=== PATIENT | male | born 1965 | race Caucasian/White ===

== ENCOUNTER 2022-05-08 15:30 | Outpatient (RCR) | payer BC, SELFPAY ==
--- NOTE | 2022-04-04 15:50 | PT.OPEX ---
PT [facility] Outpatient Eval PT [facility] Outpatient Eval Start: 04/04/22 14:13 Freq: Status: Active Protocol: Document 04/04/22 14:14 FRANK (Rec: 04/04/22 14:14 FRANK [id number]) E-Signed By RANDY LandersT, MS Physical Therapy Outpatient Evaluation Insurance Information Insurance Name Blue Cross/Blue Shield Medical Diagnosis Cervicalgia Treating Diagnosis Neck pain, decreased B CS and UE flexibility, posture dysfunction, and deep cervical flexor and periscap weakness Subjective Subjective Pt is a 56 y.o. male who presents to PT with c/o chronic HAs and neck pain of insidious origin several months ago. Believes significant time spent working at a computer and sitting posture led to sxs. No previous hx of HAs. Describes sxs as aching that begins at B occiput, wrapping around his head surrounding B eyes. Daily neck stiffness/soreness with 1-2 incidents of severe HAs with no known cause. Chiropractor provided temporary relief. No exercise but walks occasionally. PSh of renal transplant in 2010. AGGR factors: computer work, turning head (L>R), driving. ALLEV factors: hot shower, rest. 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 HAs appear to be of cervicogenic origin with recreation of sxs with palpation to B SO and upper CS tor. B SO muscles display hypertonicity with TPs. 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 He responded well to MT, stretching and strengthening exercises with resolution of GOMEZ and neck pain following today?s session. He will benefit from continued skilled therapy to address these limitations. Primary Functional Limitations Computer work, turning head (L >R), driving Plan of Care Rehabilitation Potential Excellent Physical Therapy Goals Short-term goals to be completed in 4 weeks: 1. Pt will display >50% improvement in I sitting posture for >1 consecutive PT visit 2. Pt will report improved tolerance to sitting at a computer for >20 minutes with neck pain and HAs <3/10 for 2 consecutive days. Long-term goals to be completed in 10 weeks: 1. Pt will be independent and compliant with HEP 2. Pt will display improved B low and mid trap strength of 5 /5 to improve tolerance to lifting duties at home. 3. Pt will display improved B CS rot AROM >75 deg to check blind spots while driving. 4. Pt will report resolution of GOMEZ sxs for >3 consecutive days with all work and daily activities. Coordination/Communication With Referral Source Treatment Plan/Direct Interventions Joint Mobilization,Manual Therapy,Therapeutic Exercises Frequency/Duration 1x per week for least 6-10 visits, decreasing visit frequency as able. Patient Will Be Discharged From Therapy Completion of LTG(s),Skills Plateau,Independent w/HEP, Independently Progressing Evaluation Billing Untimed Code Treatment Minutes 25 Complexity Moderate
== END 2022-11-23 12:59 | disposition home or self-care (01) ==
PROVIDERS: PCP Internal Medicine; Visit Provider Internal Medicine
DX: M54.2 Cervicalgia (principal); M62.81 Muscle weakness (generalized); Z51.89 Encounter for other specified aftercare
CPT/HCPCS: 97110; 97140; 97162

== ENCOUNTER 2022-05-23 08:06 | Outpatient (CLI) | payer BC, SELFPAY ==
[2022-05-23 11:37] LABS: Phosphorus* 2.6 mg/dL (2.5-4.5)
[2022-05-23 12:39] LABS: Creatinine Urine 95.1 mg/dL
[2022-05-23 12:43] LABS: Microalbumin Creatinine Ratio 10 mg/g (0-30); Microalbumin Urine < 1 mg/dL
[2022-05-23 15:12] LABS: Creatinine* 1.5 mg/dL (0.5-1.5); Estimated Glomerular Filt Rate 55 ml/min; Glucose* 125 mg/dL (60-115)
[2022-05-23 15:23] LABS: Potassium* 4.6 mmol/L (3.6-5.1)
== END 2022-05-23 08:07 | disposition home or self-care (01) ==
PROVIDERS: PCP Internal Medicine; Visit Provider Internal Medicine
DX: D84.821 Immunodeficiency due to drugs (principal); Z79.899 Other long term (current) drug therapy; Z94.0 Kidney transplant status
CPT/HCPCS: 82043; 82565; 82570; 82947; 83735; 84100; 84132

== ENCOUNTER 2022-06-20 07:52 | Outpatient (CLI) | payer BC, SELFPAY ==
--- OUTSIDE RECORDS SUMMARY | 2022-06-20 08:10 | XMS_ITS | Encounter Summary ---
:1965 Author Organization [facility] Address [address] [place] [address] Care Team Providers Name Role Phone Unavailable Primary Care Provider Unavailable Encounter Details Date Type Department Care Team Description 09/29/2011 Hospital Encounter HX RST CRS FLOOR Lanre Lopes, PRACTICE P.A.-C., M.S. [address] [place] [address] (Wo rk) Social History Tobacco Use Types Packs/Day Years Used Date Smoking Tobacco: Never Assessed Alcohol Habits Answer Date Recorded How often do you have a drink containing 4 or more times a w false pass 05/12/2021 alcohol? How many drinks containing alcohol do you have 1 or 2 05/12/2021 on a typical day when you are drinking? How often do you have six or more drinks on one Never 05/12/2021 occasion? Comment: Not asked Social Isolation Answer Date Recorded In a typical week, how many times do you talk on Three times a week 05/12/2021 the phone with family, friends, or neighbors? How often do you get together with friends or Once a week 05/12/2021 relatives? How often do you attend druze or protestant Never 05/12/2021 services? Do you belong to any clubs or organizations such No 05/12/2021 as druze groups, unions, fraternal or athletic groups, or school groups? How often do you attend meetings of the clubs or 1 to 4 time s per year 05/12/2021 organizations you belong to? Are you now , , , 05/12/2021 , never or living with a partner? Physical Activity Answer Date Recorded On average, how many days per week do you engage in moderate to 5 days 05/12/2021 strenuous exercise (like walking fast, running, jogging, dancing, swimming, biking, or other activities that cause a light or heavy sweat)? On average, how many minutes do you engage in exercise at th is 30 min 05/12/2021 level? Stress Answer Date Recorded Do you feel stress - tense, restless, nervous, or Only a lit tle 05/12/2021 anxious, or unable to sleep at night because your mind is troubled all the time - these days? Financial Resource Strain Answer Date Recorded How hard is it for you to pay for the very basics like Not h loren at all 05/12/2021 food, housing, medical care, and heating? Food Insecurity Answer Date Recorded Within the past 12 months, you worried that your food would Never true 05/12/2021 run out before you got money to buy more. Within the past 12 months, the food you bought just didn't N ever true 05/12/2021 last and you didn't have money to get more. Transportation Needs Answer Date Recorded In the past 12 months, has lack of transportation kept you f rom No 05/12/2021 medical appointments or from getting medications? In the past 12 months, has lack of transportation kept you f rom No 05/12/2021 meetings, work, or getting things needed for daily living? Housing Stability Answer Date Recorded In the last 12 months, was there a time when you were not ab le No 05/12/2021 to pay the mortgage or rent on time? In the last 12 months, how many places have you lived? 1 05/12/2021 In the last 12 months, was there a time when you did not hav e a No 05/12/[address] sleep or slept in a intermediate (including now)? Sex Assigned at Date Recorded Male 05/27/2018 8:52 AM CDT documented as of this encounter Plan of Treatment Not on filedocumented as of this encounter Visit Diagnoses Not on filedocumented in this encounter Additional Health Concerns Assessment Noted Time PHQ-9 Depression Total Score: 5 01/04/2011 8:09 AM CDT documented as of this encounter
[2022-06-20 09:46] LABS: Potassium* 4.8 mmol/L (3.6-5.1)
[2022-06-20 09:49] LABS: Creatinine* 1.5 mg/dL (0.5-1.5); Estimated Glomerular Filt Rate 55 ml/min
[2022-06-20 09:50] LABS: Glucose* 100 mg/dL (60-115); Magnesium* 2.1 mg/dL (1.5-2.6); Phosphorus* 3.4 mg/dL (2.5-4.5)
[2022-06-20 09:59] LABS: Creatinine Urine 83.2 mg/dL
[2022-06-20 10:05] LABS: Microalbumin Creatinine Ratio 10 mg/g (0-30); Microalbumin Urine < 1 mg/dL
== END 2022-06-20 07:53 | disposition home or self-care (01) ==
PROVIDERS: PCP Internal Medicine; Visit Provider Internal Medicine
DX: D84.821 Immunodeficiency due to drugs (principal); Z79.899 Other long term (current) drug therapy; Z94.0 Kidney transplant status
CPT/HCPCS: 82043; 82565; 82570; 82947; 83735; 84100; 84132

== ENCOUNTER 2022-08-23 09:38 | Outpatient (REF) | payer BC, SELFPAY ==
--- OUTSIDE RECORDS SUMMARY | 2022-08-23 09:57 | XMS_ITS | Encounter Summary ---
:1965 Author Organization [facility] Address [address] [place] [address] Care Team Providers Name Role Phone Elsewhere, Pcp Primary Care Provider Unavailable Encounter Details Date Type Department Care Team Description 08/14/2022 Hospital Encounter Department of Bryce, Gail [facility] Medicine [facility] (HCC) and Pathology, [address] [place] [address], in [facility] [address] [place] [phone] [place] [address] (Work) [place], [place] [phone] (Fax) [phone] Social History Tobacco Use Types Packs/Day Years Used Date Smoking Tobacco: Never Smokeless Tobacco: Never Alcohol Use Standard Drinks/Week Comments Yes 4 (1 standard drink = 0.6 oz pure alcoho l) Alcohol Habits Answer Date Recorded How often do you have a drink containing 4 or more times a w [place] 05/12/2021 alcohol? How many drinks containing alcohol do you have 1 or 2 05/12/2021 on a typical day when you are drinking? How often do you have six or more drinks on one Never 05/12/2021 occasion? Social Isolation Answer Date Recorded In a typical week, how many times do you talk on Three times a week 05/12/2021 the phone with family, friends, or neighbors? How often do you get together with friends or Once a week 05/12/2021 relatives? How often do you attend pentecostalism or pentecostalism Never 05/12/2021 services? Do you belong to any clubs or organizations such No 05/12/2021 as pentecostalism groups, unions, fraternal or athletic groups, or [...] place to sleep or slept in a fci (including now)? Education Answer Date Recorded What is the highest level of school Master's degree (e.g., Beatrice Kilpatrick, MS, 05/08/2019 you have completed or the highest Young, MEd, FILL TECHNICIAN, ERNIE) degree you have received? Sex Assigned at Date Recorded Male 05/27/2018 8:52 AM CDT documented as of this encounter Medications at Time of Discharge Medication Sig Dispensed Refills Start Date End Date alendronate (FOSAMAX) TAKE 1 TABLET (70 MG 12 tablet 3 06/2407/06/2023 70 mg tablet TOTAL) BY MOUTH ONCE A WEEK. aspirin [address] tablet Take 81 mg by mouth 0 03/2015 daily. atorvastatin (LIPITOR) Take 1 tablet (20 mg 90 tablet 3 03/2018 20 mg tablet total) by mouth daily. calcium carbonate-vit Take 1 tablet by 0 06/30/20 15 D3-min 600 mg calcium- mouth daily. 6 400 unit tablet denosumab (PROLIA) 60 Inject 1 mL (60 mg 1 mL 1 2019 mg/mL syringe total) under the skin every 6 (six) months. flash glucose sensor 1 kit by other route 6 kit 3 10/05 (FreeStyle Emeka 14 Day every 14 (fourteen) Sensor) kitIndications: days. USE 1 SENSOR Diabetes Mellitus Type EVERY 14 DAYS 2 With Diabetic Chronic DIRECTED Kidney Disease (HCC) ketoconazole (NIZORAL) Apply 1 application 120 mL 3 04/25 2 % shampooIndications: topically 3 (three) Intertrigo times a week. Apply to damp skin, lather, leave on 5 minutes, and rinse. May use more often during flares Lactobacillus Take 1 tablet by 0 acidophilus (PROBIOTIC mouth daily. ORAL) multivitamin tablet Take 1 tablet by 0 03/23/2014 mouth daily. mycophenolate TAKE 2 CAPSULES BY 270 capsule 2 01/31/2022 (CELLCEPT) 250 mg MOUTH IN THE MORNING capsuleIndications: AND 1 CAPSULE BY Transplant Renal (HCC) MOUTH IN THE PM TEVA BRAND omega-3 fatty Take 1 capsule by 0 05/23/2016 acids-fish oil mouth daily. 300-1,000 mg per capsule predniSONE (DELTASONE) TAKE 1 TABLET BY 90 tablet 3 022 5 mg tabletIndications: MOUTH ONCE DAILY. Transplant Renal (HCC) tacrolimus (PROGRAF) 1 TAKE TWO CAPSULES BY 360 capsule 3 mg capsuleIndications: MOUTH TWICE A DAY. Transplant Renal (HCC) documented as of this encounter Plan of Treatment Scheduled Orders Name Type Priority Associated Diagnoses Order S chedule Tacrolimus, B Lab Routine Transplant Renal (HCC) Once for 1 Occurrences starting 08/14/2022 unti l 08/14/2022 documented as of this encounter Visit Diagnoses Diagnosis Transplant Renal (HCC) documented in this encounter Care Teams Appointment Coordinator Relationship Specialty Start Date End Date Elsewhere, Pcp PCP - General Internal Medicine 05/02/22 [facility] [place] [address] [place], [place] [address] documented as of this encounter
--- OUTSIDE RECORDS SUMMARY | 2022-08-23 09:57 | XMS_ITS | Encounter Summary ---
:1965 Author Organization [facility] Address [address] [place] [address] Care Team Providers Name Role Phone Elsewhere, Pcp Primary Care Provider Unavailable Encounter Details Date Type Department Care Team Description 08/14/2022 Orders Only Zabrina Long [facility], RMartha., C.C.T.[facility] . (HCC) (Primary Dx) Transplantation and [address] [place] [address] Clinical [facility] in [place], [place] [address] [place] [address] [place] [address] (Work) [phone] Social History Tobacco Use Types Packs/Day Years Used Date Smoking Tobacco: Never Smokeless Tobacco: Never Alcohol Use Standard Drinks/Week Comments Yes 4 (1 standard drink = 0.6 oz pure alcoho l) Alcohol Habits Answer Date Recorded How often do you have a drink containing 4 or more times a w [place] 05/12/2021 alcohol? How many drinks containing alcohol [...] 05/12/2021 relatives? How often do you attend muslim or church Never 05/12/2021 services? Do you belong to any clubs or organizations such No 05/12/2021 as muslim groups, unions, fraternal or athletic groups, or [...] place to sleep or slept in a group home (including now)? Education Answer Date Recorded What is the highest level of school Master's degree (e.g., M MS Shonna, 05/08/2019 you have completed or the highest Young, MEd, CREDIT CONTROL OFFICER, ERNIE) degree you have received? Sex Assigned at Date Recorded Male 05/27/2018 8:52 AM CDT documented as of this encounter Plan of Treatment Scheduled Orders Name Type Priority Associated Diagnoses Order S chedule Tacrolimus, B Lab Routine Transplant Renal (HCC) Expe cted: 08/14/2022, Expires: 08/14/2023 documented as of this encounter Visit Diagnoses Diagnosis Transplant Renal (HCC) - Primary documented in this encounter Care Teams Employment Advisor Relationship Specialty Start Date End Date Elsewhere, Pcp PCP - General Internal Medicine 05/02/22 [facility] [place] [address] [place], [place] [address] documented as of this encounter
--- OUTSIDE RECORDS SUMMARY | 2022-08-23 09:57 | XMS_ITS | Clinical Summary ---
:1965 Author Organization [facility] [place] [address] Care Team Providers Name Role Phone Jhoan Carmen MD Primary Care Provider [phone] Allergies No known active allergies Medications Medication Sig Dispensed Refills Start Date End Date Status OMEGA 3-6-9 40 MG-60 take 1 po twice 0 07/16/2007 Active MG-10 UNIT CAP daily alendronate (FOSAMAX) Take 70 mg by 0 06/09/2015 Active 70 mg tablet mouth every Sunday morning. mycophenolate Take 250 mg by 0 06/09/2015 Active (CELLCEPT) 250 mg mouth. Takes 2 capsule capsules in the am and 1 capsule in the pm predniSONE (DELTASONE) Take 5 mg by 0 06/09/2015 Active 5 mg tablet mouth once daily. In the am tacrolimus (PROGRAF) 1 Take 1 mg by 0 06/09/2015 Active mg capsule mouth. 2 capsules in the am and 2 capsules in the pm Aspirin, Buffered 81 mg Take by mouth 0 06/30/2015 Active tab once daily in the evening. calcium carbonate-vit Take 1 tablet by 0 06/30/2015 Active D3, 600 mg-400 units, mouth 2 times (CALCIUM-VITAMIN D) daily with meals. tablet atorvastatin (LIPITOR) Take 1 tablet by 0 04/24/2017 Active 20 mg tablet mouth once daily. tacrolimus (PROGRAF) 1 Take 2 mg by 0 09/06/2020 Active mg capsule mouth. mycophenolate TAKE 2 CAPSULES 0 10/11/2020 Active (CELLCEPT) 250 mg BY MOUTH IN THE capsule MORNING AND 1 CAPSULE BY MOUTH IN THE PM TEVA BRAND Active Problems Problem Noted Date Anemia of other chronic disease 06/08/2009 Other neutropenia 11/14/2007 Mixed hyperlipidemia 11/12/2007 Hyperpotassemia 11/12/2007 Other B-complex deficiencies 11/12/2007 Nephritis and nephropathy, not specified as acute or c hronic, with unspecified pathological lesion in kidney Unspecified disorder of kidney and ureter Overview: Renal insufficiency Immunizations Name Administration Dates Next Due Hepatitis B (Adult) 06/15/2000, 05/02/1996, 11/02/1995 Influenza A (H1N1), Inactivated (Age >=3 09/14/2009 Years) Influenza, IIV3 (Age >=3 years) 07/08/2009, 07/20/2008 Pneumococcal Poly,23-Valent (Pneumovax) 09/14/2008, 11/30/19 00 Td (Age >=7 Years) 08/06/2002 Tuberculin (PPD) 04/15/2010 Typhoid (injectable) 06/15/2000 Social History Tobacco Use Types Packs/Day Years Used Date Never Smoker Smokeless Tobacco: Never Used Tobacco Cessation: Counseling Given: Yes Alcohol Use Standard Drinks/Week Comments Yes 3.3 (1 standard drink = 0.6 oz pure [place]) 1-2 drinks per week Sex Assigned at Date Recorded Not on file Obstetrics History Last Filed Vital Signs Vital Sign Reading Time Taken Comments Blood Pressure 131/84 01/04/2021 2:44 PM CDT Pulse 72 01/04/2021 2:44 PM CDT Temperature 36.5 ??C (97.7 ??F) 06/30/2015 1:15 PM CDT Respiratory Rate - - Oxygen Saturation 99% 01/04/2021 2:44 PM CDT Inhaled Oxygen Concentration - - Weight 80.1 kg (176 lb 9.6 oz) 01/04/2021 2:44 PM CDT Height 185.7 cm (6' 1.11) 06/30/2015 1:15 PM CDT Body Mass Index 23.23 06/30/2015 1:15 PM CDT Plan of Treatment Health Maintenance Due Date Last Done Comments COVID-19 vaccine series (#1) 04/16/1967 Tdap 1977 Depression screening for age 12+ 1978 HIV for age 15-65 1981 BMI (ht and wt on same day) for age 0110/17/1984 18+ Hepatitis C screening for age 18-79 1984 Colonoscopy through age 75 2011 Lipids for age 45-75 2011 Tetanus booster 08/06/2012 08/06/2002 Zoster (shingles) series for age 50+ 2016 (1 of 2) Influenza for age 50-64 05/25/2022 09/14/2009, 07/08/2009, 07/20/2008 Results Not on filefrom Last 3 Months Insurance Payer Benefit Plan / Subscriber ID Effective Dates Phone Addre ss Type Group BLUE CROSS BLUE CROSS OF [id number] 2016-Present [address] [place] [address] Care Teams Manager Business Information Relationship Specialty Start Date End Date Jhoan Carmen MD PCP - General 01/30/06 [address] [place], [place] [phone]
--- OUTSIDE RECORDS SUMMARY | 2022-08-23 09:57 | XMS_ITS | Encounter Summary ---
:1965 Author Organization [facility] Address [address] [place] [address] Care Team Providers Name Role Phone Elsewhere, Pcp Primary Care Provider Unavailable Encounter Details Date Type Department Care Team Description 06/20/2022 Orders Only Joey christina [facility] External, Or aris for Transplantation and Sofía MTereso Clinical Regeneration in [place], [place] [address] [place] [address] Social History Tobacco Use Types Packs/Day Years Used Date Smoking Tobacco: Never Smokeless Tobacco: Never Alcohol Use Standard Drinks/Week Comments Yes 4 (1 standard drink = 0.6 oz pure alcoho l) Alcohol Habits Answer Date Recorded How often do you have a drink containing 4 or more times a w [place] 05/12/2021 alcohol? How many drinks containing alcohol [...] 05/12/2021 relatives? How often do you attend mormon or spiritism Never 05/12/2021 services? Do you belong to any clubs or organizations such No 05/12/2021 as mormon groups, unions, fraternal or athletic groups, or [...] place to sleep or slept in a alf (including now)? Education Answer Date Recorded What is the highest level of school Master's degree (e.g., M A, MS, 05/08/2019 you have completed or the highest Young, MEd, MEAT CUTTING TEACHER, ERNIE) degree you have received? Sex Assigned at Date Recorded Male 05/27/2018 8:52 AM CDT documented as of this encounter Plan of Treatment Not on filedocumented as of this encounter Procedures Procedure Name Priority Date/Time Associated Comments Diagnosis CBC WITH Routine 06/20/2022 8:00 AM Results f or this DIFFERENTIAL, B CDT procedure ar e in the results section. POTASSIUM, S/P Routine 06/20/2022 8:00 AM Results for this CDT procedure are i n the results section. PHOSPHORUS Routine 06/20/2022 8:00 AM Results f or this (INORGANIC), S CDT procedure are in the results section. MAGNESIUM, S Routine 06/20/2022 8:00 AM Results f or this CDT procedure are i n the results section. GLUCOSE, RANDOM, S/P Routine 06/20/2022 8:00 AM R esults for this CDT procedure are i n the results section. CREATININE WITH Routine 06/20/2022 8:00 AM Result s for this EGFR, S/P CDT procedure are i n the results section. documented in this encounter Results Magnesium (06/20/2022 8:00 AM CDT) athologist Signature EXT Magnesium 2.1 1.5 - 2.6 [place] mg/dL [facility] Specimen (Source) Anatomical Collection Method Collection Time Re ceived Time Location / / Volume Laterality 06/20/2022 8:00 AM CDT Narrative [facility] - 06/20/2022 2:43 PM CDT Source result document attached to Order Number [id number] ([id number]) dated 06/20/2022. External results verified in Extract by Marleny Arvizu on 06/20/2022 at 02:37 PM. Ordering Provider External M.DKg LAB BLOOD ADD-ON Performing Organization Address City/State/[place] [address], [facility] [phone] [facility] Phosphorus Inorganic (06/20/2022 8:00 AM CDT) P athologist Signature EXT Phosphorus 3.4 2.5 - 4.5 [place] (Inorganic), S mg/dL [facility] Specimen (Source) Anatomical Collection Method Collection Time Re ceived Time Location / / Volume Laterality 06/20/2022 8:00 AM CDT Narrative [facility] 06/20/2022 2:43 PM CDT Source result document attached to Order Number [id number] ([id number]) dated 06/20/2022. External results verified in Extract by Marleny Arvizu on 06/20/2022 at 02:37 PM. Ordering Provider Nicole Maldonado LAB BLOOD ADD-ON Performing Organization Address City/[facility] [address]/ZIP Code Phon e Number [address] [address], [facility] [phone] LABORATORY [facility] Glucose, Random (06/20/2022 8:00 AM CDT) athologist Signature EXT Glucose 100 60 - 115 [place] mg/dL [facility] Specimen (Source) Anatomical Collection Method Collection Time Re ceived Time Location / / Volume Laterality 06/20/2022 8:00 AM CDT Narrative [facility] - 06/20/2022 2:43 PM CDT Source result document attached to Order Number [id number] ([id number]) dated 06/20/2022. External results verified in Extract by Marleny Arvizu on 06/20/2022 at 02:37 PM. Ordering Provider Nicole Maldonado LAB BLOOD TROPONIN Performing Organization Address City/[facility] [address]/ZIP Code Phon e Number [address] [phone], [facility] [phone] LABORATORY [facility] Creatinine with Estimated GFR (06/20/2022 8:00 AM CDT) athologist Signature EXT Creatinine 1.5 0.5 - 1.5 [place] mg/dL [facility] Specimen (Source) Anatomical Collection Method Collection Time Re ceived Time Location / / Volume Laterality 06/20/2022 8:00 AM CDT Narrative [facility] - 06/20/2022 2:43 PM CDT Source result document attached to Order Number [id number] ([id number]) dated 06/20/2022. External results verified in Extract by Marleny Arvizu on 06/20/2022 at 02:37 PM. Ordering Provider External M.Enzo LAB BLOOD ADD-ON Performing Organization Address City/[facility] [address]/[facility] Phon e Number [address] [phone] LABORATORY [facility] Potassium (06/20/2022 8:00 AM CDT) athologist Signature EXT Potassium 4.8 3.6 - 5.1 [place] mmol/L [facility] Specimen (Source) Anatomical Collection Method Collection Time Re ceived Time Location / / Volume Laterality 06/20/2022 8:00 AM CDT Narrative [facility] - 06/20/2022 2:43 PM CDT Source result document attached to Order Number [id number] ([id number]) dated 06/20/2022. External results verified in Extract by Marleny Arvizu on 06/20/2022 at 02:37 PM. Ordering Provider External M.Enzo LAB BLOOD ADD-ON Performing Organization Address City/[facility] [address]/[facility] [place] [address], [facility] [phone] LABORATORY [facility] (ABNORMAL) CBC with Differential, Blood (06/20/2022 8:00 AM CDT) [employer] gist Method Time Signature EXT Leukocytes 3.24 (L) 4.50 - [place] 11.00 [facility] K/uL LABORATORY EXT RBC 4.48 4.30 - [place] 5.90 m/uL HOSPITAL LABORATORY EXT Hematocrit 42.3 37.0 - [place] 53.0 % HOSPITAL LABORATORY EXT MCV 94 80 - 100 [facility] HOSPITAL LABORATORY EXT Platelet 164 140 - 440 [place] Count K/uL HOSPITAL LABORATORY EXT RDW 12.0 11.5 - [place] 15.5 % HOSPITAL LABORATORY EXT Neutrophils 2.00 1.7 - 7.0 [place] K/uL HOSPITAL LABORATORY EXT Lymphocytes 0.80 (L) 0.90 - [place] 2.90 K/uL HOSPITAL LABORATORY EXT Monocytes 0.40 0.00 - [place] 0.90 K/UL [facility]OSPITAL LABORATORY EXT Eosinophils 0.00 0.00 - [place] 0.50 K/uL [facility] EXT Basophils 0.00 0.00 - [place] 0.30 K/uL HOSPITAL LABORATORY EXT Hemoglobin 14.5 13.5 - [place] 17.5 [facility] gm/dL LABORATORY Specimen (Source) Anatomical Collection Method Collection Time Re ceived Time Location / / Volume Laterality 06/20/2022 8:00 AM CDT Narrative [facility] - 022 2:43 PM CDT This result has an attachment that is no t available. External results verified in Extract by Marleny Arvizu on 06/20/2022 at 02:37 PM. Ordering Provider External M.DKg LAB BLOOD ADD-ON Performing Organization Address City/State/ZIP Code Phon e Number [facility] [address] [place] [address] documented in this encounter Visit Diagnoses Not on filedocumented in this encounter Care Teams Rural Mail Contractor Relationship Specialty Start Date End Date Elsewhere, Pcp PCP - General Internal Medicine 05/02/22 [facility] of Laboratory Medicine [place] [address] [place], [place] [address] documented as of this encounter
--- OUTSIDE RECORDS SUMMARY | 2022-08-23 09:57 | XMS_ITS | Encounter Summary ---
:1965 Author Organization [facility] Address [address] [place] [address] Care Team Providers Name Role Phone Elsewhere, Pcp Primary Care Provider Unavailable Encounter Details Date Type Department Care Team Description 06/02/2022 Hospital Encounter Department of Bryce, Gail [place] Renal Laboratory Medicine MTereso (HCC) and Pathology, [address] [place] [address], in [facility] [address] [place] [phone] [place] [address] (Work) [place], [place] [phone] [address] (Fax) [phone] Social History Tobacco Use Types Packs/Day Years Used Date Smoking Tobacco: Never Smokeless Tobacco: Never Alcohol Use Standard Drinks/Week Comments Yes 4 (1 standard drink = 0.6 oz pure alcoho l) Alcohol Habits Answer Date Recorded How often do you have a drink containing 4 or more times a w ute 05/12/2021 alcohol? How many drinks containing alcohol [...] 05/12/2021 relatives? How often do you attend congregational or christianity Never 05/12/2021 services? Do you belong to any clubs or organizations such No 05/12/2021 as congregational groups, unions, fraternal or athletic groups, or [...] place to sleep or slept in a retirement (including now)? Education Answer Date Recorded What is the highest level of school Master's degree (e.g., Beatrice Kilpatrick, , 05/08/2019 you have completed or the highest Young, MEd, VISUAL EFFECTS ARTIST, ERNIE) degree you have received? Sex Assigned at Date Recorded Male 05/27/2018 8:52 AM CDT documented as of this encounter Medications at Time of Discharge Medication Sig Dispensed Refills Start Date End Date aspirin [address] tablet Take 81 [...] tabletIndications: MOUTH ONCE DAILY. Transplant Renal (HCC) alendronate (FOSAMAX) TAKE 1 TABLET (70 MG 12 tablet 3 10/202007/06/2022 70 mg tablet TOTAL) BY MOUTH ONCE A WEEK. tacrolimus (PROGRAF) 1 TAKE 2 CAPSULES (2 360 capsule 3 09/202007/03/2022 mg capsuleIndications: MG TOTAL) BY MOUTH 2 Transplant Renal (HCC) (TWO) TIMES A DAY. documented as of this encounter Plan of Treatment Not on filedocumented as of this encounter Procedures Procedure Name Priority Date/Time Associated Comments Diagnosis TACROLIMUS LEVEL, B Routine 06/20/2022 8:00 AM Transplant Mary l Results for this CDT (HCC) procedure are i n the results section. documented in this encounter Results Tacrolimus, B (06/20/2022 8:00 AM CDT) athologist Signature Tacrolimus, B 6.8 5.0-15.0 06/22/2022 [facility] (Trough) 3:26 PM CDT ng/mL Comment: ----ADDITIONAL INFORMATION---- Target steady-state trough concentration s vary depending on the type of transplant, concomitant immunosuppressio n, clinical/institutional protocols, and time post-transplant. Results should be interpreted in conjunction with this clinical information and any physic al signs/symptoms of rejection/toxicity. Testing performed by Liquid Chromatograp hy-Tandem Mass Spectrometry (LC-MS/MS). This test was developed and its performa nce characteristics determined by [facility] in a manner consistent with CLIA requirements. This test has not been cleared or approved by the [place] Marg[place]ita d and Drug Administration. Specimen Anatomical Collection Method Collection Time Receive d Time (Source) Location / / Volume Laterality Blood (Blood, 06/20/2022 8:00 AM 06/22/20 22 Venous) CDT 12:40 PM CDT Resulting Agency Comment Mailed In Specimen Howard Wu M.D. LAB BLOOD NON ADD-ON Performing Organization Address City/State/ZIP Code Phon e Number [facility] [address] [place], [place] [address] [facility] [place] [address] [facility] [address] [place] documented in this encounter Visit Diagnoses Diagnosis Transplant Renal (HCC) documented in this encounter Care Teams Rolling Mill Operator Helper Relationship Specialty Start Date End Date Elsewhere, Pcp PCP - General Internal Medicine 05/02/22 [facility] of Laboratory Medicine [place] [address] [place], [place] [address] documented as of this encounter
--- OUTSIDE RECORDS SUMMARY | 2022-08-23 09:57 | XMS_ITS | Encounter Summary ---
:1965 Author Organization [facility] Address [address] [place] [address] Care Team Providers Name Role Phone Elsewhere, Pcp Primary Care Provider Unavailable Reason for Visit Reason Comments Tacrolimus Adjustment Protocol Encounter Details Date Type Department Care Team Description 06/23/2022 Clinical Ty Aguirre [facility] [place] [place] [facility] Regla M, Adjustment Transplantation and LUCHO Akhtar Protocol Clinical Regeneration [phone] in [facility] [address] [place] [address] Social History Tobacco Use Types Packs/Day Years Used Date Smoking Tobacco: Never Smokeless Tobacco: Never Alcohol Use Standard Drinks/Week Comments Yes 4 (1 standard drink = 0.6 oz pure alcoho l) Alcohol Habits Answer Date Recorded How often do you have a drink containing 4 or more times a w [place] 05/12/2021 alcohol? How many drinks containing alcohol [...] 05/12/2021 relatives? How often do you attend bahai or baptism Never 05/12/2021 services? Do you belong to any clubs or organizations such No 05/12/2021 as bahai groups, unions, fraternal or athletic groups, or [...] place to sleep or slept in a senior living (including now)? Education Answer Date Recorded What is the highest level of school Master's degree (e.g., M A, MS, 05/08/2019 you have completed or the highest Young, MEd, AGRICULTURE LABORER, ERNIE) degree you have received? Sex Assigned at Date Recorded Male 05/27/2018 8:52 AM CDT documented as of this encounter Miscellaneous Notes Telephone Encounter - Regla Perez R.N., CCTN - 06/23/2022 11:37 AM CDT Tacrolimus 6.8 level within goal range of 6-8, per Tacrolimus Adjustment Protocol no dose change recommended. Current Tacrolimus dose 2mg twice a day. Other lab results received and reviewed, stable trends, continue monitoring every 3 months. documented in this encounter Plan of Treatment Not on filedocumented as of this encounter Visit Diagnoses Not on filedocumented in this encounter Care Teams Auto Locator Relationship Specialty Start Date End Date Elsewhere, Pcp PCP - General Internal Medicine 05/02/22 [facility] [place] of Laboratory Medicine [place] [address] [place], [place] [address] documented as of this encounter
--- OUTSIDE RECORDS SUMMARY | 2022-08-23 09:57 | XMS_ITS | Clinical Summary ---
:1965 Author Organization [facility] Address [address] [place] [address] Care Team Providers Name Role Phone Elsewhere, Pcp Primary Care Provider Unavailable Source Comments Patient records contain information from all sites at [facility]. For routine questions regarding patient records, call [phone] during business hours, M-F 8:00 AM - 5:00 PM Central Time. Record requests for emergency care only can be directed to [phone] at any time.[facility] Allergies Active Allergy Reactions Severity Noted Date Comments No Known Allergies Other (see comments) 09/04/2011 Medications Medication Sig Dispensed Refills Start Date End Date Status calcium carbonate-vit Take 1 tablet by 0 06/30/2015 Active D3-min 600 mg calcium- mouth daily. 6 400 unit tablet omega-3 fatty Take 1 capsule by 0 05/23/2016 Active acids-fish oil mouth daily. 300-1,000 mg per capsule multivitamin tablet Take 1 tablet by 0 03/23/2014 Active mouth daily. atorvastatin (LIPITOR) Take 1 tablet (20 90 tablet 3 8 Active 20 mg tablet mg total) by mouth daily. aspirin [address] tablet Take 81 mg by 0 06/30/2015 Active mouth daily. Lactobacillus Take 1 tablet by 0 Active acidophilus (PROBIOTIC mouth daily. ORAL) denosumab (PROLIA) 60 Inject 1 mL (60 1 mL 1 05/28/2020 Active mg/mL syringe mg total) under the skin every 6 (six) months. Additional Information Patient not taking. Reported on 05/02/2022 ketoconazole (NIZORAL) 2 % Apply 1 application 120 mL 3 Active shampooIndications: Intertrigo topically 3 (three) times a week. Apply to damp skin, lather, leave on 5 minutes, and rinse. May use more often during flares Additional Information Patient not taking. Reported on 05/02/2022 flash glucose sensor 1 kit by other 6 kit 3 10/05/2021 Active (FreeStyle Emeka 14 Day route every 14 Sensor) kitIndications: (fourteen) days. Diabetes Mellitus Type 2 USE 1 SENSOR EVERY With Diabetic Chronic 14 DAYS DIRECTED Kidney Disease ([facility]) predniSONE (DELTASONE) 5 TAKE 1 TABLET BY 90 tablet 3 11/07/19 22 Active mg tabletIndications: MOUTH ONCE DAILY. Transplant Renal ([facility]) mycophenolate (CELLCEPT) TAKE 2 CAPSULES BY 270 capsule 2 01/22 Active 250 mg MOUTH IN THE capsuleIndications: MORNING AND 1 Transplant Renal ([facility]) CAPSULE BY MOUTH IN THE PM TEVA BRAND alendronate (FOSAMAX) 70 TAKE 1 TABLET (70 12 tablet 3 022 Active mg tablet MG TOTAL) BY MOUTH 3 ONCE A WEEK. tacrolimus (PROGRAF) 1 mg TAKE TWO CAPSULES 360 capsule 3 06/24 Active capsuleIndications: BY MOUTH TWICE A Transplant Renal ([facility]) DAY. 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 ([facility]) 08/14/2022 Orders Only Transplant Alma, Transplant Mary Blakely ([facility]) (Primary Dx) R.N., C.C.T.C. 07/03/2022 Refill Transplant SelvinNasra Med Refill MILI Barron C.N.PKg, D.N.P. 07/03/2022 Refill Endocrinology Deejay Cordoba Med Refill Joel 06/23/2022 Clinical Transplant Regla Perez Tacrolimus Communication Hermilo Barron CCTN Adjustment Protocol 06/20/2022 Orders Only Transplant External, Ordering Provider, MTereso 06/02/2022 Hospital Encounter Laboratory Medicine Bryce, Howard Cox M.D. ([facility]) 05/31/2022 Orders Only Transplant BryceHoward gonzalez Transplant Francisco al Joel Cox ([facility]) 05/25/2022 Clinical Transplant Alma, Tacrolimus Communication Willie Agarwal R.NKg, C.C.T.C. Protocol 05/23/2022 Orders Only Transplant External, Ordering Provider, MTereso from Last 3 Months Immunizations Name Administration Dates Next Due HepA, Unspecified 05/02/1996, 11/02/1995 HepB, Unspecified 06/15/2000, 05/02/1996, 11/30/1995, 11/02/1995 Influenza Split 07/25/2007, 09/24/2005 Influenza, Injectable, Mdck, 07/22/2021 Quadrivalent PCV13 05/21/2013 PPSV23 12/17/2018, 09/14/2008, 09/24/1999 RZV (SHINGRIX) 11/20/2018, 06/06/2018 SARS-COV-2 (COVID-19) - MODERNA 11/08/2021 Td, (Adult) Unspecified 09/24/2001 Tdap 04/18/2012 TyVi (inj) 06/15/2000 influenza vaccine quad 07/17/2017 (FLUZONE/FLUARIX) (6 months and older)(PF) Social History Tobacco Use Types Packs/Day Years Used Date Smoking Tobacco: Never Smokeless Tobacco: Never Tobacco Cessation: Counseling Given: Not Answered Alcohol Use Standard Drinks/Week Comments Yes 4 (1 standard drink = 0.6 oz pure alcoho l) Alcohol Habits Answer Date Recorded How often do you have a drink containing 4 or more times a w [place] 05/12/2021 alcohol? How many drinks containing alcohol [...] 05/12/2021 relatives? How often do you attend orthodoxy or taoism Never 05/12/2021 services? Do you belong to any clubs or organizations such No 05/12/2021 as orthodoxy groups, unions, fraternal or athletic groups, or [...] place to sleep or slept in a longterm (including now)? Education Answer Date Recorded What is the highest level of school Master's degree (e.g., M Shonna, MS, 05/08/2019 you have completed or the highest Young, MEd, ASSISTANT READING TEACHER, ERNIE) degree you have received? Sex Assigned at Date Recorded Male 05/27/2018 8:52 AM CDT Last Filed Vital Signs Vital Sign Reading Time Taken Comments Blood Pressure 104/70 05/16/2021 1:20 PM CDT Pulse 80 05/25/2020 1:13 PM CDT Temperature 36.8 ??C (98.2 ??F) 05/02/2022 2:46 PM CDT Respiratory Rate 16 05/23/2016 3:30 PM CDT Oxygen Saturation - - Inhaled Oxygen Concentration - - Weight 67.6 kg (149 lb 0.5 oz) 05/02/2022 11:48 AM CDT Height 184.8 cm (6' 0.76) 05/02/2022 11:48 AM CDT Body Mass Index 19.79 05/02/2022 11:48 AM CDT Plan of Treatment Health Maintenance Due Date Last Done Comments CT Colonography 1965 Cologuard 1965 FIT 1965 Hepatitis C Screening 1965 Depression Screening 09/24/2021 (Annual PHQ-2) DTaP,Tdap,and Td Vaccines 04/18/2022 04/18/2012, 09/24/2001 (2 - Td or Tdap) Office Visit for Blood 05/16/2022 05/16/2021 Pressure Check / Re-check Fasting Glucose for 06/20/2023 06/20/2022, 05/23/2022, Diabetes Screening 05/02/2022, Additional history exists Colonoscopy 11/03/2023 11/03/2013 Colorectal Cancer Screening 11/03/2023 Lipid (Cholesterol) 05/02/2027 05/02/2022, 05/13/2021, Screening 05/25/2020, Additional history exists Pneumococcal vaccine (0-64 2031 12/17/2018, 3, years) (4 - PPSV23 if 09/14/2008, Additional available, else PCV20) history exists Hepatitis B Vaccines Completed 06/15/2000, 05/02/1996, 11/30/1995, Additional history exists Zoster Vaccines Completed 11/20/2018, 06/06/2018 COVID-19 Vaccine Completed 06/18/2022, 11/08/2021, 05/17/2021, Additional history exists Influenza Vaccine Completed 07/14/2022, 07/22/2021, 07/17/2017, Additional history exists HPV Vaccines Aged Out No longer eligib le based on patient 's age to complete this topic Medical Devices Implanted Type Area Primary Care Md Device Shelf Model / Identifier Expiration Serial / Date Lot Stent Uret Dbl. J 7 X 12 - Chopra 1309 Ureteral Other/Legacy - Implanted: Qty: 1 on 05/22/2011 Stent See Implant Description Description: Device Primary Care Md - Circo n Surgi. Device Status Text - [id number]. Procedures Procedure Name Priority Date/Time Associated Comments Diagnosis MAGNESIUM, S Routine 06/20/2022 8:00 AM Results f or this CDT procedure are i n the results section. PHOSPHORUS Routine 06/20/2022 8:00 AM Results f or this (INORGANIC), S CDT procedure are in the results section. GLUCOSE, RANDOM, S/P Routine 06/20/2022 8:00 AM R esults for this CDT procedure are i n the results section. CREATININE WITH Routine 06/20/2022 8:00 AM Result s for this EGFR, S/P CDT procedure are i n the results section. POTASSIUM, S/P Routine 06/20/2022 8:00 AM Results for this CDT procedure are i n the results section. CBC WITH Routine 06/20/2022 8:00 AM Results f or this DIFFERENTIAL, B CDT procedure ar e in the results section. TACROLIMUS LEVEL, B Routine 06/20/2022 8:00 AM Transplant Mary l Results for this CDT (HCC) procedure are i n the results section. MAGNESIUM, S Routine 05/23/2022 8:15 AM Results f or this CDT procedure are i n the results section. PHOSPHORUS Routine 05/23/2022 8:15 AM Results f or this (INORGANIC), S CDT procedure are in the results section. GLUCOSE, RANDOM, S/P Routine 05/23/2022 8:15 AM R esults for this CDT procedure are i n the results section. CREATININE WITH Routine 05/23/2022 8:15 AM Result s for this EGFR, S/P CDT procedure are i n the results section. POTASSIUM, S/P Routine 05/23/2022 8:15 AM Results for this CDT procedure are i n the results section. CBC WITH Routine 05/23/2022 8:15 AM Results f or this DIFFERENTIAL, B CDT procedure ar e in the results section. TACROLIMUS LEVEL, B Routine 05/23/2022 8:15 AM Transplant Mary l Results for this CDT (HCC) procedure are i n the results section. from Last 3 Months Results Tacrolimus, B (06/20/2022 8:00 AM CDT)Only the most recent of2 resultswithin the time period is included. P athologist Signature Tacrolimus, B 6.8 5.0-15.0 06/22/2022 SDSC (Trough) 3:26 PM CDT ng/mL Comment: ----ADDITIONAL [...] and its performa nce characteristics determined by [facility] in a manner consistent with CLIA [...] Organization Address City/State/ZIP Code Phon e Number [facility] [address] [place], [place] [address] [place] [address] [place] [address] [place] (ABNORMAL) CBC with Differential, Blood (06/20/2022 8:00 AM CDT)Only the most recent of2 resultswithin the time period is included. [facility] gist Method Time Signature EXT Leukocytes 3.24 (L) 4.50 - [place] 11.00 [facility] K/uL LABORATORY EXT RBC 4.48 4.30 - [place] 5.90 m/uL [facility] LABORATORY EXT Hematocrit 42.3 37.0 - [place] 53.0 % [facility] LABORATORY EXT MCV 94 80 - 100 [facility] LABORATORY EXT Platelet 164 140 - 440 [place] Count K/[facility] LABORATORY EXT RDW 12.0 11.5 - [place] 15.5 % [facility] LABORATORY EXT Neutrophils 2.00 1.7 - 7.0 [place] K/uL [facility] LABORATORY EXT Lymphocytes 0.80 (L) 0.90 - [place] 2.90 K/uL [facility] LABORATORY EXT Monocytes 0.40 0.00 - [place] 0.90 K/[facility] LABORATORY EXT Eosinophils 0.00 0.00 - [place] 0.50 K/uL [facility] LABORATORY EXT Basophils 0.00 0.00 - [place] 0.30 K/uL [facility] LABORATORY EXT Hemoglobin 14.5 13.5 - [place] 17.5 [facility] gm/dL LABORATORY Specimen (Source) Anatomical Collection Method Collection Time Re ceived Time Location / / Volume Laterality 06/20/2022 8:00 AM CDT Narrative [facility] - 022 2:43 PM CDT This result has an attachment that is no t available. External results verified in Extract by Marleny Arvizu on 06/20/2022 at 02:37 PM. Ordering Provider External Joel LAB BLOOD ADD-ON Performing Organization Address City/State/ZIP Code Phon e Number [facility] [address] [place] [address] Potassium (06/20/2022 8:00 AM CDT)Only the most recent of2 resultswithin the time period is included. P athologist Signature EXT Potassium 4.8 3.6 - 5.1 [place] mmol/L [facility] Specimen (Source) Anatomical Collection Method Collection Time Re ceived Time Location / / Volume Laterality 06/20/2022 8:00 AM CDT Narrative [facility] - 06/20/2022 2:43 PM CDT Source result document attached to Order Number [id number] ([id number]) dated 06/20/2022. External results verified in Extract by Marleny Arvizu on 06/20/2022 at 02:37 PM. Ordering Provider External Joel LAB BLOOD ADD-ON Performing Organization Address City/[facility] e Number [address] [phone] LABORATORY [facility] Phosphorus Inorganic (06/20/2022 8:00 AM CDT)Only the most recent of2 results within the time period is included. P athologist Signature EXT Phosphorus 3.4 2.5 - 4.5 [place] (Inorganic), S mg/dL [facility] LABOR[facility] Specimen (Source) Anatomical Collection Method Collection Time Re ceived Time Location / / Volume Laterality 06/20/2022 8:00 AM CDT Narrative [facility] - 06/20/2022 2:43 PM CDT Source result document attached to Order Number [id number] ([id number]) dated 06/20/2022. External results verified in Extract by Marleny Arvizu on 06/20/2022 at 02:37 PM. Ordering Provider External Joel LAB BLOOD ADD-ON Performing Organization Address City/[facility] e Number [address] [phone] LABORATORY [facility] Magnesium (06/20/2022 8:00 AM CDT)Only the most recent of2 resultswithin the time period is included. athologist Signature EXT Magnesium 2.1 1.5 - 2.6 [place] mg/dL [facility] Specimen (Source) Anatomical Collection Method Collection Time Re ceived Time Location / / Volume Laterality 06/20/2022 8:00 AM CDT Narrative [facility] - 06/20/2022 2:43 PM CDT Source result document attached to Order Number [id number] ([id number]) dated 06/20/2022. External results verified in Extract by Marleny Arvizu on 06/20/2022 at 02:37 PM. Ordering Provider External MTereso LAB BLOOD ADD-ON Performing Organization Address City/[facility] [place] [address], [facility] [phone] LABORATORY [facility] Glucose, Random (06/20/2022 8:00 AM CDT)Only the most recent of2 resultswithin the time period is included. athologist Signature EXT Glucose 100 60 - 115 [place] mg/dL [facility] LABOR[facility]ORY Specimen (Source) Anatomical Collection Method Collection Time Re ceived Time Location / / Volume Laterality 06/20/2022 8:00 AM CDT Narrative [facility] - 06/20/2022 2:43 PM CDT Source result document attached to Order Number [id number] ([id number]) dated 06/20/2022. External results verified in Extract by Marleny Arvizu on 06/20/2022 at 02:37 PM. Ordering Provider External MTereso LAB BLOOD TROPONIN Performing Organization Address City/[facility] [place] [address], [facility] [phone] LABORATORY [facility] Creatinine with Estimated GFR (06/20/2022 8:00 AM CDT)Only the most recent of2 resultswithin the time period is included. athologist Signature EXT Creatinine 1.5 0.5 - 1.5 [place] mg/dL HOSPITAL LABORATORY Specimen (Source) Anatomical Collection Method Collection Time Re ceived Time Location / / Volume Laterality 06/20/2022 8:00 AM CDT Narrative [facility] - 06/20/2022 2:43 PM CDT Source result document attached to Order Number [id number] ([id number]) dated 06/20/2022. External results verified in Extract by Marleny Arvizu on 06/20/2022 at 02:37 PM. Ordering Provider External M.D. 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 See document viewer. Healthcare Agents on File Name Relationship Healthcare Agent Relationship Co mmunication Ammarla Paul Spouse Health Care Agent [phone] ( Home) Guido Morocho First Alternate Health Care Agen t Jose Raul Morocho Second Alternate Health Care Age nt Care Teams Machine Chain Maker Relationship Specialty Start Date End Date Elsewhere, Pcp PCP - General Internal Medicine 05/02/22 [facility] [place] [address] [place], [place] [address]
--- OUTSIDE RECORDS SUMMARY | 2022-08-23 09:57 | XMS_ITS | Encounter Summary ---
:1965 Author Organization [facility] Address [address] [place] [address] Care Team Providers Name Role Phone Elsewhere, Pcp Primary Care Provider Unavailable Reason for Visit Reason Comments Med Refill Encounter Details Date Type Department Care Team Description 07/03/2022 Refill Division of Endocrinology in Deejay Cook M.D. Med Refill [place], [place] [address] [facility] [address] [place] [phone] (Wo rk) Social History Tobacco Use Types Packs/Day Years Used Date Smoking Tobacco: Never Smokeless Tobacco: Never Alcohol Use Standard Drinks/Week Comments Yes 4 (1 standard drink = 0.6 oz pure alcoho l) Alcohol Habits Answer Date Recorded How often do you have a drink containing 4 or more times a w [place] 05/12/2021 alcohol? How many drinks containing alcohol [...] 05/12/2021 relatives? How often do you attend moravian or cheondoism Never 05/12/2021 services? Do you belong to any clubs or organizations such No 05/12/2021 as moravian groups, unions, fraternal or athletic groups, or [...] place to sleep or slept in a fdc (including now)? Education Answer Date Recorded What is the highest level of school Master's degree (e.g., Beatrice Kilpatrick MS, 05/08/2019 you have completed or the highest Young, MEd, INTERNET NETWORK SPECIALIST, ERNIE) degree you have received? Sex Assigned at Date Recorded Male 05/27/2018 8:52 AM CDT documented as of this encounter Plan of Treatment Not on filedocumented as of this encounter Visit Diagnoses Not on filedocumented in this encounter Care Teams Quality Engineer Medical Device Relationship Specialty Start Date End Date Elsewhere, Pcp PCP - General Internal Medicine 05/02/22 [facility] [place] [address] [place], [place] [address] documented as of this encounter
--- OUTSIDE RECORDS SUMMARY | 2022-08-23 09:57 | XMS_ITS | Encounter Summary ---
:1965 Author Organization [facility] Address [address] [place] [address] Care Team Providers Name Role Phone Elsewhere, Pcp Primary Care Provider Unavailable Reason for Visit Reason Comments Med Refill Encounter Details Date Type Department Care Team Description 07/03/2022 Refill Joey Gordillo [place], Mark Barron APRN, Med Refill for Transplantation and C.N.P., D.N.P. Clinical Regeneration in [address] [place] [id number] [place] [address] [place], [place] [address] [phone] Social History Tobacco Use Types Packs/Day Years Used Date Smoking Tobacco: Never Smokeless Tobacco: Never Alcohol Use Standard Drinks/Week Comments Yes 4 (1 standard drink = 0.6 oz pure alcoho l) Alcohol Habits Answer Date Recorded How often do you have a drink containing 4 or more times a w [place] 05/12/2021 alcohol? How many drinks containing alcohol [...] How often do you attend muslim or yazidi Never 05/12/2021 services? Do you belong to [...] to sleep or slept in a senior care (including now)? Education Answer Date Recorded What is the highest level of school Master's degree (e.g., M Shonna, MS, 05/08/2019 you have completed or the highest Young, MEd, [place] CONST[employer], ERNIE) degree you have received? Sex Assigned at Date Recorded Male 05/27/2018 8:52 AM CDT documented as of this encounter Plan of Treatment Not on filedocumented as of this encounter Visit Diagnoses Diagnosis Transplant Renal (HCC) documented in this encounter Care Teams Punch Hand Relationship Specialty Start Date End Date Elsewhere, Pcp PCP - General Internal Medicine 05/02/22 [facility] [place] [address] [place], [place] [address] documented as of this encounter
--- OUTSIDE RECORDS SUMMARY | 2022-08-23 09:58 | XMS_ITS | Encounter Summary ---
:1965 Author Organization [facility] Address [address] [place] [address] Care Team Providers Name Role Phone Elsewhere, Pcp Primary Care Provider Unavailable Encounter Details Date Type Department Care Team Description 05/23/2022 Orders Only Joey Ferrer [facility] External, Or aris for Transplantation and Sofía MTereso Clinical Regeneration in [place], [place] [address] [place] [address] Social History Tobacco Use Types Packs/Day Years Used Date Smoking Tobacco: Never Smokeless Tobacco: Never Alcohol Use Standard Drinks/Week Comments Yes 4 (1 standard drink = 0.6 oz pure alcoho l) Alcohol Habits Answer Date Recorded How often do you have a drink containing 4 or more times a w [place] 05/12/2021 alcohol? How many drinks containing alcohol [...] 05/12/2021 relatives? How often do you attend mu-ism or presybeterian Never 05/12/2021 services? Do you belong to any clubs or organizations such No 05/12/2021 as mu-ism groups, unions, fraternal or athletic groups, or [...] for the very basics like Not h lorne at all 05/12/2021 food, housing, medical care, [...] or slept in a intermediate (including now)? Education Answer Date Recorded What is the highest level of school Master's degree (e.g., M A, MS, 05/08/2019 you have completed or the highest Young, MEd, TUBE STATION ATTENDANT, ERNIE) degree you have received? Sex Assigned at Date Recorded Male 05/27/2018 8:52 AM CDT documented as of this encounter Plan of Treatment Not on filedocumented as of this encounter Procedures Procedure Name Priority Date/Time Associated Comments Diagnosis CBC WITH Routine 05/23/2022 8:15 AM Results f or this DIFFERENTIAL, B CDT procedure ar e in the results section. POTASSIUM, S/P Routine 05/23/2022 8:15 AM Results for this CDT procedure are i n the results section. PHOSPHORUS Routine 05/23/2022 8:15 AM Results f or this (INORGANIC), S CDT procedure are in the results section. MAGNESIUM, S Routine 05/23/2022 [...] section. documented in this encounter Results Magnesium (05/23/2022 8:15 AM CDT) P athologist Signature EXT Magnesium 2.0 1.5 - 2.0 SCANNED REPORT ML Specimen (Source) Anatomical Collection Method Collection Time Re ceived Time Location / / Volume Laterality 05/23/2022 8:15 AM CDT Narrative [facility] LOC[facility] - 06/12/2022 3:47 PM CDT Source result document attached to Order Number [id number] ([id number]) dated 05/23/2022. External results verified in Extract by Earnestine Duran on 06/12/2022 at 03:43 PM. Ordering Provider External M.DKg LAB BLOOD ADD-ON Performing Organization Address City/State/ZIP Code Phon e Number [facility] SCANNED REPORT [facility] LOCATION NA GROUP Phosphorus Inorganic (05/23/2022 8:15 AM CDT) P athologist Signature EXT Phosphorus 2.6 2.5 - 4.5 SCANNED REPORT (Inorganic), S mg/dl Specimen (Source) Anatomical Collection Method Collection Time Re ceived Time Location / / Volume Laterality 05/23/2022 8:15 AM CDT Narrative [facility] - 06/12/2022 3:47 PM CDT Source result document attached to Order Number [id number] ([id number]) dated 05/23/2022. External results verified in Extract by Earnestine Duran on 06/12/2022 at 03:43 PM. Ordering Provider Nicole Maldonado LAB BLOOD ADD-ON Performing Organization Address City/State/ZIP Code Phon e Number [facility] SCANNED REPORT [facility] LOC[facility] NA GROUP (ABNORMAL) Glucose, Random (05/23/2022 8:15 AM CDT) athologist Signature EXT Glucose 125 (H) 60 - 115 SCANNED REPORT mg/dL Specimen (Source) Anatomical Collection Method Collection Time Re ceived Time Location / / Volume Laterality 05/23/2022 8:15 AM CDT Narrative [facility] LOCATION GROUP - 06/12/2022 3:47 PM CDT Source result document attached to Order Number [id number] ([id number]) dated 05/23/2022. External results verified in Extract by Earnestine Duran on 06/12/2022 at 03:43 PM. Ordering Provider Nicole Maldonado LAB BLOOD TROPONIN Performing Organization Address City/State/ZIP Code Phon e Number [facility] SCANNED REPORT [facility] LOCATION NA GROUP Creatinine with Estimated GFR (05/23/2022 8:15 AM CDT) athologist Signature EXT Creatinine 1.5 0.5 - 1.5 SCANNED REPORT mg/dL Specimen (Source) Anatomical Collection Method Collection Time Re ceived Time Location / / Volume Laterality 05/23/2022 8:15 AM CDT Narrative [facility] - 06/12/2022 3:47 PM CDT Source result document attached to Order Number [id number] ([id number]) dated 05/23/2022. External results verified in Extract by Earnestine Duran on 06/12/2022 at 03:43 PM. Ordering Provider External Joel LAB BLOOD ADD-ON Performing Organization Address City/State/ZIP Code Phon e Number [facility] LOCATION GROUP SCANNED REPORT [facility] LOCATION NA GROUP Potassium (05/23/2022 8:15 AM CDT) athologist Signature EXT Potassium 4.6 3.6 - 5.1 SCANNED REPORT mmol/L Specimen (Source) Anatomical Collection Method Collection Time Re ceived Time Location / / Volume Laterality 05/23/2022 8:15 AM CDT Narrative [facility] LOCATION GROUP - 06/12/2022 3:47 PM CDT Source result document attached to Order Number [id number] ([id number]) dated 05/23/2022. External results verified in Extract by Earnestine Duran on 06/12/2022 at 03:43 PM. Ordering Provider External Joel LAB BLOOD ADD-ON Performing Organization Address City/[facility]/ZIP Code Phon e Number [facility] LOCATION GROUP SCANNED REPORT [facility] LOCATION NA GROUP (ABNORMAL) CBC with Differential, Blood (05/23/2022 8:15 AM CDT) Patholo gist Method Time Signature EXT Leukocytes 3.68 (L) 4.50 - SCANNED 11.00 K/uL REPORT EXT RBC 4.29 (L) 4.30 - SCANNED 5.90 M/uL REPORT EXT Hemoglobin 14.0 13.5 - SCANNED 17.5 gm/dL REPORT EXT Hematocrit 40.8 37.0 - SCANNED 53.0 % REPORT EXT MCV 95 80 - 100 SCANNED fL REPORT EXT Platelet 155 140 - 440 SCANNED Count K/uL REPORT EXT Neutrophils 2.30 1.7 - 7.0 SCANNED K/UL REPORT EXT Lymphocytes 1.00 0.90 - SCANNED 2.90 K/uL REPORT EXT Monocytes 0.40 0.00 - SCANNED 0.90 K/UL REPORT EXT Eosinophils 0.00 0.00 - SCANNED 0.50 K/uL REPORT EXT Basophils 0.00 0.00 - SCANNED 0.30 K/uL REPORT Specimen (Source) Anatomical Collection Method Collection Time Re ceived Time Location / / Volume Laterality 05/23/2022 8:15 AM CDT Narrative SCANNED REPORT - 06/12/2022 3:47 PM CDT This result has an attachment that is no t available. External results verified in Extract by Earnestine Duran on 06/12/2022 at 03:43 PM. Ordering Provider External M.DKg LAB BLOOD ADD-ON Performing Organization Address City/State/ZIP Code Phon e Number SCANNED REPORT documented in this encounter Visit Diagnoses Not on filedocumented in this encounter Care Teams School Bus Operator Relationship Specialty Start Date End Date Elsewhere, Pcp PCP - General Internal Medicine 05/02/22 [facility] [place] [address] [place], [place] [address] documented as of this encounter
--- OUTSIDE RECORDS SUMMARY | 2022-08-23 09:58 | XMS_ITS | Encounter Summary ---
:1965 Author Organization [facility] Address [address] [place] [address] Care Team Providers Name Role Phone Unavailable Primary Care Provider Unavailable Encounter Details Date Type Department Care Team Description 04/18/2022 Documentation Joey Carissa [facility] Laverne beltran for Transplantation and [address] [place] [address] Clinical [facility] in [place], [place] [address] [place] [address] [place] [address] Social History Tobacco Use Types Packs/Day Years Used Date Smoking Tobacco: Never Smokeless Tobacco: Never Alcohol Use Standard Drinks/Week Comments Yes 6 (1 standard drink = 0.6 oz pure alcoho l) Alcohol Habits Answer Date Recorded How often do you have a drink containing 4 or more times a w [place] 05/12/2021 alcohol? How many drinks containing alcohol [...] 05/12/2021 relatives? How often do you attend yarsani or pentecostalism Never 05/12/2021 services? Do you belong to any clubs or organizations such No 05/12/2021 as yarsani groups, unions, fraternal or athletic groups, or [...] have completed or the highest Young, MEd, WIRELESS SALES ASSOCIATE, ERNIE) degree you have received? Sex Assigned at Date Recorded Male 05/27/2018 8:52 AM CDT documented as of this encounter Plan of Treatment Not on filedocumented as of this encounter Visit Diagnoses Not on filedocumented in this encounter Care Teams Skin Toggler Relationship Specialty Start Date End Date [facility] [place] [address] [place], [place] [address] documented as of this encounter
--- OUTSIDE RECORDS SUMMARY | 2022-08-23 09:58 | XMS_ITS | Encounter Summary ---
:1965 Author Organization [facility] Address [address] [place] [address] Care Team Providers Name Role Phone Elsewhere, Pcp Primary Care Provider Unavailable Reason for Visit Reason Comments Transplant Follow-up Appointment Request (Routine) - Closed Specialty Diagnoses / Procedures Referred By Contact Refer red To Contact Transplant Kidney Pancreas Referral ID Status Reason Start Date Expiration Date Visits Requ ested Visits Authorized [id number] Closed 02/21/2022 02/21/2023 1 Encounter Details Date Type Department Care Team Description 05/02/2022 Office Visit Joey Castaneda, [facility] for Transplantation Josette ( [facility]) (Primary Dx) and Clinical Regeneration MTereso in [facility] rotary adjuster [address] [facility] [address] [place] [phone] Social History Tobacco Use Types Packs/Day Years Used Date Smoking Tobacco: Never Smokeless Tobacco: Never Tobacco Cessation: Counseling Given: Not Answered Alcohol Use Standard Drinks/Week Comments Yes 4 (1 standard drink = 0.6 oz pure alcoho l) Alcohol Habits Answer Date Recorded How often do you have a drink containing 4 or more times a w [place] 05/12/2021 alcohol? How many drinks containing alcohol [...] 05/12/2021 relatives? How often do you attend taoist or buddhist Never 05/12/2021 services? Do you belong to any clubs or organizations such No 05/12/2021 as taoist groups, unions, fraternal or athletic groups, or [...] place to sleep or slept in a long term (including now)? Education Answer Date Recorded What is the highest level of school Master's degree (e.g., M Shonna, MS, 05/08/2019 you have completed or the highest Young, MEd, WATCH PARTS GRINDER, ERNIE) degree you have received? Sex Assigned at Date Recorded Male 05/27/2018 8:52 AM CDT documented as of this encounter Last Filed Vital Signs Vital Sign Reading Time Taken Comments Blood Pressure - - Pulse - - Temperature 36.8 ??C (98.2 ??F) 05/02/2022 2:46 PM CDT Respiratory Rate - - Oxygen Saturation - - Inhaled Oxygen Concentration - - Weight - - Height - - Body Mass Index - - documented in this encounter H&P Notes Josette Hannon M.D. - 05/02/2022 3:00 PM CDT KIDNEY TRANSPLANT FOLLOW UP VISIT REASON FOR VISIT: Tyler Morocho is a 56 y.o. male who presents for kidney transplant and immunosuppression management follow up. 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 He was induced with Campath and has been maintained on triple immunosuppression including tacrolimus, CellCept and prednisone. His last kidney biopsy as part of surveillance was done in April 2016 that did not show recurrence of IgA nephropathy and there was mild tubular atrophy interstitial fibrosis with no major chronic findings. Post transplant, he developed he had low grade BK viremia, that resolved after the reduction of Cellcept dose. His creatinine remains stable at 1.5 mg/dl (baselin 1.4-1.6 mg/dl) When last seen by me, he had elevated fasting blood sugars, and hemoglobin A1c. He has been monitoring that with the freestyle Emeka continuous glucose monitoring. He has lost a lot of weight, intentionally, and his BMI is currently 19.7. His blood sugars significantly improved, and hemoglobin A1c is now within normal range. His blood glucose is within the target range 96% of time, based on CGM. He has had uneventful year. He denies any heart attacks, strokes, cancers or infections. 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 REVIEW OF SYSTEMS: A comprehensive review of systems was obtained and was otherwise negative except what mentioned in the HPI. Answers for HPI/ROS submitted by the patient were reviewed by me when available. PAST MEDICAL AND SURGICAL HISTORIES: Medical records reviewed by me and discussed with the patient and noted below. Past Medical History: Diagnosis Date Hyperlipidemia Hypertension NOS Osteopenia 2010 Renal Disease Past Surgical History: Procedure Laterality Date ANAL SPHINCTEROTOMY N/A 11/14/2011 >Left lateral internal sphincterotomy. ORGAN TRANSPLANT 04/2011 TRANSPLANT KIDNEY - RECIPIENT OF LIVING DONOR WITH BACK TABLE PREP KIDNEY ALLOGRAFT N/A 05/22/2011 >1. Living related donor kidney transplant. 2. Standard back table preparation of renal allograft. ULTRASOUND TRANSRECTAL WITH BIOPSY GUIDED PROSTATE N/A 08/22/2007 >Transrectal diagnostic echography with needle biopsies of the prostate under ultrasound guidance in the ULTRASOUND TRANSRECTAL WITH BIOPSY GUIDED PROSTATE N/A 11/17/2008 >Transrectal diagnostic echography with needle biopsies of the prostate under ultrasound guidance in the ULTRASOUND TRANSRECTAL WITH BIOPSY GUIDED PROSTATE N/A 07/21/2009 >Transrectal diagnostic echography with needle biopsies of the prostate under ultrasound guidance in the CURRENT MEDICATIONS: Current Outpatient Medications on File Prior to Visit Medication Sig Dispense Refill alendronate (FOSAMAX) 70 mg tablet TAKE 1 TABLET (70 MG TOTAL) BY MOUTH ONCE A WEEK. 12 tablet [address] tablet Take 81 mg by mouth daily. atorvastatin (LIPITOR) 20 mg tablet Take 1 tablet (20 mg total) by mouth daily. 90 tablet 3 calcium carbonate-vit D3-min 600 mg calcium- 400 unit tablet Take 1 tablet by mouth daily. 6 flash glucose sensor (FreeStyle Emeka 14 Day Sensor) kit 1 kit by other route every 14 (fourteen) days. USE 1 SENSOR EVERY 14 DAYS DIRECTED 6 kit 3 Lactobacillus acidophilus (PROBIOTIC ORAL) Take 1 tablet by mouth daily. mycophenolate (CELLCEPT) 250 mg capsule TAKE 2 CAPSULES BY MOUTH IN THE MORNING AND 1 CAPSULE BY MOUTH IN THE PM TEVA BRAND 270 capsule 2 omega-3 fatty acids-fish oil 300-1,000 mg per capsule Take 1 capsule by mouth daily. predniSONE (DELTASONE) 5 mg tablet TAKE 1 TABLET BY MOUTH ONCE DAILY. 90 tablet 3 tacrolimus (PROGRAF) 1 mg capsule TAKE 2 CAPSULES (2 MG TOTAL) BY MOUTH 2 (TWO) TIMES A DAY. 360 capsule 3 denosumab (PROLIA) 60 mg/mL syringe Inject 1 mL (60 mg total) under the skin every 6 (six) months. (Patient not taking: No sig reported) 1 mL 1 ketoconazole (NIZORAL) 2 % shampoo Apply 1 application topically 3 (three) times a week. Apply to damp skin, lather, leave on 5 minutes, and rinse. May use more often during flares (Patient not taking: Reported on 05/02/2022) 120 mL 3 multivitamin tablet Take 1 tablet by mouth daily. No current facility-administered medications on file prior to visit. PHYSICAL EXAM: Temp 36.8 ??C , BP 104/70. BMI 19 GENERAL APPEARANCE: alert and no acute distress SKIN: no acute rash LYMPHATICS: no cervical adenopathy LUNGS: clear to auscultation bilaterally CARDIOVASCULAR: regular rhythm, normal rate, no murmurs; no LE edema bilaterally ABDOMEN: soft, nondistended EXTREMETIES: extremities normal - no gross deformities noted NEURO: grossly nonfocal ASSESSMENT / PLAN #1 Status post preemptive living-unrelated donor kidney transplant, April 2011 Kidney allograft function is stable. No recurrent IgA nephropathy per last biopsy in 2016. We will continue current immunosuppression. His tacrolimus level was elevated around 8. This will berepeated in about month or so, and if still elevated, I will reduce the dose to keep it closer to 6 mg/dL. 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 Lower immunosuppression is therefore indicated. #2 End-stage kidney disease secondary to IgA nephropathy #3 Immunosuppression #4 Osteoporosis Patient is currently on Fosamax. He had a drug holiday, approximately 2 years ago, and subsequently restarted. Bone mineral density indicate some changes. His PTH is also elevated. I will review vitamin-D levels, and make adjustments if necessary. #5 Secondary hyperparathyroidism Elevated PTH #6 History of gout, asymptomatic PLAN: 1. Repeat tacrolimus in about 4-6 weeks; the plan is to keep the level closer to 6 2. Review vitamin-D levels, and make adjustments as necessary. Answers submitted by the patient for this visit: General Review of Symptoms (Submitted on 04/29/2022) No general issues: Yes No eye issues: Yes No ENT issues: Yes No heart issues: Yes No respiratory issues: Yes No GI issues: Yes No muscle/bone issues: Yes No skin issues: Yes No neurologic issues: Yes No mental health issues: Yes No blood/lymph issues: Yes No urinary/reproductive issues: Yes documented in this encounter Plan of Treatment Not on filedocumented as of this encounter Procedures Procedure Name Priority Date/Time Associated Diagnosis Comme nts PROSTATE-SPECIFIC Routine 05/02/2022 8:00 AM Transplant Renal Results for this AG (PSA) SCRN, S CDT (HCC) procedure a re in the results section. documented in this encounter Results PSA (Prostate-Specific Antigen) Screen (05/02/2022 8:00 AM CDT) P athologist Signature Prostate-Specif 2.3 <=3.5 ng/mL 05/02/2022 DT ic Ag 4:54 PM CDT Comment: ----ADDITIONAL INFORMATION---- The testing method is an electrochemilum inescence assay manufactured by [employer] and performed on the Modular or Bk system . Values obtained with different assay met hods or kits may be different and cannot be used inte rchangeably. Test results cannot be interpreted as ab solute evidence for the presence or absence of malignant disease. Specimen Anatomical Collection Method Collection Time Receive d Time (Source) Location / / Volume Laterality Blood (Blood, 05/02/2022 8:00 AM 05/02/20 3:50 Venous) CDT PM CDT Josette Hannon M.D. LAB BLOOD ADD-ON Performing Organization Address City/State/ZIP Code Phon e Number [facility] - [address] [place], [place] [address] [facility] [address] Laboratories-[facility] [address] documented in this encounter Visit Diagnoses Diagnosis Transplant Renal (HCC) - Primary documented in this encounter Care Teams Supervisor Pleating Relationship Specialty Start Date End Date Elsewhere, Pcp PCP - General Internal Medicine 05/02/22 [facility] [place] [address] [place], [place] [address] documented as of this encounter
--- OUTSIDE RECORDS SUMMARY | 2022-08-23 09:58 | XMS_ITS | Encounter Summary ---
:1965 Author Organization [facility] Address [address] [place] [address] Care Team Providers Name Role Phone Unavailable Primary Care Provider Unavailable Reason for Referral Outpatient (Routine) - Closed Specialty Diagnoses / Procedures Referred By Contact Refer red To Contact Diagnoses Bone Metabolic Disease Josette Hannon M.D. [facility] Procedures BMD Bone Density Spine Hips [address] [place] [phone] Referral ID Status Reason Start Date Expiration Date Visits Requ ested Visits Authorized [id number] Closed 03/07/2022 03/07/2023 1 1 Encounter Details Date Type Department Care Team Description 03/07/2022 Orders Only Lauri Crow etabolic Disease (Primary Dx); [facility] Shonna Finch Transplant Renal (HCC) and Clinical Regeneration [place] in [facility] [place] [address] [facility] [address] [place] [phone] Social History Tobacco Use Types Packs/Day Years Used Date Smoking Tobacco: Never Smokeless Tobacco: Never Alcohol Use Standard Drinks/Week Comments Yes 6 (1 standard drink = 0.6 oz pure alcoho l) Alcohol Habits Answer Date Recorded How often do you have a drink containing 4 or more times a w [place] 05/12/2021 alcohol? How many drinks containing alcohol [...] 05/12/2021 relatives? How often do you attend confucianism or hinduism Never 05/12/2021 services? Do you belong to any clubs or organizations such No 05/12/2021 as confucianism groups, unions, fraternal or athletic groups, or [...] have completed or the highest Young, MEd, PRODUCE SPECIALIST, ERNIE) degree you have received? Sex Assigned at Date Recorded Male 05/27/2018 8:52 AM CDT documented as of this encounter Plan of Treatment Not on filedocumented as of this encounter Results BMD Bone Density Spine Hips (05/02/2022 9:33 AM CDT) Anatomical Region Laterality Modality Hip, Lumbar Spine, Nuclear Medicine RST LOS, N/A Radiographic Imaging Musculoskeletal ARZ LOS, Muskuloskeletal FLA LOS Specimen (Source) Anatomical Collection Method Collection Time Re ceived Time Location / / Volume Laterality 05/02/2022 11:52 AM CDT Impressions 05/02/2022 11:53 AM CDT Osteoporosis DualFemur (region: Neck Lef t) ?? Narrative 05/02/2022 11:53 AM CDT EXAM: ??BMD BONE DENSITY SPINE HIPS Bone Mineral Density (BMD) analysis perf ormed on KIYATEC with serial number [id number]. COMPARISON: Serial Comparisons Left Total Hip results: Exam Date ? BMD ? T-sco re ? 06/08/2011 ? 0.728 g/cm2 ?? -2.2 ? 06/08/2011 ? 0.730 g/cm2 ?? -2.2 ? 05/21/2012 ? 0.754 g/cm2 ?? -2.0 ? 05/21/2012 ? 0.755 g/cm2 ?? -2.0 ? 05/08/2014 ? 0.782 g/cm2 ?? -1.8 ? 05/23/2016 ? 0.798 g/cm2 ?? -1.7 ? 05/31/2018 ?0.760 g/cm2 ?? -2.0 ? 05/25/2020 ?0.754 g/cm2 ?? -2.0 ? 05/02/2022 ?0.727 g/cm2 ?? -2.2 ? Change vs. Previous (difference): -0.027 g/cm2 Change vs. Previous (%): -3.6 % The absolute BMD change from previous, - 0.027 g/cm2, is greater than least significant change : No The absolute BMD change from baseline, - 0.001 g/cm2, is greater than least significant change : No Right Total Hip results: Exam Date ? BMD ? T-sco re ? 06/08/2011 ? 0.766 g/cm2 ?? -1.9 ? 06/08/2011 ? 0.762 g/cm2 ?? -1.9 ? 05/21/2012 ? 0.778 g/cm2 ?? -1.8 ? 05/21/2012 ? 0.779 g/cm2 ?? -1.8 ? 05/08/2014 ? 0.821 g/cm2 ?? -1.5 ? 05/23/2016 ? 0.838 g/cm2 ?? -1.3 ? 05/31/2018 ?0.779 g/cm2 ?? -1.8 ? 05/25/2020 ?0.801 g/cm2 ?? -1.6 ? 05/02/2022 ?0.776 g/cm2 ?? -1.8 ? Change vs. Previous (difference): -0.025 g/cm2 Change vs. Previous (%): -3.1 % The absolute BMD change from previous, - 0.025 g/cm2, is greater than least significant change : No The absolute BMD change from baseline, 0 .010 g/cm2, is greater than least significant change : No Combined Total Hip results: Exam Date ? BMD ? T-sco re ? 06/08/2011 ? 0.747 g/cm2 ?? -2.1 ? 06/08/2011 ? 0.746 g/cm2 ?? -2.1 ? 05/21/2012 ? 0.766 g/cm2 ?? -1.9 ? 05/21/2012 ? 0.767 g/cm2 ?? -1.9 ? 05/08/2014 ? 0.802 g/cm2 ?? -1.6 ? 05/23/2016 ? 0.818 g/cm2 ?? -1.5 ? 05/31/2018 ?0.770 g/cm2 ?? -1.9 ? 05/25/2020 ?0.778 g/cm2 ?? -1.8 ? 05/02/2022 ?0.752 g/cm2 ?? -2.0 ? Change vs. Previous (difference): -0.026 g/cm2 Change vs. Previous (%): -3.3 % The absolute BMD change from previous, - 0.026 g/cm2, is greater than least significant change : No The absolute BMD change from baseline, 0 .005 g/cm2, is greater than least significant change : No Spine results: Exam Date ? BMD ? T-sco re ? 06/08/2011 ? 0.871 g/cm2 ?? -2.5 ? 06/08/2011 ? 0.872 g/cm2 ?? -2.5 ? 05/21/2012 ? 0.960 g/cm2 ?? -1.8 ? 05/21/2012 ? 0.946 g/cm2 ?? -1.9 ? 05/08/2014 ? 1.008 g/cm2 ?? -1.4 ? 05/23/2016 ? 1.013 g/cm2 ?? -1.3 ? 05/31/2018 ?0.930 g/cm2 ?? -2.0 ? 05/25/2020 ?0.970 g/cm2 ?? -1.7 ? 05/02/2022 ?0.931 g/cm2 ?? -2.0 ? Change vs. Previous (difference): -0.039 g/cm2 Change vs. Previous (%): -4.0 % The absolute BMD change from previous, - 0.039 g/cm2, is greater than the least significant ch cris: No The absolute BMD change from baseline, 0 .060 g/cm2, is greater than the least significant ch cris: Yes FINDINGS: Left Hip: Femur Neck: BMD = 0.674 g/cm2 T-score = -2.6 ?Z-score = -2.0 Total Hip: BMD = 0.727 g/cm2 T-score = -2.2 ?Z-score = -1.9 Right Hip: Femur Neck: BMD = 0.697 g/cm2 T-score = -2.5 ?? Z-score = -1.8 Total Hip: BMD = 0.776 g/cm2 T-score = -1.8 ?Z-score = -1.6 Lumbar Spine: L1: BMD = 0.897 g/cm2 L2: BMD = 0.966 g/cm2 L3: BMD = 1.083 g/cm2 L4: BMD = 1.075 g/cm2 Total Lumbar Spine (L1-L2): BMD = 0.931 g/cm2 T-score = -2.0 ?Z-score = -1.6 Trabecular Bone Score: L1-L2: TBS = 1.314 < 1.23: low 1.23 -1.31: borderline > 1.31: normal A low TBS has been associated with incre ased risk of fractures in certain populations. TBS should not be used alone to determine treatment recommendations. It can be used in conjunction with BMD and FRAX to inform management. Please note: A more comprehensive DXA re port, including images and graphs, is available in [employer]. In the absence of other causes of low BM D or demonstrated skeletal fragility, osteoporosis may be diagnosed in post-menopausal women and m en at or above age 50 when the T-score is at or below -2.5 as defined by the WHO. Low bone density is present at T-scores between -1 and - 2.5. The diagnosis in pre-menopausal women and men < age 50 ca n be based on low bone density or evidence of skeletal fragility in the appropriate clinical se tting. Degenerative changes are present which m ay spuriously elevate the spine BMD measurement. Today's spine scan was compared with the previous scans using a new region, L1- L2 ??(L3,L4) Patient does not meet ISCD guidelines fo r FRAX calculations. (on treatment) Procedure Note Eyad Pitts M.D. - 05/02/2022Form atting of this note might be different from the original. EXAM: BMD BONE DENSITY SPINE HIPS Bone Mineral Density (BMD) analysis perf ormed on KIYATEC with serial number [id number]. COMPARISON: Serial Comparisons Left Total Hip results: Exam Date BMD T-score 06/08/2011 0.728 g/cm2 -2.2 06/08/2011 0.730 g/cm2 -2.2 05/21/2012 0.754 g/cm2 -2.0 05/21/2012 0.755 g/cm2 -2.0 05/08/2014 0.782 g/cm2 -1.8 05/23/2016 0.798 g/cm2 -1.7 05/31/2018 0.760 g/cm2 -2.0 05/25/2020 0.754 g/cm2 -2.0 05/02/2022 0.727 g/cm2 -2.2 Change vs. Previous (difference): -0.027 g/cm2 Change vs. Previous (%): -3.6 % The absolute BMD change from previous, - 0.027 g/cm2, is greater than least significant change : No The absolute BMD change from baseline, - 0.001 g/cm2, is greater than least significant change : No Right Total Hip results: Exam Date BMD T-score 06/08/2011 0.766 g/cm2 -1.9 06/08/2011 0.762 g/cm2 -1.9 05/21/2012 0.778 g/cm2 -1.8 05/21/2012 0.779 g/cm2 -1.8 05/08/2014 0.821 g/cm2 -1.5 05/23/2016 0.838 g/cm2 -1.3 05/31/2018 0.779 g/cm2 -1.8 05/25/2020 0.801 g/cm2 -1.6 05/02/2022 0.776 g/cm2 -1.8 Change vs. Previous (difference): -0.025 g/cm2 Change vs. Previous (%): -3.1 % The absolute BMD change from previous, - 0.025 g/cm2, is greater than least significant change : No The absolute BMD change from baseline, 0 .010 g/cm2, is greater than least significant change : No Combined Total Hip results: Exam Date BMD T-score 06/08/2011 0.747 g/cm2 -2.1 06/08/2011 0.746 g/cm2 -2.1 05/21/2012 0.766 g/cm2 -1.9 05/21/2012 0.767 g/cm2 -1.9 05/08/2014 0.802 g/cm2 -1.6 05/23/2016 0.818 g/cm2 -1.5 05/31/2018 0.770 g/cm2 -1.9 05/25/2020 0.778 g/cm2 -1.8 05/02/2022 0.752 g/cm2 -2.0 Change vs. Previous (difference): -0.026 g/cm2 Change vs. Previous (%): -3.3 % The absolute BMD change from previous, - 0.026 g/cm2, is greater than least significant change : No The absolute BMD change from baseline, 0 .005 g/cm2, is greater than least significant change : No Spine results: Exam Date BMD T-score 06/08/2011 0.871 g/cm2 -2.5 06/08/2011 0.872 g/cm2 -2.5 05/21/2012 0.960 g/cm2 -1.8 05/21/2012 0.946 g/cm2 -1.9 05/08/2014 1.008 g/cm2 -1.4 05/23/2016 1.013 g/cm2 -1.3 05/31/2018 0.930 g/cm2 -2.0 05/25/2020 0.970 g/cm2 -1.7 05/02/2022 0.931 g/cm2 -2.0 Change vs. Previous (difference): -0.039 g/cm2 Change vs. Previous (%): -4.0 % The absolute BMD change from previous, - 0.039 g/cm2, is greater than the least significant ch cris: No The absolute BMD change from baseline, 0 .060 g/cm2, is greater than the least significant ch cris: Yes FINDINGS: Left Hip: Femur Neck: BMD = 0.674 g/cm2 T-score = -2.6 Z-score = -2.0 Total Hip: BMD = 0.727 g/cm2 T-score = -2.2 Z-score = -1.9 Right Hip: Femur Neck: BMD = 0.697 g/cm2 T-score = -2.5 Z-score = -1.8 Total Hip: BMD = 0.776 g/cm2 T-score = -1.8 Z-score = -1.6 Lumbar Spine: L1: BMD = 0.897 g/cm2 L2: BMD = 0.966 g/cm2 L3: BMD = 1.083 g/cm2 L4: BMD = 1.075 g/cm2 Total Lumbar Spine (L1-L2): BMD = 0.931 g/cm2 T-score = -2.0 Z-score = -1.6 Trabecular Bone Score: L1-L2: TBS = 1.314 < 1.23: low 1.23 -1.31: borderline > 1.31: normal A low TBS has been associated with incre ased risk of fractures in certain populations. TBS should not be used alone to determine treatment recommendations. It can be used in conjunction with BMD and FRAX to inform management. Please note: A more comprehensive DXA re port, including images and graphs, is available in [employer]. In the absence of other causes of low BM D or demonstrated skeletal fragility, osteoporosis may be diagnosed in post-menopausal women and m en at or above age 50 when the T-score is at or below -2.5 as defined by the WHO. Low bone density is present at T-scores between -1 and - 2.5. The diagnosis in pre-menopausal women and men < age 50 ca n be based on low bone density or evidence of skeletal fragility in the appropriate clinical se tting. Degenerative changes are present which m ay spuriously elevate the spine BMD measurement. Today's spine scan was compared with the previous scans using a new region, L1- L2 (L3,L4) Patient does not meet ISCD guidelines fo r FRAX calculations. (on treatment) IMPRESSION: Osteoporosis DualFemur (region: Neck Lef t) Josette LOPEZ DXA PROCEDURES documented in this encounter Visit Diagnoses Diagnosis Bone Metabolic Disease - Primary Aftercare Transplant Renal (HCC) Bone Metabolic Disease documented in this encounter Care Teams Explosive Ordnance Technician Relationship Specialty Start Date End Date [facility] [place] [address] [place], [place] [address] documented as of this encounter
--- OUTSIDE RECORDS SUMMARY | 2022-08-23 09:58 | XMS_ITS | Encounter Summary ---
:1965 Author Organization [facility] Address [address] [place] [address] Care Team Providers Name Role Phone Elsewhere, Pcp Primary Care Provider Unavailable Encounter Details Date Type Department Care Team Description 05/31/2022 Orders Only Joey Gordillo Bryce, Larry Staton [facility] Transplantation and [address] [place] [address] in [place], [place] [address] [address] [place] [address] (Work) [phone] Social History Tobacco Use Types Packs/Day Years Used Date Smoking Tobacco: Never Smokeless Tobacco: Never Alcohol Use Standard Drinks/Week Comments Yes 4 (1 standard drink = 0.6 oz pure alcoho l) Alcohol Habits Answer Date Recorded How often do you have a drink containing 4 or more times a w [place] 05/12/2021 alcohol? How many drinks containing alcohol [...] 05/12/2021 relatives? How often do you attend methodist or nondenominational Never 05/12/2021 services? Do you belong to any clubs or organizations such No 05/12/2021 as methodist groups, unions, fraternal or athletic groups, or [...] place to sleep or slept in a halfway (including now)? Education Answer Date Recorded What is the highest level of school Master's degree (e.g., Beatrice Kilpatrick, MS, 05/08/2019 you have completed or the highest Young, MEd, LODGING FACILITIES MANAGER, ERNIE) degree you have received? Sex Assigned at Date Recorded Male 05/27/2018 8:52 AM CDT documented as of this encounter Plan of Treatment Not on filedocumented as of this encounter Results Tacrolimus, B (06/20/2022 8:00 AM CDT) athologist Signature Tacrolimus, B 6.8 5.0-15.0 06/22/2022 [facility] ([place]) 3:26 PM CDT ng/mL Comment: ----ADDITIONAL [...] and its performa nce characteristics determined by [facility] in a manner consistent with CLIA requirements. [...] Organization Address City/State/ZIP Code Phon e Number [facility] [address] [place], [place] [address] [address] [facility] [place] [address] [place] documented in this encounter Visit Diagnoses Diagnosis Transplant Renal (HCC) documented in this encounter Care Teams Biological Lab Technician Relationship Specialty Start Date End Date Elsewhere, Pcp PCP - General Internal Medicine 05/02/22 [facility] [place] [address] [place], [place] [address] documented as of this encounter
--- OUTSIDE RECORDS SUMMARY | 2022-08-23 09:58 | XMS_ITS | Encounter Summary ---
:1965 Author Organization [facility] Address [address] [place] [address] Care Team Providers Name Role Phone Elsewhere, Pcp Primary Care Provider Unavailable Reason for Visit Reason Comments Tacrolimus Adjustment Protocol Encounter Details Date Type Department Care Team Description 05/25/2022 Clinical [facility] Zabrina J, Adjustment Transplantation and RAntwan, C.C.T. C. Protocol Clinical Regeneration [address] [facility] [address] 200 [facility] [phone] [place], [place] (Work) [phone] Social History Tobacco Use Types Packs/Day Years Used Date Smoking Tobacco: Never Smokeless Tobacco: Never Alcohol Use Standard Drinks/Week Comments Yes 4 (1 standard drink = 0.6 oz pure alcoho l) Alcohol Habits Answer Date Recorded How often do you have a drink containing 4 or more times a w [place] 05/12/2021 alcohol? How many drinks containing alcohol [...] 05/12/2021 relatives? How often do you attend protestant or bahai Never 05/12/2021 services? Do you belong to any clubs or organizations such No 05/12/2021 as protestant groups, unions, fraternal or athletic groups, or [...] have completed or the highest Young, MEd, BLOCK HAND, ERNIE) degree you have received? Sex Assigned at Date Recorded Male 05/27/2018 8:52 AM CDT documented as of this encounter Miscellaneous Notes Telephone Encounter - Zabrina Marquez R.N., C.C.T.C. - 05/25/2022 12:07 PM CDT Patient notified via portal Telephone Encounter - Alivia Dumas Pharm.D., R.Ph. 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 Ptreports a 30 pound weight loss since last level-will verify that this was intentional. He would prefer to recheck since he has had fluctuating levels Recent Labs 05/23/22 0815 05/02/22 0806 02/01/22 0806 11/07/21 0820 TACROLIMUS 4.8 L 8.2 6.3 5.8 Dose (mg) 2/2 2/2 2/2 2/2 Adjustment Plan: Okay with repeating level in 1-2 weeks prior to adjustment given previous stability. Telephone Encounter - Zabrina Marquez R.N., C.C.T.C. 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 No New onset GOMEZ? No New onset tremor? No Pharmacy patient uses for immunosuppression: [facility] Any other pertinent information related to above (please comment on any pertinent answers above)? Ptreports a 30 pound weight loss since last level-will verify that this was intentional. He would prefer to recheck since he has had fluctuating levels documented in this encounter Plan of Treatment Not on filedocumented as of this encounter Visit Diagnoses Not on filedocumented in this encounter Care Teams Automotive Parts Clerk Relationship Specialty Start Date End Date Elsewhere, Pcp PCP - General Internal Medicine 05/02/22 [facility] [place] [address] [place], [place] [address] documented as of this encounter
--- OUTSIDE RECORDS SUMMARY | 2022-08-23 09:58 | XMS_ITS | Encounter Summary ---
:1965 Author Organization [facility] Address [address] [place] [address] Care Team Providers Name Role Phone Unavailable Primary Care Provider Unavailable Encounter Details Date Type Department Care Team Description 04/03/2022 Hospital Encounter Department of Arnulfo Hannon Renal Laboratory Medicine Josette ([facility]) and [facility] in [address] [place] [address] [place] [address] [place], [place] [phone] (Work) [phone] Social History Tobacco Use Types Packs/Day Years Used Date Smoking Tobacco: Never Smokeless Tobacco: Never Alcohol Use Standard Drinks/Week Comments Yes 6 (1 standard drink = 0.6 oz pure alcoho l) Alcohol Habits Answer Date Recorded How often do you have a drink containing 4 or more times a w [place] 05/12/2021 alcohol? How many drinks containing alcohol [...] 05/12/2021 relatives? How often do you attend worship or voodoo Never 05/12/2021 services? Do you belong to any clubs or organizations such No 05/12/2021 as worship groups, unions, fraternal or athletic groups, or [...] place to sleep or slept in a usp (including now)? Education Answer Date Recorded What is the highest level of school Master's degree (e.g., Beatrice Kilpatrick, , 05/08/2019 you have completed or the highest Young, MEd, DAIRY CATTLE FARM MANAGER, ERNIE) degree you have received? Sex [...] Name Priority Date/Time Associated Diagnosis Comme nts PROTEIN, TOTAL, 24 Routine 05/02/2022 7:40 AM Transplant Renal Results for this HR, U CDT (HCC) procedure are i n the results section. ALBUMIN, 24 HR, U Routine 05/02/2022 7:40 AM Transplant Renal Results for this CDT (HCC) procedure are i n the results section. documented in this encounter Results Albumin, 24 Hour Collection, Urine (05/02/2022 7:40 AM CDT) P athologist Signature Albumin, 24 Hr, <15 <30 mg/24 h 05/02/2022 DTL U 11:20 AM CDT Comment: ----ADDITIONAL INFORMATION---- This test has been modified from the man ufacturer's instructions. Its performance characteri stics were determined by [facility] in a manner co nsistent with CLIA requirements. This test has not bee n cleared or approved by the U.S. Food and Drug Admin istration. Collection Duration 24 h 05/02/2022 7:47 AM C DT DTL Urine Volume 2944 mL 05/02/2022 8:51 AM CDT DTL Albumin Excretion Rate <10 <20 mcg/min 05/02/2022 11:2 0 AM CDT DTL Specimen Anatomical Collection Method Collection Time Receive d Time (Source) Location / / Volume Laterality Urine (Urine, 24 05/02/2022 7:40 AM 05/02 9:42 Hours) CDT AM CDT Josette Hannon M.D. LAB URINE ORDERABLES Performing Organization Address City/State/ZIP Code Phon e Number [facility] - [address] [place] [address] [address] [place] [address] [facility] 200 [facility] Protein, Total, 24 HR, Urine (05/02/2022 7:40 AM CDT) P athologist Signature Total Protein, <118 <229 mg/24 05/02/2022 DTL 24 HR, U h 10:12 AM CDT Collection 24 h 05/02/2022 DTL Duration 7:47 AM CDT Urine Volume 2944 mL 05/02/2022 DTL 8:51 AM CDT Specimen Anatomical Collection Method Collection Time Receive d Time (Source) Location / / Volume Laterality Urine (Urine, 24 05/02/2022 7:40 AM 05/02 8:51 Hours) CDT AM CDT Josette Hannon M.D. LAB URINE ORDERABLES Performing Organization Address City/State/ZIP Code Phon e Number [facility] - [address] [place] [address] [address] [place] [address] [facility] 200 [facility] documented in this encounter Visit Diagnoses Diagnosis Transplant Renal (HCC) documented in this encounter Care Teams Home Health Aide Relationship Specialty Start Date End Date [facility] [place] [address] [place], [place] [address] documented as of this encounter
--- OUTSIDE RECORDS SUMMARY | 2022-08-23 09:58 | XMS_ITS | Encounter Summary ---
:1965 Author Organization [facility] Address [address] [place] [address] Care Team Providers Name Role Phone Elsewhere, Pcp Primary Care Provider Unavailable Encounter Details Date Type Department Care Team Description 05/03/2022 Documentation Joey Gordillo [facility], Paige Transplantation and Clinical Regeneration in [place], [place] [address] [place] [address] Social History Tobacco Use Types Packs/Day Years Used Date Smoking Tobacco: Never Smokeless Tobacco: Never Alcohol Use Standard Drinks/Week Comments Yes 4 (1 standard drink = 0.6 oz pure alcoho l) Alcohol Habits Answer Date Recorded How often do you have a drink containing 4 or more times a w [place] 05/12/2021 alcohol? How many drinks containing alcohol [...] 05/12/2021 relatives? How often do you attend jain or zoroastrianism Never 05/12/2021 services? Do you belong to any clubs or organizations such No 05/12/2021 as jain groups, unions, fraternal or athletic groups, or [...] you have completed or the highest Young, Macy, BIOGEOGRAPHER, ERNIE) degree you have received? Sex Assigned at Date Recorded Male 05/27/2018 8:52 AM CDT documented as of this encounter Plan of Treatment Not on filedocumented as of this encounter Visit Diagnoses Not on filedocumented in this encounter Care Teams Business Writer Relationship Specialty Start Date End Date Elsewhere, Pcp PCP - General Internal Medicine 05/02/22 [facility] [place] [address] [place], [place] [address] documented as of this encounter
--- OUTSIDE RECORDS SUMMARY | 2022-08-23 09:58 | XMS_ITS | Encounter Summary ---
:1965 Author Organization [facility] Address [address] [place] [address] Care Team Providers Name Role Phone Elsewhere, Pcp Primary Care Provider Unavailable Reason for Referral Outpatient (Routine) - Closed Specialty Diagnoses / Procedures Referred By Contact Refer red To Contact Diagnoses Bone Metabolic Disease Josette Hannon M.D. [facility] Procedures BMD Bone Density Spine Hips [address] [place] [address] Referral ID Status Reason Start Date Expiration Date Visits Requ ested Visits Authorized [id number] Closed 03/07/2022 03/07/2023 1 1 Reason for Visit Outpatient (Routine) - Closed Specialty Diagnoses / Procedures Referred By Contact Refer red To Contact Diagnoses Bone Metabolic Disease Josette Hannon M.D. [facility] Procedures BMD Bone Density Spine Hips [address] [place] [address] Referral ID Status Reason Start Date Expiration Date Visits Requ ested Visits Authorized [id number] Closed 03/07/2022 03/07/2023 1 1 Encounter Details Date Type Department Care Team Description 05/02/2022 Hospital Encounter Department of Kukla, Bone Met abolic Radiology, Julio Cesar Finch, Disease Building, in M.DKg [place], [place] [address] [facility] [address] [place] [phone] Social History Tobacco Use Types Packs/Day Years Used Date Smoking Tobacco: Never Smokeless Tobacco: Never Alcohol Use Standard Drinks/Week Comments Yes 4 (1 standard drink = 0.6 oz pure alcoho l) Alcohol Habits Answer Date Recorded How often do you have a drink containing 4 or more times a w lower [place] 05/12/2021 alcohol? How many drinks containing alcohol [...] 05/12/2021 relatives? How often do you attend hoahaoism or buddhism Never 05/12/2021 services? Do you belong to any clubs or organizations such No 05/12/2021 as hoahaoism groups, unions, fraternal or athletic groups, or [...] have completed or the highest Young, MEd, DIRECT SERVICE PROVIDER, ERNIE) degree you have received? Sex Assigned [...] mg tabletIndications: MOUTH ONCE DAILY. Transplant Renal ([facility]) alendronate (FOSAMAX) TAKE 1 TABLET (70 MG [...] Procedure Name Priority Date/Time Associated Comments Diagnosis BMD BONE DENSITY RAD - Routine 05/02/2022 9:33 Bone Metabolic Resul ts for this SPINE HIPS (most inpatients AM CDT Disease procedure a re in and all the results outpatients) section. documented in this encounter Results BMD Bone Density Spine [...] Mineral Density (BMD) analysis perf ormed on Novitaz with serial number [id number]. COMPARISON: Serial Comparisons Left Total Hip results: [...] Mineral Density (BMD) analysis perf ormed on Novitaz with serial number [id number]. COMPARISON: Serial Comparisons Left Total Hip results: [...] including images and graphs, is available in [employer]. In the absence of other causes of [...] encounter Visit Diagnoses Diagnosis Bone Metabolic Disease documented in this encounter Care Teams Computer Lab Para Professional Relationship Specialty Start Date End Date Elsewhere, Pcp PCP - General Internal Medicine 05/02/22 [facility] of Laboratory Medicine [place] [address] [place], [place] [address] documented as of this encounter
--- OUTSIDE RECORDS SUMMARY | 2022-08-23 09:58 | XMS_ITS | Encounter Summary ---
:1965 Author Organization [facility] Address [address] [place] [address] Care Team Providers Name Role Phone Unavailable Primary Care Provider Unavailable Encounter Details Date Type Department Care Team Description 04/19/2022 Orders Only Aj Cid Transplant Renal Center for 200 [facility] (HCC) (Primary Dx) Transplantation and [place], [place] [address] [place], [place] [phone] 200 [facility] (Work) [place] [address] Social History Tobacco Use Types Packs/Day Years Used Date Smoking Tobacco: Never Smokeless Tobacco: Never Alcohol Use Standard Drinks/Week Comments Yes 6 (1 standard drink = 0.6 oz pure alcoho l) Alcohol Habits Answer Date Recorded How often do you have a drink containing 4 or more times a w [place] 05/12/2021 alcohol? How many drinks containing alcohol [...] 05/12/2021 relatives? How often do you attend scientology or presybeterian Never 05/12/2021 services? Do you belong to any clubs or organizations such No 05/12/2021 as scientology groups, unions, fraternal or athletic groups, or [...] place to sleep or slept in a chcf (including now)? Education Answer Date Recorded What is the highest level of school Master's degree (e.g., Beatrice Kilpatrick, MS, 05/08/2019 you have completed or the highest Young, MEd, BUSINESS TRANSFORMATION CONSULTANT, ERNIE) degree you have received? Sex Assigned at Date Recorded Male 05/27/2018 8:52 AM CDT documented as of this encounter Plan of Treatment Not on filedocumented as of this encounter Results Miscellaneous Research, B (05/02/2022 8:08 AM CDT) P athologist Signature Number of 1 05/02/2022 [facility] Specimens 8:08 AM CDT Specimen Anatomical Collection Method Collection Time Receive d Time (Source) Location / / Volume Laterality Varies (Blood, 05/02/2022 8:08 AM 022 8:08 Venous) CDT AM CDT Jennifer Evangelista M.D. LAB RESEARCH NO RESULT ES LIAO Performing Organization Address City/State/ZIP Code Phon e Number [facility] - [address] [place], [place] [address] [place] [address] Laboratories-[facility] [address] documented in this encounter Visit Diagnoses Diagnosis Transplant Renal (HCC) - Primary documented in this encounter Care Teams Equity Sales Assistant Relationship Specialty Start Date End Date [facility] of Laboratory Medicine [place] [address] [place], [place] [address] documented as of this encounter
--- OUTSIDE RECORDS SUMMARY | 2022-08-23 09:58 | XMS_ITS | Encounter Summary ---
:1965 Author Organization [facility] Address [address] [place] [address] Care Team Providers Name Role Phone Elsewhere, Pcp Primary Care Provider Unavailable Encounter Details Date Type Department Care Team Description 05/11/2022 Orders Only Joey Jasmine, Trans plant Renal (HCC) (Primary Dx); [facility] Transplantation Singh harris R.N. High Risk Medication and Clinical Regeneration [address] in [place], [place] [address] [facility] [address] [place] [address] [phone] Social History Tobacco Use Types Packs/Day Years Used Date Smoking Tobacco: Never Smokeless Tobacco: Never Alcohol Use Standard Drinks/Week Comments Yes 4 (1 standard drink = 0.6 oz pure alcoho l) Alcohol Habits Answer Date Recorded How often do you have a drink containing 4 or more times a w [place] 05/12/2021 alcohol? How many drinks containing alcohol [...] 05/12/2021 relatives? How often do you attend pentecostal or mandaen Never 05/12/2021 services? Do you belong to any clubs or organizations such No 05/12/2021 as pentecostal groups, unions, fraternal or athletic groups, or [...] place to sleep or slept in a jail (including now)? Education Answer Date Recorded What is the highest level of school Master's degree (e.g., Beatrice Kilpatrick, , 05/08/2019 you have completed or the highest Young, MEd, BREASTFEEDING PEER COUNSELOR, ERNIE) degree you have received? Sex Assigned at Date Recorded Male 05/27/2018 8:52 AM CDT documented as of this encounter Plan of Treatment Not on filedocumented as of this encounter Visit Diagnoses Diagnosis Transplant Renal (HCC) - Primary High Risk Medication documented in this encounter Care Teams Electricity Trader Relationship Specialty Start Date End Date Elsewhere, Pcp PCP - General Internal Medicine 05/02/22 [facility] of Laboratory Medicine [place] [address] [place], [place] [address] documented as of this encounter
--- OUTSIDE RECORDS SUMMARY | 2022-08-23 09:58 | XMS_ITS | Encounter Summary ---
:[address] [facility] Address [address] [place] [address] Care Team Providers Name Role Phone Unavailable Primary Care Provider Unavailable Encounter Details Date Type Department Care Team Description 03/06/2022 Clinical Communication Evelyn Sanchez Center for 200 [facility] Transplantation and [place], [place] [address] [place], [place] [phone] 200 [facility] (Work) [place] [address] Social History Tobacco Use Types Packs/Day Years Used Date Smoking Tobacco: Never Smokeless Tobacco: Never Alcohol Use Standard Drinks/Week Comments Yes 6 (1 standard drink = 0.6 oz pure alcoho l) Alcohol Habits Answer Date Recorded How often do you have a drink containing 4 or more times a w [place] 05/12/2021 alcohol? How many drinks containing alcohol [...] 05/12/2021 relatives? How often do you attend evangelical or spiritism Never 05/12/2021 services? Do you belong to any clubs or organizations such No 05/12/2021 as evangelical groups, unions, fraternal or athletic groups, or [...] place to sleep or slept in a skilled nursing (including now)? Education Answer Date Recorded What is the highest level of school Master's degree (e.g., M Shonna, MS, 05/08/2019 you have completed or the highest Young, MEd, SOUND EFFECTS SUPERVISOR, ERNIE) degree you have received? Sex Assigned at Date Recorded Male 05/27/2018 8:52 AM CDT documented as of this encounter Miscellaneous Notes Telephone Encounter - Evelyn Fitzgerald - 03/07/2022 9:[address] order for Derm and BMD ( last one completed 2019) thank you Telephone Encounter - Tino Mcmullen - 03/06/2022 11:45 AM CDT Patient called in to r/s visit with Riddhi. Please call back anytime. Thank you! documented in this encounter Plan of Treatment Not on filedocumented as of this encounter Visit Diagnoses Not on filedocumented in this encounter Care Teams Project Management Advisor Relationship Specialty Start Date End Date [facility] of Laboratory Medicine [place] [address] [place], [place] [address] documented as of this encounter
--- OUTSIDE RECORDS SUMMARY | 2022-08-23 09:58 | XMS_ITS | Encounter Summary ---
:1965 Author Organization [facility] Address [address] [place] [address] Care Team Providers Name Role Phone Elsewhere, Pcp Primary Care Provider Unavailable Reason for Referral Outpatient (Routine) - Closed Specialty Diagnoses / Procedures Referred By Contact Refer red To Contact Diagnoses Transplant Renal (HCC) Josette Hannon M.D. [facility] Procedures DX Chest AP or PA and Lateral 2 Views [address] [place], [place] [address] Referral ID Status Reason Start Date Expiration Date Visits Requ ested Visits Authorized [id number] Closed 03/06/2022 03/06/2023 1 1 Reason for Visit Outpatient (Routine) - Closed Specialty Diagnoses / Procedures Referred By Contact Refer red To Contact Diagnoses Transplant Renal (HCC) Josette Hannon M.D. [facility] Procedures DX Chest AP or PA and Lateral 2 Views [address] [place], [place] [address] Referral ID Status Reason Start Date Expiration Date Visits Requ ested Visits Authorized [id number] Closed 03/06/2022 03/06/2023 1 1 Encounter Details Date Type Department Care Team Description 05/02/2022 Hospital Encounter Department of Arnulfo Hannon Renal Radiology, [facility] ([facility]) [facility], in M.D. [place], [place] [address] [place] [phone] Social History Tobacco Use Types Packs/Day Years Used Date Smoking Tobacco: Never Smokeless Tobacco: Never Alcohol Use Standard Drinks/Week Comments Yes 4 (1 standard drink = 0.6 oz pure alcoho l) Alcohol Habits Answer Date Recorded How often do you have a drink containing 4 or more times a w [place] 05/12/2021 alcohol? How many drinks containing alcohol [...] 05/12/2021 relatives? How often do you attend latter-day or buddhism Never 05/12/2021 services? Do you belong to any clubs or organizations such No 05/12/2021 as latter-day groups, unions, fraternal or athletic groups, or [...] have completed or the highest Young, MEd, SUPERVISOR DYER, ERNIE) degree you have received? Sex Assigned [...] capsuleIndications: AND 1 CAPSULE BY Transplant Renal ([facility]) MOUTH IN THE PM TEVA BRAND omega-3 [...] Procedure Name Priority Date/Time Associated Comments Diagnosis DX CHEST AP OR PA RAD - Routine 05/02/2022 8:52 Transplant Renal Re sults for this AND LATERAL 2 (most inpatients AM CDT (HCC) procedure are in VIEWS and all the results outpatients) section. documented in this encounter Results DX Chest AP or PA and Lateral 2 Views (05/02/2022 8:52 AM CDT) Anatomical Region Laterality Modality Chest, Thoracic RST LOS, Thoracic ARZ LOS, Thoracic N/A Digital Radiography FLA LOS Specimen (Source) Anatomical Collection Method Collection Time Re ceived Time Location / / Volume Laterality 05/02/2022 9:31 AM CDT Impressions 05/02/2022 9:32 AM CDT No change from 05/13/2021. Pulmonary hyperinflation versus good inspiratory effort. Chest otherwise negative. Narrative 05/02/2022 9:32 AM CDT EXAM: ??DX CHEST AP OR PA AND LATERAL 2 VIEWS Procedure Note April Pratt M.D. - 05/02/2022Formatt ing of this note might be different from the original. EXAM: DX CHEST AP OR PA AND LATERAL 2 EWS IMPRESSION: No change from 05/13/2021. Pulmonary hyp erinflation versus good inspiratory effort. Chest otherwise negative. Josette LOPEZ DIAGNOSTIC IMAGING PROCE REINA documented in this encounter Visit Diagnoses Diagnosis Transplant Renal (HCC) documented in this encounter Care Teams Ammonia Nitrate Operator Relationship Specialty Start Date End Date Elsewhere, Pcp PCP - General Internal Medicine 05/02/22 [facility] of Laboratory Medicine [place] [address] [place], [place] [address] documented as of this encounter
--- OUTSIDE RECORDS SUMMARY | 2022-08-23 09:58 | XMS_ITS | Encounter Summary ---
:1965 Author Organization [facility] Address [address] [place] [address] Care Team Providers Name Role Phone Elsewhere, Pcp Primary Care Provider Unavailable Encounter Details Date Type Department Care Team Description 05/02/2022 Hospital Encounter Department of Arnulfo Hannon Renal Laboratory Medicine Josette ([facility]) and PathologyJoel [facility], in [address] [place] [address] [place] [address] [place], [place] [phone] (Work) [phone] Social History Tobacco Use Types Packs/Day Years Used Date Smoking Tobacco: Never Smokeless Tobacco: Never Alcohol Use Standard Drinks/Week Comments Yes 4 (1 standard drink = 0.6 oz pure alcoho l) Alcohol Habits Answer Date Recorded How often do you have a drink containing 4 or more times a w [place] 05/12/2021 alcohol? How many drinks containing alcohol [...] 05/12/2021 relatives? How often do you attend voodoo or restorationist Never 05/12/2021 services? Do you belong to any clubs or organizations such No 05/12/2021 as voodoo groups, unions, fraternal or athletic groups, or [...] place to sleep or slept in a custodial (including now)? Education Answer Date Recorded What is the highest level of school Master's degree (e.g., Beatrice Kilpatrick MS, 05/08/2019 you have completed or the highest Young, MEd, BLADE GRINDER, ERNIE) degree you have received? Sex [...] Procedure Name Priority Date/Time Associated Comments Diagnosis JARVIS/KID STORAGE, U Routine 05/02/2022 9:24 AM Transplant Renal Results for this CDT ([facility]) procedure are i n the results section. DIPSTICK, U Routine 05/02/2022 9:23 AM Results f or this CDT procedure are i n the results section. MICROSCOPIC AUTOMATED Routine 05/02/2022 9:23 AM Results for this CDT procedure are i n the results section. BACTERIAL CULTURE, Routine 05/02/2022 9:23 AM Transplant Renal Results for this AEROBIC + SUSC, URINE CDT ([facility]) proced ure are in the results section. PH, U Routine 05/02/2022 9:23 AM Results f or this CDT procedure are i n the results section. OSMOLALITY, U Routine 05/02/2022 9:23 AM Results for this CDT procedure are i n the results section. URINALYSIS WITH Routine 05/02/2022 9:23 AM Transplant Renal Re sults for this MICROSCOPIC CDT ([facility]) procedure are i n the results section. documented in this encounter Results Jarvis/Kid Storage, Urine (05/02/2022 9:24 AM CDT) Analysis Performed At Patho logist Time Signature Jarvis/Kid Collected DEFAULT 05/02/2022 HSS Storage, U 9:24 AM CDT Specimen Anatomical Collection Method Collection Time Receive d Time (Source) Location / / Volume Laterality Urine (Urine, 05/02/2022 9:24 AM 05/02/20 9:24 Voided) CDT AM CDT Josette Hannon M.D. LAB URINE ORDERABLES Performing Organization Address City/State/ZIP Code Phon e Number [facility] - [address] [place], [place] [address] [facility] [place] [address] [facility] 200 [facility] Dipstick, Urine (05/02/2022 9:23 AM CDT) [facility] gist Method Time Signature Hemoglobin, Negative Negative 05/02/2022 DTL QL, U 11:12 AM CDT Leukocyte Negative Negative 05/02/2022 DTL Esterase, U 11:12 AM CDT Nitrite, U Negative Negative 05/02/2022 DTL 11:12 AM CDT Ketone, U Negative Negative 05/02/2022 DTL mg/dL 11:12 AM CDT Glucose, U Negative Negative 05/02/2022 DTL mg/dL 11:12 AM CDT Specimen Anatomical Collection Method Collection Time Receive d Time (Source) Location / / Volume Laterality Urine 05/02/2022 9:23 AM 2 CDT 10:10 AM CDT Josette Hannon M.D. LAB URINE ORDERABLES Performing Organization Address City/State/ZIP Code Phon e Number [facility] - 200 [place], [place] [address] [place] [address] [place] [address] Osmolality, Urine (05/02/2022 9:23 AM CDT) athologist Signature Osmolality, U 413 [address] 05/02/2022 DTL mOsm/kg 10:48 AM CDT Specimen Anatomical Collection Method Collection Time Receive d Time (Source) Location / / Volume Laterality Urine 05/02/2022 9:23 AM 2 CDT 10:10 AM CDT Josette Hannon M.D. LAB URINE ORDERABLES Performing Organization Address City/State/ZIP Code Phon e Number [facility] - 200 [place], [place] [address] [place] [phone] [place] [address] pH, Urine (05/02/2022 9:23 AM CDT) P athologist Signature pH, U 5.6 4.5 - 8.0 05/02/2022 10:48 DTL AM CDT Specimen Anatomical Collection Method Collection Time Receive d Time (Source) Location / / Volume Laterality Urine 05/02/2022 9:23 AM 2 CDT 10:10 AM CDT Josette Hannon M.D. LAB URINE ORDERABLES Performing Organization Address City/[facility]/ZIP Code Phon e Number [facility] - [address] [place], [place] [address] [facility] [place] [phone] [place] [address] 200 [facility] Microscopic Automated (05/02/2022 9:23 AM CDT) P athologist Signature Microscopy Normal 05/02/2022 DTL 11:12 AM CDT Specimen Anatomical Collection Method Collection Time Receive d Time (Source) Location / / Volume Laterality Urine 05/02/2022 9:23 AM 2 CDT 10:10 AM CDT Josette Hannon M.D. LAB URINE ORDERABLES Performing Organization Address City/[facility] Code Phon e Number [facility] - [address] [place], [place] [address] [facility] [place] [address] Bacterial Culture, Aerobic + Susc, Urine (05/02/2022 9:23 AM CDT) [facility] Method Time Signature Urine Culture No growth 05/03/2022 DT after 1 day 8:31 AM CDT of incubation. Specimen Anatomical Collection Method Collection Time Receive d Time (Source) Location / / Volume Laterality Urine (Urine, 05/02/2022 9:23 AM 05/02/20 22 [place]) CDT 10:25 AM CDT Comment: Specimen Source Site: Urine Josette Hannon M.D. LAB MICROBIOLOGY - GENERAL O RDERABLES Performing Organization Address City/[facility]/ZIP Code Phon e Number [facility] - [address] [place], [place] [address] [facility] [place], [place] [phone] [place] [address] Urinalysis with Microscopic: Urine, [place] (05/02/2022 9:23 AM CDT) PathBadoo Method Time Signature Source Urine, Urine, 05/02/2022 DTL [place] 10:10 AM CDT Color, U Yellow 05/02/2022 DTL 10:10 AM CDT Clarity, U Clear 05/02/2022 DTL 10:10 AM CDT Protein, U 7 <26 mg/dL 05/02/2022 DTL 11:16 AM CDT Protein/Osmol 0.17 <0.42 05/02/2022 DTL ality ratio 11:16 AM CDT Predicted 24 173 mg/24 h 05/02/2022 DTL Hr Protein 11:16 AM CDT Predicted 55-547 mg/24 h 05/02/2022 DTL Range 11:16 AM CDT Specimen Anatomical Collection Method Collection Time Receive d Time (Source) Location / / Volume Laterality Urine (Urine, 05/02/2022 9:23 AM 05/02/20 22 [place]) CDT 10:10 AM CDT Josette Hannon M.D. LAB URINE ORDERABLES Performing Organization Address City/State/ZIP Code Phon e Number [facility] - [address] [place], [place] [address] [facility] [place] [address] [facility] [address] documented in this encounter Visit Diagnoses Diagnosis Transplant Renal (HCC) documented in this encounter Care Teams Metal Bending Machine Operator Relationship Specialty Start Date End Date Elsewhere, Pcp PCP - General Internal Medicine 05/02/22 [facility] of Laboratory Medicine [place] [address] [place], [place] [address] documented as of this encounter
--- OUTSIDE RECORDS SUMMARY | 2022-08-23 09:58 | XMS_ITS | Encounter Summary ---
:1965 Author Organization [facility] Address 200 [place] [address] Care Team Providers Name Role Phone Unavailable Primary Care Provider Unavailable Encounter Details Date Type Department Care Team Description 04/18/2022 Orders Only Aj Cid Transplant Renal Center for 200 [facility] (HCC) (Primary Dx) Transplantation [place], [place] [address] [place], [place] [phone] 200 [facility] (Work) [place] [address] Social History Tobacco Use Types Packs/Day [...] 05/12/2021 relatives? How often do you attend religious or synagogue Never 05/12/2021 services? Do you belong to any clubs or organizations such No 05/12/2021 as religious groups, unions, fraternal or athletic groups, or [...] have completed or the highest Young, MEd, KOSHER DIETARY SERVICE SUPERVISOR, ERNIE) degree you have received? Sex Assigned at Date Recorded Male 05/27/2018 8:52 AM CDT documented as of this encounter Miscellaneous Notes Addendum Note - Mirna Damian - 04/18/2022 3:17 PM CDT Addended by: MIRNA DAMIAN on: 04/19/2022 07:46 AM Modules accepted: Orders documented in this encounter Plan of Treatment Not on filedocumented as of this encounter Visit Diagnoses Diagnosis Transplant Renal (HCC) - Primary documented in this encounter Care Teams Medicine And Health Service Manager Relationship Specialty Start Date End Date [facility] of Laboratory Medicine [place] [address] [place], [place] [address] documented as of this encounter
--- OUTSIDE RECORDS SUMMARY | 2022-08-23 09:58 | XMS_ITS | Encounter Summary ---
:1965 Author Organization [facility] Address [address] [place] [address] Care Team Providers Name Role Phone Elsewhere, Pcp Primary Care Provider Unavailable Encounter Details Date Type Department Care Team Description 05/02/2022 Hospital Encounter Department of [place], Transpla nt Renal (HCC); Laboratory Medicine High Odette Finch Medication; and Pathology, M.D. Immunodeficiency Due To Drugs (HCC) [facility] in [address] [facility] [id number] [address] [facility] [phone] [place], [place] (Work) [phone] Social History Tobacco Use Types Packs/Day Years Used Date Smoking Tobacco: Never Smokeless Tobacco: Never Alcohol Use Standard Drinks/Week Comments Yes 4 (1 standard drink = 0.6 oz pure alcoho l) Alcohol Habits Answer Date Recorded How often do you have a drink containing 4 or more times a w [place] 05/12/2021 alcohol? How many drinks containing alcohol [...] 05/12/2021 relatives? How often do you attend [employer] or mormon Never 05/12/2021 services? Do you belong to any clubs or organizations such No 05/12/2021 as [employer] groups, unions, fraternal or athletic groups, or [...] place to sleep or slept in a residential (including now)? Education Answer Date Recorded What is the highest level of school Master's degree (e.g., M A, MS, 05/08/2019 you have completed or the highest Young, MEd, [employer], ERNIE) degree you have received? Sex Assigned [...] Procedure Name Priority Date/Time Associated Comments Diagnosis BKV DNA DETECT/QUANT, P Routine 05/02/2022 8:08 AM Transplant Renal Results for this CDT (HCC) procedure are i n the results section. HLA CLASS I/II COMBINED Routine 05/02/2022 8:08 AM Results for this CPRA, SERUM CDT procedure are i n the results section. MISC RESEARCH ORDER, B Routine 05/02/2022 8:08 AM Transplant R enal Results for this CDT (HCC) procedure are i n the results section. LIPID PANEL, S Routine 05/02/2022 8:08 AM Transplant Renal Res ults for this CDT (HCC) procedure are i n the results section. CMV DNA DETECT/QUANT, P Routine 05/02/2022 8:08 AM Transplant Renal Results for this CDT (HCC) procedure are i n the results section. JARVIS/KID POST TRANS Routine 05/02/2022 8:08 AM Transplant Renal Results for this STORAGE, B CDT (HCC) procedure are i n the results section. MYCOPHENOLIC ACID, S Routine 05/02/2022 8:08 AM Transplant Francisco al Results for this CDT (HCC) procedure are in High Risk the results Medication section. Immunodeficiency Due To Drugs ([facility]) HLA CLASS II SAB Routine 05/02/2022 8:08 AM Transplant Renal R esults for this ANTIBODY SCREEN CDT (HCC) procedure ar e in the results section. HLA CLASS I SAB Routine 05/02/2022 8:08 AM Transplant Renal Re sults for this ANTIBODY SCREEN CDT (HCC) procedure ar e in the results section. 25-HYDROXYVITAMIN D2 Routine 05/02/2022 8:08 AM Transplant Francisco al Results for this AND D3, S CDT (HCC) procedure are i n the results section. CBC WITH DIFFERENTIAL, Routine 05/02/2022 8:08 AM Transplant R enal Results for this B CDT (HCC) procedure are i n the results section. TROPONIN T, 5TH GEN, P Routine 05/02/2022 8:08 AM Transplant R enal Results for this CDT (HCC) procedure are i n the results section. PHOSPHORUS (INORGANIC), Routine 05/02/2022 8:08 AM Transplant Renal Results for this S CDT (HCC) procedure are i n the results section. PARATHYROID HORMONE Routine 05/02/2022 8:08 AM Transplant Mary l Results for this (PTH), S CDT ([facility]) procedure are i n the results section. MAGNESIUM, S Routine 05/02/2022 8:08 AM Transplant Renal Resul ts for this CDT (HCC) procedure are i n the results section. HEMOGLOBIN A1C, B Routine 05/02/2022 8:08 AM Transplant Renal Results for this CDT ([facility]) procedure are i n the results section. COMPREHENSIVE METABOLIC Routine 05/02/2022 8:08 AM Transplant Renal Results for this PANEL, S/P CDT ([facility]) procedure are i n the results section. ACTIVATED PARTIAL Routine 05/02/2022 8:07 AM Transplant Renal Results for this THROMBOPLASTIN TIME CDT ([facility]) procedur e are in (APTT), P the results section. PROTHROMBIN TIME (PT), Routine 05/02/2022 8:07 AM Transplant R enal Results for this P CDT ([facility]) procedure are i n the results section. TACROLIMUS LEVEL, B Routine 05/02/2022 8:06 AM Transplant Mary l Results for this CDT (HCC) procedure are in High Risk the results Medication section. Immunodeficiency Due To Drugs ([facility]) documented in this encounter Results HLA Class I/II Combined cPRA, S (05/02/2022 8:08 AM CDT) [facility] Method Time Signature Class I/II 0 Not Applicable 05/04/2022 DBB8 Combined cPRA 3:00 PM CDT Comment: ----ADDITIONAL INFORMATION---- Calculated PRA (cPRA) is the percentage of donors expected to have HLA antigens listed as unacceptable for a candidate on the waiting list. Unacceptable antigens include serologic equivalents that have a normalized Mean Fluorescence Intensity (MFI) >= 2000 and antigens that demonstr ate Prozone Phenomenon. The cPRA is calculated based on the HLA frequencies published by UNOS/OPTN listed here: http://optn.tr ansplant.[facility].gov CLIA: [id number] ??CLIA Premix Concrete Batcher: LEON STRATTON MD,PhD Combined cPRA Specificities NONE 05/04/2022 3 :00 PM CDT DBB8 Specimen Anatomical Collection Method Collection Time Receive d Time (Source) Location / / Volume Laterality Blood 05/02/2022 8:08 AM 9:32 CDT AM CDT Josette Hannon M.D. LAB HLA ORDERABLES Performing Organization Address City/[facility] Code Phon e Number [facility] - [address] [place], [place] [address] [facility] [place] [address] [place] [address] Miscellaneous Research, B (05/02/2022 8:08 AM CDT) athologist Signature Number of 1 05/02/2022 HSS Specimens 8:08 AM CDT Specimen Anatomical Collection Method Collection Time Receive d Time (Source) Location / / Volume Laterality Varies (Blood, 05/02/2022 8:08 AM 022 8:08 Venous) CDT AM CDT Jennifer Evangelista M.D. LAB RESEARCH NO RESULT TYRONEI NG Performing Organization Address [facility] Phon e Number [facility] - [address] [place], [place] [address] [facility] [address] (ABNORMAL) BKV DNA Detect/Quant (05/02/2022 8:08 AM CDT) Patholo gist Method Time Signature BKV DNA <22 (A) Undetected 05/02/2022 [facility] Detect/Quant, IU/mL 6:28 PM CDT P Comment: Result in log IU/mL is <1.34. BKV DNA is detected, but level present i s <22 IU/mL (<1.34 log IU/mL). This assay cannot accurately quantify BKV DNA below this level. ----ADDITIONAL INFORMATION---- The quantification range of this assay i s 22 to 100,000,000 IU/mL (1.34 log to 8.00 log IU/mL). Testing was performe d using the tosin BKV test ([employer] with the tosin 6800 System. Specimen Anatomical Collection Method Collection Time Receive d Time (Source) Location / / Volume Laterality Blood (Blood, 05/02/2022 8:08 AM 05/02/20 22 Venous) CDT 10:25 AM CDT Josette Hannon M.D. LAB MICROBIOLOGY - BLOOD ORD ERABLES Performing Organization Address City/[facility]/ZIP Code Phon e Number [facility] [address] [place], [place] [address] [facility] [place] [address] Laboratory Medicine and Pathology [address] [place] (ABNORMAL) Parathyroid Hormone (PTH) (05/02/2022 8:08 AM CDT) Analysis Performed At Patho logist Time Signature Parathyroid 137 (H) 15 - 65 05/02/2022 DTL Hormone (PTH), S pg/mL 9:18 AM CDT Specimen Anatomical Collection Method Collection Time Receive d Time (Source) Location / / Volume Laterality Blood (Blood, 05/02/2022 8:08 AM 05/02/20 8:48 Venous) CDT AM CDT Josette Hannon M.D. LAB BLOOD ADD-ON Performing Organization Address City/State/ZIP Code Phon e Number [facility] - [address] [place], [place] [address] [facility] [place] [address] Laboratories-[facility] [address] 25-Hydroxyvitamin D2 and D3 (05/02/2022 8:08 AM CDT) P athologist Signature 25-Hydroxy D2 <4.0 ng/mL 05/02/2022 SDS 11:51 PM CDT 25-Hydroxy D3 40 ng/mL 05/02/2022 SDSC 11:51 PM CDT 25-Hydroxy D 40 ng/mL 05/02/2022 [facility] Total 11:51 PM CDT Comment: ----REFERENCE VALUE---- 25-HYDROXY D TOTAL (D2+D3) Optimum level s in the healthy population are 20-50, patients with bone disease may benefit from higher levels within this r cris. ----ADDITIONAL INFORMATION---- This test was developed and its performa nce characteristics determined by [facility] in a manner consistent with CLIA requirements. This test has not been cleared or approved by the U.[place]. Marg[place] d and Drug Administration. Specimen Anatomical Collection Method Collection Time Receive d Time (Source) Location / / Volume Laterality Blood (Blood, 05/02/2022 8:08 AM 05/02/20 Venous) CDT 10:59 AM CDT Josette Hannon M.D. LAB BLOOD ADD-ON Performing Organization Address [facility] Phon e Number [facility] [address] [place] [address] SUPPORT [facility] [place] [address] Laboratory Medicine and Pathology [address] [place] [address] Dr. ME[place] CMV DNA Detect / Quant, Plasma (05/02/2022 8:08 AM CDT) [facility] Method Time Signature CMV DNA Undetected Undetected 05/02/2022 [facility] Detect/Quant, IU/mL 5:26 PM CDT P Comment: Result in log IU/mL is Undetected. ----ADDITIONAL INFORMATION---- The quantification range of this assay i s 35 to 10,000,000 IU/mL (1.54 log to 7.00 log IU/mL). Testing was performed u sing the tosin CMV test ([employer] with the tosin 6800 System. Specimen Anatomical Collection Method Collection Time Receive d Time (Source) Location / / Volume Laterality Blood (Blood, 05/02/2022 8:08 AM 05/02/20 Venous) CDT 10:25 AM CDT Josette Hannon M.D. LAB MICROBIOLOGY - BLOOD ORD ERABLES Performing Organization Address City/[facility] Phon e Number [facility] [address] [place] [address] SUPPORT [facility] [place] [address] Laboratory Medicine and Pathology [address] [place] [address] Dr. MEAD HLA Class II SAB Antibody Screen (05/02/2022 8:08 AM CDT) [facility] Signature Class II SAB Negative Not Applicable 05/04/2022 DBB8 Overall Result 10:23 AM CDT SAB DRB1 NONE 05/04/2022 DBB8 Specificity 10:23 AM CDT SAB [id number] NONE 05/04/2022 DBB8 Specificity 10:23 AM CDT SAB DQB1 NONE 05/04/2022 DBB8 Specificity 10:23 AM CDT SAB DPB1 NONE 05/04/2022 DBB8 Specificity 10:23 AM CDT Comment: ----ADDITIONAL INFORMATION---- Method: Luminex Flow Cytometry CLIA: [id number] ??CLIA Premix Concrete Batcher: LEON STRATTON MD,PhD Specimen Anatomical Collection Method Collection Time Receive d Time (Source) Location / / Volume Laterality Blood (Blood, 05/02/2022 8:08 AM 05/02/20 22 9:32 Venous) CDT AM CDT Josette Hannon M.D. LAB HLA ORDERABLES Performing Organization Address City/State/[facility] Code Phon e Number [facility] - [address] [place], [place] [address] [facility] [place] [place] [address] Laboratories-[facility] [address] [facility] HLA Class I SAB Antibody Screen (05/02/2022 8:08 AM CDT) [facility] Signature Class I SAB Negative Not Applicable 05/04/2022 DBB8 Overall Result 10:07 AM CDT SAB A NONE 05/04/2022 DBB8 Specificity 10:07 AM CDT SAB B NONE 05/04/2022 DBB8 Specificity 10:07 AM CDT SAB C NONE 05/04/2022 DBB8 Specificity 10:07 AM CDT Comment: ----ADDITIONAL INFORMATION---- Method: Luminex Flow Cytometry CLIA: [id number] ??CLIA Premix Concrete Batcher: LEON STRATTON MD,PhD Specimen Anatomical Collection Method Collection Time Receive d Time (Source) Location / / Volume Laterality Blood (Blood, 05/02/2022 8:08 AM 05/02/20 22 9:32 Venous) CDT AM CDT Josette Hannon M.D. LAB HLA ORDERABLES Performing Organization Address [facility]/ZIP [facility] Phon e Number [facility] - [address] [place], [place] [address] [facility] [place] [address] [place] [address] [facility]-[address] Jarvis/Kid 5cc Storage, B (05/02/2022 8:08 AM CDT) Analysis Performed At Patho logist Time Signature Storage, Red Collected DEFAULT 05/02/2022 HSS 8:08 AM CDT Storage, ACD Collected DEFAULT 05/02/2022 HSS 8:08 AM CDT Specimen Anatomical Collection Method Collection Time Receive d Time (Source) Location / / Volume Laterality Blood (Blood, 05/02/2022 8:08 AM 05/02/20 8:08 Venous) CDT AM CDT Narrative [facility] - [facility] - 05/02/2022 8:08 AM CDT Specimen Information: Specimen ID: [id number] Specimen Type: Blood Specimen Collection Start Date: 2 ??8:08 AM Specimen Received Date: 05/02/2022 ??8:08 AM Specimen ID: [id number] Specimen Collection Start Date: 2 ??8:08 AM Specimen Received Date: 05/02/2022 ??8:08 AM Josette Hannon M.D. LAB BLOOD ADD-ON Performing Organization Address City/[facility]/ZIP Code Phon e Number [facility] - [address] [place] [address] [facility] [address] Laboratories-[address] Hemoglobin A1c (05/02/2022 8:08 AM CDT) P athologist Signature Hemoglobin A1c, 5.6 4.0 - 5.6 05/02/2022 DTL B % 9:47 AM CDT Specimen Anatomical Collection Method Collection Time Receive d Time (Source) Location / / Volume Laterality Blood (Blood, 05/02/2022 8:08 AM 05/02/20 22 8:34 Venous) CDT AM CDT Josette Hannon M.D. LAB BLOOD ADD-ON Performing Organization Address City/[facility]/ZIP Code Phon e Number [facility] - [address] Troponin T, 5th Generation (05/02/2022 8:08 AM CDT) athologist Signature Troponin T, 5th 12 <=15 ng/L 05/02/2022 DT gen 9:09 AM CDT Specimen Anatomical Collection Method Collection Time Receive d Time (Source) Location / / Volume Laterality Blood (Blood, 05/02/2022 8:08 AM 05/02/20 8:45 Venous) CDT AM CDT Josette Hannon M.D. LAB BLOOD ADD-ON Performing Organization Address City/[facility] Phon e Number [facility] - [id number] [place] [address] (ABNORMAL) Lipid Panel (05/02/2022 8:08 AM CDT) athologist Signature Triglycerides 117 mg/dL 05/02/2022 DTL 9:05 AM CDT Comment: ----REFERENCE VALUE---- Normal: <150 mg/dL Borderline High: 150-199 mg/dL High: 200-499 mg/dL Very High: > or =500 mg/dL Cholesterol, Total 172 mg/dL 05/02/2022 9:05 AM CD T DTL Comment: ----REFERENCE VALUE---- Desirable: < 200 mg/dL Borderline High: 200 - 239 mg/dL High: > or = 240 mg/dL Cholesterol, LDL, Calculated 114 mg/dL 05/02/2022 9:05 AM CDT DTL Comment: ----REFERENCE VALUE---- Desirable: <100 mg/dL Above Desirable: 100-129 mg/dL Borderline High: 130-159 mg/dL High: 160-189 mg/dL Very High: >=190 mg/dL ----ADDITIONAL INFORMATION---- LDL cholesterol calculated using the Siddiqui/NIH equation. Cholesterol, HDL, S 37 (L) >=40 mg/dL 05/02/2022 9:05 AM CDT DTL Cholesterol, Non-HDL, Calculated 135 mg/dL 022 9:05 AM CDT DTL Comment: ----REFERENCE VALUE---- Desirable: <130 mg/dL Above Desirable: 130-159 mg/dL Borderline High: 160-189 mg/dL High: 190-219 mg/dL Very High: > or =220 mg/dL Fasting (8 HR or more) Yes 05/02/2022 8:45 A M CDT DTL Specimen Anatomical Collection Method Collection Time Receive d Time (Source) Location / / Volume Laterality Blood (Blood, 05/02/2022 8:08 AM 05/02/20 22 8:45 Venous) CDT AM CDT Josette Hannon M.D. LAB BLOOD ADD-ON Performing Organization Address City/[facility] Phon e Number [facility] [address] [place], [place] [address] [place] [address] Magnesium (05/02/2022 8:08 AM CDT) P athologist Signature Magnesium, S 2.2 1.7 - 2.3 05/02/2022 DTL mg/dL 9:18 AM CDT Specimen Anatomical Collection Method Collection Time Receive d Time (Source) Location / / Volume Laterality Blood (Blood, 05/02/2022 8:08 AM 05/02/20 22 8:48 Venous) CDT AM CDT Josette Hannon M.D. LAB BLOOD ADD-ON Performing Organization Address City/State/[facility] Phon e Number [facility] [address] [place], [place] [address] [place], [place] [address] [address] Phosphorus Inorganic (05/02/2022 8:08 AM CDT) P athologist Signature Phosphorus 2.6 2.5 - 4.5 05/02/2022 DTL (Inorganic), S mg/dL 9:18 AM CDT Specimen Anatomical Collection Method Collection Time Receive d Time (Source) Location / / Volume Laterality Blood (Blood, 05/02/2022 8:08 AM 05/02/20 22 8:48 Venous) CDT AM CDT Josette Hannon M.D. LAB BLOOD ADD-ON Performing Organization Address City/State/ZIP Code Phon e Number [facility] - [address] [place], [place] [address] [facility] [place] [address] Laboratories-[facility] [address] (ABNORMAL) Comprehensive Metabolic Panel (05/02/2022 8:08 AM CDT) Analysis Performed At Patho logist Time Signature Potassium, S 4.2 3.6 - 5.2 05/02/2022 DTL mmol/L 9:05 AM CDT Sodium, S 140 135 - 145 05/02/2022 DTL mmol/L 9:05 AM CDT Chloride, S 104 98 - 107 05/02/2022 DTL mmol/L 9:05 AM CDT Bicarbonate, S 24 22 - 29 05/02/2022 DTL mmol/L 9:05 AM CDT Anion Gap 12 7 - 15 05/02/2022 DTL 9:05 AM CDT BUN (Blood Urea 22 8 - 24 05/02/2022 DTL Nitrogen), S mg/dL 9:05 AM CDT Creatinine 1.58 (H) 0.74 - 05/02/2022 DTL 1.35 mg/dL 9:05 AM CDT eGFR-Non 49 (L) >=60 05/02/2022 DTL Black/ mL/min/BSA 9:05 AM CDT Greenlandic Comment: ----ADDITIONAL INFORMATION---- Estimated GFR calculated using the 2009 CKD_EPI creatinine equation. eGFR-Black/ 56 (L) >=60 mL/min/BSA 2021 9:05 AM CDT DTL Comment: ----ADDITIONAL INFORMATION---- Estimated GFR calculated using the 2009 CKD_EPI creatinine equation. Calcium, Total, S 9.2 8.6 - 10.0 mg/dL 05/02/2022 9:05 AM CDT DTL Glucose, S 123 70 - 140 mg/dL 05/02/2022 9:05 AM CDT D TL Protein, Total, S 6.7 6.3 - 7.9 g/dL 05/02/2022 9:05 A M CDT DTL Albumin, S 4.7 3.5 - 5.0 g/dL 05/02/2022 9:05 AM CDT D TL Aspartate Aminotransferase 19 8 - 48 U/L 05/02/2022 9 :05 AM CDT DTL (AST), S Alkaline Phosphatase, S 31 (L) 40 - 129 U/L 05/02/2022 9: 05 AM CDT DTL Alanine Aminotransferase 14 7 - 55 U/L 05/02/2022 9:0 5 AM CDT DTL (ALT), S Bilirubin, Total, S 0.7 <=1.2 mg/dL 05/02/2022 9:05 AM CDT DTL Specimen Anatomical Collection Method Collection Time Receive d Time (Source) Location / / Volume Laterality Blood (Blood, 05/02/2022 8:08 AM 05/02/20 8:45 Venous) CDT AM CDT Josette Hannon M.D. LAB BLOOD ADD-ON Performing Organization Address City/State/ZIP Code Phon e Number [facility] - [address] [place] [address] [facility] [place] [address] Laboratories-[facility] [address] [facility] (ABNORMAL) CBC with Differential, Blood (05/02/2022 8:08 AM CDT) [facility] Method Time Signature Hemoglobin 14.9 13.2 - 05/02/2022 DTL 16.6 g/dL 8:49 AM CDT Hematocrit 45.1 38.3 - 05/02/2022 DTL 48.6 % 8:49 AM CDT Erythrocytes 4.61 4.35 - 05/02/2022 DTL 5.65 8:49 AM CDT x10(12)/L MCV 97.8 78.2 - 05/02/2022 DTL 97.9 fL 8:49 AM CDT RBC Distrib Width 12.2 11.8 - 05/02/2022 DTL 14.5 % 8:49 AM CDT Platelet Count 172 135 - 317 05/02/2022 DTL x10(9)/L 8:49 AM CDT Leukocytes 3.6 3.4 - 9.6 05/02/2022 DTL x10(9)/L 8:49 AM CDT Neutrophils 2.39 1.56 - 05/02/2022 DTL 6.45 8:49 AM CDT x10(9)/L Lymphocytes 0.85 (L) 0.95 - 05/02/2022 DTL 3.07 8:49 AM CDT x10(9)/L Monocytes 0.35 0.26 - 05/02/2022 DTL 0.81 8:49 AM CDT x10(9)/L Eosinophils <0.03 0.03 - 05/02/2022 DTL 0.48 8:49 AM CDT x10(9)/L Basophils <0.03 0.01 - 05/02/2022 DTL 0.08 8:49 AM CDT x10(9)/L Specimen Anatomical Collection Method Collection Time Receive d Time (Source) Location / / Volume Laterality Blood (Blood, 05/02/2022 8:08 AM 05/02/20 22 8:34 Venous) CDT AM CDT Josette Hannon M.D. LAB BLOOD ADD-ON Performing Organization Address City/State/[facility] Code Phon e Number [facility] - [address] [place], [place] [address] [facility] [place] [address] Laboratories-[facility] [address] Mycophenolic Acid (05/02/2022 8:08 AM CDT) athologist Signature Mycophenolic Acid 1.9 1.0 - 3.5 05/02/2022 SDSC mcg/mL 1:02 PM CDT MPA Glucuronide 39 35 - 100 05/02/2022 SDSC mcg/mL 1:02 PM CDT Comment: ----ADDITIONAL INFORMATION---- Target steady-state trough concentration s vary depending on the type of transplant, concomitant immunosuppressio n, clinical/institutional protocols, and time post-transplant. Results should be interpreted in conjunction with this clinical information and any physic al signs/symptoms of rejection/toxicity. Testing performed by Liquid Chromatograp hy-Tandem Mass Spectrometry (LC-MS/MS). This test was developed and its performa nce characteristics determined by [facility] in a manner consistent with CLIA requirements. This test has not been cleared or approved by the U.[place]. Marg[place] d and Drug Administration. Specimen Anatomical Collection Method Collection Time Receive d Time (Source) Location / / Volume Laterality Blood (Blood, 05/02/2022 8:08 AM 05/02/20 22 Venous) CDT 10:30 AM CDT Josette Hannon M.D. LAB BLOOD NON ADD-ON Performing Organization Address City/[facility]/ZIP Code Phon e Number [facility] [address] [place], [place] [address] [facility] [place] [address] Laboratory Medicine and Pathology [address] [place] APTT (Activated Partial Thromboplastin Time) (05/02/2022 8:07 AM CDT) P athologist Signature Activated 30 25 - 37 sec 05/02/2022 DTL Partial 9:12 AM CDT Thrombopl Time, P Specimen Anatomical Collection Method Collection Time Receive d Time (Source) Location / / Volume Laterality Blood (Blood, 05/02/2022 8:07 AM 05/02/20 22 8:34 Venous) CDT AM CDT Josette Hannon M.D. LAB BLOOD ADD-ON Performing Organization Address City/[facility]/ZIP Code Phon e Number [facility] - [address] [place] [address] [facility] [place] [address] Laboratories-[facility] 200 [facility] Prothrombin Time (PT) (05/02/2022 8:07 AM CDT) P athologist Signature Prothrombin 10.9 9.4 - 12.5 05/02/2022 DTL Time, P sec 9:12 AM CDT INR 1.0 0.9 - 1.1 05/02/2022 DTL 9:12 AM CDT Comment: ----ADDITIONAL INFORMATION---- Standard intensity warfarin therapeutic range: 2.0 to 3.0 ?? High intensity warfarin therapeutic rang e: 2.5 to 3.5 Specimen Anatomical Collection Method Collection Time Receive d Time (Source) Location / / Volume Laterality Blood (Blood, 05/02/2022 8:07 AM 05/02/20 22 8:34 Venous) CDT AM CDT Josette Hannon M.D. LAB BLOOD ADD-ON Performing Organization Address City/[facility]/ZIP Code Phon e Number [facility] - [address] [place], [place] [address] [facility] [place] [address] Laboratories-[facility] [address] [facility] Tacrolimus, B (05/02/2022 8:06 AM CDT) P athologist Signature Tacrolimus, B 8.2 5.0-15.0 05/02/2022 [facility] (Trough) 12:33 PM CDT ng/mL Comment: ----ADDITIONAL INFORMATION---- Target steady-state trough concentration s vary depending on the type of transplant, concomitant immunosuppressio n, clinical/institutional protocols, and time post-transplant. Results should be interpreted in conjunction with this clinical information and any physic al signs/symptoms of rejection/toxicity. Testing performed by Liquid Chromatograp hy-Tandem Mass Spectrometry (LC-MS/MS). This test was developed and its performa nce characteristics determined by [facility] in a manner consistent with CLIA requirements. This test has not been cleared or approved by the [place] Marg[place] d and Drug Administration. Specimen Anatomical Collection Method Collection Time Receive d Time (Source) Location / / Volume Laterality Blood (Blood, 05/02/2022 8:06 AM 05/02/20 9:50 Venous) CDT AM CDT Josette Hannon M.D. LAB BLOOD NON ADD-ON Performing Organization Address City/State/ZIP Code Phon e Number [facility] [address] [place], [place] [address] SUPPORT CENTER [facility] [place] [address] Laboratory Medicine and Pathology [address] 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 [place], [place] [address] documented as of this encounter
--- OUTSIDE RECORDS SUMMARY | 2022-08-23 09:58 | XMS_ITS | Encounter Summary ---
:1965 Author Organization [facility] Address [address] [place] [address] Care Team Providers Name Role Phone Elsewhere, Pcp Primary Care Provider Unavailable Reason for Referral Outpatient (Routine) - Closed Specialty Diagnoses / Procedures Referred By Contact Refer red To Contact Diagnoses Transplant Renal (HCC) Josette Hannon M.D. [facility] Procedures Short renal clearance: Iothalamate (Renal Studies Unit) [address] [place] [address] Referral ID Status Reason Start Date Expiration Date Visits Requ ested Visits Authorized [id number] Closed 03/06/2022 03/06/2023 1 1 Reason for Visit Outpatient (Routine) - Closed Specialty Diagnoses / Procedures Referred By Contact Refer red To Contact Diagnoses Transplant Renal (HCC) Josette Hannon M.D. [facility] Procedures Short renal clearance: Iothalamate (Renal Studies Unit) [address] [place], [place] [address] Referral ID Status Reason Start Date Expiration Date Visits Requ ested Visits Authorized [id number] Closed 03/06/2022 03/06/2023 1 1 Encounter Details Date Type Department Care Team Description 05/02/2022 Hospital Encounter Department of Arnulfo Hannon Renal Laboratory Medicine Josette ([facility] [address] [place] [phone] [address] [facility] [phone] [place], [place] (Work) [phone] Social History Tobacco Use Types Packs/Day Years Used Date Smoking Tobacco: Never Smokeless Tobacco: Never Alcohol Use Standard Drinks/Week Comments Yes 4 (1 standard drink = 0.6 oz pure alcoho l) Alcohol Habits Answer Date Recorded How often do you have a drink containing 4 or more times a w stillaguamish 05/12/2021 alcohol? How many drinks containing alcohol [...] How often do you attend congregational or tenriism Never 05/12/2021 services? Do you belong to [...] place to sleep or slept in a penitentiary (including now)? Education Answer Date Recorded What is the highest level of school Master's degree (e.g., M Shonna, MS, 05/08/2019 you have completed or the highest Young, MEd, TEST BAKER, ERNIE) degree you have received? Sex Assigned at Date Recorded Male 05/27/2018 8:52 AM CDT documented as of this encounter Last Filed Vital Signs Vital Sign Reading Time Taken Comments Blood Pressure - - Pulse - - Temperature - - Respiratory Rate - - Oxygen Saturation - - Inhaled Oxygen Concentration - - Weight 67.6 kg (149 lb 0.5 oz) 05/02/2022 11:48 AM CDT Height 184.8 cm (6' 0.76) 05/02/2022 11:48 AM CDT Body Mass Index 19.79 05/02/2022 11:48 AM CDT documented in this encounter Medications at Time of Discharge [...] Type Priority Associated Diagnoses Order S chedule Short renal clearance: Procedures Routine Transplant Renal O nce for 1 Occurrences Iothalamate (Renal (HCC) starting 05/02/2022 Studies Unit) until 05/02/20 22 documented as of this encounter Procedures Procedure Name Priority Date/Time Associated Comments Diagnosis IOTHALAMATE, Routine 05/02/2022 11:54 AM Results for this GLOMERULAR CDT procedure are i n FILTRATION RATE, P the resul ts section. documented in this encounter Results (ABNORMAL) Iothalamate, Glomerular Filtration Rate (05/02/2022 11:54 AM CDT) P athologist Signature Uncorrctd 62 mL/min 05/02/2022 VAN Iothal Cl 4:09 PM CDT Corrctd Iothal 57 (L) 70 - 124 05/02/2022 VAN Cl mL/min/BSA 4:09 PM CDT Comment: ----ADDITIONAL INFORMATION---- This test was developed and its performa nce characteristics determined by [facility] in a manner consistent with CLIA requirements. This test has not been cleared or approved by the U.[place]. Margar[place] d and Drug Administration. Specimen Anatomical Collection Method Collection Time Receive d Time (Source) Location / / Volume Laterality Varies (Blood, 05/02/2022 11:54 2 1:51 Venous) AM CDT PM CDT Narrative [facility] - 05/02/2022 4:09 PM CDT Specimen Information: Specimen ID: [id number] Specimen Type: Varies Specimen Collection Start Date: 2 11:54 AM Specimen Received Date: 05/02/2022 ??1:51 PM Specimen ID: [id number] Specimen Type: Varies Specimen Collection Start Date: 2 12:53 PM Specimen Received Date: 05/02/2022 ??1:51 PM Specimen ID: [id number] Specimen Type: Varies Specimen Collection Start Date: 2 ??1:40 PM Specimen Received Date: 05/02/2022 ??1:51 PM Specimen ID: [id number] Specimen Type: Varies Specimen Collection Start Date: 2 12:56 PM Specimen Received Date: 05/02/2022 ??1:51 PM Specimen ID: [id number] Specimen Type: Varies Specimen Collection Start Date: 2 ??1:43 PM Specimen Received Date: 05/02/2022 ??1:51 PM Josette Hannon M.D. LAB BLOOD NON ADD-ON Performing Organization Address City/State/ZIP Code Phon e Number [facility] - [address] [place], [place] [address] [place] [address] [facility] [address] documented in this encounter Visit Diagnoses Diagnosis Transplant Renal (HCC) documented in this encounter Administered Medications Inactive Administered Medications - up to 3 most recent administrations Medication Order MAR Action Action Date Dose Rate Site iothalamate meglumine 30 % Given 05/02/2022 11:57 AM 1 mL Right Outer Thigh injection 1 mL (CONRAY 30) CDT 1 mL, subcutaneous, Once, On Sun05/02/22 at 1200, For 1 dose documented in this encounter Care Teams Material Specialist Relationship Specialty Start Date End Date Elsewhere, Pcp PCP - General Internal Medicine 05/02/22 [facility] Laboratory Medicine [place] [address] [address] [place] [address] documented as of this encounter
--- OUTSIDE RECORDS SUMMARY | 2022-08-23 09:58 | XMS_ITS | Encounter Summary ---
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 How many drinks containing alcohol [...] How often do you attend orthodoxy or faith Never 05/12/2021 services? Do you belong to [...] place to sleep or slept in a nursing home (including now)? Education Answer Date Recorded What is the highest level of school Master's degree (e.g., M Shonna, MS, 05/08/2019 you have completed or the highest Young, MEd, RESEARCH TEST ENGINE OPERATOR, ERNIE) degree you have received? Sex Assigned at Date Recorded Male 05/27/2018 8:52 AM CDT documented as of this encounter Plan of Treatment Not on filedocumented as of this encounter Results Mycophenolic Acid (05/02/2022 8:08 AM CDT) athologist [...] and its performa nce characteristics determined by [facility] in a manner consistent with CLIA [...] Address City/State/ZIP Code Phon e Number [facility] [address] [place], [place] [address] SUPPORT C[address] [facility] [place] [address] Laboratory Medicine and Pathology [address] [place] Tacrolimus, B (05/02/2022 8:06 AM CDT) athologist Signature Tacrolimus, B 8.2 5.0-15.0 05/02/2022 [facility] (Trough) 12:33 PM CDT ng/mL Comment: ----ADDITIONAL [...] and its performa nce characteristics determined by [facility] in a manner consistent with CLIA requirements. This test has not been cleared or approved by the [place]. Margar[place] d and Drug Administration. Specimen Anatomical Collection Method Collection Time Receive d Time (Source) Location / / Volume Laterality Blood (Blood, 05/02/2022 8:06 AM 05/02/20 22 9:50 Venous) CDT AM CDT Josette Hannon M.D. LAB BLOOD NON ADD-ON Performing Organization Address City/State/ZIP Code Phon e Number [facility] [address] [place] [address] SUPPORT CENTER [facility] [place] [address] Laboratory Medicine and Pathology [address] [place] documented in this encounter Visit Diagnoses Diagnosis Transplant Renal (HCC) - Primary High Risk Medication Immunodeficiency Due To Drugs (HCC) documented in this encounter Care Teams Medical Reimbursement Manager Relationship Specialty Start Date End Date [facility] of Laboratory Medicine [place] [address] [place], [place] [address] documented as of this encounter
--- OUTSIDE RECORDS SUMMARY | 2022-08-23 09:59 | XMS_ITS | Encounter Summary ---
:1965 Author Organization [facility] Address [address] [place] [address] Care Team Providers Name Role Phone Unavailable Primary Care Provider Unavailable Reason for Visit Reason Comments Tacrolimus Adjustment Protocol Encounter Details Date Type Department Care Team Description 11/09/2021 Clinical Ty Agiurre [facility] Communication Center for Regla M, Adjustment Transplantation and Hermilo CCTN Protocol Clinical Regeneration [phone] in [facility] [address] [place] [address] Social History Tobacco Use Types Packs/Day Years Used Date Smoking Tobacco: Never Smokeless Tobacco: Never Alcohol Use Standard Drinks/Week Comments Yes 6 (1 standard drink = 0.6 oz pure alcoho l) Alcohol Habits Answer Date Recorded How often do you have a drink containing 4 or more times a w [place] 05/12/2021 alcohol? How many drinks containing alcohol [...] 05/12/2021 relatives? How often do you attend mandaen or mandaen Never 05/12/2021 services? Do you belong to any clubs or organizations such No 05/12/2021 as mandaen groups, unions, fraternal or athletic groups, or [...] place to sleep or slept in a care home (including now)? Education Answer Date Recorded What is the highest level of school Master's degree (e.g., M Shonna, MS, 05/08/2019 you have completed or the highest Young, MEd, BOAT HOIST OPERATOR, ERNIE) degree you have received? Sex Assigned at Date Recorded Male 05/27/2018 8:52 AM CDT documented as of this encounter Miscellaneous Notes Telephone Encounter - Regla Perez RMartha. - 11/09/2021 10:58 AM CLAY ARTIST Tacrolimus level within goal range of 6-8, per Tacrolimus Adjustment Protocol no dose change recommended. Current Tacrolimus dose 2 mg twice a day . Other lab results received and reviewed, stable trends, continue monitoring every 2 months. ARTIST documented in this encounter Plan of Treatment Not on filedocumented as of this encounter Visit Diagnoses Not on filedocumented in this encounter Care Teams Client Application Support Specialist Relationship Specialty Start Date End Date [facility] Laboratory Medicine [place] [address] [place], [place] [address] documented as of this encounter
--- OUTSIDE RECORDS SUMMARY | 2022-08-23 09:59 | XMS_ITS | Encounter Summary ---
:1965 Author Organization [facility] Address [address] [place] [address] Care Team Providers Name Role Phone Unavailable Primary Care Provider Unavailable Encounter Details Date Type Department Care Team Description 11/23/2021 Orders Only Joey Gordillo Bryce, Larry [facility] Renal Center for M.D. ([facility]) Transplantation and [address] [place] [address] in [place], [place] [address] [place] [address] [place] [address] (Work) [phone] Social History Tobacco Use Types Packs/Day Years Used Date Smoking Tobacco: Never Smokeless Tobacco: Never Alcohol Use Standard Drinks/Week Comments Yes 6 (1 standard drink = 0.6 oz pure alcoho l) Alcohol Habits Answer Date Recorded How often do you have a drink containing 4 or more times a w hamilton 05/12/2021 alcohol? How many drinks containing alcohol [...] How often do you attend moravian or spiritism Never 05/12/2021 services? Do you [...] have completed or the highest Young, MEd, LABELS MOLDER, ERNIE) degree you have received? Sex Assigned at Date Recorded Male 05/27/2018 8:52 AM CDT documented as of this encounter Plan of Treatment Not on filedocumented as of this encounter Results Tacrolimus, B (02/01/2022 8:50 AM CDT) athologist Signature Tacrolimus, B 6.3 5.0-15.0 02/05/2022 [facility] (Trough) 3:57 PM CDT ng/mL Comment: ----ADDITIONAL INFORMATION---- Target [...] performa nce characteristics determined by [facility] in a manner consistent with CLIA requirements. This test has not been cleared or approved by the [place]. Marg[place] d and Drug Administration. Specimen Anatomical Collection Method Collection Time Receive d Time (Source) Location / / Volume Laterality Blood (Blood, 02/01/2022 8:50 AM 02/06/20 22 1:02 Venous) CDT PM CDT Resulting Agency Comment Mailed In Specimen Howard Wu M.D. LAB BLOOD NON ADD-ON Performing Organization Address City/State/ZIP Code Phon e Number [facility] [address] [place], [place] [address] SUPPORT CENTER [facility] [place] [address] Laboratory Medicine and Pathology [address] [place] documented in this encounter Visit Diagnoses Diagnosis Transplant Renal (HCC) documented in this encounter Care Teams Machine Heel Sprayer Relationship Specialty Start Date End Date [facility] of Laboratory Medicine [place] [address] [place], [place] [address] documented as of this encounter
--- OUTSIDE RECORDS SUMMARY | 2022-08-23 09:59 | XMS_ITS | Encounter Summary ---
:1965 Author Organization [facility] Address [address] [place] [address] Care Team Providers Name Role Phone Unavailable Primary Care Provider Unavailable Reason for Referral Outpatient (Routine) - Closed Specialty Diagnoses / Procedures Referred By Contact Refer red To Contact Endocrinology Diagnoses Transplant Renal (HCC) Hyperglycemia Josette Hannon M.D. [facility] Procedures Endocrinology - Diabetes eConsult [address] [place] [phone] Referral ID Status Reason Start Date Expiration Date Visits Requ ested Visits Authorized [id number] Closed 11/08/2021 11/08/2022 1 1 UREMENT OPERATOR Encounter Details Date Type Department Care Team Description 11/08/2021 Orders Only Joey Castaneda, Transp lant Renal (HCC) (Primary Dx); [place] Transplantation and Joel Clinical Regeneration in [address] [place], [place] [address] [email or web address] [phone] [place] [address] Social History Tobacco Use Types Packs/Day Years Used Date Smoking Tobacco: Never Smokeless Tobacco: Never Alcohol Use Standard Drinks/Week Comments Yes 6 (1 standard drink = 0.6 oz pure alcoho l) Alcohol Habits Answer Date Recorded How often do you have a drink containing 4 or more times a w [place] 05/12/2021 alcohol? How many drinks containing alcohol [...] 05/12/2021 relatives? How often do you attend anabaptism or samaritan Never 05/12/2021 services? Do you belong to any clubs or organizations such No 05/12/2021 as anabaptism groups, unions, fraternal or athletic groups, or [...] have completed or the highest Young, MEd, CERTIFIED NURSING ASSISTANT INSTRUCTOR, ERNIE) degree you have received? Sex Assigned at Date Recorded Male 05/27/2018 8:52 AM CDT documented as of this encounter Plan of Treatment Not on filedocumented as of this encounter Visit Diagnoses Diagnosis Transplant Renal (HCC) - Primary Hyperglycemia documented in this encounter Care Teams Fire Chief'S Aide Relationship Specialty Start Date End Date [facility] Laboratory Medicine [place] [address] [place], [place] [address] documented as of this encounter
--- OUTSIDE RECORDS SUMMARY | 2022-08-23 09:59 | XMS_ITS | Encounter Summary ---
:1965 Author Organization [facility] Address [address] [place] [address] Care Team Providers Name Role Phone Unavailable Primary Care Provider Unavailable Encounter Details Date Type Department Care Team Description 08/25/2021 Orders Only Joey Gordillo Bryce, Larry Staton [facility] [place] Renal Center for M.D. ([facility]) Transplantation and [address] [place] [address] in [place], [place] [address] [place] [address] [place] [address] (Work) [phone] Social History Tobacco Use Types Packs/Day Years Used Date Smoking Tobacco: Never Smokeless Tobacco: Never Alcohol Use Standard Drinks/Week Comments Yes 6 (1 standard drink = 0.6 oz pure alcoho l) Alcohol Habits Answer Date Recorded How often do you have a drink containing 4 or more times a w squaxin 05/12/2021 alcohol? How many drinks containing alcohol [...] 05/12/2021 relatives? How often do you attend christianity or sabianism Never 05/12/2021 services? Do you belong to any clubs or organizations such No 05/12/2021 as christianity groups, unions, fraternal or athletic groups, or [...] have completed or the highest Young, MEd, SECURITY SYSTEMS TECHNICIAN, ERNIE) degree you have received? Sex Assigned at Date Recorded Male 05/27/2018 8:52 AM CDT documented as of this encounter Plan of Treatment Not on filedocumented as of this encounter Results Tacrolimus, B (11/07/2021 8:20 AM DESIGN LEAD) athologist Signature Tacrolimus, B 5.8 5.0-15.0 11/09/2021 [facility] (Trough) 10:27 AM DESIGN LEAD ng/mL Comment: ----ADDITIONAL INFORMATION---- Target steady-state trough concentration s vary depending on the type of transplant, concomitant immunosuppressio n, clinical/institutional protocols, and time post-transplant. Results should be interpreted in conjunction with this clinical information and any physic al signs/symptoms of rejection/toxicity. Testing performed by Liquid Chromatograp hy-Tandem Mass Spectrometry (LC-MS/MS). This test was developed and its performa nce characteristics determined by [facility] in a manner consistent with CLIA requirements. This test has not been cleared or approved by the [place] d and Drug Administration. Specimen Anatomical Collection Method Collection Time Receive d Time (Source) Location / / Volume Laterality Blood (Blood, 11/07/2021 8:20 AM 11/08/19 22 3:31 Venous) DESIGN LEAD PM DESIGN LEAD Howard Wu M.D. LAB BLOOD NON ADD-ON Performing Organization Address City/State/ZIP Code Phon e Number [facility] [address] [place], [place] [address] SUPPORT CENTER [facility] [place] [address] Laboratory Medicine and Pathology [address] [place] documented in this encounter Visit Diagnoses Diagnosis Transplant Renal (HCC) documented in this encounter Care Teams Sueding Machine Tender Relationship Specialty Start Date End Date [facility] of Laboratory Medicine [place] [address] [place], [place] [address] documented as of this encounter
--- OUTSIDE RECORDS SUMMARY | 2022-08-23 09:59 | XMS_ITS | Encounter Summary ---
:1965 Author Organization [facility] Address [address] [place] [address] Care Team Providers Name Role Phone Unavailable Primary Care Provider Unavailable Reason for Visit Outpatient (Routine) - Closed Specialty Diagnoses / Procedures Referred By Contact Refer red To Contact Endocrinology Diagnoses Transplant Renal (HCC) Hyperglycemia Josette Hannon M.D. [facility] Procedures Endocrinology - Diabetes eConsult [address] [place], [place] [phone] Referral ID Status Reason Start Date Expiration Date Visits Requ ested Visits Authorized [id number] Closed 11/08/2021 11/08/2022 1 1 Encounter Details Date Type Department Care Team Description 11/28/2021 Internal Division of Elio Churchill, Nelson ellis (HCC); E-Consult Endocrinology in [place]. [place], [place] [address] [facility] [address] [place] [phone] Social History Tobacco Use Types Packs/Day Years [...] 05/12/2021 relatives? How often do you attend sabianism or anabaptist Never 05/12/2021 services? Do you belong to any clubs or organizations such No 05/12/2021 as sabianism groups, unions, fraternal or athletic groups, or [...] completed or the highest Young, MEd, SUPERVISOR MOTOR VEHICLE ASSEMBLY, ERNIE) degree you have received? Sex Assigned at Date Recorded Male 05/27/2018 8:52 AM CDT documented as of this encounter Consult Notes Elio Churchill M.D. - 11/28/2021 4:30 PM CST Images from the original note were not included. ENDOCRINOLOGY, METABOLISM, DIABETES AND NUTRITION Endocrinology/Diabetes eConsult Note REFERRAL Josette Hannon M.D. [address] [place] [phone] CHIEF COMPLAINT / REASON FOR VISIT Tyler Morocho is a 56 y.o. 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 Currently is ontacrolimus, mycophenolate mofetil, and prednisone (5 mg per day). Plasma glucose on November 07, 2021 was 128 mg/dL. His hemoglobin A1c on that day was 5.5%. Hemoglobin at 14.8 gram/deciliter was not significantly different from April 2021 at 15.1 gram/deciliter. I do not have access to his recent lab reports in Care Everywhere. He is apparently not on any antidiabetic therapy. He underwent a continuous glucose monitoring between October 07 through November 03, 2021. CGM was active for 14 days. 93% of his glucose was between 70 to 180 mg/dL, 7% 181 to 250, none above 250 or below 70 mg/dL. I do not have concomitant dietary input. However, it would appear that on occasions when he consumes significant amount of carbohydrates he has significant postprandial glucose concentration, going above 200 mg/dL. Specifically, note the 2 peaks on October 27, and about 1 peak most other days. ASSESSMENT / PLAN 1. Transplant Renal (HCC) 2. Hyperglycemia If a plasma glucose of 128 mg/dL was fasting he would be expected to have a hemoglobin A1c above 6% (GMI by CGM was 6.4%). Both plasma glucose concentrations and hemoglobin A1c measurements seem to have worsened over time (see below), however there is some discrepancy between hemoglobin A1c and plasma glucose. If his glucose concentrations were fasting, he has a diagnosis of diabetes mellitus. I am not sure that he needs to be on pharmacotherapy for glycemic control per se, though metformin therapy could be considered and discussed with the patient. On the other hand, meeting with one of our dietitians willserve him well. Using diabetes medicines for other benefits may be discussed with him. (11/07/21) (08/16/21) (04/20/21) (12/28/20) (09/01/20) (01/27/20) (10/15/19) EXT Glucose 128 146 133 148 144 160 156 HbA1c: Plasma glucose: SR documented in this encounter Plan of Treatment Not on filedocumented as of this encounter Visit Diagnoses Diagnosis Transplant Renal (HCC) Hyperglycemia documented in this encounter Care Teams Padder Relationship Specialty Start Date End Date [facility] of Laboratory Medicine [place] [address] [place], [place] [address] documented as of this encounter
--- OUTSIDE RECORDS SUMMARY | 2022-08-23 09:59 | XMS_ITS | Encounter Summary ---
:1965 Author Organization [facility] Address [address] [place] [address] Care Team Providers Name Role Phone Unavailable Primary Care Provider Unavailable Reason for Visit Reason Comments Tacrolimus Adjustment Protocol Encounter Details Date Type Department Care Team Description 02/06/2022 Clinical [place] Communication Center for Zabrina J, Adjustment Transplantation and R.N., C.C.T. C. Protocol Clinical Regeneration [address] [facility] in [facility] [address] [address] [facility] [phone] [place], [place] (Work) [phone] Social History Tobacco Use Types Packs/Day Years Used Date Smoking Tobacco: Never Smokeless Tobacco: Never Alcohol Use Standard Drinks/Week Comments Yes 6 (1 standard drink = 0.6 oz pure alcoho l) Alcohol Habits Answer Date Recorded How often do you have a drink containing 4 or more times a w [place] 05/12/2021 alcohol? How many drinks containing alcohol [...] 05/12/2021 relatives? How often do you attend episcopalian or sikh Never 05/12/2021 services? Do you belong to any clubs or organizations such No 05/12/2021 as episcopalian groups, unions, fraternal or athletic groups, or [...] place to sleep or slept in a correction (including now)? Education Answer Date Recorded What is the highest level of school Master's degree (e.g., M Shonna, MS, 05/08/2019 you have completed or the highest Young, MEd, STOCK SHAPER, ERNIE) degree you have received? Sex Assigned at Date Recorded Male 05/27/2018 8:52 AM CDT documented as of this encounter Miscellaneous Notes Telephone Encounter - Zabrina Marquez R.N., C.C.T.C. - 02/06/2022 7:36 AM CDT Tacrolimus level within goal range of 6-8, per Tacrolimus Adjustment Protocol no dose change recommended. Current Tacrolimus dose 2 mg twice a day . Other lab results received and reviewed, stable trends, continue monitoring every 2 months. documented in this encounter Plan of Treatment Not on filedocumented as of this encounter Visit Diagnoses Not on filedocumented in this encounter Care Teams Complex Care Nurse Practitioner Relationship Specialty Start Date End Date [facility] of Laboratory Medicine [place] [address] [place], [place] [address] documented as of this encounter
--- OUTSIDE RECORDS SUMMARY | 2022-08-23 09:59 | XMS_ITS | Encounter Summary ---
:1965 Author Organization [facility] Address [address] [place] [address] Care Team Providers Name Role Phone Unavailable Primary Care Provider Unavailable Reason for Visit Reason Comments External Lab Entry 11/07/2021 Encounter Details Date Type Department Care Team Description 11/08/2021 Clinical Joey Gordillo Transplant, Office Machines Sales Representative al Lab Entry Communication Center for Coordinator, (11/07/2021) Transplantation and R.N. Clinical Regeneration in [facility] [place] [address] [place] [address] Social History Tobacco Use Types Packs/Day Years Used Date Smoking Tobacco: Never Smokeless Tobacco: Never Alcohol Use Standard Drinks/Week Comments Yes 6 (1 standard drink = 0.6 oz pure alcoho l) Alcohol Habits Answer Date Recorded How often do you have a drink containing 4 or more times a w [place] 05/12/2021 alcohol? How many drinks containing alcohol [...] How often do you attend bahai or mandaeism Never 05/12/2021 services? Do you belong to [...] have completed or the highest Young, MEd, OFFICE AUTOMATION TECHNICIAN, ERNIE) degree you have received? Sex Assigned at Date Recorded Male 05/27/2018 8:52 AM CDT documented as of this encounter Plan of Treatment Not on filedocumented as of this encounter Procedures Procedure Name Priority Date/Time Associated Comments Diagnosis EXTP TRANSPLANT Routine 11/07/2021 8:30 AM Result s for this KIDNEY/PANCREAS - PUBLIC RECORDS RESEARCHER procedure are in BLOOD, EXTERNAL LAB the resu lts RESULTS section. documented in this encounter Results Transplant Kidney/Pancreas - Blood, External Lab Results (11/07/2021 8:30 AM PUBLIC RECORDS RESEARCHER) P athologist Signature EXT Glucose 128 EXT Creatinine 1.4 mg/dL EXT Potassium 4.8 Specimen (Source) Anatomical Collection Method Collection Time Re ceived Time Location / / Volume Laterality Blood 11/07/2021 8:30 AM PUBLIC RECORDS RESEARCHER Narrative This result has an attachment that is no t available. Historical Provider LAB BLOOD NON ADD-ON documented in this encounter Visit Diagnoses Not on filedocumented in this encounter Care Teams Nurse Head Relationship Specialty Start Date End Date [facility] of Laboratory Medicine [place] [address] [place], [place] [address] documented as of this encounter
--- OUTSIDE RECORDS SUMMARY | 2022-08-23 09:59 | XMS_ITS | Encounter Summary ---
:1965 Author Organization [facility] Address [address] [place] [address] Care Team Providers Name Role Phone Unavailable Primary Care Provider Unavailable Reason for Visit Reason Comments External Lab Entry 11/07/2021 Encounter Details Date Type Department Care Team Description 11/08/2021 Clinical Joey Gordillo Transplant, Deputy Sheriff Generalist/Bailiff al Lab Entry Communication Center for Coordinator, (11/07/2021) Transplantation and R.N. Clinical Regeneration in [facility] [place] [address] [place] [address] Social History Tobacco Use Types Packs/Day Years Used Date Smoking Tobacco: Never Smokeless Tobacco: Never Alcohol Use Standard Drinks/Week Comments Yes 6 (1 standard drink = 0.6 oz pure alcoho l) Alcohol Habits Answer Date Recorded How often do you have a drink containing 4 or more times a w [place] 05/12/2021 alcohol? How many drinks containing alcohol [...] How often do you attend hoahaoism or protestant Never 05/12/2021 services? Do you [...] have completed or the highest Young, MEd, COMBUSTION ANALYST, ERNIE) degree you have received? Sex Assigned at Date Recorded Male 05/27/2018 8:52 AM CDT documented as of this encounter Plan of Treatment Not on filedocumented as of this encounter Procedures Procedure Name Priority Date/Time Associated Comments Diagnosis EXTP TRANSPLANT Routine 11/07/2021 8:18 AM Result s for this KIDNEY/PANCREAS - BOXING AND PRESSING SUPERVISOR procedure are in BLOOD, EXTERNAL LAB the resu lts RESULTS section. documented in this encounter Results Transplant Kidney/Pancreas - Blood, External Lab Results (11/07/2021 8:18 AM BOXING AND PRESSING SUPERVISOR) P athologist Signature EXT Leukocytes 3.8 EXT Absolute 2.4 Neutrophils EXT Hemoglobin 14.8 EXT Platelet 171 Count Specimen (Source) Anatomical Collection Method Collection Time Re ceived Time Location / / Volume Laterality Blood 11/07/2021 8:18 AM BOXING AND PRESSING SUPERVISOR Narrative This result has an attachment that is no t available. Historical Provider LAB BLOOD NON ADD-ON documented in this encounter Visit Diagnoses Not on filedocumented in this encounter Care Teams Overhauler Relationship Specialty Start Date End Date [facility] of Laboratory Medicine [place] [address] [place], [place] [address] documented as of this encounter
--- OUTSIDE RECORDS SUMMARY | 2022-08-23 09:59 | XMS_ITS | Encounter Summary ---
:1965 Author Organization [facility] Address [address] [place] [address] Care Team Providers Name Role Phone Unavailable Primary Care Provider Unavailable Encounter Details Date Type Department Care Team Description 02/22/2022 Orders Only Joey Gordillo Bryce, Larry [place] [facility] Renal Center for M.D. ([facility]) Transplantation and [address] [place] [address] in [place], [place] [address] [place] [address] [place] [address] (Work) [phone] Social History Tobacco Use Types Packs/Day Years Used Date Smoking Tobacco: Never Smokeless Tobacco: Never Alcohol Use Standard Drinks/Week Comments Yes 6 (1 standard drink = 0.6 oz pure alcoho l) Alcohol Habits Answer Date Recorded How often do you have a drink containing 4 or more times a w [place] 05/12/2021 alcohol? How many drinks containing [...] 05/12/2021 relatives? How often do you attend orthodox or muslim Never 05/12/2021 services? Do you belong to any clubs or organizations such No 05/12/2021 as orthodox groups, unions, fraternal or athletic groups, or [...] completed or the highest Young, MEd, BUSINESS ADMINISTRATOR, ERNIE) degree you have received? Sex Assigned at Date Recorded Male 05/27/2018 8:52 AM CDT documented as of this encounter Plan of Treatment Not on filedocumented as of this encounter Results (ABNORMAL) Tacrolimus, B (05/23/2022 8:15 AM CDT) athologist Signature Tacrolimus, B 4.8 (L) 5.0-15.0 05/24/2022 [facility] (Trough) 4:32 PM CDT ng/mL Comment: ----ADDITIONAL INFORMATION---- Target steady-state trough concentration s vary depending on the type of transplant, concomitant immunosuppressio n, clinical/institutional protocols, and time post-transplant. Results should be interpreted in conjunction with this clinical information and any physic al signs/symptoms of rejection/toxicity. Testing performed by Liquid Chromatograp hy-Tandem Mass Spectrometry (LC-MS/MS). This test was developed and its performa nce characteristics determined by [facility] in a manner consistent with CLIA requirements. This test has not been cleared or approved by the U.S. Margarita d and Drug Administration. Specimen Anatomical Collection Method Collection Time Receive d Time (Source) Location / / Volume Laterality Blood (Blood, 05/23/2022 8:15 AM 05/24/20 22 Venous) CDT 12:58 PM CDT Howard Wu M.D. LAB BLOOD NON ADD-ON Performing Organization Address City/State/ZIP Code Phon e Number [facility] [address] [place], [place] [address] SUPPORT CENTER [facility] [place] [address] Laboratory Medicine and Pathology [address] [place] documented in this encounter Visit Diagnoses Diagnosis Transplant Renal (HCC) documented in this encounter Care Teams Exceptional Needs Teacher Relationship Specialty Start Date End Date [facility] Laboratory Medicine [place] [address] [place], [place] [address] documented as of this encounter
--- OUTSIDE RECORDS SUMMARY | 2022-08-23 09:59 | XMS_ITS | Encounter Summary ---
:1965 Author Organization [facility] Address [address] [place] [address] Care Team Providers Name Role Phone Unavailable Primary Care Provider Unavailable Reason for Visit Reason Comments Med Refill Encounter Details Date Type Department Care Team Description 01/30/2022 Refill Joey Gordillo Lancaster[place] APRN, Med Refill for Transplantation and C.N.P., D.N.P. Clinical Regeneration in [address] [place] [phone] [place] [address] [place] [address] [phone] Social History Tobacco Use Types Packs/Day Years Used Date Smoking Tobacco: Never Smokeless Tobacco: Never Alcohol Use Standard Drinks/Week Comments Yes 6 (1 standard drink = 0.6 oz pure alcoho l) Alcohol Habits Answer Date Recorded How often do you have a drink containing 4 or more times a w [place] 05/12/2021 alcohol? How many drinks containing alcohol [...] How often do you attend muslim or baptism Never 05/12/2021 services? Do you [...] have completed or the highest Young, MEd, WAITER/WAITRESS ECONOMY CLASS, ERNIE) degree you have received? Sex Assigned at Date Recorded Male 05/27/2018 8:52 AM CDT documented as of this encounter Plan of Treatment Not on filedocumented as of this encounter Visit Diagnoses Diagnosis Transplant Renal (HCC) documented in this encounter Care Teams Pediatric Ophthalmologist Relationship Specialty Start Date End Date [facility] of Laboratory Medicine [place] [address] [place], [place] [address] documented as of this encounter
--- OUTSIDE RECORDS SUMMARY | 2022-08-23 09:59 | XMS_ITS | Encounter Summary ---
:1965 Author Organization [facility] Address [address] [place] [address] Care Team Providers Name Role Phone Unavailable Primary Care Provider Unavailable Reason for Visit Reason Comments Med Refill Encounter Details Date Type Department Care Team Description 11/07/2021 Refill Joey Gordillo [place] Rosa[place] APRN, Med Refill for Transplantation and C.N.P., D.N.P. Clinical Regeneration in [address] [place] [address] [place] [address] [place] [address] [phone] Social History Tobacco Use Types Packs/Day Years Used Date Smoking Tobacco: Never Smokeless Tobacco: Never Alcohol Use Standard Drinks/Week Comments Yes 6 (1 standard drink = 0.6 oz pure alcoho l) Alcohol Habits Answer Date Recorded How often do you have a drink containing 4 or more times a w [place] 05/12/2021 alcohol? How many drinks containing alcohol [...] 05/12/2021 relatives? How often do you attend synagogue or jain Never 05/12/2021 services? Do you belong to any clubs or organizations such No 05/12/2021 as synagogue groups, unions, fraternal or athletic groups, or [...] have completed or the highest Young, MEd, R[employer] BOATMAN, ERNIE) degree you have received? Sex Assigned at Date Recorded Male 05/27/2018 8:52 AM CDT documented as of this encounter Plan of Treatment Not on filedocumented as of this encounter Visit Diagnoses Diagnosis Transplant Renal (HCC) documented in this encounter Care Teams Evaluation Specialist Relationship Specialty Start Date End Date [facility] [place] of Laboratory Medicine [place] [address] [place], [place] [address] documented as of this encounter
--- OUTSIDE RECORDS SUMMARY | 2022-08-23 09:59 | XMS_ITS | Encounter Summary ---
:1965 Author Organization [facility] Address [address] [place] [address] Care Team Providers Name Role Phone Unavailable Primary Care Provider Unavailable Encounter Details Date Type Department Care Team Description 01/25/2022 Orders Only Joey Agrawal, Maria Esther richards Renal (HCC) (Primary Dx); Center for Latesha L, High Risk Medic ation; Transplantation and R.N., C.C.T. C. Immunodeficiency Due To Drugs (HCC); Clinical Regeneration [phone] Medica tion Therapy Retirement Not Anticoagulant in [facility] rotary slicing machine operator (Work) 200 [facility] [phone] [place], [place] (Fax) [phone] Social History Tobacco Use Types Packs/Day Years Used Date Smoking Tobacco: Never Smokeless Tobacco: Never Alcohol Use Standard Drinks/Week Comments Yes 6 (1 standard drink = 0.6 oz pure alcoho l) Alcohol Habits Answer Date Recorded How often do you have a drink containing 4 or more times a w [place] 05/12/2021 alcohol? How many drinks containing alcohol [...] How often do you attend latter-day or mu-ism Never 05/12/2021 services? Do you belong to [...] of school Master's degree (e.g., M Shonna, , 05/08/2019 you have completed or the highest Young, MEd, DROP HAMMER PILE DRIVER OPERATOR, ERNIE) degree you have received? Sex Assigned at Date Recorded Male 05/27/2018 8:52 AM CDT documented as of this encounter Plan of Treatment Not on filedocumented as of this encounter Visit Diagnoses Diagnosis Transplant Renal (HCC) - Primary High Risk Medication Immunodeficiency Due To Drugs (HCC) Medication Therapy Retirement Not Anticoa gulant documented in this encounter Care Teams Software Packager Relationship Specialty Start Date End Date [facility] of Laboratory Medicine [place] [address] [place], [place] [address] documented as of this encounter
--- OUTSIDE RECORDS SUMMARY | 2022-08-23 09:59 | XMS_ITS | Encounter Summary ---
:1965 Author Organization [facility] Address [address] [place] [address] Care Team Providers Name Role Phone Unavailable Primary Care Provider Unavailable Encounter Details Date Type Department Care Team Description 11/28/2021 Hospital Encounter Department of Bryce, Gail [place] Renal Laboratory Medicine [place] (HCC) and Pathology, [address] [place] [address], in [facility] [address] [place] [phone] [place] [address] (Work) [place], [place] [phone] (Fax) [phone] Social History Tobacco Use Types Packs/Day Years Used Date Smoking Tobacco: Never Smokeless Tobacco: Never Alcohol Use Standard Drinks/Week Comments Yes 6 (1 standard drink = 0.6 oz pure alcoho l) Alcohol Habits Answer Date Recorded How often do you have a drink containing 4 or more times a w [place] 05/12/2021 alcohol? How many drinks containing alcohol [...] 05/12/2021 relatives? How often do you attend yazdanism or islam Never 05/12/2021 services? Do you belong to any clubs or organizations such No 05/12/2021 as yazdanism groups, unions, fraternal or athletic groups, or [...] have completed or the highest Young, MEd, DIETARY CLERK, ERNIE) degree you have received? Sex Assigned [...] 1 tablet by 0 03/23/2014 mouth daily. omega-3 fatty Take 1 capsule by 0 05/23/2016 acids-fish oil mouth daily. 300-1,000 mg per capsule predniSONE (DELTASONE) TAKE 1 TABLET BY 90 tablet 3 022 5 mg tabletIndications: MOUTH ONCE DAILY. Transplant Renal (HCC) alendronate (FOSAMAX) TAKE 1 TABLET (70 MG 12 tablet 3 10/202007/06/2022 70 mg tablet TOTAL) BY MOUTH ONCE A WEEK. mycophenolate TAKE 2 CAPSULES BY 270 capsule 2 08/24/2021 (CELLCEPT) 250 mg MOUTH IN THE MORNING capsuleIndications: AND 1 CAPSULE BY Transplant Renal (HCC) MOUTH IN THE PM TEVA BRAND tacrolimus (PROGRAF) 1 TAKE 2 CAPSULES (2 360 capsule 3 12/0 09/202007/03/2022 mg capsuleIndications: MG TOTAL) BY MOUTH 2 Transplant Renal (HCC) (TWO) TIMES A DAY. documented as of this encounter Plan of Treatment Not on filedocumented as of this encounter Procedures Procedure Name Priority Date/Time Associated Comments Diagnosis TACROLIMUS LEVEL, B Routine 02/01/2022 8:50 AM Transplant Mary l Results for this CDT (HCC) procedure are i n the results section. documented in this encounter Results Tacrolimus, B (02/01/2022 8:50 AM CDT) athologist Signature Tacrolimus, B 6.3 5.0-15.0 02/05/2022 [facility] (Trough) 3:57 PM CDT ng/mL Comment: ----ADDITIONAL [...] its performa nce characteristics determined by [facility] in a manner consistent with CLIA requirements. This test has not been cleared or approved by the U.S. Margarita d and Drug Administration. Specimen Anatomical Collection Method Collection Time Receive d Time (Source) Location / / Volume Laterality Blood (Blood, 02/01/2022 8:50 AM 02/06/20 1:02 Venous) CDT PM CDT Resulting Agency Comment Mailed In Specimen Howard Wu M.D. LAB BLOOD NON ADD-ON Performing Organization Address City/State/ZIP Code Phon e Number [facility] [address] [place], [place] [address] SUPPORT CENTER [facility] [place] [address] Laboratory Medicine and Pathology [address] documented in this encounter Visit Diagnoses Diagnosis Transplant Renal (HCC) documented in this encounter Care Teams Change Management Facilitator Relationship Specialty Start Date End Date [facility] of Laboratory Medicine [place] [address] [place], [place] [address] documented as of this encounter
--- OUTSIDE RECORDS SUMMARY | 2022-08-23 09:59 | XMS_ITS | Encounter Summary ---
:1965 Author Organization [facility] Address [address] [place] [address] Care Team Providers Name Role Phone Unavailable Primary Care Provider Unavailable Reason for Visit Reason Comments Med Refill Encounter Details Date Type Department Care Team Description 08/25/2021 Refill Division of Endocrinology in [place]ejay Cook M.D. Med Refill [place], [place] [address] [facility] [address] [place] [phone] (Wo rk) Social History Tobacco Use Types Packs/Day Years Used Date Smoking Tobacco: Never Smokeless Tobacco: Never Alcohol Use Standard Drinks/Week Comments Yes 6 (1 standard drink = 0.6 oz pure alcoho l) Alcohol Habits Answer Date Recorded How often do you have a drink containing 4 or more times a w [place] 05/12/2021 alcohol? How many drinks containing [...] 05/12/2021 relatives? How often do you attend quaker or zoroastrianism Never 05/12/2021 services? Do you belong to any clubs or organizations such No 05/12/2021 as quaker groups, unions, fraternal or athletic groups, or [...] have completed or the highest Young, MEd, ROUTE DRIVER COIN MACHINES, ERNIE) degree you have received? Sex Assigned at Date Recorded Male 05/27/2018 8:52 AM CDT documented as of this encounter Plan of Treatment Not on filedocumented as of this encounter Visit Diagnoses Not on filedocumented in this encounter Care Teams Blooming Mill Supervisor Relationship Specialty Start Date End Date [facility] [place] [address] [place], [place] [id number] documented as of this encounter
--- OUTSIDE RECORDS SUMMARY | 2022-08-23 09:59 | XMS_ITS | Encounter Summary ---
:1965 Author Organization [facility] Address [address] [place] [address] Care Team Providers Name Role Phone Unavailable Primary Care Provider Unavailable Reason for Visit Reason Comments Med Refill Encounter Details Date Type Department Care Team Description 08/23/2021 Refill Division of Nephrology and Joellen Fleming M.D. Med Refill Hypertension in [place], [facility] [address] [place] [address] [place] [address] [place], [place] [address] [phone] Social History Tobacco Use Types Packs/Day Years Used Date Smoking Tobacco: Never Smokeless Tobacco: Never Alcohol Use Standard Drinks/Week Comments Yes 6 (1 standard drink = 0.6 oz pure alcoho l) Alcohol Habits Answer Date Recorded How often do you have a drink containing 4 or more times a w cachil dehe 05/12/2021 alcohol? How many drinks containing alcohol [...] How often do you attend muslim or taoist Never 05/12/2021 services? Do you belong to [...] place to sleep or slept in a [facility] (including now)? Education Answer Date Recorded What is the highest level of school Master's degree (e.g., Beatrice Kilpatrick, , 05/08/2019 you have completed or the highest Young, MEd, STEAM SHOVEL OPERATOR, ERNIE) degree you have received? Sex Assigned at Date Recorded Male 05/27/2018 8:52 AM CDT documented as of this encounter Plan of Treatment Not on filedocumented as of this encounter Visit Diagnoses Diagnosis Transplant Renal (HCC) documented in this encounter Care Teams Makeup Artist Relationship Specialty Start Date End Date [facility] [place] [address] [place], [place] [address] documented as of this encounter
--- OUTSIDE RECORDS SUMMARY | 2022-08-23 09:59 | XMS_ITS | Encounter Summary ---
:1965 Author Organization [facility] Address [address] [place] [address] Care Team Providers Name Role Phone Unavailable Primary Care Provider Unavailable Encounter Details Date Type Department Care Team Description 10/05/2021 Orders Only Joey Castaneda, Diabet es [facility] Paulina Finch 2 With Diabetic and Clinical Regeneration [facility] in [facility] [place] [address] [facility] Disease (HCC) [address] [place] [phone] Social History Tobacco Use Types Packs/Day Years Used Date Smoking Tobacco: Never Smokeless Tobacco: Never Alcohol Use Standard Drinks/Week Comments Yes 6 (1 standard drink = 0.6 oz pure alcoho l) Alcohol Habits Answer Date Recorded How often do you have a drink containing 4 or more times a w samish 05/12/2021 alcohol? How many drinks containing alcohol [...] 05/12/2021 relatives? How often do you attend adventist or adventist Never 05/12/2021 services? Do you belong to any clubs or organizations such No 05/12/2021 as adventist groups, unions, fraternal or athletic groups, or [...] have completed or the highest Young, MEd, BALL SORTER, ERNIE) degree you have received? 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
--- OUTSIDE RECORDS SUMMARY | 2022-08-23 09:59 | XMS_ITS | Encounter Summary ---
:1965 Author Organization [facility] Address [address] [place] [address] Care Team Providers Name Role Phone Unavailable Primary Care Provider Unavailable Reason for Referral Outpatient (Routine) - Closed Specialty Diagnoses / Procedures Referred By Contact Refer red To Contact Diagnoses Transplant Renal (HCC) Nery Hannon M.D. [facility] Procedures ECG 12 Lead [address] [place] [phone] Referral ID Status Reason Start Date Expiration Date Visits Requ ested Visits Authorized [id number] Closed 03/06/2022 03/06/2023 1 1 Outpatient (Routine) - Closed Specialty Diagnoses / Procedures Referred By Contact Refer red To Contact Diagnoses Transplant Renal (HCC) Nery Hannon M.D. [facility] Procedures DX Chest AP or PA and Lateral 2 Views [address] [place] [address] Referral ID Status Reason Start Date Expiration Date Visits Requ ested Visits Authorized [id number] Closed 03/06/2022 03/06/2023 1 1 Outpatient (Routine) - Closed Specialty Diagnoses / Procedures Referred By Contact Refer red To Contact Diagnoses Transplant Renal (HCC) Nery Hannon M.D. [facility] Procedures Short renal clearance: Iothalamate (Renal Studies Unit) [address] [place] [phone] Referral ID Status Reason Start Date Expiration Date Visits Requ ested Visits Authorized [id number] Closed 03/06/2022 03/06/2023 1 1 Reason for Visit Reason Comments Annual Exam Encounter Details Date Type Department Care Team Description 02/21/2022 Clinical Communication Joey Castaneda, Annual Exam Center for [facility] and [facility] in [address] [place] [address] [place] [phone] [place] [phone] Social History Tobacco Use Types Packs/Day Years Used Date Smoking Tobacco: Never Smokeless Tobacco: Never Alcohol Use Standard Drinks/Week Comments Yes 6 (1 standard drink = 0.6 oz pure alcoho l) Alcohol Habits Answer Date Recorded How often do you have a drink containing 4 or more times a w [place] 05/12/2021 alcohol? How many drinks containing alcohol [...] How often do you attend voodoo or spiritism Never 05/12/2021 services? Do you [...] have completed or the highest Young, MEd, FLOOR WORKER, ERNIE) degree you have received? Sex Assigned at Date Recorded Male 05/27/2018 8:52 AM CDT documented as of this encounter Miscellaneous Notes Addendum Note - Nery Hannon M.D. - 03/06/2022 11:42 AM CDT Addended by: NERY HANNON on: 03/06/2022 11:42 AM Modules accepted: Orders Telephone Encounter - Regla Perez R.N. - 03/06/2022 9:14 AM CDT I added immunosuppression orders for you to second sign in addition to PASS's annual order set they placed. Thanks! Telephone Encounter - Kortney Kellogg - 03/03/2022 4:04 PM CDT Orders are now pending Addendum Note - Kortney Kellogg - 03/03/2022 4:04 PM CDT Addended by: KORTNEY KELLOGG on: 03/03/2022 04:04 PM Modules accepted: Orders, SmartSet Telephone Encounter - Kortney Kellogg - 02/21/2022 1:13 PM CDT Patient is scheduled for an annual visit on: ??? 05/11 ??? Annual Year: 11 ??? Provider: Riddhi Patient prefers to see Dermatology: [x] Yes [] No Is patient a Dual Organ Patient? []Yes [x]No Driving [] Flying [] Provider to review and order if needed: ??? Biopsy if needed ??? Validate Labs: o CMV/EBV Testing o Serology Testing (1 year Transplants after November 22, 2020 need PHS testing) o PSA - males >50 years old o HcG- females <50 years old Biopsy: []Right []Left []Patient Unsure [x]Not a Biopsy Year Immunosuppression Medication: *provider review needed for CellCept* Recent Labs 02/01/22 0850 TACROLIMUS 6.3 Diabetic: [] Yes [x]No ??? Patient prefers to see Endocrinology here? [] Yes [] No Osteoporosis: []Yes [x]No ??? Bone Density: Last one was on 05/2020 ??? *provider must order if needed* Thyroid Medication: []Yes [x]No Blood Thinner/Aspirin: [x]Yes, Medication Name: Baby aspirin [] No Asa Maintenance Testing Needed: *provider must order if needed* ??? Colonoscopy: [] Yes, Pharmacy Script: [] No ??? Mammo: [] Yes [x]No Please route reply to: rst txp kpn scheduling Any other items needing to be addressed: (PASS copy and paste and put on top) Indication/Diagnosis: Department Requested: Indication/Diagnosis: Department Requested: documented in this encounter Plan of Treatment Scheduled Orders Name Type Priority Associated Diagnoses Order S chedule Short renal clearance: Procedures Routine Transplant Renal ( HCC) Expected: Iothalamate (Renal , Expires: Studies Unit) 06/01/2023 documented as of this encounter Results Jarvis/Kid Storage, Urine (05/02/2022 9:24 AM CDT) Analysis Performed At Patho logist Time Signature Jarvis/Kid Collected DEFAULT 05/02/2022 S Storage, U 9:24 AM CDT Specimen Anatomical Collection Method Collection Time Receive d Time (Source) Location / / Volume Laterality Urine (Urine, 05/02/2022 9:24 AM 05/02/20 9:24 Voided) CDT AM CDT Nery Hannon M.D. LAB URINE ORDERABLES Performing Organization Address City/State/ZIP Code Phon e Number [facility] - [address] [place], [place] [address] [place] [address] Bacterial Culture, Aerobic + Susc, Urine (05/02/2022 9:23 AM CDT) Eurocept Method Time Signature Urine Culture No growth 05/03/2022 DTL after 1 day 8:31 AM CDT of incubation. Specimen Anatomical Collection Method Collection Time Receive d Time (Source) Location / / Volume Laterality Urine (Urine, 05/02/2022 9:23 AM 05/02/20 22 Midstream) CDT 10:25 AM CDT Comment: Specimen Source Site: Urine Nery Hannon M.D. LAB MICROBIOLOGY - GENERAL O RDERABLES Performing Organization Address City/[facility] Code Phon e Number [facility] - [address] [place] [address] Urinalysis with Microscopic: Urine, Midstream (05/02/2022 9:23 AM CDT) Eurocept Method Time Signature Source Urine, Urine, 05/02/2022 [...] 05/02/20 22 Midstream) CDT 10:10 AM CDT Nery Hannon M.D. LAB URINE ORDERABLES Performing Organization Address City/[facility] Phon e Number [facility] - 200 [place], [place] [address] [place] [address] [place] [address] ECG 12 Lead (05/02/2022 9:03 AM CDT) P athologist Signature Ventricular Rate 69 BPM MUSE ECG/Min MT Interval 142 ms MUSE QRSD Interval 102 ms MUSE QT Interval 384 ms MUSE QTC Interval 411 ms MUSE P [place] 41 degrees MUSE R [place] 76 degrees MUSE T Wave [place] 50 degrees MUSE Specimen Anatomical Collection Method Collection Time Receive d Time (Source) Location / / Volume Laterality 05/02/2022 9:03 AM 9:08 CDT AM CDT Impressions MUSE - 05/02/2022 9:08 AM CDT Normal sinus rhythm Normal ECG When compared with ECG of 13-MAY-2021 10 :35, No significant change was found Reviewed by CHAVO Steinberg Narrative This result has an attachment that is no t available. Procedure Note Rip Chatterjee M.D. - 05/02/2022Fo rmatting of this note might be different from the original. IMPRESSION: Normal sinus rhythm Normal ECG When compared with ECG of 13-MAY-2021 10 :35, No significant change was found Reviewed by CHAVO Steinberg Nery Hannon M.D. ECG ORDERABLES Performing Organization Address City/State/ZIP Code Phon e Number MUSE MUSE NA DX Chest AP or PA and Lateral [...] versus good inspiratory effort. Chest otherwise negative. Nery Hannon M.D. IMG DIAGNOSTIC IMAGING PROCE DURES (ABNORMAL) BKV DNA Detect/Quant (05/02/2022 8:08 AM CDT) Patholo gist Method Time Signature BKV DNA <22 (A) Undetected 05/02/2022 [facility] Detect/Quant, IU/mL 6:28 PM CDT P Comment: [...] performe d using the tosin BKV test ([employer] with the tosin 6800 System. Specimen Anatomical Collection Method Collection Time Receive d Time (Source) Location / / Volume Laterality Blood (Blood, 05/02/2022 8:08 AM 05/02/20 Venous) CDT 10:25 AM CDT Nery Hannon M.D. LAB MICROBIOLOGY - BLOOD ORD ERABLES Performing Organization Address City/[facility]/ZIP Code Phon e Number [facility] [address] [address] [place] [address] SUPPORT [facility] [place] [address] Laboratory Medicine and Pathology [address] [place] (ABNORMAL) Parathyroid Hormone (PTH) (05/02/2022 8:08 AM CDT) Analysis Performed At Patho logist Time Signature Parathyroid 137 (H) 15 - 65 05/02/2022 DTL Hormone (PTH), S pg/mL 9:18 AM CDT Specimen Anatomical Collection Method Collection Time Receive d Time (Source) Location / / Volume Laterality Blood (Blood, 05/02/2022 8:08 AM 05/02/20 8:48 Venous) CDT AM CDT Nery Hannon M.D. LAB BLOOD ADD-ON Performing Organization Address City/State/ZIP Code Phon e Number [facility] - [address] [place], [place] [address] [facility] [place] [address] [facility] [address] 25-Hydroxyvitamin D2 and D3 (05/02/2022 8:08 AM CDT) P athologist Signature 25-Hydroxy D2 <4.0 ng/mL 05/02/2022 [facility] 11:51 PM CDT 25-Hydroxy D3 40 ng/mL 05/02/2022 [facility] 11:51 PM CDT 25-Hydroxy D 40 ng/mL 05/02/2022 [facility] Total 11:51 PM CDT Comment: ----REFERENCE VALUE---- 25-HYDROXY D TOTAL (D2+D3) Optimum level s in the healthy population are 20-50, patients with bone disease may benefit from higher levels within this r cris. ----ADDITIONAL INFORMATION---- This test was developed and its performa nce characteristics determined by [facility] in a manner consistent with CLIA requirements. This test has not been cleared or approved by the [place] Marg[place] d and Drug Administration. Specimen Anatomical Collection Method Collection Time Receive d Time (Source) Location / / Volume Laterality Blood (Blood, 05/02/2022 8:08 AM 05/02/20 22 Venous) CDT 10:59 AM CDT Nery Hannon M.D. LAB BLOOD ADD-ON Performing Organization Address City/State/ZIP Code Phon e Number [facility] [address] [place], [place] [address] SUPPORT CENTER [facility] [place] [address] Laboratory Medicine and Pathology [address] [place] CMV DNA Detect / Quant, Plasma (05/02/2022 8:08 AM CDT) Patholo gist Method Time Signature CMV DNA Undetected Undetected 05/02/2022 [facility] Detect/Quant, IU/mL 5:26 PM CDT P Comment: Result in log IU/mL is Undetected. ----ADDITIONAL INFORMATION---- The quantification range of this assay i s 35 to 10,000,000 IU/mL (1.54 log to 7.00 log IU/mL). Testing was performed u sing the tosin CMV test ([employer] with the tosin Sensipass0 System. Specimen Anatomical Collection Method Collection Time Receive d Time (Source) Location / / Volume Laterality Blood (Blood, 05/02/2022 8:08 AM 05/02/20 22 Venous) CDT 10:25 AM CDT Nery Hannon M.D. LAB MICROBIOLOGY - BLOOD ORD ERABLES Performing Organization Address [facility] Phon e Number [facility] [address] [place], [place] [address] [facility] CENTER [facility] [place] [address] Laboratory Medicine and Pathology [address] [place] HLA Class II SAB Antibody Screen (05/02/2022 8:08 AM CDT) [facility] Method Time Signature Class II SAB Negative Not Applicable 05/04/2022 [id number] Overall Result 10:23 AM CDT SAB DRB1 NONE 05/04/2022 [facility] Specificity 10:23 AM CDT SAB [id number] NONE 05/04/2022 [facility] Specificity 10:23 AM CDT SAB DQB1 NONE 05/04/2022 [facility] Specificity 10:23 AM CDT SAB DPB1 NONE 05/04/2022 [facility] Specificity 10:23 AM CDT Comment: ----ADDITIONAL INFORMATION---- Method: Luminex Flow Cytometry CLIA: [id number] ??CLIA Dedenter: LEON STRATTON MD,PhD Specimen Anatomical Collection Method Collection Time Receive d Time (Source) Location / / Volume Laterality Blood (Blood, 05/02/2022 8:08 AM 05/02/20 22 9:32 Venous) CDT AM CDT Nery Hannon M.D. LAB HLA ORDERABLES Performing Organization Address City/[facility] Phon e Number [facility] - [address] [place], [place] [address] [facility] [place] [address] [facility] [address] HLA Class I SAB Antibody Screen (05/02/2022 8:08 AM CDT) [facility] Method Time Signature Class I SAB Negative Not Applicable 05/04/2022 [facility] Overall Result 10:07 AM CDT SAB A NONE 05/04/2022 [facility] Specificity 10:07 AM CDT SAB B NONE 05/04/2022 [facility] Specificity 10:07 AM CDT SAB C NONE 05/04/2022 D[facility] Specificity 10:07 AM CDT Comment: ----ADDITIONAL INFORMATION---- Method: Luminex Flow Cytometry CLIA: [id number] ??CLIA Dedenter: LEON STRATTON MD,PhD Specimen Anatomical Collection Method Collection Time Receive d Time (Source) Location / / Volume Laterality Blood (Blood, 05/02/2022 8:08 AM 05/02/20 22 9:32 Venous) CDT AM CDT Nery Hannon M.D. LAB HLA ORDERABLES Performing Organization Address [facility] Code Phon e Number [facility] - [address] [place] [address] [place] [address] Laboratories-[address] Jarvis/Kid 5cc Storage, B (05/02/2022 8:08 AM CDT) Analysis Performed At Patho logist Time Signature Storage, Red Collected DEFAULT 05/02/2022 HSS 8:08 AM CDT Storage, ACD Collected DEFAULT 05/02/2022 HSS 8:08 AM CDT Specimen Anatomical Collection Method Collection Time Receive d Time (Source) Location / / Volume Laterality Blood (Blood, 05/02/2022 8:08 AM 05/02/20 22 8:08 Venous) CDT AM CDT Narrative [facility] - [facility] [place] - 05/02/2022 8:08 AM CDT Specimen Information: Specimen ID: [id number] Specimen Type: Blood Specimen Collection Start Date: 2 ??8:08 AM Specimen Received Date: 05/02/2022 ??8:08 AM Specimen ID: [id number] Specimen Collection Start Date: 2 ??8:08 AM Specimen Received Date: 05/02/2022 ??8:08 AM Nery Hannon M.D. LAB BLOOD ADD-ON Performing Organization Address City/[facility] Code Phon e Number [facility] - [address] [place], [place] [address] [place] [address] [facility] 200 [facility] Hemoglobin A1c (05/02/2022 8:08 AM CDT) athologist [facility] Hemoglobin A1c, 5.6 4.0 - 5.6 05/02/2022 DT B % 9:47 AM CDT Specimen Anatomical Collection Method Collection Time Receive d Time (Source) Location / / Volume Laterality Blood (Blood, 05/02/2022 8:08 AM 05/02/20 22 8:34 Venous) CDT AM CDT Nery Hannon M.D. LAB BLOOD ADD-ON Performing Organization Address City/[facility]/ZIP Code Phon e Number [facility] - [address] Troponin T, 5th Generation (05/02/2022 8:08 AM CDT) athologist [facility] Troponin T, 5th 12 <=15 ng/L 05/02/2022 [facility] gen 9:09 AM CDT Specimen Anatomical Collection Method Collection Time Receive d Time (Source) Location / / Volume Laterality Blood (Blood, 05/02/2022 8:08 AM 05/02/20 22 8:45 Venous) CDT AM CDT Nery Hannon M.D. LAB BLOOD ADD-ON Performing Organization Address City/State/ZIP Code Phon e Number [facility] - [id number] [place] [address] (ABNORMAL) Lipid Panel (05/02/2022 8:08 AM CDT) athologist Signature Triglycerides 117 mg/dL 05/02/2022 DT 9:05 AM CDT Comment: ----REFERENCE VALUE---- Normal: [...] CDT DTL Cholesterol, Non-HDL, Calculated 135 mg/dL 9:05 AM CDT DTL Comment: ----REFERENCE VALUE---- [...] 05/02/20 22 8:45 Venous) CDT AM CDT Nery Hannon M.D. LAB BLOOD ADD-ON Performing Organization Address City/[facility]/ZIP Code Phon e Number [facility] - [address] [place] [address] [facility] [address] [facility] 200 [facility] Magnesium (05/02/2022 8:08 AM CDT) P athologist Signature Magnesium, S 2.2 1.7 - 2.3 05/02/2022 DTL mg/dL 9:18 AM CDT Specimen Anatomical Collection Method Collection Time Receive d Time (Source) Location / / Volume Laterality Blood (Blood, 05/02/2022 8:08 AM 05/02/20 22 8:48 Venous) CDT AM CDT Nery Hannon M.D. LAB BLOOD ADD-ON Performing Organization Address City/State/ZIP Code Phon e Number [facility] - 200 [place], [place] [address] [place] [address] Laboratories-[address] Phosphorus Inorganic (05/02/2022 8:08 AM CDT) P athologist Signature Phosphorus 2.6 2.5 - 4.5 05/02/2022 DTL (Inorganic), S mg/dL 9:18 AM CDT Specimen Anatomical Collection Method Collection Time Receive d Time (Source) Location / / Volume Laterality Blood (Blood, 05/02/2022 8:08 AM 05/02/20 8:48 Venous) CDT AM CDT Nery Hannon M.D. LAB BLOOD ADD-ON Performing Organization Address City/[facility] Phon e Number [facility] - [address] [place] [address] [place] [address] [facility]-[address] (ABNORMAL) Comprehensive Metabolic Panel (05/02/2022 8:08 [...] 05/02/2022 DTL Black/ mL/min/BSA 9:05 AM CDT Russian Comment: ----ADDITIONAL INFORMATION---- Estimated GFR calculated using [...] AM 05/02/20 8:45 Venous) CDT AM CDT Nery Hannon M.D. LAB BLOOD ADD-ON Performing Organization Address City/State/ZIP Code Phon e Number [facility] - [address] [place], [place] [address] [facility] [place] [address] [facility] [address] (ABNORMAL) CBC with Differential, Blood (05/02/2022 8:08 AM CDT) [facility] gist Method Time Signature Hemoglobin 14.9 13.2 - [...] 05/02/20 22 8:34 Venous) CDT AM CDT Nery Hannon M.D. LAB BLOOD ADD-ON Performing Organization Address City/State/ZIP Code Phon e Number [facility] - [address] [place], [place] [address] [facility] [place] [address] [facility] 200 [facility] APTT (Activated Partial Thromboplastin Time) (05/02/2022 8:07 AM CDT) P athologist Signature Activated 30 25 - 37 sec 05/02/2022 DTL Partial 9:12 AM CDT Thrombopl Time, P Specimen Anatomical Collection Method Collection Time Receive d Time (Source) Location / / Volume Laterality Blood (Blood, 05/02/2022 8:07 AM 05/02/20 22 8:34 Venous) CDT AM CDT Nery Hannon M.D. LAB BLOOD ADD-ON Performing Organization Address City/[facility] Phon e Number [facility] - 200 [place], [place] [address] [place] [address] [facility] 200 [facility] Prothrombin Time (PT) (05/02/2022 8:07 AM CDT) athologist Signature Prothrombin 10.9 9.4 - 12.5 [...] 05/02/20 22 8:34 Venous) CDT AM CDT Nery Hannon M.D. LAB BLOOD ADD-ON Performing Organization Address City/[facility] Code Phon e Number [facility] - 200 [place], [place] [address] [place] [address] [facility] 200 [facility] Albumin, 24 Hour Collection, Urine (05/02/2022 7:40 AM CDT) athologist Signature Albumin, 24 Hr, <15 <30 mg/24 h 05/02/2022 DTL U 11:20 AM CDT Comment: ----ADDITIONAL INFORMATION---- This test has been modified from the man ufacturer's instructions. Its performance characteri stics were determined by [facility] in a manner co nsistent with CLIA [...] AM 05/02 9:42 Hours) CDT AM CDT Nery Hannon M.D. LAB URINE ORDERABLES Performing Organization Address City/[facility] Phon e Number [facility] - [address] [place], [place] [address] [facility] [place] [address] Laboratories-[address] Protein, Total, 24 HR, Urine (05/02/2022 7:40 AM CDT) P athologist Signature Total Protein, <118 <229 mg/24 05/02/2022 DTL 24 HR, U h 10:12 AM CDT Collection 24 h 05/02/2022 DTL Duration 7:47 AM CDT Urine Volume 2944 mL 05/02/2022 DTL 8:51 AM CDT Specimen Anatomical Collection Method Collection Time Receive d Time (Source) Location / / Volume Laterality Urine (Urine, 05/02/2022 7:40 AM 05/02 8:51 Hours) CDT AM CDT Nery Hannon M.D. 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 [place], [place] [address] documented as of this encounter
--- OUTSIDE RECORDS SUMMARY | 2022-08-23 09:59 | XMS_ITS | Encounter Summary ---
:1965 Author Organization [facility] Address [address] [place] [address] Care Team Providers Name Role Phone Unavailable Primary Care Provider Unavailable Reason for Visit Reason Comments External Lab Entry 02/01/2022 Encounter Details Date Type Department Care Team Description 02/02/2022 Clinical Joey Gordillo Transplant, Shower Enclosure Installer al Lab Entry Communication Center for Coordinator, (02/01/2022/) Transplantation and R.N. Clinical Regeneration in [facility] quotation checker [address] [place] [address] Social History Tobacco Use Types Packs/Day Years Used Date Smoking Tobacco: Never Smokeless Tobacco: Never Alcohol Use Standard Drinks/Week Comments Yes 6 (1 standard drink = 0.6 oz pure alcoho l) Alcohol Habits Answer Date Recorded How often do you have a drink containing 4 or more times a w pauma 05/12/2021 alcohol? How many drinks containing alcohol [...] How often do you attend voodoo or congregational Never 05/12/2021 services? Do you belong to [...] have completed or the highest Young, MEd, SUSTAINABILITY COORDINATOR, ERNIE) degree you have received? Sex Assigned at Date Recorded Male 05/27/2018 8:52 AM CDT documented as of this encounter Plan of Treatment Not on filedocumented as of this encounter Procedures Procedure Name Priority Date/Time Associated Comments Diagnosis EXTP TRANSPLANT Routine 02/01/2022 8:45 AM Result s for this KIDNEY/PANCREAS - CDT procedure are in URINE, EXTERNAL LAB the resu lts RESULTS section. EXTP TRANSPLANT Routine 02/01/2022 8:45 AM Result s for this KIDNEY/PANCREAS - CDT procedure are in BLOOD, EXTERNAL LAB the resu lts RESULTS section. documented in this encounter Results Transplant Kidney/Pancreas - Urine, External Lab Results (02/01/2022 8:45 AM CDT) P athologist Signature EXT 11 Albumin/Creatin ine Ratio Specimen (Source) Anatomical Collection Method Collection Time Re ceived Time Location / / Volume Laterality Urine 02/01/2022 8:45 AM CDT Narrative This result has an attachment that is no t available. Historical Provider LAB URINE ORDERABLES Transplant Kidney/Pancreas - Blood, External Lab Results (02/01/2022 8:45 AM CDT) P athologist Signature EXT Leukocytes 3.7 EXT Absolute 2.4 Neutrophils EXT Hemoglobin 15.1 EXT Platelet 175 Count EXT Glucose 150 EXT Creatinine 1.3 mg/dL EXT Potassium 5.4 EXT Magnesium 1.9 EXT Phosphorus 2.7 (Inorganic), S Specimen (Source) Anatomical Collection Method Collection Time Re ceived Time Location / / Volume Laterality Blood 02/01/2022 8:45 AM CDT Narrative This result has an attachment that is no t available. Historical Provider LAB BLOOD NON ADD-ON documented in this encounter Visit Diagnoses Not on filedocumented in this encounter Care Teams Mutuel Cashier Relationship Specialty Start Date End Date [facility] [place] [address] [place], [place] [address] documented as of this encounter
--- OUTSIDE RECORDS SUMMARY | 2022-08-23 09:59 | XMS_ITS | Encounter Summary ---
:1965 Author Organization [facility] Address [address] [place] [address] Care Team Providers Name Role Phone Unavailable Primary Care Provider Unavailable Reason for Visit Reason Comments Med Refill Encounter Details Date Type Department Care Team Description 09/26/2021 [facility], Med Refill Transplantation and Clinical M.D . Regeneration in [place] [address] [address] [place], [place] [address] [place] [address] [place] [address] [phone] Social History Tobacco Use Types Packs/Day Years Used Date Smoking Tobacco: Never Smokeless Tobacco: Never Alcohol Use Standard Drinks/Week Comments Yes 6 (1 standard drink = 0.6 oz pure alcoho l) Alcohol Habits Answer Date Recorded How often do you have a drink containing 4 or more times a w [place] 05/12/2021 alcohol? How many drinks containing alcohol [...] How often do you attend yazdanism or evangelical Never 05/12/2021 services? Do you belong to [...] place to sleep or slept in a fpc (including now)? Education Answer Date Recorded What is the highest level of school Master's degree (e.g., Beatrice Kilpatrick, , 05/08/2019 you have completed or the highest Young, MEd, SALES REPRESENTATIVE ADDING MACHINES, ERNIE) degree you have received? 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
--- OUTSIDE RECORDS SUMMARY | 2022-08-23 09:59 | XMS_ITS | Encounter Summary ---
:1965 Author Organization [facility] Address [address] [place] [address] Care Team Providers Name Role Phone Unavailable Primary Care Provider Unavailable Reason for Visit Reason Comments Med Refill Encounter Details Date Type Department Care Team Description 08/23/2021 Refill Joey Gordillo [place] for [place], María, Med Refill Transplantation and Clinical M.D . Regeneration in [place] [address] 1 [place], [place] [address] [place] [phone] [place] [address] [phone] Social History Tobacco Use Types Packs/Day Years Used Date Smoking Tobacco: Never Smokeless Tobacco: Never Alcohol Use Standard Drinks/Week Comments Yes 6 (1 standard drink = 0.6 oz pure alcoho l) Alcohol Habits Answer Date Recorded How often do you have a drink containing 4 or more times a w [place] 05/12/2021 alcohol? How many drinks containing alcohol [...] 05/12/2021 relatives? How often do you attend religion or episcopal Never 05/12/2021 services? Do you belong to any clubs or organizations such No 05/12/2021 as religion groups, unions, fraternal or athletic groups, or [...] place to sleep or slept in a [place] [facility] facility (including now)? Education Answer Date Recorded What is the highest level of school Master's degree (e.g., Beatrice Kilpatrick MS, 05/08/2019 you have completed or the highest Young, MEd, RN MENTAL HEALTH, ERNIE) degree you have received? Sex Assigned at Date Recorded Male 05/27/2018 8:52 AM CDT documented as of this encounter Plan of Treatment Not on filedocumented as of this encounter Visit Diagnoses Diagnosis Transplant Renal (HCC) documented in this encounter Care Teams Child Development Assistant Relationship Specialty Start Date End Date [facility] [place] [address] [place], [place] [address] documented as of this encounter
--- OUTSIDE RECORDS SUMMARY | 2022-08-23 09:59 | XMS_ITS | Encounter Summary ---
:1965 Author Organization [facility] Address [address] [place] [address] Care Team Providers Name Role Phone Unavailable Primary Care Provider Unavailable Reason for Visit Reason Comments Immunizations Encounter Details Date Type Department Care Team Description 11/08/2021 Immunization Section of Preventive, Transportation and Occupational Medicine in [place], [place] [address] [place] [address] Social History Tobacco Use Types Packs/Day Years Used Date Smoking Tobacco: Never Smokeless Tobacco: Never Alcohol Use Standard Drinks/Week Comments Yes 6 (1 standard drink = 0.6 oz pure alcoho l) Alcohol Habits Answer Date Recorded How often do you have a drink containing 4 or more times a w [place] 05/12/2021 alcohol? How many drinks containing alcohol [...] How often do you attend mandaen or yazidism Never 05/12/2021 services? Do you belong to [...] have completed or the highest Young, Macy, SILK PRESSER, ERNIE) degree you have received? Sex Assigned at Date Recorded Male 05/27/2018 8:52 AM CDT documented as of this encounter Plan of Treatment Not on filedocumented as of this encounter Visit Diagnoses Not on filedocumented in this encounter Care Teams Master Printer Relationship Specialty Start Date End Date [facility] [place] [address] [place], [place] [address] documented as of this encounter
--- OUTSIDE RECORDS SUMMARY | 2022-08-23 09:59 | XMS_ITS | Encounter Summary ---
:1965 Author Organization [facility] Address [address] [place] [address] Care Team Providers Name Role Phone Unavailable Primary Care Provider Unavailable Reason for Visit Reason Comments Other Complete Solaryle Emeka 14 day CGM r eport Encounter Details Date Type Department Care Team Description 11/08/2021 Clinical Ayleen Hurtado ([facility] for Emeka [place] 14 day C GM Transplantation and Hermilo, CDE report) Clinical Regeneration [phone] in [facility] [place] [address] [place] [phone] Social History Tobacco Use Types Packs/Day Years [...] How often do you attend voodoo or rastafari Never 05/12/2021 services? Do you belong to [...] have completed or the highest Young, MEd, LEAD CARGOMAN, ERNIE) degree you have received? Sex Assigned at Date Recorded Male 05/27/2018 8:52 AM CDT documented as of this encounter Plan of Treatment Not on filedocumented as of this encounter Visit Diagnoses Not on filedocumented in this encounter Care Teams Dispatcher Maintenance Service Relationship Specialty Start Date End Date [facility] [place] [address] [place], [place] [address] documented as of this encounter
--- OUTSIDE RECORDS SUMMARY | 2022-08-23 09:59 | XMS_ITS | Encounter Summary ---
:1965 Author Organization [facility] Address [address] [place] [address] Care Team Providers Name Role Phone Unavailable Primary Care Provider Unavailable Encounter Details Date Type Department Care Team Description 02/24/2022 Hospital Encounter Department of Bryce, Gail Staton Renal Laboratory Medicine MTereso (HCC) and Pathology, [address] [place] [address], in [facility] [address] [place] [phone] [place] [address] (Work) [place], [place] [phone] (Fax) [phone] Social History Tobacco Use Types Packs/Day Years Used Date Smoking Tobacco: Never Smokeless Tobacco: Never Alcohol Use Standard Drinks/Week Comments Yes 6 (1 standard drink = 0.6 oz pure alcoho l) Alcohol Habits Answer Date Recorded How often do you have a drink containing 4 or more times a w [place] 05/12/2021 alcohol? How many drinks containing alcohol [...] How often do you attend taoist or protestant Never 05/12/2021 services? Do you [...] have completed or the highest Young, MEd, SUPPORT REPRESENTATIVE, ERNIE) degree you have received? Sex Assigned [...] Associated Comments Diagnosis TACROLIMUS LEVEL, B Routine 05/23/2022 8:15 AM Transplant Mary l Results for this CDT (HCC) procedure are i n the results section. documented in this encounter Results (ABNORMAL) Tacrolimus, B (05/23/2022 8:15 AM CDT) athologist Signature Tacrolimus, B 4.8 (L) 5.0-15.0 05/24/2022 [facility] (Trough) 4:32 PM CDT ng/mL Comment: [...] and its performa nce characteristics determined by [facility] in a manner consistent with CLIA requirements. [...] & [address]YCE Leon [place] [address] [place] [address] [place] [address] Laboratory Medicine and Pathology [address] [place] documented in this encounter Visit Diagnoses Diagnosis Transplant Renal (HCC) documented in this encounter Care Teams Curbing Stonecutter Relationship Specialty Start Date End Date [facility] of Laboratory Medicine [place] [address] [place], [place] [address] documented as of this encounter
--- OUTSIDE RECORDS SUMMARY | 2022-08-23 09:59 | XMS_ITS | Encounter Summary ---
:1965 Author Organization [facility] Address [address] [place] [address] Care Team Providers Name Role Phone Unavailable Primary Care Provider Unavailable Encounter Details Date Type Department Care Team Description 09/01/2021 Hospital Encounter Department of Bryce, Gail Staton Renal Laboratory Medicine M[place] (HCC) and Pathology, [address] [place] [address], in [facility] [address] [place] [phone] [place] [address] (Work) [place], [place] [phone] (Fax) [phone] Social History Tobacco Use Types Packs/Day Years Used Date Smoking Tobacco: Never Smokeless Tobacco: Never Alcohol Use Standard Drinks/Week Comments Yes 6 (1 standard drink = 0.6 oz pure alcoho l) Alcohol Habits Answer Date Recorded How often do you have a drink containing 4 or more times a w [place] 05/12/2021 alcohol? How many drinks containing alcohol [...] 05/12/2021 relatives? How often do you attend roman catholic or confucianism Never 05/12/2021 services? Do you belong to any clubs or organizations such No 05/12/2021 as roman catholic groups, unions, fraternal or athletic groups, or [...] have completed or the highest Young, MEd, PIERCE AND SHAVE PRESS OPERATOR, ERNIE) degree you have received? Sex [...] under the skin every 6 (six) months. ketoconazole (NIZORAL) Apply 1 application 120 mL [...] oil mouth daily. 300-1,000 mg per capsule alendronate (FOSAMAX) TAKE 1 TABLET (70 MG 12 tablet 3 10/202007/06/2022 70 mg tablet TOTAL) BY MOUTH ONCE A WEEK. flash glucose sensor 1 kit every 14 1 kit 0 05/25/2021 10/04/2021 (FreeStyle Emeka 14 Day (fourteen) days. Sensor) kitIndications: Diabetes Mellitus Type 2 With Diabetic Chronic Kidney Disease (HCC) mycophenolate TAKE 2 CAPSULES BY 270 capsule 2 08/24/2021 (CELLCEPT) 250 mg MOUTH IN THE MORNING capsuleIndications: AND 1 CAPSULE BY Transplant Renal (HCC) MOUTH IN THE PM TEVA BRAND predniSONE (DELTASONE) TAKE 1 TABLET BY 90 tablet 3 021 11/07/2021 5 mg tabletIndications: MOUTH ONCE DAILY. Transplant Renal (HCC) tacrolimus (PROGRAF) 1 TAKE 2 CAPSULES (2 360 capsule 3 12/0 09/202007/03/2022 mg capsuleIndications: MG TOTAL) BY MOUTH 2 Transplant Renal (HCC) (TWO) TIMES A DAY. documented as of this encounter Plan of Treatment Not on filedocumented as of this encounter Procedures Procedure Name Priority Date/Time Associated Comments Diagnosis TACROLIMUS LEVEL, B Routine 11/07/2021 8:20 AM Transplant Mary l Results for this COLORER MACHINE (HCC) procedure are i n the results section. documented in this encounter Results Tacrolimus, B (11/07/2021 8:20 AM COLORER MACHINE) athologist Signature Tacrolimus, B 5.8 5.0-15.0 11/09/2021 [facility] (Trough) 10:27 AM COLORER MACHINE ng/mL Comment: ----ADDITIONAL INFORMATION---- Target steady-state trough concentration s vary depending on the type of transplant, concomitant immunosuppressio n, clinical/institutional protocols, and time post-transplant. Results should be interpreted in conjunction with this clinical information and any physic al signs/symptoms of rejection/toxicity. Testing performed by Liquid Chromatograp hy-Tandem Mass Spectrometry (LC-MS/MS). This test was developed and its performa nce characteristics determined by [facility] in a manner consistent with CLIA requirements. This test has not been cleared or approved by the [place] Marg[place] d and Drug Administration. Specimen Anatomical Collection Method Collection Time Receive d Time (Source) Location / / Volume Laterality Blood (Blood, 11/07/2021 8:20 AM 11/08/19 3:31 Venous) COLORER MACHINE PM COLORER MACHINE Howard Wu M.D. LAB BLOOD NON ADD-ON Performing Organization Address City/State/ZIP Code Phon e Number [facility] [address] ALYCE Leon MD [address] [facility] [place] [address] Laboratory Medicine and Pathology [address] [place] documented in this encounter Visit Diagnoses Diagnosis Transplant Renal (HCC) documented in this encounter Care Teams Receiving Inspector Relationship Specialty Start Date End Date [facility] Laboratory Medicine [place] [address] [place], [place] [address] documented as of this encounter
--- OUTSIDE RECORDS SUMMARY | 2022-08-23 09:59 | XMS_ITS | Encounter Summary ---
:1965 Author Organization [facility] Address [address] [place] [address] Care Team Providers Name Role Phone Unavailable Primary Care Provider Unavailable Reason for Visit Reason Comments External Lab Entry 11/07/2021 Encounter Details Date Type Department Care Team Description 11/08/2021 Clinical Joey Gordillo Transplant, Oxide Furnace Tender al Lab Entry Communication Center for Coordinator, (11/07/2021) Transplantation and R.N. Clinical Regeneration in [facility] [place] [address] [place] [address] Social History Tobacco Use Types Packs/Day Years Used Date Smoking Tobacco: Never Smokeless Tobacco: Never Alcohol Use Standard Drinks/Week Comments Yes 6 (1 standard drink = 0.6 oz pure alcoho l) Alcohol Habits Answer Date Recorded How often do you have a drink containing 4 or more times a w [place] 05/12/2021 alcohol? How many drinks containing alcohol [...] 05/12/2021 relatives? How often do you attend gnosticist or orthodox Never 05/12/2021 services? Do you belong to any clubs or organizations such No 05/12/2021 as gnosticist groups, unions, fraternal or athletic groups, or [...] have completed or the highest Young, MEd, STONE POLISHER MACHINE, ERNIE) degree you have received? Sex Assigned at Date Recorded Male 05/27/2018 8:52 AM CDT documented as of this encounter Plan of Treatment Not on filedocumented as of this encounter Procedures Procedure Name Priority Date/Time Associated Comments Diagnosis EXTP TRANSPLANT Routine 11/07/2021 8:20 AM Result s for this KIDNEY/PANCREAS - MANAGER MUTUAL FUND procedure are in URINE, EXTERNAL LAB the resu lts RESULTS section. EXTP TRANSPLANT Routine 11/07/2021 8:20 AM Result s for this KIDNEY/PANCREAS - MANAGER MUTUAL FUND procedure are in BLOOD, EXTERNAL LAB the resu lts RESULTS section. documented in this encounter Results Transplant Kidney/Pancreas - Urine, External Lab Results (11/07/2021 8:20 AM MANAGER MUTUAL FUND) P athologist Signature EXT 10 Albumin/Creatin ine Ratio Specimen (Source) Anatomical Collection Method Collection Time Re ceived Time Location / / Volume Laterality Urine 11/07/2021 8:20 AM MANAGER MUTUAL FUND Narrative This result has an attachment that is no t available. Historical Provider LAB URINE ORDERABLES Transplant Kidney/Pancreas - Blood, External Lab Results (11/07/2021 8:20 AM MANAGER MUTUAL FUND) athologist Signature EXT Hemoglobin 5.5 A1c, B Specimen (Source) Anatomical Collection Method Collection Time Re ceived Time Location / / Volume Laterality Blood 11/07/2021 8:20 AM MANAGER MUTUAL FUND Narrative This result has an attachment that is no t available. Historical Provider LAB BLOOD NON ADD-ON documented in this encounter Visit Diagnoses Not on filedocumented in this encounter Care Teams Beater And Pulper Feeder Relationship Specialty Start Date End Date [facility] of Laboratory Medicine [place] [address] [place], [place] [address] documented as of this encounter
--- OUTSIDE RECORDS SUMMARY | 2022-08-23 10:00 | XMS_ITS | Encounter Summary ---
:1965 Author Organization [facility] Address [address] [place] [address] Care Team Providers Name Role Phone Unavailable Primary Care Provider Unavailable Encounter Details Date Type Department Care Team Description 05/10/2021 Orders Only [facility] PCP TH Sa sonia Childers M.D. [address] [place], [place] [phone] (Wo rk) Social History Tobacco Use Types Packs/Day Years Used Date Smoking Tobacco: Never Smokeless Tobacco: Never Alcohol Habits Answer Date Recorded How often do you have a drink containing 4 or more times a w [place] 05/12/2021 alcohol? How many drinks containing alcohol [...] 05/12/2021 relatives? How often do you attend spiritism or oriental orthodox Never 05/12/2021 services? Do you belong to any clubs or organizations such No 05/12/2021 as spiritism groups, unions, fraternal or athletic groups, or [...] have completed or the highest Young, Macy, RETORT PRESS OPERATOR, ERNIE) degree you have received? Sex Assigned at Date Recorded Male 05/27/2018 8:52 AM CDT documented as of this encounter Plan of Treatment Not on filedocumented as of this encounter Visit Diagnoses Not on filedocumented in this encounter Care Teams Medical Registrar Relationship Specialty Start Date End Date [facility] of Laboratory Medicine [place] [address] [place], [place] [address] documented as of this encounter
--- OUTSIDE RECORDS SUMMARY | 2022-08-23 10:00 | XMS_ITS | Encounter Summary ---
:1965 Author Organization [facility] Address [address] [place] [address] Care Team Providers Name Role Phone Unavailable Primary Care Provider Unavailable Encounter Details Date Type Department Care Team Description 05/13/2021 Hospital Encounter Department of Garth Hannona nt Renal Radiology, [facility] in .[place], [place] [address] [facility] [address] [place] [address] [phone] Social History Tobacco Use Types Packs/Day Years Used Date Smoking Tobacco: Never Smokeless Tobacco: Never Alcohol Habits Answer Date Recorded How often do you have a drink containing 4 or more times a w [place] 05/12/2021 alcohol? How many drinks containing alcohol [...] How often do you attend sabianism or congregation Never 05/12/2021 services? Do you belong to [...] have completed or the highest Young, MEd, GLASS BELT SANDER, ERNIE) degree you have received? Sex Assigned [...] 1 TABLET (70 MG 12 tablet 3 09/2408/25/2021 70 mg tablet TOTAL) BY MOUTH ONCE A WEEK. mycophenolate TAKE 2 CAPSULES BY 270 capsule 3 10/11/2020 (CELLCEPT) 250 mg MOUTH IN THE MORNING capsuleIndications: AND 1 CAPSULE BY Transplant Renal (HCC) MOUTH IN THE PM TEVA BRAND predniSONE (DELTASONE) TAKE 1 TABLET BY 90 tablet 3 021 11/07/2021 5 mg tabletIndications: MOUTH ONCE DAILY. Transplant Renal (HCC) tacrolimus (PROGRAF) 1 Take 2 capsules (2 360 capsule 3 08/2408/24/2021 mg capsuleIndications: mg total) by mouth 2 Transplant Renal (HCC) (two) times a day. documented as of this encounter Plan of Treatment Not on filedocumented as of this encounter Procedures Procedure Name Priority Date/Time Associated Comments Diagnosis DX CHEST AP OR PA RAD - Routine 05/13/2021 10:47 Transplant Renal R esults for this AND LATERAL 2 (most inpatients AM CDT (HCC) procedure are in VIEWS and all the results outpatients) section. documented in this encounter Results DX Chest AP or PA and Lateral 2 Views (05/13/2021 10:47 AM CDT) Anatomical Region Laterality Modality Chest, Thoracic RST LOS, Thoracic ARZ LOS, Thoracic N/A Digital Radiography FLA LOS Specimen (Source) Anatomical Collection Method Collection Time Re ceived Time Location / / Volume Laterality 05/13/2021 10:47 AM CDT Impressions 05/13/2021 10:56 AM CDT No significant change since 05/25/2020. Negative chest. Narrative 05/13/2021 10:56 AM CDT EXAM: ??DX CHEST AP OR PA AND LATERAL 2 VIEWS Procedure Note Juan Dyer M.D. - 05/13/2021For matting of this note might be different from the original. EXAM: DX CHEST AP OR PA AND LATERAL 2 EWS IMPRESSION: No significant change since 05/25/2020. Negative chest. Josette LOPEZ DI[facility]NO[facility] KIMMIE HUANG documented in this encounter Visit Diagnoses Diagnosis Transplant Renal (HCC) documented in this encounter Care Teams Case Technician Relationship Specialty Start Date End Date [facility] Laboratory Medicine [place] [address] [place], [place] [address] documented as of this encounter
--- OUTSIDE RECORDS SUMMARY | 2022-08-23 10:00 | XMS_ITS | Encounter Summary ---
:1965 Author Organization [facility] Address [address] [place] [address] Care Team Providers Name Role Phone Unavailable Primary Care Provider Unavailable Reason for Visit Reason Comments External Lab Entry 04/20/2021 Encounter Details Date Type Department Care Team Description 04/26/2021 Clinical Joey Gordillo Transplant, Lan/Wan Engineer al Lab Entry Communication Center for Coordinator, (04/20/2021) Transplantation and R.N. Clinical Regeneration in [facility] [place] [address] [place] [address] Social History Tobacco Use Types Packs/Day Years Used Date Smoking Tobacco: Never Smokeless Tobacco: Never Alcohol Habits Answer Date Recorded How often do you have a drink containing 4 or more times a w [place] 05/12/2021 alcohol? How many drinks containing alcohol [...] 05/12/2021 relatives? How often do you attend hindu or alevism Never 05/12/2021 services? Do you belong to any clubs or organizations such No 05/12/2021 as hindu groups, unions, fraternal or athletic groups, or [...] level of school Master's degree (e.g., M Shonna , 05/08/2019 you have completed or the highest Young, MEd, ASPHALT MIXER, ERNIE) degree you have received? Sex Assigned at Date Recorded Male 05/27/2018 8:52 AM CDT documented as of this encounter Plan of Treatment Not on filedocumented as of this encounter Procedures Procedure Name Priority Date/Time Associated Comments Diagnosis EXTP TRANSPLANT Routine 04/20/2021 7:48 AM Result s for this KIDNEY/PANCREAS - CDT procedure are in URINE, EXTERNAL LAB the resu lts RESULTS section. EXTP TRANSPLANT Routine 04/20/2021 7:48 AM Result s for this KIDNEY/PANCREAS - CDT procedure are in BLOOD, EXTERNAL LAB the resu lts RESULTS section. documented in this encounter Results Transplant Kidney/Pancreas - Urine, External Lab Results (04/20/2021 7:48 AM CDT) athologist Signature EXT 11 Albumin/Creatin ine Ratio Specimen (Source) Anatomical Collection Method Collection Time Re ceived Time Location / / Volume Laterality Urine 04/20/2021 7:48 AM CDT Narrative This result has an attachment that is no t available. Historical Provider LAB URINE ORDERABLES Transplant Kidney/Pancreas - Blood, External Lab Results (04/20/2021 7:48 AM CDT) athologist Signature EXT Leukocytes 3.7 EXT Absolute 2.2 Neutrophils EXT Hemoglobin 14.6 EXT Platelet 172 Count EXT Glucose 133 EXT Creatinine 1.6 mg/dL EXT Potassium 4.7 Specimen (Source) Anatomical Collection Method Collection Time Re ceived Time Location / / Volume Laterality Blood 04/20/2021 7:48 AM CDT Narrative This result has an attachment that is no t available. Historical Provider LAB BLOOD NON ADD-ON documented in this encounter Visit Diagnoses Not on filedocumented in this encounter Care Teams Lath Hand Relationship Specialty Start Date End Date [facility] of Laboratory Medicine [place] [address] [place], [place] [address] documented as of this encounter
--- OUTSIDE RECORDS SUMMARY | 2022-08-23 10:00 | XMS_ITS | Encounter Summary ---
:1965 Author Organization [facility] Address [address] [place] [address] Care Team Providers Name Role Phone Unavailable Primary Care Provider Unavailable Reason for Referral Transplant (Routine) - Closed Specialty Diagnoses / Procedures Referred By Contact Refer red To Contact Transplant Surgery / Diagnoses Diabetes Mellitus Type 2 With Diabetic Chronic Kidney Disease (HCC) [facility] M.DKg [address] [place] [address] Referral ID Status Reason Start Date Expiration Date Visits Requ ested Visits Authorized [id number] Closed 05/20/2021 05/20/2022 1 1 Encounter Details Date Type Department Care Team Description 05/20/2021 Orders Only oJey Castaneda, Diabet es Mellitus [facility] Paulina Finch 2 With Diabetic and Clinical Regeneration MTereso Chronic Kidney in [facility] [place] [address] [facility] Disease (HCC) [address] [place], [place] (Primary Dx) [place] [phone] Social History Tobacco Use Types Packs/Day Years [...] How often do you attend scientology or christianity Never 05/12/2021 services? Do you [...] have completed or the highest Young, MEd, ELECTROLYSIS OPERATOR, ERNIE) degree you have received? Sex Assigned at Date Recorded Male 05/27/2018 8:52 AM CDT documented as of this encounter Plan of Treatment Scheduled Referrals Name Type Priority Associated Order Schedule Diagnoses Transplant - Outpatient Referral Routine Diabetes Mellitus Exp ected: Diabetes education Type 2 With consult (clinic) Diabetic Chronic (Approx imate), Kidney Disease Expires: (HCC) 05/20/2024 documented as of this encounter Visit Diagnoses Diagnosis Diabetes Mellitus Type 2 With Diabetic C hronic Kidney Disease (HCC) - Primary documented in this encounter Care Teams Used Car Make Ready Worker Relationship Specialty Start Date End Date [facility] Medicine [place] [address] [place], [place] [address] documented as of this encounter
--- OUTSIDE RECORDS SUMMARY | 2022-08-23 10:00 | XMS_ITS | Encounter Summary ---
:1965 Author Organization [facility] Address [address] [place] [address] Care Team Providers Name Role Phone Unavailable Primary Care Provider Unavailable Reason for Visit Reason Comments Tacrolimus Adjustment Protocol Encounter Details Date Type Department Care Team Description 04/22/2021 Clinical Joey [place]ung [facility] [place] [facility] for Brenda A, Adjustment Transplantation and R.Karissa, C.C.T. C. Protocol Clinical Regeneration [address] [facility] [address] [place] [address] [place], [place] (Work) [phone] Social History Tobacco Use Types Packs/Day Years Used Date Smoking Tobacco: Never Smokeless Tobacco: Never Alcohol Habits Answer Date Recorded How often do you have a drink containing 4 or more times a w [place] 05/12/2021 alcohol? How many drinks [...] 05/12/2021 relatives? How often do you attend gnosticism or anabaptist Never 05/12/2021 services? Do you belong to any clubs or organizations such No 05/12/2021 as gnosticism groups, unions, fraternal or athletic groups, or [...] have completed or the highest Young, MEd, DIVISION HEAD, ERNIE) degree you have received? Sex Assigned at Date Recorded Male 05/27/2018 8:52 AM CDT documented as of this encounter Miscellaneous Notes Telephone Encounter - Brenda Shepherd R.N., C.C.T.C. - 04/22/2021 4:40 PM CDT Tacrolimus level within goal range of 6-8, per Tacrolimus Adjustment Protocol no dose change recommended. Current Tacrolimus dose 2 mg twice a day . Continue monitoring every 3 months. documented in this encounter Plan of Treatment Not on filedocumented as of this encounter Visit Diagnoses Not on filedocumented in this encounter Care Teams Technical Service Engineer Relationship Specialty Start Date End Date [facility] [place] [address] [place], [place] [address] documented as of this encounter
--- OUTSIDE RECORDS SUMMARY | 2022-08-23 10:00 | XMS_ITS | Encounter Summary ---
:1965 Author Organization [facility] Address [address] [place] [address] Care Team Providers Name Role Phone Unavailable Primary Care Provider Unavailable Reason for Visit Transplant (Routine) - Closed Specialty Diagnoses / Procedures Referred By Contact Refer red To Contact Transplant Surgery / Diagnoses Diabetes Mellitus Type 2 With Diabetic Chronic Kidney Disease (HCC) [facility] [place] [address] [place] [address] Referral ID Status Reason Start Date Expiration Date Visits Requ ested Visits Authorized [id number] Closed 05/20/2021 05/20/2022 1 1 Encounter Details Date Type Department Care Team Description 05/25/2021 Telemedicine Lupe Crow M.D. 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 How many drinks containing alcohol [...] How often do you attend spiritism or confucianist Never 05/12/2021 services? Do you belong to [...] have completed or the highest Young, MEd, ELECTRIC MOTOR AND GENERATOR ASSEMBLER, ERNIE) degree you have received? Sex Assigned at Date Recorded Male 05/27/2018 8:52 AM CDT documented as of this encounter Progress Notes Karishma Santiago, RKgN., CDE - 05/25/2021 3:00 PM CDT REFERRAL Josette Hannon M.D. DEMOGRAPHIC INFORMATION Patient Name: Tyler Morocho Age/ Sex: 55 y.o. male Date of : 1965 Address: [address] [place] [phone] Service Date/ Time: 05/25/2021 15:35 CDT Diabetes Education: I have been asked to see Tyler Morocho, and his Татьяна Paul for discussion of Freestyle Alana CGM. This visit was conducted as a non face to face Video Visit Transplant: Kidney transplant 05/22/2011 Diabetes history: He has had Type 2 back in 2017 per lab results. Recently, fasting glucose is 119 and A1c is 5.8% Meter: He has a meter that he has been doing finger sticks with. Would prefer to use the Freestyle Alana for monitoring. Other: Discussed the option of using Freestyle's FREE alana for 2 wks to determine if monitoring is necessary while starting Metformin. Rx for 1 Alana 14 day kit was sent to [facility]. He has the voucher for the free kit. If he prefers this, then a new Rx will need to be created. Also, sent him the ID code to join [employer] so his readings could be reviewed. Greater than 50% of time spent in counseling/coordination of care. Contact information offered to them, Kidney/Pancreas Transplant # Sunday through Sunday 8am to 4pm. documented in this encounter Plan of Treatment Not on filedocumented as of this encounter Visit Diagnoses Diagnosis Diabetes Mellitus Type 2 With Diabetic C hronic Kidney Disease (HCC) documented in this encounter Care Teams Auger Mill Operator Relationship Specialty Start Date End Date [facility] Laboratory Medicine [place] [address] [place], [place] [address] documented as of this encounter
--- OUTSIDE RECORDS SUMMARY | 2022-08-23 10:00 | XMS_ITS | Encounter Summary ---
:1965 Author Organization [facility] Address [address] [place] [address] Care Team Providers Name Role Phone Unavailable Primary Care Provider Unavailable Encounter Details Date Type Department Care Team Description 05/16/2021 Hospital Encounter Department of Kukla, Transpla nt Renal (HCC); Laboratory Medicine High Odette Finch Medication and PathologyJoel [facility] in [address] [place] [address] [place] [address] [place], [place] [phone] (Work) [phone] Social History Tobacco Use Types Packs/Day Years [...] 05/12/2021 relatives? How often do you attend islam or mu-ism Never 05/12/2021 services? Do you belong to any clubs or organizations such No 05/12/2021 as islam groups, unions, fraternal or athletic groups, or [...] have completed or the highest Young, MEd, STAFF PSYCHIATRIST, ERNIE) degree you have received? Sex Assigned [...] Associated Comments Diagnosis TACROLIMUS LEVEL, B Routine 05/16/2021 8:05 AM Transplant Mary l Results for this CDT (HCC) procedure are in High Risk the results Medication section. documented in this encounter Results Tacrolimus, B (05/16/2021 8:05 AM CDT) athologist Signature Tacrolimus, B 6.1 5.0-15.0 05/16/2021 [facility] (Trough) 12:46 PM CDT ng/mL Comment: ----ADDITIONAL INFORMATION---- Target steady-state trough concentration s vary depending on the type of transplant, concomitant immunosuppressio n, clinical/institutional protocols, and time post-transplant. Results should be interpreted in conjunction with this clinical information and any physic al signs/symptoms of rejection/toxicity. Testing performed by Liquid Chromatograp hy-Tandem Mass Spectrometry (LC-MS/MS). This test was developed and its performa nce characteristics determined by [facility] in a manner consistent with CLIA requirements. This test has not been cleared or approved by the [place] Marg[place] d and Drug Administration. Specimen Anatomical Collection Method Collection Time Receive d Time (Source) Location / / Volume Laterality Blood (Blood, 05/16/2021 8:05 AM 05/16/20 9:59 Venous) CDT AM CDT Josette Hannon M.D. LAB BLOOD NON ADD-ON Performing Organization Address City/State/ZIP Code Phon e Number [facility] [address] [place] [phone] SUPPORT CENTER [facility] [place] [address] Laboratory Medicine and Pathology [address] [place] documented in this encounter Visit Diagnoses Diagnosis Transplant Renal (HCC) High Risk Medication documented in this encounter Care Teams Medical Social Worker Relationship Specialty Start Date End Date [facility] of Laboratory Medicine [place] [address] [place], [place] [address] documented as of this encounter
--- OUTSIDE RECORDS SUMMARY | 2022-08-23 10:00 | XMS_ITS | Encounter Summary ---
:1965 Author Organization [facility] Address [address] [place] [address] Care Team Providers Name Role Phone Unavailable Primary Care Provider Unavailable Encounter Details Date Type Department Care Team Description 06/01/2021 Hospital Encounter Department of Bryce, Gail [place] Renal Laboratory Medicine MTereso (HCC) and Pathology, [address] [place] [address], in [facility] [phone] [place] [phone] [place] [address] (Work) [place], [place] [phone] [address] (Fax) [phone] Social History Tobacco Use Types Packs/Day Years Used Date Smoking Tobacco: Never Smokeless Tobacco: Never Alcohol Use Standard Drinks/Week Comments Yes 6 (1 standard drink = 0.6 oz pure alcoho l) Alcohol Habits Answer Date Recorded How often do you have a drink containing 4 or more times a w [place] 05/12/2021 alcohol? How many drinks containing [...] 05/12/2021 relatives? How often do you attend yazidism or moravian Never 05/12/2021 services? Do you belong to any clubs or organizations such No 05/12/2021 as yazidism groups, unions, fraternal or athletic groups, or [...] have completed or the highest Young, MEd, CARE GIVER, ERNIE) degree you have received? Sex Assigned [...] Associated Comments Diagnosis TACROLIMUS LEVEL, B Routine 08/15/2021 8:10 AM Transplant Mary l Results for this BIOSTATISTICS MANAGER (HCC) procedure are i n the results section. documented in this encounter Results Tacrolimus, B (08/15/2021 8:10 AM BIOSTATISTICS MANAGER) athologist Signature Tacrolimus, B 5.8 5.0-15.0 08/16/2021 [facility] (Trough) 4:48 PM BIOSTATISTICS MANAGER ng/mL Comment: ----ADDITIONAL INFORMATION---- Target steady-state trough concentration s vary depending on the type of transplant, concomitant immunosuppressio n, clinical/institutional protocols, and time post-transplant. Results should be interpreted in conjunction with this clinical information and any physic al signs/symptoms of rejection/toxicity. Testing performed by Liquid Chromatograp hy-Tandem Mass Spectrometry (LC-MS/MS). This test was developed and its performa nce characteristics determined by [facility] in a manner consistent with CLIA requirements. This test has not been cleared or approved by the [place]. Marg[place] d and Drug Administration. Specimen Anatomical Collection Method Collection Time Receive d Time (Source) Location / / Volume Laterality Blood (Blood, 08/15/2021 8:10 AM 08/16/20 1:59 Venous) BIOSTATISTICS MANAGER PM BIOSTATISTICS MANAGER Howard Wu M.D. LAB BLOOD NON ADD-ON Performing Organization Address City/State/ZIP Code Phon e Number [facility] [address] [place] [address] SUPPORT CENTER [facility] [place] [address] Laboratory Medicine and Pathology [address] [place] documented in this encounter Visit Diagnoses Diagnosis Transplant Renal (HCC) documented in this encounter Care Teams Deputy Sheriff Custody Relationship Specialty Start Date End Date [facility] of Laboratory Medicine [place] [address] [place], [place] [address] documented as of this encounter
--- OUTSIDE RECORDS SUMMARY | 2022-08-23 10:00 | XMS_ITS | Encounter Summary ---
:1965 Author Organization [facility] Address [address] [place] [address] Care Team Providers Name Role Phone Unavailable Primary Care Provider Unavailable Encounter Details Date Type Department Care Team Description 05/25/2021 Orders Only Joey Gordillo Bryce, Larry Staton [facility] [place], [facility] Renal Center for M.D. ([facility]) Transplantation and [address] [place] [address] in [place], [place] [address] [place] [address] [place] [address] (Work) [phone] Social History Tobacco Use Types Packs/Day Years Used Date Smoking Tobacco: Never Smokeless Tobacco: Never Alcohol Use Standard Drinks/Week Comments Yes 6 (1 standard drink = 0.6 oz pure alcoho l) Alcohol Habits Answer Date Recorded How often do you have a drink containing 4 or more times a w nez perce 05/12/2021 alcohol? How many drinks containing alcohol [...] 05/12/2021 relatives? How often do you attend sikhism or nondenominational Never 05/12/2021 services? Do you belong to any clubs or organizations such No 05/12/2021 as sikhism groups, unions, fraternal or athletic groups, or [...] have completed or the highest Young, MEd, CHIP TESTER, ERNIE) degree you have received? Sex Assigned at Date Recorded Male 05/27/2018 8:52 AM CDT documented as of this encounter Plan of Treatment Not on filedocumented as of this encounter Results Tacrolimus, B (08/15/2021 8:10 AM SIGN WIRER) athologist Signature Tacrolimus, B 5.8 5.0-15.0 08/16/2021 [facility] (Trough) 4:48 PM SIGN WIRER ng/mL Comment: ----ADDITIONAL INFORMATION---- Target steady-state trough concentration s vary depending on the type of transplant, concomitant immunosuppressio n, clinical/institutional protocols, and time post-transplant. Results should be interpreted in conjunction with this clinical information and any physic al signs/symptoms of rejection/toxicity. Testing performed by Liquid Chromatograp hy-Tandem Mass Spectrometry (LC-MS/MS). This test was developed and its performa nce characteristics determined by [facility] in a manner consistent with CLIA requirements. This test has not been cleared or approved by the [place]. [place] d and Drug Administration. Specimen Anatomical Collection Method Collection Time Receive d Time (Source) Location / / Volume Laterality Blood (Blood, 08/15/2021 8:10 AM 08/16/20 21 1:59 Venous) SIGN WIRER PM SIGN WIRER Howard Wu M.D. LAB BLOOD NON ADD-ON Performing Organization Address City/State/ZIP Code Phon e Number [facility] [address] [place], [place] [address] SUPPORT CENTER [facility] [place] [address] Laboratory Medicine and Pathology [address] [place] documented in this encounter Visit Diagnoses Diagnosis Transplant Renal (HCC) documented in this encounter Care Teams Operations Planner Relationship Specialty Start Date End Date [facility] Medicine [place] [address] [place], [place] [address] documented as of this encounter
--- OUTSIDE RECORDS SUMMARY | 2022-08-23 10:00 | XMS_ITS | Encounter Summary ---
:1965 Author Organization [facility] Address [address] [place] [address] Care Team Providers Name Role Phone Unavailable Primary Care Provider Unavailable Encounter Details Date Type Department Care Team Description 05/13/2021 Orders Only Joey Jasmine, Trans plant Renal (HCC) (Primary Dx); Center for Transplantation Singh harris R.N. High Risk Medication and Clinical Regeneration [address] [facility] in [place], [place] [address] [facility] [address] [place] [address] [phone] Social History Tobacco Use Types Packs/Day Years Used Date Smoking Tobacco: Never Smokeless Tobacco: Never Alcohol Habits Answer Date Recorded How often do you have a drink containing 4 or more times a w [place]ana 05/12/2021 alcohol? How many drinks containing alcohol [...] How often do you attend spiritism or jainism Never 05/12/2021 services? Do you belong to [...] completed or the highest Young, MEd, RN OSTOMY, ERNIE) degree you have received? Sex Assigned at Date Recorded Male 05/27/2018 8:52 AM CDT documented as of this encounter Plan of Treatment Not on filedocumented as of this encounter Results Tacrolimus, B (05/16/2021 8:05 AM CDT) athologist Signature Tacrolimus, B 6.1 5.0-15.0 05/16/2021 [facility] (Trough) 12:46 PM CDT ng/mL Comment: ----ADDITIONAL [...] performa nce characteristics determined by [facility] in a manner consistent with CLIA requirements. This test has not been cleared or approved by the [place]. [place] d and Drug Administration. Specimen Anatomical Collection Method Collection Time Receive d Time (Source) Location / / Volume Laterality Blood (Blood, 05/16/2021 8:05 AM 05/16/20 21 9:59 Venous) CDT AM CDT Josette Hannon M.D. LAB BLOOD NON ADD-ON Performing Organization Address City/State/ZIP Code Phon e Number [facility] [address] [place], [place] [address] SUPPORT CENTER [facility] [place] [address] Laboratory Medicine and Pathology [address] [place] documented in this encounter Visit Diagnoses Diagnosis Transplant Renal (HCC) - Primary High Risk Medication documented in this encounter Care Teams Occupational Health Nursing Director Relationship Specialty Start Date End Date [facility] [place] [address] [place], [place] [address] documented as of this encounter
--- OUTSIDE RECORDS SUMMARY | 2022-08-23 10:00 | XMS_ITS | Encounter Summary ---
:1965 Author Organization [facility] Address [address] [place] [address] Care Team Providers Name Role Phone Unavailable Primary Care Provider Unavailable Reason for Visit Reason Comments Transplant Recipient Follow-up Appointment Request (Routine) - Closed Specialty Diagnoses / Procedures Referred By Contact Refer red To Contact Transplant Kidney Pancreas Referral ID Status Reason Start Date Expiration Date Visits Requ ested Visits Authorized [id number] Closed 02/22/2021 02/22/2022 1 1 Encounter Details Date Type Department Care Team Description 05/16/2021 Office Visit Joey Castaneda, [facility] for Transplantation Josette ( [facility]) (Primary Dx) and Clinical Regeneration [facility] in [facility] 200 [facility] [address] [place] [phone] [phone] Social History Tobacco Use Types Packs/Day Years Used Date Smoking Tobacco: Never Smokeless Tobacco: Never Alcohol Use Standard Drinks/Week Comments Yes 6 (1 standard drink = 0.6 oz pure alcoho l) Alcohol Habits Answer Date Recorded How often do you have a drink containing 4 or more times a w [place] 05/12/2021 alcohol? How many drinks containing alcohol [...] 05/12/2021 relatives? How often do you attend jainism or bahai Never 05/12/2021 services? Do you belong to any clubs or organizations such No 05/12/2021 as jainism groups, unions, fraternal or athletic groups, or [...] have completed or the highest Young, MEd, ANSWERING SERVICE OPERATOR, ERNIE) degree you have received? Sex Assigned at Date Recorded Male 05/27/2018 8:52 AM CDT documented as of this encounter Last Filed Vital Signs Vital Sign Reading Time Taken Comments Blood Pressure 104/70 05/16/2021 1:20 PM CDT Pulse - - Temperature 36.8 ??C (98.2 ??F) 05/16/2021 1:20 PM CDT Respiratory Rate - - Oxygen Saturation - - Inhaled Oxygen Concentration - - Weight - - Height - - Body Mass Index - - documented in this encounter Progress Notes Josette Hannon M.D. - 05/16/2021 1:30 PM CDT KIDNEY TRANSPLANT FOLLOW UP VISIT REASON FOR VISIT: Tyler Morocho is a 55 y.o. male who presents for kidney transplant and immunosuppression management follow up. HISTORY OF PRESENT ILLNESS: 54-year-old gentleman, with past medical history significant for [...] Cellcept dose. His creatinine remains stable at 1.6 mg/dl (baselin 1.4-1.6 mg/dl) He did not have any major health events or changes over the last year. REVIEW OF SYSTEMS: A comprehensive review of systems was obtained and was otherwise negative except what mentioned in the HPI. Answers for HPI/ROS submitted by the patient were reviewed by me when available. PAST MEDICAL AND SURGICAL HISTORIES: Medical records reviewed by me and discussed with the patient and noted below. Past Medical History: Diagnosis Date ??? Hyperlipidemia ??? Hypertension NOS ??? Renal Disease Past Surgical History: Procedure Laterality Date ??? ANAL SPHINCTEROTOMY N/A 11/14/2011 >Left lateral internal sphincterotomy. ??? ORGAN TRANSPLANT 04/2011 ??? TRANSPLANT KIDNEY - RECIPIENT OF LIVING DONOR WITH BACK TABLE PREP KIDNEY ALLOGRAFT N/A 05/22/2011 >1. Living related donor kidney transplant. 2. Standard back table preparation of renal allograft. ??? ULTRASOUND TRANSRECTAL WITH BIOPSY GUIDED PROSTATE N/A 08/22/2007 >Transrectal diagnostic echography with needle biopsies of the prostate under ultrasound guidance in the ??? ULTRASOUND TRANSRECTAL WITH BIOPSY GUIDED PROSTATE N/A 11/17/2008 >Transrectal diagnostic echography with needle biopsies of the prostate under ultrasound guidance in the ??? ULTRASOUND TRANSRECTAL WITH BIOPSY GUIDED PROSTATE N/A 07/21/2009 >Transrectal diagnostic echography with needle biopsies of the prostate under ultrasound guidance in the CURRENT MEDICATIONS: Current Outpatient Medications on File Prior to Visit Medication Sig Dispense Refill ??? alendronate (FOSAMAX) 70 mg tablet TAKE 1 TABLET (70 MG TOTAL) BY MOUTH ONCE A WEEK. 12 tablet 3 ??? aspirin [address] tablet Take 81 mg by mouth daily. ??? atorvastatin (LIPITOR) 20 mg tablet Take 1 tablet (20 mg total) by mouth daily. 90 tablet 3 ??? calcium carbonate-vit D3-min 600 mg calcium- 400 unit tablet Take 2 tablets by mouth. 6 ??? ketoconazole (NIZORAL) 2 % shampoo Apply 1 application topically 3 (three) times a week. Apply to damp skin, lather, leave on 5 minutes, and rinse. May use more often during flares 120 mL 3 ??? Lactobacillus acidophilus (PROBIOTIC ORAL) Take 1 tablet by mouth daily. ??? mycophenolate (CELLCEPT) 250 mg capsule TAKE 2 CAPSULES BY MOUTH IN THE MORNING AND 1 CAPSULE BYMOUTH IN THE PM TEVA BRAND 270 capsule 3 ??? omega-3 fatty acids-fish oil (FISH OIL) 300-1,000 mg capsule Take 2 capsules by mouth daily. ??? predniSONE (DELTASONE) 5 mg tablet TAKE 1 TABLET BY MOUTH ONCE DAILY. 90 tablet 3 ??? tacrolimus (PROGRAF) 1 mg capsule Take 2 capsules (2 mg total) by mouth 2 (two) times a day. 360capsule 3 ??? denosumab (PROLIA) 60 mg/mL syringe Inject 1 mL (60 mg total) under the skin every 6 (six) months. (Patient not taking: Reported on 05/16/2021 ) 1 mL 1 ??? multivitamin tablet Take 1 tablet by mouth daily. No current facility-administered medications on file prior to visit. PHYSICAL EXAM: BP 104/70 Temp 36.8 ??C (Tympanic) , There is no height or weight on file to calculate BMI. GENERAL APPEARANCE: alert and no acute distress [...] IgA nephropathy per last biopsy in 2016. Patient decided against conversion of belatacept at this point, however, will continue to discuss this option following his blood glucose. 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 We discussed that prednisone withdrawal may not be a good option due to the potential risk of recurrent IgA. I will not make any changes at this point. #4 Osteoporosis Continue Fosamax. Check bone density next year. #5 Secondary hyperparathyroidism PTH is within normal range. We will reduce vitamin D to 1 tablet TID. #6 History of gout, asymptomatic PLAN: 1. Monitor fasting/postprandial blood sugars, submit 1-weeks' worth readings for review. 2. Continue Prograf, CellCept, and prednisone at the current doses. 3. Reduce calcium/vitamin D to 1 tablet daily. 4. Labs q. 2 months. 5. Followup visit in 1 year. 6. Bone density in 1-year . We have spent the majority of the visit here discussing the new-onset diabetes of the transplant. Patient has elevated fasting blood sugars. His glucose levels are as high as 130s to 140s in the morning. His hemoglobin A1c was also elevated with the last one April of 2021 of 5.8%. Patient has implemented significant dietary restrictions and he is exercising. His current BMI is 21.6. We discussed long-term impact of prediabetes and new-onset diabetes of the transplant, patient allograft survivor. I believe that this should be appropriately addressed. We have discussed different options including initiation of metformin, including side effects, as well as a potential conversion to belatacept. We would start off from obtaining fasting as well as 2 hours postprandial blood glucose, and I will review that. Based on that, we will decide on further management. Of note, his fasting glucose is 119 mg/dL today. We also discussed the diagnostic osteoporosis; this was seen on his last bone density. The patient was on Fosamax and that was appropriately interrupted and then restarted approximately 2 years ago. Hehas normal vitamin D levels and PTH is within normal range. Prolia was discussed with him at one point but he has decided against it. Answers for HPI/ROS submitted by the patient on 05/12/2021 No general issues: Yes No eye issues: Yes No ENT issues: Yes No heart issues: Yes No respiratory issues: Yes No GI issues: Yes No muscle/bone issues: Yes Skin rash: Yes No neurologic issues: Yes No mental health issues: Yes No blood/lymph issues: Yes No urinary/reproductive issues: Yes documented in this encounter Plan of Treatment Not on filedocumented as of this encounter Procedures Procedure Name Priority Date/Time Associated Diagnosis Comme nts PROSTATE-SPECIFIC Routine 05/13/2021 8:15 AM Transplant Renal Results for this AG (PSA) SCRN, S CDT ([facility]) procedure a re in the results section. documented in this encounter Results PSA (Prostate-Specific Antigen) Screen (05/13/2021 8:15 AM CDT) P athologist Signature Prostate-Specif 3.2 <=3.5 ng/mL 05/16/2021 DTL ic Ag 4:03 PM CDT Comment: ----ADDITIONAL INFORMATION---- The testing [...] Location / / Volume Laterality Blood (Blood, 05/13/2021 8:15 AM 05/16/20 2:57 Venous) CDT PM CDT Josette Hannon M.D. LAB BLOOD ADD-ON Performing Organization Address City/State/ZIP Code Phon e Number [facility] [address] [place], [place] [address] [facility] [place] [address] [facility] [address] documented in this encounter Visit Diagnoses Diagnosis Transplant Renal (HCC) - Primary documented in this encounter Care Teams Waste Water Or Water Plant Operator Relationship Specialty Start Date End Date [facility] [place] [address] [place], [place] [address] documented as of this encounter
--- OUTSIDE RECORDS SUMMARY | 2022-08-23 10:00 | XMS_ITS | Encounter Summary ---
:1965 Author Organization [facility] Address [address] [place] [address] Care Team Providers Name Role Phone Unavailable Primary Care Provider Unavailable Encounter Details Date Type Department Care Team Description 05/13/2021 [facility] Trans[facility] and Hermilo Mckeon Clinical Regeneration in [address] [place], [place] [address] [facility] [address] [place] [address] [phone] Social History Tobacco Use Types Packs/Day Years Used Date Smoking Tobacco: Never Smokeless Tobacco: Never Alcohol Habits Answer Date Recorded How often do you have a drink containing 4 or more times a w [place] 05/12/2021 alcohol? How many drinks containing alcohol [...] 05/12/2021 relatives? How often do you attend congregation or druze Never 05/12/2021 services? Do you belong to any clubs or organizations such No 05/12/2021 as congregation groups, unions, fraternal or athletic groups, or [...] have completed or the highest Young, Macy, OPERATING ROOM TECHNICIAN, ERNIE) degree you have received? Sex Assigned at Date Recorded Male 05/27/2018 8:52 AM CDT documented as of this encounter Plan of Treatment Not on filedocumented as of this encounter Visit Diagnoses Not on filedocumented in this encounter Care Teams Colored Leather Setter Relationship Specialty Start Date End Date [facility] [place] [address] [place], [place] [address] documented as of this encounter
--- OUTSIDE RECORDS SUMMARY | 2022-08-23 10:00 | XMS_ITS | Encounter Summary ---
:1965 Author Organization [facility] Address [address] [place] [address] Care Team Providers Name Role Phone Unavailable Primary Care Provider Unavailable Reason for Visit Reason Comments Tacrolimus Adjustment Protocol Encounter Details Date Type Department Care Team Description 08/17/2021 Clinical [facility] for Zabrina J, Adjustment Transplantation and R.N., C.C.T. C. Protocol Clinical Regeneration [address] [facility] [address] [address] [facility] [phone] [place], [place] (Work) [phone] Social History Tobacco Use Types Packs/Day Years Used Date Smoking Tobacco: Never Smokeless Tobacco: Never Alcohol Use Standard Drinks/Week Comments Yes 6 (1 standard drink = 0.6 oz pure alcoho l) Alcohol Habits Answer Date Recorded How often do you have a drink containing 4 or more times a w [place] 05/12/2021 alcohol? How many drinks [...] 05/12/2021 relatives? How often do you attend rastafari or caodaism Never 05/12/2021 services? Do you belong to any clubs or organizations such No 05/12/2021 as rastafari groups, unions, fraternal or athletic groups, or [...] place to sleep or slept in a assisted (including now)? Education Answer Date Recorded What is the highest level of school Master's degree (e.g., M Shonna, MS, 05/08/2019 you have completed or the highest Young, MEd, NURSE TRANSPLANT, ERNIE) degree you have received? Sex Assigned at Date Recorded Male 05/27/2018 8:52 AM CDT documented as of this encounter Miscellaneous Notes Telephone Encounter - Zabrina Marquez R.N., C.C.T.C. - 08/17/2021 9:27 AM CST Tacrolimus level within goal range of 6-8, per Tacrolimus Adjustment Protocol no dose change recommended. Current Tacrolimus dose 2 mg twice a day . Other lab results received and reviewed, stable trends, continue monitoring every 2 months. NITIES INSTRUCTOR documented in this encounter Plan of Treatment Not on filedocumented as of this encounter Visit Diagnoses Not on filedocumented in this encounter Care Teams Milieu Counselor Relationship Specialty Start Date End Date [facility] [place] [address] [place], [place] [address] documented as of this encounter
--- OUTSIDE RECORDS SUMMARY | 2022-08-23 10:00 | XMS_ITS | Encounter Summary ---
:1965 Author Organization [facility] Address [address] [place] [address] Care Team Providers Name Role Phone Unavailable Primary Care Provider Unavailable Encounter Details Date Type Department Care Team Description 02/23/2021 Orders Only Joey Gordillo Bryce, Larry Staton [facility] for M.D. ([facility]) Transplantation and [address] [place] [address] in [place], [place] [address] [place] [address] [place] [address] (Work) [phone] Social History Tobacco Use Types Packs/Day Years Used Date Smoking Tobacco: Never Smokeless Tobacco: Never Alcohol Habits Answer Date Recorded How often do you have a drink containing 4 or more times a w [place] 05/12/2021 alcohol? How many drinks containing alcohol [...] 05/12/2021 relatives? How often do you attend uatsdin or orthodoxy Never 05/12/2021 services? Do you belong to any clubs or organizations such No 05/12/2021 as uatsdin groups, unions, fraternal or athletic groups, or [...] have completed or the highest Young, MEd, FORMING ROLL OPERATOR, ERNIE) degree you have received? Sex Assigned at Date Recorded Male 05/27/2018 8:52 AM CDT documented as of this encounter Plan of Treatment Not on filedocumented as of this encounter Results Tacrolimus, B (04/20/2021 7:45 AM CDT) athologist Signature Tacrolimus, B 7.6 5.0-15.0 04/22/2021 [facility] ([place]) 10:14 AM CDT ng/mL Comment: ----ADDITIONAL INFORMATION---- Target steady-state [...] Location / / Volume Laterality Blood (Blood, 04/20/2021 7:45 AM 04/22/20 21 6:53 Venous) CDT AM CDT Resulting Agency Comment Mailed In Specimen Howard Wu M.D. LAB BLOOD NON ADD-ON Performing Organization Address City/State/ZIP Code Phon e Number [facility] [address] [place], [place] [address] [place] [address] Laboratory Medicine and Pathology [address] [place] documented in this encounter Visit Diagnoses Diagnosis Transplant Renal (HCC) documented in this encounter Care Teams Histology Technologist Relationship Specialty Start Date End Date [facility] [place] [address] [place], [place] [address] documented as of this encounter
--- OUTSIDE RECORDS SUMMARY | 2022-08-23 10:00 | XMS_ITS | Encounter Summary ---
:1965 Author Organization [facility] Address [address] [place] [address] Care Team Providers Name Role Phone Unavailable Primary Care Provider Unavailable Encounter Details Date Type Department Care Team Description 05/17/2021 [facility] Dick Hannon for Transplantation and M.D. Clinical Regeneration in [address] [place] [address] [place] [address] [place] [address] [phone] Social History Tobacco Use Types Packs/Day Years Used Date Smoking Tobacco: Never Smokeless Tobacco: Never Alcohol Use Standard Drinks/Week Comments Yes 6 (1 standard drink = 0.6 oz pure alcoho l) Alcohol Habits Answer Date Recorded How often do you have a drink containing 4 or more times a w [place] 05/12/2021 alcohol? How many drinks containing alcohol [...] 05/12/2021 relatives? How often do you attend rastafarian or zoroastrian Never 05/12/2021 services? Do you belong to any clubs or organizations such No 05/12/2021 as rastafarian groups, unions, fraternal or athletic groups, or [...] have completed or the highest Young, MEd, COPY CENTER ASSOCIATE, ERNIE) degree you have received? Sex Assigned at Date Recorded Male 05/27/2018 8:52 AM CDT documented as of this encounter Plan of Treatment Not on filedocumented as of this encounter Visit Diagnoses Not on filedocumented in this encounter Care Teams Settlement Agent Relationship Specialty Start Date End Date [facility] [place] [facility] [place] [address] [place], [place] [address] documented as of this encounter
--- OUTSIDE RECORDS SUMMARY | 2022-08-23 10:00 | XMS_ITS | Encounter Summary ---
:1965 Author Organization [facility] Address [address] [place] [address] Care Team Providers Name Role Phone Unavailable Primary Care Provider Unavailable Reason for Visit Reason Comments Other Florencia warner report Encounter Details Date Type Department Care Team Description 06/24/2021 Clinical Ayleen Hurtado ([employer] [facility] for alana [place] report) Transplantation and KULWANT Akhtar Clinical Regeneration [phone] in [facility]) [place] [address] [place] [address] Social History Tobacco Use Types Packs/Day Years Used Date Smoking Tobacco: Never Smokeless Tobacco: Never Alcohol Use Standard Drinks/Week Comments Yes 6 (1 standard drink = 0.6 oz pure alcoho l) Alcohol Habits Answer Date Recorded How often do you have a drink containing 4 or more times a w [place] 05/12/2021 alcohol? How many drinks containing alcohol [...] 05/12/2021 relatives? How often do you attend yarsanism or religion Never 05/12/2021 services? Do you belong to any clubs or organizations such No 05/12/2021 as yarsanism groups, unions, fraternal or athletic groups, or [...] have completed or the highest Young, MEd, SHUTTLECOCK ASSEMBLER, ERNIE) degree you have received? Sex Assigned at Date Recorded Male 05/27/2018 8:52 AM CDT documented as of this encounter Plan of Treatment Not on filedocumented as of this encounter Visit Diagnoses Not on filedocumented in this encounter Care Teams Line O Scribe Operator Relationship Specialty Start Date End Date [facility] [place] [address] [place], [place] [address] documented as of this encounter
--- OUTSIDE RECORDS SUMMARY | 2022-08-23 10:00 | XMS_ITS | Encounter Summary ---
:1965 Author Organization [facility] Address [address] [place] [address] Care Team Providers Name Role Phone Unavailable Primary Care Provider Unavailable Reason for Visit Transplant (Routine) - Closed Specialty Diagnoses / Procedures Referred By Contact Refer red To Contact Transplant Surgery / Diagnoses Transplant Renal (HCC) Nasra Montalvo, [facility] Transplant DIRECTOR SALES TRAINING, C.N.P., D.N.P. [address] [place] [phone] Referral ID Status Reason Start Date Expiration Date Visits Requ ested Visits Authorized [id number] Closed 05/04/2021 05/04/2022 1 1 Encounter Details Date Type Department Care Team Description 05/13/2021 Comprehensive Visit Department of Rosendo Burns (Primary Dx); Dermatology in [place], Keratosis Gee orrheic Inflamed; Jesus Leon, M.S. Intertrigo; [place] 200 [facility] Keratosis Seborrheic; [address] [place] [address] Dermatoheliosis; [place] [address] Angioma Howard; [phone] Transplant Renal (HCC); Immunodeficiency Due To Drugs (HCC); [phone] Screening [facility] Skin Cancer (Fax) Social History Tobacco Use Types Packs/Day Years [...] How often do you attend quaker or hindu Never 05/12/2021 services? Do you belong to [...] place to sleep or slept in a prison (including now)? Education Answer Date Recorded What is the highest level of school Master's degree (e.g., M Shonna, MS, 05/08/2019 you have completed or the highest Young, MEd, ELECTRIC TAPE SLITTER, ERNIE) degree you have received? Sex Assigned at Date Recorded Male 05/27/2018 8:52 AM CDT documented as of this encounter Consult Notes Parris Burns P.A.-Jeaneth., M.S. - 05/13/2021 9:20 AM CDT Groin rash clotremazole for 2 weeks and is better in the morning. Has not used for past 2 weeks REFERRED BY Nasra Montalvo APRN, C.N.P., D.N.P. CHIEF COMPLAINT/REASON FOR VISIT Immunosuppressed state Skin check Supervised by: Dr. Loli Wolff [phone]) Patient seen and discussed with supervising communication consultant, Dr. Loli Wolff, who evaluated the patientand concurs with the assessment and plan. HISTORY OF PRESENT ILLNESS Mr. Tyler Morocho is a pleasant 55 y.o. male who presents today for a full skin cancer screening examination. The patient has a history of a kidney transplant in 2010 and is on chronic immunosuppressive therapy with prednisone, Prograf, and CellCept. He was last seen at [facility] Dermatology on May 2020, at which time suspected subungual hematomas were noted on the fourth and fifth left toenails. The patient denies a personal or family history of skin cancer. Today, the patient has a concern on his groin. He notes a rash that has been present for a while. The patient has applied [id number]-gkg-[id number] clotrimazole for 2 weeks. He noted improvement with the use ofthe medication, and has discontinued it two weeks ago. The patient does note increased redness involving the groin when he gets out of the shower, but this improves throughout the day. He reports having a similar rash years ago. The patient states it is worse in the summer. He reports being diligent with photoprotection, as the patient wears long- sleeved clothing and wide brimmed hats often. He enjoys hiking. The patient otherwise denies new or changing cutaneous lesions. Allergies Allergen Reactions ??? No Known Allergies Other (see comments) PAST DERMATOLOGIC HISTORY Negative for skin cancer FAMILY DERMATOLOGIC HISTORY No known family history for skin cancer PHYSICAL EXAM General: Awake, alert, in no acute distress, and with appropriate affect. Eyes: No scleral injection or icterus. No eyelid abnormalities. Lymph: No lower extremity edema. Skin: I have examined the scalp, face, neck, chest, abdomen, back, groin, bilateral upper extremities, and bilateral lower extremities. Richter skin type II with evidence of dermatoheliosis on the sun-exposed areas. Involving the trunk and extremities are few skin colored to dark brown macules andpapules, with reassuring pigment patterns under dermoscopy, consistent with benign appearing nevi. Involving the trunk and extremities are few oneill-brown, waxy, stuck-on papules consistent with seborrheic keratosis. Involving the trunk are few red 1 to 3 mm dome-shaped scattered macules and papules consistent with howard angiomas. There is no pigmentation involving the left 4th and 5th toenails, making the diagnosis of subungual hematoma at his last visit most likely. Involving the left shoulder is apink waxy, slightly scaly, thin papule with erythema at the base consistent with an inflamed seborrheic keratosis (*LN2). The patient's concern involving the groin are hyperpigmented patches suspected to be postinflammatory hyperpigmentation from previous intertrigo. IMPRESSION/REPORT/PLAN #1 Skin cancer screening examination, no personal history of skin cancer #2 Immunosuppressed state, s/p kidney transplant on CellCept, Prograf, and prednisone Reviewed increased risk of skin cancer secondary to immunosuppression. Sun protection and sun avoidance were reviewed with the patient. Educational materials were provided regarding skin self-examination, the warning signs and symptoms of skin cancer, and the proper use of sunscreens. I would recommend a full skin cancer screening examination with an appropriately trained clinician every year. #3 Inflamed seborrheic keratosis, cryotherapy performed, left shoulder x1 The benign nature of the skin lesion was discussed with the patient. Cryotherapy was applied to the lesion due to inflammation present today. After explaining the procedure, discussing the associated risks, benefits, and alternatives, and obtaining verbal informed consent, the lesion(s) underwent treatment with liquid nitrogen cryotherapy inthe standard fashion. Wound care was discussed. Patient offered educational materials. #4 Intertrigo I prescribed ketoconazole 2% shampoo for the patient to use on the affected areas 2-3 times per weekto prevent flares. He may wash the affected areas with the shampoo more often during flares. This werner benign condition, that often flares with heat and sweating. I do not see any signs of tinea crurison exam. The patient may also continue to use vxoi-zyj-mxkqdry clotrimazole as needed during flares.He should return for reassessment if the condition worsens or does not improve. #5 Dermatoheliosis Sun protection and sun avoidance were reviewed with the patient. I advised the patient to use SPF 30or above. Educational materials were provided regarding skin self-examination, the warning signs andsymptoms of skin cancer, and the proper use of sunscreens. I would recommend a full skin cancer screening examination with an appropriately trained clinician yearly. #6 Benign appearing nevi The ABCDE criteria for melanoma was reviewed with the patient. None of the patient's nevi reach the clinical threshold for biopsy. I recommend continued sun protection, self-skin examinations, and observation. Should any of the patient's nevi change in size, color, texture, or shape or develop symptoms such as itching or bleeding, I recommend an immediate return visit for reassessment. #7 Howard angiomas #8 Seborrheic keratoses The benign nature of the skin lesion(s) was discussed with the patient. No treatment is required. I recommend continued observation. Should symptoms or changes develop related to this condition, I would recommend a return visit for reassessment. All questions answered. PATIENT EDUCATION Ready to learn. No apparent learning barriers were identified. Learning preferences include listening. Explained diagnosis and treatment plan; patient/guardian of patient expressed understanding of thecontent. Scribed for Parris Burns P.A.-C., M.S. by Roselyn Morocho, on 05/13/2021, 9:28 AM CDT. The document serves as a record of services personally performed by Parris Burns P.A.-C. MTg. It was created on their behalf by Roselyn Morocho, a trained medical data entry clerk. The creation of this record is based on the scribe's personal observations and the provider's statements to them. This document has been checked and approved by the attending provider. documented in this encounter Plan of Treatment Not on filedocumented as of this encounter Visit Diagnoses Diagnosis Nevi Multiple - Primary Keratosis Seborrheic Inflamed Intertrigo Keratosis Seborrheic Dermatoheliosis Angioma Howard Transplant Renal (HCC) Immunodeficiency Due To Drugs (HCC) Screening Examination Skin Cancer documented in this encounter Care Teams Park Warden Relationship Specialty Start Date End Date [facility] of Laboratory Medicine [place] [address] [place], [place] [address] documented as of this encounter
--- OUTSIDE RECORDS SUMMARY | 2022-08-23 10:00 | XMS_ITS | Encounter Summary ---
:1965 Author Organization [facility] Address [address] [place] [address] Care Team Providers Name Role Phone Unavailable Primary Care Provider Unavailable Encounter Details Date Type Department Care Team Description 04/06/2021 Hospital Encounter Department of Arnulfo Hannon Renal Laboratory Medicine Josette ([facility]) and PathologyJoel [facility], in [address] [place] [address] [place] [address] [place], [place] [phone] (Work) [phone] Social History Tobacco Use Types Packs/Day Years Used Date Smoking Tobacco: Never Smokeless Tobacco: Never Alcohol Habits Answer Date Recorded How often do you have a drink containing 4 or more times a w [place] 05/12/2021 alcohol? How many drinks containing alcohol [...] 05/12/2021 relatives? How often do you attend caodaism or mandaeism Never 05/12/2021 services? Do you belong to any clubs or organizations such No 05/12/2021 as caodaism groups, unions, fraternal or athletic groups, or [...] have completed or the highest Young, MEd, X RAY SERVICE ENGINEER, ERNIE) degree you have received? Sex Assigned at Date Recorded Male 05/27/2018 8:52 AM CDT documented as of this encounter Medications at Time of Discharge Medication Sig Dispensed Refills Start Date End Date aspirin [address] tablet Take 81 mg by mouth 0 03/2015 daily. atorvastatin (LIPITOR) Take 1 tablet (20 90 tablet 3 2017 20 mg tablet mg total) by mouth daily. calcium carbonate-vit Take 1 tablet by 0 06/30/20 15 D3-min 600 mg calcium- mouth daily. 6 400 unit tablet denosumab (PROLIA) 60 Inject 1 mL (60 mg 1 mL 1 2019 mg/mL syringe total) under the skin every 6 (six) months. Lactobacillus Take 1 tablet by 0 acidophilus (PROBIOTIC mouth daily. ORAL) multivitamin tablet Take 1 tablet by 0 03/23/2014 mouth daily. omega-3 fatty acids-fish Take 1 capsule by 0 04/26 oil 300-1,000 mg per mouth daily. capsule alendronate (FOSAMAX) 70 TAKE 1 TABLET (70 12 tablet 3 09/2408/25/2021 mg tablet MG TOTAL) BY MOUTH ONCE A WEEK. mycophenolate (CELLCEPT) TAKE 2 CAPSULES BY 270 capsule 3 08/24/2021 250 mg MOUTH IN THE capsuleIndications: MORNING AND 1 Transplant Renal (HCC) CAPSULE BY MOUTH IN THE PM TEVA BRAND predniSONE (DELTASONE) 5 TAKE 1 TABLET BY 90 tablet 3 10/2811/07/2021 mg tabletIndications: MOUTH ONCE DAILY. Transplant Renal (HCC) tacrolimus (PROGRAF) 1 Take 2 capsules (2 360 capsule 3 08/2408/24/2021 mg capsuleIndications: mg total) by mouth Transplant Renal (HCC) 2 (two) times a day. documented as of this encounter Plan of Treatment Not on filedocumented as of this encounter Procedures Procedure Name Priority Date/Time Associated Diagnosis Comme nts PROTEIN, TOTAL, 24 Routine 05/12/2021 7:30 AM Transplant Renal Results for this HR, U CDT (HCC) procedure are i n the results section. ALBUMIN, 24 HR, U Routine 05/12/2021 7:30 AM Transplant Renal Results for this CDT (HCC) procedure are i n the results section. documented in this encounter Results Albumin, 24 Hour Collection, Urine (05/12/2021 7:30 AM CDT) athologist Signature Albumin, 24 Hr, <17 <30 mg/24 h 05/13/2021 DTL U 1:05 PM CDT Comment: ----ADDITIONAL INFORMATION---- This test has been modified from the man ufacturer's instructions. Its performance characteri stics were determined by [facility] in a manner co nsistent with CLIA requirements. This test has not bee n cleared or approved by the U.S. Food and Drug Admin istration. Collection Duration 24 h 05/13/2021 9:48 AM C DT DTL Urine Volume 3325 mL 05/13/2021 9:48 AM CDT DTL Albumin Excretion Rate <12 <20 mcg/min 05/13/2021 1:05 PM CDT DTL Specimen Anatomical Collection Method Collection Time Receive d Time (Source) Location / / Volume Laterality Urine (Urine, 24 05/12/2021 7:30 AM 05/13 Hours) CDT 11:54 AM CDT Resulting Agency Comment Mailed In Specimen Josette Hannon M.D. LAB URINE ORDERABLES Performing Organization Address City/State/ZIP Code Phon e Number [facility] - [address] [place], [place] [address] [facility] [place] [address] Laboratories-[facility] [address] Protein, Total, 24 HR, Urine (05/12/2021 7:30 AM CDT) athologist Signature Total Protein, <133 <229 mg/24 05/13/2021 DTL 24 HR, U h 11:38 AM CDT Collection 24 h 05/13/2021 DTL Duration 9:48 AM CDT Urine Volume 3325 mL 05/13/2021 DTL 9:48 AM CDT Specimen Anatomical Collection Method Collection Time Receive d Time (Source) Location / / Volume Laterality Urine (Urine, 24 05/12/2021 7:30 AM 05/13 9:48 Hours) CDT AM CDT Resulting Agency Comment Mailed In Specimen Josette Hannon M.D. LAB URINE ORDERABLES Performing Organization Address City/State/ZIP Code Phon e Number [facility] - [address] [place], [place] [address] [facility] [place] [address] [facility] [address] documented in this encounter Visit Diagnoses Diagnosis Transplant Renal (HCC) documented in this encounter Care Teams Wrong Address Clerk Relationship Specialty Start Date End Date [facility] [place] [address] [place], [place] [address] documented as of this encounter
--- OUTSIDE RECORDS SUMMARY | 2022-08-23 10:00 | XMS_ITS | Encounter Summary ---
:1965 Author Organization [facility] Address [address] [place] [address] Care Team Providers Name Role Phone Unavailable Primary Care Provider Unavailable Reason for Referral Outpatient (Routine) - Closed Specialty Diagnoses / Procedures Referred By Contact Refer red To Contact Diagnoses Transplant Renal ([facility]) Josette Hannon M.D. [facility] Procedures Short renal clearance: Iothalamate (Renal Studies Unit) [address] [place] [address] Referral ID Status Reason Start Date Expiration Date Visits Requ ested Visits Authorized [id number] Closed 02/23/2021 02/23/2022 1 1 Reason for Visit Outpatient (Routine) - Closed Specialty Diagnoses / Procedures Referred By Contact Refer red To Contact Diagnoses Transplant Renal (HCC) Josette Hannon M.D. [facility] Procedures Short renal clearance: Iothalamate (Renal Studies Unit) [address] [place], [place] [address] Referral ID Status Reason Start Date Expiration Date Visits Requ ested Visits Authorized [id number] Closed 02/23/2021 02/23/2022 1 1 Encounter Details Date Type Department Care Team Description 05/16/2021 Hospital Encounter Department of Arnulfo Hannon Renal Laboratory Medicine Josette ([facility]) and PathologyJoel [facility], [address] [place] [phone] [address] [facility] [phone] [place], [place] (Work) [phone] Social History Tobacco Use Types Packs/Day Years Used Date Smoking Tobacco: Never Smokeless Tobacco: Never Alcohol Use Standard Drinks/Week Comments Yes 6 (1 standard drink = 0.6 oz pure alcoho l) Alcohol Habits Answer Date Recorded How often do you have a drink containing 4 or more times a w [place] 05/12/2021 alcohol? How many drinks containing alcohol [...] 05/12/2021 relatives? How often do you attend cheondoism or temple Never 05/12/2021 services? Do you belong to any clubs or organizations such No 05/12/2021 as cheondoism groups, unions, fraternal or athletic groups, or [...] have completed or the highest Young, MEd, TRANSPORT COORDINATOR, ERNIE) degree you have received? Sex Assigned at Date Recorded Male 05/27/2018 8:52 AM CDT documented as of this encounter Last Filed Vital Signs Vital Sign Reading Time Taken Comments Blood Pressure - - Pulse - - Temperature - - Respiratory Rate - - Oxygen Saturation - - Inhaled Oxygen Concentration - - Weight 74.6 kg (164 lb 7.4 oz) 05/16/2021 7:00 AM CDT Height 185.7 cm (6' 1.11) 05/16/2021 7:00 AM CDT Body Mass Index 21.63 05/16/2021 7:00 AM CDT documented in this encounter Medications [...] for 1 Occurrences Iothalamate (Renal (HCC) starting 05/16/2021 Studies Unit) until 05/16/20 21 documented as of this encounter Procedures Procedure Name Priority Date/Time Associated Comments Diagnosis IOTHALAMATE, Routine 05/16/2021 7:26 AM Results f or this GLOMERULAR CDT procedure are i n FILTRATION RATE, P the resul ts section. documented in this encounter Results (ABNORMAL) Iothalamate, Glomerular Filtration Rate (05/16/2021 7:26 AM CDT) P athologist Signature Uncorrctd 61 mL/min 05/16/2021 VAN Iothal Cl 3:57 PM CDT Corrctd Iothal 53 (L) 70 - 124 05/16/2021 VAN Cl mL/min/BSA 3:57 PM CDT Comment: ----ADDITIONAL INFORMATION---- This test was developed and its performa nce characteristics determined by [facility] in a manner consistent with CLIA requirements. This test has not been cleared or approved by the U.S. Margarita d and Drug Administration. Specimen Anatomical Collection Method Collection Time Receive d Time (Source) Location / / Volume Laterality Varies (Blood, 05/16/2021 7:26 AM 021 9:30 Venous) CDT AM CDT Narrative [facility] [place] - 05/16/2021 3:57 PM CDT Specimen Information: Specimen ID: [id number] Specimen Type: Varies Specimen Collection Start Date: 05/16/20 ??7:26 AM Specimen Received Date: 05/16/2021 ??9:3 0 AM Specimen ID: [id number] Specimen Type: Varies Specimen Collection Start Date: 05/16/20 ??8:29 AM Specimen Received Date: 05/16/2021 ??9:3 0 AM Specimen ID: [id number] Specimen Type: Varies Specimen Collection Start Date: 05/16/20 ??9:16 AM Specimen Received Date: 05/16/2021 ??9:3 0 AM Specimen ID: [id number] Specimen Type: Varies Specimen Collection Start Date: 05/16/20 ??8:32 AM Specimen Received Date: 05/16/2021 ??9:3 0 AM Specimen ID: [id number] Specimen Type: Varies Specimen Collection Start Date: 05/16/20 ??9:20 AM Specimen Received Date: 05/16/2021 ??9:3 0 AM Josette Hannon M.D. LAB BLOOD NON ADD-ON Performing Organization Address City/State/ZIP Code Phon e Number [facility] - [address] [place], [place] [address] [place] [address] Laboratories-[facility] [address] documented in this encounter Visit Diagnoses Diagnosis Transplant Renal (HCC) documented in this encounter Administered Medications Inactive Administered Medications - up to 3 most recent administrations Medication Order MAR Action Action Date Dose Rate Site iothalamate meglumine 30 Given 05/16/2021 7:30 AM 1 mL Left Upper Arm % injection 1 mL (CONRAY CDT (Back) 30) 1 mL, subcutaneous, Once, On 05/16/21 at 0730, For 1 dose documented in this encounter Care Teams Configuration Management Analyst Relationship Specialty Start Date End Date [facility] [place] [address] [place], [place] [address] documented as of this encounter
--- OUTSIDE RECORDS SUMMARY | 2022-08-23 10:00 | XMS_ITS | Encounter Summary ---
:1965 Author Organization [facility] Address [address] [place] [address] Care Team Providers Name Role Phone Unavailable Primary Care Provider Unavailable Reason for Visit Reason Comments Med Refill Encounter Details Date Type Department Care Team Description 08/23/2021 Refill Division of Endocrinology in Deejay Cook M.D. Med Refill [place], [place] [address] [facility] [address] [place] [phone] (Wo rk) Social History Tobacco Use Types Packs/Day Years Used Date Smoking Tobacco: Never Smokeless Tobacco: Never Alcohol Use Standard Drinks/Week Comments Yes 6 (1 standard drink = 0.6 oz pure alcoho l) Alcohol Habits Answer Date Recorded How often do you have a drink containing 4 or more times a w [place] 05/12/2021 alcohol? How many drinks containing alcohol [...] 05/12/2021 relatives? How often do you attend anabaptist or restoration Never 05/12/2021 services? Do you belong to any clubs or organizations such No 05/12/2021 as anabaptist groups, unions, fraternal or athletic groups, or [...] have completed or the highest Young, MEd, WIRE FRAME LAMPSHADE MAKER, ERNIE) degree you have received? Sex Assigned at Date Recorded Male 05/27/2018 8:52 AM CDT documented as of this encounter Miscellaneous Notes Telephone Encounter - Radha Salgado R.N., YEN - 08/25/2021 9:52 AM COMPENSATION AND BENEFITS ANALYST Prescription renewal request did not meet nurse protocol because: patient has not been seen within the past 12 months Protocol utilized: Prescription Renewal Request for Medications: Division of Endocrinology, Diabetes, Metabolism and Nutrition. Electronically signed by Radha Salgado R.N., [facility] at 08/25/2021 9:54 AM COMPENSATION AND BENEFITS ANALYST documented in this encounter Plan of Treatment Not on filedocumented as of this encounter Visit Diagnoses Not on filedocumented in this encounter Care Teams Stamp Clerk Relationship Specialty Start Date End Date [facility] [place] [address] [place], [place] [address] documented as of this encounter
--- OUTSIDE RECORDS SUMMARY | 2022-08-23 10:00 | XMS_ITS | Encounter Summary ---
:1965 Author Organization [facility] Address [address] [place] [address] Care Team Providers Name Role Phone Unavailable Primary Care Provider Unavailable Reason for Visit Reason Comments External Lab Entry 08/16/2021 Encounter Details Date Type Department Care Team Description 08/17/2021 Clinical Joey Gordillo Transplant, Airplane Pilot Helper al Lab Entry Communication Center for Coordinator, (08/16/2021) Transplantation and R.N. Clinical Regeneration in [facility] [place] [address] [place] [address] Social History Tobacco Use Types Packs/Day Years Used Date Smoking Tobacco: Never Smokeless Tobacco: Never Alcohol Use Standard Drinks/Week Comments Yes 6 (1 standard drink = 0.6 oz pure alcoho l) Alcohol Habits Answer Date Recorded How often do you have a drink containing 4 or more times a w [place] 05/12/2021 alcohol? How many drinks containing alcohol [...] How often do you attend methodist or confucianist Never 05/12/2021 services? Do you [...] place to sleep or slept in a detention (including now)? Education Answer Date Recorded What is the highest level of school Master's degree (e.g., Beatrice Kilpatrick, , 05/08/2019 you have completed or the highest Young, MEd, LOCK SETTER, ERNIE) degree you have received? Sex Assigned at Date Recorded Male 05/27/2018 8:52 AM CDT documented as of this encounter Plan of Treatment Not on filedocumented as of this encounter Procedures Procedure Name Priority Date/Time Associated Comments Diagnosis EXTP TRANSPLANT Routine 08/16/2021 8:08 AM Result s for this KIDNEY/PANCREAS - SYSTEMS LIBRARIAN procedure are in URINE, EXTERNAL LAB the resu lts RESULTS section. EXTP TRANSPLANT Routine 08/16/2021 8:08 AM Result s for this KIDNEY/PANCREAS - SYSTEMS LIBRARIAN procedure are in BLOOD, EXTERNAL LAB the resu lts RESULTS section. documented in this encounter Results Transplant Kidney/Pancreas - Urine, External Lab Results (08/16/2021 8:08 AM SYSTEMS LIBRARIAN) athologist Signature EXT 8 Albumin/Creatin ine Ratio Specimen (Source) Anatomical Collection Method Collection Time Re ceived Time Location / / Volume Laterality Urine 08/16/2021 8:08 AM SYSTEMS LIBRARIAN Narrative This result has an attachment that is no t available. Historical Provider LAB URINE ORDERABLES Transplant Kidney/Pancreas - Blood, External Lab Results (08/16/2021 8:08 AM SYSTEMS LIBRARIAN) athologist Signature EXT Leukocytes 3.8 EXT Absolute 2.4 Neutrophils EXT Hemoglobin 14.9 EXT Platelet 171 Count EXT Glucose 146 EXT Creatinine 1.4 mg/dL EXT Potassium 4.7 Specimen (Source) Anatomical Collection Method Collection Time Re ceived Time Location / / Volume Laterality Blood 08/16/2021 8:08 AM SYSTEMS LIBRARIAN Narrative This result has an attachment that is no t available. Historical Provider LAB BLOOD NON ADD-ON documented in this encounter Visit Diagnoses Not on filedocumented in this encounter Care Teams Printing Film Stripper Relationship Specialty Start Date End Date [facility] [place] [address] [place], [place] [address] documented as of this encounter
--- OUTSIDE RECORDS SUMMARY | 2022-08-23 10:00 | XMS_ITS | Encounter Summary ---
:1965 Author Organization [facility] Address [address] [place] [address] Care Team Providers Name Role Phone Unavailable Primary Care Provider Unavailable Encounter Details Date Type Department Care Team Description 02/25/2021 Hospital Encounter Department of Bryce, Gail Staton Renal Laboratory Medicine MTereso (HCC) and Pathology, [address] [place] [address], [place] [facility] [address] [place] [phone] [place] [address] (Work) [place], [place] [phone] (Fax) [phone] Social History Tobacco Use Types Packs/Day Years Used Date Smoking Tobacco: Never Smokeless Tobacco: Never Alcohol Habits Answer Date Recorded How often do you have a drink containing 4 or more times a w [place] 05/12/2021 alcohol? How many drinks containing alcohol [...] 05/12/2021 relatives? How often do you attend sikh or alevism Never 05/12/2021 services? Do you belong to any clubs or organizations such No 05/12/2021 as sikh groups, unions, fraternal or athletic groups, or [...] have completed or the highest Young, MEd, LICENSED LIFE AND HEALTH AGENT, ERNIE) degree you have received? Sex Assigned [...] Associated Comments Diagnosis TACROLIMUS LEVEL, B Routine 04/20/2021 7:45 AM Transplant Mary l Results for this CDT (HCC) procedure are i n the results section. documented in this encounter Results Tacrolimus, B (04/20/2021 7:45 AM CDT) P athologist Signature Tacrolimus, B 7.6 5.0-15.0 04/22/2021 [facility] (Trough) 10:14 AM CDT ng/mL Comment: ----ADDITIONAL [...] and its performa nce characteristics determined by [facility] in a manner consistent with CLIA [...] City/State/ZIP Code Phon e Number [facility] [address] [place] [address] SUPPORT CENTER [facility] [place] [address] Laboratory Medicine and Pathology [address] [place] documented in this encounter Visit Diagnoses Diagnosis Transplant Renal (HCC) documented in this encounter Care Teams Cream Hauler Relationship Specialty Start Date End Date [facility] of Laboratory Medicine [place] [address] [place], [place] [address] documented as of this encounter
--- OUTSIDE RECORDS SUMMARY | 2022-08-23 10:00 | XMS_ITS | Encounter Summary ---
:1965 Author Organization [facility] Address [address] [place] [address] Care Team Providers Name Role Phone Unavailable Primary Care Provider Unavailable Encounter Details Date Type Department Care Team Description 05/19/2021 Orders Only Division of Nephrology and Goyo Hannon, Hypertension in [facility] [address] [facility] [address] [place] [address] [phone] (Wo rk) Social History Tobacco Use Types Packs/Day Years Used Date Smoking Tobacco: Never Smokeless Tobacco: Never Alcohol Use Standard Drinks/Week Comments Yes 6 (1 standard drink = 0.6 oz pure alcoho l) Alcohol Habits Answer Date Recorded How often do you have a drink containing 4 or more times a w [place] 05/12/2021 alcohol? How many drinks containing alcohol [...] How often do you attend yarsani or nondenominational Never 05/12/2021 services? Do you [...] place to sleep or slept in a long-term (including now)? Education Answer Date Recorded What is the highest level of school Master's degree (e.g., Beatrice Kilpatrick MS, 05/08/2019 you have completed or the highest Young, MEd, CRIME SCENE TECHNICIAN, ERNIE) degree you have received? Sex Assigned at Date Recorded Male 05/27/2018 8:52 AM CDT documented as of this encounter Plan of Treatment Not on filedocumented as of this encounter Visit Diagnoses Not on filedocumented in this encounter Care Teams Elevator Repair Mechanic Relationship Specialty Start Date End Date [facility] [place] [address] [place], [place] [address] documented as of this encounter
--- OUTSIDE RECORDS SUMMARY | 2022-08-23 10:01 | XMS_ITS | Encounter Summary ---
:1965 Author Organization [facility] Address [address] [place] [address] Care Team Providers Name Role Phone Unavailable Primary Care Provider Unavailable Reason for Visit Reason Comments Med Refill Encounter Details Date Type Department Care Team Description 10/09/[facility], Med Refill Transplantation and Clinical M.D . Regeneration in [place] [address] [address] [place], [place] [address] [place] [address] [place] [address] [phone] Social History Tobacco Use Types Packs/Day Years Used Date Smoking Tobacco: Never Smokeless Tobacco: Never Alcohol Habits Answer Date Recorded How often do you have a drink containing 4 or more times a w [place] 05/12/2021 alcohol? How many drinks containing alcohol [...] 05/12/2021 relatives? How often do you attend episcopal or protestant Never 05/12/2021 services? Do you belong to any clubs or organizations such No 05/12/2021 as episcopal groups, unions, fraternal or athletic groups, or [...] have completed or the highest Young, MEd, DRUG SAFETY ASSOCIATE, ERNIE) degree you have received? Sex Assigned at Date Recorded Male 05/27/2018 8:52 AM CDT documented as of this encounter Plan of Treatment Not on filedocumented as of this encounter Visit Diagnoses Diagnosis Transplant Renal (HCC) documented in this encounter Care Teams Maintenance Planning Clerk Relationship Specialty Start Date End Date [facility] Laboratory Medicine [place] [address] [place], [place] [address] documented as of this encounter
--- OUTSIDE RECORDS SUMMARY | 2022-08-23 10:01 | XMS_ITS | Encounter Summary ---
:1965 Author Organization [facility] Address [address] [place] [address] Care Team Providers Name Role Phone Unavailable Primary Care Provider Unavailable Encounter Details Date Type Department Care Team Description 09/07/2020 Hospital Encounter Department of LachineNasra Tra nsplant Renal Laboratory Medicine VP CARDIOVASCULAR SERVICE LINE, C.N.P., (HCC) and [facility], [facility] [address] [place] [address] [place] [address] [place], [place] (Work) [phone] Social History Tobacco Use Types Packs/Day Years Used Date Smoking Tobacco: Never Smokeless Tobacco: Never Alcohol Habits Answer Date Recorded How often do you have a drink containing 4 or more times a w [place] 05/12/2021 alcohol? How many drinks containing alcohol [...] 05/12/2021 relatives? How often do you attend yazidi or sabianist Never 05/12/2021 services? Do you belong to any clubs or organizations such No 05/12/2021 as yazidi groups, unions, fraternal or athletic groups, or [...] have completed or the highest Young, MEd, RECONSTRUCTIVE SURGEON, ERNIE) degree you have received? Sex Assigned [...] 70 TAKE 1 TABLET (70 12 tablet 2 01/2310/11/2020 mg tablet MG TOTAL) BY MOUTH ONCE A WEEK. mycophenolate (CELLCEPT) TAKE 2 CAPSULES BY 270 capsule 2 10/11/2020 250 mg MOUTH IN THE capsuleIndications: MORNING AND 1 Transplant Renal (HCC) CAPSULE BY MOUTH IN THE PM TEVA BRAND predniSONE (DELTASONE) 5 TAKE 1 TABLET BY 90 tablet 2 05/0710/28/2020 mg tabletIndications: MOUTH ONCE DAILY. Transplant Renal (HCC) tacrolimus (PROGRAF) 1 Take 2 capsules (2 360 capsule 3 08/2408/24/2021 mg capsuleIndications: mg total) by mouth Transplant Renal (HCC) 2 (two) times a day. documented as of this encounter Plan of Treatment Not on filedocumented as of this encounter Procedures Procedure Name Priority Date/Time Associated Comments Diagnosis TACROLIMUS LEVEL, B Routine 09/13/2020 8:15 AM Transplant Mary l Results for this RURAL CARRIER (HCC) procedure are i n the results section. documented in this encounter Results Tacrolimus, B (09/13/2020 8:15 AM RURAL CARRIER) athologist Signature Tacrolimus, B 5.2 5.0-15.0 09/17/2020 [facility] (Trough) 4:09 PM RURAL CARRIER ng/mL Comment: ----ADDITIONAL INFORMATION---- Target steady-state trough concentration s vary depending on the type of transplant, concomitant immunosuppressio n, clinical/institutional protocols, and time post-transplant. Results should be interpreted in conjunction with this clinical information and any physic al signs/symptoms of rejection/toxicity. Testing performed by Liquid Chromatograp hy-Tandem Mass Spectrometry (LC-MS/MS). This test was developed and its performa nce characteristics determined by [facility] in a manner consistent with CLIA requirements. This test has not been cleared or approved by the U.S. Margarita d and Drug Administration. Specimen Anatomical Collection Method Collection Time Receive d Time (Source) Location / / Volume Laterality Blood (Blood, 09/13/2020 8:15 AM 09/17/20 20 9:42 Venous) RURAL CARRIER AM RURAL CARRIER Resulting Agency Comment Mailed In Specimen Nasra Montalvo APRN, C.N.P., D.N.P. LAB BLOOD NON ADD -ON Performing Organization Address City/State/ZIP Code Phon e Number [facility] [address] [place] [address] SUPPORT CENTER Critical [place] [address] Laboratory Medicine and Pathology [address] [place] documented in this encounter Visit Diagnoses Diagnosis Transplant Renal (HCC) documented in this encounter Care Teams Power Engineer Relationship Specialty Start Date End Date [facility] [place] [address] [place], [place] [phone] documented as of this encounter
--- OUTSIDE RECORDS SUMMARY | 2022-08-23 10:01 | XMS_ITS | Encounter Summary ---
:1965 Author Organization [facility] Address [address] [place] [address] Care Team Providers Name Role Phone Unavailable Primary Care Provider Unavailable Encounter Details Date Type Department Care Team Description 05/26/2020 Orders Only Zabrina Long [facility] Renal Center for J, Jacki., C.C.T.C . (HCC) (Primary Dx) Transplantation and [address] [place] [address] in [place], [place] [address] [place] [address] [place] [address] (Work) [phone] Social History Tobacco Use Types Packs/Day Years Used Date Smoking Tobacco: Never Smokeless Tobacco: Never Alcohol Habits Answer Date Recorded How often do you have a drink containing 4 or more times a w [place] 05/12/2021 alcohol? How many drinks containing alcohol [...] How often do you attend yarsani or tenriism Never 05/12/2021 services? Do you [...] have completed or the highest Young, MEd, COMMUNITY ARTS OFFICER, ERNIE) degree you have received? Sex Assigned at Date Recorded Male 05/27/2018 8:52 AM CDT documented as of this encounter Plan of Treatment Not on filedocumented as of this encounter Visit Diagnoses Diagnosis Transplant Renal (HCC) - Primary documented in this encounter
--- OUTSIDE RECORDS SUMMARY | 2022-08-23 10:01 | XMS_ITS | Encounter Summary ---
:1965 Author Organization [facility] Address [address] [place] [address] Care Team Providers Name Role Phone Unavailable Primary Care Provider Unavailable Encounter Details Date Type Department Care Team Description 12/17/2020 Hospital Encounter Department of PattersonNasra Tra nsplant Renal Laboratory Medicine [facility], C.N.P., (HCC) and [facility], [facility] in [address] [place] [address] [place] [address] [place], [place] (Work) [phone] Social History Tobacco Use Types Packs/Day Years Used Date Smoking Tobacco: Never Smokeless Tobacco: Never Alcohol Habits Answer Date Recorded How often do you have a drink containing 4 or more times a w [place] 05/12/2021 alcohol? How many drinks containing alcohol [...] 05/12/2021 relatives? How often do you attend jewish or advent Never 05/12/2021 services? Do you belong to any clubs or organizations such No 05/12/2021 as jewish groups, unions, fraternal or athletic groups, or [...] have completed or the highest Young, MEd, DIRECTOR WEB, ERNIE) degree you have received? Sex Assigned [...] Associated Comments Diagnosis TACROLIMUS LEVEL, B Routine 12/28/2020 8:15 AM Transplant Mary l Results for this CDT (HCC) procedure are i n the results section. documented in this encounter Results Tacrolimus, B (12/28/2020 8:15 AM CDT) athologist Signature Tacrolimus, B 6.7 5.0-15.0 12/31/2020 [facility] (Trough) 3:06 PM CDT ng/mL Comment: ----ADDITIONAL INFORMATION---- Target [...] its performa nce characteristics determined by [facility] in a manner consistent with CLIA requirements. This test has not been cleared or approved by the U.S. Margarita d and Drug Administration. Specimen Anatomical Collection Method Collection Time Receive d Time (Source) Location / / Volume Laterality Blood (Blood, 12/28/2020 8:15 AM 01/01/20 21 Venous) CDT 10:57 AM CDT Nasra Motnalvo APRN, C.N.P., D.N.P. LAB BLOOD NON ADD -ON Performing Organization Address City/State/ZIP Code Phon e Number [facility] [address] [place] [address] SUPPORT CENTER [facility] [place] [address] Laboratory Medicine and Pathology [address] [place] documented in this encounter Visit Diagnoses Diagnosis Transplant Renal (HCC) documented in this encounter Care Teams Supervisor Gelatin Plant Relationship Specialty Start Date End Date [facility] of Laboratory Medicine [place] [address] [place], [place] [phone] documented as of this encounter
--- OUTSIDE RECORDS SUMMARY | 2022-08-23 10:01 | XMS_ITS | Encounter Summary ---
:1965 Author Organization [facility] Address [address] [place] [address] Care Team Providers Name Role Phone Unavailable Primary Care Provider Unavailable Encounter Details Date Type Department Care Team Description 06/01/2020 Hospital Department of Deejay Cordoba Renal Encounter Laboratory Joel Middleton Secondary ([facility]) Medicine and [address] [place] [address] in [facility] [address] [place] [address] [place], [place] (Work) [phone] Social History Tobacco Use Types Packs/Day Years Used Date Smoking Tobacco: Never Smokeless Tobacco: Never Alcohol Habits Answer Date Recorded How often do you have a drink containing 4 or more times a w [place] 05/12/2021 alcohol? How many drinks containing alcohol [...] How often do you attend religious or anabaptism Never 05/12/2021 services? Do you belong to [...] have completed or the highest Young, MEd, NUTRITIONIST, ERNIE) degree you have received? Sex Assigned [...] ONCE DAILY. Transplant Renal (HCC) tacrolimus (PROGRAF) 0.5 TAKE 1 CAPSULE BY 180 capsule 3 09/06/2020 mg capsuleIndications: MOUTH TWICE DAILY Transplant Renal (HCC) ALONG WITH 1MG CAP FOR TOTAL DOSE OF 2.5MG TWICE DAILY tacrolimus (PROGRAF) 1 TAKE 2 CAPSULES BY 360 capsule 2 01/2309/06/2020 mg capsuleIndications: MOUTH TWICE DAILY Transplant Renal (HCC) (ALONG WITH 0.5 MG CAP FOR TOTAL DOSE OF 2.5 MG TWICE DAILY) documented as of this encounter Plan of Treatment Not on filedocumented as of this encounter Procedures Procedure Name Priority Date/Time Associated Diagnosis Comme nts CALCIUM, 24 HR, U Routine 06/15/2020 7:55 Hyperparathyroidism Renal Results for this AM CDT Secondary (HCC) procedure ar e in the results section. CREATININE, U Routine 06/15/2020 7:55 Hyperparathyroidism Van l Results for this AM CDT Secondary (HCC) procedure ar e in the results section. documented in this encounter Results Creatinine, 24 Hour, Urine (06/15/2020 7:55 AM CDT) athologist Signature Creatinine, 24 1517 mg/24 h 06/17/2020 [facility] HR, U 12:00 PM CDT Comment: ----REFERENCE VALUE---- The expected creatinine excretion per 24 hrs for males: 955-2936 mg/24 hrs or 13-29 mg/kg/24 hrs. Note: To convert to mg/kg of body weight /24 hrs, divide the mg/24 h result by the weight in kg. Collection Duration 24 h 06/17/2020 10:19 AM CDT VAN Urine Volume 3700 mL 06/17/2020 10:19 AM CDT CRISTELA A Creatinine Conc 41 mg/dL 06/17/2020 12:00 PM CDT VAN Specimen Anatomical Collection Method Collection Time Receive d Time (Source) Location / / Volume Laterality Urine (Urine, 24 06/15/2020 7:55 AM 06/17 Hours) CDT 10:18 AM CDT Resulting Agency Comment Mailed In Specimen Deejay Cordoba M.D. LAB URINE ORDERABLES Performing Organization Address City/State/ZIP Code Phon e Number [facility] - [address] [place], [place] [address] [facility] [place] [address] [facility] [address] (ABNORMAL) Calcium, 24 Hour, Urine (06/15/2020 7:55 AM CDT) athologist Signature Calcium, 24 296 (H) <250 mg/24 06/17/2020 [facility]AN HR, U h 12:00 PM CDT Comment: ----ADDITIONAL INFORMATION---- This test has been modified from the man ufacturer's instructions. Its performance characteri stics were determined by [facility] in a manner co nsistent with CLIA requirements. This test has not bee n cleared or approved by the U.S. Food and Drug Admin istration. Collection Duration 24 h 06/17/2020 10:19 AM CDT VAN Urine Volume 3700 mL 06/17/2020 10:19 AM CDT CRISTELA A Calcium Concentration 8 mg/dL 06/17/2020 12:00 P M CDT VAN Specimen Anatomical Collection Method Collection Time Receive d Time (Source) Location / / Volume Laterality Urine (Urine, 24 06/15/2020 7:55 AM 06/17 Hours) CDT 10:18 AM CDT Resulting Agency Comment Mailed In Specimen Deejay Cordoba M.D. LAB URINE ORDERABLES Performing Organization Address City/State/ZIP Code Phon e Number [facility] - [address] [place], [place] [address] [place] [address] [facility] [address] documented in this encounter Visit Diagnoses Diagnosis Hyperparathyroidism Renal Secondary (HCC ) documented in this encounter
--- OUTSIDE RECORDS SUMMARY | 2022-08-23 10:01 | XMS_ITS | Encounter Summary ---
:1965 Author Organization [facility] Address [address] [place] [address] Care Team Providers Name Role Phone Unavailable Primary Care Provider Unavailable Reason for Visit Reason Comments Med Refill Encounter Details Date Type Department Care Team Description 10/11/2020 Refill Division of Endocrinology in [place] Ty M.D. Med Refill [place], [place] [address] [facility] [address] [place] [phone] [phone] (Wo rk) Social History Tobacco Use Types Packs/Day Years Used Date Smoking Tobacco: Never Smokeless Tobacco: Never Alcohol Habits Answer Date Recorded How often do you have a drink containing 4 or more times a w [place] 05/12/2021 alcohol? How many drinks [...] How often do you attend bahai or latter-day Never 05/12/2021 services? Do you belong to [...] place to sleep or slept in a m[facility] (including now)? Education Answer Date Recorded What is the highest level of school Master's degree (e.g., M A, MS, 05/08/2019 you have completed or the highest Young, MEd, MELTER HELPER, ERNIE) degree you have received? Sex Assigned at Date Recorded Male 05/27/2018 8:52 AM CDT documented as of this encounter Miscellaneous Notes Telephone Encounter - Rebecca Longo R.N. - 10/11/2020 11:08 AM HAM CURER Prescription renewal request did not meet nurse protocol because: request for renewal for which the provider-issued prescription did not authorize refills for one year Protocol utilized: Prescription Renewal Request for Medications: Division of Endocrinology, Diabetes, Metabolism and Nutrition. CURER documented in this encounter Plan of Treatment Not on filedocumented as of this encounter Visit Diagnoses Not on filedocumented in this encounter Care Teams Piper Installer Relationship Specialty Start Date End Date [facility] of [facility] Medicine [place] [address] [place], [place] [address] documented as of this encounter
--- OUTSIDE RECORDS SUMMARY | 2022-08-23 10:01 | XMS_ITS | Encounter Summary ---
:1965 Author Organization [facility] Address [address] [place] [address] Care Team Providers Name Role Phone Unavailable Primary Care Provider Unavailable Reason for Visit Reason Comments External Lab Entry 09/01/2020 Encounter Details Date Type Department Care Team Description 09/02/2020 Clinical Joey Gordillo Transplant, Assembly Hand al Lab Entry Communication Center for Coordinator, (09/01/2020) Transplantation and R.N. Clinical Regeneration in [facility] [place] [address] [place] [address] Social History Tobacco Use Types Packs/Day Years Used Date Smoking Tobacco: Never Smokeless Tobacco: Never Alcohol Habits Answer Date Recorded How often do you have a drink containing 4 or more times a w [place] 05/12/2021 alcohol? How many drinks containing alcohol [...] 05/12/2021 relatives? How often do you attend mandaeism or congregation Never 05/12/2021 services? Do you belong to any clubs or organizations such No 05/12/2021 as mandaeism groups, unions, fraternal or athletic groups, or [...] have completed or the highest Young, Macy, CANCER SPEC, ERNIE) degree you have received? Sex Assigned at Date Recorded Male 05/27/2018 8:52 AM CDT documented as of this encounter Plan of Treatment Not on filedocumented as of this encounter Procedures Procedure Name Priority Date/Time Associated Comments Diagnosis EXTP TRANSPLANT Routine 09/01/2020 7:52 AM Result s for this KIDNEY/PANCREAS - PLANT BREEDER procedure are in URINE, EXTERNAL LAB the resu lts RESULTS section. EXTP TRANSPLANT Routine 09/01/2020 7:52 AM Result s for this KIDNEY/PANCREAS - PLANT BREEDER procedure are in BLOOD, EXTERNAL LAB the resu lts RESULTS section. documented in this encounter Results Transplant Kidney/Pancreas - Urine, External Lab Results (09/01/2020 7:52 AM PLANT BREEDER) athologist Signature EXT Microalbuminuri a, 24 Hr, U Comment: <2 Specimen (Source) Anatomical Collection Method Collection Time Re ceived Time Location / / Volume Laterality Urine 09/01/2020 7:52 AM PLANT BREEDER Historical Provider LAB URINE ORDERABLES Transplant Kidney/Pancreas - Blood, External Lab Results (09/01/2020 7:52 AM PLANT BREEDER) athologist Signature EXT Leukocytes 4.4 EXT Absolute 2.8 Neutrophils EXT Hemoglobin 15.4 EXT Platelet 172 Count EXT Glucose 144 EXT Creatinine 1.5 mg/dL EXT Potassium 5.1 Specimen (Source) Anatomical Collection Method Collection Time Re ceived Time Location / / Volume Laterality Blood 09/01/2020 7:52 AM PLANT BREEDER Narrative This result has an attachment that is no t available. Historical Provider LAB BLOOD NON ADD-ON documented in this encounter Visit Diagnoses Not on filedocumented in this encounter Care Teams Loans Consultant Relationship Specialty Start Date End Date [facility] Laboratory Medicine [place] [address] [place], [place] [address] documented as of this encounter
--- OUTSIDE RECORDS SUMMARY | 2022-08-23 10:01 | XMS_ITS | Encounter Summary ---
:1965 Author Organization [facility] Address [address] [place] [address] Care Team Providers Name Role Phone Unavailable Primary Care Provider Unavailable Reason for Visit Reason Comments External Lab Entry 12/28/2020 Encounter Details Date Type Department Care Team Description 12/30/2020 Clinical Joey Gordillo Transplant, Tunnel Inspector al Lab Entry Communication Center for Coordinator, (12/28/2020) Transplantation and R.N. Clinical Regeneration in [facility] rotary surface grinder [address] [place] [address] Social History Tobacco Use Types Packs/Day Years Used Date Smoking Tobacco: Never Smokeless Tobacco: Never Alcohol Habits Answer Date Recorded How often do you have a drink containing 4 or more times a w [place] 05/12/2021 alcohol? How many drinks containing alcohol [...] How often do you attend protestant or buddhism Never 05/12/2021 services? Do you [...] have completed or the highest Young, MEd, SAP BASIS ADMINISTRATOR, ERNIE) degree you have received? Sex Assigned at Date Recorded Male 05/27/2018 8:52 AM CDT documented as of this encounter Plan of Treatment Not on filedocumented as of this encounter Procedures Procedure Name Priority Date/Time Associated Comments Diagnosis EXTP TRANSPLANT Routine 12/28/2020 8:21 AM Result s for this KIDNEY/PANCREAS - CDT procedure are in URINE, EXTERNAL LAB the resu lts RESULTS section. EXTP TRANSPLANT Routine 12/28/2020 8:21 AM Result s for this KIDNEY/PANCREAS - CDT procedure are in BLOOD, EXTERNAL LAB the resu lts RESULTS section. documented in this encounter Results Transplant Kidney/Pancreas - Urine, External Lab Results (12/28/2020 8:21 AM CDT) athologist Signature EXT 7 Albumin/Creatin ine Ratio Comment: mg/g Specimen (Source) Anatomical Collection Method Collection Time Re ceived Time Location / / Volume Laterality Urine 12/28/2020 8:21 AM CDT Narrative This result has an attachment that is no t available. Historical Provider LAB URINE ORDERABLES Transplant Kidney/Pancreas - Blood, External Lab Results (12/28/2020 8:21 AM CDT) athologist Signature EXT Leukocytes 3.9 EXT Absolute 2.4 Neutrophils EXT Hemoglobin 15.3 EXT Platelet 164 Count EXT Glucose 148 EXT Creatinine 1.4 mg/dL EXT Potassium 4.4 EXT Hemoglobin 6.4 A1c, B Specimen (Source) Anatomical Collection Method Collection Time Re ceived Time Location / / Volume Laterality Blood 12/28/2020 8:21 AM CDT Narrative This result has an attachment that is no t available. Historical Provider LAB BLOOD NON ADD-ON documented in this encounter Visit Diagnoses Not on filedocumented in this encounter Care Teams Outdoor Adventure Leader Relationship Specialty Start Date End Date [facility] [place] [address] [place], [place] [address] documented as of this encounter
--- OUTSIDE RECORDS SUMMARY | 2022-08-23 10:01 | XMS_ITS | Encounter Summary ---
:[address] [facility] Address [address] [place] [address] Care Team Providers Name Role Phone Unavailable Primary Care Provider Unavailable Encounter Details Date Type Department Care Team Description 08/31/2020 Orders Only Joey Ramirez, Paulina Schwartz [facility] Renal Center for GLASS ETCHER, C.N.P., ([facility]) Transplantation and D.N.P. Clinical Regeneration in [address] [place] [address] [place] [phone] [place] [address] [phone] Social History Tobacco Use Types Packs/Day Years Used Date Smoking Tobacco: Never Smokeless Tobacco: Never Alcohol Habits Answer Date Recorded How often do you have a drink containing 4 or more times a w [place] 05/12/2021 alcohol? How many drinks containing alcohol [...] 05/12/2021 relatives? How often do you attend sabianist or jew Never 05/12/2021 services? Do you belong to any clubs or organizations such No 05/12/2021 as sabianist groups, unions, fraternal or athletic groups, or [...] have completed or the highest Young, MEd, RADIO TESTER, ERNIE) degree you have received? Sex Assigned at Date Recorded Male 05/27/2018 8:52 AM CDT documented as of this encounter Plan of Treatment Not on filedocumented as of this encounter Results Tacrolimus, B (10/05/2020 8:21 AM GASOLINE TRACTOR OPERATOR) P athologist Signature Tacrolimus, B 6.2 5.0-15.0 10/08/2020 SDSC (Trough) 6:27 PM GASOLINE TRACTOR OPERATOR ng/mL Comment: ----ADDITIONAL INFORMATION---- Target steady-state trough concentration s vary depending on the type of transplant, concomitant immunosuppressio n, clinical/institutional protocols, and time post-transplant. Results should be interpreted in conjunction with this clinical information and any physic al signs/symptoms of rejection/toxicity. Testing performed by Liquid Chromatograp hy-Tandem Mass Spectrometry (LC-MS/MS). This test was developed and its performa nce characteristics determined by [facility] in a manner consistent with CLIA requirements. This test has not been cleared or approved by the [place] d and Drug Administration. Specimen Anatomical Collection Method Collection Time Receive d Time (Source) Location / / Volume Laterality Blood (Blood, 10/05/2020 8:21 AM 10/08/19 21 1:30 Venous) GASOLINE TRACTOR OPERATOR PM GASOLINE TRACTOR OPERATOR Resulting Agency Comment Mailed In Specimen Nasra Montalvo APRN, C.N.P., D.N.P. LAB BLOOD NON ADD -ON Performing Organization Address City/State/ZIP Code Phon e Number [facility] [address] [place], [place] [address] SUPPORT CENTER [facility] [place] [address] Laboratory Medicine and Pathology [address] [place] documented in this encounter Visit Diagnoses Diagnosis Transplant Renal (HCC) documented in this encounter Care Teams Multi Punch Operator Relationship Specialty Start Date End Date [facility] [place] [address] [place], [place] [address] documented as of this encounter
--- OUTSIDE RECORDS SUMMARY | 2022-08-23 10:01 | XMS_ITS | Encounter Summary ---
:1965 Author Organization [facility] Address [address] [place] [address] Care Team Providers Name Role Phone Unavailable Primary Care Provider Unavailable Reason for Referral Outpatient (Routine) - Closed Specialty Diagnoses / Procedures Referred By Contact Refer red To Contact Diagnoses Transplant Renal (HCC) Josette Hannon M.D. [facility] Procedures ECG 12 Lead [address] [place], [place] [phone] Referral ID Status Reason Start Date Expiration Date Visits Requ ested Visits Authorized [id number] Closed 02/23/2021 02/23/2022 1 1 Outpatient (Routine) - Closed Specialty Diagnoses / Procedures Referred By Contact Refer red To Contact Diagnoses Transplant Renal (HCC) oJsette Hannon M.D. [facility] Procedures Short renal clearance: Iothalamate (Renal Studies Unit) [address] [place] [address] Referral ID Status Reason Start Date Expiration Date Visits Requ ested Visits Authorized [id number] Closed 02/23/2021 02/23/2022 1 1 Reason for Visit Reason Comments Annual Exam Encounter Details Date Type Department Care Team Description 02/22/2021 Clinical Communication Joey Castaneda, Annual Exam [facility] for [facility] [address] [place] [address] [place] [address] [place] [address] [phone] Social History Tobacco Use Types Packs/Day Years Used Date Smoking Tobacco: Never Smokeless Tobacco: Never Alcohol Habits Answer Date Recorded How often do you have a drink containing 4 or more times a w [place] 05/12/2021 alcohol? How many drinks containing alcohol [...] 05/12/2021 relatives? How often do you attend lutheran or islam Never 05/12/2021 services? Do you belong to any clubs or organizations such No 05/12/2021 as lutheran groups, unions, fraternal or athletic groups, or [...] have completed or the highest Young, MEd, ROCK BREAKER, ERNIE) degree you have received? Sex Assigned at Date Recorded Male 05/27/2018 8:52 AM CDT documented as of this encounter Miscellaneous Notes Telephone Encounter - Mayra Kellogg Padmini - 02/22/2021 4:03 PM CDT *pt would like to avoid doing a bx due to the risks involved unless it is medically necessary Patient is scheduled for an annual visit on: ??? 05/16 ??? Annual Year: 10 Provider: Riddhi Is patient a Dual Organ Patient? []Yes [x]No Provider to review and order if needed: ??? Biopsy if needed ??? Validate Labs: o CMV/EBV Testing o Serology Testing (1 year Transplants after November 22, 2020 need PHS testing) o PSA - males >50 years old o HcG- females <50 years old ??? Dermatology - preordered cancel if not needed Biopsy: [x]Right []Left []Patient Unsure []Not a Biopsy Year Immunosuppression Medication: *provider review needed for CellCept* Recent Labs 12/28/20 0815 TACROLIMUS 6.7 Diabetic: [] Yes [x]No ??? If yes, is patient seeing Bedspread Cutter Hand/provider locally for Diabetes management? [] Yes [] No Osteoporosis: []Yes [x]No ??? Bone Density: Last one was on [insert date] *provider must order if needed* Thyroid Medication: []Yes [x]No Blood Thinner/Aspirin: [x]Yes, Medication Name: Baby aspirin [] No Asa Maintenance Testing Needed: *provider must order if needed* ??? Colonoscopy: [] Yes, Pharmacy Script: [x] No ??? Mammo: [] Yes []No Please route reply to: rst txp kpn scheduling Any other items needing to be addressed: None (PASS copy and paste and put on top) Indication/Diagnosis: Department Requested: Indication/Diagnosis: Department Requested: documented in this encounter Plan of Treatment Scheduled Orders Name Type Priority Associated Diagnoses Order S chedule Short renal clearance: Procedures Routine Transplant Renal ( HCC) Expected: Iothalamate (Renal , Expires: Studies Unit) 07/16/2021 documented as of this encounter Results DX Chest AP or [...] significant change since 05/25/2020. Negative chest. Josette Hannon M.D. IMG DIAGNOSTIC IMAGING PROCE DURES ECG 12 Lead (05/13/2021 10:35 AM CDT) P athologist Signature Ventricular Rate 68 BPM MUSE ECG/Min GA Interval 146 ms MUSE QRSD Interval 98 ms MUSE QT Interval 388 ms MUSE QTC Interval 412 ms MUSE P Conway 39 degrees MUSE R Conway 74 degrees MUSE T Wave [place] 38 degrees MUSE Specimen Anatomical Collection Method Collection Time Receive d Time (Source) Location / / Volume Laterality 05/13/2021 10:35 05/13/2021 AM CDT 10:48 AM CDT Impressions MUSE - 05/13/2021 10:48 AM CDT Normal sinus rhythm Normal ECG When compared with ECG of 25-MAY-2020 10 :38, No significant change was found Reviewed by CHAVO Puri Narrative This result has an attachment that is no t available. Procedure Note Jesus Leos M.D., Ph.D. - 1 IMPRESSION: Normal sinus rhythm Normal ECG When compared with ECG of 25-MAY-2020 10 :38, No significant change was found Reviewed by CHAVO Puri Josette Hannon M.D. ECG ORDERABLES Performing Organization Address City/State/ZIP Code Phon e Number MUSE MUSE NA [employer], Urine (05/13/2021 8:39 AM CDT) Analysis Performed At Patho logist Time Signature Jarvis/Kid Collected DEFAULT 05/13/2021 HSS Storage, U 8:39 AM CDT Specimen Anatomical Collection Method Collection Time Receive d Time (Source) Location / / Volume Laterality Urine (Urine, 05/13/2021 8:39 AM 05/13/20 8:39 Clean Catch) CDT AM CDT Josette Hannon M.D. LAB URINE ORDERABLES Performing Organization Address City/State/ZIP Code Phon e Number [facility] - 200 [place], [place] [address] [facility] [place] [address] Laboratories[address] Bacterial Culture, Aerobic + Susc, Urine (05/13/2021 8:38 AM CDT) [facility] Method Time Signature Urine Culture No growth 05/14/2021 DTL after 1 day 8:15 AM CDT of incubation. Specimen Anatomical Collection Method Collection Time Receive d Time (Source) Location / / Volume Laterality Urine (Urine, 05/13/2021 8:38 AM 05/13/20 9:04 Midstream) CDT AM CDT Comment: Specimen Source Site: Urine Josette Hannon M.D. LAB MICROBIOLOGY - GENERAL O RDERABLES Performing Organization Address City/[facility]/ZIP Code Phon e Number [place] [address] 05 [facility] [place] [address] Laboratories[address] Urinalysis with Microscopic: Urine, Midstream (05/13/2021 8:38 AM CDT) [employer] Method Time Signature Source Urine, Urine, 05/13/2021 DTL Midstream 8:51 AM CDT Color, U Yellow 05/13/2021 DTL 8:51 AM CDT Clarity, U Clear 05/13/2021 DTL 8:51 AM CDT Protein, U 4 <26 mg/dL 05/13/2021 DTL 9:26 AM CDT Protein/Osmol 0.20 <0.42 05/13/2021 DTL ality ratio 9:47 AM CDT Predicted 24 198 mg/24 h 05/13/2021 DTL Hr Protein 9:47 AM CDT Predicted 63-625 mg/24 h 05/13/2021 DTL Range 9:47 AM CDT Specimen Anatomical Collection Method Collection Time Receive d Time (Source) Location / / Volume Laterality Urine (Urine, 05/13/2021 8:38 AM 05/13/20 8:51 Midstream) CDT AM CDT Josette Hannon M.D. LAB URINE ORDERABLES Performing Organization Address City/[facility]/ZIP Code Phon e Number [facility] - [address] [place] [address] [address] [place] [address] Laboratories-[facility] [address] [facility] (ABNORMAL) BKV DNA Detect/Quant (05/13/2021 8:29 AM CDT) Patholo gist Method Time Signature BKV DNA <22 (A) Undetected 05/14/2021 [facility] Detect/Quant, IU/mL 10:24 PM CDT P Comment: Result in log IU/mL is <1.34. BKV DNA is detected, but level present i s <22 IU/mL (<1.34 log IU/mL). This assay cannot accurately quantify BKV DNA below this level. ----ADDITIONAL INFORMATION---- The quantification range of this assay i s 22 to 100,000,000 IU/mL (1.34 log to 8.00 log IU/mL). Testing was performe d using the tosin BKV test ([employer] with the tosin 6800 System. Specimen Anatomical Collection Method Collection Time Receive d Time (Source) Location / / Volume Laterality Blood (Blood, 05/13/2021 8:29 AM 05/13/20 2:06 Venous) CDT PM CDT Josette Hannon M.D. LAB MICROBIOLOGY - BLOOD ORD ERABLES Performing Organization Address City/State/ZIP Code Phon e Number [facility] [address] [place] [address] [facility] CENTER [facility] [place] [address] Laboratory Medicine and Pathology [address] [place] Parathyroid Hormone (PTH) (05/13/2021 8:29 AM CDT) P athologist Signature Parathyroid 61 15 - 65 05/13/2021 DTL Hormone (PTH), S pg/mL 9:19 AM CDT Specimen Anatomical Collection Method Collection Time Receive d Time (Source) Location / / Volume Laterality Blood (Blood, 05/13/2021 8:29 AM 05/13/20 21 8:54 Venous) CDT AM CDT Josette Hannon M.D. LAB BLOOD ADD-ON Performing Organization Address City/State/ZIP Code Phon e Number [facility] [address] [place], [place] [address] [place] [address] Laboratories-[facility] [address] 25-Hydroxyvitamin D2 and D3 (05/13/2021 8:29 AM CDT) P athologist Signature 25-Hydroxy D2 <4.0 ng/mL 05/14/2021 SDSC 12:09 AM CDT 25-Hydroxy D3 50 ng/mL 05/14/2021 SDSC 12:09 AM CDT 25-Hydroxy D 50 ng/mL 05/14/2021 [facility] Total 12:09 AM CDT Comment: ----REFERENCE VALUE---- 25-HYDROXY D TOTAL (D2+D3) Optimum level s in the healthy population are 20-50, patients with bone disease may benefit from higher levels within this r cris. ----ADDITIONAL INFORMATION---- This test was developed and its performa nce characteristics determined by [facility] in a manner consistent with CLIA requirements. This test has not been cleared or approved by the [place] Marg[place] d and Drug Administration. Specimen Anatomical Collection Method Collection Time Receive d Time (Source) Location / / Volume Laterality Blood (Blood, 05/13/2021 8:29 AM 05/13/20 Venous) CDT 10:42 AM CDT Josette Hannon M.D. LAB BLOOD ADD-ON Performing Organization Address City/State/ZIP Code Phon e Number [facility] [address] [place], [place] [address] [place], [place] [address] [address] Laboratory Medicine and Pathology [address] [place] CMV DNA Detect / Quant, Plasma (05/13/2021 8:29 AM CDT) Patholo gist Method Time Signature CMV DNA Undetected Undetected 05/13/2021 [facility] Detect/Quant, IU/mL 6:44 PM CDT P Comment: Result in log IU/mL is Undetected. ----ADDITIONAL INFORMATION---- The quantification range of this assay i s 35 to 10,000,000 IU/mL (1.54 log to 7.00 log IU/mL). Testing was performed u sing the tosin CMV test ([employer] with the tosin Vivo0 System. Specimen Anatomical Collection Method Collection Time Receive d Time (Source) Location / / Volume Laterality Blood (Blood, 05/13/2021 8:29 AM 05/13/20 21 Venous) CDT 10:42 AM CDT Josette Hannon M.D. LAB MICROBIOLOGY - BLOOD ORD ERABLES Performing Organization Address City/[facility] Code Phon e Number [facility] [address] [place], [place] [address] [place] [address] [facility] [place] [address] Laboratory Medicine and Pathology [address] [place] HLA Class II SAB Antibody Screen (05/13/2021 8:29 AM CDT) [facility] Method Time Signature Class II SAB Negative Not Applicable 05/13/2021 DBB8 Overall 7:37 PM CDT Result Class II SAB 0 05/13/2021 DBB8 cPRA 7:37 PM CDT Comment: ----ADDITIONAL INFORMATION---- This PRA is a [facility] calculated PRA. PRA is based on the antigen frequency of the Tissue Typing patient a nd donor population. ??PRA reflects all antibodie s with a normalized value (MFI) above 300. SAB DRB1 Specificity NONE 05/13/2021 7:37 PM CDT DBB8 SAB [id number] Specificity NONE 05/13/2021 7:37 P M CDT DBB8 SAB DQB1 Specificity NONE 05/13/2021 7:37 PM CDT DBB8 SAB DPB1 Specificity NONE 05/13/2021 7:37 PM CDT DBB8 Comment: ----ADDITIONAL INFORMATION---- Method: Luminex Flow Cytometry CLIA: [id number] ??CLIA Emt I/85: LEON STRATTON MD,PhD Specimen Anatomical Collection Method Collection Time Receive d Time (Source) Location / / Volume Laterality Blood (Blood, 05/13/2021 8:29 AM 05/13/20 21 9:45 Venous) CDT AM CDT Josette Hannon M.D. LAB HLA ORDERABLES Performing Organization Address City/[facility] Code Phon e Number [facility] - [address] [place], [place] [address] [facility] [place] [address] Laboratories-[facility] [address] HLA Class I SAB Antibody Screen (05/13/2021 8:29 AM CDT) Patholo gist Method Time Signature Class I SAB Negative Not Applicable 05/13/2021 DBB8 Overall 7:31 PM CDT Result Class I SAB 0 05/13/2021 DBB8 cPRA 7:31 PM CDT Comment: ----ADDITIONAL INFORMATION---- This PRA is a [facility] calculated PRA. PRA is based on the antigen frequency of the Tissue Typing patient a nd donor population. ??PRA reflects all antibodie s with a normalized value (MFI) above 300. SAB A Specificity NONE 05/13/2021 7:31 PM CDT DBB8 SAB B Specificity NONE 05/13/2021 7:31 PM CDT DBB8 SAB C Specificity NONE 05/13/2021 7:31 PM CDT DBB8 Comment: ----ADDITIONAL INFORMATION---- Method: Luminex Flow Cytometry CLIA: [id number] ??CLIA Emt I/85: LEON STRATTON MD,PhD Specimen Anatomical Collection Method Collection Time Receive d Time (Source) Location / / Volume Laterality Blood (Blood, 05/13/2021 8:29 AM 05/13/20 9:45 Venous) CDT AM CDT Josette Hannon M.D. LAB HLA ORDERABLES Performing Organization Address City/State/ZIP Code Phon e Number [facility] - [facility] [address] [place], [place] [address] [facility] [place] [address] Laboratories-[facility] [address] [facility] [employer] Storage, B (05/13/2021 8:29 AM CDT) Analysis Performed At Patho logist Time Signature Storage, Red Collected DEFAULT 05/13/2021 HSS 8:29 AM CDT Storage, ACD Collected DEFAULT 05/13/2021 HSS 8:30 AM CDT Specimen Anatomical Collection Method Collection Time Receive d Time (Source) Location / / Volume Laterality Blood (Blood, 05/13/2021 8:29 AM 05/13/20 21 8:29 Venous) CDT AM CDT Narrative [facility] - [facility] - 05/13/2021 8:30 AM CDT Specimen Information: Specimen ID: [id number] Specimen Type: Blood Specimen Collection Start Date: 05/13/20 ??8:29 AM Specimen Received Date: 05/13/2021 ??8:2 9 AM Specimen ID: [id number] Specimen Collection Start Date: 05/13/20 ??8:30 AM Specimen Received Date: 05/13/2021 ??8:3 0 AM Josette Hannon M.D. LAB BLOOD ADD-ON Performing Organization Address City/[facility] Phon e Number [facility] - [address] [place] [address] 05 [facility] [place], [place] [phone] [place] [address] (ABNORMAL) Hemoglobin A1c (05/13/2021 8:29 AM CDT) athologist Signature Hemoglobin A1c, 5.8 (H) 4.0 - 5.6 05/13/2021 DTL B % 9:10 AM CDT Comment: Hemoglobin A1c values of 5.7-6.4 percent indicate an increased risk for developing diabetes padmini young. In diabetic patients, HbA1c goals should be discussed with healthcare provider. Specimen Anatomical Collection Method Collection Time Receive d Time (Source) Location / / Volume Laterality Blood (Blood, 05/13/2021 8:29 AM 05/13/20 8:40 Venous) CDT AM CDT Josette Hannon M.D. LAB BLOOD ADD-ON Performing Organization Address [facility] Phon e Number [facility] - [address] [place], [place] [address] [place] [address] (ABNORMAL) Lipid Panel (05/13/2021 8:29 AM CDT) P athologist Signature Cholesterol, 174 mg/dL 05/13/2021 DTL Total 9:19 AM CDT Comment: ----REFERENCE VALUE---- Desirable: < 200 Borderline high: 200 - 239 High: > or = 240 Triglycerides 153 (H) mg/dL 05/13/2021 9:19 AM CDT DTL Comment: ----REFERENCE VALUE---- Normal: <150 Borderline high: 150-199 High: 200-499 Very high: > or =500 Cholesterol, HDL, S 38 (L) >=40 mg/dL 05/13/2021 9:19 AM CDT DTL Calculated LDL 105 mg/dL 05/13/2021 9:19 AM CDT DT L Comment: ----REFERENCE VALUE---- Desirable: <100 mg/dL Above Desirable: 100-129 mg/dL Borderline High: 130-159 mg/dL High: 160-189 mg/dL Very High: >=190 mg/dL Cholesterol, Non-HDL, Calculated 136 mg/dL 021 9:19 AM CDT DTL Comment: ----REFERENCE VALUE---- Desirable: <130 Above Desirable: 130-159 Borderline high: 160-189 High: 190-219 Very high: > or =220 Specimen Anatomical Collection Method Collection Time Receive d Time (Source) Location / / Volume Laterality Blood (Blood, 05/13/2021 8:29 AM 05/13/20 8:54 Venous) CDT AM CDT Josette Hannon M.D. LAB BLOOD ADD-ON Performing Organization Address City/State/[facility] Code Phon e Number [facility] - [address] D[address] Magnesium (05/13/2021 8:29 AM CDT) P athologist Signature Magnesium, S 1.9 1.7 - 2.3 05/13/2021 DTL mg/dL 9:19 AM CDT Specimen Anatomical Collection Method Collection Time Receive d Time (Source) Location / / Volume Laterality Blood (Blood, 05/13/2021 8:29 AM 05/13/20 8:54 Venous) CDT AM CDT Josette Hannon M.D. LAB BLOOD ADD-ON Performing Organization Address City/[facility] Code Phon e Number [facility] - [address] [place], [place] [address] [facility] [place], [place] [phone] [place] [address] Phosphorus Inorganic (05/13/2021 8:29 AM CDT) P athologist Signature Phosphorus 3.1 2.5 - 4.5 05/13/2021 DTL (Inorganic), S mg/dL 9:19 AM CDT Specimen Anatomical Collection Method Collection Time Receive d Time (Source) Location / / Volume Laterality Blood (Blood, 05/13/2021 8:29 AM 05/13/20 8:54 Venous) CDT AM CDT Josette Hannon M.D. LAB BLOOD ADD-ON Performing Organization Address City/State/ZIP Code Phon e Number [facility] - [address] [place], [place] [address] [place] [address] Laboratories-[facility] [address] (ABNORMAL) Comprehensive Metabolic Panel (05/13/2021 8:29 AM CDT) Analysis Performed At Patho logist Time Signature Potassium, S 5.2 3.6 - 5.2 05/13/2021 DTL mmol/L 9:13 AM CDT Sodium, S 140 135 - 145 05/13/2021 DTL mmol/L 9:13 AM CDT Chloride, S 104 98 - 107 05/13/2021 DTL mmol/L 9:13 AM CDT Bicarbonate, S 23 22 - 29 05/13/2021 DTL mmol/L 9:13 AM CDT Anion Gap 13 7 - 15 05/13/2021 DTL 9:13 AM CDT BUN (Blood Urea 16 8 - 24 05/13/2021 DTL Nitrogen), S mg/dL 9:13 AM CDT Creatinine 1.67 (H) 0.74 - 05/13/2021 DTL 1.35 mg/dL 9:13 AM CDT eGFR-Non 46 (L) >=60 05/13/2021 DTL Black/ mL/min/BSA 9:13 AM CDT [place] Comment: ----ADDITIONAL INFORMATION---- Estimated GFR calculated using the 2009 CKD_EPI creatinine equation. eGFR-Black/ 53 (L) >=60 mL/min/BSA 2020 9:13 AM CDT DTL Comment: ----ADDITIONAL INFORMATION---- Estimated GFR calculated using the 2009 CKD_EPI creatinine equation. Calcium, Total, S 10.4 (H) 8.6 - 10.0 mg/dL 05/13/2021 9:13 AM CDT DTL Glucose, S 119 70 - 140 mg/dL 05/13/2021 9:13 AM CDT D TL Protein, Total, S 7.3 6.3 - 7.9 g/dL 05/13/2021 9:13 A M CDT DTL Albumin, S 5.2 (H) 3.5 - 5.0 g/dL 05/13/2021 9:13 AM CDT D TL Aspartate Aminotransferase 22 8 - 48 U/L 05/13/2021 9 :13 AM CDT DTL (AST), S Alkaline Phosphatase, S 35 (L) 40 - 129 U/L 05/13/2021 9: 13 AM CDT DTL Alanine Aminotransferase 14 7 - 55 U/L 05/13/2021 9:1 3 AM CDT DTL (ALT), S Bilirubin, Total, S 0.8 <=1.2 mg/dL 05/13/2021 9:13 AM CDT DTL Specimen Anatomical Collection Method Collection Time Receive d Time (Source) Location / / Volume Laterality Blood (Blood, 05/13/2021 8:29 AM 05/13/20 8:55 Venous) CDT AM CDT Josette Hannon M.D. LAB BLOOD ADD-ON Performing Organization Address City/[facility] Code Phon e Number [facility] - [address] [place] [address] [address] APTT (Activated Partial Thromboplastin Time) (05/13/2021 8:29 AM CDT) P athologist Signature Activated 30 25 - 37 sec 05/13/2021 DTL Partial 8:55 AM CDT Thrombopl Time, P Specimen Anatomical Collection Method Collection Time Receive d Time (Source) Location / / Volume Laterality Blood (Blood, 05/13/2021 8:29 AM 05/13/20 8:40 Venous) CDT AM CDT Josette Hannon M.D. LAB BLOOD ADD-ON Performing Organization Address City/State/ZIP Code Phon e Number [facility] - [address] [place] [address] Laboratories[address] Prothrombin Time (PT) (05/13/2021 8:29 AM CDT) P athologist Signature Prothrombin 10.8 9.4 - 12.5 05/13/2021 DTL Time, P sec 8:55 AM CDT INR 1.0 0.9 - 1.1 05/13/2021 DTL 8:55 AM CDT Comment: ----ADDITIONAL INFORMATION---- Standard intensity warfarin therapeutic range: 2.0 to 3.0 ?? High intensity warfarin therapeutic rang e: 2.5 to 3.5 Specimen Anatomical Collection Method Collection Time Receive d Time (Source) Location / / Volume Laterality Blood (Blood, 05/13/2021 8:29 AM 05/13/20 8:40 Venous) CDT AM CDT Josette Hannon M.D. LAB BLOOD ADD-ON Performing Organization Address City/State/ZIP Code Phon e Number [facility] - [address] [place] [address] [address] (ABNORMAL) CBC with Differential, Blood (05/13/2021 8:29 AM CDT) Patholo gist Method Time Signature Hemoglobin 15.1 13.2 - 05/13/2021 DTL 16.6 g/dL 8:49 AM CDT Hematocrit 44.0 38.3 - 05/13/2021 DTL 48.6 % 8:49 AM CDT Erythrocytes 4.63 4.35 - 05/13/2021 DTL 5.65 8:49 AM CDT x10(12)/L MCV 95.0 78.2 - 05/13/2021 DTL 97.9 fL 8:49 AM CDT RBC Distrib Width 12.2 11.8 - 05/13/2021 DTL 14.5 % 8:49 AM CDT Platelet Count 183 135 - 317 05/13/2021 DTL x10(9)/L 8:49 AM CDT Leukocytes 3.8 3.4 - 9.6 05/13/2021 DTL x10(9)/L 8:49 AM CDT Neutrophils 2.52 1.56 - 05/13/2021 DTL 6.45 8:49 AM CDT x10(9)/L Lymphocytes 0.90 (L) 0.95 - 05/13/2021 DTL 3.07 8:49 AM CDT x10(9)/L Monocytes 0.33 0.26 - 05/13/2021 DTL 0.81 8:49 AM CDT x10(9)/L Eosinophils <0.03 0.03 - 05/13/2021 DTL 0.48 8:49 AM CDT x10(9)/L Basophils <0.03 0.01 - 05/13/2021 DTL 0.08 8:49 AM CDT x10(9)/L Specimen Anatomical Collection Method Collection Time Receive d Time (Source) Location / / Volume Laterality Blood (Blood, 05/13/2021 8:29 AM 05/13/20 21 8:40 Venous) CDT AM CDT Josette Hannon M.D. LAB BLOOD ADD-ON Performing Organization Address City/[facility] Phon e Number [facility] [address] Troponin T, 5th Generation (05/13/2021 8:28 AM CDT) athologist Signature Troponin T, 5th 15 <=15 ng/L 05/13/2021 DT gen 9:20 AM CDT Specimen Anatomical Collection Method Collection Time Receive d Time (Source) Location / / Volume Laterality Blood (Blood, 05/13/2021 8:28 AM 05/13/20 21 8:53 Venous) CDT AM CDT Josette Hannon M.D. LAB BLOOD ADD-ON Performing Organization Address City/[facility] Phon e Number [facility] [address] Albumin, 24 Hour Collection, Urine (05/12/2021 7:30 AM CDT) athologist Signature Albumin, 24 Hr, <17 <30 mg/24 h 05/13/2021 DTL U 1:05 PM CDT Comment: ----ADDITIONAL INFORMATION---- This test has been modified from the man ufacturer's instructions. Its performance characteri stics were determined by [facility] in a manner co nsistent [...] M.D. 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
--- OUTSIDE RECORDS SUMMARY | 2022-08-23 10:01 | XMS_ITS | Encounter Summary ---
:[address] [facility] Address [address] [place] [address] Care Team Providers Name Role Phone Unavailable Primary Care Provider Unavailable Reason for Visit Reason Comments Tacrolimus Adjustment Protocol Encounter Details Date Type Department Care Team Description 09/20/2020 Clinical Ty Aguirre Communication Center for Regla Barron, Adjustment Transplantation and SUMANTH AkhtarN Protocol Clinical Regeneration [phone] in [facility] [address] [place] [address] Social History Tobacco Use Types Packs/Day Years Used Date Smoking Tobacco: Never Smokeless Tobacco: Never Alcohol Habits Answer Date Recorded How often do you have a drink containing 4 or more times a w manzanita 05/12/2021 alcohol? How many drinks containing alcohol [...] 05/12/2021 relatives? How often do you attend latter day or caodaism Never 05/12/2021 services? Do you belong to any clubs or organizations such No 05/12/2021 as latter day groups, unions, fraternal or athletic groups, or [...] have completed or the highest Young, MEd, VIRTUAL ASSISTANT FOR ADVERTISERS, ERNIE) degree you have received? Sex Assigned at Date Recorded Male 05/27/2018 8:52 AM CDT documented as of this encounter Miscellaneous Notes Telephone Encounter - Regla Perez R.N. - 09/21/2020 11:02 AM DIETIST See pt advice encounter. Staying at 2mg twice a day and rechecking in 1-2 weeks. He will take his meds without food. IST Telephone Encounter - Regla Perez R.N. - 09/20/2020 1:26 PM CST Jake sent to patient requesting his preference on how to take his meds in relation to food IST Telephone Encounter - Brenda Bautista, Pharm.D., R.Ph. 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 01/26: 6.5 ng/ml (6-8) on 2.5mg twice daily 10/15: 6.6 ng/ml (6-8) on 2.5mg twice daily 06/18/2019: 6.4 ng/ml (6-8) on 2.5mg twice daily Patient reports not always taking consistently with respect to food (especially in AM). Plan: Food (particularly fatty foods) decrease tacrolimus absorption, so eggs and nuts may definitely decrease absorption. I agree, taking it consistently either way is going to be very helpful. If he plans on taking his medication after he eats his eggs and nuts then I'd increase his dose again to 2.5 mg in AM and 2 mg in PM. If he'd prefer to take it empty stomach, then I'd leave him alone at 2 mg twice daily and recheck in 1-2 weeks. Can you discuss with him and let me know what he'd prefer? I'll update a prescription if he'd like to take with/right after food. Either way, recheck in 1-2 weeks. IST Telephone Encounter - Regla Perez R.N. 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 No New onset GOMEZ? No New onset tremor? No Pharmacy patient uses for immunosuppression: [facility]/pharmacy #[id number] [place], [place] Any other pertinent information related to above (please comment on any pertinent answers above)? Patient may not be taking medication consistently with/without food. He reports his morning dose is either fasting or right after eating, and his evening dose is one hour after dinner. Wanted to discuss with pharmacy given we just decreased his dose from a previous high level and now he is low. Should weask him to be regular with how he takes his pills and then recheck in a week? Patient had previouslystated he was stable for years on 2mg/2mg. IST documented in this encounter Plan of Treatment Not on filedocumented as of this encounter Visit Diagnoses Not on filedocumented in this encounter Care Teams Boston Cutter Relationship Specialty Start Date End Date [facility] [place] [address] [place], [place] [address] documented as of this encounter
--- OUTSIDE RECORDS SUMMARY | 2022-08-23 10:01 | XMS_ITS | Encounter Summary ---
:1965 Author Organization [facility] Address [address] [place] [address] Care Team Providers Name Role Phone Unavailable Primary Care Provider Unavailable Encounter Details Date Type Department Care Team Description 05/26/2020 Clinical Communication Joey Ramirez, Bhavya lopez Center for M, AIRCRAFT DESIGN ENGINEER, C.N.P., Transplantation and D.N.P. Clinical Regeneration in [address] [place] [address] [place] [address] [place] [address] [phone] Social History Tobacco Use Types Packs/Day Years Used Date Smoking Tobacco: Never Smokeless Tobacco: Never Alcohol Habits Answer Date Recorded How often do you have a drink containing 4 or more times a w anvik 05/12/2021 alcohol? How many drinks containing alcohol [...] How often do you attend jewish or baptism Never 05/12/2021 services? Do you [...] have completed or the highest Young, MEd, FUEL CELL BUILDER, ERNIE) degree you have received? Sex Assigned at Date Recorded Male 05/27/2018 8:52 AM CDT documented as of this encounter Plan of Treatment Not on filedocumented as of this encounter Visit Diagnoses Diagnosis Transplant Renal (HCC) - Primary documented in this encounter Care Teams Senior Business Broker Relationship Specialty Start Date End Date [facility] Laboratory Medicine [place] [address] [address] [place], [place] [address] documented as of this encounter
--- OUTSIDE RECORDS SUMMARY | 2022-08-23 10:01 | XMS_ITS | Encounter Summary ---
:1965 Author Organization [facility] Address [address] [place] [address] Care Team Providers Name Role Phone Unavailable Primary Care Provider Unavailable Reason for Visit Reason Comments Med Refill Encounter Details Date Type Department Care Team Description 10/11/2020 Refill Division of Endocrinology in [place] Ty M.D. Med Refill [place], [place] [address] [facility] [address] [place] [address] [phone] (Wo rk) Social History Tobacco Use Types Packs/Day Years Used Date Smoking Tobacco: Never Smokeless Tobacco: Never Alcohol Habits Answer Date Recorded How often do you have a drink containing 4 or more times a w mentasta 05/12/2021 alcohol? How many drinks containing alcohol [...] 05/12/2021 relatives? How often do you attend holiness or church Never 05/12/2021 services? Do you belong to any clubs or organizations such No 05/12/2021 as holiness groups, unions, fraternal or athletic groups, or [...] have completed or the highest Young, MEd, PHARMACOVIGILANCE SAFETY EXPERT, ERNIE) degree you have received? Sex Assigned at Date Recorded Male 05/27/2018 8:52 AM CDT documented as of this encounter Plan of Treatment Not on filedocumented as of this encounter Visit Diagnoses Not on filedocumented in this encounter Care Teams Loan Closer Relationship Specialty Start Date End Date [facility] [place] [address] [place], [place] [address] documented as of this encounter
--- OUTSIDE RECORDS SUMMARY | 2022-08-23 10:01 | XMS_ITS | Encounter Summary ---
:1965 Author Organization [facility] Address [address] [place] [address] Care Team Providers Name Role Phone Unavailable Primary Care Provider Unavailable Reason for Visit Reason Comments Med Refill Encounter Details Date Type Department Care Team Description 10/09/2020 Refill Division of Endocrinology in [place] Ty M.D. Med Refill [place], [place] [address] [facility] [address] [place] [address] [phone] (Wo rk) Social History Tobacco Use Types Packs/Day Years Used Date Smoking Tobacco: Never Smokeless Tobacco: Never Alcohol Habits Answer Date Recorded How often do you have a drink containing 4 or more times a w [place] 05/12/2021 alcohol? How many drinks containing alcohol [...] How often do you attend moravian or church Never 05/12/2021 services? Do you [...] have completed or the highest Young, MEd, SENIOR TECHNICAL ARCHITECT, ERNIE) degree you have received? Sex Assigned at Date Recorded Male 05/27/2018 8:52 AM CDT documented as of this encounter Plan of Treatment Not on filedocumented as of this encounter Visit Diagnoses Not on filedocumented in this encounter Care Teams Anvil Worker Relationship Specialty Start Date End Date [facility] [place] [address] [place], [place] [address] documented as of this encounter
--- OUTSIDE RECORDS SUMMARY | 2022-08-23 10:01 | XMS_ITS | Encounter Summary ---
:1965 Author Organization [facility] Address [address] [place] [address] Care Team Providers Name Role Phone Unavailable Primary Care Provider Unavailable Encounter Details Date Type Department Care Team Description 06/17/2020 Documentation Division of Endocrinology [place], [place] M.DKg [address] [facility] [address] [place] [address] [place], [place] [phone] (Wo rk) Social History Tobacco Use Types Packs/Day Years Used Date Smoking Tobacco: Never Smokeless Tobacco: Never Alcohol Habits Answer Date Recorded How often do you have a drink containing 4 or more times a w [place] 05/12/2021 alcohol? How many drinks containing alcohol [...] 05/12/2021 relatives? How often do you attend samaritan or hindu Never 05/12/2021 services? Do you belong to any clubs or organizations such No 05/12/2021 as samaritan groups, unions, fraternal or athletic groups, or [...] have completed or the highest Young, Macy, CASE FOLDER, ERNIE) degree you have received? Sex Assigned at Date Recorded Male 05/27/2018 8:52 AM CDT documented as of this encounter Progress Notes Deejay [place] M.D. - 06/17/2020 12:07 PM CDT [facility] medical records and laboratory results reviewed. The patient's 24-hour urine calcium was increased at 296 mg (normal, less than 250), with 24-hour urine creatinine 1517 mg, and 24-hour urine volume of 3700 mL. In light of these findings, no additional recommendations for now. Deejay [place] M.D. CT CT Job ID: [id number] documented in this encounter Plan of Treatment Not on filedocumented as of this encounter Visit Diagnoses Not on filedocumented in this encounter
--- OUTSIDE RECORDS SUMMARY | 2022-08-23 10:01 | XMS_ITS | Encounter Summary ---
:1965 Author Organization [facility] Address [address] [place] [address] Care Team Providers Name Role Phone Unavailable Primary Care Provider Unavailable Encounter Details Date Type Department Care Team Description 05/26/2020 Orders Only Zabrina Long [facility]al Center for J, Jacki., C.C.T.C . (HCC) (Primary Dx) Transplantation and [address] [place] [address] in [place], [place] [address] [place] [address] [place] [address] (Work) [phone] Social History Tobacco Use Types Packs/Day Years Used Date Smoking Tobacco: Never Smokeless Tobacco: Never Alcohol Habits Answer Date Recorded How often do you have a drink containing 4 or more times a w [place]ai-apache 05/12/2021 alcohol? How many drinks containing alcohol [...] How often do you attend rastafarian or restorationist Never 05/12/2021 services? Do you [...] have completed or the highest Young, MEd, SHREDDED FILLER HOPPER FEEDER, ERNIE) degree you have received? Sex Assigned at Date Recorded Male 05/27/2018 8:52 AM CDT documented as of this encounter Plan of Treatment Not on filedocumented as of this encounter Results Tacrolimus, B (05/28/2020 9:10 AM CDT) athologist Signature Tacrolimus, B 8.3 5.0-15.0 05/28/2020 [facility] (Trough) 12:11 PM CDT ng/mL Comment: ----ADDITIONAL INFORMATION---- Target steady-state trough concentration s vary depending on the type of transplant, concomitant immunosuppressio n, clinical/institutional protocols, and time post-transplant. Results should be interpreted in conjunction with this clinical information and any physic al signs/symptoms of rejection/toxicity. Testing performed by Liquid Chromatograp hy-Tandem Mass Spectrometry (LC-MS/MS). This test was developed and its performa nce characteristics determined by [facility] in a manner consistent with CLIA requirements. This test has not been cleared or approved by the [place] Marg[place] d and Drug Administration. Specimen Anatomical Collection Method Collection Time Receive d Time (Source) Location / / Volume Laterality Blood (Blood, 05/28/2020 9:10 AM 05/28/20 20 Venous) CDT 10:33 AM CDT Rah Soliz M.D. LAB BLOOD NON ADD-ON Performing Organization Address City/State/ZIP Code Phon e Number [facility] [address] [place] [address] SUPPORT CENTER [facility] [place] [address] Laboratory Medicine and Pathology [address] 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
--- OUTSIDE RECORDS SUMMARY | 2022-08-23 10:01 | XMS_ITS | Encounter Summary ---
:1965 Author Organization [facility] Address [address] [place] [address] Care Team Providers Name Role Phone Unavailable Primary Care Provider Unavailable Encounter Details Date Type Department Care Team Description 12/08/2020 Orders Only Joey Ramirez, Paulina Schwartz [facility] for BRIDAL CONSULTANT, C.N.P., ([facility]) Transplantation and D.N.P. Clinical Regeneration in [address] [place] [address] [place] [address] [place] [address] [phone] Social History Tobacco Use Types Packs/Day Years [...] How often do you attend yazidism or voodoo Never 05/12/2021 services? Do you [...] place to sleep or slept in a half-way (including now)? Education Answer Date Recorded What is the highest level of school Master's degree (e.g., M Shonna, MS, 05/08/2019 you have completed or the highest Young, MEd, COOK HOUSE SUPERVISOR, ERNIE) degree you have received? Sex Assigned at Date Recorded Male 05/27/2018 8:52 AM CDT documented as of this encounter Plan of Treatment Not on filedocumented as of this encounter Results Tacrolimus, B (12/28/2020 8:15 AM CDT) athologist Signature Tacrolimus, B 6.7 5.0-15.0 12/31/2020 [facility] (Trough) 3:06 PM CDT ng/mL Comment: ----ADDITIONAL [...] and its performa nce characteristics determined by [facility] in a manner consistent with CLIA requirements. This test has not been cleared or approved by the [place]. [place] d and Drug Administration. Specimen Anatomical Collection Method Collection Time Receive d Time (Source) Location / / Volume Laterality Blood (Blood, 12/28/2020 8:15 AM 01/01/20 21 Venous) CDT 10:57 AM CDT Nasra Montalvo APRN, C.N.P., D.N.P. LAB BLOOD NON ADD -ON Performing Organization Address City/State/ZIP Code Phon e Number [facility] [address] [place], [place] [address] SUPPORT CENTER [facility] [place] [address] Laboratory Medicine and Pathology [address] [place] documented in this encounter Visit Diagnoses Diagnosis Transplant Renal (HCC) documented in this encounter Care Teams Vice President Of Finance Relationship Specialty Start Date End Date [facility] [place] [address] [place], [place] [address] documented as of this encounter
--- OUTSIDE RECORDS SUMMARY | 2022-08-23 10:01 | XMS_ITS | Encounter Summary ---
:1965 Author Organization [facility] Address [address] [place] [address] Care Team Providers Name Role Phone Unavailable Primary Care Provider Unavailable Encounter Details Date Type Department Care Team Description 09/07/2020 Hospital Encounter Department of [place] Tra nsplant Renal Laboratory Medicine ANODE ADJUSTER, C.N.P., (HCC) and [facility]ology, [facility] [address] [place] [address] [place] [address] [place], [place] (Work[place] [phone] Social History Tobacco Use Types Packs/Day Years [...] How often do you attend christianity or jewish Never 05/12/2021 services? Do you belong to [...] have completed or the highest Young, MEd, CAREER DEVELOPMENT SPECIALIST, ERNIE) degree you have received? Sex [...] Associated Comments Diagnosis TACROLIMUS LEVEL, B Routine 10/05/2020 8:21 AM Transplant Mary l Results for this SENIOR JAVA DEVELOPER (HCC) procedure are i n the results section. documented in this encounter Results Tacrolimus, B (10/05/2020 8:21 AM SENIOR JAVA DEVELOPER) athologist Signature Tacrolimus, B 6.2 5.0-15.0 10/08/2020 [facility] (Trough) 6:27 PM SENIOR JAVA DEVELOPER ng/mL Comment: ----ADDITIONAL INFORMATION---- Target steady-state trough concentration s vary depending on the type of transplant, concomitant immunosuppressio n, clinical/institutional protocols, and time post-transplant. Results should be interpreted in conjunction with this clinical information and any physic al signs/symptoms of rejection/toxicity. Testing performed by Liquid Chromatograp hy-Tandem Mass Spectrometry (LC-MS/MS). This test was developed and its performa nce characteristics determined by [facility] in a manner consistent with CLIA requirements. This test has not been cleared or approved by the [place]. [place] d and Drug Administration. Specimen Anatomical Collection Method Collection Time Receive d Time (Source) Location / / Volume Laterality Blood (Blood, 10/05/2020 8:21 AM 10/08/19 1:30 Venous) SENIOR JAVA DEVELOPER PM SENIOR JAVA DEVELOPER Resulting Agency Comment Mailed In Specimen Nasra Montalvo APRN, C.N.P., D.N.P. LAB BLOOD NON ADD -ON Performing Organization Address City/State/ZIP Code Phon e Number [facility] [address] [place] [address] SUPPORT CENTER [facility] [place] [address] Laboratory Medicine and Pathology [address] [place] documented in this encounter Visit Diagnoses Diagnosis Transplant Renal (HCC) documented in this encounter Care Teams Stencil Sprayer Relationship Specialty Start Date End Date [facility] Medicine [place] [address] [place], [place] [id number] documented as of this encounter
--- OUTSIDE RECORDS SUMMARY | 2022-08-23 10:01 | XMS_ITS | Encounter Summary ---
:1965 Author Organization [facility] Address [address] [place] [address] Care Team Providers Name Role Phone Unavailable Primary Care Provider Unavailable Reason for Visit Outpatient (Routine) - Closed Specialty Diagnoses / Procedures Referred By Contact Refer red To Contact Endocrinology Apollo Ty M.D. [facility] [address] [place], [place] [address] Referral ID Status Reason Start Date Expiration Date Visits Requ ested Visits Authorized [id number] Closed 06/18/2018 06/18/2019 1 1 Encounter Details Date Type Department Care Team Description 05/28/2020 Office Visit Division of Deejay Cordoba, Osteoporosis (Primary Endocrinology in M.D. Dx) [place], [place] [address] [facility] [address] [place] [phone] Social History Tobacco Use Types Packs/Day Years Used Date Smoking Tobacco: Never Smokeless Tobacco: Never Alcohol Habits Answer Date Recorded How often do you have a drink containing 4 or more times a w ione 05/12/2021 alcohol? How many drinks containing alcohol [...] 05/12/2021 relatives? How often do you attend faith or voodoo Never 05/12/2021 services? Do you belong to any clubs or organizations such No 05/12/2021 as faith groups, unions, fraternal or athletic groups, or [...] have completed or the highest Young, MEd, COOLING PAN TENDER, ERNIE) degree you have received? Sex Assigned at Date Recorded Male 05/27/2018 8:52 AM CDT documented as of this encounter Last Filed Vital Signs Vital Sign Reading Time Taken Comments Blood Pressure - - Pulse - - Temperature - - Respiratory Rate - - Oxygen Saturation - - Inhaled Oxygen Concentration - - Weight - - Height 188.1 cm (6' 2.06) 05/28/2020 3:22 PM CDT Body Mass Index - - documented in this encounter Consult Notes Deejay Cordoba M.D. - 05/28/2020 3:30 PM CDT SUBJECTIVE REFERRAL SOURCE Apollo Ty MD, Division of Endocrinology. 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 The patient was last seen by Dr. Lubin and Dr. Tucker Gonzalez in the Division of Endocrinology for this issue on June 03, 2018. 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 He was noted to have osteoporosis at the time ofhis transplant. He has developed stage 3 chronic kidney disease since then. He continues immunosuppression with prednisone 5 mg a day, with mycophenolate mofetil, and tacrolimus. The patient has continued Fosamax 70 mg once a week for the last two years. He has not had recent falls or clinical fractures. His spine imaging shows no evidence of asymptomatic vertebral compression fractures or rib fractures on his chest x-ray or entire spine films on May 25, 2020. The patient's bone density test on May 25, 2020, showed his lowest T-score to be -2.9 at his left femoral neck site, diagnostic of mild osteoporosis. His other hip T-scores ranged between -2.1 and-2.8 in the moderately osteopenic to mildly osteoporotic range. His L1-L3 lumbar spine T-score was -1.8, diagnostic of moderate osteopenia. Comparison to his previous values here on May 31, 2018, shows that his left total hip bone density has decreased by 0.8%, right total hip bone density increased by 2.8%, and lumbar spine bone density increased by 2.5%. None of these changes is statistically significant, indicating stability in his bone density over the last two years. The patient's L1-L3 lumbar spine trabecular bone score is 1.258, in the lower half of the normal range for men his age. The patient previously completed a five-year course of Fosamax before taking a drug holiday, and then resuming Fosamax two years ago. He has tolerated Fosamax for the last two years without GI distressor other side effects. His serum creatinine is increased at 1.61 mg/dL, with an eGFR of 48 mL/minute. He is aware that an EGFR of less than 35 mL/minute would represent a contraindication to Fosamax. He has not previously considered Reclast or Prolia. The patient continues to maintain excellent calcium and vitamin D intake. His dietary calcium intakeis estimated at 500 to 600 mg elemental calcium. He takes calcium carbonate + D 600 mg/400 International Units two tablets each day, in addition to a multivitamin each day. His serum 25-hydroxyvitamin D is excellent at 43 ng/mL (optimal, 20 to 50). The patient's laboratory studies on May 25, 2020, showed normal serum calcium, phosphorus, magnesium, and albumin. His serum total alkaline phosphatase was mildly decreased at 33 Units/L (normal, 40 to 129), likely due to the effect of Fosamax on suppressing bone formation. His serum parathyroid h ormone is increased at 82 pg/mL, but improved from 92 pg/mL on May 06, 2019 (normal, 15-65). Thismay be due to residual hyperparathyroidism from his previous end-stage renal disease prior to his kidney transplant in 2010, or alternatively, due to suboptimal calcium absorption or increased 24-hour urine calcium loss. His 24-hour urine calcium has not been measured directly but will be checked. The patient's family history is apparently unremarkable for osteoporosis, other metabolic bone disease, calcium-containing kidney stones, blue sclerae, or hyperextensible joints. He has not previously had calcium-containing kidney stones. No previous treatment with high-dose glucocorticoid therapy, anti- seizure medication, or over-replacement with L-thyroxine therapy. 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 He is also given a printed prescription for Prolia to consider and discuss with his insurance and other physicians. His insurance formulary apparently does not cover Prolia. Prolia would be safer to use with late stage 3 chronic kidney disease, or if his kidney function worsens. Prolia also would be more effective at increasing his bone density at his femoral neck and other sites over time. He is advised to continue to maintain total daily calcium intake at 1000 mg elemental calcium, with vitamin D intake of at least 600 International units each day. He appears to be achieving these goalsthrough his current diet and supplements. His serum 25-hydroxyvitamin D is excellent at 43 ng/mL (optimal, 20 to 50). His 24-hour urine calcium and creatinine was not able to be added to his stored urine from his 24-hour urine collection on May 25, 2020, so this will be checked separately at somepoint to make sure he does not have hypercalciuria. He is advised to continue to use care in situations likely to provoke falls. He will be cautious when lifting more than 10-15 pounds. Walking for exercise 3-4 days each week for 30-45 minutes each day should help protect his skeletal integrity. His bone density test should be rechecked in two years, unless he switches over to Prolia in the meantime, in which case it should be rechecked one year afterstarting Prolia. These issues were discussed in detail with the patient and his , and a variety of questions answered during his office visit today. PATIENT EDUCATION: Learning needs assessment was performed. No learning barriers were identified. Explained diagnosis and treatment plan. Patient expressed understanding and was able to teach back. This was an E4 visit for a total time spent with the patient of 25 minutes. Deejay Cordoba M.D. CT CT Job ID: [id number] documented in this encounter Plan of Treatment Not on filedocumented as of this encounter Visit Diagnoses Diagnosis Osteoporosis - Primary documented in this encounter
--- OUTSIDE RECORDS SUMMARY | 2022-08-23 10:01 | XMS_ITS | Encounter Summary ---
:1965 Author Organization [facility] Address [address] [place] [address] Care Team Providers Name Role Phone Unavailable Primary Care Provider Unavailable Reason for Visit Reason Comments Tacrolimus Adjustment Protocol Encounter Details Date Type Department Care Team Description 10/11/[address] [facility] Communication Center for Regla Barron, Adjustment Transplantation and Hermilo CCTN Protocol Clinical Regeneration [phone] in [facility] [address] [place] [address] Social History Tobacco Use Types Packs/Day Years [...] 05/12/2021 relatives? How often do you attend buddhist or church Never 05/12/2021 services? Do you belong to any clubs or organizations such No 05/12/2021 as buddhist groups, unions, fraternal or athletic groups, or [...] have completed or the highest Young, MEd, FINISHER WALLBOARD AND PLASTERBOARD, ERNIE) degree you have received? Sex Assigned at Date Recorded Male 05/27/2018 8:52 AM CDT documented as of this encounter Miscellaneous Notes Telephone Encounter - Regla Perez RMartha. - 10/11/2020 7:34 AM CST Tacrolimus 6.2 level within goal range of 6-8, per Tacrolimus Adjustment Protocol no dose change recommended. Current Tacrolimus dose 2mg twice a day. Other lab results received and reviewed, stable trends, continue monitoring every 3 months. SUCKER documented in this encounter Plan of Treatment Not on filedocumented as of this encounter Visit Diagnoses Not on filedocumented in this encounter Care Teams Shredder Tender Peat Relationship Specialty Start Date End Date [facility] of [facility] [place] [address] [place], [place] [address] documented as of this encounter
--- OUTSIDE RECORDS SUMMARY | 2022-08-23 10:01 | XMS_ITS | Encounter Summary ---
:1965 Author Organization [facility] Address [address] [place] [address] Care Team Providers Name Role Phone Unavailable Primary Care Provider Unavailable Encounter Details Date Type Department Care Team Description 09/06/2020 Orders Only [facility] for M, R.N., CCTN ([facility]) (Primary Dx) Transplantation and [phone] Clinical Regeneration in (Work) [place], [place] [address] [place] [address] Social History Tobacco Use Types Packs/Day Years Used Date Smoking Tobacco: Never Smokeless Tobacco: Never Alcohol Habits Answer Date Recorded How often do you have a drink containing 4 or more times a w [place] 05/12/2021 alcohol? How many drinks containing alcohol [...] How often do you attend evangelical or yazdanism Never 05/12/2021 services? Do you belong to [...] have completed or the highest Young, MEd, TRAILHEAD CONSTRUCTION WORKER, ERNIE) degree you have received? Sex Assigned at Date Recorded Male 05/27/2018 8:52 AM CDT documented as of this encounter Plan of Treatment Not on filedocumented as of this encounter Results Tacrolimus, B (09/13/2020 8:15 AM WATCH INSPECTOR FINAL MOVEMENT) athologist Signature Tacrolimus, B 5.2 5.0-15.0 09/17/2020 SDSC (Trough) 4:09 PM WATCH INSPECTOR FINAL MOVEMENT ng/mL Comment: ----ADDITIONAL INFORMATION---- Target steady-state trough concentration s vary depending on the type of transplant, concomitant immunosuppressio n, clinical/institutional protocols, and time post-transplant. Results should be interpreted in conjunction with this clinical information and any physic al signs/symptoms of rejection/toxicity. Testing performed by Liquid Chromatograp hy-Tandem Mass Spectrometry (LC-MS/MS). This test was developed and its performa nce characteristics determined by [facility] in a manner consistent with CLIA requirements. This test has not been cleared or approved by the [place] d and Drug Administration. Specimen Anatomical Collection Method Collection Time Receive d Time (Source) Location / / Volume Laterality Blood (Blood, 09/13/2020 8:15 AM 09/17/20 20 9:42 Venous) WATCH INSPECTOR FINAL MOVEMENT AM WATCH INSPECTOR FINAL MOVEMENT Resulting Agency Comment Mailed In Specimen Nasra Montalvo APRN, C.N.P., D.N.P. LAB BLOOD NON ADD -ON Performing Organization Address City/State/ZIP Code Phon e Number [facility] [address] [place], [place] [address] SUPPORT CENTER [facility] [place] [address] Laboratory Medicine and Pathology [address] [place] documented in this encounter Visit Diagnoses Diagnosis Transplant Renal (HCC) - Primary documented in this encounter Care Teams Third Loader Relationship Specialty Start Date End Date [facility] of Laboratory Medicine [place] [address] [place], [place] [address] documented as of this encounter
--- OUTSIDE RECORDS SUMMARY | 2022-08-23 10:01 | XMS_ITS | Encounter Summary ---
:1965 Author Organization [facility] Address [address] [place] [address] Care Team Providers Name Role Phone Unavailable Primary Care Provider Unavailable Reason for Referral Outpatient (Routine) - Closed Specialty Diagnoses / Procedures Referred By Contact Refer red To Contact Diagnoses Osteoporosis Apollo Ty M.D. [facility] Procedures BMD Vertebral Fracture Assessment [address] [place] [address] Referral ID Status Reason Start Date Expiration Date Visits Requ ested Visits Authorized [id number] Closed 04/15/2020 04/15/2021 1 1 Reason for Visit Outpatient (Routine) - Closed Specialty Diagnoses / Procedures Referred By Contact Refer red To Contact Diagnoses Osteoporosis Apollo Ty M.D. [facility] Procedures BMD Vertebral Fracture Assessment [address] [place] [address] Referral ID Status Reason Start Date Expiration Date Visits Requ ested Visits Authorized [id number] Closed 04/15/2020 04/15/2021 1 1 Encounter Details Date Type Department Care Team Description 05/25/2020 Hospital Encounter Department of Radiology, Apollo Ty M.D. [facility], in [address] [place] [address] 200 [facility] [address] [place] [address] [phone] Social History Tobacco Use Types Packs/Day Years Used Date Smoking Tobacco: Never Smokeless Tobacco: Never Alcohol Habits Answer Date Recorded How often do you have a drink containing 4 or more times a w [place] 05/12/2021 alcohol? How many drinks containing alcohol [...] 05/12/2021 relatives? How often do you attend zoroastrianism or episcopal Never 05/12/2021 services? Do you belong to any clubs or organizations such No 05/12/2021 as zoroastrianism groups, unions, fraternal or athletic groups, or [...] have completed or the highest Young, MEd, EXPEDITIONARY FIGHTING VEHICLE CREWMAN, ERNIE) degree you have received? Sex Assigned [...] calcium- mouth daily. 6 400 unit tablet Lactobacillus Take 1 tablet by 0 acidophilus [...] Name Priority Date/Time Associated Comments Diagnosis BMD VERTEBRAL RAD - Routine 05/25/2020 11:57 Osteoporosis Results f or this FRACTURE (most inpatients AM CDT procedure a re in ASSESSMENT and all the results outpatients) section. documented in this encounter Results BMD Vertebral Fracture Assessment (05/25/2020 11:57 AM CDT) Anatomical Region Laterality Modality Spine, Lumbar Spine, Thoracic Spine, Nuclear Medicine N/A Radiographic Imaging RST LOS, Musculoskeletal ARZ LOS, Muskuloskeletal FLA LOS Specimen (Source) Anatomical Collection Method Collection Time Re ceived Time Location / / Volume Laterality 05/25/2020 1:16 PM CDT Impressions 05/25/2020 1:17 PM CDT An A/P or M/P ratio of <70% is likely to indicate a vertebral compression fracture. ??An A/P or M/P ra leonard of <80% or an A/P or M/P Z-score of -2.0 or less may also suggest a vertebra l compression fracture. In either case, clinical correlation including review of the VFA images in QREADS is strongly recommended. ??Short vertebral heights a nd end plate abnormalities can be mistaken for vertebral fractures therefo re if there is diagnostic uncertainty then spine radiography with a radiologis t interpretation is recommended. Narrative 05/25/2020 1:17 PM CDT EXAM: ??BMD VERTEBRAL FRACTURE ASSESSMENT ----- VFA RESULTS ----- Region: T4 MPP Ratio: 91 ?? KEITH Ratio: 93 Region: T5 MPP Ratio: 93 ?? KEITH Ratio: 86 Region: T6 MPP Ratio: 90 ?? KEITH Ratio: 99 Region: T7 MPP Ratio: 85 ?? KEITH Ratio: 101 Region: T8 MPP Ratio: 97 ?? KEITH Ratio: 116 Region: T9 MPP Ratio: 90 ?? KEITH Ratio: 108 Region: T10 MPP Ratio: 89 ?? KEITH Ratio: 104 Region: T11 MPP Ratio: 83 ?? KEITH Ratio: 103 Region: T12 MPP Ratio: 85 ?? KEITH Ratio: 99 Region: L1 MPP Ratio: 91 ?? KEITH Ratio: 100 Region: L2 MPP Ratio: 90 ?? KEITH Ratio: 100 Region: L3 MPP Ratio: 91 ?? KEITH Ratio: 102 Region: L4 MPP Ratio: 89 ?? KEITH Ratio: 109 Procedure Note Bobby Velasco M.D. - 05/25/2020Format ting of this note might be different from the original. EXAM: BMD VERTEBRAL FRACTURE ASSESSMENT ----- VFA RESULTS ----- Region: T4 MPP Ratio: 91 KEITH Ratio: 93 Region: T5 MPP Ratio: 93 KEITH Ratio: 86 Region: T6 MPP Ratio: 90 KEITH Ratio: 99 Region: T7 MPP Ratio: 85 KEITH Ratio: 101 Region: T8 MPP Ratio: 97 KEITH Ratio: 116 Region: T9 MPP Ratio: 90 KEITH Ratio: 108 Region: T10 MPP Ratio: 89 KEITH Ratio: 104 Region: T11 MPP Ratio: 83 KEITH Ratio: 103 Region: T12 MPP Ratio: 85 KEITH Ratio: 99 Region: L1 MPP Ratio: 91 KEITH Ratio: 100 Region: L2 MPP Ratio: 90 KEITH Ratio: 100 Region: L3 MPP Ratio: 91 KEITH Ratio: 102 Region: L4 MPP Ratio: 89 KEITH Ratio: 109 IMPRESSION: An A/P or M/P ratio of <70% is likely to indicate a vertebral compression fracture. An A/P or M/P rati o of <80% or an A/P or M/P Z-score of -2.0 or less may also suggest a vertebra l compression fracture. In either case, clinical correlation including review of the VFA images in QREADS is strongly recommended. Short vertebral heights and end plate abnormalities can be mistaken for vertebral fractures therefo re if there is diagnostic uncertainty then spine radiography with a radiologis t interpretation is recommended. Apollo LOPEZ DXA PROCEDURES documented in this encounter Visit Diagnoses Diagnosis Osteoporosis documented in this encounter
--- OUTSIDE RECORDS SUMMARY | 2022-08-23 10:01 | XMS_ITS | Encounter Summary ---
:1965 Author Organization [facility] Address [address] [place] [address] Care Team Providers Name Role Phone Unavailable Primary Care Provider Unavailable Reason for Visit Reason Comments Tacrolimus Adjustment Protocol Encounter Details Date Type Department Care Team Description 12/31/2020 Clinical [place] Communication Center for Zabrina Reddy, Adjustment Transplantation and R.N., C.C.T. C. Protocol Clinical Regeneration [address] [facility] in [facility] [address] [address] [facility] [phone] [place], [place] (Work) [address] [phone] Social History Tobacco Use Types Packs/Day Years Used Date Smoking Tobacco: Never Smokeless Tobacco: Never Alcohol Habits Answer Date Recorded How often do you have a drink containing 4 or more times a w [place] 05/12/2021 alcohol? How many drinks containing alcohol [...] 05/12/2021 relatives? How often do you attend denominational or faith Never 05/12/2021 services? Do you belong to any clubs or organizations such No 05/12/2021 as denominational groups, unions, fraternal or athletic groups, or [...] have completed or the highest Young, MEd, DISTILLERY SUPERVISOR, ERNIE) degree you have received? Sex Assigned at Date Recorded Male 05/27/2018 8:52 AM CDT documented as of this encounter Miscellaneous Notes Telephone Encounter - Zabrina Marquez R.N., C.C.T.C. - 12/31/2020 3:17 PM CDT Tacrolimus level within goal range of 6-8, per Tacrolimus Adjustment Protocol no dose change recommended. Current Tacrolimus dose 2 mg twice a day . Other lab results received and reviewed, stable trends, continue monitoring every 3 months. documented in this encounter Plan of Treatment Not on filedocumented as of this encounter Visit Diagnoses Not on filedocumented in this encounter Care Teams Tour Counselor Relationship Specialty Start Date End Date [facility] of Laboratory Medicine [place] [address] [place], [place] [address] documented as of this encounter
--- OUTSIDE RECORDS SUMMARY | 2022-08-23 10:01 | XMS_ITS | Encounter Summary ---
:1965 Author Organization [facility] Address [address] [place] [address] Care Team Providers Name Role Phone Unavailable Primary Care Provider Unavailable Encounter Details Date Type Department Care Team Description 05/25/2020 Hospital Encounter Department of Radiology, Apollo Ty M.D. [facility], in [address] [place] [address] [place] [address] [place] [address] [phone] Social History Tobacco Use Types Packs/Day Years Used Date Smoking Tobacco: Never Smokeless Tobacco: Never Alcohol Habits Answer Date Recorded How often do you have a drink containing 4 or more times a w [place] 05/12/2021 alcohol? How many drinks containing alcohol [...] How often do you attend mormon or yazdanism Never 05/12/2021 services? Do you [...] have completed or the highest Young, MEd, PHOTOGRAPHIC LITHOGRAPHER, ERNIE) degree you have received? Sex Assigned [...] Name Priority Date/Time Associated Comments Diagnosis DX ENTIRE SPINE RAD - Routine 05/25/2020 3:19 Osteoporosis Results for this ANTERIOR (most inpatients PM CDT procedure a re in POSTERIOR AND and all the results LATERAL 2 VIEWS outpatients) section. documented in this encounter Results DX Entire Spine Anterior Posterior and Lateral 2 Views (05/25/2020 3:19 PM CDT) Anatomical Region Laterality Modality Spine, Musculoskeletal RST LOS, Neuroradiology ARZ N/A Digital Radiography LOS, Muskuloskeletal FLA LOS Specimen (Source) Anatomical Collection Method Collection Time Re ceived Time Location / / Volume Laterality 05/25/2020 3:30 PM CDT Impressions 05/25/2020 3:34 PM CDT Cervical, thoracic, and lumbar vertebral body heights are preserved without evidence of compression fracture . Mild straightening of the normal cervical lordosis may be positional or r elated to muscle spasm. No abnormal subluxations. Minimal thoracolumbar curv ature. Minimal facet arthropathy lower lumbar spine. Diffuse bony demineralizat ion. Suspect vascular calcifications left carotid bulb. Narrative 05/25/2020 3:34 PM CDT EXAM: ??DX ENTIRE SPINE ANTERIOR POSTERIOR AND LATERAL 2 VIEWS Procedure Note Cirilo Bustos M.D. - 05/25/2020Format ting of this note might be different from the original. EXAM: DX ENTIRE SPINE ANTERIOR POSTERIOR AND LATERAL 2 VIEWS IMPRESSION: Cervical, thoracic, and lumbar vertebral body heights are preserved without evidence of compression fracture . Mild straightening of the normal cervical lordosis may be positional or r elated to muscle spasm. No abnormal subluxations. Minimal thoracolumbar curv ature. Minimal facet arthropathy lower lumbar spine. Diffuse bony demineralizat ion. Suspect vascular calcifications left carotid bulb. Apollo Ty M.D. [facility] documented in this encounter Visit Diagnoses Diagnosis Osteoporosis documented in this encounter
--- OUTSIDE RECORDS SUMMARY | 2022-08-23 10:02 | XMS_ITS | Encounter Summary ---
:1965 Author Organization [facility] Address [address] [place] [address] Care Team Providers Name Role Phone Unavailable Primary Care Provider Unavailable Reason for Visit Outpatient (Routine) - Closed Specialty Diagnoses / Procedures Referred By Contact Refer red To Contact Transplant Surgery / Diagnoses Rah Soliz M.D. [place] [facility] [address] [place] [address] Referral ID Status Reason Start Date Expiration Date Visits Requ ested Visits Authorized [id number] Closed 03/04/2020 03/04/2021 1 1 Encounter Details Date Type Department Care Team Description 05/25/2020 Comprehensive Visit Department of [place], [facility] uppressed [facility] (Primary Dx); Dermatology in [place], Screening Exa mination [facility]; [facility] Angioma Howard ; [place] D.N.P. Nevi Multiple [address] [facility] [address] [place] [phone] Social History Tobacco Use Types Packs/Day Years Used Date Smoking Tobacco: Never Smokeless Tobacco: Never Alcohol Habits Answer Date Recorded How often do you have a drink containing 4 or more times a w [place] 05/12/2021 alcohol? How many drinks containing alcohol [...] How often do you attend gnosticist or restorationist Never 05/12/2021 services? Do you [...] have completed or the highest Young, MEd, MEATMAN, ERNIE) degree you have received? Sex Assigned at Date Recorded Male 05/27/2018 8:52 AM CDT documented as of this encounter Consult Notes [place] APRN, C.N.P., D.N.P. - 05/25/2020 3:40 PM CDT CHIEF COMPLAINT / REASON FOR VISIT Immunosuppressed state Skin cancer screening examination Supervised by: Dr. Pedro Henley ([phone]) Supervising cardiology consultants, Dr. Pedro Henley, was immediately available but consultation was not required. HISTORY OF PRESENT ILLNESS Mr. Tyler Morocho is a 54 y.o. male who presents today for a full skin cancer screening examination. The patient is status post a renal transplant in 2010 and is chronically immunosuppressed. The patient denies a history of skin cancer. The patient was last seen in the department in April 2019. The patient notes a new skin lesion involving the left lower eyelid that has been present for few months and asymptomatic. The patient denies areas that bleed or cause pain. He reports he is diligent withphoto protective measures Allergies Allergen Reactions ??? No Known Allergies Other (see comments) Current Outpatient Medications: ??? alendronate (FOSAMAX) 70 mg tablet, TAKE 1 TABLET (70 MG TOTAL) BY MOUTH ONCE A WEEK., Disp: 12 tablet, Rfl: 2 ??? aspirin [address] tablet, Take 81 mg by mouth daily. , Disp: , Rfl: ??? atorvastatin (LIPITOR) 20 mg tablet, Take 1 tablet (20 mg total) by mouth daily., Disp: 90 tablet, Rfl: 3 ??? calcium carbonate-vit D3-min 600 mg calcium- 400 unit tablet, Take 2 tablets by mouth. 6 , Disp:, Rfl: ??? Lactobacillus acidophilus (PROBIOTIC ORAL), Take 1 tablet by mouth daily., Disp: , Rfl: ??? multivitamin tablet, Take 1 tablet by mouth daily., Disp: , Rfl: ??? mycophenolate (CELLCEPT) 250 mg capsule, TAKE 2 CAPSULES BY MOUTH IN THE MORNING AND 1 CAPSULE BY MOUTH IN THE PM TEVA BRAND, Disp: 270 capsule, Rfl: 2 ??? omega-3 fatty acids-fish oil (FISH OIL) 300-1,000 mg capsule, Take 2 capsules by mouth daily. , Disp: , Rfl: ??? predniSONE (DELTASONE) 5 mg tablet, TAKE 1 TABLET BY MOUTH ONCE DAILY., Disp: 90 tablet, Rfl: 2 ??? tacrolimus (PROGRAF) 0.5 mg capsule, TAKE 1 CAPSULE BY MOUTH TWICE DAILY ALONG WITH 1MG CAP FOR TOTAL DOSE OF 2.5MG TWICE DAILY, Disp: 180 capsule, Rfl: 3 ??? tacrolimus (PROGRAF) 1 mg capsule, TAKE 2 CAPSULES BY MOUTH TWICE DAILY (ALONG WITH 0.5 MG CAP FOR TOTAL DOSE OF 2.5 MG TWICE DAILY), Disp: 360 capsule, Rfl: 2 No current facility-administered medications for this visit. PAST MEDICAL HISTORY Negative for skin cancer FAMILY HISTORY Negative for malignant melanoma PHYSICAL EXAM General: Awake, alert, in no acute distress, and with appropriate affect. Skin: I have examined the scalp, face, neck, chest, abdomen, back, buttocks, bilateral upper extremities, and bilateral lower extremities. Richter skin type I. There are few hyperpigmented macules and flesh-colored papules noted on exam, many of which were examined under dermoscopy with no concerning features seen. There are red, dome-shaped papules consistent with howard angiomas. Examination ofthe lesion in question on the left lower eyelid reveals a 1-2 mm, flesh-colored, pedunculated appearing papule. Examination of the fourth and fifth toenail on the left foot reveals a maroon/brown discoloration that appears consistent with a hematoma under the nail. Eyes: No scleral injection or icterus. No eyelid abnormalities. Lymph: No lower extremity edema. IMPRESSION / REPORT / PLAN #1 Skin cancer screening examination #2 Immunosuppressed state, status post renal transplant Reviewed increased risk of skin cancer secondary to chronic immunosuppression. Advised diligent use of sunscreens, sun-protective clothing, monthly skin checks, and to report any new or changing skin lesions. Recommended annual follow-up for a full skin cancer screening examination with Dermatology. #3 Benign-appearing nevi The ABCDE criteria for melanoma was reviewed with the patient. None of the patient's nevi reach the clinical threshold for biopsy. I recommend continued sun protection, self-skin examinations, and observation. Should any of the patient's nevi change in size, color, texture, or shape or develop symptoms such as itching or bleeding, I recommend an immediate return visit for reassessment. #4 Howard angiomas The benign nature of the skin lesion(s) was discussed with the patient. No treatment is required. I recommend continued observation. Should symptoms or changes develop related to this condition, I would recommend a return visit for reassessment. #5 Acrochordon versus seborrheic keratosis, left lower eyelid The lesion examined involving the left lower eyelid appears benign under dermoscopy. The patient will continue to monitor the lesion and follow up with Dermatology if he notices changes. #6 Subungual hematoma of the fourth and fifth left toenails Examination of discoloration noted on the fourth and fifth toenails appears consistent with trauma. We discussed it may take months for the discoloration to completely grow outward with nail. The patient will follow up with Dermatology if he does not notice outward growth of discoloration over the next six months. All questions answered. PATIENT EDUCATION Ready to learn. No apparent learning barriers were identified. Learning preferences include listening. Explained diagnosis and treatment plan; patient/guardian of patient expressed understanding of thecontent. documented in this encounter Plan of Treatment Not on filedocumented as of this encounter Visit Diagnoses Diagnosis Immunosuppressed State - Primary Screening Examination Skin Cancer Angioma Howard Nevi Multiple documented in this encounter
--- OUTSIDE RECORDS SUMMARY | 2022-08-23 10:02 | XMS_ITS | Encounter Summary ---
:1965 Author Organization [facility] Address [address] [place] [address] Care Team Providers Name Role Phone Unavailable Primary Care Provider Unavailable Encounter Details Date Type Department Care Team Description 03/12/2020 [facility] AND Reddy De La Cruz M.D. [address] [place] [address] [place] [address] [place] [address] [phone] (Wo rk) Social History Tobacco Use Types [...] How often do you attend lutheran or methodist Never 05/12/2021 services? Do you belong to [...] 05/08/2019 you have completed or the highest Macy Vidal, POSTAL INSPECTOR, ERNIE) degree you have received? Sex Assigned at Date Recorded Male 05/27/2018 8:52 AM CDT documented as of this encounter Plan of Treatment Not on filedocumented as of this encounter Visit Diagnoses Not on filedocumented in this encounter Care Teams Service Delivery Manager Relationship Specialty Start Date End Date [facility] [place] [address] [place], [place] [address] documented as of this encounter
--- OUTSIDE RECORDS SUMMARY | 2022-08-23 10:02 | XMS_ITS | Encounter Summary ---
:1965 Author Organization [facility] Address [address] [place] [address] Care Team Providers Name Role Phone Unavailable Primary Care Provider Unavailable Reason for Visit Appointment Request (Routine) - Closed Specialty Diagnoses / Procedures Referred By Contact Refer red To Contact Transplant Kidney Pancreas Referral ID Status Reason Start Date Expiration Date Visits Requ ested Visits Authorized [id number] Closed 02/24/2020 02/23/2021 1 1 Encounter Details Date Type Department Care Team Description 05/25/2020 Office Visit Joey Lakhania, N[place]ritta Transp lant Renal (HCC) (Primary Dx); Center for S, M.D. Immunosuppressed State; Transplantation and [address] Hyperpar athyroidism Renal Secondary (HCC); Clinical Regeneration SW Osteopenia; in [place], [facility] rotary cutter Edward, Bone Metabolic Disease [address] [place] [phone] Social History Tobacco Use Types Packs/Day Years Used Date Smoking Tobacco: Never Smokeless Tobacco: Never Alcohol Habits Answer Date Recorded How often do you have a drink containing 4 or more times a w [place] ira 05/12/2021 alcohol? How many drinks containing alcohol [...] How often do you attend mu-ism or yarsani Never 05/12/2021 services? Do you belong to [...] have completed or the highest Young, MEd, METALLURGICAL ENGINEER, ERNIE) degree you have received? Sex Assigned at Date Recorded Male 05/27/2018 8:52 AM CDT documented as of this encounter Last Filed Vital Signs Vital Sign Reading Time Taken Comments Blood Pressure 102/71 05/25/2020 1:13 PM CDT Pulse 80 05/25/2020 1:13 PM CDT Temperature - - Respiratory Rate - - Oxygen Saturation - - Inhaled Oxygen Concentration - - Weight 77.7 kg (171 lb 4.8 oz) 05/25/2020 1:13 PM CDT Height - - Body Mass Index 22.48 05/12/2019 7:04 AM CDT documented in this encounter H&P Notes Rah Soliz M.D. - 05/25/2020 1:30 PM CDT KIDNEY TRANSPLANT FOLLOW UP VISIT REASON FOR VISIT: Tyler Morocho is a 54 y.o. male who presents for kidney transplant and immunosuppression management follow up. He is here for his annual visit. 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 Had Campath induction at that time has been maintained on triple immunosuppression including tacrolimus, CellCept and prednisone. Early on post transplantation had hyperglycemia with high fasting glucose but this has resolved after weight loss he still has some morning hyperglycemia but normal hemoglobin A1c about 5.2%. His last kidney biopsy as part of surveillance was done in April2016 that did not show recurrence of IgA nephropathy and there was mild tubular atrophy interstitialfibrosis with no major chronic findings. At some point he had low-grade BK viremia but he had been subjected to reduced CellCept does his BK virus has not been detected anymore. He did not have any major health events or changes over the last year since he was last seen April 2019. He had been seen in the [facility] for his osteopenia and he is followingwith this clinic soon. His kidney allograft function has been stable and HIS Iothalamate GFR clearance looked good this year. His vitamin-D level is great at 43. His tacrolimus trough level for some reason was not performed-as he recently has been getting refills with different generic tacrolimus. We discussed the importance of sticking with one type of generics to avoid any problems with changes in the trough levels and this have him have low exposure to the drug. His blood pressure control has been okay. No BK virus detected in the blood. More importantly does not have any evidence of hematuria or albuminuria/proteinuria. REVIEW OF SYSTEMS: A comprehensive review of systems was obtained and was otherwise negative except what mentioned in the HPI. Answers for HPI/ROS submitted by the patient were reviewed by me when available. PAST MEDICAL AND SURGICAL HISTORIES: Medical records reviewed by me and discussed with the patient and noted below. History reviewed. No pertinent past medical history. Past Surgical History: Procedure Laterality Date ??? ANAL SPHINCTEROTOMY N/A 11/14/2011 >Left lateral internal sphincterotomy. ??? TRANSPLANT KIDNEY - RECIPIENT OF LIVING [...] BY MOUTH ONCE A WEEK. 12 tablet 2 ??? aspirin [address] tablet Take 81 mg by mouth daily. ??? atorvastatin (LIPITOR) 20 mg tablet Take 1 tablet (20 mg total) by mouth daily. 90 tablet 3 ??? calcium carbonate-vit D3-min 600 mg calcium- 400 unit tablet Take 2 tablets by mouth. 6 ??? Lactobacillus acidophilus (PROBIOTIC ORAL) Take 1 tablet by mouth daily. ??? mycophenolate (CELLCEPT) 250 mg capsule TAKE 2 CAPSULES BY MOUTH IN THE MORNING AND 1 CAPSULE BYMOUTH IN THE PM TEVA BRAND 270 capsule 2 ??? omega-3 fatty acids-fish oil (FISH OIL) 300-1,000 mg capsule Take 2 capsules by mouth daily. ??? predniSONE (DELTASONE) 5 mg tablet TAKE 1 TABLET BY MOUTH ONCE DAILY. 90 tablet 2 ??? tacrolimus (PROGRAF) 0.5 mg capsule TAKE 1 CAPSULE BY MOUTH TWICE DAILY ALONG WITH 1MG CAP FOR TOTAL DOSE OF 2.5MG TWICE DAILY 180 capsule 3 ??? tacrolimus (PROGRAF) 1 mg capsule TAKE 2 CAPSULES BY MOUTH TWICE DAILY (ALONG WITH 0.5 MG CAP FOR TOTAL DOSE OF 2.5 MG TWICE DAILY) 360 capsule 2 ??? multivitamin tablet Take 1 tablet by mouth daily. No current facility-administered medications on file prior to visit. PHYSICAL EXAM: BP 102/71 Pulse 80 Wt 77.7 kg BMI 22.48 kg/m?? , Body mass index is 22.48 kg/m??. GENERAL APPEARANCE: alert and no acute distress SKIN: no acute rash LYMPHATICS: no cervical adenopathy LUNGS: clear to auscultation bilaterally CARDIOVASCULAR: regular rhythm, normal rate, no murmurs; no LE edema bilaterally ABDOMEN: soft, nondistended EXTREMETIES: extremities normal - no gross deformities noted NEURO: grossly nonfocal ASSESSMENT, REPORT & PLAN: 1. Status post preemptive living unrelated donor kidney transplant April 2011: His kidney allograftfunction has been great and stable 2. Immunosuppression management: Will continue current immunosuppression medication we need to make sure his tacrolimus trough level remain therapeutic between 6 to 8-as he has been dispensed differentgeneric tacrolimus 3. End-stage renal disease due to IgA nephropathy: Previously there was no evidence of IgA recurrence on the protocol kidney transplant biopsies done earlier 4. History of low grade BK viremia: BK virus in the blood has been negative 5. Osteopenia: We discussed the bone density scan from this year that showed stabilization of his osteopenia. His vitamin-D level is okay, he is following with the [facility]. He has been on weekly Fosamax. 6. History of gout 7. Secondary hyperparathyroidism: As above; his vitamin D level is okay and he is following with [facility]. Overall his annual evaluation looked good. His Iothalamate GFR clearance is great and stable and he does not have any albuminuria or proteinuria. documented in this encounter Plan of Treatment Not on filedocumented as of this encounter Visit Diagnoses Diagnosis Transplant Renal (HCC) - Primary Immunosuppressed State Hyperparathyroidism Renal Secondary (HCC ) Osteopenia Bone Metabolic Disease documented in this encounter
--- OUTSIDE RECORDS SUMMARY | 2022-08-23 10:02 | XMS_ITS | Encounter Summary ---
:1965 Author Organization [facility] Address [address] [place] [address] Care Team Providers Name Role Phone Unavailable Primary Care Provider Unavailable Reason for Visit Reason Comments Med Refill Encounter Details Date Type Department Care Team Description 05/04/2020 Refill Division of Nephrology and Ortiz Betts M.D. Med Refill Hypertension in [place], [address] [place] [address] [place] [address] [place], [place] [phone] Social History Tobacco Use Types Packs/Day Years Used Date Smoking Tobacco: Never Smokeless Tobacco: Never Alcohol Habits Answer Date Recorded How often do you have a drink containing 4 or more times a w [place] 05/12/2021 alcohol? How many drinks containing alcohol [...] How often do you attend pentecostal or sikhism Never 05/12/2021 services? Do you belong to [...] have completed or the highest Young, Macy, HORIZONTAL BORING MILL OPERATOR, ERNIE) degree you have received? Sex Assigned at Date Recorded Male 05/27/2018 8:52 AM CDT documented as of this encounter Plan of Treatment Not on filedocumented as of this encounter Visit Diagnoses Diagnosis Transplant Renal (HCC) documented in this encounter
--- OUTSIDE RECORDS SUMMARY | 2022-08-23 10:02 | XMS_ITS | Encounter Summary ---
:1965 Author Organization [facility] Address [address] [place] [address] Care Team Providers Name Role Phone Unavailable Primary Care Provider Unavailable Encounter Details Date Type Department Care Team Description 12/10/2019 Hospital Encounter [facility] of [place] [facility] Renal Laboratory Medicine CAR RIDER, C.N.P., (HCC) and Pathology, D.N.PPending Sale To [facility] in [address] [place] [phone] [place] [address] [place], [place] (Work) [phone] Social History Tobacco Use Types Packs/Day Years Used Date Smoking Tobacco: Never Smokeless Tobacco: Never Alcohol Habits Answer Date Recorded How often do you have a drink containing 4 or more times a w tolowa dee-ni' 05/12/2021 alcohol? How many drinks containing alcohol [...] How often do you attend voodoo or sikh Never 05/12/2021 services? Do you [...] have completed or the highest Young, MEd, CUTTER HOT KNIFE, ERNIE) degree you have received? Sex Assigned [...] calcium- mouth daily. 6 400 unit tablet multivitamin tablet Take 1 tablet by 0 03/23/2014 mouth daily. omega-3 fatty acids-fish Take 1 capsule by 0 04/26 oil 300-1,000 mg per mouth daily. capsule alendronate (FOSAMAX) 70 TAKE 1 TABLET (70 12 tablet 3 03/2502/13/2020 mg tablet MG TOTAL) BY MOUTH ONCE A WEEK. mycophenolate (CELLCEPT) Take 1-2 capsules 270 capsule 3 02/13/2020 250 mg (250-500 mg total) capsuleIndications: by mouth as Transplant Renal (HCC) directed. predniSONE (DELTASONE) 5 Take 1 tablet (5 mg 90 tablet 3 05/07/2020 mg tabletIndications: total) by mouth Transplant Renal (HCC) daily. tacrolimus (PROGRAF) 0.5 Take 1 capsule (0.5 60 capsule 11 02/12/2020 mg capsule mg total) by mouth 2 (two) times a day. With 1mg capsules for total dose of 2.5mg twice daily tacrolimus (PROGRAF) 1 Take 2 capsules (2 120 capsule 11 05/201902/12/2020 mg capsule mg total) by mouth 2 (two) times a day. With 0.5mg capsules for total dose of 2.5mg twice daily. documented as of this encounter Plan of Treatment Not on filedocumented as of this encounter Procedures Procedure Name Priority Date/Time Associated Comments Diagnosis TACROLIMUS LEVEL, B Routine 01/27/2020 8:33 AM Transplant Mary l Results for this CDT (HCC) procedure are i n the results section. documented in this encounter Results Tacrolimus, B (01/27/2020 8:33 AM CDT) athologist Signature Tacrolimus, B 6.5 5.0-15.0 01/30/2020 [facility] (Trough) 11:02 AM CDT ng/mL Comment: ----ADDITIONAL INFORMATION---- Target [...] its performa nce characteristics determined by [facility] in a manner consistent with CLIA requirements. This test has not been cleared or approved by the [place] d and Drug Administration. Specimen Anatomical Collection Method Collection Time Receive d Time (Source) Location / / Volume Laterality Blood (Blood, 01/27/2020 8:33 AM 01/30/20 6:15 Venous) CDT AM CDT Resulting Agency Comment Mailed In Specimen Nasra Montalvo APRN, C.N.P., D.N.P. LAB BLOOD NON ADD -ON Performing Organization Address City/State/ZIP Code Phon e Number [facility] [address] [place] [phone] [address] [facility] [place] [address] Laboratory Medicine and Pathology [address] [place] documented in this encounter Visit Diagnoses Diagnosis Transplant Renal (HCC) documented in this encounter
--- OUTSIDE RECORDS SUMMARY | 2022-08-23 10:02 | XMS_ITS | Encounter Summary ---
:1965 Author Organization [facility] Address [address] [place] [address] Care Team Providers Name Role Phone Unavailable Primary Care Provider Unavailable Reason for Referral Outpatient (Routine) - Closed Specialty Diagnoses / Procedures Referred By Contact Refer red To Contact Radiology Diagnoses Osteoporosis Apollo Ty M.D. Procedures BMD Bone Density Spine Hips BMD BONE DENSITY SPINE HIPS CT DEXA BONE DENSITY AXIAL FOUNDATION HC XR DEXA AXIAL SKLTN [address] [place] [address] Referral ID Status Reason Start Date Expiration Date Visits Requ ested Visits Authorized [id number] Closed 06/18/2018 06/18/2019 1 1 Reason for Visit Outpatient (Routine) - Closed Specialty Diagnoses / Procedures Referred By Contact Refer red To Contact Radiology Diagnoses Osteoporosis Apollo Ty M.D. Procedures BMD Bone Density Spine Hips BMD BONE DENSITY SPINE HIPS CT DEXA BONE DENSITY AXIAL FOUNDATION HC XR DEXA AXIAL SKLTN [address] [place], [place] [address] Referral ID Status Reason Start Date Expiration Date Visits Requ ested Visits Authorized [id number] Closed 06/18/2018 06/18/2019 1 1 Encounter Details Date Type Department Care Team Description 05/25/2020 Hospital Encounter Department of Radiology, Apollo Ty M.D. [facility], in [address] [place] [address] [place] [address] [place] [address] [phone] Social History Tobacco Use Types Packs/Day Years Used Date Smoking Tobacco: Never Smokeless Tobacco: Never Alcohol Habits Answer Date Recorded How often do you have a drink containing 4 or more times a w paiute-shoshone 05/12/2021 alcohol? How many drinks containing alcohol [...] 05/12/2021 relatives? How often do you attend nondenominational or bahai Never 05/12/2021 services? Do you belong to any clubs or organizations such No 05/12/2021 as nondenominational groups, unions, fraternal or athletic groups, or [...] have completed or the highest Young, MEd, WILL CALL CLERK, ERNIE) degree you have received? Sex [...] Diagnosis BMD BONE DENSITY RAD - Routine 05/25/2020 12:20 Osteoporosis Result s for this SPINE HIPS (most inpatients PM CDT procedure a re in and all the results outpatients) section. documented in this encounter Results BMD Bone Density Spine Hips (05/25/2020 12:20 PM CDT) Anatomical Region Laterality Modality Hip, Lumbar Spine, Nuclear Medicine RST LOS, N/A Radiographic Imaging Musculoskeletal ARZ LOS, Muskuloskeletal FLA LOS Specimen (Source) Anatomical Collection Method Collection Time Re ceived Time Location / / Volume Laterality 05/25/2020 12:45 PM CDT Impressions 05/25/2020 12:45 PM CDT Osteoporosis Narrative 05/25/2020 12:45 PM CDT EXAM: ??BMD BONE DENSITY SPINE HIPS COMPARISON: Serial Comparisons Left Total Hip results: ?06/08/2011 ?BMD: ??0.729 g/cm( sq), T Score: -2.6 ?05/21/2012 ?BMD: ??0.755 g/cm( sq), T Score: -2.4 ?05/08/2014 ?BMD: ??0.782 g/cm( sq), T Score: -2.2 ?05/23/2016 ?BMD: ??0.798 g/cm( sq), T Score: -2.1 ?05/31/2018 ?BMD: ??0.760 g/cm( sq), T Score: -2.4 ?05/25/2020 ?BMD: ??0.754 g/cm( sq), T Score: -2.4 ?Change vs. Previous (difference): ? -0.006 g/cm(sq) ?Change vs. Previous (%): ??-0.8% ?The least significant change in BM D for the Total Hip ?is 0.036 g/cm(sq) ?The absolute BMD change from previ ous, ??0.006g/cm(sq), is ?less than the least significant ch cris. ?The absolute BMD change from basel ine, ??0.025g/cm(sq), is ?less than the least significant ch cris. Right Total Hip results: ?06/08/2011 ?BMD: ??0.764 g/cm( sq), T Score: -2.4 ?05/21/2012 ?BMD: ??0.779 g/cm( sq), T Score: -2.2 ?05/08/2014 ?BMD: ??0.821 g/cm( sq), T Score: -1.9 ?05/23/2016 ?BMD: ??0.838 g/cm( sq), T Score: -1.8 ?05/31/2018 ?BMD: ??0.779 g/cm( sq), T Score: -2.2 ?05/25/2020 ?BMD: ??0.801 g/cm( sq), T Score: -2.1 ?Change vs. Previous (difference): ?0.022 g/cm(sq) ?Change vs. Previous (%): ??2.8% ?The least significant change in BM D for the Total Hip ?is 0.036 g/cm(sq) ?The absolute BMD change from previ ous, ??0.022g/cm(sq), is ?less than the least significant ch cris. ?The absolute BMD change from basel ine, ??0.037g/cm(sq), is ?greater than the least significant change. Combined Total Hip results: ?06/08/2011 ?BMD: ??0.747 g/cm( sq), T Score: -2.5 ?05/21/2012 ?BMD: ??0.767 g/cm( sq), T Score: -2.3 ?05/08/2014 ?BMD: ??0.802 g/cm( sq), T Score: -2.1 ?05/23/2016 ?BMD: ??0.818 g/cm( sq), T Score: -2.0 ?05/31/2018 ?BMD: ??0.770 g/cm( sq), T Score: -2.3 ?05/25/2020 ?BMD: ??0.778 g/cm( sq), T Score: -2.3 ?Change vs. Previous (difference): ?0.008 g/cm(sq) ?Change vs. Previous (%): ??1.0% ?The least significant change in BM D for the Total Hip ?is 0.036 g/cm(sq) ?The absolute BMD change from previ ous, ??0.008g/cm(sq), is ?less than the least significant ch cris. ?The absolute BMD change from basel ine, ??0.031g/cm(sq), is ?less than the least significant ch cris. Spine results: ?06/08/2011 ?BMD: ??0.925 g/cm( sq), T Score: -2.5 ?05/21/2012 ?BMD: ??1.002 g/cm( sq), T Score: -1.9 ?05/08/2014 ?BMD: ??1.062 g/cm( sq), T Score: -1.3 ?05/23/2016 ?BMD: ??1.036 g/cm( sq), T Score: -1.5 ?05/31/2018 ?BMD: ??0.972 g/cm( sq), T Score: -2.0 ?05/25/2020 ?BMD: ??0.996 g/cm( sq), T Score: -1.8 ?Change vs. Previous (difference): ?0.024 g/cm(sq) ?Change vs. Previous (%): ??2.5% ?The least significant change in BM D for the Spine is 0.041 g/cm(sq) ?The absolute BMD change from previ ous, ??0.024g/cm(sq), is ?less than the least significant ch cris. ?The absolute BMD change from basel ine, ??0.071g/cm(sq), is ?greater than the least significant change. FINDINGS: Left Hip [single scan]: ?Femur Neck: BMD = ??0.690 g/cm (sq ) ?T-score = -2.9 ?Z-score = - 2.2 ?Total Hip: BMD = ??0.754 g/cm (sq) ?T-score = -2.4 ?Z-score = - 2.0 Right Hip [single scan]: ?Femur Neck: BMD = ??0.702 g/cm (sq ) ?T-score = -2.8 ?Z-score = - 2.1 ?Total Hip: BMD = ??0.801 g/cm (sq) ?T-score = -2.1 ?Z-score = - 1.7 Lumbar Spine ??[single scan]: ?L1: BMD = 0.957 g/cm (sq), T-score =-1.8, Z-score =-1.5 ?L2: BMD = 0.985 g/cm (sq), T-score =-2.2, Z-score =-2.0 ?L3: BMD = 1.047 g/cm (sq), T-score =-1.7, Z-score =-1.5 ?Total Lumbar Spine: BMD = ??0.996 g/cm (sq) ?T-score = -1.8 ?Z-score = - 1.6 Trabecular Bone Scores: ?L1-L3: TBS = 1.258 Please note: A more comprehensive DXA re port, including images and graphs, is available in QREADS. ?In the absence of other causes of low BMD or demonstrated skeletal ?fragility, osteoporosis may be donte gnosed in post-menopausal ? women when the T-score i s at or below -2.5 as defined by ?the WHO. Osteopenia is present at T-scores between -1 and -2.5 and ?normal BMD when T-score is at or a elias -1.0. The diagnosis in ?pre-menopausal women and men can b e based on low bone mass or ?evidence of skeletal fragility in the appropriate clinical setting. Degenerative changes are present which m ay spuriously elevate the spine BMD measurement. Patient does not meet ISCD guidelines fo r FRAX calculations. Procedure Note Bobby Velasco M.D. - 05/25/2020Format ting of this note might be different from the original. EXAM: BMD BONE DENSITY SPINE HIPS COMPARISON: Serial Comparisons Left Total Hip results: 06/08/2011 BMD: 0.729 g/cm(sq), T Score : -2.6 05/21/2012 BMD: 0.755 g/cm(sq), T Score : -2.4 05/08/2014 BMD: 0.782 g/cm(sq), T Score : -2.2 05/23/2016 BMD: 0.798 g/cm(sq), T Score : -2.1 05/31/2018 BMD: 0.760 g/cm(sq), T Score : -2.4 05/25/2020 BMD: 0.754 g/cm(sq), T Score : -2.4 Change vs. Previous (difference): -0.00 6 g/cm(sq) Change vs. Previous (%): -0.8% The least significant change in BMD for the Total Hip is 0.036 g/cm(sq) The absolute BMD change from previous, 0.006g/cm(sq), is less than the least significant change. The absolute BMD change from baseline, 0.025g/cm(sq), is less than the least significant change. Right Total Hip results: 06/08/2011 BMD: 0.764 g/cm(sq), T Score : -2.4 05/21/2012 BMD: 0.779 g/cm(sq), T Score : -2.2 05/08/2014 BMD: 0.821 g/cm(sq), T Score : -1.9 05/23/2016 BMD: 0.838 g/cm(sq), T Score : -1.8 05/31/2018 BMD: 0.779 g/cm(sq), T Score : -2.2 05/25/2020 BMD: 0.801 g/cm(sq), T Score : -2.1 Change vs. Previous (difference): 0.022 g/cm(sq) Change vs. Previous (%): 2.8% The least significant change in BMD for the Total Hip is 0.036 g/cm(sq) The absolute BMD change from previous, 0.022g/cm(sq), is less than the least significant change. The absolute BMD change from baseline, 0.037g/cm(sq), is greater than the least significant riggins ge. Combined Total Hip results: 06/08/2011 BMD: 0.747 g/cm(sq), T Score : -2.5 05/21/2012 BMD: 0.767 g/cm(sq), T Score : -2.3 05/08/2014 BMD: 0.802 g/cm(sq), T Score : -2.1 05/23/2016 BMD: 0.818 g/cm(sq), T Score : -2.0 05/31/2018 BMD: 0.770 g/cm(sq), T Score : -2.3 05/25/2020 BMD: 0.778 g/cm(sq), T Score : -2.3 Change vs. Previous (difference): 0.008 g/cm(sq) Change vs. Previous (%): 1.0% The least significant change in BMD for the Total Hip is 0.036 g/cm(sq) The absolute BMD change from previous, 0.008g/cm(sq), is less than the least significant change. The absolute BMD change from baseline, 0.031g/cm(sq), is less than the least significant change. Spine results: 06/08/2011 BMD: 0.925 g/cm(sq), T Score : -2.5 05/21/2012 BMD: 1.002 g/cm(sq), T Score : -1.9 05/08/2014 BMD: 1.062 g/cm(sq), T Score : -1.3 05/23/2016 BMD: 1.036 g/cm(sq), T Score : -1.5 05/31/2018 BMD: 0.972 g/cm(sq), T Score : -2.0 05/25/2020 BMD: 0.996 g/cm(sq), T Score : -1.8 Change vs. Previous (difference): 0.024 g/cm(sq) Change vs. Previous (%): 2.5% The least significant change in BMD for the Spine is 0.041 g/cm(sq) The absolute BMD change from previous, 0.024g/cm(sq), is less than the least significant change. The absolute BMD change from baseline, 0.071g/cm(sq), is greater than the least significant riggins ge. FINDINGS: Left Hip [single scan]: Femur Neck: BMD = 0.690 g/cm (sq) T-score = -2.9 Z-score = -2.2 Total Hip: BMD = 0.754 g/cm (sq) T-score = -2.4 Z-score = -2.0 Right Hip [single scan]: Femur Neck: BMD = 0.702 g/cm (sq) T-score = -2.8 Z-score = -2.1 Total Hip: BMD = 0.801 g/cm (sq) T-score = -2.1 Z-score = -1.7 Lumbar Spine [single scan]: L1: BMD = 0.957 g/cm (sq), T-score =-1. 8, Z-score =-1.5 L2: BMD = 0.985 g/cm (sq), T-score =-2. 2, Z-score =-2.0 L3: BMD = 1.047 g/cm (sq), T-score =-1. 7, Z-score =-1.5 Total Lumbar Spine: BMD = 0.996 g/cm (s q) T-score = -1.8 Z-score = -1.6 Trabecular Bone Scores: L1-L3: TBS = 1.258 Please note: A more comprehensive DXA re port, including images and graphs, is available in 2heuresavant. In the absence of other causes of low B MD or demonstrated skeletal fragility, osteoporosis may be diagnose d in post-menopausal women when the T-score is at or below -2.5 as defined by the WHO. Osteopenia is present at T-sco res between -1 and -2.5 and normal BMD when T-score is at or above -1.0. The diagnosis in pre-menopausal women and men can be bas ed on low bone mass or evidence of skeletal fragility in the a ppropriate clinical setting. Degenerative changes are present which m ay spuriously elevate the spine BMD measurement. Patient does not meet ISCD guidelines fo r FRAX calculations. IMPRESSION: Osteoporosis Apollo LOPEZ DXA PROCEDURES documented in this encounter Visit Diagnoses Diagnosis Osteoporosis documented in this encounter
--- OUTSIDE RECORDS SUMMARY | 2022-08-23 10:02 | XMS_ITS | Encounter Summary ---
:1965 Author Organization [facility] Address [address] [place] [address] Care Team Providers Name Role Phone Unavailable Primary Care Provider Unavailable Encounter Details Date Type Department Care Team Description 01/21/2020 Clinical Communication Leticia Hopper [facility] for M, P.A.-C., M.S. Transplantation and [address] [place] [address] in [facility] [address] [place] [address] [place], [place] (Work) [address] [phone] Social History Tobacco Use Types Packs/Day Years Used Date Smoking Tobacco: Never Smokeless Tobacco: Never Alcohol Habits Answer Date Recorded How often do you have a drink containing 4 or more times a w [place] 05/12/2021 alcohol? How many drinks containing alcohol [...] 05/12/2021 relatives? How often do you attend baptism or amish Never 05/12/2021 services? Do you belong to any clubs or organizations such No 05/12/2021 as baptism groups, unions, fraternal or athletic groups, or [...] have completed or the highest Young, MEd, CONTACT CENTRE SUPERVISOR, ERNIE) degree you have received? Sex Assigned at Date Recorded Male 05/27/2018 8:52 AM CDT documented as of this encounter Plan of Treatment Not on filedocumented as of this encounter Results Tacrolimus, B (09/01/2020 7:30 AM ELEMENTARY SCHOOL ART TEACHER) athologist Signature Tacrolimus, B 9.5 5.0-15.0 09/05/2020 [facility] (Trough) 12:32 PM ELEMENTARY SCHOOL ART TEACHER ng/mL Comment: ----ADDITIONAL INFORMATION---- Target steady-state trough concentration s vary depending on the type of transplant, concomitant immunosuppressio n, clinical/institutional protocols, and time post-transplant. Results should be interpreted in conjunction with this clinical information and any physic al signs/symptoms of rejection/toxicity. Testing performed by Liquid Chromatograp hy-Tandem Mass Spectrometry (LC-MS/MS). This test was developed and its performa nce characteristics determined by [facility] in a manner consistent with CLIA requirements. This test has not been cleared or approved by the U.S. Margarita d and Drug Administration. Specimen Anatomical Collection Method Collection Time Receive d Time (Source) Location / / Volume Laterality Blood (Blood, 09/01/2020 7:30 AM 09/05/20 7:47 Venous) ELEMENTARY SCHOOL ART TEACHER AM ELEMENTARY SCHOOL ART TEACHER Resulting Agency Comment Mailed In Specimen Kami Suárez P.A.-C., M.S. LAB BLOOD NON ADD-ON Performing Organization Address City/State/ZIP Code Phon e Number [facility] [address] [place] [address] [facility] [place] [address] Laboratory Medicine and Pathology [address] 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
--- OUTSIDE RECORDS SUMMARY | 2022-08-23 10:02 | XMS_ITS | Encounter Summary ---
:1965 Author Organization [facility] Address [address] [place] [address] Care Team Providers Name Role Phone Unavailable Primary Care Provider Unavailable Encounter Details Date Type Department Care Team Description 01/23/2020 Hospital Encounter Department of Kami Suárez Renal Laboratory Medicine MJames-C., M.S. ([facility]) and Pathology, [address] [place] [address] in [facility] [address] [place] [phone] [place] [address] (Work) [place] [address] Social History Tobacco Use Types Packs/Day Years Used Date Smoking Tobacco: Never Smokeless Tobacco: Never Alcohol Habits Answer Date Recorded How often do you have a drink containing 4 or more times a w ramona 05/12/2021 alcohol? How many drinks containing alcohol [...] How often do you attend gnosticist or synagogue Never 05/12/2021 services? Do you [...] have completed or the highest Young, MEd, WEED BURNER, ERNIE) degree you have received? Sex Assigned [...] Associated Comments Diagnosis TACROLIMUS LEVEL, B Routine 09/01/2020 7:30 AM Transplant Mary l Results for this FLIGHT OPERATION COORDINATOR (HCC) procedure are i n the results section. documented in this encounter Results Tacrolimus, B (09/01/2020 7:30 AM FLIGHT OPERATION COORDINATOR) athologist Signature Tacrolimus, B 9.5 5.0-15.0 09/05/2020 [facility] (Trough) 12:32 PM FLIGHT OPERATION COORDINATOR ng/mL Comment: ----ADDITIONAL INFORMATION---- Target steady-state trough concentration s vary depending on the type of transplant, concomitant immunosuppressio n, clinical/institutional protocols, and time post-transplant. Results should be interpreted in conjunction with this clinical information and any physic al signs/symptoms of rejection/toxicity. Testing performed by Liquid Chromatograp hy-Tandem Mass Spectrometry (LC-MS/MS). This test was developed and its performa nce characteristics determined by [facility] in a manner consistent with CLIA requirements. This test has not been cleared or approved by the U.S. Margarita d and Drug Administration. Specimen Anatomical Collection Method Collection Time Receive d Time (Source) Location / / Volume Laterality Blood (Blood, 09/01/2020 7:30 AM 09/05/20 7:47 Venous) FLIGHT OPERATION COORDINATOR AM FLIGHT OPERATION COORDINATOR Resulting Agency Comment Mailed In Specimen Kami Suárez P.A.-C., M.S. LAB BLOOD NON ADD-ON Performing Organization Address City/State/ZIP Code Phon e Number [facility] [address] [place] [address] SUPPORT CENTER [facility] [place] [address] Laboratory Medicine and Pathology [address] [place] documented in this encounter Visit Diagnoses Diagnosis Transplant Renal (HCC) documented in this encounter
--- OUTSIDE RECORDS SUMMARY | 2022-08-23 10:02 | XMS_ITS | Encounter Summary ---
:1965 Author Organization [facility] Address [address] [place] [address] Care Team Providers Name Role Phone Unavailable Primary Care Provider Unavailable Encounter Details Date Type Department Care Team Description 03/04/2020 Clinical Communication Division of Nephrology Robert Locke and Hypertension in [place], [place] [address] [facility] [address] [place] [address] [phone] Social History Tobacco Use Types Packs/Day Years Used Date Smoking Tobacco: Never Smokeless Tobacco: Never Alcohol Habits Answer Date Recorded How often do you have a drink containing 4 or more times a w platinum 05/12/2021 alcohol? How many drinks containing alcohol [...] How often do you attend yarsani or islam Never 05/12/2021 services? Do you [...] have completed or the highest Young, Macy, AEROSPACE ENGINEER, ERNIE) degree you have received? Sex Assigned at Date Recorded Male 05/27/2018 8:52 AM CDT documented as of this encounter Miscellaneous Notes Telephone Encounter - Lalita Carpenter - 03/04/2020 12:10 PM CDT documented in this encounter Plan of Treatment Not on filedocumented as of this encounter Visit Diagnoses Not on filedocumented in this encounter
--- OUTSIDE RECORDS SUMMARY | 2022-08-23 10:02 | XMS_ITS | Encounter Summary ---
:1965 Author Organization [facility] Address [address] [place] [address] Care Team Providers Name Role Phone Unavailable Primary Care Provider Unavailable Reason for Visit Reason Comments COVID Nurse Line Encounter Details Date Type Department Care Team Description 04/16/2020 Clinical Communication Division of Deejay Cordoba Nurse Line Endocrinology in [place], [place] [address] [facility] [address] [place] [address] [phone] Social History Tobacco Use Types Packs/Day Years Used Date Smoking Tobacco: Never Smokeless Tobacco: Never Alcohol Habits Answer Date Recorded How often do you have a drink containing 4 or more times a w [place] 05/12/2021 alcohol? How many drinks containing alcohol [...] How often do you attend episcopal or confucianism Never 05/12/2021 services? Do you [...] have completed or the highest Young, MEd, UNDERWEAR WELTER, ERNIE) degree you have received? Sex Assigned at Date Recorded Male 05/27/2018 8:52 AM CDT documented as of this encounter Miscellaneous Notes Telephone Encounter - Mayra Vasques - 04/16/2020 3:01 PM CDT ([facility] and [facility] locations only: If the patient is not having symptoms and is requesting COVID-19 Nasal Swab testing only, use the process listed in the COVID-19 Patient Requesting COVID PCR Test OTG COVID-19 [place] Patient Requesting COVID PCR Test). In the past 30 days have you had a swab for COVID that tested positive? No Please Route reply to: holland rst end scheduling Scheduling Contact Number: [phone] documented in this encounter Plan of Treatment Not on filedocumented as of this encounter Visit Diagnoses Not on filedocumented in this encounter
--- OUTSIDE RECORDS SUMMARY | 2022-08-23 10:02 | XMS_ITS | Encounter Summary ---
:1965 Author Organization [facility] Address [address] [place] [address] Care Team Providers Name Role Phone Unavailable Primary Care Provider Unavailable Encounter Details Date Type Department Care Team Description 04/27/2020 Hospital Encounter Department of Rah Soliz Transpl ant Renal Laboratory Medicine M.DKg (HCC) and Pathology, [address] [place] [address], in [place], [place] [address] [place] [address] [place], [place] (Work) [phone] Social History Tobacco Use Types Packs/Day Years [...] 05/12/2021 relatives? How often do you attend mosque or orthodox Never 05/12/2021 services? Do you belong to any clubs or organizations such No 05/12/2021 as mosque groups, unions, fraternal or athletic groups, or [...] or the highest Young, MEd, SHREDDED FILLER MACHINE WRAPPER LAYER, ERNIE) degree you have received? Sex Assigned [...] THE PM TEVA BRAND predniSONE (DELTASONE) 5 Take 1 tablet (5 mg 90 tablet 3 05/07/2020 mg tabletIndications: total) by mouth Transplant Renal (HCC) daily. tacrolimus (PROGRAF) 0.5 TAKE 1 CAPSULE BY [...] Diagnosis Comme nts PROTEIN, TOTAL, 24 Routine 05/25/2020 6:20 AM Transplant Renal Results for this HR, U CDT (HCC) procedure are i n the results section. ALBUMIN, 24 HR, U Routine 05/25/2020 6:20 AM Transplant Renal Results for this CDT (HCC) procedure are i n the results section. documented in this encounter Results Albumin, 24 Hour Collection, Urine (05/25/2020 6:20 AM CDT) athologist Signature Albumin, 24 Hr, <15 <30 mg/24 h 05/25/2020 DTL U 10:20 AM CDT Comment: ----ADDITIONAL INFORMATION---- This test has been modified from the man ufacturer's instructions. Its performance characteri stics were determined by [facility] in a manner co nsistent with CLIA requirements. This test has not bee n cleared or approved by the U.S. Food and Drug Admin istration. Collection Duration 24 h 05/25/2020 8:08 AM C DT DTL Urine Volume 3043 mL 05/25/2020 8:08 AM CDT DTL Albumin Excretion Rate <11 <20 mcg/min 05/25/2020 10:2 0 AM CDT DTL Specimen Anatomical Collection Method Collection Time Receive d Time (Source) Location / / Volume Laterality Urine (Urine, 24 05/25/2020 6:20 AM 05/25 8:08 Hours) CDT AM CDT Rah Soliz M.D. LAB URINE ORDERABLES Performing Organization Address City/State/ZIP Code Phon e Number [facility] - [address] [place], [place] [address] [facility] [address] Laboratories-[facility] [address] Protein, Total, 24 Hour, Urine (05/25/2020 6:20 AM CDT) athologist Signature Total Protein, <122 <229 mg/24 05/25/2020 VAN 24 HR, U h 9:17 PM CDT Comment: ----ADDITIONAL INFORMATION---- On 03/20/2017 the total protein assay me thod changed resulting in approximately a 15% increase in prote in values. Collection Duration 24 h 05/25/2020 8:08 AM C DT VAN Urine Volume 3043 mL 05/25/2020 8:08 AM CDT VAN Concentration <4 mg/dL 05/25/2020 9:17 PM CDT CRISTELA A Specimen Anatomical Collection Method Collection Time Receive d Time (Source) Location / / Volume Laterality Urine (Urine, 24 05/25/2020 6:20 AM 05/25 8:08 Hours) CDT AM CDT Rah Soliz M.D. LAB URINE ORDERABLES Performing Organization Address City/State/[facility] Code Phon e Number [facility] - [address] [place], [place] [address] [facility] [address] [facility] [address] documented in this encounter Visit Diagnoses Diagnosis Transplant Renal (HCC) documented in this encounter
--- OUTSIDE RECORDS SUMMARY | 2022-08-23 10:02 | XMS_ITS | Encounter Summary ---
:1965 Author Organization [facility] Address [address] [place] [id number] Care Team Providers Name Role Phone Unavailable Primary Care Provider Unavailable Reason for Visit Reason Comments Tacrolimus Adjustment Protocol Encounter Details Date Type Department Care Team Description 02/04/2020 Clinical [facility]abrina J, Adjustment Transplantation and R.Heber., C.C.T. C. Protocol Clinical Regeneration [address] [facility] [id number] [address] [facility] [phone] [place], [place] (Work) [phone] Social History Tobacco Use Types Packs/Day Years [...] How often do you attend mandaen or druze Never 05/12/2021 services? Do you [...] have completed or the highest Young, MEd, [employer], ERNIE) degree you have received? Sex Assigned at Date Recorded Male 05/27/2018 8:52 AM CDT documented as of this encounter Miscellaneous Notes Telephone Encounter - Zabrina Marquez R.N., C.C.T.C. - 02/04/2020 9:51 AM CDT Tacrolimus level within goal range of 6-8, per Tacrolimus Adjustment Protocol no dose change recommended. Current Tacrolimus dose 2.5 mg twice a day. Other lab results received and reviewed, stable trends, continue monitoring every 3 months. documented in this encounter Plan of Treatment Not on filedocumented as of this encounter Visit Diagnoses Not on filedocumented in this encounter
--- OUTSIDE RECORDS SUMMARY | 2022-08-23 10:02 | XMS_ITS | Encounter Summary ---
:1965 Author Organization [facility] Address [address] [place] [address] Care Team Providers Name Role Phone Unavailable Primary Care Provider Unavailable Reason for Referral Outpatient (Routine) - Closed Specialty Diagnoses / Procedures Referred By Contact Refer red To Contact Diagnoses Transplant Renal (HCC) Rah Soliz M.D. [facility] Procedures ECG 12 Lead [address] [place] [address] Referral ID Status Reason Start Date Expiration Date Visits Requ ested Visits Authorized [id number] Closed 03/04/2020 03/04/2021 1 1 utpatient (Routine) - Closed Specialty Diagnoses / Procedures Referred By Contact Refer red To Contact Diagnoses Transplant Renal (HCC) Rah Soliz M.D. [facility] Procedures Short renal clearance: Iothalamate (Renal Studies Unit) [address] [place] [address] Referral ID Status Reason Start Date Expiration Date Visits Requ ested Visits Authorized [id number] Closed 03/04/2020 03/04/2021 1 1 utpatient (Routine) - Closed Specialty Diagnoses / Procedures Referred By Contact Refer red To Contact Transplant Surgery / Diagnoses Rah Soliz M.D. [facility] Transplant [address] [place] [phone] Referral ID Status Reason Start Date Expiration Date Visits Requ ested Visits Authorized [id number] Closed 03/04/2020 03/04/2021 1 1 Reason for Visit Reason Comments Annual Exam Encounter Details Date Type Department Care Team Description 03/04/2020 Clinical Communication Zayra Rey, Annual Exam [facility] Transplantation and [address] [place] [address] Clinical Regeneration in [place], [place] [address] [place] [address] [place] [address] (Work) [phone] Social History Tobacco Use Types Packs/Day Years Used Date Smoking Tobacco: Never Smokeless Tobacco: Never Alcohol Habits Answer Date Recorded How often do you have a drink containing 4 or more times a w [place] 05/12/2021 alcohol? How many drinks containing alcohol [...] How often do you attend sabianist or pentecostal Never 05/12/2021 services? Do you belong to [...] place to sleep or slept in a snf (including now)? Education Answer Date Recorded What is the highest level of school Master's degree (e.g., Beatrice Kilpatrick, MS, 05/08/2019 you have completed or the highest Young, MEd, PHARMACY ASSISTANT, ERNIE) degree you have received? Sex Assigned at Date Recorded Male 05/27/2018 8:52 AM CDT documented as of this encounter Miscellaneous Notes Telephone Encounter - Thelma Tamayo - 03/04/2020 7:38 AM CDT Patient is scheduled for an annual visit on: 05/25 ?Annual Year: ??9 ? Provider: Martínez Preferred follow up: [ ??x ] Patient Portal Message [ ?? ] Telephone Call Phone Number: [ ?? ] Mail PAG Patient: ??[ ??x ] Driving or [ ?? ] Flying for Urine Kit. Is patient a Dual Organ Patient? [ ?? ] Yes ?[ ??x ] No ?They will be seeing: ??[Provider Name] Biopsy: [ ?? ] Right ? [ ?? ] Left ? [ ??x ??] Not a Biopsy Year ?? If Patient does not know their side, note on top of this for provider to order. Diabetic: ?? [ ?? ] Yes ?[ ??x ] No Osteoporosis? [ ?? ] Yes ?[ x ??] No- osteopenia Does Patient need to be seen by Endo? [ ?? ] Yes ?[ ??x ] No Immunosuppression Medication: Alendranate [ ?? ] Cyclosporine/Sandimmune/Gengraf/Neoral [ ?? ] Rapamycin/Sirolimus [ ?? ] Prograf/Tacrolimus/FKS/Envarsis [ ?? ] Mycophenolic Acid/Cell Cept Thyroid Medication: ??[ ?? ] Yes ?[ ??x ] No Dermatology: ?? [ x ??] Yes ?[ ?? ] No Bone Density: (every other year required) [ x ??] Yes - one already ordered by endo ?[ ?? ] No Colonoscopy: [ ?? ] Yes, Pharmacy Script: [ ?? x] No They require the following sedation for procedures: [ ?? ] Yes ?[x ?? ] No Any New Allergies in the last year: [ ?? ] Yes ?[ ??x ] No Blood Thinner/Aspirin: [ x ??] Yes, Medication Name: aspirin [ ?? ] No Reminder, send inbox to Provider if Biopsy is needed. PSA Needed (Male over 50) ? [x ?? ] Yes ?[ ?? ] No Test (Female under 50) ?[ ?? ] Yes ?[ ??x ] No ?? Need Preventative Medicine/Mammo: ?[ ?? ] Yes ?[ ??x ] No Patient need CMV Testing: ?? [ ?? ] Yes ?[x ?? ] No Any other items addressed/Any Hospitalizations in last year: ??na/ na (copy and paste and put on top) Indication/Diagnosis: ?Hospital Facility and Date: Indication/Diagnosis: ?Department Requested: Indication/Diagnosis: ?Department Requested: documented in this encounter Plan of Treatment Scheduled Orders Name Type Priority Associated Diagnoses Order S chedule Short renal clearance: Procedures Routine Transplant Renal ( HCC) Expected: 05/25/2020 Iothalamate (Renal (Approxim ate), Studies Unit) Expires: 07/25 Scheduled Referrals Name Type Priority Associated Order Schedule Diagnoses Transplant Kidney Outpatient Referral Routine Exp ected: office visit 05/25/2020 (clinic) (Approximate), Expires: 07/25/2020 documented as of this encounter Results (ABNORMAL) Urinalysis with Microscopic: Urine, Clean Catch (05/25/2020 12:10 PM CDT) [facility] Method Time Signature Source Midstream 05/25/2020 VAN 12:10 PM CDT Appearance Normal Normal 05/25/2020 VAN 1:16 PM CDT Osmolality, U 184 150 - 1150 05/25/2020 VAN mOsm/kg 1:42 PM CDT pH, U 6.2 4.5 - 8.0 05/25/2020 VAN 1:42 PM CDT Comment: ----ADDITIONAL INFORMATION---- This test was developed and its performa nce characteristics determined by [facility] in a manner co nsistent with CLIA requirements. This test has not bee n cleared or approved by the U.S. Food and Drug Admin istration. Glucose 187 (H) 0 - 15 mg/dL 05/25/2020 1:16 PM CDT VAN Protein, U <4 <26 mg/dL 05/25/2020 1:16 PM CDT VAN Comment: ----ADDITIONAL INFORMATION---- On 03/20/2017 the total protein assay me thod changed resulting in approximately a 15% increase in prote in values. Protein/Osmolality <0.22 <0.42 Ratio 05/25/2020 1:42 PM CDT VAN Comment: ----ADDITIONAL INFORMATION---- On 03/20/2017 the total protein assay me thod changed resulting in approximately a 15% increase in prote in values. Predicted 24 Hr Protein <220 mg/24 h 05/25/2020 1:42 PM CDT VAN Predicted Range <693 mg/24 h 05/25/2020 1:42 PM CDT R JAREN Hemoglobin, QL Negative Negative 05/25/2020 2:56 PM CDT RE NA Specimen Anatomical Collection Method Collection Time Receive d Time (Source) Location / / Volume Laterality Urine (Urine, 05/25/2020 12:10 05/25/2020 Clean Catch) PM CDT 12:10 PM CDT Rah Soliz M.D. LAB URINE ORDERABLES Performing Organization Address City/State/ZIP Code Phon e Number [facility] - [address] [place], [place] [address] [facility] [place] [address] Laboratories-[facility] [address] [place]/[employer], Urine (05/25/2020 12:10 PM CDT) Analysis Performed At Patho logist Time Signature [place]/Kid Collected DEFAULT 05/25/2020 HSS Storage, U 1:54 PM CDT Specimen Anatomical Collection Method Collection Time Receive d Time (Source) Location / / Volume Laterality Urine (Urine, 05/25/2020 12:10 05/25/2020 1:54 Clean Catch) PM CDT PM CDT Rah Soliz M.D. LAB URINE ORDERABLES Performing Organization Address City/[facility] [address]/ZIP Code Phon e Number [facility] - [address] [place], [place] [address] [facility] [place] [address] Bacterial Culture, Aerobic + Susc, Urine (05/25/2020 12:09 PM CDT) Patholo gist Method Time Signature Urine Culture No growth 05/26/2020 DTL after 1 day 8:15 AM CDT of incubation. Specimen Anatomical Collection Method Collection Time Receive d Time (Source) Location / / Volume Laterality Urine (Urine, 05/25/2020 12:09 05/25/2020 2:00 Midstream) PM CDT PM CDT Comment: Specimen Source Site: Urine Rah Soliz M.D. LAB MICROBIOLOGY - GENERAL O RDERABLES Performing Organization Address City/[facility] [address]/ZIP Code Phon e Number [facility] - [address] [place] [address] [facility] [place] [place] [address] ECG 12 Lead (05/25/2020 10:38 AM CDT) P athologist Signature Ventricular Rate 68 BPM MUSE ECG/Min FL Interval 146 ms MUSE QRSD Interval 98 ms MUSE QT Interval 386 ms MUSE QTC Interval 410 ms MUSE P Emily 42 degrees MUSE R Emily 71 degrees MUSE T Wave Emily 48 degrees MUSE Specimen Anatomical Collection Method Collection Time Receive d Time (Source) Location / / Volume Laterality 05/25/2020 10:38 05/25/2020 AM CDT 10:40 AM CDT Impressions MUSE - 05/25/2020 10:41 AM CDT Normal sinus rhythm Normal ECG When compared with ECG of 12-MAY-2019 10 :02, No significant change was found Reviewed by CHAVO Brooks Narrative This result has an attachment that is no t available. Procedure Note Eriberto Fagan M.B.BKgS. - 020 IMPRESSION: Normal sinus rhythm Normal ECG When compared with ECG of 12-MAY-2019 10 :02, No significant change was found Reviewed by CHAVO Brooks Rah Soliz M.D. ECG ORDERABLES Performing Organization Address City/[facility] [address]/ZIP Code Phon e Number PRASHANTH ALFORD NA DX Chest AP or PA and Lateral 2 Views (05/25/2020 7:00 AM CDT) Anatomical Region Laterality Modality Chest, Thoracic RST LOS, Thoracic ARZ LOS, Thoracic N/A Digital Radiography FLA LOS Specimen (Source) Anatomical Collection Method Collection Time Re ceived Time Location / / Volume Laterality 05/25/2020 7:30 AM CDT Impressions 05/25/2020 7:31 AM CDT Negative chest. No change since 05/12/20 19. Narrative 05/25/2020 7:31 AM CDT EXAM: ??DX CHEST AP OR PA AND LATERAL 2 VIEWS Procedure Note Evelyn Jaffe M.D. - 05/25/2020For matting of this note might be different from the original. EXAM: DX CHEST AP OR PA AND LATERAL 2 EWS IMPRESSION: Negative chest. No change since 05/12/20. Rah Soliz M.D. IMG DIAGNOSTIC IMAGING PROCE DURES PSA (Prostate-Specific Antigen) Screen (05/25/2020 6:28 AM CDT) P athologist Signature Prostate-Specif 2.9 <=3.5 ng/mL 05/25/2020 DTL ic Ag 7:22 AM CDT Comment: ----ADDITIONAL INFORMATION---- The testing method [...] Location / / Volume Laterality Blood (Blood, 05/25/2020 6:28 AM 05/25/20 6:53 Venous) CDT AM CDT Rah Soliz M.D. LAB BLOOD ADD-ON Performing Organization Address City/State/ZIP Code Phon e Number [facility] - [address] [place], [place] [address] [facility] [place] [address] [facility] [address] BK Virus PCR, Quant, Plasma (05/25/2020 6:28 AM CDT) [facility] gist Method Time Signature BK Virus PCR, None None 05/25/2020 DT Quant, P Detected Detected 3:38 PM CDT Comment: ----ADDITIONAL INFORMATION---- IU/mL = International Units per millilit er 1 copy/mL = 0.32 IU/mL This test was developed and its performa nce characteristics determined by [facility] in a manner consistent with CLIA requirements. This test has not been cleared or approved by the U.S. Margarita d and Drug Administration. Specimen Anatomical Collection Method Collection Time Receive d Time (Source) Location / / Volume Laterality Blood (Blood, 05/25/2020 6:28 AM 05/25/20 7:25 Venous) CDT AM CDT Rah Soliz M.D. LAB MICROBIOLOGY - BLOOD ORD ERABLES Performing Organization Address City/[facility] Phon e Number [facility] - [address] (ABNORMAL) Parathyroid Hormone (PTH) (05/25/2020 6:28 AM CDT) athologist [facility] Parathyroid 82 (H) 15 - 65 05/25/2020 [facility] Hormone (PTH), S pg/mL 7:18 AM CDT Specimen Anatomical Collection Method Collection Time Receive d Time (Source) Location / / Volume Laterality Blood (Blood, 05/25/2020 6:28 AM 05/25/20 20 6:53 Venous) CDT AM CDT Rah Soliz M.D. LAB BLOOD ADD-ON Performing Organization Address City/[facility] Phon e Number [facility] - [address] 25-Hydroxyvitamin D2 and D3 (05/25/2020 6:28 AM CDT) athologist Signature 25-Hydroxy D2 <4.0 ng/mL 05/25/2020 SDSC 10:22 PM CDT 25-Hydroxy D3 43 ng/mL 05/25/2020 [facility]SC 10:22 PM CDT 25-Hydroxy D 43 ng/mL 05/25/2020 [facility] Total 10:22 PM CDT Comment: ----REFERENCE VALUE---- 25-HYDROXY D TOTAL (D2+D3) Optimum level s in the healthy population are 20-50, patients with bone disease may benefit from higher levels within this r cris. ----ADDITIONAL INFORMATION---- This test was developed and its performa nce characteristics determined by [facility] in a manner consistent with CLIA requirements. This test has not been cleared or approved by the U.S. Margarita d and Drug Administration. Specimen Anatomical Collection Method Collection Time Receive d Time (Source) Location / / Volume Laterality Blood (Blood, 05/25/2020 6:28 AM 05/25/20 20 9:05 Venous) CDT AM CDT Rah Soliz M.D. LAB BLOOD ADD-ON Performing Organization Address City/State/ZIP Code Phon e Number [facility] [address] [place], [place] [address] SUPPORT CENTER [facility] [place] [address] Laboratory Medicine and Pathology [address] [place] HLA Class II SAB Antibody Screen (05/25/2020 6:28 AM CDT) [facility] Method Time Signature Class II SAB Negative Not Applicable 05/26/2020 DBB8 Overall 10:45 AM CDT Result Class II SAB 0 05/26/2020 DBB8 cPRA 10:45 AM CDT Comment: ----ADDITIONAL INFORMATION---- This PRA is a [facility] calculated PRA. PRA is based on the antigen frequency of the Tissue Typing patient a nd donor population. ??PRA reflects all antibodie s with a normalized value (MFI) above 300. SAB DRB1 Specificity NONE 05/26/2020 10:45 AM CDT DBB8 SAB ANY293 Specificity NONE 05/26/2020 10:45 AM CDT DBB8 SAB DQB1 Specificity NONE 05/26/2020 10:45 AM CDT DBB8 SAB DPB1 Specificity NONE 05/26/2020 10:45 AM CDT DBB8 Comment: ----ADDITIONAL INFORMATION---- Method: Luminex Flow Cytometry CLIA: [id number] ??CLIA [employer]ra[employer] Worker: LEON STRATTON MD,PhD Specimen Anatomical Collection Method Collection Time Receive d Time (Source) Location / / Volume Laterality Blood (Blood, 05/25/2020 6:28 AM 05/25/20 20 7:39 Venous) CDT AM CDT Rah Soliz M.D. LAB HLA ORDERABLES Performing Organization Address [facility] Phon e Number [facility] - [address] [place], [place] [address] [facility] DBB[address] HLA Class I SAB Antibody Screen (05/25/2020 6:28 AM CDT) Patholo gist Method Time Signature Class I SAB Negative Not Applicable 05/26/2020 DBB8 Overall 10:43 AM CDT Result Class I SAB 0 05/26/2020 DBB8 cPRA 10:43 AM CDT Comment: ----ADDITIONAL INFORMATION---- This PRA is a [facility] calculated PRA. PRA is based on the antigen frequency of the Tissue Typing patient a nd donor population. ??PRA reflects all antibodie s with a normalized value (MFI) above 300. SAB A Specificity NONE 05/26/2020 10:43 AM CD T DBB8 SAB B Specificity NONE 05/26/2020 10:43 AM CD T DBB8 SAB C Specificity NONE 05/26/2020 10:43 AM CD T DBB8 Comment: ----ADDITIONAL INFORMATION---- Method: Luminex Flow Cytometry CLIA: [id number] ??CLIA [employer] Worker: LEON STRATTON MD,PhD Specimen Anatomical Collection Method Collection Time Receive d Time (Source) Location / / Volume Laterality Blood (Blood, 05/25/2020 6:28 AM 05/25/20 20 7:39 Venous) CDT AM CDT Rah Soliz M.D. LAB HLA ORDERABLES Performing Organization Address [facility] Phon e Number [facility] - [address] [place], [place] [address] [facility] DBB[address] [place]/Kid [employer] Storage, B (05/25/2020 6:28 AM CDT) Analysis Performed At Patho logist Time Signature Storage, Red Collected DEFAULT 05/25/2020 HSS 6:28 AM CDT Storage, ACD Collected DEFAULT 05/25/2020 HSS 6:28 AM CDT Specimen Anatomical Collection Method Collection Time Receive d Time (Source) Location / / Volume Laterality Blood (Blood, 05/25/2020 6:28 AM 05/25/20 20 6:28 Venous) CDT AM CDT Narrative [facility] - 05/25/2020 6:28 AM CDT Specimen Information: Specimen ID: [id number] Specimen Type: Blood Specimen Collection Start Date: 0 ??6:28 AM Specimen Received Date: 05/25/2020 ??6:28 AM Specimen ID: [id number] Specimen Collection Start Date: 0 ??6:28 AM Specimen Received Date: 05/25/2020 ??6:28 AM Rah Soliz M.D. LAB BLOOD ADD-ON Performing Organization Address City/[facility] Code Phon e Number [facility] - [address] HSS [address] (ABNORMAL) Hemoglobin A1c (05/25/2020 6:28 AM CDT) P athologist Signature Hemoglobin A1c, 5.7 (H) 4.0 - 5.6 05/25/2020 DT B % 6:51 AM CDT Comment: Hemoglobin A1c values of 5.7-6.4 percent indicate an increased risk for developing diabetes m ellitus. In diabetic patients, HbA1c goals should be discussed with healthcare provider. Specimen Anatomical Collection Method Collection Time Receive d Time (Source) Location / / Volume Laterality Blood (Blood, 05/25/2020 6:28 AM 05/25/20 20 6:37 Venous) CDT AM CDT Rah Soliz M.D. LAB BLOOD ADD-ON Performing Organization Address City/[facility]/ZIP [facility] Phon e Number [facility] [address] Troponin T, 5th Generation (05/25/2020 6:28 AM CDT) P athologist Signature Troponin T, 5th 14 <=15 ng/L 05/25/2020 DTL gen 7:23 AM CDT Specimen Anatomical Collection Method Collection Time Receive d Time (Source) Location / / Volume Laterality Blood (Blood, 05/25/2020 6:28 AM 05/25/20 20 6:53 Venous) CDT AM CDT Rah Soliz M.D. LAB BLOOD ADD-ON Performing Organization Address City/State/ZIP Code Phon e Number [facility] - [address] [place], [place] [address] [facility] [place] [place] [address] [facility] [address] (ABNORMAL) Lipid Panel (05/25/2020 6:28 AM CDT) athologist Signature Cholesterol, 147 mg/dL 05/25/2020 DTL Total 7:22 AM CDT Comment: ----REFERENCE VALUE---- Desirable: < 200 Borderline high: 200 - 239 High: > or = 240 Triglycerides 186 (H) mg/dL 05/25/2020 7:22 AM CDT DTL Comment: ----REFERENCE VALUE---- Normal: <150 Borderline high: 150-199 High: 200-499 Very high: > or =500 Cholesterol, HDL, S 38 (L) >=40 mg/dL 05/25/2020 7:22 AM CDT DTL Calculated LDL 72 mg/dL 05/25/2020 7:22 AM CDT DT L Comment: ----REFERENCE VALUE---- Desirable: <100 Above Desirable: 100-129 Borderline high: 130-159 High: 160-189 Very high: > or =190 Cholesterol, Non-HDL, Calculated 109 mg/dL 020 7:22 AM CDT DTL Comment: ----REFERENCE VALUE---- Desirable: <130 Above Desirable: 130-159 Borderline high: 160-189 High: 190-219 Very high: > or =220 Specimen Anatomical Collection Method Collection Time Receive d Time (Source) Location / / Volume Laterality Blood (Blood, 05/25/2020 6:28 AM 05/25/20 20 6:53 Venous) CDT AM CDT Rah Soliz M.D. LAB BLOOD ADD-ON Performing Organization Address City/[facility] Phon e Number [facility] - [address] Magnesium (05/25/2020 6:28 AM CDT) P athologist Signature Magnesium, S 1.9 1.7 - 2.3 05/25/2020 DTL mg/dL 7:18 AM CDT Specimen Anatomical Collection Method Collection Time Receive d Time (Source) Location / / Volume Laterality Blood (Blood, 05/25/2020 6:28 AM 05/25/20 6:53 Venous) CDT AM CDT Rah Soliz M.D. LAB BLOOD ADD-ON Performing Organization Address City/[facility] Phon e Number [facility] - [address] Phosphorus Inorganic (05/25/2020 6:28 AM CDT) P athologist Signature Phosphorus 2.8 2.5 - 4.5 05/25/2020 DTL (Inorganic), S mg/dL 7:18 AM CDT Specimen Anatomical Collection Method Collection Time Receive d Time (Source) Location / / Volume Laterality Blood (Blood, 05/25/2020 6:28 AM 05/25/20 20 6:53 Venous) CDT AM CDT Rah Soliz M.D. LAB BLOOD ADD-ON Performing Organization Address City/[facility] Phon e Number [id number] [place] [address] (ABNORMAL) Comprehensive Metabolic Panel (05/25/2020 6:28 AM CDT) Analysis Performed At Patho logist Time Signature Potassium, S 4.4 3.6 - 5.2 05/25/2020 DTL mmol/L 7:11 AM CDT Sodium, S 142 135 - 145 05/25/2020 DTL mmol/L 7:11 AM CDT Chloride, S 105 98 - 107 05/25/2020 DTL mmol/L 7:11 AM CDT Bicarbonate, S 22 22 - 29 05/25/2020 DTL mmol/L 7:11 AM CDT Anion Gap 15 7 - 15 05/25/2020 DTL 7:11 AM CDT BUN (Blood Urea 23 8 - 24 05/25/2020 DTL Nitrogen), S mg/dL 7:11 AM CDT Creatinine 1.61 (H) 0.74 - 05/25/2020 DTL 1.35 mg/dL 7:11 AM CDT eGFR-Non 48 (L) >=60 05/25/2020 DTL Black/ mL/min/BSA 7:11 AM CDT [place] Comment: ----ADDITIONAL INFORMATION---- Estimated GFR calculated using the 2009 CKD_EPI creatinine equation. eGFR-Black/ 56 (L) >=60 mL/min/BSA 2019 7:11 AM CDT DTL Comment: ----ADDITIONAL INFORMATION---- Estimated GFR calculated using the 2009 CKD_EPI creatinine equation. Calcium, Total, S 9.5 8.6 - 10.0 mg/dL 05/25/2020 7:11 AM CDT DTL Glucose, S 142 (H) 70 - 140 mg/dL 05/25/2020 7:11 AM CDT D TL Protein, Total, S 6.9 6.3 - 7.9 g/dL 05/25/2020 7:11 A M CDT DTL Albumin, S 4.8 3.5 - 5.0 g/dL 05/25/2020 7:11 AM CDT D TL Aspartate Aminotransferase 23 8 - 48 U/L 05/25/2020 7 :11 AM CDT DTL (AST), S Alkaline Phosphatase, S 33 (L) 40 - 129 U/L 05/25/2020 7: 11 AM CDT DTL Alanine Aminotransferase 28 7 - 55 U/L 05/25/2020 7:1 1 AM CDT DTL (ALT), S Bilirubin, Total, S 0.8 <=1.2 mg/dL 05/25/2020 7:11 AM CDT DTL Specimen Anatomical Collection Method Collection Time Receive d Time (Source) Location / / Volume Laterality Blood (Blood, 05/25/2020 6:28 AM 05/25/20 20 6:53 Venous) CDT AM CDT Rah Soliz M.D. LAB BLOOD ADD-ON Performing Organization Address City/[facility] Phon e Number [facility] - [address] APTT (Activated Partial Thromboplastin Time) (05/25/2020 6:28 AM CDT) P athologist Signature Activated 29 25 - 37 sec 05/25/2020 DTL Partial 7:13 AM CDT Thrombopl Time, P Specimen Anatomical Collection Method Collection Time Receive d Time (Source) Location / / Volume Laterality Blood (Blood, 05/25/2020 6:28 AM 05/25/20 20 6:37 Venous) CDT AM CDT Rah Soliz M.D. LAB BLOOD ADD-ON Performing Organization Address [facility] Phon e Number [facility] - [address] Prothrombin Time (PT) (05/25/2020 6:28 AM CDT) P athologist Signature Prothrombin 11.7 9.4 - 12.5 05/25/2020 DTL Time, P sec 7:13 AM CDT INR 1.1 0.9 - 1.1 05/25/2020 DTL 7:13 AM CDT Comment: ----ADDITIONAL INFORMATION---- Standard intensity warfarin therapeutic range: 2.0 to 3.0 ?? High intensity warfarin therapeutic rang e: 2.5 to 3.5 Specimen Anatomical Collection Method Collection Time Receive d Time (Source) Location / / Volume Laterality Blood (Blood, 05/25/2020 6:28 AM 05/25/20 20 6:37 Venous) CDT AM CDT Rah Soliz M.D. LAB BLOOD ADD-ON Performing Organization Address City/[facility] Phon e Number [facility] - [address] (ABNORMAL) CBC with Differential, Blood (05/25/2020 6:28 AM CDT) [facility] gist Method Time Signature Hemoglobin 14.7 13.2 - 05/25/2020 DTL 16.6 g/dL 6:44 AM CDT Hematocrit 42.8 38.3 - 05/25/2020 DTL 48.6 % 6:44 AM CDT Erythrocytes 4.33 (L) 4.35 - 05/25/2020 DTL 5.65 6:44 AM CDT x10(12)/L MCV 98.8 (H) 78.2 - 05/25/2020 DTL 97.9 fL 6:44 AM CDT RBC Distrib Width 12.4 11.8 - 05/25/2020 DTL 14.5 % 6:44 AM CDT Platelet Count 148 135 - 317 05/25/2020 DTL x10(9)/L 6:44 AM CDT Leukocytes 4.4 3.4 - 9.6 05/25/2020 DTL x10(9)/L 6:44 AM CDT Neutrophils 2.65 1.56 - 05/25/2020 DTL 6.45 6:44 AM CDT x10(9)/L Lymphocytes 1.29 0.95 - 05/25/2020 DTL 3.07 6:44 AM CDT x10(9)/L Monocytes 0.41 0.26 - 05/25/2020 DTL 0.81 6:44 AM CDT x10(9)/L Eosinophils 0.03 0.03 - 05/25/2020 DTL 0.48 6:44 AM CDT x10(9)/L Basophils <0.03 0.01 - 05/25/2020 DTL 0.08 6:44 AM CDT x10(9)/L Specimen Anatomical Collection Method Collection Time Receive d Time (Source) Location / / Volume Laterality Blood (Blood, 05/25/2020 6:28 AM 05/25/20 20 6:37 Venous) CDT AM CDT Rah Soliz M.D. LAB BLOOD ADD-ON Performing Organization Address City/State/ZIP Code Phon e Number [facility] - [address] [place], [place] [address] [facility] [place] [address] [facility] [address] Albumin, 24 Hour Collection, Urine (05/25/2020 6:20 AM CDT) athologist Signature Albumin, 24 Hr, <15 <30 mg/24 h 05/25/2020 DTL U 10:20 AM CDT Comment: ----ADDITIONAL INFORMATION---- This test has been modified from the man ufacturer's instructions. Its performance characteri stics were determined by [facility] in a manner co nsistent with [...] Location / / Volume Laterality Urine (Urine, 05/25/2020 6:20 AM 05/25 8:08 Hours) CDT AM CDT Rah Soliz M.D. LAB URINE ORDERABLES Performing Organization Address City/State/ZIP Code Phon e Number [facility] - [address] [place], [place] [address] [facility] [place] [place] [address] [facility] [address] Protein, Total, 24 Hour, Urine (05/25/2020 6:20 [...] AM 05/25 8:08 Hours) CDT AM CDT Naim S Martínez M.D. 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
--- OUTSIDE RECORDS SUMMARY | 2022-08-23 10:02 | XMS_ITS | Encounter Summary ---
:1965 Author Organization [facility] Address 200 [place] [address] Care Team Providers Name Role Phone Unavailable Primary Care Provider Unavailable Reason for Visit Reason Comments Med Refill Encounter Details Date Type Department Care Team Description 02/13/2020 Refill [facility] for Textor, Ortiz Eric M.D. Med Refill Transplantation and Clinical 200 [facility] [place] [address] [place] [address] [place] [address] [place] [address] Social History Tobacco Use Types Packs/Day Years Used Date Smoking Tobacco: Never Smokeless Tobacco: Never Alcohol Habits Answer Date Recorded How often do you have a drink containing 4 or more times a w [place] 05/12/2021 alcohol? How many drinks containing alcohol [...] 05/12/2021 relatives? How often do you attend anglican or sabianist Never 05/12/2021 services? Do you belong to any clubs or organizations such No 05/12/2021 as anglican groups, unions, fraternal or athletic groups, or [...] have completed or the highest Young, Macy, EMPLOYMENT ATTORNEY, ERNIE) degree you have received? Sex Assigned at Date Recorded Male 05/27/2018 8:52 AM CDT documented as of this encounter Plan of Treatment Not on filedocumented as of this encounter Visit Diagnoses Diagnosis Transplant Renal (HCC) documented in this encounter
--- OUTSIDE RECORDS SUMMARY | 2022-08-23 10:02 | XMS_ITS | Encounter Summary ---
:1965 Author Organization [facility] Address [address] [place] [address] Care Team Providers Name Role Phone Unavailable Primary Care Provider Unavailable Reason for Visit Reason Comments Med Refill Encounter Details Date Type Department Care Team Description 02/13/2020 Refill Division of Endocrinology in Apollo Ty M.D. Med Refill [place], [place] [address] [facility] [address] [place] [phone] (Wo rk) Social History Tobacco Use Types Packs/Day Years Used Date Smoking Tobacco: Never Smokeless Tobacco: Never Alcohol Habits Answer Date Recorded How often do you have a drink containing 4 or more times a w [place] 05/12/2021 alcohol? How many drinks containing alcohol [...] 05/12/2021 relatives? How often do you attend christian or yarsani Never 05/12/2021 services? Do you belong to any clubs or organizations such No 05/12/2021 as christian groups, unions, fraternal or athletic groups, or [...] have completed or the highest Young, MEd, BLOOD COORDINATOR, ERNIE) degree you have received? Sex Assigned at Date Recorded Male 05/27/2018 8:52 AM CDT documented as of this encounter Miscellaneous Notes Telephone Encounter - Cori Tipton RKgN. - 02/13/2020 3:30 PM CDT Prescription renewal request did not meet nurse protocol because: patient has not been seen within the past 18 months and request for renewal for which the provider-issued prescription did not authorize refills for one year. Protocol utilized: Prescription Renewal Request for Medications: Division of Endocrinology, Diabetes, Metabolism and Nutrition. documented in this encounter Plan of Treatment Not on filedocumented as of this encounter Visit Diagnoses Not on filedocumented in this encounter
--- OUTSIDE RECORDS SUMMARY | 2022-08-23 10:02 | XMS_ITS | Encounter Summary ---
:1965 Author Organization [facility] Address [address] [place] [address] Care Team Providers Name Role Phone Unavailable Primary Care Provider Unavailable Encounter Details Date Type Department Care Team Description 05/25/2020 Hospital Encounter Department of Rah Soliz [facility] Building, in [address] [place] [address] [place], [place] [phone] (Work) [phone] Social History Tobacco Use Types Packs/Day Years Used Date Smoking Tobacco: Never Smokeless Tobacco: Never Alcohol Habits Answer Date Recorded How often do you have a drink containing 4 or more times a w [place] 05/12/2021 alcohol? How many drinks containing alcohol [...] 05/12/2021 relatives? How often do you attend oriental orthodox or catholic Never 05/12/2021 services? Do you belong to any clubs or organizations such No 05/12/2021 as oriental orthodox groups, unions, fraternal or athletic groups, [...] have completed or the highest Young, MEd, PRODUCTION OPERATIONS ENGINEER, ERNIE) degree you have received? Sex [...] CHEST AP OR PA RAD - Routine 05/25/2020 7:00 Transplant Renal Re sults for this AND [...] EWS IMPRESSION: Negative chest. No change since 05/12/20 19. Rah LOPEZ DIAGNOSTIC IMAGING PROCE REINA documented in this encounter Visit Diagnoses Diagnosis Transplant Renal (HCC) documented in this encounter
--- OUTSIDE RECORDS SUMMARY | 2022-08-23 10:02 | XMS_ITS | Encounter Summary ---
:1965 Author Organization [facility] Address [address] [place] [address] Care Team Providers Name Role Phone Unavailable Primary Care Provider Unavailable Reason for Referral Outpatient (Routine) - Closed Specialty Diagnoses / Procedures Referred By Contact Refer red To Contact Diagnoses Transplant Renal (HCC) Rah Soliz M.D. [facility] Procedures Short renal clearance: Iothalamate (Renal Studies Unit) [address] [place], [place] [address] Referral ID Status Reason Start Date Expiration Date Visits Requ ested Visits Authorized [id number] Closed 03/04/2020 03/04/2021 1 1 Reason for Visit Outpatient (Routine) - Closed Specialty Diagnoses / Procedures Referred By Contact Refer red To Contact Diagnoses Transplant Renal (HCC) Rah Soliz M.D. [facility] Procedures Short renal clearance: Iothalamate (Renal Studies Unit) [address] [place], [place] [address] Referral ID Status Reason Start Date Expiration Date Visits Requ ested Visits Authorized [id number] Closed 03/04/2020 03/04/2021 1 1 Encounter Details Date Type Department Care Team Description 05/25/2020 Hospital Encounter Department of Rah Soliz Transpl ant Renal Laboratory Medicine M.DKg (HCC) and Pathology, [address] [place] [address] in [facility] [address] [place] [phone] 200 [facility] (Work) [place], [place] [phone] [address] (Fax) [phone] Social History Tobacco Use Types Packs/Day Years Used Date Smoking Tobacco: Never Smokeless Tobacco: Never Alcohol Habits Answer Date Recorded How often do you have a drink containing 4 or more times a w [place] 05/12/2021 alcohol? How many drinks containing alcohol [...] for the very basics like Not h loern at all 05/12/2021 food, housing, medical care, [...] have completed or the highest Young, MEd, PAYLOADER OPERATOR, ERNIE) degree you have received? Sex [...] for 1 Occurrences Iothalamate (Renal (HCC) starting 05/25/2020 Studies Unit) until 05/25/20 20 documented as of this encounter Procedures Procedure Name Priority Date/Time Associated Comments Diagnosis IOTHALAMATE, Routine 05/25/2020 7:42 AM Results f or this GLOMERULAR CDT procedure are i n FILTRATION RATE, P the resul ts section. documented in this encounter Results (ABNORMAL) Iothalamate, Glomerular Filtration Rate (05/25/2020 7:42 AM CDT) P athologist Signature Uncorrctd 62 mL/min 05/25/2020 VAN Iothal Cl 11:13 PM CDT Corrctd Iothal 53 (L) 71 - 125 05/25/2020 VAN Cl mL/min/BSA 11:13 PM CDT Comment: ----ADDITIONAL INFORMATION---- This test was developed and its performa nce characteristics determined by [facility] in a manner consistent with CLIA requirements. This test has not been cleared or approved by the U.[place]. Margarita d and Drug Administration. Specimen Anatomical Collection Method Collection Time Receive d Time (Source) Location / / Volume Laterality Varies (Blood, 05/25/2020 7:42 AM 020 9:52 Venous) CDT AM CDT Narrative [facility] - 05/25/2020 11:13 PM CDT Specimen Information: Specimen ID: [id number] Specimen Type: Varies Specimen Collection Start Date: 0 ??7:42 AM Specimen Received Date: 05/25/2020 ??9:52 AM Specimen ID: [id number] Specimen Type: Varies Specimen Collection Start Date: 0 ??8:43 AM Specimen Received Date: 05/25/2020 ??9:52 AM Specimen ID: [id number] Specimen Type: Varies Specimen Collection Start Date: 0 ??9:37 AM Specimen Received Date: 05/25/2020 ??9:52 AM Specimen ID: [id number] Specimen Type: Varies Specimen Collection Start Date: 0 ??8:44 AM Specimen Received Date: 05/25/2020 ??9:51 AM Specimen ID: [id number] Specimen Type: Varies Specimen Collection Start Date: 0 ??9:37 AM Specimen Received Date: 05/25/2020 ??9:51 AM Oscar Nuñez M.D. LAB BLOOD NON ADD-ON Performing Organization Address City/State/ZIP Code Phon e Number [facility] [address] [place], [place] [address] [place] [address] Formerly [facility] [address] documented in this encounter Visit Diagnoses Diagnosis Transplant Renal (HCC) documented in this encounter Administered Medications Inactive Administered Medications - up to 3 most recent administrations Medication Order MAR Action Action Date Dose Rate Site iothalamate meglumine 30 Given 05/25/2020 7:43 AM 1 mL Right Upper Arm % injection 1 mL (CONRAY CDT (Back) 30) 1 mL, subcutaneous, Once, On Sun05/25/20 at 0730, For 1 dose documented in this encounter
--- OUTSIDE RECORDS SUMMARY | 2022-08-23 10:02 | XMS_ITS | Encounter Summary ---
:1965 Author Organization [facility] Address [address] [place] [address] Care Team Providers Name Role Phone Unavailable Primary Care Provider Unavailable Encounter Details Date Type Department Care Team Description 12/05/2019 Clinical Communication Joey Ramirez, Bhavya lopez Center for M, MANUFACTURING PLANT MANAGER, C.N.P., Transplantation and D.N.P. Clinical Regeneration in [address] [place] [address] [place] [address] [place] [address] [phone] Social History Tobacco Use Types Packs/Day Years Used Date Smoking Tobacco: Never Smokeless Tobacco: Never Alcohol Habits Answer Date Recorded How often do you have a drink containing 4 or more times a w algaaciq 05/12/2021 alcohol? How many drinks containing alcohol [...] How often do you attend synagogue or denominational Never 05/12/2021 services? Do you belong to [...] have completed or the highest Young, MEd, FAMILY MANAGER, ERNIE) degree you have received? Sex Assigned at Date Recorded Male 05/27/2018 8:52 AM CDT documented as of this encounter Plan of Treatment Not on filedocumented as of this encounter Results Tacrolimus, B (01/27/2020 8:33 AM CDT) athologist Signature Tacrolimus, B 6.5 5.0-15.0 01/30/2020 [facility] (Trough) 11:02 AM CDT ng/mL Comment: ----ADDITIONAL [...] Address City/State/ZIP Code Phon e Number [facility] [address] [place], [place] [address] [facility] [place] [address] Laboratory Medicine and Pathology [address] 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
--- OUTSIDE RECORDS SUMMARY | 2022-08-23 10:02 | XMS_ITS | Encounter Summary ---
:1965 Author Organization [facility] Address [address] [place] [address] Care Team Providers Name Role Phone Unavailable Primary Care Provider Unavailable Reason for Referral Outpatient (Routine) - Closed Specialty Diagnoses / Procedures Referred By Contact Refer red To Contact Diagnoses Osteoporosis Apollo Ty M.D. [facility] Procedures BMD Vertebral Fracture Assessment [address] [place] [phone] Referral ID Status Reason Start Date Expiration Date Visits Requ ested Visits Authorized [id number] Closed 04/15/2020 04/15/2021 1 1 Reason for Visit Reason Comments Follow-up Encounter Details Date Type Department Care Team Description 04/15/2020 Clinical Communication Division of Apollo Ty [facility]oll [facility] [place], [place] [address] [facility] [address] [place] [phone] Social History Tobacco Use Types Packs/Day Years Used Date Smoking Tobacco: Never Smokeless Tobacco: Never Alcohol Habits Answer Date Recorded How often do you have a drink containing 4 or more times a w [place] 05/12/2021 alcohol? How many drinks containing alcohol [...] 05/12/2021 relatives? How often do you attend shinto or orthodoxy Never 05/12/2021 services? Do you belong to any clubs or organizations such No 05/12/2021 as shinto groups, unions, fraternal or athletic groups, or [...] 05/08/2019 you have completed or the highest Yougn, MEd, LIABILITY CLAIMS EXAMINER, ERNIE) degree you have received? Sex Assigned at Date Recorded Male 05/27/2018 8:52 AM CDT documented as of this encounter Miscellaneous Notes Telephone Encounter - Mayra Vasques - 04/16/2020 3:11 PM CDT Called patient and scheduled his appointment. Telephone Encounter - Nancy Latham - 04/16/2020 8:29 AM CDT pool Telephone Encounter - Nancy Latham - 04/15/2020 4:41 PM CDT S: Caller/Dept - Patient Phone # - MD - Dr. Ty B: Patient was last seen on : 06/18/2018 A: Patient would like to schedule a follow up appointment for his osteoporosis . Patient is asking to see Dr. Deejay Cordoba. I don't see that he has ever seen Dr. Cordoba. I only see your notes from 06/18/2018. The last notes say to repeat DEXA scan in 2 years. I don't see an order in for that or for any labs. R: Please advise if you would like to see the patient back and if you will be ordering the DEXA scanand labs. Thank you , Nancy for Mayra PASS: Please call patient back to schedule. Patient would like to schedule the first week of May. documented in this encounter Plan of Treatment Not on filedocumented as of this encounter Results DX Entire Spine Anterior [...] calcifications left carotid bulb. Apollo Ty M.D. IMG DIAGNOSTIC IMAGING PROCE DURSAGAR BMD Vertebral Fracture Assessment (05/25/2020 11:57 AM [...] in this encounter Visit Diagnoses Diagnosis Osteoporosis - Primary Osteoporosis Osteoporosis documented in this encounter
--- OUTSIDE RECORDS SUMMARY | 2022-08-23 10:03 | XMS_ITS | Encounter Summary ---
:1965 Author Organization [facility] Address [address] [place] [address] Care Team Providers Name Role Phone Unavailable Primary Care Provider Unavailable Encounter Details Date Type Department Care Team Description 06/13/2019 Hospital Encounter Department of Nasra Montalvo Tra nsplant Renal Laboratory Medicine VP SOFTWARE, C.N.P., (HCC) and [facility] [address] [place] [phone] [place] [address] [place], [place] (Work) [phone] Social History Tobacco Use Types Packs/Day Years Used Date Smoking Tobacco: Never Smokeless Tobacco: Never Alcohol Habits Answer Date Recorded How often do you have a drink containing 4 or more times a w elem 05/12/2021 alcohol? How many drinks containing alcohol [...] How often do you attend samaritan or christianity Never 05/12/2021 services? Do you [...] have completed or the highest Young, MEd, FLY FRAME TENDER, ERNIE) degree you have received? Sex [...] 1 tablet (5 mg 90 tablet 3 07/08/2019 mg tabletIndications: total) by mouth Transplant Renal [...]
--- OUTSIDE RECORDS SUMMARY | 2022-08-23 10:03 | XMS_ITS | Encounter Summary ---
:1965 Author Organization [facility] Address [address] [place] [address] Care Team Providers Name Role Phone Unavailable Primary Care Provider Unavailable Encounter Details Date Type Department Care Team Description 06/09/2019 Clinical Communication Joey Ramirez, Bhavya lopez Center for M, NURSES MEDICAL ASSISTANTS PHLEBOTOMISTS, C.N.P., Transplantation and D.N.P. Clinical Regeneration in [address] [place] [address] [place] [phone] [place] [address] [phone] Social History Tobacco Use Types Packs/Day Years Used Date Smoking Tobacco: Never Smokeless Tobacco: Never Alcohol Habits Answer Date Recorded How often do you have a drink containing 4 or more times a w [place] 05/12/2021 alcohol? How many drinks containing alcohol [...] How often do you attend synagogue or jewish Never 05/12/2021 services? Do you [...] have completed or the highest Young, Macy, UX MANAGER, ERNIE) degree you have received? Sex Assigned at Date Recorded Male 05/27/2018 8:52 AM CDT documented as of this encounter Plan of Treatment Not on filedocumented as of this encounter Visit Diagnoses Diagnosis Transplant Renal (HCC) - Primary documented in this encounter
--- OUTSIDE RECORDS SUMMARY | 2022-08-23 10:03 | XMS_ITS | Encounter Summary ---
:1965 Author Organization [facility] Address [address] [place] [address] Care Team Providers Name Role Phone Unavailable Primary Care Provider Unavailable Encounter Details Date Type Department Care Team Description 05/21/2019 Orders Only Monica Kim ransplanbraxton Renal (HCC) (Primary Dx); Center for D, R.N. High Risk Medication Transplantation and [address] [place] [address] in [place], [place] [phone] [place] [address] [place] [address] (Work) [phone] Social History Tobacco Use Types Packs/Day Years Used Date Smoking Tobacco: Never Smokeless Tobacco: Never Alcohol Habits Answer Date Recorded How often do you have a drink containing 4 or more times a w [place] 05/12/2021 alcohol? How many drinks containing alcohol [...] How often do you attend lutheran or church Never 05/12/2021 services? Do you [...] have completed or the highest Young, MEd, FLIGHT LINE MECHANIC, ERNIE) degree you have received? Sex Assigned at Date Recorded Male 05/27/2018 8:52 AM CDT documented as of this encounter Plan of Treatment Not on filedocumented as of this encounter Results Tacrolimus, B (10/15/2019 8:20 AM ENTRY LEVEL INSTALLATION TECHNICIAN) athologist Signature Tacrolimus, B 6.6 5.0-15.0 2019 [facility] (Trough) 1:11 PM ENTRY LEVEL INSTALLATION TECHNICIAN ng/mL Comment: ----ADDITIONAL INFORMATION---- Target steady-state trough concentration s vary depending on the type of transplant, concomitant immunosuppressio n, clinical/institutional protocols, and time post-transplant. Results should be interpreted in conjunction with this clinical information and any physic al signs/symptoms of rejection/toxicity. Testing performed by Liquid Chromatograp hy-Tandem Mass Spectrometry (LC-MS/MS). This test was developed and its performa nce characteristics determined by [facility] in a manner consistent with CLIA requirements. This test has not been cleared or approved by the [place]. Marg[place] d and Drug Administration. Specimen Anatomical Collection Method Collection Time Receive d Time (Source) Location / / Volume Laterality Blood (Blood, 10/15/2019 8:20 AM 10/17/19 20 9:59 Venous) ENTRY LEVEL INSTALLATION TECHNICIAN AM ENTRY LEVEL INSTALLATION TECHNICIAN Resulting Agency Comment Mailed In Specimen Nasra Montalvo APRN, C.N.P., D.N.P. LAB BLOOD NON ADD -ON Performing Organization Address City/State/ZIP Code Phon e Number [facility] [address] [place] [address] SU[facility]ENTER [facility] [place] [address] Laboratory Medicine and Pathology [address] [place] Tacrolimus, B (05/28/2019 7:50 AM CDT) athologist Signature Tacrolimus, B 5.2 5.0-15.0 05/30/2019 (Trough) 4:14 PM CDT ng/mL Comment: ----ADDITIONAL INFORMATION---- Target steady-state trough concentration s vary depending on the type of transplant, concomitant immunosuppressio n, clinical/institutional protocols, and time post-transplant. Results should be interpreted in conjunction with this clinical information and any physic al signs/symptoms of rejection/toxicity. Testing performed by Liquid Chromatograp hy-Tandem Mass Spectrometry (LC-MS/MS). This test was developed and its performa nce characteristics determined by [facility] in a manner consistent with CLIA requirements. This test has not been cleared or approved by the U.[place]. Marg[place] d and Drug Administration. Specimen Anatomical Collection Method Collection Time Receive d Time (Source) Location / / Volume Laterality Blood (Blood, 05/28/2019 7:50 AM 05/30/20 19 Venous) CDT 10:59 AM CDT Resulting Agency Comment Mailed In Specimen Nasra Montalvo APRN, C.N.P., D.N.P. LAB BLOOD NON ADD -ON Performing Organization Address City/State/ZIP Code Phon e Number [facility] [address] [place], [place] [address] [facility] documented in this encounter Visit Diagnoses Diagnosis Transplant Renal (HCC) - Primary High Risk Medication documented in this encounter
--- OUTSIDE RECORDS SUMMARY | 2022-08-23 10:03 | XMS_ITS | Encounter Summary ---
:1965 Author Organization [facility] Address [address] [place] [address] Care Team Providers Name Role Phone Unavailable Primary Care Provider Unavailable Reason for Visit Reason Comments Med Refill Encounter Details Date Type Department Care Team Description 04/21/2019 Refill Division of Endocrinology in [place] Ty M.D. Med Refill [place], [place] [address] [facility] [address] [place] [phone] (Wo rk) Social History Tobacco Use Types Packs/Day Years Used Date Smoking Tobacco: Never Smokeless Tobacco: Never Alcohol Habits Answer Date Recorded How often do you have a drink containing 4 or more times a w kiana 05/12/2021 alcohol? How many drinks containing alcohol [...] How often do you attend caodaism or holiness Never 05/12/2021 services? Do you belong to [...]
--- OUTSIDE RECORDS SUMMARY | 2022-08-23 10:03 | XMS_ITS | Encounter Summary ---
:1965 Author Organization [facility] Address [address] [place] [address] Care Team Providers Name Role Phone Unavailable Primary Care Provider Unavailable Reason for Visit Outpatient (Routine) - Closed Specialty Diagnoses / Procedures Referred By Contact Refer red To Contact Transplant Surgery / Diagnoses Transplant Renal (HCC) Rah Soliz M.D. [facility] Transplant [address] [place] [phone] Referral ID Status Reason Start Date Expiration Date Visits Requ ested Visits Authorized [id number] Closed 02/20/2019 02/20/2020 1 1 Encounter Details Date Type Department Care Team Description 05/12/2019 Comprehensive Visit Department of Loli Wolff toheliosis (Primary Dx); Dermatology mell Cheema M.D., Ph.D. Transplant Renal (HCC); [place], [address] [place] [address] Keratosis Seborrheic; [place], [place] Angioma Howard; [address] [place] [address] Nevi Multiple [place], [place] [phone] (Work) [phone] Social History Tobacco Use Types Packs/Day Years Used Date Smoking Tobacco: Never Smokeless Tobacco: Never Alcohol Habits Answer Date Recorded How often do you have a drink containing 4 or more times a w [place] 05/12/2021 alcohol? How many drinks containing alcohol [...] often do you attend latter day or latter day Never 05/12/2021 services? Do you belong to [...] have completed or the highest Young, MEd, CAR CONSTRUCTION SUPERINTENDENT, ERNIE) degree you have received? Sex Assigned at Date Recorded Male 05/27/2018 8:52 AM CDT documented as of this encounter Consult Notes Loli Wolff M.D., Ph.D. - 05/12/2019 3:00 PM CDT Supervised by: Dr. Ruchi Chowdhury MD Correspondence to Dr. Loli Wolff MD, PhD Patient seen and discussed with supervising makeup sales consultant, who evaluated the patient and concurs with the assessment and plan. CHIEF COMPLAINT / REASON FOR VISIT Chronic immunosuppression HISTORY OF PRESENT ILLNESS Tyler Morocho is a 53 y.o. male who presents today for a skin surveillance. The patient has a history of a renal transplant in 2010 and is chronically immunosuppressed on CellCept, prednisone and tacrolimus. The patient was last seen in outpatient dermatology in May 2018 for a full skin examination. At today's visit, the patient denies any new, changing or painful lesions. No previous history of skin cancer or atypical nevi. No family history of skin cancer. In regards to UV exposure, he has history of minimal sunburns and no tanning bed use. He tries to be diligent with photoprotective measures including sunscreen, wide brimmed hats and sun protective clothing. ALLERGIES Allergies Allergen Reactions ??? No Known Allergies Other (see comments) REVIEW OF SYSTEMS Negative unless otherwise stated in HPI. FAMILY HISTORY No family history of skin cancer. PHYSICAL EXAM General: Awake, alert, in no acute distress, and with appropriate affect. Eyes: No scleral injection or icterus. No eyelid abnormalities. Cardio: No lower extremity edema. Skin: I have examined the scalp, face, neck, chest, abdomen, back, bilateral upper extremities, bilateral lower extremities and buttocks per patient request. Richter skin type II with minimal dermatoheliosis. Scattered red dome-shaped papules consistent with howard angiomas present diffusely. Few brown macules varying in size between 2-3 mm with banal features. Stuck-on waxy oneill papules present involving trunk. ASSESSMENT / PLAN #Chronic immunosuppression, status post renal transplant in 2010 I reminded the patient about the increased risk of skin cancer development in organ transplant recipients. The patient was encouraged to continue sun- protective measures and self-checks of the skin. Patient should report suspicious changes in previously existing lesions or any new lesions. We will continue 12 month follow-up with Dermatology. #Banal-appearing nevi The ABCDE criteria for melanoma was reviewed with the patient. None of the patient's nevi reach the clinical threshold for biopsy. I recommend continued sun protection, self-skin examinations, and observation. Should any of the patient's nevi change in size, color, texture, or shape or develop symptoms such as itching or bleeding, I recommend an immediate return visit for reassessment. #Howard angiomas #Seborrheic keratoses The benign nature of the skin lesion(s) was discussed with the patient. No treatment is required. All questions answered. PATIENT EDUCATION Ready to learn. No apparent learning barriers were identified. Learning preferences include listening. Explained diagnosis and treatment plan; patient/guardian of patient expressed understanding of thecontent. Associated attestation - Ruchi Chowdhury M.D. - 05/12/2019 3:42 PM CDT I saw and evaluated the patient, participating in the maxwell portions of the service. I reviewed the resident/fellow???s note. I agree with the resident/fellow???s findings and plan. documented in this encounter Plan of Treatment Not on filedocumented as of this encounter Visit Diagnoses Diagnosis Dermatoheliosis - Primary Transplant Renal (HCC) Keratosis Seborrheic Angioma Howard Nevi Multiple documented in this encounter
--- OUTSIDE RECORDS SUMMARY | 2022-08-23 10:03 | XMS_ITS | Encounter Summary ---
:1965 Author Organization [facility] Address [address] [place] [address] Care Team Providers Name Role Phone Unavailable Primary Care Provider Unavailable Encounter Details Date Type Department Care Team Description 05/21/2019 Hospital Encounter Department of Nasra Montalvo Tra nsplant Renal (HCC); Laboratory Medicine FAN RUNNER, C.N.P., [facility] Medication and Pathology, D.N.P. [facility] in [address] [place] [phone] [place] [address] [place], [place] (Work) [phone] Social History Tobacco Use Types Packs/Day Years [...] How often do you attend nondenominational or jain Never 05/12/2021 services? Do you [...] have completed or the highest Young, MEd, UTILITIES AND MAINTENANCE SUPERVISOR, ERNIE) degree you have received? Sex [...] mouth Transplant Renal (HCC) daily. tacrolimus (PROGRAF) 1 Take 2 capsules (2 0 05/1206/02/2019 mg capsule mg total) by mouth 2 (two) times a day. 2 mg every morning and 2 mg every evening documented as of this encounter Plan of Treatment Not on filedocumented as of this encounter Procedures Procedure Name Priority Date/Time Associated Comments Diagnosis TACROLIMUS LEVEL, B Routine 05/28/2019 7:50 AM Transplant Mary l Results for this CDT (HCC) procedure are in High Risk the results Medication section. documented in this encounter Results Tacrolimus, B (05/28/2019 7:50 AM CDT) P athologist Signature Tacrolimus, B 5.2 5.0-15.0 05/30/2019 [...] and its performa nce characteristics determined by [facility] in a manner consistent with [...] [address] [place], [place] [address] [facility] documented in this encounter Visit Diagnoses Diagnosis Transplant Renal (HCC) High Risk Medication documented in this encounter
--- OUTSIDE RECORDS SUMMARY | 2022-08-23 10:03 | XMS_ITS | Encounter Summary ---
:1965 Author Organization [facility] Address [address] [place] [address] Care Team Providers Name Role Phone Unavailable Primary Care Provider Unavailable Encounter Details Date Type Department Care Team Description 10/15/2019 Abstract [facility] Provider, Historical Social History Tobacco Use Types Packs/Day Years Used Date Smoking Tobacco: Never Smokeless Tobacco: Never Alcohol Habits Answer Date Recorded How often do you have a drink containing 4 or more times a w [place] 05/12/2021 alcohol? How many drinks containing alcohol [...] How often do you attend confucianism or zoroastrian Never 05/12/2021 services? Do you [...] have completed or the highest Young, MEd, DETAILER SCHOOL PHOTOGRAPHS, ERNIE) degree you have received? Sex Assigned at Date Recorded Male 05/27/2018 8:52 AM CDT documented as of this encounter Plan of Treatment Not on filedocumented as of this encounter Visit Diagnoses Not on filedocumented in this encounter
--- OUTSIDE RECORDS SUMMARY | 2022-08-23 10:03 | XMS_ITS | Encounter Summary ---
:1965 Author Organization [facility] Address [address] [place] [address] Care Team Providers Name Role Phone Unavailable Primary Care Provider Unavailable Encounter Details Date Type Department Care Team Description 04/10/2019 Hospital Encounter Department of Rah Soliz Transpl ant Renal Laboratory Medicine M.DKg (HCC) and Pathology, [address] [place] [address], in [place], [place] [address] [place] [address] [place], [place] (Work) [phone] Social History Tobacco Use Types Packs/Day Years [...] How often do you attend nondenominational or tenriism Never 05/12/2021 services? Do you [...] or slept in a assisted (including now)? Sex Assigned at Date Recorded [...] per mouth daily. capsule alendronate (FOSAMAX) 70 Take 1 tablet (70 12 tablet 3 05/2604/21/2019 mg tablet mg total) by mouth once a week. mycophenolate (CELLCEPT) Take 2 capsules (500 mg tota l) by mouth 2 (two) times a day. take 2 cap in am and 1 capsule in PM. oK FOR SAME 270 capsule 3 05/31/2018 04/21/2019 250 mg capsule GENERIC. predniSONE (DELTASONE) 5 Take 1 tablet (5 mg 90 tablet 3 07/08/2019 mg tabletIndications: total) by mouth Transplant Renal (HCC) daily. tacrolimus (PROGRAF) 1 Take 2-3 capsules 450 capsule 3 11/1805/12/2019 mg capsule (2-3 mg total) by mouth 2 (two) times a day. 3 mg every morning and 2 mg every evening documented as of this encounter Plan of Treatment Not on filedocumented as of this encounter Procedures Procedure Name Priority Date/Time Associated Diagnosis Comme nts PROTEIN, TOTAL, 24 Routine 05/06/2019 8:00 AM Transplant Renal Results for this HR, U CDT ([facility]) procedure are i n the results section. ALBUMIN, 24 HR, U Routine 05/06/2019 8:00 AM Transplant Renal Results for this CDT ([facility]) procedure are i n the results section. documented in this encounter Results Microalbuminuria, 24 Hour, Urine (05/06/2019 8:00 AM CDT) athologist Signature 24 Hour <21 <30 mg/24 h 05/06/2019 Excretion 12:13 PM CDT Comment: ----ADDITIONAL INFORMATION---- This test has been modified from the man ufacturer's instructions. Its performance characteri stics were determined by [facility] in a manner co nsistent with CLIA requirements. This test has not bee n cleared or approved by the U.S. Food and Drug Admin istration. Collection Duration 24 h 05/06/2019 8:40 AM C DT Urine Volume 4129 mL 05/06/2019 8:40 AM CDT Albumin Excretion Rate <14 <20 mcg/min 05/06/2019 12:1 3 PM CDT Albumin Concentration <5.0 mg/L 05/06/2019 12:13 P M CDT Specimen Anatomical Collection Method Collection Time Receive d Time (Source) Location / / Volume Laterality Urine (Urine, 05/06/2019 8:00 AM 05/06 8:40 Hours) CDT AM CDT Resulting Agency Comment Mailed In Specimen Rah Soliz M.D. LAB URINE ORDERABLES Performing Organization Address City/[facility]/ZIP Code Phon e Number [facility] - 200 [place], [place] [address] [facility] Protein, Total, 24 Hour, Urine (05/06/2019 8:00 AM CDT) athologist Signature Total Protein, <165 <229 mg/24 05/06/2019 24 HR, U h 12:52 PM CDT Comment: ----ADDITIONAL INFORMATION---- On 03/20/2017 the total protein assay me thod changed resulting in approximately a 15% increase in prote in values. Collection Duration 24 h 05/06/2019 8:40 AM C DT Urine Volume 4129 mL 05/06/2019 8:40 AM CDT Concentration <4 mg/dL 05/06/2019 12:52 PM CDT Specimen Anatomical Collection Method Collection Time Receive d Time (Source) Location / / Volume Laterality Urine (Urine, 24 05/06/2019 8:00 AM 05/06 8:40 Hours) CDT AM CDT Resulting Agency Comment Mailed In Specimen Rah Soliz M.D. LAB URINE ORDERABLES Performing Organization Address City/State/ZIP Code Phon e Number [facility] - [address] [place], [place] [address] [facility] documented in this encounter Visit Diagnoses Diagnosis Transplant Renal (HCC) documented in this encounter
--- OUTSIDE RECORDS SUMMARY | 2022-08-23 10:03 | XMS_ITS | Encounter Summary ---
:1965 Author Organization [facility] Address [address] [place] [address] Care Team Providers Name Role Phone Unavailable Primary Care Provider Unavailable Encounter Details Date Type Department Care Team Description 05/12/2019 Hospital Encounter Department of Rah Soliz Transpl ant Renal Laboratory Medicine M.DKg (HCC) and Pathology, [address] [place] [address] in [facility] [address] [place] [phone] 200 [facility] (Work) [place], [place] [phone] (Fax) [phone] Social History Tobacco Use Types Packs/Day Years [...] How often do you attend christian or alevism Never 05/12/2021 services? Do you [...] completed or the highest Young, MEd, SUPERVISOR NET MAKING, ERNIE) degree you have received? Sex Assigned at Date Recorded Male 05/27/2018 8:52 AM CDT documented as of this encounter Last Filed Vital Signs Vital Sign Reading Time Taken Comments Blood Pressure - - Pulse - - Temperature - - Respiratory Rate - - Oxygen Saturation - - Inhaled Oxygen Concentration - - Weight 78.3 kg (172 lb 9.9 oz) 05/12/2019 7:04 AM CDT Height 185.9 cm (6' 1.19) 05/12/2019 7:04 AM CDT Body Mass Index 22.66 05/12/2019 7:04 AM CDT documented in this encounter Medications [...] total) by mouth Transplant Renal (HCC) daily. documented as of this encounter Plan of Treatment Scheduled Orders Name Type Priority Associated Diagnoses Order S chedule Short renal clearance: Procedures Routine Transplant Renal O nce for 1 Occurrences Iothalamate (Renal (HCC) starting 05/12/2019 Studies Unit) until 05/12/20 19 documented as of this encounter Procedures Procedure Name Priority Date/Time Associated Comments Diagnosis IOTHALAMATE, Routine 05/12/2019 7:15 AM Results f or this GLOMERULAR CDT procedure are i n FILTRATION RATE, P the resul ts section. documented in this encounter Results (ABNORMAL) Iothalamate, Glomerular Filtration Rate (05/12/2019 7:15 AM CDT) P athologist Signature Uncorrctd 59 mL/min 05/12/2019 Iothal Cl 2:06 PM CDT Corrctd Iothal 50 (L) 71 - 125 05/12/2019 Cl mL/min/BSA 2:06 PM CDT Comment: ----ADDITIONAL INFORMATION---- This test was developed and its performa nce characteristics determined by [facility] in a manner consistent with CLIA requirements. This test has not been cleared or approved by the U.S. Margarita d and Drug Administration. Specimen Anatomical Collection Method Collection Time Receive d Time (Source) Location / / Volume Laterality Varies (Blood, 05/12/2019 7:15 AM 019 Venous) CDT 10:23 AM CDT Narrative [facility] - 05/12/2019 2:07 PM CDT Specimen Information: Specimen ID: [id number] Specimen Type: Varies Specimen Collection Start Date: 05/12/20 ??7:15 AM Specimen Received Date: 05/12/2019 10:23 AM Specimen ID: [id number] Specimen Type: Varies Specimen Collection Start Date: 05/12/20 ??8:20 AM Specimen Received Date: 05/12/2019 10:23 AM Specimen ID: [id number] Specimen Type: Varies Specimen Collection Start Date: 05/12/20 ??9:18 AM Specimen Received Date: 05/12/2019 10:23 AM Specimen ID: [id number] Specimen Type: Varies Specimen Collection Start Date: 05/12/20 ??8:23 AM Specimen Received Date: 05/12/2019 10:23 AM Specimen ID: [id number] Specimen Type: Varies Specimen Collection Start Date: 05/12/20 19 ??9:21 AM Specimen Received Date: 05/12/2019 10:23 AM Rah Soliz M.D. LAB BLOOD NON ADD-ON Performing Organization Address City/State/ZIP Code Phon e Number [facility] - [address] [place], [place] [address] [facility] documented in this encounter Visit Diagnoses Diagnosis Transplant Renal (HCC) documented in this encounter Administered Medications Inactive Administered Medications - up to 3 most recent administrations Medication Order MAR Action Action Date Dose Rate Site iothalamate meglumine 30 Given 05/12/2019 7:19 AM 1 mL Left Upper Arm % injection 1 mL (CONRAY CDT (Back) 30) 1 mL, subcutaneous, Once, On 05/12/19 at 0715, For 1 dose documented in this encounter
--- OUTSIDE RECORDS SUMMARY | 2022-08-23 10:03 | XMS_ITS | Encounter Summary ---
:1965 Author Organization [facility] Address 200 [place] [address] Care Team Providers Name Role Phone Unavailable Primary Care Provider Unavailable Reason for Visit Reason Comments Med Refill Encounter Details Date Type Department Care Team Description 04/21/2019 [facility] Med Refill Transplantation and Clinical 200 [facility] in [place] [address] [place] [address] [place], [place] [phone] Social History Tobacco Use Types Packs/Day Years Used Date Smoking Tobacco: Never Smokeless Tobacco: Never Alcohol Habits Answer Date Recorded How often do you have a drink containing 4 or more times a w [place] 05/12/2021 alcohol? How many drinks containing alcohol [...] 05/12/2021 relatives? How often do you attend buddhism or temple Never 05/12/2021 services? Do you belong to any clubs or organizations such No 05/12/2021 as buddhism groups, unions, fraternal or athletic groups, or [...] slept in a senior care (including now)? Sex Assigned at Date Recorded Male 05/27/2018 8:52 AM CDT documented as of this encounter Plan of Treatment Not on filedocumented as of this encounter Visit Diagnoses Diagnosis Transplant Renal (HCC) - Primary documented in this encounter
--- OUTSIDE RECORDS SUMMARY | 2022-08-23 10:03 | XMS_ITS | Encounter Summary ---
:1965 Author Organization [facility] Address [address] [place] [address] Care Team Providers Name Role Phone Unavailable Primary Care Provider Unavailable Reason for Visit Reason Onset Date Comments Tacrolimus Adjustment Protocol 06/23/2019 Encounter Details Date Type Department Care Team Description 06/23/2019 Clinical [facility] for Zabrina J, Adjustment Transplantation and Hermilo C.C.T. C. Protocol Clinical Regeneration [address] [facility] in [facility] [address] [place] [address] [place], [place] (Work) [phone] [phone] Social History Tobacco Use Types Packs/Day Years Used Date Smoking Tobacco: Never Smokeless Tobacco: Never Alcohol Habits Answer Date Recorded How often do you have a drink containing 4 or more times a w [place] 05/12/2021 alcohol? How many drinks containing alcohol [...] How often do you attend sabianism or taoist Never 05/12/2021 services? Do you [...] have completed or the highest Young, MEd, COSMETOLOGIST, ERNIE) degree you have received? Sex Assigned at Date Recorded Male 05/27/2018 8:52 AM CDT documented as of this encounter Miscellaneous Notes Telephone Encounter - Zabrina Marquez R.N., C.C.T.C. - 06/23/2019 8:08 AM CDT Tacrolimus level within goal range of 6-8, per Tacrolimus Adjustment Protocol no dose change recommended. Current Tacrolimus dose 2.5 mg twice a day . Other lab results received and reviewed, stable trends, continue monitoring every 3 months. documented in this encounter Plan of Treatment Not on filedocumented as of this encounter Visit Diagnoses Not on filedocumented in this encounter
--- OUTSIDE RECORDS SUMMARY | 2022-08-23 10:03 | XMS_ITS | Encounter Summary ---
:1965 Author Organization [facility] Address [address] [place] [address] Care Team Providers Name Role Phone Unavailable Primary Care Provider Unavailable Encounter Details Date Type Department Care Team Description 05/16/2019 Documentation Joey christina [facility] Rah Grant M.D. for Transplantation and [address] [place] [address] Clinical [facility] in [place], [place] [address] [place] [address] [place] [address] (Work) [phone] Social History Tobacco Use Types Packs/Day Years Used Date Smoking Tobacco: Never Smokeless Tobacco: Never Alcohol Habits Answer Date Recorded How often do you have a drink containing 4 or more times a w [place] martinez 05/12/2021 alcohol? How many drinks containing alcohol [...] 05/12/2021 relatives? How often do you attend restorationist or hinduism Never 05/12/2021 services? Do you belong to any clubs or organizations such No 05/12/2021 as restorationist groups, unions, fraternal or athletic groups, or [...] completed or the highest Young, MEd, SAP PP CONSULTANT, ERNIE) degree you have received? Sex Assigned at Date Recorded Male 05/27/2018 8:52 AM CDT documented as of this encounter Progress Notes Rah Soliz M.D. - 05/16/2019 8:15 AM CDT I called Mr. Morocho yesterday and discussed with him that his serum creatinine is back down to 1.4 mg/dL. Therefore we will cancel his kidney transplant biopsy on 05/16/2019. Will repeat lab work including a basic metabolic panel and tacrolimus in one week or so to make sure that his serum creatinine remains low. As for now I discussed with him to hold off on the biopsy. documented in this encounter Plan of Treatment Not on filedocumented as of this encounter Visit Diagnoses Not on filedocumented in this encounter
--- OUTSIDE RECORDS SUMMARY | 2022-08-23 10:03 | XMS_ITS | Encounter Summary ---
:1965 Author Organization [facility] Address [address] [place] [address] Care Team Providers Name Role Phone Unavailable Primary Care Provider Unavailable Reason for Visit Reason Comments Med Refill Encounter Details Date Type Department Care Team Description 07/08[facility] Med Refill Transplantation and Clinical R.N ., C.C.T.C. Regeneration in [place], [facility] 1 [place], [place] [address] [place] [address] [place] [address] [phone] Social History Tobacco Use Types Packs/Day Years Used Date Smoking Tobacco: Never Smokeless Tobacco: Never Alcohol Habits Answer Date Recorded How often do you have a drink containing 4 or more times a w [place] 05/12/2021 alcohol? How many drinks containing alcohol [...] How often do you attend scientology or methodist Never 05/12/2021 services? Do you [...] have completed or the highest Young, MEd, STREETCAR MOTORMAN, ERNIE) degree you have received? Sex Assigned at Date Recorded Male 05/27/2018 8:52 AM CDT documented as of this encounter Plan of Treatment Not on filedocumented as of this encounter Visit Diagnoses Diagnosis Transplant Renal (HCC) documented in this encounter
--- OUTSIDE RECORDS SUMMARY | 2022-08-23 10:03 | XMS_ITS | Encounter Summary ---
:1965 Author Organization [facility] Address [address] [place] [address] Care Team Providers Name Role Phone Unavailable Primary Care Provider Unavailable Encounter Details Date Type Department Care Team Description 05/21/2019 Hospital Encounter Department of Nasra Montalvo Tra nsplant Renal (HCC); Laboratory Medicine SIDE HEMMER, C.N.P., [facility] Medication and Pathology, D.N.P. [facility] in [address] [place] [phone] [place] [address] [place], [place] (Work) [phone] Social History Tobacco Use Types Packs/Day Years Used Date Smoking Tobacco: Never Smokeless Tobacco: Never Alcohol Habits Answer Date Recorded How often do you have a drink containing 4 or more times a w [place] 05/12/2021 alcohol? How many drinks containing alcohol [...] 05/12/2021 relatives? How often do you attend advent or sabianist Never 05/12/2021 services? Do you belong to any clubs or organizations such No 05/12/2021 as advent groups, unions, fraternal or athletic groups, or [...] completed or the highest Young, MEd, RN OBGYN, ERNIE) degree you have received? Sex Assigned [...] Associated Comments Diagnosis TACROLIMUS LEVEL, B Routine 10/15/2019 8:20 AM Transplant Mary l Results for this [facility]OOK (HCC) procedure are in High Risk the results Medication section. documented in this encounter Results Tacrolimus, B (10/15/2019 8:20 AM [facility]) P athologist Signature Tacrolimus, B 6.6 5.0-15.0 2019 [facility] (Trough) 1:11 PM [facility] COOK ng/mL Comment: ----ADDITIONAL INFORMATION---- Target steady-state trough concentration s vary depending on the type of transplant, concomitant immunosuppressio n, clinical/institutional protocols, and time post-transplant. Results should be interpreted in conjunction with this clinical information and any physic al signs/symptoms of rejection/toxicity. Testing performed by Liquid Chromatograp hy-Tandem Mass Spectrometry (LC-MS/MS). This test was developed and its performa nce characteristics determined by [facility] in a manner consistent with CLIA requirements. This test has not been cleared or approved by the [place] d and Drug Administration. Specimen Anatomical Collection Method Collection Time Receive d Time (Source) Location / / Volume Laterality Blood (Blood, 10/15/2019 8:20 AM 10/17/19 9:59 Venous) [facility] AM [facility] Resulting Agency Comment Mailed In Specimen Nasra Montalvo APRN, C.N.P., D.N.P. LAB BLOOD NON ADD -ON Performing Organization Address City/State/ZIP Code Phon e Number [facility] [address] [place] [address] [facility] [place] [address] Laboratory Medicine and Pathology [address] [place] documented in this encounter Visit Diagnoses Diagnosis Transplant Renal (HCC) High Risk Medication documented in this encounter
--- OUTSIDE RECORDS SUMMARY | 2022-08-23 10:03 | XMS_ITS | Encounter Summary ---
:1965 Author Organization [facility] Address [address] [place] [id number] Care Team Providers Name Role Phone Unavailable Primary Care Provider Unavailable Encounter Details Date Type Department Care Team Description 05/12/2019 Hospital Encounter Department of Rah Soliz [facility], in [address] [place] [phone] [place], [place] [phone] (Work) [phone] Social History Tobacco Use Types Packs/Day Years Used Date Smoking Tobacco: Never Smokeless Tobacco: Never Alcohol Habits Answer Date Recorded How often do you have a drink containing 4 or more times a w [place] 05/12/2021 alcohol? How many drinks containing alcohol [...] How often do you attend anabaptism or synagogue Never 05/12/2021 services? Do you [...] have completed or the highest Young, MEd, PETROLEUM PRODUCTION ENGINEER, ERNIE) degree you have received? Sex [...] CHEST AP OR PA RAD - Routine 05/12/2019 10:34 Transplant Renal R esults for this AND LATERAL 2 (most inpatients AM CDT (HCC) procedure are in VIEWS and all the results outpatients) section. documented in this encounter Results DX Chest AP or PA and Lateral 2 Views (05/12/2019 10:34 AM CDT) Anatomical Region Laterality Modality Chest, Thoracic RST LOS, Thoracic ARZ LOS, Thoracic N/A Digital Radiography FLA LOS Specimen (Source) Anatomical Collection Method Collection Time Re ceived Time Location / / Volume Laterality 05/12/2019 10:34 AM CDT Impressions 05/12/2019 10:41 AM CDT No significant change since 05/31/2018. Mild atelectasis/parenchymal scarring in the left base. Otherwise negative chest. Narrative 05/12/2019 10:41 AM CDT EXAM: ??DX CHEST AP OR PA AND LATERAL 2 VIEWS Procedure Note Tj Penny M.D. - 05/12/2019Format ting of this note might be different from the original. EXAM: DX CHEST AP OR PA AND LATERAL 2 EWS IMPRESSION: No significant change since 05/31/2018. Mild atelectasis/parenchymal scarring in the left base. Otherwise negative chest. Rah LOPEZ DIAGNOSTIC IMAGING PROCE REINA documented in this encounter Visit Diagnoses Diagnosis Transplant Renal (HCC) documented in this encounter
--- OUTSIDE RECORDS SUMMARY | 2022-08-23 10:03 | XMS_ITS | Encounter Summary ---
:1965 Author Organization [facility] Address [address] [place] [address] Care Team Providers Name Role Phone Unavailable Primary Care Provider Unavailable Encounter Details Date Type Department Care Team Description 09/19/2019 Hospital Encounter Department of Nasra Montalvo Tra nsplant Renal Laboratory Medicine INSPECT[employer], C.N.P., (HCC[facility], [facility] [address] [place] [phone] [place] [address] [place], [place] (Work) [phone] Social History Tobacco Use Types Packs/Day Years Used Date Smoking Tobacco: Never Smokeless Tobacco: Never Alcohol Habits Answer Date Recorded How often do you have a drink containing 4 or more times a w [place] 05/12/2021 alcohol? How many drinks containing [...] How often do you attend yazidism or judaism Never 05/12/2021 services? Do you belong to [...] completed or the highest Young, MEd, FAMILY LIFE COUNSELOR, ERNIE) degree you have received? Sex [...]
--- OUTSIDE RECORDS SUMMARY | 2022-08-23 10:03 | XMS_ITS | Encounter Summary ---
:1965 Author Organization [facility] Address [address] [place] [address] Care Team Providers Name Role Phone Unavailable Primary Care Provider Unavailable Reason for Visit Reason Onset Date Comments Tacrolimus Adjustment Protocol 02/27/2019 Encounter Details Date Type Department Care Team Description 02/27/2019 Clinical [facility] for Monica D, Adjustment Transplantation and R.N. Protocol Clinical Regeneration [address] [facility] in [facility] [phone] [place] [address] [place], [place] (Work) [phone] Social History Tobacco Use Types Packs/Day Years Used Date Smoking Tobacco: Never Smokeless Tobacco: Never Alcohol Habits Answer Date Recorded How often do you have a drink containing 4 or more times a w [place] 05/12/2021 alcohol? How many drinks containing alcohol [...] How often do you attend muslim or orthodox Never 05/12/2021 services? Do you [...] slept in a skilled nursing (including now)? Sex Assigned at Date Recorded Male 05/27/2018 8:52 AM CDT documented as of this encounter Miscellaneous Notes Telephone Encounter - Monica Harris, R.N. - 02/27/2019 10:37 AM CDT Tacrolimus level within goal range of 6-8, per Tacrolimus Adjustment Protocol no dose change recommended. Lab results received and reviewed, stable trends, continue monitoring every 3 months. documented in this encounter Plan of Treatment Not on filedocumented as of this encounter Visit Diagnoses Not on filedocumented in this encounter
--- OUTSIDE RECORDS SUMMARY | 2022-08-23 10:03 | XMS_ITS | Encounter Summary ---
:1965 Author Organization [facility] Address [address] [place] [address] Care Team Providers Name Role Phone Unavailable Primary Care Provider Unavailable Reason for Visit Reason Onset Date Comments Tacrolimus Adjustment Protocol 04/22/2019 Encounter Details Date Type Department Care Team Description 04/22/2019 Clinical [facility] for Zabrina J, Adjustment Transplantation and Hermilo C.C.T. C. Protocol Clinical Regeneration [address] [facility] in [facility] [phone] [address] [facility] [phone] [place], [place] (Work) [phone] Social History Tobacco Use Types Packs/Day Years Used Date Smoking Tobacco: Never Smokeless Tobacco: Never Alcohol Habits Answer Date Recorded How often do you have a drink containing 4 or more times a w [place] 05/12/2021 alcohol? How many drinks containing alcohol [...] How often do you attend worship or jehovah's witness Never 05/12/2021 services? Do you belong to [...] slept in a nursing home (including now)? Sex Assigned at Date Recorded Male 05/27/2018 8:52 AM CDT documented as of this encounter Miscellaneous Notes Telephone Encounter - Zabrina Marquez R.N., C.C.T.C. - 04/22/2019 1:37 PM CDT Tacrolimus level within goal range of 6-8, per Tacrolimus Adjustment Protocol no dose change recommended. Current Tacrolimus dose 3 mg every morning and 2 mg every evening . Continue monitoring every 3months. documented in this encounter Plan of Treatment Not on filedocumented as of this encounter Visit Diagnoses Not on filedocumented in this encounter
--- OUTSIDE RECORDS SUMMARY | 2022-08-23 10:03 | XMS_ITS | Encounter Summary ---
:1965 Author Organization [facility] Address 200 [place] [address] Care Team Providers Name Role Phone Unavailable Primary Care Provider Unavailable Reason for Visit Reason Comments Med Refill Encounter Details Date Type Department Care Team Description [facility]/04[facility]2019 [facility] Med Refill Transplantation and Clinical 200 [facility] in [facility] [phone] [place] [address] [place], [place] [phone] Social History Tobacco Use Types Packs/Day Years Used Date Smoking Tobacco: Never Smokeless Tobacco: Never Alcohol Habits Answer Date Recorded How often do you have a drink containing 4 or more times a w [place] 05/12/2021 alcohol? How many drinks containing alcohol [...] 05/12/2021 relatives? How often do you attend judaism or hindu Never 05/12/2021 services? Do you belong to any clubs or organizations such No 05/12/2021 as judaism groups, unions, fraternal or athletic groups, or [...] have completed or the highest Young, MEd, FISHING VESSEL OPERATOR, ERNIE) degree you have received? Sex Assigned at Date Recorded Male 05/27/2018 8:52 AM CDT documented as of this encounter Miscellaneous Notes Telephone Encounter - Albertina Dang D.N.P., R.N. - 07/04/2019 11:51 AM CDT Verifying atorvastatin jona. documented in this encounter Plan of Treatment Not on filedocumented as of this encounter Visit Diagnoses Diagnosis Transplant Renal (HCC) documented in this encounter
--- OUTSIDE RECORDS SUMMARY | 2022-08-23 10:03 | XMS_ITS | Encounter Summary ---
:1965 Author Organization [facility] Address [address] [place] [address] Care Team Providers Name Role Phone Unavailable Primary Care Provider Unavailable Reason for Visit Reason Comments Transplant Follow-up Appointment Request (Routine) - Closed Specialty Diagnoses / Procedures Referred By Contact Refer red To Contact Transplant Kidney Pancreas Referral ID Status Reason Start Date Expiration Date Visits Requ ested Visits Authorized [id number] Closed 02/20/2019 02/20/2020 1 Encounter Details Date Type Department Care Team Description 05/12/2019 Office Visit Rah Rey S, Trans plant Renal (HCC) (Primary Dx); Center for M.D. Complication Kidney Transplant (HCC); Transplantation and 200 [facility] [place] W Immunosuppressed State; Clinical Regeneration in [place], [place] Hy perlipidemia; [place], [place] [address] Osteopenia [address] [place] [address] [place], [place] [phone] (Work) [phone] Social History Tobacco Use Types Packs/Day Years Used Date Smoking Tobacco: Never Smokeless Tobacco: Never Alcohol Habits Answer Date Recorded How often do you have a drink containing 4 or more times a w [place] 05/12/2021 alcohol? How many drinks containing alcohol [...] How often do you attend jainism or tenriism Never 05/12/2021 services? Do you [...] have completed or the highest Young, MEd, MAC ARTIST, ERNIE) degree you have received? Sex Assigned at Date Recorded Male 05/27/2018 8:52 AM CDT documented as of this encounter Progress Notes Rah Soliz M.D. - 05/12/2019 1:30 PM CDT I saw and evaluated Mr. Morocho with Dr. Jing Redman. I confirmed the maxwell elements of the history and physical exam. I agree with the findings, assessment and plan of care as outlined in the note. He is doing very well post kidney transplantation. His serum creatinine on 05/06/2019 was slightly higher at 1.7 mg/dL. Concomitantly his tacrolimus trough level was also on the higher side in the range of 8's. Will check his serum creatinine level today and will check his labs in about a month to make sure that the tacrolimus is therapeutic between 6 to 8 . Addendum: His serum creatinine came back higher at 2.0 mg/dL. I called the patient discussed with him that this rises somehow worrisome and I prefer to set him up for kidney transplant biopsy soon. He would like to recheck his labs in few days and if the serum creatinine remains high I highly recommend a biopsy of the kidney transplant and he agreed with that. I asked him to stop the aspirin 81 mg that he takes on daily basis for now in case we proceed with kidney transplant biopsy soon. Rah Soliz M.D. Jing Redman M.B.B.S. - 05/12/2019 1:30 PM CDT .KIDNEY TRANSPLANT FOLLOW UP VISIT REASON FOR VISIT: Tyler Morocho is a 53 y.o. male who presents for kidney transplant and immunosuppression management follow up. 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 His induction regimen consisted of Campath and he is currently on triple immunosuppression therapy.His last kidney biopsy as part of surveillance was done in April 2016 that did not show recurrence of IgA nephropathy and there was mild tubular atrophy interstitial fibrosis with no major chronic findings. Complications posttransplant: 1. Hyperglycemia. This was in early complication that did improve to hemoglobin A1c of 5.2% with exercise however his most recent hemoglobin A1c has increased to 60. 2. Bk viremia: His viremia was monitored without any medication changes and fortunately recent testing shows this has resolved. This visits blood testing showing no evidence of BK virus and plasma. 3. Osteoporosis posttransplant: He was seen by Endocrinology in May 2018. He underwent a secondary evaluation by them and was noted to have abnormal SPEP, bone specific alkaline phosphatase, morning testosterone level, negative celiac screen. He was placed on bisphosphonate-Fosamax as scheduled to receive a repeat DEXA scan in 2019. He has not had any the fragility fractures since his last evaluation. Interval complaints: 1. Fatigued. He is doing a lot of stress at home which could be contributing. No significant sleep abnormalities as he denies unrefreshed sleep or snoring. He is attempting to remain active achieving 10,000 steps on a frequent basis. He does not have a specific exercise plan. 2. He had a question regarding whether he should continue aspirin. We did calculate his risk or and recommend continuing aspirin at this time. He denies any chest pain, shortness of Breath, infectious complications, wound infections, fractures, changes in urinary habits, hematuria or edema. Denies any lightheadedness or dizziness. No new medications apart from Fosamax. Immunosuppressive medication: He is currently on tacrolimus 2 mg b.i.d, prednisone 5 and Cellcept. He is taking 500 mg Cellcept inthe morning and 250 at night. His most recent tacrolimus level is 8.4 and this is a true trough level. His creatinine also has increased to 1.7 from a baseline of 1.6 mg/dl REVIEW OF SYSTEMS: A comprehensive review of systems was obtained and was otherwise negative except what mentioned in the HPI. Answers for HPI/ROS submitted by the patient were reviewed by me when available. PAST MEDICAL AND SURGICAL HISTORIES: Medical records reviewed by me and discussed with the patient and noted below. CKD 2/2 IgA Nephropathy s/p pre-emptive transplant. Past Surgical History: Procedure Laterality Date ??? [...] in the CURRENT MEDICATIONS: Current Outpatient Medications Medication Sig Dispense Refill ??? alendronate (FOSAMAX) 70 mg tablet TAKE 1 TABLET (70 MG TOTAL) BY MOUTH ONCE A WEEK. 12 tablet 3 ??? aspirin [address] tablet Take by mouth daily. ??? atorvastatin (LIPITOR) 20 mg tablet Take 1 tablet (20 mg total) by mouth daily. 90 tablet 3 ??? calcium carbonate-vit D3-min 600 mg calcium- 400 unit tablet Take 1 tablet by mouth. 600 mg/500 international units takes at noon ??? mycophenolate (CELLCEPT) 250 mg capsule Take 1-2 capsules (250-500 mg total) by mouth as directed. (Patient taking differently: Take 250-500 mg by mouth as directed. 2 in am, 1 in pm ) 270 capsule 3 ??? omega-3 fatty acids-fish oil (FISH OIL) 300-1,000 mg capsule Take 2 capsules by mouth daily. ??? predniSONE (DELTASONE) 5 mg tablet Take 1 tablet (5 mg total) by mouth daily. 90 tablet 3 ??? tacrolimus (PROGRAF) 1 mg capsule Take 2 capsules (2 mg total) by mouth 2 (two) times a day. 2 mg every morning and 2 mg every evening ??? multivitamin tablet Take 1 tablet by mouth daily. No current facility-administered medications for this visit. PHYSICAL EXAM: BP: - 99/76 mmhg. GENERAL APPEARANCE: alert and no acute distress SKIN: no acute rash HENT: oropharynx clear, mouth without ulcers or lesions LYMPHATICS: no cervical adenopathy LUNGS: clear to auscultation bilaterally CARDIOVASCULAR: regular rhythm, normal rate, no murmur, gallops or rubs; no LE edema bilaterally ABDOMEN: soft, nondistended, nontender throughout, palaption of the kidney EXTREMETIES: extremities normal - no gross deformities noted NEURO: grossly nonfocal ASSESSMENT, REPORT & PLAN: 1. Status post preemptive living unrelated donor kidney transplant April 2011: Overall his graft function appears to be stable. There is a slight increase in his creatinine to 1.7from a baseline of 1.6. We will repeat creatinine today monitor if there is any further increase that might warrant further intervention that is the biopsy. 2. Immunosuppression management: Will continue current immunosuppression medication - tacrolimus 2 mg b.i.d. - prednisone 5 mg - MMF -500 in the a.m. and 250 mg at nighttime. - target trough 6-8 As his levels are on the higher side we will repeat a tacrolimus trough and BMP in 1 months time. Ifeverything is stable then we can continue monitoring him 3 months. 3. End-stage renal disease due to IgA nephropathy: Previously there was no evidence of IgA recurrence on the kidney transplant biopsy 4. History of lobe grade BK viremia Resolved 5. Osteoprosis: Continue Fosamax as per endocrinology and repeat DEXA in 2019. 6. History of gout 7. Secondary hyperparathyroidism Overall he appears to be very stable and is doing well clinically. Will follow up his creatinine from today as well as his tacrolimus level in 1 months time otherwise follow-up in 1 year's time. Answers for HPI/ROS submitted by the patient on 05/08/2019 No general issues: Yes No eye issues: [...] on filedocumented as of this encounter Results Tacrolimus Level (05/15/2019 7:51 AM CDT) athologist Signature Tacrolimus, B 6.3 5.0-15.0 05/15/2019 (Trough) 1:32 PM CDT ng/mL Comment: ----ADDITIONAL INFORMATION---- Target [...] Location / / Volume Laterality Blood (Blood, 05/15/2019 7:51 AM 05/15/20 19 9:24 Venous) CDT AM CDT Rah Soliz M.D. LAB BLOOD NON ADD-ON Performing Organization Address City/State/ZIP Code Phon e Number [facility] [address] [place], [place] [address] [facility] Prothrombin Time (PT/INR) (05/15/2019 7:51 AM CDT) athologist Signature Prothrombin 12.1 9.4 - 12.5 05/15/2019 Time, P sec 8:22 AM CDT INR 1.1 0.9 - 1.1 05/15/2019 8:22 AM CDT Comment: ----ADDITIONAL INFORMATION---- Standard intensity warfarin therapeutic range: 2.0 to 3.0 ?? High intensity warfarin therapeutic rang e: 2.5 to 3.5 Specimen Anatomical Collection Method Collection Time Receive d Time (Source) Location / / Volume Laterality Blood (Blood, 05/15/2019 7:51 AM 05/15/20 19 8:09 Venous) CDT AM CDT Rah Soliz M.D. LAB BLOOD ADD-ON Performing Organization Address City/State/ZIP Code Phon e Number [facility] - [address] [place] [phone] [facility] CBC with Differential, Blood (05/15/2019 7:51 AM CDT) P athologist Signature Hemoglobin 15.0 13.2 - 05/15/2019 16.6 g/dL 9:29 AM CDT Hematocrit 43.8 38.3 - 05/15/2019 48.6 % 9:29 AM CDT Erythrocytes 4.54 4.35 - 05/15/2019 5.65 9:29 AM CDT x10(12)/L MCV 96.5 78.2 - 05/15/2019 97.9 fL 9:29 AM CDT RBC Distrib Width 12.6 11.8 - 05/15/2019 14.5 % 9:29 AM CDT Platelet Count 147 135 - 317 05/15/2019 x10(9)/L 9:29 AM CDT Leukocytes 4.2 3.4 - 9.6 05/15/2019 x10(9)/L 9:29 AM CDT Neutrophils 2.38 1.56 - 05/15/2019 6.45 9:29 AM CDT x10(9)/L Lymphocytes 1.31 0.95 - 05/15/2019 3.07 9:29 AM CDT x10(9)/L Monocytes 0.43 0.26 - 05/15/2019 0.81 9:29 AM CDT x10(9)/L Eosinophils 0.03 0.03 - 05/15/2019 0.48 9:29 AM CDT x10(9)/L Basophils <0.03 0.01 - 05/15/2019 0.08 9:29 AM CDT x10(9)/L Specimen Anatomical Collection Method Collection Time Receive d Time (Source) Location / / Volume Laterality Blood (Blood, 05/15/2019 7:51 AM 05/15/20 19 8:08 Venous) CDT AM CDT Rah Soliz M.D. LAB BLOOD ADD-ON Performing Organization Address City/State/ZIP Code Phon e Number [facility] - [address] [place], [place] [address] [facility] (ABNORMAL) Basic Metabolic Panel (05/15/2019 7:51 AM CDT) Analysis Performed At [facility] Time Signature Potassium, S 4.3 3.6 - 5.2 05/15/2019 mmol/L 8:52 AM CDT Sodium, S 140 135 - 145 05/15/2019 mmol/L 8:52 AM CDT Chloride, S 104 98 - 107 05/15/2019 mmol/L 8:52 AM CDT Bicarbonate, S 24 22 - 29 05/15/2019 mmol/L 8:52 AM CDT Anion Gap 12 7 - 15 05/15/2019 8:52 AM CDT BUN (Blood Urea 21 8 - 24 05/15/2019 Nitrogen), S mg/dL 8:52 AM CDT Creatinine 1.49 (H) 0.74 - 05/15/2019 1.35 mg/dL 8:52 AM CDT eGFR-Non 53 (L) >=60 05/15/2019 Black/ mL/min/BSA 8:52 AM CDT [place] Comment: ----ADDITIONAL INFORMATION---- Estimated GFR calculated using the 2009 CKD_EPI creatinine equation. eGFR-Black/ 61 >=60 mL/min/BSA 2018 8:52 AM CDT Comment: ----ADDITIONAL INFORMATION---- Estimated GFR calculated using the 2009 CKD_EPI creatinine equation. Calcium, Total, S 9.8 8.6 - 10.0 mg/dL 05/15/2019 8:52 AM CDT Glucose, S 162 (H) 70 - 140 mg/dL 05/15/2019 8:52 AM CDT Specimen Anatomical Collection Method Collection Time Receive d Time (Source) Location / / Volume Laterality Blood (Blood, 05/15/2019 7:51 AM 05/15/20 19 8:09 Venous) CDT AM CDT Rah Soliz M.D. LAB BLOOD ADD-ON Performing Organization Address City/State/ZIP Code Phon e Number [facility] - [address] [place], [place] [address] [facility] (ABNORMAL) Creatinine with Estimated GFR (05/12/2019 2:25 PM CDT) Analysis Performed At Patho logist Time Signature Creatinine 2.03 (H) 0.74 - 05/12/2019 1.35 mg/dL 3:22 PM CDT eGFR-Non 37 (L) >=60 05/12/2019 Black/ mL/min/BSA 3:22 PM CDT [place] Comment: ----ADDITIONAL INFORMATION---- Estimated GFR calculated using the 2009 CKD_EPI creatinine equation. eGFR-Black/ 42 (L) >=60 mL/min/BSA 2018 3:22 PM CDT Comment: ----ADDITIONAL INFORMATION---- Estimated GFR calculated using the 2009 CKD_EPI creatinine equation. Specimen Anatomical Collection Method Collection Time Receive d Time (Source) Location / / Volume Laterality Blood (Blood, 05/12/2019 2:25 PM 05/12/20 19 2:46 Venous) CDT PM CDT Rah Soliz M.D. LAB BLOOD ADD-ON Performing Organization Address City/State/ZIP Code Phon e Number [facility] - [address] [place] [address] [facility] documented in this encounter Visit Diagnoses Diagnosis Transplant Renal (HCC) - Primary Complication Kidney Transplant (HCC) Immunosuppressed State Hyperlipidemia Osteopenia documented in this encounter
--- OUTSIDE RECORDS SUMMARY | 2022-08-23 10:03 | XMS_ITS | Encounter Summary ---
:1965 Author Organization [facility] Address [address] [place] [address] Care Team Providers Name Role Phone Unavailable Primary Care Provider Unavailable Reason for Visit Outpatient (Routine) - Canceled Specialty Diagnoses / Procedures Referred By Contact Refer red To Contact Diagnoses Transplant Renal (HCC) Complication Kidney Transplant (HCC) Rah Soliz M.D. [facility] Procedures US Kidney Transplant Biopsy Right [address] [place] [phone] Referral ID Status Reason Start Date Expiration Date Visits V isits Requested Authorized [id number] Canceled 05/12/2019 05/11/2020 1 1 Encounter Details Date Type Department Care Team Description 05/16/2019 Hospital Encounter Department of Rah Soliz Cancele d (Provider: Vasquez Catalan M.D. Request) Building, in [address] [place] [address] [place] [address] [place], [place] [phone] (Work) [phone] Social History Tobacco Use Types Packs/Day Years Used Date Smoking Tobacco: Never Smokeless Tobacco: Never Alcohol Habits Answer Date Recorded How often do you have a drink containing 4 or more times a w [place] 05/12/2021 alcohol? How many drinks containing alcohol [...] How often do you attend hindu or mu-ism Never 05/12/2021 services? Do you [...] have completed or the highest Young, MEd, ROBOTIC WELDING OPERATOR, ERNIE) degree you have received? Sex [...] (PROGRAF) 1 Take 2 capsules (2 0 08/19 /2019 06/02/2019 mg capsule mg total) by mouth 2 (two) times a day. 2 mg every morning and 2 mg every evening documented as of this encounter Plan of Treatment Not on filedocumented as of this encounter Visit Diagnoses Not on filedocumented in this encounter
--- OUTSIDE RECORDS SUMMARY | 2022-08-23 10:03 | XMS_ITS | Encounter Summary ---
:1965 Author Organization [facility] Address [address] [place] [address] Care Team Providers Name Role Phone Unavailable Primary Care Provider Unavailable Reason for Visit Reason Onset Date Comments Tacrolimus Adjustment Protocol 06/02/2019 Encounter Details Date Type Department Care Team Description 06/02/2019 Clinical Eleni Cristobal Communication Center for M, R.N., Adjustment Transplantation and C.C.T.C. Protocol Clinical Regeneration 200 [facility] in [facility] [address] 200 [facility] [phone] [place], [place] (Work) [phone] Social History Tobacco Use Types Packs/Day Years Used Date Smoking Tobacco: Never Smokeless Tobacco: Never Alcohol Habits Answer Date Recorded How often do you have a drink containing 4 or more times a w [place] 05/12/2021 alcohol? How many drinks containing alcohol [...] How often do you attend hoahaoism or pentecostalism Never 05/12/2021 services? Do you [...] have completed or the highest Young, MEd, BENZENE WASHER, ERNIE) degree you have received? Sex Assigned at Date Recorded Male 05/27/2018 8:52 AM CDT documented as of this encounter Miscellaneous Notes Telephone Encounter - Janell Smith, Pharm.D., R.Ph. - 06/02/2019 10:09 AM CDT Transplanted Organ and Date: 05/22/2011 (Kidney) team number: TXP POST KIDNEY NURSE TEAM 1 ROCH ?? Current tacrolimus goal level: 6-8ng/ml Last tacrolimus level and date: 5.2 ng/ml on 05/28 Current tacrolimus formulation and dose: 2/ ?? Any other pertinent information related to above (please comment on any pertinent answers above)?PerMr. Rice I see that my tacrolimus level was again low at 5.2. I am taking 2mg am and 2mg pm, both with food. If it is okay with you, I would like to take 2mg am _without_ food and 2mg pm with food jay jay-test in two weeks. Whenever we increase to 3mg am and 2mg pm, the levels run too high. Are you okay with his request or should we try 0.5 dose change? 05/15/19: 6.3 ng/ml (6-8) on 2mg twice daily 05/06/19: 8.4 ng/ml (6-8) on supposedly on a dose of 2mg twice daily though unclear when this was decreased from previous. 04/16/19: 6.7 ng/ml (6-8) on 3mg in the morning, 2mg in the evening 02/24/19: 7.6 ng/ml (6-8) on 3mg in the morning, 2mg in the evening Plan: Increase tacrolimus to 2.5mg twice daily. Patient only had one documented supratherapeutic level of 8.4 in the last few months. This was reportedly on a dose of 2mg twice daily though to me, it should have been on a dose of 3mg in the morning, 2mg in the evening. Will try evening out dose using 0.5mg capsules to see if this offers more stability. Recheck tacrolimus level in 2 weeks. Updated prescription sent to [facility] ?? Telephone Encounter - Eleni Henley RKgN. - 06/02/2019 9:25 AM CDT Transplanted Organ and Date:05/22/2011 (Kidney) team number: TXP POST KIDNEY NURSE TEAM 1 ROCH Current tacrolimus goal level:6-8ng/ml Last tacrolimus level and date: 5.2 ng/ml on 05/28 Current tacrolimus formulation and dose: 2/2 Was the tacrolimus dose changed within the last 2 weeks?: No Missed doses in last week: No Medications changes in last week: No Vomiting?No Diarrhea? No New onset GOMEZ? No New onset tremor? No Pharmacy patient uses for immunosuppression: [facility] Any other pertinent information related to above (please comment on any pertinent answers above)?PerMr. Rice I see that my tacrolimus level was again low at 5.2. I am taking 2mg am and 2mg pm, both with food. If it is okay with you, I would like to take 2mg am _without_ food and 2mg pm with food jay jay-test in two weeks. Whenever we increase to 3mg am and 2mg pm, the levels run too high. Are you okay with his request or should we try 0.5 dose change? documented in this encounter Plan of Treatment Not on filedocumented as of this encounter Visit Diagnoses Not on filedocumented in this encounter
--- OUTSIDE RECORDS SUMMARY | 2022-08-23 10:03 | XMS_ITS | Encounter Summary ---
:1965 Author Organization [facility] Address [address] [place] [address] Care Team Providers Name Role Phone Unavailable Primary Care Provider Unavailable Encounter Details Date Type Department Care Team Description 09/09/2019 Clinical Communication Joey Ramirez, Bhavya lopez Center for M, SURTASS ANALYST, C.N.P., Transplantation and D.N.P. Clinical Regeneration in [address] [place] [address] [place] [phone] [place] [address] [phone] Social History Tobacco Use Types Packs/Day Years Used Date Smoking Tobacco: Never Smokeless Tobacco: Never Alcohol Habits Answer Date Recorded How often do you have a drink containing 4 or more times a w [place] 05/12/2021 alcohol? How many drinks containing alcohol [...] How often do you attend christian or yarsanism Never 05/12/2021 services? Do you belong to [...] have completed or the highest Young, Macy, MANAGER REGULATORY, ERNIE) degree you have received? Sex Assigned at Date Recorded Male 05/27/2018 8:52 AM CDT documented as of this encounter Plan of Treatment Not on filedocumented as of this encounter Visit Diagnoses Diagnosis Transplant Renal (HCC) - Primary documented in this encounter
--- OUTSIDE RECORDS SUMMARY | 2022-08-23 10:03 | XMS_ITS | Encounter Summary ---
:1965 Author Organization [facility] Address 200 [place] [address] Care Team Providers Name Role Phone Unavailable Primary Care Provider Unavailable Reason for Visit Reason Comments Med Refill Encounter Details Date Type Department Care Team Description 04/21/2019 [facility] [place], Anushka Kilpatrick R.N. Med Refill Transplantation and Clinical 200 [facility] in [facility] [phone] 200 [facility] [place] [address] Social History Tobacco Use Types Packs/Day Years Used Date Smoking Tobacco: Never Smokeless Tobacco: Never Alcohol Habits Answer Date Recorded How often do you have a drink containing 4 or more times a w [place] 05/12/2021 alcohol? How many drinks containing alcohol [...] How often do you attend yarsanism or voodoo Never 05/12/2021 services? Do you [...] or slept in a halfway (including now)? Sex Assigned at Date Recorded Male 05/27/2018 8:52 AM CDT documented as of this encounter Plan of Treatment Not on filedocumented as of this encounter Visit Diagnoses Not on filedocumented in this encounter
--- OUTSIDE RECORDS SUMMARY | 2022-08-23 10:03 | XMS_ITS | Encounter Summary ---
:1965 Author Organization [facility] Address [address] [place] [address] Care Team Providers Name Role Phone Unavailable Primary Care Provider Unavailable Reason for Visit Reason Onset Date Comments Tacrolimus Adjustment Protocol 2019 Encounter Details Date Type Department Care Team Description 2019 Clinical Eleni Cristobal Communication Center for M, R.N., Adjustment Transplantation and C.C.T.C. Protocol Clinical Regeneration [address] [facility] in [facility] [phone] [facility] [phone] [place], [place] (Work) [phone] Social History Tobacco Use Types Packs/Day Years Used Date Smoking Tobacco: Never Smokeless Tobacco: Never Alcohol Habits Answer Date Recorded How often do you have a drink containing 4 or more times a w [place] 05/12/2021 alcohol? How many drinks containing alcohol [...] 05/12/2021 relatives? How often do you attend restorationism or gnosticism Never 05/12/2021 services? Do you belong to any clubs or organizations such No 05/12/2021 as restorationism groups, unions, fraternal or athletic groups, or [...] have completed or the highest Young, MEd, MASS SPECTROMETRY SPECIALIST, ERNIE) degree you have received? Sex Assigned at Date Recorded Male 05/27/2018 8:52 AM CDT documented as of this encounter Miscellaneous Notes Telephone Encounter - Eleni Henley R.N., C.C.T.C. - 2019 1:39 PM FOOD PRESERVATION SCIENTIST Tacrolimus level within goal range of 6-8, per Tacrolimus Adjustment Protocol no dose change recommended. Current Tacrolimus dose 2.5 mg twice a day. Other lab results received and reviewed, stable trends, continue monitoring every 3 months. PRESERVATION SCIENTIST documented in this encounter Plan of Treatment Not on filedocumented as of this encounter Visit Diagnoses Not on filedocumented in this encounter
--- OUTSIDE RECORDS SUMMARY | 2022-08-23 10:04 | XMS_ITS | Encounter Summary ---
:1965 Author Organization [facility] Address [address] [place] [address] Care Team Providers Name Role Phone Unavailable Primary Care Provider Unavailable Encounter Details Date Type Department Care Team Description 06/03/2018 Orders Only Division of Endocrinology in [place], [place] [address] [place] [address] Social History Tobacco Use Types Packs/Day Years Used Date Smoking Tobacco: Never Smokeless Tobacco: Never Alcohol Habits Answer Date Recorded How often do you have a drink containing 4 or more times a w [place] 05/12/2021 alcohol? How many drinks containing alcohol [...] How often do you attend synagogue or yarsanism Never 05/12/2021 services? Do you [...] or slept in a alf (including now)? Sex Assigned at Date Recorded Male 05/27/2018 8:52 AM CDT documented as of this encounter Plan of Treatment Not on filedocumented as of this encounter Visit Diagnoses Not on filedocumented in this encounter
--- OUTSIDE RECORDS SUMMARY | 2022-08-23 10:04 | XMS_ITS | Encounter Summary ---
:1965 Author Organization [facility] Address [address] [place] [address] Care Team Providers Name Role Phone Unavailable Primary Care Provider Unavailable Reason for Visit Reason Onset Date Comments Tacrolimus Adjustment Protocol 11/15/2018 Encounter Details Date Type Department Care Team Description 11/15/2018 Clinical Ty Long Communication Center for Zabrina J, Adjustment Transplantation and Hermilo C.C.T. C. Protocol Clinical Regeneration [address] [facility] in [facility] [address] [address] [facility] [phone] [place], [place] (Work) [phone] [phone] Social History Tobacco Use Types Packs/Day Years Used Date Smoking Tobacco: Never Smokeless Tobacco: Never Alcohol Habits Answer Date Recorded How often do you have a drink containing 4 or more times a w [place] 05/12/2021 alcohol? How many drinks containing alcohol [...] How often do you attend moravian or jain Never 05/12/2021 services? Do you [...] Encounter - Zabrina Marquez R.N., C.C.T.C. - 11/15/2018 4:59 PM CST Current dose 2 mg twice a day New dose 3 mg every morning and 2 mg every evening SORTER documented in this encounter Plan of Treatment Not on filedocumented as of this encounter Visit Diagnoses Not on filedocumented in this encounter
--- OUTSIDE RECORDS SUMMARY | 2022-08-23 10:04 | XMS_ITS | Encounter Summary ---
:1965 Author Organization [facility] Address [address] [place] [address] Care Team Providers Name Role Phone Unavailable Primary Care Provider Unavailable Encounter Details Date Type Department Care Team Description 08/07/2018 Clinical Communication Joey Mcrae, Center for Neelima J, Transplantation and Adarsh GARCES, Clinical Regeneration in [place], [place] [address] [facility] [address] [place] [phone] Social History Tobacco Use Types Packs/Day Years Used Date Smoking Tobacco: Never Smokeless Tobacco: Never Alcohol Habits Answer Date Recorded How often do you have a drink containing 4 or more times a w [place] 05/12/2021 alcohol? How many drinks containing alcohol [...] How often do you attend mandaeism or evangelical Never 05/12/2021 services? Do you [...] as of this encounter Results Tacrolimus, B (06/18/2019 7:55 AM CDT) athologist Signature Tacrolimus, B 6.4 5.0-15.0 06/20/2019 (Trough) 11:53 PM CDT ng/mL Comment: ----ADDITIONAL INFORMATION---- Target [...] performa nce characteristics determined by [facility] in a manner consistent with CLIA requirements. This test has not been cleared or approved by the [place] Marg[place] d and Drug Administration. Specimen Anatomical Collection Method Collection Time Receive d Time (Source) Location / / Volume Laterality Blood (Blood, 06/18/2019 7:55 AM 06/20/20 1:30 Venous) CDT PM CDT Resulting Agency Comment Mailed In Specimen Neelima Gutierrez APRN, C.N.P., M.S.N. LAB BLOOD NON ADD-ON Performing Organization Address City/State/ZIP Code Phon e Number [facility] [address] [place], [place] [address] [facility] Tacrolimus, B (02/24/2019 7:35 AM CDT) athologist Signature Tacrolimus, B 7.6 5.0-15.0 02/26/2019 (Trough) 2:22 PM CDT ng/mL Comment: ----ADDITIONAL INFORMATION---- Target steady-state trough concentration s vary depending on the type of transplant, concomitant immunosuppressio n, clinical/institutional protocols, and time post-transplant. Results should be interpreted in conjunction with this clinical information and any physic al signs/symptoms of rejection/toxicity. Testing performed by Liquid Spoqaograp hy-Tandem Mass Spectrometry (LC-MS/MS). This test was developed and its performa nce characteristics determined by [facility] in a manner consistent with CLIA requirements. This test has not been cleared or approved by the [place] Marg[place] d and Drug Administration. Specimen Anatomical Collection Method Collection Time Receive d Time (Source) Location / / Volume Laterality Blood (Blood, 02/24/2019 7:35 AM 02/27/20 19 Venous) CDT 11:59 AM CDT Resulting Agency Comment Mailed In Specimen Neelima Gutierrez APRN, C.N.P., M.S.N. LAB BLOOD NON ADD-ON Performing Organization Address City/[facility]/ZIP Code Phon e Number [facility] [address] [place] [phone] [facility] Tacrolimus, B (11/13/2018 8:00 AM MANAGER DATABASE) athologist Signature Tacrolimus, B 5.2 5.0-15.0 11/15/2018 [facility] (Trough) 2:43 PM [address] DAT[address]ASE [address] ng/mL [facility] Comment: ----ADDITIONAL INFORMATION---- Target steady-state trough concentration s vary depending on the type of transplant, concomitant immunosuppressio n, clinical/institutional protocols, and time post-transplant. Results should be interpreted in conjunction with this clinical information and any physic al signs/symptoms of rejection/toxicity. Testing performed by Liquid Chromatograp hy-Tandem Mass Spectrometry (LC-MS/MS). This test was developed and its performa nce characteristics determined by [facility] in a manner consistent with CLIA requirements. This test has not been cleared or approved by the [place]. Marg[place] d and Drug Administration. Specimen Anatomical Collection Method Collection Time Receive d Time (Source) Location / / Volume Laterality Blood (Blood, 11/13/2018 8:00 AM 11/15/19 Venous) MANAGER DATABASE 10:13 AM MANAGER DATABASE Resulting Agency Comment Mailed In Specimen Neelima Gutierrez APRN, C.N.P., M.S.N. LAB BLOOD NON ADD-ON Performing Organization Address City/State/ZIP Code Phon e Number [facility] [address] [place] [phone] [facility] documented in this encounter Visit Diagnoses Diagnosis Transplant Renal (HCC) - Primary documented in this encounter
--- OUTSIDE RECORDS SUMMARY | 2022-08-23 10:04 | XMS_ITS | Encounter Summary ---
:1965 Author Organization [facility] Address [address] [place] [address] Care Team Providers Name Role Phone Unavailable Primary Care Provider Unavailable Encounter Details Date Type Department Care Team Description 01/27/2019 Clinical Communication Joey Mcrae, Center for Neelima J, Transplantation and Adarsh GARCES, Clinical Regeneration in [place], [place] [address] [facility] [address] [place] [phone] Social History Tobacco Use Types Packs/Day Years Used Date Smoking Tobacco: Never Smokeless Tobacco: Never Alcohol Habits Answer Date Recorded How often do you have a drink containing 4 or more times a w [place] 05/12/2021 alcohol? How many drinks containing alcohol [...] How often do you attend muslim or adventist Never 05/12/2021 services? Do you [...] as of this encounter Results Tacrolimus, B (04/16/2019 7:40 AM CDT) athologist Signature Tacrolimus, B 6.7 5.0-15.0 04/18/2019 (Trough) 11:21 AM CDT ng/mL Comment: ----ADDITIONAL INFORMATION---- Target [...] performa nce characteristics determined by [facility] in a manner consistent with CLIA requirements. This test has not been cleared or approved by the [place]. Marg[place] d and Drug Administration. Specimen Anatomical Collection Method Collection Time Receive d Time (Source) Location / / Volume Laterality Blood (Blood, 04/16/2019 7:40 AM 04/18/20 8:01 Venous) CDT AM CDT Resulting Agency Comment Mailed In Specimen Jeaneth Moise APRN.N.P., M.S.N. LAB BLOOD NON ADD-ON Performing Organization Address City/State/ZIP Code Phon e Number [facility] [address] [place] [phone] [facility]ENTER documented in this encounter Visit Diagnoses Diagnosis Transplant Renal (HCC) - Primary documented in this encounter
--- OUTSIDE RECORDS SUMMARY | 2022-08-23 10:04 | XMS_ITS | Encounter Summary ---
:1965 Author Organization [facility] Address [address] [place] [address] Care Team Providers Name Role Phone Unavailable Primary Care Provider Unavailable Encounter Details Date Type Department Care Team Description 08/13/2018 Hospital Encounter Department of Arnulfo Gutierrez Renal Laboratory Medicine Neelima Blakely APRN, (HC C) and Pathology, C.N.P., M.S.[facility] in [address] [place] [phone] [place] [address] [place], [place] (Work) [phone] Social History Tobacco Use Types Packs/Day Years Used Date Smoking Tobacco: Never Smokeless Tobacco: Never Alcohol Habits Answer Date Recorded How often do you have a drink containing 4 or more times a w hoh 05/12/2021 alcohol? How many drinks containing alcohol [...] How often do you attend yarsanism or denominational Never 05/12/2021 services? Do you [...] or slept in a fci (including now)? Sex Assigned at Date Recorded [...] 1 Take 2 capsules (2 360 capsule 03/201811/15/2018 mg capsule mg total) by mouth 2 (two) times a day. documented as of this encounter Plan of Treatment Not on filedocumented as of this encounter Procedures Procedure Name Priority Date/Time Associated Comments Diagnosis TACROLIMUS LEVEL, B Routine 11/13/2018 8:00 AM Transplant Mary l Results for this EDGE SAWYER (HCC) procedure are i n the results section. documented in this encounter Results Tacrolimus, B (11/13/2018 8:00 AM EDGE SAWYER) P athologist Signature Tacrolimus, B 5.2 5.0-15.0 11/15/2018 [facility] (Trough) 2:[address] ng/mL [facility] Comment: ----ADDITIONAL [...] Laterality Blood (Blood, 11/13/2018 8:00 AM 11/15/19 19 Venous) EDGE SAWYER 10:13 AM EDGE SAWYER Resulting Agency Comment Mailed In Specimen Ekta Moise APRNN.Deni., M.S.N. LAB BLOOD NON ADD-ON Performing Organization Address City/State/ZIP Code Phon e Number [facility] [address] [place], [place] [address] [facility] documented in this encounter Visit Diagnoses Diagnosis Transplant Renal (HCC) documented in this encounter
--- OUTSIDE RECORDS SUMMARY | 2022-08-23 10:04 | XMS_ITS | Encounter Summary ---
:1965 Author Organization [facility] Address [address] [place] [address] Care Team Providers Name Role Phone Unavailable Primary Care Provider Unavailable Encounter Details Date Type Department Care Team Description 08/13/2018 Hospital Encounter Department of Arnulfo Gutierrez Renal Laboratory Medicine Neelima Blakely APRN, (HC C) and Pathology, C.N.P., M[facility] [address] [place] [phone] [place] [address] [place], [place] (Work) [phone] Social History Tobacco Use Types Packs/Day Years Used Date Smoking Tobacco: Never Smokeless Tobacco: Never Alcohol Habits Answer Date Recorded How often do you have a drink containing 4 or more times a w nan[place] indian tribe 05/12/2021 alcohol? How many drinks containing [...] How often do you attend anabaptism or congregation Never 05/12/2021 services? Do you [...] or slept in a chcf (including now)? Sex Assigned at Date Recorded [...]
--- OUTSIDE RECORDS SUMMARY | 2022-08-23 10:04 | XMS_ITS | Encounter Summary ---
:[address] [facility] Address [address] [place] [address] Care Team Providers Name Role Phone Unavailable Primary Care Provider Unavailable Encounter Details Date Type Department Care Team Description 06/06/2018 Nurse Only Section of Preventive, Kami Suárez, Transportation and P.A.-C., M.S. Occupational Medicine in [address] [place] [address] [place] [phone] [place] [address] [phone] Social History Tobacco Use Types Packs/Day Years [...] often do you attend oriental orthodox or jain Never 05/12/2021 services? Do you [...] or slept in a usp (including now)? Sex Assigned at Date Recorded Male 05/27/2018 8:52 AM CDT documented as of this encounter Plan of Treatment Not on filedocumented as of this encounter Visit Diagnoses Diagnosis Transplant Renal (HCC) documented in this encounter
--- OUTSIDE RECORDS SUMMARY | 2022-08-23 10:04 | XMS_ITS | Encounter Summary ---
:1965 Author Organization [facility] Address [address] [place] [address] Care Team Providers Name Role Phone Unavailable Primary Care Provider Unavailable Encounter Details Date Type Department Care Team Description 07/17/2018 Clinical Communication Joey Ramirez, Bhavya lopez Center for M, PAINTING CONTRACTOR, C.N.P., Transplantation and D.N.P. Clinical Regeneration in [address] [place] [address] [place] [address] [place] [address] [phone] Social History Tobacco Use Types Packs/Day Years Used Date Smoking Tobacco: Never Smokeless Tobacco: Never Alcohol Habits Answer Date Recorded How often do you have a drink containing 4 or more times a w [place] 05/12/2021 alcohol? How many drinks containing alcohol [...] How often do you attend orthodox or faith Never 05/12/2021 services? Do you [...] or slept in a mcfp (including now)? Sex Assigned at Date Recorded Male 05/27/2018 8:52 AM CDT documented as of this encounter Plan of Treatment Not on filedocumented as of this encounter Results Tacrolimus Level (07/30/2018 7:30 AM ECONOMIC MANAGER) P athologist Signature Tacrolimus, B 5.8 5.0-15.0 07/31/2018 [facility] (Trough) 1:02 PM ECONOMIC MANAGER [address] ng/mL [facility] Comment: ----ADDITIONAL [...] its performa nce characteristics determined by [facility] in a manner consistent with CLIA requirements. This test has not been cleared or approved by the [place]. [place] and Drug Administration. Specimen Anatomical Collection Method Collection Time Receive d Time (Source) Location / / Volume Laterality Blood (Blood, 07/30/2018 7:30 AM 07/31/20 18 Venous) ECONOMIC MANAGER 10:11 AM ECONOMIC MANAGER Resulting Agency Comment Mailed In Specimen Nasra Montalvo APRN, C.N.P., D.N.P. 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
--- OUTSIDE RECORDS SUMMARY | 2022-08-23 10:04 | XMS_ITS | Encounter Summary ---
:1965 Author Organization [facility] Address [address] [place] [address] Care Team Providers Name Role Phone Unavailable Primary Care Provider Unavailable Encounter Details Date Type Department Care Team Description 01/31/2019 Hospital Encounter Department of Arnulfo Gutierrez nt Renal Laboratory Medicine Neelima Blakely APRN, (HC C) and Pathology, C.N.P., M[facility] [address] [place] [phone] [place] [address] [place], [place] (Work) [phone] Social History Tobacco Use Types Packs/Day Years [...] How often do you attend presybeterian or protestant Never 05/12/2021 services? Do you [...] or slept in a long-term (including now)? Sex Assigned at Date Recorded [...] Associated Comments Diagnosis TACROLIMUS LEVEL, B Routine 04/16/2019 7:40 AM Transplant Mary l Results for this CDT ([facility]) procedure are i n the results section. documented in this encounter Results Tacrolimus, B (04/16/2019 7:40 AM CDT) P athologist Signature Tacrolimus, B 6.7 5.0-15.0 04/18/2019 [...] its performa nce characteristics determined by [facility] in a manner consistent with CLIA requirements. [...] Code Phon e Number [facility] [address] [place] [address] [facility] documented in this encounter Visit Diagnoses Diagnosis Transplant Renal (HCC) documented in this encounter
--- OUTSIDE RECORDS SUMMARY | 2022-08-23 10:04 | XMS_ITS | Encounter Summary ---
:1965 Author Organization [facility] Address [address] [place] [address] Care Team Providers Name Role Phone Unavailable Primary Care Provider Unavailable Reason for Referral Outpatient (Routine) - Closed Specialty Diagnoses / Procedures Referred By Contact Refer red To Contact Endocrinology Apollo Ty M.D. [facility] [address] [place] [address] Referral ID Status Reason Start Date Expiration Date Visits Requ ested Visits Authorized [id number] Closed 06/18/2018 06/18/2019 1 1 Outpatient (Routine) - Closed Specialty Diagnoses / Procedures Referred By Contact Refer red To Contact Radiology Diagnoses Osteoporosis Apollo Ty M.D. Procedures BMD Bone Density Spine Hips BMD BONE DENSITY SPINE HIPS DC DEXA BONE DENSITY AXIAL [facility]ATION HC XR DEXA AXIAL SKLTN [address] [place] [phone] Referral ID Status Reason Start Date Expiration Date Visits Requ ested Visits Authorized [id number] Closed 06/18/2018 06/18/2019 1 1 Reason for Visit Outpatient (Routine) - Closed Specialty Diagnoses / Procedures Referred By Contact Refer red To Contact Endocrinology Apollo Ty M.D. [facility] [address] [place], [place] [phone] Referral ID Status Reason Start Date Expiration Date Visits Requ ested Visits Authorized [id number] Closed 06/03/2018 06/03/2019 1 1 Encounter Details Date Type Department Care Team Description 06/18/2018 Office Visit Division of Apollo Ty, Osteoporosis ( Primary Endocrinology in M.D. Dx) [place], [place] [address] [facility] [address] [place] [address] [phone] Social History Tobacco Use Types Packs/Day Years Used Date Smoking Tobacco: Never Smokeless Tobacco: Never Alcohol Habits Answer Date Recorded How often do you have a drink containing 4 or more times a w [place] 05/12/2021 alcohol? How many drinks containing alcohol [...] 05/12/2021 relatives? How often do you attend restoration or orthodox Never 05/12/2021 services? Do you belong to any clubs or organizations such No 05/12/2021 as restoration groups, unions, fraternal or athletic groups, or [...] or slept in a retirement (including now)? Sex Assigned at Date Recorded Male 05/27/2018 8:52 AM CDT documented as of this encounter Progress Notes Apollo Ty M.D., M.S. - 06/18/2018 4:30 PM CDT [facility] Endocrinology, Diabetes, and Nutrition Endocrinology Fellow's Continuity Clinic Return patient visit Date of Visit: 06/18/2018 Assessment and plan: Patient was seen by me with at bone clinic on June 03 please refer to the note datedon the same day for full consult. Briefly this is a patient here for evaluation of accelerated bone mineral density loss after drug holiday since 2016. We send out workup of secondary osteoporosis since the last visit and today he is here to review the result. I have discussed the results with him including a normal SPEP, bone specific alk phosphatase, morning testosterone level, negative celiac disease screen etc. There is no clear evidence of secondary osteoporosis and our explanation of tppwyn-gfby-hwgrbgcn bone mineral loss is that steroid usage plus CKD status. We think the benefit of starting another cycle of the biphosphonate-Fosamax 70 mg Q weekly p.o. outweighs the risk. We plan to repeat DEXA scan in 2 years from now and I will see him in the clinic at that time. I also told him that if he develops fragility fracture, he should come right after for an early evaluation. Other recommendations please refer to my previous note dated on June 03. All questions were answered. Plan was discussed with supervising partner management consultant Dr. Wolf. Apollo Ty MD, MSc PGY-4 Endocrinology Fellow Pager: [phone] Tractor Expert: [phone] Appointment: [phone] Associated attestation - Drew Wolf M.D. - 06/19/2018 5:20 PM CDT I have discussed Mr. Morocho's care with Dr. Ty as well as reviewed the medical record. I agree with Dr. Ty's recommendations. documented in this encounter Plan of Treatment Scheduled Referrals Name Type Priority Associated Order Schedule Diagnoses Endocrinology office Outpatient Referral Routine Expected: visit (clinic) 06/18/2020 (Approximate), Expires: 06/18/2021 documented as of this encounter Results BMD Bone [...] including images and graphs, is available in investUPEAAlliance Card. ?In the absence of other causes of [...] evidence of skeletal fragility in the [facility]. Degenerative changes are present which m ay spuriously elevate the spine BMD measurement. Patient does not meet ISCD guidelines fo r FRAX calculations. IMPRESSION: Osteoporosis Apollo LOPEZ DXA PROCEDURES documented in this encounter Visit Diagnoses Diagnosis Osteoporosis - Primary Osteoporosis documented in this encounter
--- OUTSIDE RECORDS SUMMARY | 2022-08-23 10:04 | XMS_ITS | Encounter Summary ---
:1965 Author Organization [facility] Address [address] [place] [address] Care Team Providers Name Role Phone Unavailable Primary Care Provider Unavailable Reason for Visit Reason Onset Date Comments Telephone 06/06/2018 Encounter Details Date Type Department Care Team Description 06/06/2018 Clinical Communication Zayra Rey, Telephone Center for M.D. Transplantation and [address] [place] [address] in [place], [place] [address] [place] [address] [place] [address] (Work) [phone] Social History Tobacco Use Types Packs/Day Years Used Date Smoking Tobacco: Never Smokeless Tobacco: Never Alcohol Habits Answer Date Recorded How often do you have a drink containing 4 or more times a w [place] 05/12/2021 alcohol? How many drinks containing alcohol [...] 05/12/2021 relatives? How often do you attend mormonism or anglican Never 05/12/2021 services? Do you belong to any clubs or organizations such No 05/12/2021 as mormonism groups, unions, fraternal or athletic groups, or [...] or slept in a penitentiary (including now)? Sex Assigned at Date Recorded Male 05/27/2018 8:52 AM CDT documented as of this encounter Miscellaneous Notes Telephone Encounter - Latesha Orantes R.N., C.C.T.C. - 06/06/2018 4:24 PM CDT Patient scheduled for his immunization today. Telephone Encounter - Paula Bae - 06/06/2018 11:56 AM CDT Patient saw Dr. Soliz last week and wasn't able to get his shingles vaccine completed. He is here at the clinic today and wondering if he can get that done. Please call him back to discuss. Thank you. documented in this encounter Plan of Treatment Not on filedocumented as of this encounter Visit Diagnoses Not on filedocumented in this encounter
--- OUTSIDE RECORDS SUMMARY | 2022-08-23 10:04 | XMS_ITS | Encounter Summary ---
:1965 Author Organization [facility] Address [address] [place] [address] Care Team Providers Name Role Phone Unavailable Primary Care Provider Unavailable Encounter Details Date Type Department Care Team Description 08/13/2018 Hospital Encounter Department of Arnulfo Gutierrez Renal Laboratory Medicine Neelima Blakely APRN, (HC C) and Pathology, C.N.P., [facility] [address] [place] [phone] [place] [address] [place], [place] (Work) [phone] Social History Tobacco Use Types Packs/Day Years [...] 05/12/2021 relatives? How often do you attend taoism or zoroastrian Never 05/12/2021 services? Do you belong to any clubs or organizations such No 05/12/2021 as taoism groups, unions, fraternal or athletic groups, or [...] Associated Comments Diagnosis TACROLIMUS LEVEL, B Routine 02/24/2019 7:35 AM Transplant Mary l Results for this CDT ([facility]) procedure are i n the results section. documented in this encounter Results Tacrolimus, B (02/24/2019 7:35 AM CDT) P athologist Signature Tacrolimus, B 7.6 5.0-15.0 02/26/2019 [...] performa nce characteristics determined by [facility] in a manner consistent with CLIA requirements. This test has not been cleared or approved by the [place] d and Drug Administration. Specimen Anatomical Collection Method Collection Time Receive d Time (Source) Location / / Volume Laterality Blood (Blood, 02/24/2019 7:35 AM 02/27/20 19 Venous) CDT 11:59 AM CDT Resulting Agency Comment Mailed In Specimen Ekta Moise APRNN.Deni., M.S.N. LAB BLOOD NON ADD-ON Performing Organization Address City/State/ZIP Code Phon e Number [facility] [address] [place], [place] [address] [facility] documented in this encounter Visit Diagnoses Diagnosis Transplant Renal (HCC) documented in this encounter
--- OUTSIDE RECORDS SUMMARY | 2022-08-23 10:04 | XMS_ITS | Encounter Summary ---
:1965 Author Organization [facility] Address [address] [place] [address] Care Team Providers Name Role Phone Unavailable Primary Care Provider Unavailable Encounter Details Date Type Department Care Team Description 07/18/2018 Hospital Encounter Department of Nasra Montalvo Tra nsplant Renal Laboratory Medicine FIREWORKS DISPLAY SPECIALIST, C.N.P., (HCC) and [facility] [address] [place] [phone] [place] [address] [place], [place] (Work) [phone] Social History Tobacco Use Types Packs/Day Years Used Date Smoking Tobacco: Never Smokeless Tobacco: Never Alcohol Habits Answer Date Recorded How often do you have a drink containing 4 or more times a w [place] 05/12/2021 alcohol? How many drinks containing alcohol [...] How often do you attend nondenominational or yarsanism Never 05/12/2021 services? Do you [...] Associated Comments Diagnosis TACROLIMUS LEVEL, B Routine 07/30/2018 7:30 AM Transplant Mary l Results for this COSTING ANALYST (HCC) procedure are i n the results section. documented in this encounter Results Tacrolimus Level (07/30/2018 7:30 AM COSTING ANALYST) P athologist Signature Tacrolimus, B 5.8 5.0-15.0 07/31/2018 [facility] (Trough) 1:[address] ANALYST [address] ng/mL [facility] Comment: ----ADDITIONAL [...] performa nce characteristics determined by [facility] in a manner consistent with CLIA requirements. This test has not been cleared or approved by the [place] d and Drug Administration. Specimen Anatomical Collection Method Collection Time Receive d Time (Source) Location / / Volume Laterality Blood (Blood, 07/30/2018 7:30 AM 07/31/20 18 Venous) COSTING ANALYST 10:11 AM COSTING ANALYST Resulting Agency Comment Mailed In Specimen Nasra Montalvo APRN C.N.P., D.N.P. LAB BLOOD NON ADD -ON Performing Organization Address City/State/ZIP Code Phon e Number [facility] [address] [place], [place] [phone] [facility] documented in this encounter Visit Diagnoses Diagnosis Transplant Renal (HCC) documented in this encounter
--- OUTSIDE RECORDS SUMMARY | 2022-08-23 10:04 | XMS_ITS | Encounter Summary ---
:1965 Author Organization [facility] Address [address] [place] [address] Care Team Providers Name Role Phone Unavailable Primary Care Provider Unavailable Encounter Details Date Type Department Care Team Description 07/16/2018 Clinical Communication Jesika López Center for C, SPEED WINDER, Transplantation and C.N.P., R.N. Clinical Regeneration in [place], [place] [address] [place] [phone] Social History Tobacco Use Types Packs/Day Years Used Date Smoking Tobacco: Never Smokeless Tobacco: Never Alcohol Habits Answer Date Recorded How often do you have a drink containing 4 or more times a w [place] 05/12/2021 alcohol? How many drinks containing alcohol [...] 05/12/2021 relatives? How often do you attend amish or orthodox Never 05/12/2021 services? Do you belong to any clubs or organizations such No 05/12/2021 as amish groups, unions, fraternal or athletic groups, or [...] or slept in a detention (including now)? Sex Assigned at Date Recorded Male 05/27/2018 8:52 AM CDT documented as of this encounter Miscellaneous Notes Telephone Encounter - Brenda Bautista PharmKgDKg, R.Ph. - 07/16/2018 2:47 PM CDT Transplanted Organ and Date:05/22/2011 (Kidney) team number: TXP POST KIDNEY NURSE TEAM 1 ROCH Current Goal: 6-8 ng/ml 07/02: 5.6 ng/ml on 2 mg twice daily (taking empty stomach) 05/31: level 10.1, no change per Dr. Soliz at annual visit (was taking tacrolimus with food) 02/20: level 6.3, no change 01/21: level 10.5, dose decreased back to 2 mg in AM, 2 mg in PM 12/19: level 4.8, dose increased to 3 mg in AM, 2 mg in PM Medications are taken at 7:45 AM and PM. Looks like level drawn at 7:50 AM. Plan: No change in dose. Please recheck the trough in approximately 2-4 weeks. Telephone Encounter - Albertina Dang R.N. - 07/16/2018 2:03 PM CDT Transplanted Organ and Date:05/22/2011 (Kidney) team number: TXP POST KIDNEY NURSE TEAM 1 ROCH Current tacrolimus goal level:6-8ng/ml Last tacrolimus level and date: 5.6 ng/ml on 07/02 Current tacrolimus formulation and dose: 2 mg twice a day Was the tacrolimus dose changed within the last 2 weeks?: No Missed doses in last week: No Medications changes in last week: No Vomiting?No Diarrhea? No New onset GOMEZ? No New onset tremor? No Pharmacy patient uses for immunosuppression: [id number], [place], [place] Any other pertinent information related to above (please comment on any pertinent answers above)? Per protocol, I would increase dose. However, doses have fluctuated and patient questions dose change. Please advise. Per patient: If it helps, for several weeks prior to my annual appointment with Dr. Soliz, I had been taking my morning tacro with food; after my appointment with Dr. Soliz (and a 10 tacro level), I stopped taking mymorning dose with food (like I had been before) -- morning tacro dose on an empty stomach and food 30 minutes later. For what it's worth, In the past, we adjusted to 3mg AM dose, then tacro goes too high, and we go back to 2mg. 12/19: level 4.8, dose increased to 3 mg in AM, 2 mg in PM 01/21: level 10.5, dose decreased back to 2 mg in AM, 2 mg in PM 02/20: level 6.3, no change 05/31: level 10.1, no change per Dr. Soliz at annual visit 07/02: level 5.6, please advise documented in this encounter Plan of Treatment Not on filedocumented as of this encounter Visit Diagnoses Not on filedocumented in this encounter
--- OUTSIDE RECORDS SUMMARY | 2022-08-23 10:04 | XMS_ITS | Encounter Summary ---
:1965 Author Organization [facility] Address [address] [place] [address] Care Team Providers Name Role Phone Unavailable Primary Care Provider Unavailable Reason for Visit Reason Onset Date Comments Tacrolimus Adjustment Protocol 08/01/2018 Encounter Details Date Type Department Care Team Description 08/01/2018 Clinical [place] Long Communication Center for Jenny J, Adjustment Transplantation and Hermilo C.C.T. C. Protocol Clinical Regeneration [address] [facility] in [facility] [phone] [address] [facility] [phone] [place], [place] (Work) [phone] Social History Tobacco Use Types Packs/Day Years Used Date Smoking Tobacco: Never Smokeless Tobacco: Never Alcohol Habits Answer Date Recorded How often do you have a drink containing 4 or more times a w [place] 05/12/2021 alcohol? How many drinks containing alcohol [...] How often do you attend sabianism or baptist Never 05/12/2021 services? Do you belong to [...] or slept in a mcc (including now)? Sex Assigned at Date Recorded Male 05/27/2018 8:52 AM CDT documented as of this encounter Miscellaneous Notes Addendum Note - Jenny Hurtado R.N., C.C.T.CKg - 08/01/2018 7:30 AM FOREST NURSERY SUPERVISOR Addended by: JENNY HURTADO on: 08/01/2018 07:30 AM Modules accepted: Orders, SmartSet ST NURSERY SUPERVISOR Telephone Encounter - Jenny Hurtado R.N., C.C.T.CKg - 08/01/2018 7:29 AM CST Tacrolimus level within goal range of 6-8, per Tacrolimus Adjustment Protocol no dose change recommended. Lab results received and reviewed, stable trends, continue monitoring every [address] NURSERY SUPERVISOR documented in this encounter Plan of Treatment Not on filedocumented as of this encounter Visit Diagnoses Not on filedocumented in this encounter
--- OUTSIDE RECORDS SUMMARY | 2022-08-23 10:04 | XMS_ITS | Encounter Summary ---
:1965 Author Organization [facility] Address [address] [place] [address] Care Team Providers Name Role Phone Unavailable Primary Care Provider Unavailable Encounter Details Date Type Department Care Team Description 08/13/2018 Hospital Encounter Department of Arnulfo Gutierrez Renal Laboratory Medicine Neelima Blakely APRN, (HC C) and Pathology, C.N.P., [facility] [address] [place] [phone] [place] [place] [address] [place], [place] (Work) [phone] Social History Tobacco Use Types Packs/Day Years Used Date Smoking Tobacco: Never Smokeless Tobacco: Never Alcohol Habits Answer Date Recorded How often do you have a drink containing 4 or more times a w [place] 05/12/2021 alcohol? How many drinks containing alcohol [...] 05/12/2021 relatives? How often do you attend alevism or catholic Never 05/12/2021 services? Do you belong to any clubs or organizations such No 05/12/2021 as alevism groups, unions, fraternal or athletic groups, or [...] Associated Comments Diagnosis TACROLIMUS LEVEL, B Routine 06/18/2019 7:55 AM Transplant Mary l Results for this CDT ([facility]) procedure are i n the results section. documented in this encounter Results Tacrolimus, B (06/18/2019 7:55 AM CDT) P athologist Signature Tacrolimus, B 6.4 5.0-15.0 06/20/2019 [...] its performa nce characteristics determined by [facility] in a manner consistent with CLIA requirements. This test has not been cleared or approved by the [place]. Margar[place] d and Drug Administration. Specimen Anatomical Collection Method Collection Time Receive d Time (Source) Location / / Volume Laterality Blood (Blood, 06/18/2019 7:55 AM 06/20/20 19 1:30 Venous) CDT PM CDT Resulting Agency Comment Mailed In Specimen Neelima Gutierrez APRN, C.N.P., M.S.N. LAB BLOOD NON ADD-ON Performing Organization Address City/State/ZIP Code Phon e Number [facility] [address] [place], [place] [address] [facility] documented in this encounter Visit Diagnoses Diagnosis Transplant Renal (HCC) documented in this encounter
--- OUTSIDE RECORDS SUMMARY | 2022-08-23 10:04 | XMS_ITS | Encounter Summary ---
:1965 Author Organization [facility] Address [address] [place] [address] Care Team Providers Name Role Phone Unavailable Primary Care Provider Unavailable Reason for Visit Reason Comments Med Refill Encounter Details Date Type Department Care Team Description 11/18/2018 [facility] Med Refill Transplantation and Clinical R.N ., C.C.T.C. Regeneration in [place] [address] [place], [place] [address] [place] [phone] [place] [phone] Social History Tobacco Use Types Packs/Day Years [...] How often do you attend cheondoism or jainism Never 05/12/2021 services? Do you [...]
--- OUTSIDE RECORDS SUMMARY | 2022-08-23 10:04 | XMS_ITS | Encounter Summary ---
:1965 Author Organization [facility] Address [address] [place] [address] Care Team Providers Name Role Phone Unavailable Primary Care Provider Unavailable Reason for Visit Reason Onset Date Comments Tacrolimus Adjustment Protocol 11/26/2018 Encounter Details Date Type Department Care Team Description 11/26/2018 Clinical [facility] for Zabrina J, Adjustment Transplantation and Hermilo C.C.T. C. Protocol Clinical Regeneration [address] [facility] in [facility] [phone] [address] [facility] [phone] [place], [place] (Work) [phone] Social History Tobacco Use Types Packs/Day Years Used Date Smoking Tobacco: Never Smokeless Tobacco: Never Alcohol Habits Answer Date Recorded How often do you have a drink containing 4 or more times a w [place] 05/12/2021 alcohol? How many drinks containing alcohol [...] or slept in a longterm (including now)? Sex Assigned at Date Recorded Male 05/27/2018 8:52 AM CDT documented as of this encounter Miscellaneous Notes Telephone Encounter - Zabrina Marquez R.N., C.C.T.C. - 11/26/2018 4:36 PM CST Tacrolimus level within goal range of 6-8, per Tacrolimus Adjustment Protocol no dose change recommended. Lab results received and reviewed, stable trends, continue monitoring every 3 months. O AERIAL INSTALLER documented in this encounter Plan of Treatment Not on filedocumented as of this encounter Visit Diagnoses Not on filedocumented in this encounter
--- OUTSIDE RECORDS SUMMARY | 2022-08-23 10:04 | XMS_ITS | Encounter Summary ---
:1965 Author Organization [facility] Address [address] [place] [address] Care Team Providers Name Role Phone Unavailable Primary Care Provider Unavailable Reason for Referral Outpatient (Routine) - Closed Specialty Diagnoses / Procedures Referred By Contact Refer red To Contact Transplant Surgery / Diagnoses Transplant Renal (HCC) Rah Soliz M.D. [facility] Transplant [address] [place] [address] Referral ID Status Reason Start Date Expiration Date Visits Requ ested Visits Authorized [id number] Closed 02/20/2019 02/20/2020 1 1 utpatient (Routine) - Closed Specialty Diagnoses / Procedures Referred By Contact Refer red To Contact Diagnoses Transplant Renal (HCC) Rah Soliz M.D. [facility] Procedures ECG 12 Lead PA EKG 12 LEAD TRACE ONLY PA EKG I&R ONLY [address] [place] [address] Referral ID Status Reason Start Date Expiration Date Visits Requ ested Visits Authorized [id number] Closed 02/20/2019 02/20/2020 1 1 Reason for Visit Reason Onset Date Comments AGUSTIN 02/20/2019 9 Yr KANN Encounter Details Date Type Department Care Team Description 02/20/2019 Clinical Communication Zayra Rey (9 Yr ) [place] for S, [facility]. Transplantation and [address] [facility] Clinical Regeneration in [facility], [facility] [address] [place] [phone] Social History Tobacco Use Types Packs/Day Years Used Date Smoking Tobacco: Never Smokeless Tobacco: Never Alcohol Habits Answer Date Recorded How often do you have a drink containing 4 or more times a w grindstone 05/12/2021 alcohol? How many drinks containing alcohol [...] How often do you attend hindu or anabaptism Never 05/12/2021 services? Do you [...] minutes do you engage in exercise at is 30 min 05/12/2021 level? Stress Answer [...] this encounter Miscellaneous Notes Telephone Encounter - Concetta Clinton E - 02/20/2019 10:59 AM CDT Patient is scheduled for an annual visit on: 05/12 ?Annual Year: ??8 ? Provider: Martínez ONLY Preferred follow up: [ ?? ] Patient Portal Message [ ?? ] Telephone Call Phone Number: [ x ??] Mail PAG Patient: ??[x ] Driving or [ ?? ] Flying for Urine Kit. Is patient a Dual Organ Patient? [ ?? ] Yes ?[ x ??] No ?They will be seeing: ??[Provider Name] Biopsy: [ ?? ] Right ? [ ?? ] Left ? [ x ?? ] Not a Biopsy Year ?? If Patient does not know their side, note on top of this for provider to order. Diabetic: ?? [ ?? ] Yes, Need Endo: ? [ x ??] No Immunosuppression Medication: [ ?? ] Cyclosporine/Sandimmune/Gengraf/Neoral [ ?? ] Rapamycin/Sirolimus [ X ??] Prograf/Tacrolimus/FKS/Envarsis [ ??X ] Mycophenolic Acid/Cell Cept Thyroid Medication: ??[ ?? ] Yes ?[ ??X ] No Dermatology: ?? [X ?? ] Yes ?[ ?? ] No Bone Density: (every other year required) [ ?? ] Yes ? [ X ??] No Colonoscopy: [ ?? ] Yes, Pharmacy Script: [ ??X ] No They require the following sedation for procedures: [ ?? ] Yes ?[ ??X ] No Any New Allergies in the last year: [ ?? ] Yes ?[ ?? ] No Blood Thinner/Aspirin: [ ?? ] Yes, Medication Name: [ ??X ] No Reminder, send inbox to Provider if Biopsy is needed. PSA Needed (Male over 50) ? [ ??X ] Yes ?[ ?? ] No Test (Female under 50) ?[ ?? ] Yes ?[ X ??] No ?? Need Preventative Medicine/Mammo: ?[ ?? ] Yes ?[ X ??] No Patient need CMV Testing: ?? [ ?? ] Yes ?[ X ??] No Any other items addressed/Any Hospitalizations in last year: ?NA (copy and paste and put on top) documented in this encounter Plan of Treatment Scheduled Orders Name Type Priority Associated Diagnoses Order S chedule Short renal clearance: Procedures Routine Transplant Renal ( [facility]) Expected: 05/12/2019 Iothalamate (Renal (Approxim ate), Studies Unit) Expires: 09/22 Scheduled Referrals Name Type Priority Associated Order Schedule Diagnoses Transplant Kidney / Outpatient Referral Routine Transplant Francisco al Expected: pancreas office visit ([facility]) 2018 (clinic) - (Approximate), Dermatology Expires: 09/22/2019 documented as of this encounter Results Bacterial Culture, Aerobic + Susc, Urine (05/12/2019 12:09 PM CDT) 79 Group Method Time Signature Urine Culture No growth 05/13/2019 after 1 day 8:23 AM CDT of incubation. Specimen Anatomical Collection Method Collection Time Receive d Time (Source) Location / / Volume Laterality Urine (Urine, 05/12/2019 12:09 05/12/2019 Midstream) PM CDT 12:55 PM CDT Comment: Specimen Source Site: Urine Rah Soliz M.D. LAB MICROBIOLOGY - GENERAL O RDERABLES Performing Organization Address City/State/ZIP Code Phon e Number [facility] ER [facility]ATORIES - [address] [place] [address] [facility] (ABNORMAL) Urinalysis with Microscopic: Urine, Clean Catch (05/12/2019 12:09 PM CDT) 79 Group Method Time Signature Source Midstream 05/12/2019 12:09 PM CDT Appearance Normal Normal 05/12/2019 12:31 PM CDT Osmolality, U 244 150 - 1150 05/12/2019 mOsm/kg 1:07 PM CDT pH, U 5.7 4.5 - 8.0 05/12/2019 1:07 PM CDT Comment: ----ADDITIONAL INFORMATION---- This test was developed and its performa nce characteristics determined by [facility] in a manner co nsistent with CLIA requirements. This test has not bee n cleared or approved by the U.S. Food and Drug Admin istration. Glucose 80 (H) 0 - 15 mg/dL 05/12/2019 12:31 PM CDT Protein, U 4 <26 mg/dL 05/12/2019 12:31 PM CDT Comment: ----ADDITIONAL INFORMATION---- On 03/20/2017 the total protein assay me thod changed resulting in approximately a 15% increase in prote in values. Protein/Osmolality 0.16 <0.42 Ratio 05/12/2019 1:07 PM CDT Comment: ----ADDITIONAL INFORMATION---- On 03/20/2017 the total protein assay me thod changed resulting in approximately a 15% increase in prote in values. Predicted 24 Hr Protein 168 mg/24 h 05/12/2019 1:07 PM CDT Predicted Range 53-530 mg/24 h 05/12/2019 1:07 PM CDT Hemoglobin, QL Negative Negative 05/12/2019 1:07 PM CDT Specimen Anatomical Collection Method Collection Time Receive d Time (Source) Location / / Volume Laterality Urine (Urine, 05/12/2019 12:09 05/12/2019 Clean Catch) PM CDT 12:09 PM CDT Rah Soliz M.D. LAB URINE ORDERABLES Performing Organization Address City/State/ZIP Code Phon e Number [facility] ER [facility]ATORIES - [address] [place], [place] [address] [facility] DX Chest AP or PA and Lateral [...] the left base. Otherwise negative chest. Rah Soliz M.D. IMG DIAGNOSTIC IMAGING PROCE [facility] ECG 12 Lead (05/12/2019 10:02 AM CDT) P athologist Signature Ventricular Rate 65 BPM MUSE ECG/Min PA Interval 142 ms MUSE QRSD Interval 100 ms MUSE QT Interval 402 ms MUSE QTC Interval 418 ms MUSE P [place] 33 degrees MUSE R [place] 69 degrees MUSE T Wave [place] 42 degrees MUSE Specimen Anatomical Collection Method Collection Time Receive d Time (Source) Location / / Volume Laterality 05/12/2019 10:02 05/12/2019 AM CDT 10:04 AM CDT Impressions MUSE - 05/12/2019 10:05 AM CDT Normal sinus rhythm Nonspecific ST abnormality When compared with ECG of 31-MAY-2018 09 :34, No significant change was found Reviewed by CHAVO Ayala Narrative This result has an attachment that is no t available. Procedure Note Chuck Hearn Jr., M.D. - 05/12/2019For matting of this note might be different from the original. IMPRESSION: Normal sinus rhythm Nonspecific ST abnormality When compared with ECG of 31-MAY-2018 09 :34, No significant change was found Reviewed by CHAVO Ayala Rah Soliz M.D. ECG ORDERABLES Performing Organization Address City/State/ZIP Code Phon e Number MUSE MUSE NA PSA (Prostate-Specific Antigen) Screen (05/06/2019 8:01 AM CDT) athologist [facility] Prostate-Specif 2.6 <=3.5 ng/mL 05/06/2019 ic Ag 9:25 AM CDT Comment: ----ADDITIONAL INFORMATION---- The testing [...] Location / / Volume Laterality Blood (Blood, 05/06/2019 8:01 AM 05/06/20 8:10 Venous) CDT AM CDT Rah Soliz M.D. LAB BLOOD ADD-ON Performing Organization Address City/State/ZIP Code Phon e Number [facility] ER [facility] - [address] [place], [place] [address] [facility] Tacrolimus, B (05/06/2019 8:01 AM CDT) P athologist Signature Tacrolimus, B 8.4 5.0-15.0 05/06/2019 (Trough) 1:44 PM CDT ng/mL Comment: ----ADDITIONAL INFORMATION---- Target steady-state trough concentration s vary depending on the type of transplant, concomitant immunosuppressio n, clinical/institutional protocols, and time post-transplant. Results should be interpreted in conjunction with this clinical information and any physic al signs/symptoms of rejection/toxicity. Testing performed by Liquid Chromatograp hy-Tandem Mass Spectrometry (LC-MS/MS). This test was developed and its performa nce characteristics determined by [facility] in a manner consistent with CLIA requirements. This test has not been cleared or approved by the U.[place]. Margarita d and Drug Administration. Specimen Anatomical Collection Method Collection Time Receive d Time (Source) Location / / Volume Laterality Blood (Blood, 05/06/2019 8:01 AM 05/06/20 19 Venous) CDT 10:04 AM CDT Rah Soliz M.D. LAB BLOOD NON ADD-ON Performing Organization Address City/State/ZIP Code Phon e Number [facility] [address] [place], [place] [address] [facility] (ABNORMAL) Mycophenolic Acid (05/06/2019 8:01 AM CDT) Analysis Performed At Patho logist Time Signature Mycophenolic Acid 1.8 1.0 - 3.5 05/06/2019 mcg/mL 1:53 PM CDT MPA Glucuronide 32 (L) 35 - 100 05/06/2019 mcg/mL 1:53 PM CDT Comment: ----ADDITIONAL INFORMATION---- Target steady-state trough concentration s vary depending on the type of transplant, concomitant immunosuppressio n, clinical/institutional protocols, and time post-transplant. Results should be interpreted in conjunction with this clinical information and any physic al signs/symptoms of rejection/toxicity. Testing performed by Liquid Chromatograp hy-Tandem Mass Spectrometry (LC-MS/MS). This test was developed and its performa nce characteristics determined by [facility] in a manner consistent with CLIA requirements. This test has not been cleared or approved by the U.S. Margarita d and Drug Administration. Specimen Anatomical Collection Method Collection Time Receive d Time (Source) Location / / Volume Laterality Blood (Blood, 05/06/2019 8:01 AM 05/06/20 Venous) CDT 10:08 AM CDT Authorizing Provider Result Hoang Soliz M.D. LAB BLOOD NON ADD-ON Performing Organization Address City/[facility]/ZIP Code Phon e Number [facility] [address] [place] [address] [facility] BK Virus PCR, Quant, Plasma (05/06/2019 8:01 AM CDT) [facility] Method Time Signature BK Virus PCR, None None 05/06/2019 Quant, P detected detected 6:42 PM CDT Comment: ----ADDITIONAL INFORMATION---- This test was developed and its performa nce characteristics determined by [facility] in a manner consistent with CLIA requirements. This test has not been cleared or approved by the U.[place]. Mag[place] d and Drug Administration. Specimen Anatomical Collection Method Collection Time Receive d Time (Source) Location / / Volume Laterality Blood (Blood, 05/06/2019 8:01 AM 05/06/20 9:36 Venous) CDT AM CDT Authorizing Provider Result Hoang Soliz M.D. LAB MICROBIOLOGY - BLOOD ORD ERABLES Performing Organization Address City/[facility]/ZIP Code Phon e Number [facility] - [address] (ABNORMAL) PTH (Parathyroid Hormone) (05/06/2019 8:01 AM CDT) athologist Signature Parathyroid 92 (H) 15 - 65 05/06/2019 Hormone (PTH), S pg/mL 9:25 AM CDT Specimen Anatomical Collection Method Collection Time Receive d Time (Source) Location / / Volume Laterality Blood (Blood, 05/06/2019 8:01 AM 05/06/20 8:10 Venous) CDT AM CDT Authorizing Provider Result Hoang Soliz M.D. LAB BLOOD ADD-ON Performing Organization Address City/[facility]/ZIP Code Phon e Number [facility] - [address] [place] [address] [facility] 25-Hydroxyvitamin D2 and D3 (05/06/2019 8:01 AM CDT) athologist Signature 25-Hydroxy D2 <4.0 ng/mL 05/07/2019 10:42 AM CDT 25-Hydroxy D3 40 ng/mL 05/07/2019 10:42 AM CDT 25-Hydroxy D 40 ng/mL 05/07/2019 Total 10:42 AM CDT Comment: ----REFERENCE VALUE---- 25-HYDROXY D TOTAL (D2+D3) Optimum level s in the healthy population are 20-50, patients with bone disease may benefit from higher levels within this r cris. ----ADDITIONAL INFORMATION---- This test was developed and its performa nce characteristics determined by [facility] in a manner consistent with CLIA requirements. This test has not been cleared or approved by the U.[place]. Margarita d and Drug Administration. Specimen Anatomical Collection Method Collection Time Receive d Time (Source) Location / / Volume Laterality Blood (Blood, 05/06/2019 8:01 AM 05/06/20 19 Venous) CDT 10:38 AM CDT Rah Soliz M.D. LAB BLOOD ADD-ON Performing Organization Address City/State/ZIP Code Phon e Number [facility] [address] [place], [place] [address] HLA Class II SAB Antibody Screen (05/06/2019 8:01 AM CDT) [facility] Method Time Signature Class II SAB Negative Not Applicable 05/07/2019 Overall 9:24 AM CDT Result Class II SAB 0 05/07/2019 cPRA 9:24 AM CDT Comment: ----ADDITIONAL INFORMATION---- This PRA is a [facility] calculated PRA. PRA is based on the antigen frequency of the Tissue Typing patient a nd donor population. ??PRA reflects all antibodie s with a normalized value (MFI) above 300. SAB DRB1 Specificity NONE 05/07/2019 9:24 AM CDT SAB [id number] Specificity NONE 05/07/2019 9:24 A M CDT SAB DQB1 Specificity NONE 05/07/2019 9:24 AM CDT SAB DPB1 Specificity NONE 05/07/2019 9:24 AM CDT Comment: ----ADDITIONAL INFORMATION---- Method: [place] Performing Laboratory CLIA# [id number] Specimen Anatomical Collection Method Collection Time Receive d Time (Source) Location / / Volume Laterality Blood (Blood, 05/06/2019 8:01 AM 05/06/20 19 9:18 Venous) CDT AM CDT Rah Soliz M.D. LAB HLA ORDERABLES Performing Organization Address [facility] Phon e Number [facility]IES - [address] [place] [address] [facility] HLA Class I SAB Antibody Screen (05/06/2019 8:01 AM CDT) Patholo gist Method Time Signature Class I SAB Negative Not Applicable 05/07/2019 Overall 9:12 AM CDT Result Class I SAB 0 05/07/2019 cPRA 9:12 AM CDT Comment: ----ADDITIONAL INFORMATION---- This PRA is a [facility] ue Typing Laboratory calculated PRA. PRA is based on the antigen frequency of the Tissue Typing patient a nd donor population. ??PRA reflects all antibodie s with a normalized value (MFI) above 300. SAB A Specificity NONE 05/07/2019 9:12 AM CDT SAB B Specificity NONE 05/07/2019 9:12 AM CDT SAB C Specificity NONE 05/07/2019 9:12 AM CDT Comment: ----ADDITIONAL INFORMATION---- Method: [facility] Performing Laboratory CLIA# [id number] Specimen Anatomical Collection Method Collection Time Receive d Time (Source) Location / / Volume Laterality Blood (Blood, 05/06/2019 8:01 AM 05/06/20 19 9:18 Venous) CDT AM CDT Rah Soliz M.D. LAB HLA ORDERABLES Performing Organization Address [facility] Phon e Number [facility]IES - [address] [place] [address] [facility] Jarvis/Kid 5cc Storage, B (05/06/2019 8:01 AM CDT) Analysis Performed At Patho logist Time Signature Storage, Red Collected DEFAULT 05/06/2019 8:10 AM CDT Storage, ACD Collected DEFAULT 05/06/2019 8:12 AM CDT Specimen Anatomical Collection Method Collection Time Receive d Time (Source) Location / / Volume Laterality Blood (Blood, 05/06/2019 8:01 AM 05/06/20 19 8:10 Venous) CDT AM CDT Narrative [facility] - 05/06/2019 8:12 AM CDT Specimen Information: Specimen ID: [id number] Specimen Type: Blood Specimen Collection Start Date: 05/06/20 ??8:01 AM Specimen Received Date: 05/06/2019 ??8:1 0 AM Specimen ID: [id number] Specimen Collection Start Date: 05/06/20 ??8:01 AM Specimen Received Date: 05/06/2019 ??8:1 2 AM Rah Soliz M.D. LAB BLOOD ADD-ON Performing Organization Address City/[facility]/ZIP Code Phon e Number [facility] - [address] [place] [address] [facility] (ABNORMAL) Hemoglobin A1c (05/06/2019 8:01 AM CDT) P athologist Signature Hemoglobin A1c, 6.0 (H) 4.0 - 5.6 05/06/2019 B % 8:38 AM CDT Comment: Hemoglobin A1c values of 5.7-6.4 percent indicate an increased risk for developing diabetes m ellitus. In diabetic patients, HbA1c goals should be discussed with healthcare provider. Specimen Anatomical Collection Method Collection Time Receive d Time (Source) Location / / Volume Laterality Blood (Blood, 05/06/2019 8:01 AM 05/06/20 19 8:10 Venous) CDT AM CDT Rah Soliz M.D. LAB BLOOD ADD-ON Performing Organization Address [facility]/ZIP Code Phon e Number [facility] - [address] [place] [address] [facility] Troponin T, 5th Generation (05/06/2019 8:01 AM CDT) P athologist Signature Troponin T, 5th 11 <=15 ng/L 05/06/2019 gen 8:54 AM CDT Specimen Anatomical Collection Method Collection Time Receive d Time (Source) Location / / Volume Laterality Blood (Blood, 05/06/2019 8:01 AM 05/06/20 19 8:12 Venous) CDT AM CDT Rah Soliz M.D. LAB BLOOD ADD-ON Performing Organization Address City/[facility]/ZIP Code Phon e Number [facility] - [address] [place] [address] [facility] (ABNORMAL) Lipid Panel (05/06/2019 8:01 AM CDT) athologist Signature Cholesterol, 175 mg/dL 05/06/2019 Total 9:25 AM CDT Comment: ----REFERENCE VALUE---- Desirable: < 200 Borderline high: 200 - 239 High: > or = 240 Triglycerides 151 (H) mg/dL 05/06/2019 9:25 AM CDT Comment: ----REFERENCE VALUE---- Normal: <150 Borderline high: 150-199 High: 200-499 Very high: > or =500 Cholesterol, HDL, S 34 (L) >=40 mg/dL 05/06/2019 9:25 AM CDT Calculated LDL 111 mg/dL 05/06/2019 9:25 AM CDT Comment: ----REFERENCE VALUE---- Desirable: <100 Above Desirable: 100-129 Borderline high: 130-159 High: 160-189 Very high: > or =190 Cholesterol, Non-HDL, Calculated 141 mg/dL 019 9:25 AM CDT Comment: ----REFERENCE VALUE---- Desirable: <130 Above Desirable: 130-159 Borderline high: 160-189 High: 190-219 Very high: > or =220 Specimen Anatomical Collection Method Collection Time Receive d Time (Source) Location / / Volume Laterality Blood (Blood, 05/06/2019 8:01 AM 05/06/20 19 8:10 Venous) CDT AM CDT Rah Soliz M.D. LAB BLOOD ADD-ON Performing Organization Address City/[facility]/ZIP Code Phon e Number [facility] - [address] [place], [place] [address] [facility] Magnesium (05/06/2019 8:01 AM CDT) athologist Signature Magnesium, S 2.1 1.7 - 2.3 05/06/2019 mg/dL 9:25 AM CDT Specimen Anatomical Collection Method Collection Time Receive d Time (Source) Location / / Volume Laterality Blood (Blood, 05/06/2019 8:01 AM 05/06/20 19 8:10 Venous) CDT AM CDT Rah Soliz M.D. LAB BLOOD ADD-ON Performing Organization Address City/[facility] Phon e Number [facility] - [address] [place], [place] [address] [facility] Phosphorus Inorganic (05/06/2019 8:01 AM CDT) P athologist Signature Phosphorus 3.0 2.5 - 4.5 05/06/2019 (Inorganic), S mg/dL 9:25 AM CDT Specimen Anatomical Collection Method Collection Time Receive d Time (Source) Location / / Volume Laterality Blood (Blood, 05/06/2019 8:01 AM 05/06/20 19 8:10 Venous) CDT AM CDT Rah Soliz M.D. LAB BLOOD ADD-ON Performing Organization Address City/State/ZIP Code Phon e Number [facility] - [address] [place], [place] [address] [facility] (ABNORMAL) CMP (Comprehensive Metabolic Panel) (05/06/2019 8:01 AM CDT) Analysis Performed At Patho logist Time Signature Potassium, S 4.7 3.6 - 5.2 05/06/2019 mmol/L 9:25 AM CDT Sodium, S 139 135 - 145 05/06/2019 mmol/L 9:25 AM CDT Chloride, S 102 98 - 107 05/06/2019 mmol/L 9:25 AM CDT Bicarbonate, S 23 22 - 29 05/06/2019 mmol/L 9:25 AM CDT Anion Gap 14 7 - 15 05/06/2019 9:25 AM CDT BUN (Blood Urea 22 8 - 24 05/06/2019 Nitrogen), S mg/dL 9:25 AM CDT Creatinine 1.70 (H) 0.74 - 05/06/2019 1.35 mg/dL 9:25 AM CDT eGFR-Non 45 (L) >=60 05/06/2019 Black/ mL/min/BSA 9:25 AM CDT [place] Comment: ----ADDITIONAL INFORMATION---- Estimated GFR calculated using the 2009 CKD_EPI creatinine equation. eGFR-Black/ 52 (L) >=60 mL/min/BSA 2018 9:25 AM CDT Comment: ----ADDITIONAL INFORMATION---- Estimated GFR calculated using the 2009 CKD_EPI creatinine equation. Calcium, Total, S 9.9 8.6 - 10.0 mg/dL 05/06/2019 9:25 AM CDT Glucose, S 131 70 - 140 mg/dL 05/06/2019 9:25 AM CDT Protein, Total, S 7.1 6.3 - 7.9 g/dL 05/06/2019 9:25 A M CDT Albumin, S 4.9 3.5 - 5.0 g/dL 05/06/2019 9:25 AM CDT Aspartate Aminotransferase 21 8 - 48 U/L 05/06/2019 9 :25 AM CDT (AST), S Alkaline Phosphatase, S 30 (L) 40 - 129 U/L 05/06/2019 9: 25 AM CDT Alanine Aminotransferase (ALT), 28 7 - 55 U/L 019 9:25 AM CDT S Bilirubin, Total, S 0.8 <=1.2 mg/dL 05/06/2019 9:25 AM CDT Specimen Anatomical Collection Method Collection Time Receive d Time (Source) Location / / Volume Laterality Blood (Blood, 05/06/2019 8:01 AM 05/06/20 19 8:10 Venous) CDT AM CDT Rah Soliz M.D. LAB BLOOD ADD-ON Performing Organization Address City/[facility] Phon e Number [facility] - [address] APTT (Activated Partial Thromboplastin Time) (05/06/2019 8:01 AM CDT) P athologist Signature Activated 26 25 - 37 sec 05/06/2019 Partial 8:34 AM CDT Thrombopl Time, P Specimen Anatomical Collection Method Collection Time Receive d Time (Source) Location / / Volume Laterality Blood (Blood, 05/06/2019 8:01 AM 05/06/20 19 8:10 Venous) CDT AM CDT Rah Soliz M.D. LAB BLOOD ADD-ON Performing Organization Address City/[facility] Phon e Number [facility] - [address] PT (Prothrombin Time) with INR (05/06/2019 8:01 AM CDT) P athologist Signature Prothrombin 11.9 9.4 - 12.5 05/06/2019 Time, P sec 8:34 AM CDT INR 1.1 0.9 - 1.1 05/06/2019 8:34 AM CDT Comment: ----ADDITIONAL INFORMATION---- Standard intensity warfarin therapeutic range: 2.0 to 3.0 ?? High intensity warfarin therapeutic rang e: 2.5 to 3.5 Specimen Anatomical Collection Method Collection Time Receive d Time (Source) Location / / Volume Laterality Blood (Blood, 05/06/2019 8:01 AM 05/06/20 19 8:10 Venous) CDT AM CDT Rah Soliz M.D. LAB BLOOD ADD-ON Performing Organization Address City/State/ZIP Code Phon e Number [facility] - [address] [place], [place] [address] [facility] CBC with Differential (05/06/2019 8:01 AM CDT) athologist Signature Hemoglobin 15.4 13.2 - 05/06/2019 16.6 g/dL 8:26 AM CDT Hematocrit 45.1 38.3 - 05/06/2019 48.6 % 8:26 AM CDT Erythrocytes 4.63 4.35 - 05/06/2019 5.65 8:26 AM CDT x10(12)/L MCV 97.4 78.2 - 05/06/2019 97.9 fL 8:26 AM CDT RBC Distrib Width 12.6 11.8 - 05/06/2019 14.5 % 8:26 AM CDT Platelet Count 154 135 - 317 05/06/2019 x10(9)/L 8:26 AM CDT Leukocytes 3.9 3.4 - 9.6 05/06/2019 x10(9)/L 8:26 AM CDT Neutrophils 2.24 1.56 - 05/06/2019 6.45 8:26 AM CDT x10(9)/L Lymphocytes 1.23 0.95 - 05/06/2019 3.07 8:26 AM CDT x10(9)/L Monocytes 0.41 0.26 - 05/06/2019 0.81 8:26 AM CDT x10(9)/L Eosinophils 0.04 0.03 - 05/06/2019 0.48 8:26 AM CDT x10(9)/L Basophils <0.03 0.01 - 05/06/2019 0.08 8:26 AM CDT x10(9)/L Specimen Anatomical Collection Method Collection Time Receive d Time (Source) Location / / Volume Laterality Blood (Blood, 05/06/2019 8:01 AM 05/06/20 19 8:10 Venous) CDT AM CDT Rah Soliz M.D. LAB BLOOD ADD-ON Performing Organization Address [facility] Phon e Number [facility] - [address] [id number] [facility] Microalbuminuria, 24 Hour, Urine (05/06/2019 8:00 AM CDT) P athologist Signature 24 Hour <21 <30 mg/24 h 05/06/2019 Excretion 12:13 PM CDT Comment: ----ADDITIONAL INFORMATION---- This test has been modified from the man ufacturer's instructions. Its performance characteri stics were determined by [facility] in a manner co nsistent with [...] M.D. 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
--- OUTSIDE RECORDS SUMMARY | 2022-08-23 10:05 | XMS_ITS | Encounter Summary ---
:1965 Author Organization [facility] Address [address] [place] [address] Care Team Providers Name Role Phone Unavailable Primary Care Provider Unavailable Reason for Referral Outpatient (Routine) - Closed Specialty Diagnoses / Procedures Referred By Contact Refer red To Contact Transplant [facility] [address] [place] [address] Referral ID Status Reason Start Date Expiration Date Visits Requ ested Visits Authorized [id number] Closed 03/15/2018 03/15/2019 1 1 Reason for Visit Reason Onset Date Comments Pre-visit Testing Orders 03/15/2018 Encounter Details Date Type Department Care Team Description 03/15/2018 Clinical Joey Gordillo Prescheduling, Pre- visit Testing Communication Center for Provider Orders Transplantation and Clinical Regeneration in [place], [place] [address] [place] [id number] Social History Tobacco Use Types Packs/Day Years Used Date Smoking Tobacco: Never Alcohol Habits Answer Date Recorded [...] How often do you attend denominational or oriental orthodox Never 05/12/2021 services? Do [...] a [place] [facility] ([facility] 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
--- OUTSIDE RECORDS SUMMARY | 2022-08-23 10:05 | XMS_ITS | Encounter Summary ---
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 How many drinks containing [...] How often do you attend [employer] or orthodoxy Never 05/12/2021 services? Do you [...]
--- OUTSIDE RECORDS SUMMARY | 2022-08-23 10:05 | XMS_ITS | Encounter Summary ---
:1965 Author Organization [facility] Address [address] [place] [address] Care Team Providers Name Role Phone Unavailable Primary Care Provider Unavailable Reason for Referral Outpatient (Routine) - Closed Specialty Diagnoses / Procedures Referred By Contact Refer red To Contact Transplant Kidney Diagnoses Transplant Renal (HCC) Rah Soliz M.D. [facility] Pancreas Procedures ECG 12 Lead CA EKG 12 LEAD TRACE ONLY CA EKG I&R ONLY [address] [place] [address] Referral ID Status Reason Start Date Expiration Date Visits Requ ested Visits Authorized [id number] Closed 04/26/2018 04/26/2019 1 1 utpatient (Routine) - Closed Specialty Diagnoses / Procedures Referred By Contact Refer red To Contact Radiology Diagnoses Transplant Renal (HCC) Rah Soliz M.D. [facility] Procedures BMD Bone Density Spine Hips BMD BONE DENSITY SPINE HIPS CA DEXA BONE DENSITY AXIAL FOUNDATION HC XR DEXA AXIAL SKLTN [address] [place] [address] Referral ID Status Reason Start Date Expiration Date Visits Requ ested Visits Authorized [id number] Closed 04/26/2018 04/26/2019 1 1 Encounter Details Date Type Department Care Team Description 04/25/2018 Clinical Communication Division of Nephrology Loly Soliz, and Hypertension in [place], [place] [address] [place] [phone] Social History Tobacco Use Types Packs/Day Years Used Date Smoking Tobacco: Never Alcohol Habits Answer Date Recorded How often do you have a drink containing 4 or more times a w [place] 05/12/2021 alcohol? How many drinks containing alcohol [...] How often do you attend christian or cheondoism Never 05/12/2021 services? Do you [...] slept in a long term (including now)? Sex Assigned at Date Recorded Male 05/27/2018 8:52 AM CDT documented as of this encounter Miscellaneous Notes Telephone Encounter - Rah Soliz M.D. - 04/26/2018 10:07 AM CDT I think I signed those orders? Telephone Encounter - Snow Ba - 04/25/2018 9:07 AM CDT 7th year biopsy needed ?? Patient is scheduled for an annual visit on: [Date] ?sept ?Annual Year: ? 7yr ??Provider: richi Preferred follow up: [ x ??] Patient Portal Message [ ?? ] Telephone Call Phone Number: [ ?? ] Mail PAG Patient: ??[ x ??] Driving or [ ?? ] Flying for Urine Kit. Is patient a Dual Organ Patient? [ ?? ] Yes ?[ ??x ] No ?They will be seeing: ??[Provider Name] Diabetic: [ ?? ] Yes, Need Endo: ? [ x ??] No Immunosuppression Medication: [ ?? ] Cyclosporine/Sandimmune/Gengraf/Neoral [ ?? ] Rapamycin/Sirolimus [ ??x ] Prograf/Tacrolimus/FKS [ ?? x] Mycophenolic Acid/Cell Cept Thyroid Medication: [ ?? ] Yes ?[ ?? x] No Dermatology: [ ??x ] Yes ?[ ?? ] No Bone Density: (every other year required) [ ?? x] Yes ? [ ?? ] No Colonoscopy: [ ?? ] Yes, Pharmacy Script: [ ??x ] No They require the following sedation for procedures: [ ?? ] Yes ?[ ?? ] No Any New Allergies in the last year: [ ?? ] Yes ?[ ??x ] No Blood Thinner/Aspirin:baby aspirin [ ??x ] Yes, Medication Name: [ ?? ] No Reminder, send inbox to Provider if Biopsy is needed. PSA Needed (Male over 50) ? [ ??x ] Yes ?[ ?? ] No Test (Female under 50) ?[ ?? ] Yes ?[ ??x ] No ?? Need Preventative Medicine/Mammo: ?[ ?? ] Yes ?[ ??x ] No Patient need CMV Testing: ?? [ ?? ] Yes ?[ ??x ] No Any other items addressed/Any Hospitalizations in last year: NA documented in this encounter Plan of Treatment Scheduled Orders Name Type Priority Associated Diagnoses Order S chedule Short renal clearance: Procedures Routine Transplant Renal ( HCC) Expected: 05/31/2018 Iothalamate (Renal (Approxim ate), Studies Unit) Expires: 06/03 documented as of this encounter Results BMD Bone Density Spine Hips (05/31/2018 10:51 AM CDT) Anatomical Region Laterality Modality Hip, Lumbar Spine, Nuclear Medicine RST LOS N/A Radiographic Imaging Specimen (Source) Anatomical Collection Method Collection Time Re ceived Time Location / / Volume Laterality 05/31/2018 11:36 AM CDT Impressions 05/31/2018 11:37 AM CDT IMPRESSION: Osteoporosis Narrative 05/31/2018 11:37 AM CDT EXAM: ??BMD BONE DENSITY SPINE HIPS COMPARISON: Serial Comparisons Left Total Hip results: ?06/08/2011 ?BMD: ??0.729 g/cm( sq), T Score: -2.2 ?05/21/2012 ?BMD: ??0.755 g/cm( sq), T Score: -2.0 ?05/08/2014 ?BMD: ??0.782 g/cm( sq), T Score: -1.8 ?05/23/2016 ?BMD: ??0.798 g/cm( sq), T Score: -1.7 ?05/31/2018 ?BMD: ??0.760 g/cm( sq), T Score: -2.0 ?Change vs. Previous (difference): ? -0.038 g/cm(sq) ?Change vs. Previous (%): ??-4.8% ?The least significant change in BM D for the Total Hip ?is 0.036 g/cm(sq) ?The absolute BMD change from previ ous, ??0.038g/cm(sq), is ?greater than the least significant change. ?The absolute BMD change from basel ine, ??0.031g/cm(sq), is ?less than the least significant ch cris. Right Total Hip results: ?06/08/2011 ?BMD: ??0.764 g/cm( sq), T Score: -1.9 ?05/21/2012 ?BMD: ??0.779 g/cm( sq), T Score: -1.8 ?05/08/2014 ?BMD: ??0.821 g/cm( sq), T Score: -1.5 ?05/23/2016 ?BMD: ??0.838 g/cm( sq), T Score: -1.3 ?05/31/2018 ?BMD: ??0.779 g/cm( sq), T Score: -1.8 ?Change vs. Previous (difference): ? -0.059 g/cm(sq) ?Change vs. Previous (%): ??-7.0% ?The least significant change in BM D for the Total Hip ?is 0.036 g/cm(sq) ?The absolute BMD change from previ ous, ??0.059g/cm(sq), is ?greater than the least significant change. ?The absolute BMD change from basel ine, ??0.015g/cm(sq), is ?less than the least significant ch cris. Combined Total Hip results: ?06/08/2011 ?BMD: ??0.747 g/cm( sq), T Score: -2.1 ?05/21/2012 ?BMD: ??0.767 g/cm( sq), T Score: -1.9 ?05/08/2014 ?BMD: ??0.802 g/cm( sq), T Score: -1.7 ?05/23/2016 ?BMD: ??0.818 g/cm( sq), T Score: -1.5 ?05/31/2018 ?BMD: ??0.770 g/cm( sq), T Score: -1.9 ?Change vs. Previous (difference): ? -0.049 g/cm(sq) ?Change vs. Previous (%): ??-5.9% ?The least significant change in BM D for the Total Hip ?is 0.036 g/cm(sq) ?The absolute BMD change from previ ous, ??0.049g/cm(sq), is ?greater than the least significant change. ?The absolute BMD change from basel ine, ??0.023g/cm(sq), is ?less than the least significant ch cris. Spine results: ?06/08/2011 ?BMD: ??0.925 g/cm( sq), T Score: -2.1 ?05/21/2012 ?BMD: ??1.002 g/cm( sq), T Score: -1.5 ?05/08/2014 ?BMD: ??1.062 g/cm( sq), T Score: -1.0 ?05/23/2016 ?BMD: ??1.036 g/cm( sq), T Score: -1.2 ?05/31/2018 ?BMD: ??0.972 g/cm( sq), T Score: -1.7 ?Change vs. Previous (difference): ? -0.064 g/cm(sq) ?Change vs. Previous (%): ??-6.2% ?The least significant change in BM D for the Spine is 0.041 g/cm(sq) ?The absolute BMD change from previ ous, ??0.064g/cm(sq), is ?greater than the least significant change. ?The absolute BMD change from basel ine, ??0.047g/cm(sq), is ?greater than the least significant change. FINDINGS: Left Hip [single scan]: ?Femur Neck: BMD = ??0.695 g/cm (sq ) ?T-score = -2.5 ?Z-score = - 2.2 ?Total Hip: BMD = ??0.760 g/cm (sq) ?T-score = -2.0 ?Z-score = - 2.0 Right Hip [single scan]: ?Femur Neck: BMD = ??0.705 g/cm (sq ) ?T-score = -2.4 ?Z-score = - 2.1 ?Total Hip: BMD = ??0.779 g/cm (sq) ?T-score = -1.8 ?Z-score = - 1.9 Lumbar Spine ??[single scan]: ?L1: BMD = 0.890 g/cm (sq), T-score =-2.0, Z-score =-2.1 ?L2: BMD = 0.972 g/cm (sq), T-score =-2.0, Z-score =-2.1 ?L3: BMD = 1.052 g/cm (sq), T-score =-1.3, Z-score =-1.5 ?Total Lumbar Spine: BMD = ??0.972 g/cm (sq) ?T-score = -1.7 ?Z-score = - 1.8 Trabecular Bone Scores: ?L1-L3: TBS = 1.372 Please note: A more comprehensive DXA re port, including images and graphs, is available in [employer]. ?In the absence of other causes of [...] guidelines fo r FRAX calculations. Procedure Note Tucker Rodriguez M.D., Ph.D. - 05/31/20 18 EXAM: BMD BONE DENSITY SPINE HIPS COMPARISON: Serial Comparisons Left Total Hip results: 06/08/2011 BMD: 0.729 g/cm(sq), T Score : -2.2 05/21/2012 BMD: 0.755 g/cm(sq), T Score : -2.0 05/08/2014 BMD: 0.782 g/cm(sq), T Score : -1.8 05/23/2016 BMD: 0.798 g/cm(sq), T Score : -1.7 05/31/2018 BMD: 0.760 g/cm(sq), T Score : -2.0 Change vs. Previous (difference): -0.03 8 g/cm(sq) Change vs. Previous (%): -4.8% The least significant change in BMD for the Total Hip is 0.036 g/cm(sq) The absolute BMD change from previous, 0.038g/cm(sq), is greater than the least significant riggins ge. The absolute BMD change from baseline, 0.031g/cm(sq), is less than the least significant change. Right Total Hip results: 06/08/2011 BMD: 0.764 g/cm(sq), T Score : -1.9 05/21/2012 BMD: 0.779 g/cm(sq), T Score : -1.8 05/08/2014 BMD: 0.821 g/cm(sq), T Score : -1.5 05/23/2016 BMD: 0.838 g/cm(sq), T Score : -1.3 05/31/2018 BMD: 0.779 g/cm(sq), T Score : -1.8 Change vs. Previous (difference): -0.05 9 g/cm(sq) Change vs. Previous (%): -7.0% The least significant change in BMD for the Total Hip is 0.036 g/cm(sq) The absolute BMD change from previous, 0.059g/cm(sq), is greater than the least significant riggins ge. The absolute BMD change from baseline, 0.015g/cm(sq), is less than the least significant change. Combined Total Hip results: 06/08/2011 BMD: 0.747 g/cm(sq), T Score : -2.1 05/21/2012 BMD: 0.767 g/cm(sq), T Score : -1.9 05/08/2014 BMD: 0.802 g/cm(sq), T Score : -1.7 05/23/2016 BMD: 0.818 g/cm(sq), T Score : -1.5 05/31/2018 BMD: 0.770 g/cm(sq), T Score : -1.9 Change vs. Previous (difference): -0.04 9 g/cm(sq) Change vs. Previous (%): -5.9% The least significant change in BMD for the Total Hip is 0.036 g/cm(sq) The absolute BMD change from previous, 0.049g/cm(sq), is greater than the least significant riggins ge. The absolute BMD change from baseline, 0.023g/cm(sq), is less than the least significant change. Spine results: 06/08/2011 BMD: 0.925 g/cm(sq), T Score : -2.1 05/21/2012 BMD: 1.002 g/cm(sq), T Score : -1.5 05/08/2014 BMD: 1.062 g/cm(sq), T Score : -1.0 05/23/2016 BMD: 1.036 g/cm(sq), T Score : -1.2 05/31/2018 BMD: 0.972 g/cm(sq), T Score : -1.7 Change vs. Previous (difference): -0.06 4 g/cm(sq) Change vs. Previous (%): -6.2% The least significant change in BMD for the Spine is 0.041 g/cm(sq) The absolute BMD change from previous, 0.064g/cm(sq), is greater than the least significant riggins ge. The absolute BMD change from baseline, 0.047g/cm(sq), is greater than the least significant riggins ge. FINDINGS: Left Hip [single scan]: Femur Neck: BMD = 0.695 g/cm (sq) T-score = -2.5 Z-score = -2.2 Total Hip: BMD = 0.760 g/cm (sq) T-score = -2.0 Z-score = -2.0 Right Hip [single scan]: Femur Neck: BMD = 0.705 g/cm (sq) T-score = -2.4 Z-score = -2.1 Total Hip: BMD = 0.779 g/cm (sq) T-score = -1.8 Z-score = -1.9 Lumbar Spine [single scan]: L1: BMD = 0.890 g/cm (sq), T-score =-2. 0, Z-score =-2.1 L2: BMD = 0.972 g/cm (sq), T-score =-2. 0, Z-score =-2.1 L3: BMD = 1.052 g/cm (sq), T-score =-1. 3, Z-score =-1.5 Total Lumbar Spine: BMD = 0.972 g/cm (s q) T-score = -1.7 Z-score = -1.8 Trabecular Bone Scores: L1-L3: TBS = 1.372 Please note: A more comprehensive DXA re port, including images and graphs, is available in [employer]. In the absence of other causes of [...] evidence of skeletal fragility in the [facility]. Degenerative changes are present which m ay spuriously elevate the spine BMD measurement. Patient does not meet ISCD guidelines fo r FRAX calculations. IMPRESSION: Osteoporosis Rah LOPEZ DXA PROCEDURES DX Chest AP or PA and Lateral 2 Views (05/31/2018 9:43 AM CDT) Anatomical Region Laterality Modality Chest, Thoracic RST LOS N/A Digital Radiogra phy Specimen (Source) Anatomical Collection Method Collection Time Re ceived Time Location / / Volume Laterality 05/31/2018 9:54 AM CDT Impressions 05/31/2018 10:05 AM CDT IMPRESSION: ??No change compared to 07/17/2017. Negative chest. Narrative 05/31/2018 10:05 AM CDT EXAM: ??DX CHEST AP OR PA AND LATERAL 2 VIEWS Procedure Note Alley Landaverde M.D. - 05/31/2018Format ting of this note might be different from the original. EXAM: DX CHEST AP OR PA AND LATERAL 2 EWS IMPRESSION: No change compared to 2016. Negative chest. Rah LOPEZ DIAGNOSTIC IMAGING PROCE [facility] ECG 12 Lead (05/31/2018 9:34 AM CDT) P athologist Signature Ventricular Rate 59 BPM MUSE ECG/Min CA Interval 144 ms MUSE QRSD Interval 104 ms MUSE QT Interval 418 ms MUSE QTC Interval 413 ms MUSE P [place] 35 degrees MUSE R [place] 66 degrees MUSE T Wave [place] 41 degrees MUSE Specimen Anatomical Collection Method Collection Time Receive d Time (Source) Location / / Volume Laterality 05/31/2018 9:34 AM 8 9:41 CDT AM CDT Impressions MUSE - 05/31/2018 9:41 AM CDT Sinus bradycardia Nonspecific ST abnormality When compared with ECG of 17-JUL-2017 09 :39, No significant change was found Narrative This result has an attachment that is no t available. Rah Soliz M.D. ECG ORDERABLES Performing Organization Address City/State/ZIP Code Phon e Number [facility] Bacterial Culture, Aerobic + Susc, Urine (05/31/2018 8:21 AM CDT) [facility] [place] Method Time Signature Urine Culture No growth 06/01/2018 [facility] after 1 8:10 AM CDT LABORATORIES - [facility] . Specimen Anatomical Collection Method Collection Time Receive d Time (Source) Location / / Volume Laterality Urine (Urine, 05/31/2018 8:21 AM 05/31/20 18 9:01 Midstream) CDT AM CDT Comment: Specimen Source Site: Urine Rah Soliz M.D. LAB MICROBIOLOGY - GENERAL O RDERABLES Performing Organization Address City/State/ZIP Code Phon e Number [facility] - [address] [place], [place] [address] [facility] (ABNORMAL) Urinalysis with Microscopic (05/31/2018 8:20 AM CDT) mobli Method Time Signature Source Midstream 05/31/2018 [facility] 8:20 AM CDT [facility] Appearance Normal Normal 05/31/2018 [facility] 9:00 AM CDT [facility] Osmolality, U 117 (L) 150 - 1150 05/31/2018 [facility] mOsm/kg 9:28 AM CDT [facility] pH, U 6.1 4.5 - 8.0 05/31/2018 [facility] 9:28 AM CDT [facility] Comment: ----ADDITIONAL INFORMATION---- This test was developed and its performa nce characteristics determined by [facility] in a manner co nsistent with CLIA requirements. This test has not bee n cleared or approved by the U.S. Food and Drug Admin istration. Glucose <2 0 - 15 mg/dL 05/31/2018 9:00 AM CDT [facility] Protein, U <4 <26 mg/dL 05/31/2018 9:00 AM CDT [facility] Comment: ----ADDITIONAL INFORMATION---- On 03/20/2017 the total protein assay me thod changed resulting in approximately a 15% increase in prote in values. Protein/Osmolality <0.34 <0.42 Ratio 05/31/2018 9:28 AM [facility] Comment: ----ADDITIONAL INFORMATION---- On 03/20/2017 the total protein assay me thod changed resulting in approximately a 15% increase in prote in values. Predicted 24 Hr <339 mg/24 h 05/31/2018 9:28 AM [facility] Protein T [facility] Predicted Range <1067 mg/24 h 05/31/2018 9:28 AM [facility] Hemoglobin, QL Negative Negative 05/31/2018 9:17 AM [facility] Specimen Anatomical Collection Method Collection Time Receive d Time (Source) Location / / Volume Laterality Urine (Urine, 05/31/2018 8:20 AM 05/31/20 18 8:20 Clean Catch) CDT AM CDT Rah Soliz M.D. LAB URINE ORDERABLES Performing Organization Address City/State/ZIP Code Phon e Number [facility] - [address] [place] [address] [facility] PSA (Prostate-Specific Antigen), Diagnostic (05/31/2018 6:27 AM CDT) P athologist Signature Prostate-Speci 2.7 <=3.5 05/31/2018 [facility] fic Ag ng/mL 7:13 AM [facility] Comment: ----ADDITIONAL INFORMATION---- The testing method is [...] Location / / Volume Laterality Blood (Blood, 05/31/2018 6:27 AM 05/31/20 18 6:32 Venous) CDT AM CDT Rah Soliz M.D. LAB BLOOD ADD-ON Performing Organization Address City/State/ZIP Code Phon e Number [facility] - [address] [place], [place] [address] [facility] (ABNORMAL) Mycophenolic Acid (05/31/2018 6:27 AM CDT) Analysis Performed At Patho logist Time Signature Mycophenolic Acid 2.3 1.0 - 3.5 05/31/2018 [facility] mcg/mL 12:34 PM CDT [facility] Glucuronide 34 (L) 35 - 100 05/31/2018 [facility] mcg/mL 12:34 PM CDT [facility] Comment: ----ADDITIONAL INFORMATION---- Target steady-state trough concentration s vary depending on the type of transplant, concomitant immunosuppressio n, clinical/institutional protocols, and time post-transplant. Results should be interpreted in conjunction with this clinical information and any physic al signs/symptoms of rejection/toxicity. Testing performed by Liquid Chromatograp hy-Tandem Mass Spectrometry (LC-MS/MS). This test was developed and its performa nce characteristics determined by [facility] in a manner consistent with CLIA requirements. This test has not been cleared or approved by the U.S. Margarita d and Drug Administration. Specimen Anatomical Collection Method Collection Time Receive d Time (Source) Location / / Volume Laterality Blood (Blood, 05/31/2018 6:27 AM 05/31/20 18 9:48 Venous) CDT AM CDT Rah Soliz M.D. LAB BLOOD NON ADD-ON Performing Organization Address City/State/ZIP Code Phon e Number [facility] [address] [place] [address] [facility] Tacrolimus, B (05/31/2018 6:27 AM CDT) P athologist Signature Tacrolimus, B 10.1 5.0-15.0 05/31/2018 [facility] (Trough) 12:26 PM CDT [facility] ng/mL [facility] Comment: ----ADDITIONAL INFORMATION---- Target steady-state trough concentration s vary depending on the type of transplant, concomitant immunosuppressio n, clinical/institutional protocols, and time post-transplant. Results should be interpreted in conjunction with this clinical information and any physic al signs/symptoms of rejection/toxicity. Testing performed by Liquid Chromatograp hy-Tandem Mass Spectrometry (LC-MS/MS). This test was developed and its performa nce characteristics determined by [facility] in a manner consistent with CLIA requirements. This test has not been cleared or approved by the U.S. Margarita d and Drug Administration. Specimen Anatomical Collection Method Collection Time Receive d Time (Source) Location / / Volume Laterality Blood (Blood, 05/31/2018 6:27 AM 05/31/20 18 8:29 Venous) CDT AM CDT Rah Soliz M.D. LAB BLOOD NON ADD-ON Performing Organization Address City/[facility] Phon e Number [facility] [address] [place], [place] [address] [facility] BK Virus PCR, Quant, Plasma (05/31/2018 6:27 AM CDT) [facility] Method Time Signature BK Virus PCR, None None 05/31/2018 [facility] Quant, P detected detected 2:43 PM CDT LABORATORIES - [facility] Comment: ----ADDITIONAL INFORMATION---- This test was developed and its performa nce characteristics determined by [facility] in a manner consistent with CLIA requirements. This test has not been cleared or approved by the U.S. Margarita d and Drug Administration. Specimen Anatomical Collection Method Collection Time Receive d Time (Source) Location / / Volume Laterality Blood (Blood, 05/31/2018 6:27 AM 05/31/20 18 7:13 Venous) CDT AM CDT Rah Soliz M.D. LAB MICROBIOLOGY - BLOOD ORD ERABLES Performing Organization Address City/[facility] Phon e Number [facility] - [address] [place] [phone] [facility] (ABNORMAL) PTH (Parathyroid Hormone) (05/31/2018 6:27 AM CDT) [facility] Method Time Signature Parathyroid 78 (H) 15 - 65 05/31/2018 [facility] Hormone (PTH), S pg/mL 7:12 AM CDT LABORATORIE S - [facility] Specimen Anatomical Collection Method Collection Time Receive d Time (Source) Location / / Volume Laterality Blood (Blood, 05/31/2018 6:27 AM 05/31/20 18 6:32 Venous) CDT AM CDT Rah Soliz M.D. LAB BLOOD ADD-ON Performing Organization Address City/State/ZIP Code Phon e Number [facility] - [address] [place] [address] [facility] 25-Hydroxyvitamin D2 and D3 (05/31/2018 6:27 AM CDT) P athologist Signature 25-Hydroxy D2 <4.0 ng/mL 06/01/2018 [facility] 1:48 PM CDT [facility] 25-Hydroxy D3 49 ng/mL 06/01/2018 [facility] 1:48 PM CDT [facility] 25-Hydroxy D 49 ng/mL 06/01/2018 [facility] Total 1:48 PM CDT [facility] Comment: ----REFERENCE VALUE---- 25-HYDROXY D TOTAL (D2+D3) Optimum level s in the healthy population are 20-50, patients with bone disease may benefit from higher levels within this r cris. ----ADDITIONAL INFORMATION---- This test was developed and its performa nce characteristics determined by [facility] in a manner consistent with CLIA requirements. This test has not been cleared or approved by the U.[place]. Margarita d and Drug Administration. Specimen Anatomical Collection Method Collection Time Receive d Time (Source) Location / / Volume Laterality Blood (Blood, 05/31/2018 6:27 AM 05/31/20 18 Venous) CDT 10:35 AM CDT Rah Soliz M.D. LAB BLOOD ADD-ON Performing Organization Address City/[facility] Code Phon e Number [facility] [address] [place] [address] [facility] HLA Class II SAB Antibody Screen (05/31/2018 6:27 AM CDT) Patholo gist Method Time Signature Class II SAB Negative Not Applicable 06/03/2018 [facility] Overall 8:30 AM CDT LABORATORIES - Result [facility] Class II SAB 0 06/03/2018 [facility] cPRA 8:30 AM CDT LABORATORIES - [facility] Comment: ----ADDITIONAL INFORMATION---- This PRA is a [facility] Tiss ue Typing Laboratory calculated PRA. PRA is based on the antigen frequency of the Tissue Typing patient a nd donor population. ??PRA reflects all antibodie s with a normalized value (MFI) above 300. SAB [id number] Specificity NONE 06/03/2018 8:30 AM CDT [facility] S SAB [id number] Specificity NONE 06/03/2018 8:30 A M CDT [facility] S SAB [id number] Specificity NONE 06/03/2018 8:30 AM CDT [facility] S SAB DPB1 Specificity NONE 06/03/2018 8:30 AM CDT [facility] Comment: ----ADDITIONAL INFORMATION---- Method: Luminex Performing Laboratory CLIA# [id number] Specimen Anatomical Collection Method Collection Time Receive d Time (Source) Location / / Volume Laterality Blood (Blood, 05/31/2018 6:27 AM 05/31/20 18 7:30 Venous) CDT AM CDT Rah Soliz M.D. LAB HLA ORDERABLES Performing Organization Address City/State/ZIP Code Phon e Number [facility] - [address] [place], [place] [address] [facility] HLA Class I SAB Antibody Screen (05/31/2018 6:27 AM CDT) [facility] Method Time Signature Class I SAB Negative Not Applicable 06/03/2018 [facility] Overall 8:24 AM CDT LABORATORIES Result [facility] Class I SAB 0 06/03/2018 [facility] cPRA 8:24 AM CDT LABORATORIES [facility] Comment: ----ADDITIONAL INFORMATION---- This PRA is a [facility] ue Typing Laboratory calculated PRA. PRA is based on the antigen frequency of the Tissue Typing patient a nd donor population. ??PRA reflects all antibodie s with a normalized value (MFI) above 300. SAB A Specificity NONE 06/03/2018 8:24 AM CDT [facility] S SAB B Specificity NONE 06/03/2018 8:24 AM CDT [facility] S SAB C Specificity NONE 06/03/2018 8:24 AM CDT [facility] Comment: ----ADDITIONAL INFORMATION---- Method: Luminex Performing Laboratory CLIA# [id number] Specimen Anatomical Collection Method Collection Time Receive d Time (Source) Location / / Volume Laterality Blood (Blood, 05/31/2018 6:27 AM 05/31/20 18 7:30 Venous) CDT AM CDT Rah Soliz M.D. LAB HLA ORDERABLES Performing Organization Address City/[facility]/ZIP Code Phon e Number [facility] - [address] [phone] [facility] Jarvis/Kid 5cc Storage, B (05/31/2018 6:27 AM CDT) Patholo gist Method Time Signature Storage, Red Collected 05/31/2018 [facility] 6:33 AM CDT [facility] Storage, ACD Collected 05/31/2018 [facility] 6:32 AM CDT [facility] Specimen Anatomical Collection Method Collection Time Receive d Time (Source) Location / / Volume Laterality Blood (Blood, 05/31/2018 6:27 AM 05/31/20 18 6:33 Venous) CDT AM CDT [facility]ative [facility] - 05/31/2018 6:33 AM CDT Specimen Information: Specimen ID: [id number] Specimen Type: Blood Specimen Collection Start Date: 8 ??6:27 AM Specimen Received Date: 05/31/2018 ??6:33 AM Specimen ID: [id number] Specimen Collection Start Date: 8 ??6:27 AM Specimen Received Date: 05/31/2018 ??6:32 AM Rah Soliz M.D. LAB BLOOD ADD-ON Performing Organization Address City/[facility]/ZIP Code Phon e Number [facility] - [address] [phone] 05 [facility] Hemoglobin A1c (05/31/2018 6:27 AM CDT) Analysis Performed At Path logist Time Signature Hemoglobin A1c, 5.2 4.0 - 5.6 05/31/2018 [facility] B % 6:54 AM CDT [facility] Specimen Anatomical Collection Method Collection Time Receive d Time (Source) Location / / Volume Laterality Blood (Blood, 05/31/2018 6:27 AM 05/31/20 18 6:32 Venous) CDT AM CDT Rah Soliz M.D. LAB BLOOD ADD-ON Performing Organization Address City/[facility]/ZIP Code Phon e Number [facility] - [address] [phone] 05 [facility] Troponin T (05/31/2018 6:27 AM CDT) athologist Signature Troponin T, 12 <=15 ng/L 05/31/2018 [facility] 5th gen 7:06 AM CDT [facility] Specimen Anatomical Collection Method Collection Time Receive d Time (Source) Location / / Volume Laterality Blood (Blood, 05/31/2018 6:27 AM 05/31/20 18 6:32 Venous) CDT AM CDT Rah Soliz M.D. LAB BLOOD ADD-ON Performing Organization Address City/State/ZIP Code Phon e Number [facility] [address] [place], [place] [address] [facility] (ABNORMAL) Lipid Panel (05/31/2018 6:27 AM CDT) athologist Signature Cholesterol, 149 mg/dL 05/31/2018 [facility] Total 7:09 AM T [facility] Comment: ----REFERENCE VALUE---- Desirable: < 200 Borderline high: 200 - 239 High: > or = 240 Triglycerides 150 (H) mg/dL 05/31/2018 7:09 AM T [facility] S Comment: ----REFERENCE VALUE---- Normal: <150 Borderline high: 150-199 High: 200-499 Very high: > or =500 Cholesterol, HDL, S 35 (L) >=40 mg/dL 05/31/2018 7:09 AM [facility] Calculated LDL 84 mg/dL 05/31/2018 7:09 AM [facility] S Comment: ----REFERENCE VALUE---- Desirable: <100 Above Desirable: 100-129 Borderline high: 130-159 High: 160-189 Very high: > or =190 Cholesterol, Non-HDL, 114 mg/dL 05/31/2018 7:0 9 AM CDT [facility] Comment: ----REFERENCE VALUE---- Desirable: <130 Above Desirable: 130-159 Borderline high: 160-189 High: 190-219 Very high: > or =220 Specimen Anatomical Collection Method Collection Time Receive d Time (Source) Location / / Volume Laterality Blood (Blood, 05/31/2018 6:27 AM 05/31/20 18 6:32 Venous) CDT AM CDT Rah Soliz M.D. LAB BLOOD ADD-ON Performing Organization Address City/[facility]/ZIP Code Phon e Number [facility] [address] [phone] [facility] Magnesium (05/31/2018 6:27 AM CDT) P athologist Signature Magnesium, S 2.1 1.7 - 2.3 05/31/2018 [facility] mg/dL 7:09 AM CDT LABORATORIES - [facility] Specimen Anatomical Collection Method Collection Time Receive d Time (Source) Location / / Volume Laterality Blood (Blood, 05/31/2018 6:27 AM 05/31/20 18 6:32 Venous) CDT AM CDT Rah Soliz M.D. LAB BLOOD ADD-ON Performing Organization Address City/[facility]/ZIP [facility] Phon e Number [facility] [address] [phone] [facility] Phosphorus Inorganic (05/31/2018 6:27 AM CDT) Analysis Performed At Patho logist Time Signature Phosphorus 3.1 2.5 - 4.5 05/31/2018 [facility] (Inorganic), S mg/dL 7:09 AM CDT [facility]ATORIES - [facility] Specimen Anatomical Collection Method Collection Time Receive d Time (Source) Location / / Volume Laterality Blood (Blood, 05/31/2018 6:27 AM 05/31/20 18 6:32 Venous) CDT AM CDT Rah Soliz M.D. LAB BLOOD ADD-ON Performing Organization Address City/[facility] Code Phon e Number [facility] - [address] [phone] [facility] (ABNORMAL) CMP (Comprehensive Metabolic Panel) (05/31/2018 6:27 AM CDT) Patholo gist Method Time Signature Potassium, S 5.0 3.6 - 5.2 05/31/2018 [facility] mmol/L 7:09 AM CDT LAB[facility]ATORIES - [facility] Sodium, S 144 135 - 145 05/31/2018 [facility] mmol/L 7:09 AM CDT [facility] - [facility] Chloride, S 106 98 - 107 05/31/2018 [facility] mmol/L 7:09 AM CDT [facility] - [facility] Bicarbonate, S 26 22 - 29 05/31/2018 [facility] mmol/L 7:09 AM CDT [facility]ATORIES - [facility] Anion Gap 12 7 - 15 05/31/2018 [facility] 7:09 AM CDT [facility] - [facility] BUN (Blood 24 8 - 24 05/31/2018 [facility] Urea mg/dL 7:09 AM CDT LABORATORIES - Nitrogen), S [facility] Creatinine 1.64 (H) 0.74 - 05/31/2018 [facility] 1.35 7:09 AM CDT LABORATORIES - mg/dL [facility] eGFR-Non 48 (L) >=60 05/31/2018 [facility] Black/ mL/min/BS 7:09 AM CDT LABORATORIES - [place] [facility] Comment: ----ADDITIONAL INFORMATION---- Estimated GFR calculated using the 2009 CKD_EPI creatinine equation. eGFR-Black/ 55 (L) >=60 mL/min/BSA 05/31/2018 7:09 [facility] [place] AM CDT LABORATORIES - [facility] Comment: ----ADDITIONAL INFORMATION---- Estimated GFR calculated using the 2009 CKD_EPI creatinine equation. Calcium, Total, S 9.7 8.6 - 10.0 05/31/2018 7:09 AM [facility] mg/dL CDT [facility]IES - [facility] Glucose, S 113 70 - 140 05/31/2018 7:09 AM [facility] mg/dL CDT [facility] Protein, Total, S 6.9 6.3 - 7.9 05/31/2018 7:09 AM [facility] g/dL CDT [facility] - [facility] Albumin, S 4.6 3.5 - 5.0 05/31/2018 7:09 AM [facility] g/dL CDT LAB[facility]ATORIES - [facility] Aspartate 19 8 - 48 U/L 05/31/2018 7:09 AM [facility] Aminotransferase (AST), CDT LABORA TORIES - S [facility] Alkaline Phosphatase, S 34 (L) 45 - 115 U/L 05/31/2018 7: 09 AM [facility] CDT [facility]IES - [facility] Alanine Aminotransferase 19 7 - 55 U/L 05/31/2018 7:0 9 AM [facility] (ALT), S CDT [facility] - [facility] Bilirubin, Total, S 0.9 <=1.2 mg/dL 05/31/2018 7:09 AM [facility] CDT [facility] - [facility] Specimen Anatomical Collection Method Collection Time Receive d Time (Source) Location / / Volume Laterality Blood (Blood, 05/31/2018 6:27 AM 05/31/20 18 6:32 Venous) CDT AM CDT Rah Soliz M.D. LAB BLOOD ADD-ON Performing Organization Address City/[facility]/ZIP Code Phon e Number [facility] [address] [phone] [facility] APTT (Activated Partial Thromboplastin Time) (05/31/2018 6:27 AM CDT) P athologist Signature Activated 27 25 - 37 05/31/2018 [facility] Partial sec 6:52 AM CDT LABORATORIES [facility] Specimen Anatomical Collection Method Collection Time Receive d Time (Source) Location / / Volume Laterality Blood (Blood, 05/31/2018 6:27 AM 05/31/20 18 6:33 Venous) CDT AM CDT Rah Soliz M.D. LAB BLOOD ADD-ON Performing Organization Address City/[facility]/ZIP Code Phon e Number [facility] - [address] PT (Prothrombin Time) with INR (05/31/2018 6:27 AM CDT) [facility] gist Method Time Signature Prothrombin 11.5 9.4 - 12.5 05/31/2018 [facility] Time, P sec 6:52 AM CDT LABORATORIES - [facility] INR 1.0 0.9 - 1.1 05/31/2018 [facility] 6:52 AM CDT LAB[facility]ATORIES - [facility] Comment: ----ADDITIONAL INFORMATION---- Standard intensity warfarin therapeutic range: 2.0 to 3.0 ?? High intensity warfarin therapeutic rang e: 2.5 to 3.5 Specimen Anatomical Collection Method Collection Time Receive d Time (Source) Location / / Volume Laterality Blood (Blood, 05/31/2018 6:27 AM 05/31/20 18 6:33 Venous) CDT AM CDT Rah Soliz M.D. LAB BLOOD ADD-ON Performing Organization Address City/[facility]/ZIP Code Phon e Number [facility] [address] [place], [place] [address] [facility] CBC with Differential (05/31/2018 6:27 AM CDT) [facility] Method Time Signature Hemoglobin 15.4 13.2 - 05/31/2018 [facility] 16.6 g/dL 6:38 AM CDT LABORATORIES - [facility] Hematocrit 44.0 38.3 - 05/31/2018 [facility] 48.6 % 6:38 AM CDT LABORATORIES - [facility] Erythrocytes 4.57 4.35 - 05/31/2018 [facility] 5.65 6:38 AM CDT LABORATORIES - x10(12)/L [facility] MCV 96.3 78.2 - 05/31/2018 [facility] 97.9 fL 6:38 AM CDT LABORATORIES - [facility] RBC Distrib Width 12.4 11.8 - 05/31/2018 [facility] 14.5 % 6:38 AM CDT LABORATORIES - [facility] Platelet Count 136 135 - 317 05/31/2018 [facility] x10(9)/L 6:38 AM CDT LABORATORIES - [facility] Leukocytes 3.5 3.4 - 9.6 05/31/2018 [facility] x10(9)/L 6:38 AM CDT LABORATORIES - [facility] Neutrophils 1.89 1.56 - 05/31/2018 [facility] 6.45 6:38 AM CDT LABORATORIES - x10(9)/L [facility] Lymphocytes 1.23 0.95 - 05/31/2018 [facility] 3.07 6:38 AM CDT LABORATORIES - x10(9)/L [facility] Monocytes 0.33 0.26 - 05/31/2018 [facility] 0.81 6:38 AM CDT LABORATORIES - x10(9)/L [facility] Eosinophils 0.05 0.03 - 05/31/2018 [facility] 0.48 6:38 AM CDT LABORATORIES - x10(9)/L [facility] Basophils <0.03 0.01 - 05/31/2018 [facility] 0.08 6:38 AM CDT LABORATORIES - x10(9)/L [facility] Specimen Anatomical Collection Method Collection Time Receive d Time (Source) Location / / Volume Laterality Blood (Blood, 05/31/2018 6:27 AM 05/31/20 18 6:32 Venous) CDT AM CDT Rah Soliz M.D. LAB BLOOD ADD-ON Performing Organization Address [facility] Phon e Number [facility] [address] [phone] [facility] Microalbuminuria, 24 Hour, Urine (05/31/2018 6:20 AM CDT) athologist Signature 24 Hour <13 <30 mg/24 05/31/2018 [facility] Excretion h 10:30 AM CDT LABORATORIES [facility] Comment: ----ADDITIONAL INFORMATION---- This test has been modified from the man ufacturer's instructions. Its performance characteri stics were determined by [facility] in a manner co nsistent with CLIA requirements. This test has not bee n cleared or approved by the U.S. Food and Drug Admin istration. Collection Duration 24 h 05/31/2018 7:42 AM [facility] CDT LABORATORIES [facility] S Urine Volume 2571 mL 05/31/2018 7:42 AM [facility] LABORATORIES [facility] S Albumin Excretion Rate <9 <20 mcg/min 05/31/2018 10:3 0 AM [facility] S Albumin Concentration <5.0 mg/L 05/31/2018 10:30 A [facility] S Specimen Anatomical Collection Method Collection Time Receive d Time (Source) Location / / Volume Laterality Urine (Urine, 24 05/31/2018 6:20 AM 05/31 7:41 Hours) CDT AM CDT Resulting Agency Comment Mailed In Specimen Rah Soliz M.D. LAB URINE ORDERABLES Performing Organization Address City/[facility]/ZIP Code Phon e Number [facility] [address] [phone] [facility] Protein, Total, 24 Hour, Urine (05/31/2018 6:20 AM CDT) athologist Signature Total Protein, <103 <229 mg/24 05/31/2018 [facility] 24 HR, U h 11:03 AM CDT LABORATORIES [facility] Comment: ----ADDITIONAL INFORMATION---- On 03/20/2017 the total protein assay me thod changed resulting in approximately a 15% increase in prote in values. Collection Duration 24 h 05/31/2018 7:42 AM C DT [facility] S Urine Volume 2571 mL 05/31/2018 7:42 AM CDT [facility] S Concentration <4 mg/dL 05/31/2018 11:03 AM CDT [facility] S Specimen Anatomical Collection Method Collection Time Receive d Time (Source) Location / / Volume Laterality Urine (Urine, 24 05/31/2018 6:20 AM 05/31 7:41 Hours) CDT AM CDT Resulting Agency Comment Mailed In Specimen Rah Soliz M.D. LAB URINE ORDERABLES Performing Organization Address City/State/ZIP Code Phon e Number [facility] - [address] documented in this encounter Visit Diagnoses Diagnosis Transplant Renal (HCC) - Primary Transplant Renal (HCC) Transplant Renal (HCC) documented in this encounter
--- OUTSIDE RECORDS SUMMARY | 2022-08-23 10:05 | XMS_ITS | Encounter Summary ---
:1965 Author Organization [facility] Address [address] [place] [address] Care Team Providers Name Role Phone Unavailable Primary Care Provider Unavailable Encounter Details Date Type Department Care Team Description 04/19/2018 Clinical Communication Paulina Chavez [place] [facility] Transplantation and Clinical Regeneration in [place], [place] [address] [place] [phone] Social History Tobacco Use Types Packs/Day Years Used Date Smoking Tobacco: Never Alcohol Habits Answer Date Recorded How often do you have a drink containing 4 or more times a w [facility] 05/12/2021 alcohol? How many drinks containing alcohol [...] How often do you attend yazidi or oriental orthodox Never 05/12/2021 services? Do [...] as of this encounter Results Tacrolimus Level (07/02/2018 7:50 AM CDT) P athologist Signature Tacrolimus, B 5.6 5.0-15.0 07/05/2018 [facility] (Trough) 10:[address] ng/mL [facility] Comment: ----ADDITIONAL [...] performa nce characteristics determined by [facility] in a manner consistent with CLIA requirements. This test has not been cleared or approved by the U.S. Margarita d and Drug Administration. Specimen Anatomical Collection Method Collection Time Receive d Time (Source) Location / / Volume Laterality Blood (Blood, 07/02/2018 7:50 AM 07/05/20 18 6:58 Venous) CDT AM CDT Resulting Agency Comment Mailed In Specimen Rashaun Boogie P.A.-C. LAB BLOOD NON ADD-ON Performing Organization Address City/State/ZIP Code Phon e Number [facility] [address] [place], [place] [address] [facility] documented in this encounter Visit Diagnoses Diagnosis Transplant Renal (HCC) - Primary documented in this encounter
--- OUTSIDE RECORDS SUMMARY | 2022-08-23 10:05 | XMS_ITS | Encounter Summary ---
:1965 Author Organization [facility] Address [address] [place] [address] Care Team Providers Name Role Phone Unavailable Primary Care Provider Unavailable Encounter Details Date Type Department Care Team Description 05/06/2018 Hospital Encounter Department of Rashaun Boogie Renal Laboratory Medicine T, P.AKg-CKg (HCC) and Pathology, [facility] in [place], [place] [address] [place] [address] Social History Tobacco Use Types Packs/Day Years [...] How often do you attend hoahaoism or mosque Never 05/12/2021 services? Do you belong to [...] 81 mg by mouth 0 03/2015 daily. calcium carbonate-vit Take 1 tablet by 0 06/30/20 15 D3-min 600 mg calcium- mouth daily. 6 400 unit tablet multivitamin tablet Take 1 tablet by 0 03/23/2014 mouth daily. omega-3 fatty acids-fish Take 1 capsule by 0 04/26 oil 300-1,000 mg per mouth daily. capsule alendronate (FOSAMAX) 70 Take 1 tablet by mouth once a week. Take 30 minutes before first food 0 05/15/2017 05/31/2018 mg tablet with 8 ounces of water; avoid lying down for 30 minutes. Sunday aspirin-calcium carbonate Take 81 mg by mouth. 0 06/30/2015 06/03/2018 81 mg-300 mg calcium(777 mg) tablet atorvastatin (LIPITOR) 20 Take 20 mg by mouth. 0 04/24/2017 05/31/2018 mg tablet mycophenolate (CELLCEPT) Take 2 capsules by mouth as directed. take 2 cap in am and 1 capsule in PM. oK FOR SAME 0 05/07/2017 05/31/2018 250 mg capsule GENERIC. predniSONE (DELTASONE) 5 Take 1 tablet (5 mg 90 tablet 3 05/31/2018 mg tabletIndications: total) by mouth Transplant Renal (HCC) daily. tacrolimus (PROGRAF) 1 mg Take 2 mg by mouth 2 0 01/24/2018 05/31/2018 capsule (two) times a day. documented as of this encounter Plan of Treatment Not on filedocumented as of this encounter Procedures Procedure Name Priority Date/Time Associated Comments Diagnosis TACROLIMUS LEVEL, B Routine 07/02/2018 7:50 AM Transplant Mary l Results for this CDT ([facility]) procedure are i n the results section. documented in this encounter Results Tacrolimus Level (07/02/2018 7:50 AM CDT) P athologist Signature Tacrolimus, B 5.6 5.0-15.0 07/05/2018 [facility] (Trough) 10:[address] [...] and its performa nce characteristics determined by [facility] in a manner consistent with CLIA [...] City/State/ZIP Code Phon e Number [facility] [address] [place] [address] [facility] documented in this encounter Visit Diagnoses Diagnosis Transplant Renal (HCC) documented in this encounter
--- OUTSIDE RECORDS SUMMARY | 2022-08-23 10:05 | XMS_ITS | Encounter Summary ---
:1965 Author Organization [facility] Address [address] [place] [address] Care Team Providers Name Role Phone Unavailable Primary Care Provider Unavailable Reason for Visit Transplant (Routine) - Closed Specialty Diagnoses / Procedures Referred By Contact Refer red To Contact Transplant Surgery / Diagnoses Transplant Renal (HCC) [facility] Transplant [address] [place] [address] Referral ID Status Reason Start Date Expiration Date Visits Requ ested Visits Authorized [id number] Closed 04/29/2018 04/29/2019 1 1 Encounter Details Date Type Department Care Team Description 05/31/2018 Comprehensive Visit Department of [place] [address] Screening Examination Skin Cancer (Prima ry Dx); Dermatology in Arik Falk M.D., M.S. Transplant Renal (HCC); [facility] [address] [place] [phone] Social History Tobacco Use Types Packs/Day Years [...] How often do you attend anabaptist or nondenominational Never 05/12/2021 services? Do you [...] documented as of this encounter Consult Notes Arik Falk M.D., M.S. - 05/31/2018 3:00 PM CDT CHIEF COMPLAINT / REASON FOR VISIT Skin cancer screening examination HISTORY OF PRESENT ILLNESS Mr. Tyler Morocho is a 52 y.o. male with a history of a renal transplant in 2010 on chronic immunosuppression with CellCept, prednisone and tacrolimus. He presents today for full skin examination. He has no history of skin cancer. The patient reports no new, painful itching or changing skin lesions. He tries to be diligent with photoprotective measures. He does not report any systemic symptoms andhas no other questions or concerns. Allergies Allergen Reactions ??? No Known Allergies Other (see comments) PAST MEDICAL HISTORY Reviewed FAMILY HISTORY Reviewed PHYSICAL EXAM General: Awake, alert, in no acute distress, and with appropriate affect. Eyes: No scleral injection or icterus. No eyelid abnormalities. Cardio: No lower extremity edema. Skin: I have examined the scalp, face, neck, chest, abdomen, back, bilateral upper extremities, and bilateral lower extremities, genital area and buttocks per patient request. Richter skin type 2.Involving the trunk and extremities are numerous light to dark brown macules and papules with banal appearing features consistent with benign melanocytic nevi. ASSESSMENT / PLAN #Skin cancer screening examination in a transplant patient on immunosuppression No worrisome findings for skin cancer today. Sun protection and sun avoidance were reviewed with thepatient. Educational materials were provided regarding skin self-examination, the warning signs and symptoms of skin cancer, and the proper use of sunscreens. I would recommend a full skin cancer screening examination with dermatology every year. #Multiple benign appearing nevi The ABCDE criteria for melanoma was reviewed with the patient. None of the patient's nevi reach the clinical threshold for biopsy. I recommend continued sun protection, self-skin examinations, and observation. Should any of the patient's nevi change in size, color, texture, or shape or develop symptoms such as itching or bleeding, I recommend an immediate return visit for reassessment. All questions answered. PATIENT EDUCATION Ready to learn. No apparent learning barriers were identified. Learning preferences include listening. Explained diagnosis and treatment plan; patient/guardian of patient expressed understanding of thecontent. Associated attestation - Ema Padgett M.D. - 05/31/2018 2:59 PM CDT I saw and evaluated the patient, participating in the maxwell portions of the service. I reviewed the resident???s note. I agree with the resident???s findings and plan. Ema Padgett M.D. documented in this encounter Plan of Treatment Not on filedocumented as of this encounter Visit Diagnoses Diagnosis Screening Examination Skin Cancer - Prim leena Transplant Renal (HCC) Nevi Multiple documented in this encounter
--- OUTSIDE RECORDS SUMMARY | 2022-08-23 10:05 | XMS_ITS | Encounter Summary ---
:1965 Author Organization [facility] Address [address] [place] [address] Care Team Providers Name Role Phone Unavailable Primary Care Provider Unavailable Encounter Details Date Type Department Care Team Description 03/25/2018 Hospital Encounter Department of Rashaun Boogie Renal Laboratory Medicine T, P.AKg-CKg (HCC) and Pathology, [facility] in [place], [place] [address] [place] [address] Social History Tobacco Use Types Packs/Day Years [...] How often do you attend quaker or islam Never 05/12/2021 services? Do you [...]
--- OUTSIDE RECORDS SUMMARY | 2022-08-23 10:05 | XMS_ITS | Encounter Summary ---
:1965 Author Organization [facility] Address [address] [place] [address] Care Team Providers Name Role Phone Unavailable Primary Care Provider Unavailable Encounter Details Date Type Department Care Team Description 05/31/2018 Orders Only Eleni Cristobal Tr ansplant Renal (HCC) (Primary Dx); Center for R.N., C.C.T.C. High Risk Medication Transplantation and [address] [place] [address] in [place], [place] [address] [place] [address] [place] [address] (Work) [phone] Social History Tobacco Use Types Packs/Day Years Used Date Smoking Tobacco: Never Smokeless Tobacco: Never Alcohol Habits Answer Date Recorded How often do you have a drink containing 4 or more times a w [place] 05/12/2021 alcohol? How many drinks containing alcohol [...] How often do you attend latter-day or pentecostal Never 05/12/2021 services? Do you [...]
--- OUTSIDE RECORDS SUMMARY | 2022-08-23 10:05 | XMS_ITS | Encounter Summary ---
:1965 Author Organization [facility] Address [address] [place] [address] Care Team Providers Name Role Phone Unavailable Primary Care Provider Unavailable Reason for Visit Reason Comments Med Refill Encounter Details Date Type Department Care Team Description 03/13/2018 [facility] Refill Transplantation and Clinical R.N ., C.C.T.C. Regeneration in [place] [address] [place], [place] [address] [place] [address] [place] [address] [phone] Social History Tobacco Use Types Packs/Day Years Used Date Smoking Tobacco: Never Alcohol Habits Answer Date Recorded How often do you have a drink containing 4 or more times a w [place] 05/12/2021 alcohol? How many drinks containing alcohol [...] How often do you attend quaker or cheondoism Never 05/12/2021 services? Do you [...] slept in a group home (including now)? Sex Assigned at Date Recorded Male 05/27/2018 8:52 AM CDT documented as of this encounter Plan of Treatment Not on filedocumented as of this encounter Visit Diagnoses Diagnosis Transplant Renal (HCC) - Primary documented in this encounter
--- OUTSIDE RECORDS SUMMARY | 2022-08-23 10:05 | XMS_ITS | Encounter Summary ---
:1965 Author Organization [facility] Address [address] [place] [address] Care Team Providers Name Role Phone Unavailable Primary Care Provider Unavailable Encounter Details Date Type Department Care Team Description 05/31/2018 Hospital Encounter Department of Rah Soliz [facility] Building, in [address] [place] [address] [place], [place] [phone] (Work) [phone] Social History Tobacco Use Types Packs/Day Years Used Date Smoking Tobacco: Never Smokeless Tobacco: Never Alcohol Habits Answer Date Recorded How often do you have a drink containing 4 or more times a w [place] 05/12/2021 alcohol? How many drinks containing alcohol [...] How often do you attend sikh or restorationist Never 05/12/2021 services? Do you [...] or slept in a correction (including now)? Sex Assigned at Date Recorded [...] oil 300-1,000 mg per mouth daily. capsule aspirin-calcium carbonate Take 81 mg by mouth. 0 06/30/2015 06/03/2018 81 mg-300 mg calcium(777 mg) tablet documented as of this encounter Plan of Treatment Not on filedocumented as of this encounter Procedures Procedure Name Priority Date/Time Associated Comments Diagnosis DX CHEST AP OR PA RAD - Routine 05/31/2018 9:43 Transplant Renal Re sults for this AND [...] Negative chest. Rah LOPEZ DIAGNOSTIC IMAGING PROCE REINA documented in this encounter Visit Diagnoses Diagnosis Transplant Renal (HCC) documented in this encounter
--- OUTSIDE RECORDS SUMMARY | 2022-08-23 10:05 | XMS_ITS | Encounter Summary ---
:1965 Author Organization [facility] Address [address] [place] [address] Care Team Providers Name Role Phone Unavailable Primary Care Provider Unavailable Reason for Visit Reason Comments Med Refill Encounter Details Date Type Department Care Team Description 05/31/2018 [facility] Jacki Jeter. Med Refill Transplantation and Clinical [facility] in [place], [place] [address] [place] [address] Social History Tobacco Use Types Packs/Day [...] 05/12/2021 relatives? How often do you attend confucianist or congregation Never 05/12/2021 services? Do you belong to any clubs or organizations such No 05/12/2021 as confucianist groups, unions, fraternal or athletic groups, or [...] or slept in a custodial (including now)? Sex Assigned at Date Recorded Male 05/27/2018 8:52 AM CDT documented as of this encounter Plan of Treatment Not on filedocumented as of this encounter Visit Diagnoses Not on filedocumented in this encounter
--- OUTSIDE RECORDS SUMMARY | 2022-08-23 10:05 | XMS_ITS | Encounter Summary ---
:1965 Author Organization [facility] Address [address] [place] [address] Care Team Providers Name Role Phone Unavailable Primary Care Provider Unavailable Reason for Referral Outpatient (Routine) - Closed Specialty Diagnoses / Procedures Referred By Contact Refer red To Contact Radiology Diagnoses Transplant Renal (HCC) Rah Soliz M.D. [facility] Procedures BMD Bone Density Spine Hips BMD BONE DENSITY SPINE HIPS [place] DEXA BONE DENSITY AXIAL [facility] XR DEXA AXIAL SKLTN [address] [place], [place] [address] Referral ID Status Reason Start Date Expiration Date Visits Requ ested Visits Authorized [id number] Closed 04/26/2018 04/26/2019 1 1 Reason for Visit Outpatient (Routine) - Closed Specialty Diagnoses / Procedures Referred By Contact Refer red To Contact Radiology Diagnoses Transplant Renal (HCC) Rah oSliz M.D. [facility] Procedures BMD Bone Density Spine Hips BMD BONE DENSITY SPINE HIPS MO DEXA BONE DENSITY AXIAL FOUNDATION HC XR DEXA AXIAL SKLTN [address] [place] [address] Referral ID Status Reason Start Date Expiration Date Visits Requ ested Visits Authorized [id number] Closed 04/26/2018 04/26/2019 1 1 Encounter Details Date Type Department Care Team Description 05/31/2018 Hospital Encounter Department of Rah Soliz Transpl ant Renal RadiologyJulio Cesar M.D. ([facility]) Building, in [address] [place] [address] [place] [address] [place], [place] [phone] (Work) [phone] Social History Tobacco Use Types Packs/Day Years Used Date Smoking Tobacco: Never Smokeless Tobacco: Never Alcohol Habits Answer Date Recorded How often do you have a drink containing 4 or more times a w chickahominy indian tribe 05/12/2021 alcohol? How many drinks [...] How often do you attend latter-day or zoroastrianism Never 05/12/2021 services? Do you [...] 300-1,000 mg per mouth daily. capsule aspirin-calcium Take 81 mg by 0 06/30/20152017 carbonate 81 mg-300 mg mouth. calcium(777 mg) tablet mycophenolate (CELLCEPT) Take 2 capsules (500 mg [...] Diagnosis BMD BONE DENSITY RAD - Routine 05/31/2018 10:51 Transplant Renal Re sults for this SPINE HIPS (most inpatients AM CDT ([facility]) procedure a re in and all the [...] evidence of skeletal fragility [facility] the [facility]. Degenerative changes are present which m ay spuriously elevate the spine BMD measurement. Patient does not meet ISCD guidelines fo r FRAX calculations. IMPRESSION: Osteoporosis aRh LOPEZ DXA PROCEDURES documented in this encounter Visit Diagnoses Diagnosis Transplant Renal (HCC) documented in this encounter
--- OUTSIDE RECORDS SUMMARY | 2022-08-23 10:05 | XMS_ITS | Encounter Summary ---
:1965 Author Organization [facility] Address [address] [place] [address] Care Team Providers Name Role Phone Unavailable Primary Care Provider Unavailable Encounter Details Date Type Department Care Team Description 04/01/2018 Clinical Communication Zayra Rey, Center for M.D. Transplantation and [address] [place] [address] Clinical [facility] in [place], [place] [address] [place] [place] [address] [place] [address] (Work) [phone] Social History Tobacco Use Types Packs/Day Years [...] How often do you attend voodoo or moravian Never 05/12/2021 services? Do you [...] this encounter Miscellaneous Notes Telephone Encounter - Snow Ba - 04/23/2018 3:31 PM CDT Fredi- pt does not want a biopsy Telephone Encounter - Rah Soliz M.D. - 04/02/2018 9:39 AM CDT Per my previous note he is not on any blood thinners? What blood thinner he is one? Telephone Encounter - Snow Ba - 04/01/2018 1:31 PM CDT 7th year biopsy needed Patient is scheduled for an annual visit [...]
--- OUTSIDE RECORDS SUMMARY | 2022-08-23 10:05 | XMS_ITS | Encounter Summary ---
:1965 Author Organization [facility] Address [address] [place] [address] Care Team Providers Name Role Phone Unavailable Primary Care Provider Unavailable Encounter Details Date Type Department Care Team Description 03/19/2018 Clinical Communication Joey Patel , Center for Haritha L Transplantation and [phone] Clinical Regeneration in (Work) [place], [place] [address] [place] [address] Social History Tobacco Use Types Packs/Day Years Used Date Smoking Tobacco: Never Alcohol Habits Answer Date Recorded How often do you have a drink containing 4 or more times a w [place] 05/12/2021 alcohol? How many drinks containing alcohol [...] How often do you attend congregation or confucianist Never 05/12/2021 services? Do you [...] or slept in a prison (including now)? Sex Assigned at Date Recorded Male 05/27/2018 8:52 AM CDT documented as of this encounter Miscellaneous Notes Telephone Encounter - Alexandra Nagel - 03/19/2018 9:41 AM CDT Caller's full name: Pro [ ] Self [ x ] Patient Significant Other [ ] Family Member/Caregiver [ ] Internal Call [ ] Physician's Office Provider Name: Facility: [ ] Pharmacy: [ ] Dialysis Center: [ ] Lab Facility [ ] Home Health Care Agency Facility: [ ] Child Care Group Leader, Insurance Company: [ ] Hall Message: Would like to schedule annual appt. May 31 or for Martínez Preferred follow up: [x ] Portal [ x ] Phone Call- call if dates dont work out [ ] Will Call Again [ ] FYI only-no response needed For questions about this message, please contact [PAC NAME] alexandra Please attach a Log Note to this message. documented in this encounter Plan of Treatment Not on filedocumented as of this encounter Visit Diagnoses Not on filedocumented in this encounter
--- OUTSIDE RECORDS SUMMARY | 2022-08-23 10:05 | XMS_ITS | Encounter Summary ---
:1965 Author Organization [facility] Address [address] [place] [address] Care Team Providers Name Role Phone Unavailable Primary Care Provider Unavailable Encounter Details Date Type Department Care Team Description 03/22/2018 Clinical Communication Paulina Chavez [place] for T, P.A.-C. Transplantation and Clinical Regeneration in [place], [place] [address] [place] [address] Social History Tobacco Use Types Packs/Day [...] How often do you attend anabaptist or restorationist Never 05/12/2021 services? Do you [...]
--- OUTSIDE RECORDS SUMMARY | 2022-08-23 10:05 | XMS_ITS | Encounter Summary ---
:1965 Author Organization [facility] Address [address] [place] [address] Care Team Providers Name Role Phone Unavailable Primary Care Provider Unavailable Encounter Details Date Type Department Care Team Description 05/31/2018 Hospital Encounter Department of Rah Soliz Transpl ant Renal Laboratory Medicine M.DKg (HCC) and Pathology, [address] [place] [address] in [facility] [address] [place] [phone] 200 [facility] (Work) [place], [place] [phone] (Fax) [phone] Social History Tobacco Use Types Packs/Day Years Used Date Smoking Tobacco: Never Smokeless Tobacco: Never Alcohol Habits Answer Date Recorded How often do you have a drink containing 4 or more times a w [place] 05/12/2021 alcohol? How many drinks containing alcohol [...] How often do you attend hindu or scientologist Never 05/12/2021 services? Do you belong to [...] - Inhaled Oxygen Concentration - - Weight 74.1 kg (163 lb 5.8 oz) 05/31/2018 7:00 AM CDT Height 185.5 cm (6' 1.03) 05/31/2018 7:00 AM CDT Body Mass Index 21.53 05/31/2018 7:00 AM CDT documented in this encounter [...] for 1 Occurrences Iothalamate (Renal (HCC) starting 05/31/2018 Studies Unit) until 05/31/20 18 documented as of this encounter Procedures Procedure Name Priority Date/Time Associated Comments Diagnosis IOTHALAMATE, Routine 05/31/2018 7:10 AM Results f or this GLOMERULAR CDT procedure are i n FILTRATION RATE, P the resul ts section. documented in this encounter Results (ABNORMAL) Iothalamate, Glomerular Filtration Rate (05/31/2018 7:10 AM CDT) Analysis Performed At Patho logist Time Signature Uncorrctd 70 mL/min 05/31/2018 [facility] Iothal Cl 1:26 PM CDT [facility] Corrctd Iothal 61 (L) 72 - 126 05/31/2018 [facility] Cl mL/min/BSA 1:26 PM CDT [facility] Comment: ----ADDITIONAL INFORMATION---- This test was developed and its performa nce characteristics determined by [facility] in a manner consistent with CLIA requirements. This test has not been cleared or approved by the U.[place]. Margarita d and Drug Administration. Specimen Anatomical Collection Method Collection Time Receive d Time (Source) Location / / Volume Laterality Varies (Blood, 05/31/2018 7:10 AM 018 9:12 Venous) CDT AM CDT Narrative [facility] - 05/31/2018 1:27 PM CDT Specimen Information: Specimen ID: [id number] Specimen Type: Varies Specimen Collection Start Date: 8 ??7:10 AM Specimen Received Date: 05/31/2018 ??9:12 AM Specimen ID: [id number] Specimen Type: Varies Specimen Collection Start Date: 8 ??8:09 AM Specimen Received Date: 05/31/2018 ??9:12 AM Specimen ID: [id number] Specimen Type: Varies Specimen Collection Start Date: 8 ??9:03 AM Specimen Received Date: 05/31/2018 ??9:12 AM Specimen ID: [id number] Specimen Type: Varies Specimen Collection Start Date: 8 ??8:13 AM Specimen Received Date: 05/31/2018 ??9:12 AM Specimen ID: [id number] Specimen Type: Varies Specimen Collection Start Date: 8 ??9:07 AM Specimen Received Date: 05/31/2018 ??9:12 AM Jennifer Evangelista M.D. LAB BLOOD NON ADD-ON Performing Organization Address City/State/ZIP Code Phon e Number [facility] - [address] [place], [place] [address] [facility] documented in this encounter Visit Diagnoses Diagnosis Transplant Renal (HCC) documented in this encounter Administered Medications Inactive Administered Medications - up to 3 most recent administrations Medication Order MAR Action Action Date Dose Rate Site iothalamate meglumine 30 Given 05/31/2018 7:11 AM 1 mL Left Upper Arm % injection 1 mL (CONRAY CDT (Back) 30) 1 mL, subcutaneous, Once, On Sun05/31/18 at 0700, For 1 dose documented in this encounter
--- OUTSIDE RECORDS SUMMARY | 2022-08-23 10:05 | XMS_ITS | Encounter Summary ---
:1965 Author Organization [facility] Address [address] [place] [address] Care Team Providers Name Role Phone Unavailable Primary Care Provider Unavailable Encounter Details Date Type Department Care Team Description 05/13/2018 Hospital Encounter Department of Rah Soliz Transpl ant Renal Laboratory Medicine M.DKg (HCC) and Pathology, [address] [place] [address], in [place], [place] [address] [place] [address] [place], [place] (Work) [phone] Social History Tobacco Use Types Packs/Day Years [...] How often do you attend caodaism or alevism Never 05/12/2021 services? Do you [...] mg tabletIndications: total) by mouth Transplant Renal ([facility]) daily. tacrolimus (PROGRAF) 1 mg Take 2 mg by mouth 2 0 01/24/2018 05/31/2018 capsule (two) times a day. documented as of this encounter Plan of Treatment Not on filedocumented as of this encounter Procedures Procedure Name Priority Date/Time Associated Diagnosis Comme nts PROTEIN, TOTAL, 24 Routine 05/31/2018 6:20 AM Transplant Renal Results for this HR, U CDT ([facility]) procedure are i n the results section. ALBUMIN, 24 HR, U Routine 05/31/2018 6:20 AM Transplant Renal Results for this CDT ([facility]) procedure are i n the results section. documented in this encounter Results Microalbuminuria, 24 Hour, Urine (05/31/2018 6:20 AM CDT) athologist Signature 24 Hour <13 <30 mg/24 05/31/2018 [facility] Excretion h 10:30 AM CDT [facility] Comment: ----ADDITIONAL INFORMATION---- This test has been modified from the man ufacturer's instructions. Its performance characteri stics were determined by [facility] in a manner co nsistent with CLIA requirements. This test has not bee n cleared or approved by the U.S. Food and Drug Admin istration. Collection Duration 24 h 05/31/2018 7:42 AM M [facility] CDT [facility] - [facility] S Urine Volume 2571 mL 05/31/2018 7:42 AM [facility] Albumin Excretion Rate <9 <20 mcg/min 05/31/2018 10:3 0 AM [facility] Albumin Concentration <5.0 mg/L 05/31/2018 10:30 A M [facility] Specimen Anatomical Collection Method Collection Time Receive d Time (Source) Location / / Volume Laterality Urine (Urine, 24 05/31/2018 6:20 AM 05/31 7:41 Hours) CDT AM CDT Resulting Agency Comment Mailed In Specimen Rah Soliz M.D. LAB URINE ORDERABLES Performing Organization Address City/State/ZIP Code Phon e Number [facility] - 200 [place] [address] [facility] Protein, Total, 24 Hour, Urine (05/31/2018 6:20 AM CDT) athologist Signature Total Protein, <103 <229 mg/24 05/31/2018 [facility] 24 HR, U h 11:03 AM CDT [facility] Comment: ----ADDITIONAL INFORMATION---- On 03/20/2017 the total protein assay me thod changed resulting in approximately a 15% increase in prote in values. Collection Duration 24 h 05/31/2018 7:42 AM C DT [facility] Urine Volume 2571 mL 05/31/2018 7:42 AM CDT [facility] Concentration <4 mg/dL 05/31/2018 11:03 AM CDT [facility] Specimen Anatomical Collection Method Collection Time Receive d Time (Source) Location / / Volume Laterality Urine (Urine, 24 05/31/2018 6:20 AM 05/31 7:41 Hours) CDT AM CDT Resulting Agency Comment Mailed In Specimen Rah Soliz M.D. LAB URINE ORDERABLES Performing Organization Address City/State/ZIP Code Phon e Number [facility] - [address] [place], [place] [address] [facility] documented in this encounter Visit Diagnoses Diagnosis Transplant Renal (HCC) documented in this encounter
--- OUTSIDE RECORDS SUMMARY | 2022-08-23 10:05 | XMS_ITS | Encounter Summary ---
:1965 Author Organization [facility] Address [address] [place] [id number] Care Team Providers Name Role Phone Unavailable Primary Care Provider Unavailable Reason for Referral Outpatient (Routine) - Closed Specialty Diagnoses / Referred By Contact Referred To Contact Procedures Reproductive Diagnoses Osteopenia Rah Santos M.D. [facility] Endocrinology and [address] [place] [address] / [place], [place] Endocrinology [phone] Referral ID Status Reason Start Date Expiration Date Visits Requ ested Visits Authorized [id number] Closed 05/31/2018 05/31/2019 1 1 Reason for Visit Outpatient (Routine) - Closed Specialty Diagnoses / Procedures Referred By Contact Refer red To Contact Transplant [facility] [address] [place] [phone] Referral ID Status Reason Start Date Expiration Date Visits Requ ested Visits Authorized [id number] Closed 03/15/2018 03/15/2019 1 1 Encounter Details Date Type Department Care Team Description 05/31/2018 Office Visit Rah Rey M.D. [address] [place] [phone] Osteopenia (Primary Dx); Eleni Leon R.N., C.C.T.C. [address] [place] [phone] Transplant Renal (HCC); Transplantation and Immunosu ppressed [facility] advertising display rotator [address] [place] [phone] Social History Tobacco Use Types Packs/Day Years Used Date Smoking Tobacco: Never Smokeless Tobacco: Never Alcohol Habits Answer Date Recorded How often do you have a drink containing 4 or more times a w tulalip 05/12/2021 alcohol? How many drinks containing alcohol [...] How often do you attend hoahaoism or sikh Never 05/12/2021 services? Do you [...] or slept in a half-way (including now)? Sex Assigned at Date Recorded Male 05/27/2018 8:52 AM CDT documented as of this encounter Last Filed Vital Signs Vital Sign Reading Time Taken Comments Blood Pressure 103/69 05/31/2018 1:08 PM CDT Pulse 90 05/31/2018 1:08 PM CDT Temperature 36.6 ??C (97.9 ??F) 05/31/2018 1:08 PM CDT Respiratory Rate - - Oxygen Saturation - - Inhaled Oxygen Concentration - - Weight 74.4 kg (164 lb 0.4 oz) 05/31/2018 1:08 PM CDT Height 184.8 cm (6' 0.76) 05/31/2018 1:08 PM CDT Body Mass Index 21.79 05/31/2018 1:08 PM CDT documented in this encounter Progress Notes Eleni Henley R.N. - 05/31/2018 1:30 PM CDT Mr. Morocho [facility] for protocol 7 year visit. The patient was seen with Dr. Santos. Reinforced plan of care outline by provider. Lab draws will be every 3 months with tacrolimus level. [facility] return at 10 years for protocol biopsy, or as determined by medical condition. ???Tips to Keep Healthy After Transplant: tip sheet was given to the patient. All questions answered. Patient states understanding of information. No barriers to learning identified. Has the patient been hospitalized since last patient status date? No Was there evidence of noncompliance with immunosuppression medication during this follow-up period that compromised the patient's recovery? No Karnofsky Score:100 - Fully active, able to carry on all pre-disease performed without restriction Physical capacity: No limitations Working for Income: Unknown Diabetes during the follow-up period? No Biological or anti-viral therapy? No Recipient diagnosed with any malignant cancer since last follow up? No Eleni GANNON [employer] Supervisor Rah Santos M.D. - 05/31/2018 1:30 PM CDT Answers for HPI/ROS submitted by the patient on 05/31/2018 No general issues: Yes No eye issues: Yes No ENT issues: Yes No heart issues: Yes No respiratory issues: Yes No GI issues: Yes No muscle/bone issues: Yes No skin issues: Yes Headache: Yes No mental health issues: Yes No blood/lymph issues: Yes No urinary/reproductive issues: Yes Rah Santos M.D. - 05/31/2018 1:30 PM CDT KIDNEY TRANSPLANT FOLLOW UP VISIT REASON FOR VISIT: Tyler Morocho is a 52 y.o. male who presents for kidney transplant and immunosuppression management follow up. 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 At 1 point he had low-grade BK viremia but he had been subjected to reduced CellCept does his BK virus has not been detected anymore. Overall he has been doing well in his evaluation this year went very well. The only major issue he has is severe osteopenia he was on Fosamax for many years and last year because he has been on it for several years it was stopped in hope to have some time for washout and reintroduce him to bisphosphonates. He had worse T-scores on his DEXA bone scan this year and we discussed the importance of working him up. His parathyroid hormone has been slightly on the high normal which is a good to keep his bone remodeled. His 25 hydroxy vitamin-D level is still pending. I discussed with him referral to our Endocrinology/[facility] for opinion for whether he could benefit from knew where therapy to avoid him progressing to osteoporosis. Indeed being on prednisone is not optimal and we had discussed that laced with role of prednisone can expose him to risk of acute cellular rejection that may not be amenable to treatment. At this stage before we offer such therapy in terms of reduction or withdrawal of prednisone I would recommend to refer him to Endocrinology for opinion. His vitamin-D level from today is still pending. He has been on 2 mg of tacrolimus p.o. b.i.d. for long time this tacrolimus trough level is on the higher side at 10.1 we discussed repeating a t acrolimus trough level has he has been on stable dose for long time and that is his preference before we proceed with reducing the dose. Otherwise his labs and evaluation look great and stable his blood pressure has been okay. REVIEW OF SYSTEMS: A comprehensive review of systems was obtained and was otherwise negative except what mentioned in the HPI. Answers for HPI/ROS submitted by the patient were reviewed by me when available. PAST MEDICAL AND SURGICAL HISTORIES: Medical records reviewed by me and discussed with the patient and noted below. No past medical history on file. Past Surgical History: Procedure Laterality Date ??? [...] under ultrasound guidance in the CURRENT MEDICATIONS: Reviewed by me. PHYSICAL EXAM: BP 103/69 Pulse 90 Temp 36.6 ??C (Tympanic) Ht 184.8 cm Wt 74.4 kg BMI 21.79 kg/m?? , Bodymass index is 21.79 kg/m??. GENERAL APPEARANCE: alert and no acute [...] April 2011: His kidney allograftfunction has been stable 2. Immunosuppression management: Will continue current immunosuppression medication and since his tacrolimus was slightly on the higher side I will repeated in 3 months as he has been on stable dose for long time and recently changed the timing he takes tacrolimus but this was reviewed trough level per him. 3. End-stage renal disease due to IgA nephropathy: Previously there was no evidence of IgA recurrence on the kidney transplant biopsy 4. History of lobe grade BK viremia 5. Osteopenia: His PTH is still on the higher normal and that is important to keep his bone remodel.Will make sure he has adequate vitamin D levels and because of the progression of his osteopenia andhis younger age I would refer him to our colleagues in the Bone [facility] in Endocrinology for advice and opinion. 6. History of gout 7. Secondary hyperparathyroidism Overall his evaluation looks good his blood pressure is under good control, the major issue this year it osteopenia as has been off the Fosamax for a year now. Plan as above. Answers for HPI/ROS submitted by the patient on 05/31/2018 No general issues: Yes No eye issues: Yes No ENT issues: Yes No heart issues: Yes No respiratory issues: Yes No GI issues: Yes No muscle/bone issues: Yes No skin issues: Yes Headache: Yes No mental health issues: Yes No blood/lymph issues: Yes No urinary/reproductive issues: Yes documented in this encounter Miscellaneous Notes Addendum Note - Rah Santos M.D. - 05/31/2018 1:30 PM CDT Addended by: RAH SANTOS on: 05/31/2018 03:05 PM Modules accepted: Level of Service documented in this encounter Plan of Treatment Scheduled Referrals Name Type Priority Associated Order Schedule Diagnoses Endocrinology - Outpatient Referral Routine Osteopenia Expec marcelle: Osteoporosis / 05/31/2018 metabolic bone (Approximate) , disorders consult Expires: (clinic) 05/31/2021 documented as of this encounter Visit Diagnoses Diagnosis Osteopenia - Primary Transplant Renal (HCC) Immunosuppressed State documented in this encounter
--- OUTSIDE RECORDS SUMMARY | 2022-08-23 10:05 | XMS_ITS | Encounter Summary ---
:1965 Author Organization [facility] Address [address] [place] [address] Care Team Providers Name Role Phone Unavailable Primary Care Provider Unavailable Reason for Referral Outpatient (Routine) - Closed Specialty Diagnoses / Procedures Referred By Contact Refer red To Contact Endocrinology Apollo Ty M.D. [facility] [address] [place] [phone] Referral ID Status Reason Start Date Expiration Date Visits Requ ested Visits Authorized [id number] Closed 06/03/2018 06/03/2019 1 1 Scheduling Instructions OK to overbook for a short return visit Reason for Visit Outpatient (Routine) - Closed Specialty Diagnoses / Referred By Contact Referred To Contact Procedures Reproductive Diagnoses Osteopenia Rah Soliz M.D. [facility] Endocrinology and [address] [place] [address] / [place], [place] Endocrinology [phone] Referral ID Status Reason Start Date Expiration Date Visits Requ ested Visits Authorized [id number] Closed 05/31/2018 05/31/2019 1 1 Encounter Details Date Type Department Care Team Description 06/03/2018 Comprehensive Visit Division of Rah Soliz M.D. [address] [place] [phone] Osteoporosis (Primary Dx); Endocrinology in Apollo Ty M.D. [address] [place] [phone] Osteopenia; Edward, Hyperparathyroi dism Renal Secondary (HCC) [place] [address] [place] [phone] Social History Tobacco Use Types Packs/Day Years Used Date Smoking Tobacco: Never Smokeless Tobacco: Never Alcohol Habits Answer Date Recorded How often do you have a drink containing 4 or more times a w citizen [place] 05/12/2021 alcohol? How many drinks containing alcohol [...] 05/12/2021 relatives? How often do you attend adventism or druze Never 05/12/2021 services? Do you belong to any clubs or organizations such No 05/12/2021 as adventism groups, unions, fraternal or athletic groups, or [...] documented as of this encounter Consult Notes Apollo Ty M.D., M.S. - 06/03/2018 2:45 PM CDT [facility] Endocrinology, Diabetes, and Nutrition Osteoporosis Clinic Date of Visit: 06/03/2018 Chief Complaint: New consultation for osteoporosis History of Present Illness: Tyler Morocho is a 52 y.o. 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 Osteoporosis was diagnosed by DEXA scan in May 2011 showing T-score of - 3.1 in the left femoral neck, -2.9 in the right femur neck and -2.8 in lumbar spine. He was started on Fosamax 70 mg Q weekly since then from transplant team. He has not seeing gold leaf layer until today. He has no history of fracture in his life. He does not have kidney stones in the past, he is on long-term prednisone 5 mg as immunosuppressant therapy. He has not been on anticoagulation therapy all anti epileptic therapy. While he was taking Fosamax, there was no side effect experienced including acid reflux or jaw necrosis. He is still taking calcium vitamin-D with total of daily calcium intake of 500 mg and vitamin-D 3 800 international units per day. Upon screening for secondary osteoporosis, he has endorsed decreased in libido and morning erections. He feels like he has sexual performance has being low even prior to renal transplant. He has never been on testosterone replacement therapy so far. He is adopted so unclear his family history Diet: Weight has been stable Exercise: Weight bearing exercise performed Fall prevention discussed. Risk factors identified to be low The following portions of the patient's history were reviewed and updated as appropriate: allergies,current medications, family history, medical history, social history, surgical history and problem list. No past medical history on file. Review of systems: 10 point ROS completed and negative unless noted above. Objective: There were no vitals taken for this visit. Physical Exam: Constitutional: Not in acute distress. Well developed. Eyes: No icterus, no conjunctival erythema. Cardiac: Regular pulses, 2+ peripherally. No edema Pulmonary: No increased work of breathing. Musculoskeletal: Spine palpated with no focal tenderness, no stepoffs. Neurological: Gait is grossly intact. Psychiatric: Appropriate judgement and mood. Pertinent labs: Results from last 7 days Lab Units 05/31/18 0627 SODIUM mmol/L 144 POTASSIUM mmol/L 5.0 CREATININE mg/dL 1.64* CRTS1 EGFR NON BLACK mL/min/BSA 48* CALCIUM mg/dL 9.7 Results from last 7 days Lab Units 05/31/18 0627 MAGNESIUM mg/dL 2.1 DEXA 05/31/2018 EXAM: BMD BONE DENSITY SPINE HIPS ?? COMPARISON: Serial Comparisons ?? Left Total Hip results: 06/08/2011 BMD: 0.729 g/cm(sq), T Score: -2.2 05/21/2012 BMD: 0.755 g/cm(sq), T Score: -2.0 05/08/2014 BMD: 0.782 g/cm(sq), T Score: -1.8 05/23/2016 BMD: 0.798 g/cm(sq), T Score: -1.7 05/31/2018 BMD: 0.760 g/cm(sq), T Score: -2.0 Change vs. Previous (difference): -0.038 g/cm(sq) Change vs. Previous (%): -4.8% ?? The least significant change in BMD for the Total Hip is 0.036 g/cm(sq) ?? The absolute BMD change from previous, 0.038g/cm(sq), is greater than the least significant change. The absolute BMD change from baseline, 0.031g/cm(sq), is less than the least significant change. ?? Right Total Hip results: 06/08/2011 BMD: 0.764 g/cm(sq), T Score: -1.9 05/21/2012 BMD: 0.779 g/cm(sq), T Score: -1.8 05/08/2014 BMD: 0.821 g/cm(sq), T Score: -1.5 05/23/2016 BMD: 0.838 g/cm(sq), T Score: -1.3 05/31/2018 BMD: 0.779 g/cm(sq), T Score: -1.8 Change vs. Previous (difference): -0.059 g/cm(sq) Change vs. Previous (%): -7.0% ?? The least significant change in BMD for the Total Hip is 0.036 g/cm(sq) ?? The absolute BMD change from previous, 0.059g/cm(sq), is greater than the least significant change. The absolute BMD change from baseline, 0.015g/cm(sq), is less than the least significant change. ?? Combined Total Hip results: 06/08/2011 BMD: 0.747 g/cm(sq), T Score: -2.1 05/21/2012 BMD: 0.767 g/cm(sq), T Score: -1.9 05/08/2014 BMD: 0.802 g/cm(sq), T Score: -1.7 05/23/2016 BMD: 0.818 g/cm(sq), T Score: -1.5 05/31/2018 BMD: 0.770 g/cm(sq), T Score: -1.9 Change vs. Previous (difference): -0.049 g/cm(sq) Change vs. Previous (%): -5.9% ?? The least significant change in BMD for the Total Hip is 0.036 g/cm(sq) ?? The absolute BMD change from previous, 0.049g/cm(sq), is greater than the least significant change. The absolute BMD change from baseline, 0.023g/cm(sq), is less than the least significant change. ?? Spine results: 06/08/2011 BMD: 0.925 g/cm(sq), T Score: -2.1 05/21/2012 BMD: 1.002 g/cm(sq), T Score: -1.5 05/08/2014 BMD: 1.062 g/cm(sq), T Score: -1.0 05/23/2016 BMD: 1.036 g/cm(sq), T Score: -1.2 05/31/2018 BMD: 0.972 g/cm(sq), T Score: -1.7 Change vs. Previous (difference): -0.064 g/cm(sq) Change vs. Previous (%): -6.2% ?? The least significant change in BMD for the Spine is 0.041 g/cm(sq) ?? The absolute BMD change from previous, 0.064g/cm(sq), is greater than the least significant change. The absolute BMD change from baseline, 0.047g/cm(sq), is greater than the least significant change. FINDINGS: Left Hip [single scan]: ?? Femur Neck: BMD = 0.695 g/cm (sq) T-score = -2.5 Z-score = -2.2 ?? Total Hip: BMD = 0.760 g/cm (sq) T-score = -2.0 Z-score = -2.0 ?? Right Hip [single scan]: ?? Femur Neck: BMD = 0.705 g/cm (sq) T-score = -2.4 Z-score = -2.1 ?? Total Hip: BMD = 0.779 g/cm (sq) T-score = -1.8 Z-score = -1.9 ?? Lumbar Spine [single scan]: L1: BMD = 0.890 g/cm (sq), T-score =-2.0, Z-score =-2.1 L2: BMD = 0.972 g/cm (sq), T-score =-2.0, Z-score =-2.1 L3: BMD = 1.052 g/cm (sq), T-score =-1.3, Z-score =-1.5 ?? Total Lumbar Spine: BMD = 0.972 g/cm (sq) T-score = -1.7 Z-score = -1.8 ?? 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 It is very likely that the etiology of osteoporosis is from metabolic bone disease due to ESRD status and secondary hype rparathyroidism. He gave me a story of hypogonadism, which could be a contributing factor as well. The osteoporosis has been managed by kidney transplantation team who have done a good job of starting anti resorptive therapy and now patient is on drug holiday. We would like to rule out other secondaryetiology including hypogonadism/hyperthyroidism/celiac or MM. The repeat DEXA scan result is as above. Upon comparison with DEXA scan down in 2015 when he was still on therapy, there is significant decrease more than what we would expect in both hips and lumbar spine as high as 7%. He is just off Fosamax for 1 year and there is should still be therapeutic effectin the body. The few explanations of this is either the accelerated bone turnover due to secondary hyperparathyroidism as evidenced by persistently elevated PTH but at goal as per KDIGO guidelines (could be much higher before 2010), or superimposed other secondary reasons as explained above. Re-calculation of FRAX at this time is 4.7%/0.2% that can be dictated into low risk of fracture in the short run, however, the fast bone loss is concerning and would benefit from intervention. Recommendations: ?? Obtain SPEP, AM testosterone with bioavailability, celiac screen, BS-AKP (CTX is not reliable in the setting of CKD) ?? If testosterone is low, then it would be reasonable to treat with TRT and monitor BMD in a year with DEXA to see response ?? If testosterone is in good range, or he does not have response 1 year after replacement, then we would have evidence of accelerated bone turnover has made biphosphonate be cleared faster and it warrants continuous biphosphonate without interruption to stabilize BMD. ?? Continue fall precaution and weight bearing exercise ?? Continue Ca-Vit D supplement Will see the patient in 2 weeks after the blood tests as above in my fellow's continuity clinic. All questions were answered. Plan was discussed with supervising biztalk consultant Dr. Carlos Ty MD, MSc PGY-4 Endocrinology Fellow Pager: [phone] Efficiency Manager: [phone] Appointment: [phone] Tucker Gonzalez M.D. - 06/03/2018 12:00 AM CDT SUBJECTIVE Supervisory note for Dr. Ty. REASON FOR CONSULT Osteoporosis. ASSESSMENT / PLAN #1 End-stage renal disease secondary to IgA nephropathy #2 Status post preemptive living unrelated donor kidney transplant 2010 #3 Osteoporosis #4 Secondary hyperparathyroidism Mr. Morocho has a low bone density (left femur neck T-score -2.5), but has not had fractures. Alendronate was prescribed after the kidney transplant in 2010, and was continued until 2017. Although Mr. Morocho had a 9% increase in his hip density readings between 2010 and 2016, he had a 6.2% decrease in his hip density during the past [address] Ty is conducting an evaluation to examine for secondary causes of bone loss/osteoporosis, and will review the management of the osteoporosis when the results of these studies are available. CT CT Job ID: [id number] documented in this encounter Plan of Treatment Scheduled Referrals Name Type Priority Associated Order Schedule Diagnoses Endocrinology office Outpatient Referral Routine Expected: visit (clinic) 06/18/2018 (Approximate), Expires: 06/03/2021 documented as of this encounter Results Electrophoresis, Protein (06/06/2018 7:37 AM CDT) Component Value Ref Test Analysis Performed At [facility] gist Range Method Time Signature Total Protein, 7.1 6.3 - 06/06/2018 [facility] S 7.9 g/dL 9:14 AM CDT LABORATORIES - [facility] Albumin 4.1 3.4 - 06/06/2018 [facility] 4.7 g/dL 3:51 PM CDT LABORATORIES - [facility] Alpha-1 0.2 0.1 - 06/06/2018 [facility] Globulin 0.3 g/dL 3:51 PM CDT LABORATORIES - [facility] Alpha-2 0.8 0.6 - 06/06/2018 [facility] Globulin 1.0 g/dL 3:51 PM CDT LABORATORIES - [facility] Beta-Globulin 1.0 0.7 - 06/06/2018 [facility] 1.2 g/dL 3:51 PM CDT LABORATORIES - [facility] Gamma-Globulin 1.1 0.6 - 06/06/2018 [facility] 1.6 g/dL 3:51 PM CDT LABORATORIES - [facility] A/G Ratio 1.33 06/06/2018 [facility] 3:51 PM CDT LABORATORIES - [facility] Impression No apparent 06/06/2018 [facility] monoclonal 3:51 PM CDT LABORATORIES - protein on [facility] electrophoresi s. Specimen Anatomical Collection Method Collection Time Receive d Time (Source) Location / / Volume Laterality Blood (Blood, 06/06/2018 7:37 AM 06/06/20 18 8:35 Venous) CDT AM CDT Apollo Ty M.D. LAB BLOOD ADD-ON Performing Organization Address City/[facility]/ZIP Code Phon e Number ED [facility] LABORATORIES - [address] [place] [phone] [facility] Celiac Disease Serology [place] (06/06/2018 7:37 AM CDT) Component Value Ref Test Analysis Performed At Patholo gist Range Method Time Signature Immunoglobulin A 321 61 - 06/06/2018 [facility] (IgA), S 356 10:30 AM LABORATORIES - mg/dL CDT [facility] Celiac Disease Negative serology. Celiac di sease unlikely. However, approximately 10% of 06/06/2018 [facility] Interpretation patients with celiac disease are seronegative. Also, patients who are already 10:44 PM LABORATORIES - adhering to a gluten-free diet may be seronegative. If kishan iac disease is CDT [facility] clinically suspected, consider HLA-DQ typing. CAMPUS Specimen Anatomical Collection Method Collection Time Receive d Time (Source) Location / / Volume Laterality Blood (Blood, 06/06/2018 7:37 AM 06/06/20 18 8:35 Venous) CDT AM CDT Apollo Ty M.D. LAB BLOOD ADD-ON Performing Organization Address City/[facility]/ZIP Code Phon e Number [facility] LABORATORIES - [address] [place] [phone] [facility] Bone Alkaline Phosphatase (06/06/2018 7:37 AM CDT) P athologist Signature Bone Alkaline 7.4 0 - 20 06/06/2018 [facility] Phosphatase, S mcg/L 10:43 AM CDT [facility] Specimen Anatomical Collection Method Collection Time Receive d Time (Source) Location / / Volume Laterality Blood (Blood, 06/06/2018 7:37 AM 06/06/20 18 9:57 Venous) CDT AM CDT Apollo Ty M.D. LAB BLOOD ADD-ON Performing Organization Address City/[facility]/ZIP [facility] Phon e Number [facility] [address] [place] [address] [facility] Cortisol (06/06/2018 7:37 AM CDT) P athologist Signature Cortisol AM 13 7 - 25 06/06/2018 [facility] Result mcg/dL 8:44 AM CDT [facility] Specimen Anatomical Collection Method Collection Time Receive d Time (Source) Location / / Volume Laterality Blood (Blood, 06/06/2018 7:37 AM 06/06/20 18 7:43 Venous) CDT AM CDT Apollo Ty M.D. LAB BLOOD ADD-ON Performing Organization Address City/[facility] Phon e Number [facility] LABORATORIES - [address] [place] [address] [facility] S-TSH (Thyroid-Stimulating Hormone - Sensitive) (06/06/2018 7:37 AM CDT) athologist Signature TSH, Sensitive 4.1 0.3 - 4.2 06/06/2018 [facility] mIU/L 8:43 AM CDT [facility] - [facility] Specimen Anatomical Collection Method Collection Time Receive d Time (Source) Location / / Volume Laterality Blood (Blood, 06/06/2018 7:37 AM 06/06/20 18 7:43 Venous) CDT AM CDT Apollo Ty M.D. LAB BLOOD ADD-ON Performing Organization Address City/[facility] Phon e Number [facility] LABORATORIES - [address] [place] [address] [facility] Testosterone, Total and Bioavailable (06/06/2018 7:37 AM CDT) athologist Signature Testosterone, 116 50 - 190 06/07/2018 [facility] Bioavailable, S ng/dL 6:22 PM CDT [facility] Comment: ----ADDITIONAL INFORMATION---- Testing performed by Differential Precip itation. This test was developed and its performa nce characteristics determined by [facility] in a manner consistent with CLIA requirements. This test has not been cleared or approved by the [place] and Drug Administration. Testosterone, Total by 385 240 - 950 ng/dL 06/07/2018 7:01 AM [facility] Mass Spectrometry, Serum CDT [facility] Comment: ----ADDITIONAL INFORMATION---- Testing performed by Liquid Chromatograp hy-Tandem Mass Spectrometry (LC-MS/MS). This test was developed and its performa nce characteristics determined by [facility] in a manner consistent with CLIA requirements. This test has not been cleared or approved by the [place] d and Drug Administration. Specimen Anatomical Collection Method Collection Time Receive d Time (Source) Location / / Volume Laterality Blood (Blood, 06/06/2018 7:37 AM 06/06/20 18 9:47 Venous) CDT AM CDT Apollo Ty M.D. LAB BLOOD NON ADD-ON Performing Organization Address City/State/ZIP Code Phon e Number [facility] [address] [place] [phone] [facility] documented in this encounter Visit Diagnoses Diagnosis Osteoporosis - Primary Osteopenia Hyperparathyroidism Renal Secondary (HCC ) documented in this encounter
--- OUTSIDE RECORDS SUMMARY | 2022-08-23 10:05 | XMS_ITS | Encounter Summary ---
:1965 Author Organization [facility] Address [address] [place] [address] Care Team Providers Name Role Phone Unavailable Primary Care Provider Unavailable Encounter Details Date Type Department Care Team Description 03/23/2018 Abstract DATA ABSTRACTION Provider, Historical Social History Tobacco Use Types Packs/Day Years Used Date Smoking Tobacco: Never Alcohol Habits Answer Date Recorded How often do you have a drink containing 4 or more times a w [place] 05/12/2021 alcohol? How many drinks containing alcohol [...] How often do you attend bahai or roman catholic Never 05/12/2021 services? Do you belong [...]
--- OUTSIDE RECORDS SUMMARY | 2022-08-23 10:06 | XMS_ITS | Encounter Summary ---
:1965 Author Organization [facility] Address [address] [place] [address] Care Team Providers Name Role Phone Unavailable Primary Care Provider Unavailable Encounter Details Date Type Department Care Team Description 09/29/2011 Hospital Encounter HX RST CRS FLOOR Lanre Lopes, PRACTICE P.A.-C., M.S. [address] [place] [address] (Wo rk) Social History Tobacco Use Types Packs/Day Years Used Date Smoking Tobacco: Never Assessed Alcohol Habits Answer Date Recorded How often do you have a drink containing 4 or more times a w [place] 05/12/2021 alcohol? How many drinks containing [...] How often do you attend sabianism or yazidi Never 05/12/2021 services? Do you [...] or slept in a fpc (including now)? Sex Assigned at Date Recorded Male 05/27/2018 8:52 AM CDT documented as of this encounter Plan of Treatment Not on filedocumented as of this encounter Visit Diagnoses Not on filedocumented in this encounter Additional Health Concerns Assessment Noted Time PHQ-9 Depression Total Score: 5 01/04/2011 8:09 AM CDT documented as of this encounter
--- OUTSIDE RECORDS SUMMARY | 2022-08-23 10:06 | XMS_ITS | Encounter Summary ---
:1965 Author Organization [facility] Address [address] [place] [address] Care Team Providers Name Role Phone Unavailable Primary Care Provider Unavailable Encounter Details Date Type Department Care Team Description 05/23/2016 Hospital Encounter HX NO MAPPING Social History Tobacco Use Types Packs/Day Years [...] 05/12/2021 relatives? How often do you attend jehovah's witness or buddhism Never 05/12/2021 services? Do you belong to any clubs or organizations such No 05/12/2021 as jehovah's witness groups, unions, fraternal or athletic groups, or [...] Sign Reading Time Taken Comments Blood Pressure 133/78 05/23/2016 4:10 PM CDT Pulse 81 05/23/2016 4:10 PM CDT Temperature - - Respiratory Rate 16 05/23/2016 3:30 PM CDT Oxygen Saturation - - Inhaled Oxygen Concentration - - Weight - - Height - - Body Mass Index - - documented in this encounter Medications at Time [...]
--- OUTSIDE RECORDS SUMMARY | 2022-08-23 10:06 | XMS_ITS | Encounter Summary ---
:1965 Author Organization [facility] Address [address] [place] [address] Care Team Providers Name Role Phone Unavailable Primary Care Provider Unavailable Encounter Details Date Type Department Care Team Description 02/07/2011 Abstract [facility] and Clinical Coordinator, Hermilo Smith in [place], [place] [address] [place] [phone] Social History Tobacco Use Types Packs/Day [...] 05/12/2021 relatives? How often do you attend scientologist or faith Never 05/12/2021 services? Do you belong to any clubs or organizations such No 05/12/2021 as scientologist groups, unions, fraternal or athletic groups, or [...]
--- OUTSIDE RECORDS SUMMARY | 2022-08-23 10:06 | XMS_ITS | Encounter Summary ---
:1965 Author Organization [facility] Address [address] [place] [address] Care Team Providers Name Role Phone Unavailable Primary Care Provider Unavailable Encounter Details Date Type Department Care Team Description 05/21/2013 Abstract [facility] and Clinical Coordinator, [facility] in [place], [place] [address] [place] [address] Social History Tobacco Use Types Packs/Day Years Used Date Smoking Tobacco: Never Assessed Alcohol Habits Answer Date Recorded How often do you have a drink containing 4 or more times a w [place] 05/12/2021 alcohol? How many drinks containing alcohol [...] How often do you attend congregational or religion Never 05/12/2021 services? Do you [...] or slept in a snf (including now)? Sex Assigned at Date Recorded Male 05/27/2018 8:52 AM CDT documented as of this encounter Plan of Treatment Not on filedocumented as of this encounter Visit Diagnoses Not on filedocumented in this encounter Additional Health Concerns Assessment Noted Time PHQ-9 Depression Total Score: 1 05/21/2013 2:10 PM CDT documented as of this encounter
--- OUTSIDE RECORDS SUMMARY | 2022-08-23 10:06 | XMS_ITS | Encounter Summary ---
:1965 Author Organization [facility] Address [address] [place] [address] Care Team Providers Name Role Phone Unavailable Primary Care Provider Unavailable Encounter Details Date Type Department Care Team Description 05/18/2014 [facility] and Clinical Coordinator, Hermilo [facility] in [place], [place] [address] [place] [address] Social History Tobacco Use Types Packs/Day Years Used Date Smoking Tobacco: Never Assessed Alcohol Habits Answer Date Recorded How often do you have a drink containing 4 or more times a w [place] 05/12/2021 alcohol? How many drinks containing alcohol [...] How often do you attend adventist or latter-day Never 05/12/2021 services? Do you [...]
--- OUTSIDE RECORDS SUMMARY | 2022-08-23 10:06 | XMS_ITS | Encounter Summary ---
:1965 Author Organization [facility] Address [address] [place] [address] Care Team Providers Name Role Phone Unavailable Primary Care Provider Unavailable Encounter Details Date Type Department Care Team Description 11/18/2013 Hospital Encounter HX NO MAPPING Social History Tobacco Use Types Packs/Day Years Used Date Smoking Tobacco: Never Assessed Alcohol Habits Answer Date Recorded How often do you have a drink containing 4 or more times a w [place] 05/12/2021 alcohol? How many drinks containing alcohol [...] How often do you attend confucianism or congregational Never 05/12/2021 services? Do you [...]
--- OUTSIDE RECORDS SUMMARY | 2022-08-23 10:06 | XMS_ITS | Encounter Summary ---
:1965 Author Organization [facility] Address [address] [place] [address] Care Team Providers Name Role Phone Unavailable Primary Care Provider Unavailable Encounter Details Date Type Department Care Team Description 12/11/2007 - 12/18/2007 Hospital Encounter HX NO MAPPING Social History [...] How often do you attend nondenominational or methodist Never 05/12/2021 services? Do you [...]
--- OUTSIDE RECORDS SUMMARY | 2022-08-23 10:06 | XMS_ITS | Encounter Summary ---
:1965 Author Organization [facility] Address [address] [place] [address] Care Team Providers Name Role Phone Unavailable Primary Care Provider Unavailable Encounter Details Date Type Department Care Team Description 08/30/2007 - Hospital Encounter HX RST INFUSION Arnadu Coon, 09/06/2007 THERAPY R.N. [address] [place] [address] Social History Tobacco Use Types Packs/Day Years Used Date Smoking Tobacco: Never Assessed Alcohol Habits Answer Date Recorded How often do you have a drink containing 4 or more times a w [place] 05/12/2021 alcohol? How many drinks containing alcohol [...] How often do you attend yazidi or spiritism Never 05/12/2021 services? Do you [...] slept in a senior living (including now)? Sex Assigned at Date Recorded Male 05/27/2018 8:52 AM CDT documented as of this encounter Plan of Treatment Not on filedocumented as of this encounter Visit Diagnoses Not on filedocumented in this encounter
--- OUTSIDE RECORDS SUMMARY | 2022-08-23 10:06 | XMS_ITS | Encounter Summary ---
:1965 Author Organization [facility] Address [address] [place] [address] Care Team Providers Name Role Phone Unavailable Primary Care Provider Unavailable Encounter Details Date Type Department Care Team Description 09/10/2007 Hospital Encounter HX NO MAPPING Social History Tobacco Use Types Packs/Day Years Used Date Smoking Tobacco: Never Assessed Alcohol Habits Answer Date Recorded How often do you have a drink containing 4 or more times a w [place] 05/12/2021 alcohol? How many drinks containing alcohol [...] How often do you attend jewish or episcopalian Never 05/12/2021 services? Do you belong to [...] slept in a care home (including now)? Sex Assigned at Date Recorded Male 05/27/2018 8:52 AM CDT documented as of this encounter Plan of Treatment Not on filedocumented as of this encounter Visit Diagnoses Not on filedocumented in this encounter
--- OUTSIDE RECORDS SUMMARY | 2022-08-23 10:06 | XMS_ITS | Encounter Summary ---
:1965 Author Organization [facility] Address [address] [place] [address] Care Team Providers Name Role Phone Unavailable Primary Care Provider Unavailable Encounter Details Date Type Department Care Team Description 05/30/2011 - Hospital Encounter HX RST INFUSION Felix, Rama 06/06/2011 THERAPY M, R.N. [address] [place] [address] Social History Tobacco Use Types Packs/Day Years [...] How often do you attend orthodox or moravian Never 05/12/2021 services? Do you [...]
--- OUTSIDE RECORDS SUMMARY | 2022-08-23 10:06 | XMS_ITS | Encounter Summary ---
:1965 Author Organization [facility] Address [address] [place] [address] Care Team Providers Name Role Phone Unavailable Primary Care Provider Unavailable Encounter Details Date Type Department Care Team Description 12/11/2007 Hospital Encounter HX NO MAPPING Alexandra Salgado Social History Tobacco Use Types Packs/Day Years Used Date Smoking Tobacco: Never Assessed Alcohol Habits Answer Date Recorded How often do you have a drink containing 4 or more times a w [place] 05/12/2021 alcohol? How many drinks containing alcohol [...] 05/12/2021 relatives? How often do you attend zoroastrian or oriental orthodox Never 05/12/2021 services? Do you belong to any clubs or organizations such No 05/12/2021 as zoroastrian groups, unions, fraternal or athletic groups, or [...]
--- OUTSIDE RECORDS SUMMARY | 2022-08-23 10:06 | XMS_ITS | Encounter Summary ---
:1965 Author Organization [facility] Address [address] [place] [address] Care Team Providers Name Role Phone Unavailable Primary Care Provider Unavailable Encounter Details Date Type Department Care Team Description 11/29/2011 Abstract [facility] and Clinical Coordinator, Hermilo [facility] in [place], [place] [address] [place] [address] Social History Tobacco Use Types Packs/Day [...] How often do you attend anglican or cheondoism Never 05/12/2021 services? Do you [...]
--- OUTSIDE RECORDS SUMMARY | 2022-08-23 10:06 | XMS_ITS | Encounter Summary ---
:1965 Author Organization [facility] Address [address] [place] [address] Care Team Providers Name Role Phone Unavailable Primary Care Provider Unavailable Encounter Details Date Type Department Care Team Description 06/19/2011 - Hospital Encounter HX RST INFUSION EstefaniaBaldomero 06/26/2011 THERAPY L, R.N. Social History Tobacco Use Types Packs/Day Years Used Date Smoking Tobacco: Never Assessed Alcohol Habits Answer Date Recorded How often do you have a drink containing 4 or more times a w [place] 05/12/2021 alcohol? How many drinks containing alcohol [...] How often do you attend congregation or advent Never 05/12/2021 services? Do you [...]
--- OUTSIDE RECORDS SUMMARY | 2022-08-23 10:06 | XMS_ITS | Encounter Summary ---
:1965 Author Organization [facility] Address [address] [place] [address] Care Team Providers Name Role Phone Unavailable Primary Care Provider Unavailable Encounter Details Date Type Department Care Team Description 05/24/2016 Abstract [facility] Transplantation and Clinical Coordinator, Hermilo [facility] in [place], [place] [address] [place] [address] Social History Tobacco Use Types Packs/Day Years Used Date Smoking Tobacco: Never Assessed Alcohol Habits Answer Date Recorded How often do you have a drink containing 4 or more times a w [place] salish 05/12/2021 alcohol? How many drinks containing alcohol [...] How often do you attend evangelical or mosque Never 05/12/2021 services? Do you [...]
--- OUTSIDE RECORDS SUMMARY | 2022-08-23 10:06 | XMS_ITS | Encounter Summary ---
:1965 Author Organization [facility] Address [address] [place] [address] Care Team Providers Name Role Phone Unavailable Primary Care Provider Unavailable Encounter Details Date Type Department Care Team Description 05/23/2012 Abstract [facility] Transplantation and Clinical Coordinator, Hermilo [facility] in [place], [place] [address] [place] [address] Social History Tobacco Use Types Packs/Day Years Used Date Smoking Tobacco: Never Assessed Alcohol Habits Answer Date Recorded How often do you have a drink containing 4 or more times a w [place] 05/12/2021 alcohol? How many drinks containing alcohol [...] How often do you attend adventist or anglican Never 05/12/2021 services? Do you [...]
--- OUTSIDE RECORDS SUMMARY | 2022-08-23 10:06 | XMS_ITS | Encounter Summary ---
:1965 Author Organization [facility] Address [address] [place] [address] Care Team Providers Name Role Phone Unavailable Primary Care Provider Unavailable Encounter Details Date Type Department Care Team Description 12/18/2007 Hospital Encounter HX NO MAPPING Alexandra Salgado Social History Tobacco Use Types Packs/Day Years Used Date Smoking Tobacco: Never Assessed Alcohol Habits Answer Date Recorded How often do you have a drink containing 4 or more times a w [place] 05/12/2021 alcohol? How many drinks containing alcohol [...] How often do you attend yazidi or jehovah's witness Never 05/12/2021 services? Do [...]
--- OUTSIDE RECORDS SUMMARY | 2022-08-23 10:06 | XMS_ITS | Encounter Summary ---
:1965 Author Organization [facility] Address [address] [place] [address] Care Team Providers Name Role Phone Unavailable Primary Care Provider Unavailable Encounter Details Date Type Department Care Team Description 06/01/2011 - Hospital Encounter HX RST UNIT 10-4 SPECIAL 06/02/2011 Social History Tobacco Use Types Packs/Day Years Used Date Smoking Tobacco: Never Assessed Alcohol Habits Answer Date Recorded How often do you have a drink containing 4 or more times a w [place] 05/12/2021 alcohol? How many drinks containing alcohol [...] How often do you attend latter-day or synagogue Never 05/12/2021 services? Do you [...] Comments Diagnosis DX CHEST AP OR PA AND Routine 06/01/2011 4:29 PM Results for this LATERAL 2 VIEWS CDT procedure ar e in the results section. US EXTREMITY VEINS Routine 06/01/2011 4:11 PM Res ults for this CDT procedure are i n the results section. NM LUNG VENTILATION Routine 06/01/2011 3:14 PM Re sults for this AND PERFUSION CDT procedure are in the results section. documented in this encounter Results DX Chest AP or PA and Lateral 2 Views (06/01/2011 4:29 PM CDT) Anatomical Region Laterality Modality Chest N/A Radiographic Imaging Specimen (Source) Anatomical Collection Method Collection Time Re ceived Time Location / / Volume Laterality 06/01/2011 4:29 PM CDT Narrative 06/01/2011 4:35 PM CDT 01-Jun-2011 16:29:00 ??Exam: Chest-- 2 Views Indications: SOB ORIGINAL REPORT - 01-Jun-2011 16:35:00 Chest; 2 views: Compared with 05/22/2011. The right centr al line has been removed. The atelectasis or infiltrates on the prior exam have resolved. The lungs are now clear. Overall, negative chest. Electronically signed by: ?? Ousmane Dunlap MD ?? [id number] 01-Jun-2011 16: 35 Procedure Note Paul Dunlap M.D. - 12/22/2017Formatt ing of this note might be different from the original. 01-Jun-2011 16:29:00 Exam: Chest-- 2 Vie ws Indications: SOB ORIGINAL REPORT - 01-Jun-2011 16:35:00 Chest; 2 views: Compared with 05/22/2011. The right centr al line has been removed. The atelectasis or infiltrates on the prior exam have resolved. The lungs are now clear. Overall, negative chest. Electronically signed by: Ousmane Dunlap MD [id number] 01-Jun-2011 16:35 Robert LOPEZ DIAGNOSTIC IMAGING PROCE REINA US Extremity Veins (06/01/2011 4:11 PM CDT) Anatomical Region Laterality Modality Vascular, Upper Extremity, Lower Extremity Ultrasound Specimen (Source) Anatomical Collection Method Collection Time Re ceived Time Location / / Volume Laterality 06/01/2011 4:11 PM CDT Narrative 06/01/2011 4:25 PM CDT 01-Jun-2011 16:11:00 ??Exam: US Extremity Veins Complete Indications: 10-303; PORT; 30175; ble- t achycardia unknown etiology ORIGINAL REPORT - 01-Jun-2011 16:25:00 US Extremity Duplex Scan Veins Complete with color and spectral Doppler analysis: The common femoral, upper deep femoral, femoral, and popliteal veins are widely patent bilaterally, without thrombus. The posterior tibial and peroneal veins were segmentally visualized bilaterally and are normal where seen. The great sapheno us veins bilaterally are patent and negative for thrombus. Electronically signed by: ?? CATALINA Domingo MD. ??[id number] 01-Jun-2011 16:25 Procedure Note Cori Domingo M.D. - 12/22/2017Formatt ing of this note might be different from the original. 01-Jun-2011 16:11:00 Exam: US Extremity Veins Complete Indications: 10-303; PORT; 11963; ble- t achycardia unknown etiology ORIGINAL REPORT - 01-Jun-2011 16:25:00 US Extremity Duplex Scan Veins Complete with color and spectral Doppler analysis: The common femoral, upper deep femoral, femoral, and popliteal veins are widely patent bilaterally, without thrombus. The posterior tibial and peroneal veins were segmentally visualized bilaterally and are normal where seen. The great saphenous veins bi laterally are patent and negative for thrombus. Electronically signed by: CATALINA Domingo MD. [id number] 01-Jun-2011 16:25 Robert LOPEZ US PROCEDURES NM Lung Ventilation and Perfusion (06/01/2011 3:14 PM CDT) Anatomical Region Laterality Modality Chest N/A Nuclear Medicine Specimen (Source) Anatomical Collection Method Collection Time Re ceived Time Location / / Volume Laterality 06/01/2011 3:14 PM CDT Impressions 06/01/2011 4:07 PM CDT Negative for pulmonary embolism ?? FINDINGS: Normal ventilation and ventila tory washout. No segmental perfusion defects. Linear band of relative photopenia in the left lung, corresponding to the left major fissure. No associated abnormalities on chest radiograph from 05/19/2011. ?? RADIOPHARMACEUTICAL: Intravenous technet ium MAA, inhaled xenon-133 RadNuc 99MTC-MAA, 4 millicurie RadNuc 133 Xenon, 17.2 millicurie Electronically signed by: ?? Enzo Smith ?? 01-Jun-2011 16:07 ?Manda GAVIRIA [phone] [id number] 01-Jun-2011 16:07 Narrative 06/01/2011 4:07 PM CDT 01-Jun-2011 15:14:00 ??Exam: NM Lung Scan V/Q Indications: tachycardia unknown etiolog y ORIGINAL REPORT - 01-Jun-2011 16:07:00 EXAM: Ventilation/perfusion study with t echnetium MAA and xenon-133 INDICATION: Tachycardia of unknown etiol ogy COMPARISON: No prior ventilation/perfusi on scans for comparison. Correlation is made with chest radiograph from 05/19/2011. Procedure Note Hernandez Smith M.D. - 12/22/2017For matting of this note might be different from the original. 01-Jun-2011 15:14:00 Exam: NM Lung Scan V/Q Indications: tachycardia unknown etiolog y ORIGINAL REPORT - 01-Jun-2011 16:07:00 EXAM: Ventilation/perfusion study with t echnetium MAA and xenon-133 INDICATION: Tachycardia of unknown etiol ogy COMPARISON: No prior ventilation/perfusi on scans for comparison. Correlation is made with chest radiograph from 05/19/2011. IMPRESSION: Negative for pulmonary embol ism FINDINGS: Normal ventilation and ventila tory washout. No segmental perfusion defects. Linear band of relative photopenia in the left lung, corresponding to the left major fissure. No associated abnormalities on chest radiograph from 05/19/2011. RADIOPHARMACEUTICAL: Intravenous technet ium MAA, inhaled xenon-133 RadNuc 99MTC-MAA, 4 millicurie RadNuc 133 Xenon, 17.2 millicurie Electronically signed by: Enzo Smith MD 01-Jun-2011 16:07 Luke jolley MD [phone] [id number] 01-Jun-2011 16:07 Robert Locke M.D. IMG NM PROCEDURES documented in this encounter Visit Diagnoses Not on filedocumented in this encounter Additional Health Concerns Assessment Noted Time PHQ-9 Depression Total Score: 5 01/04/2011 8:09 AM CDT documented as of this encounter
--- OUTSIDE RECORDS SUMMARY | 2022-08-23 10:06 | XMS_ITS | Encounter Summary ---
:[address] [facility] Address [address] [place] [address] Care Team Providers Name Role Phone Unavailable Primary Care Provider Unavailable Encounter Details Date Type Department Care Team Description 11/13/2007 Hospital Encounter HX NO MAPPING Provider, Historical Social History Tobacco Use Types [...] How often do you attend shinto or christian Never 05/12/2021 services? Do you belong to [...]
--- OUTSIDE RECORDS SUMMARY | 2022-08-23 10:06 | XMS_ITS | Encounter Summary ---
:1965 Author Organization [facility] Address [address] [place] [address] Care Team Providers Name Role Phone Unavailable Primary Care Provider Unavailable Encounter Details Date Type Department Care Team Description 12/16/2007 Hospital Encounter HX NO MAPPING Provider, Historical Social History Tobacco Use Types Packs/Day Years Used Date Smoking Tobacco: Never Assessed Alcohol Habits Answer Date Recorded How often do you have a drink containing 4 or more times a w [place] 05/12/2021 alcohol? How many drinks containing alcohol [...] How often do you attend religious or orthodoxy Never 05/12/2021 services? Do you [...]
--- OUTSIDE RECORDS SUMMARY | 2022-08-23 10:06 | XMS_ITS | Encounter Summary ---
:1965 Author Organization [facility] Address [address] [place] [address] Care Team Providers Name Role Phone Unavailable Primary Care Provider Unavailable Encounter Details Date Type Department Care Team Description 11/13/2011 Hospital Encounter HX RST CRS FLOOR Lanre Lopes, PRACTICE P.A.-C., M.S. [address] [place] [address] (Wo rk) Social History Tobacco Use Types [...] How often do you attend nondenominational or pentecostalism Never 05/12/2021 services? Do you [...]
--- OUTSIDE RECORDS SUMMARY | 2022-08-23 10:06 | XMS_ITS | Encounter Summary ---
:1965 Author Organization [facility] Address [address] [place] [address] Care Team Providers Name Role Phone Unavailable Primary Care Provider Unavailable Encounter Details Date Type Department Care Team Description 05/22/2011 - Hospital Encounter HX RST UNIT 10-2 05/25/2011 TRANSPLANT Social History Tobacco Use Types Packs/Day Years Used Date Smoking Tobacco: Never Assessed Alcohol Habits Answer Date Recorded How often do you have a drink containing 4 or more times a w [place] 05/12/2021 alcohol? How many drinks containing alcohol [...] How often do you attend lutheran or adventism Never 05/12/2021 services? Do you belong to [...] Procedure Name Priority Date/Time Associated Comments Diagnosis US KIDNEY TRANSPLANT Routine 05/22/2011 2:24 PM R esults for this DOPPLER CDT procedure are i n the results section. DX CHEST 1 VIEW Routine 05/22/2011 1:47 PM Result s for this CDT procedure are i n the results section. DX ABDOMEN 1 VIEW Routine 05/22/2011 1:47 PM Resu lts for this CDT procedure are i n the results section. RENAL PATHOLOGY Routine 05/22/2011 1:31 PM Result s for this CDT procedure are i n the results section. documented in this encounter Results US Kidney Transplant Doppler (05/22/2011 2:24 PM CDT) Anatomical Region Laterality Modality Abdomen, Pelvis, Renal N/A Ultrasound Specimen (Source) Anatomical Collection Method Collection Time Re ceived Time Location / / Volume Laterality 05/22/2011 2:24 PM CDT Narrative 05/22/2011 3:41 PM CDT 22-May-2011 14:24:00 ??Exam: US Renal Transplant w-doppler Indications: PACU; Renal Tx ??Day 0 ORIGINAL REPORT - 22-May-2011 15:41:00 US Renal Transplant with color and spect ral Doppler analysis: TRANSPLANT DATE: ??05/22/2011 BESS SCALE DATA Transplant Renal Length: ??10.6cm Parenchymal Echogenicity: Normal Renal Mass: ??No Hydronephrosis: ??No Peritransplant Fluid Collection: ??No DOPPLER DATA/IMPRESSION Intrarenal RI: ?? 0.62 Upper 0.65 Mid 0.65 Lower Intrarenal RI: ??Normal Iliac Artery Velocity: ?? 146cm/s (above anastomosis) 107cm/s (near anastomosis) Renal Artery Velocity: ?? 249cm/s Prox (anastomosis) 208cm/s Mid 105cm/s Distal Renal to Iliac Artery Velocity Ratio (RI R): 1.70 ?? Renal Artery: ??Normal ?? Renal Vein Patency: ??Patent Common Femoral Artery: Right: ??Triphasic (normal) Additional Comments/Comparison: Normal-a ppearing renal transplant in the right lower quadrant region. Normal intrarenal resistive indices. ?? Electronically signed by: ?? Lars Sweeney MD [id number] 22-May-2011 15:41 Procedure Note Lars Sweeney M.D. - 12/22/2017Fo rmatting of this note might be different from the original. 22-May-2011 14:24:00 Exam: US Renal Reynolds splant w-doppler Indications: PACU; Renal Tx Day 0 ORIGINAL REPORT - 22-May-2011 15:41:00 US Renal Transplant with color and spect ral Doppler analysis: TRANSPLANT DATE: 05/22/2011 BESS SCALE DATA Transplant Renal Length: 10.6cm Parenchymal Echogenicity: Normal Renal Mass: No Hydronephrosis: No Peritransplant Fluid Collection: No DOPPLER DATA/IMPRESSION Intrarenal RI: 0.62 Upper 0.65 Mid 0.65 Lower Intrarenal RI: Normal Iliac Artery Velocity: 146cm/s (above anastomosis) 107cm/s (near anastomosis) Renal Artery Velocity: 249cm/s Prox (anastomosis) 208cm/s Mid 105cm/s Distal Renal to Iliac Artery Velocity Ratio (RI R): 1.70 Renal Artery: Normal Renal Vein Patency: Patent Common Femoral Artery: Right: Triphasic (normal) Additional Comments/Comparison: Normal-a ppearing renal transplant in the right lower quadrant region. Normal intrarenal resistive indices. Electronically signed by: Lars Sweeney MD [id number] 22-May-2011 15:41 Howard Wu M.D. IMKenny US PROCEDURES DX Chest 1 View (05/22/2011 1:47 PM CDT) Anatomical Region Laterality Modality Chest N/A Radiographic Imaging Specimen (Source) Anatomical Collection Method Collection Time Re ceived Time Location / / Volume Laterality 05/22/2011 1:47 PM CDT Narrative 05/22/2011 1:50 PM CDT 22-May-2011 13:47:00 ??Exam: Post OP Chest Indications: end-stage renal disease; ki dney transplant, central line placement ORIGINAL REPORT - 22-May-2011 13:50:00 Chest; 1 view: New right IJ CVC tip in the mid SVC sinc e 05-19-2011. New left lower lobe consolidation and right lower lobe patchy infiltrate. Cardiomegaly and pulmonary venous hypertension have developed. The upper es ophagus is dilated and air filled. Negat lisa for PO purposes. No pneumothorax. Electronically signed by: ?? Tomas Penny MD. ??[id number] 22-May-2011 13: 50 ?Carissa Mejias MD [id number] 22-May-2011 13:50 Procedure Note Tj Penny M.D. - 12/22/2017Format ting of this note might be different from the original. 22-May-2011 13:47:00 Exam: Post OP Chest Indications: end-stage renal disease; ki dney transplant, central line placement ORIGINAL REPORT - 22-May-2011 13:50:00 Chest; 1 view: New right IJ CVC tip in the mid SVC sinc e 05-19-2011. New left lower lobe consolidation and right lower lobe patchy infiltrate. Cardiomegaly and pulmonary venous hypertension have developed. The upper esophagus is dilated and air filled. Negative for PO purposes. No pneumothorax. Electronically signed by: Tomas Penny MD. [id number] 22-May-2011 13:50 Carissa Mejias MD [id number] 22-May-2011 13:50 Howard LOPEZ DIAGNOSTIC IMAGING PROCE DURES DX Abdomen 1 View (05/22/2011 1:47 PM CDT) Anatomical Region Laterality Modality Abdomen N/A Radiographic Imaging Specimen (Source) Anatomical Collection Method Collection Time Re ceived Time Location / / Volume Laterality 05/22/2011 1:47 PM CDT Narrative 05/22/2011 1:58 PM CDT 22-May-2011 13:47:00 ??Exam: Post OP Abdomen Indications: end-stage renal disease; ki dney transplant ORIGINAL REPORT - 22-May-2011 13:58:00 Negative for postoperative purposes. Pel melani transplant ureteral stent. Electronically signed by: ?? Javier De Dios MD ??[id number] 22-May-2011 13:5 8 Procedure Note Pedro De Dios M.D. - 12/22/2017Formatt ing of this note might be different from the original. 22-May-2011 13:47:00 Exam: Post OP Abdom en Indications: end-stage renal disease; ki dney transplant ORIGINAL REPORT - 22-May-2011 13:58:00 Negative for postoperative purposes. Pel melani transplant ureteral stent. Electronically signed by: Javier De Dios MD [id number] 22-May-2011 13:58 Howard LOPEZ DIAGNOSTIC IMAGING PROCE DURES Renal Pathology (05/22/2011 1:31 PM CDT) Specimen Anatomical Collection Method Collection Time Receive d Time (Source) Location / / Volume Laterality 05/22/2011 1:31 PM 1 1:31 CDT PM CDT Narrative [facility] Buck VALENTINE - 05/22/2011 1:31 PM CDT ??05/22/2011 Renal Biopsy ([id number]) ? Requested By: ??Howard Wu M.D. ? ?[phone] ?DIAGNOSIS: ?Kidney, transplant, time-zero n eedle biopsy: ??Arteriosclerosis, mild. ??See comment. [place]: g0, t0, i0, v0, cg0, ct0, ci0, c v1, mm0, ah0, ptc0, ti0. ? DIAGNOSIS COMMENT: ?The biopsy is adequate for inte rpretation. ?There is no evidence of rejecti on. 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 ??He underwent living related donor kidney transplanta tion. ??This is a time-zero kidney biopsy. ?? 05/24/2011 08:03 Interpreted by: Katie Bates M.D. [phone] Report electronically signed by Katie Bates M.D. Transcribed by: vida 05/24/2011 07:29:06 SPECIMEN DESCRIPTION: A:Renal Allograft Needle Biopsy ?? TISSUE DESCRIPTION: ?LM: ??Received in 10% neutral b uffered formalin for light microscopy is one piece of tissue measu ring 1.6 x 0.05 cm (bisected). ??(DW) ?IF: ??Received in [place] for immu nofluorescent histology is one piece of tissue measuring 1.7 x 0.05 cm , which is held. ??(DW) ? MATERIAL RECEIVED: 1 - 10% formalin wet tissue 1 - [place] wet tissue IF HOLD SLIDE DISPOSITION: ? MICROSCOPIC DESCRIPTION: ?LIGHT MICROSCOPY: ??Tissue subm itted for light microscopy consists of renal cortex and medulla an d contains 11 glomeruli, none of which are globally sclerotic. ??The glomeruli do not show mesangial matrix expansion or mesangial hypercellularity. ??No glomerulitis or glomerular basement mem brane duplication or capillary loop thrombi are identified. ??No segmental scars are identified. ?Tubules and interstitium: ??Int erstitial fibrosis with tubular atrophy affects less than 5% of the coy pled cortex. ??There is no significant tubulointerstitial inflamma tory cell infiltrate identified. ?Vessels: ??At least 2-3 arterie s are present in the sample; none show endothelialitis. ??A focal artery shows mild fibrous intimal thickening. ??Arteriolar hyalinosis is not conspicuous. Procedure Note 12/15/2017 05/22/2011 Renal Biopsy ([id number]) Requested By: Howard Wu M.D. [phone] DIAGNOSIS: Kidney, transplant, time-zero needle bi opsy: Arteriosclerosis, mild. See comment. [place]: g0, t0, i0, v0, cg0, ct0, ci0, c v1, mm0, ah0, ptc0, ti0. DIAGNOSIS COMMENT: The biopsy is adequate for interpretati on. There is no evidence of rejection. 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 He underwent living related donor kidney transplanta tion. This is a time-zero kidney biopsy. 05/24/2011 08:03 Interpreted by: Katie Bates M.D. [phone] Report electronically signed by Katie Bates M.D. Transcribed by: vida 05/24/2011 07:29:06 SPECIMEN DESCRIPTION: A:Renal Allograft Needle Biopsy TISSUE DESCRIPTION: LM: Received in 10% neutral buffered fo rmalin for light microscopy is one piece of tissue measu ring 1.6 x 0.05 cm (bisected). (DW) IF: Received in [place] for immunofluoresc ent histology is one piece of tissue measuring 1.7 x 0.05 cm , which is held. (DW) MATERIAL RECEIVED: 1 - 10% formalin wet tissue 1 - [place] wet tissue IF HOLD SLIDE DISPOSITION: MICROSCOPIC DESCRIPTION: LIGHT MICROSCOPY: Tissue submitted for light microscopy consists of renal cortex and medulla an d contains 11 glomeruli, none of which are globally sclerotic. The gl omeruli do not show mesangial matrix expansion or mesangial hypercellularity. No glomerulitis or glomerular basement mem brane duplication or capillary loop thrombi are identified. No segmental scars are identified. Tubules and interstitium: Interstitial fibrosis with tubular atrophy affects less than 5% of the coy pled cortex. There is no significant tubulointerstitial inflamma tory cell infiltrate identified. Vessels: At least 2-3 arteries are pres ent in the sample; none show endothelialitis. A focal artery sh ows mild fibrous intimal thickening. Arteriolar hyalinosis is no t conspicuous. Howard Wu M.D. LAB PATH RENAL ORDERABLES Performing Organization Address City/State/ZIP Code Phon e Number [facility] - [address] [place] [id number] [address] [facility] documented in this encounter Visit Diagnoses Not on filedocumented in this encounter Additional Health Concerns Assessment Noted Time PHQ-9 Depression Total Score: 5 01/04/2011 8:09 AM CDT documented as of this encounter
--- OUTSIDE RECORDS SUMMARY | 2022-08-23 10:06 | XMS_ITS | Encounter Summary ---
:1965 Author Organization [facility] Address [address] [place] [address] Care Team Providers Name Role Phone Unavailable Primary Care Provider Unavailable Encounter Details Date Type Department Care Team Description 09/27/2011 Hospital Encounter HX NO MAPPING Social History [...] How often do you attend nondenominational or restorationism Never 05/12/2021 services? Do you belong to [...] Sign Reading Time Taken Comments Blood Pressure 112/72 09/27/2011 2:23 PM BIG DATA SOLUTIONS ARCHITECT Pulse 104 09/27/2011 2:23 PM BIG DATA SOLUTIONS ARCHITECT standing Temperature - - Respiratory Rate 16 09/27/2011 12:29 PM BIG DATA SOLUTIONS ARCHITECT Oxygen Saturation - - Inhaled Oxygen Concentration - - Weight - - Height 206.9 cm (6' 9.46) 09/27/2011 9:30 AM BIG DATA SOLUTIONS ARCHITECT Body Mass Index - - documented in this encounter Plan of Treatment Not on filedocumented as of this encounter Visit Diagnoses Not on filedocumented in this encounter Additional Health Concerns Assessment Noted Time PHQ-9 Depression Total Score: 5 01/04/2011 8:09 AM CDT documented as of this encounter
--- OUTSIDE RECORDS SUMMARY | 2022-08-23 10:06 | XMS_ITS | Encounter Summary ---
:1965 Author Organization [facility] Address [address] [place] [address] Care Team Providers Name Role Phone Unavailable Primary Care Provider Unavailable Encounter Details Date Type Department Care Team Description 01/05/2011 Hospital Encounter HX NO MAPPING Social History Tobacco Use Types Packs/Day Years Used Date Smoking Tobacco: Never Assessed Alcohol Habits Answer Date Recorded How often do you have a drink containing 4 or more times a w [place] 05/12/2021 alcohol? How many drinks containing alcohol [...] 05/12/2021 relatives? How often do you attend baptist or temple Never 05/12/2021 services? Do you belong to any clubs or organizations such No 05/12/2021 as baptist groups, unions, fraternal or athletic groups, or [...]
--- OUTSIDE RECORDS SUMMARY | 2022-08-23 10:06 | XMS_ITS | Encounter Summary ---
:1965 Author Organization [facility] Address [address] [place] [address] Care Team Providers Name Role Phone Unavailable Primary Care Provider Unavailable Encounter Details Date Type Department Care Team Description 05/27/2015 [facility] and Clinical Coordinator, [facility] in [place], [place] [address] [place] [address] Social History Tobacco Use Types Packs/Day [...] How often do you attend anabaptist or mu-ism Never 05/12/2021 services? Do you [...]
--- OUTSIDE RECORDS SUMMARY | 2022-08-23 10:06 | XMS_ITS | Encounter Summary ---
:1965 Author Organization [facility] Address [address] [place] [address] Care Team Providers Name Role Phone Unavailable Primary Care Provider Unavailable Encounter Details Date Type Department Care Team Description 02/07/2008 Hospital Encounter HX NO MAPPING Provider, Historical Social History Tobacco Use Types Packs/Day Years Used Date Smoking Tobacco: Never Assessed Alcohol Habits Answer Date Recorded How often do you have a drink containing 4 or more times a w [place] 05/12/2021 alcohol? How many drinks containing alcohol [...] How often do you attend presybeterian or latter-day Never 05/12/2021 services? Do you [...]
--- OUTSIDE RECORDS SUMMARY | 2022-08-23 10:06 | XMS_ITS | Encounter Summary ---
:1965 Author Organization [facility] Address [address] [place] [address] Care Team Providers Name Role Phone Unavailable Primary Care Provider Unavailable Encounter Details Date Type Department Care Team Description 11/14/2011 Hospital Encounter HX NO MAPPING Social History [...] How often do you attend alevism or sabianism Never 05/12/2021 services? Do you [...] Sign Reading Time Taken Comments Blood Pressure 120/80 11/14/2011 10:41 AM INTERNAL SPECIALIST Pulse - - Temperature - - Respiratory Rate 16 11/14/2011 10:41 AM INTERNAL SPECIALIST Oxygen Saturation - - Inhaled Oxygen Concentration - - Weight - - Height 168 cm (5' 6.14) 11/14/2011 6:17 AM INTERNAL SPECIALIST Body Mass Index - - documented in this encounter Plan of Treatment Not on filedocumented as of this encounter Visit Diagnoses Not on filedocumented in this encounter Additional Health Concerns Assessment Noted Time PHQ-9 Depression Total Score: 5 01/04/2011 8:09 AM CDT documented as of this encounter
--- OUTSIDE RECORDS SUMMARY | 2022-08-23 10:06 | XMS_ITS | Encounter Summary ---
:1965 Author Organization [facility] Address [address] [place] [address] Care Team Providers Name Role Phone Unavailable Primary Care Provider Unavailable Encounter Details Date Type Department Care Team Description 05/30/2011 Hospital Encounter HX NO MAPPING Rashaun Boogie, P.A. -C. Social History Tobacco Use Types Packs/Day Years Used Date Smoking Tobacco: Never Assessed Alcohol Habits Answer Date Recorded How often do you have a drink containing 4 or more times a w [place] 05/12/2021 alcohol? How many drinks containing alcohol [...] How often do you attend congregation or congregational Never 05/12/2021 services? Do you [...]
--- OUTSIDE RECORDS SUMMARY | 2022-08-23 10:06 | XMS_ITS | Encounter Summary ---
:1965 Author Organization [facility] Address [address] [place] [address] Care Team Providers Name Role Phone Unavailable Primary Care Provider Unavailable Encounter Details Date Type Department Care Team Description 05/22/2011 Abstract [facility], Trans[facility] and Clinical Coordinator, [facility] in [place], [place] [address] [place] [address] Social History Tobacco Use Types Packs/Day [...] How often do you attend caodaism or pentecostal Never 05/12/2021 services? Do you [...]
--- OUTSIDE RECORDS SUMMARY | 2022-08-23 10:06 | XMS_ITS | Encounter Summary ---
:1965 Author Organization [facility] Address [address] [place] [address] Care Team Providers Name Role Phone Unavailable Primary Care Provider Unavailable Encounter Details Date Type Department Care Team Description 05/20/2008 Hospital Encounter HX NO MAPPING Alexandra Salgado Social History Tobacco Use Types Packs/Day Years Used Date Smoking Tobacco: Never Assessed Alcohol Habits Answer Date Recorded How often do you have a drink containing 4 or more times a w [place] 05/12/2021 alcohol? How many drinks containing alcohol [...] How often do you attend mandaen or hindu Never 05/12/2021 services? Do you [...]
--- OUTSIDE RECORDS SUMMARY | 2022-08-23 10:06 | XMS_ITS | Encounter Summary ---
:1965 Author Organization [facility] Address [address] [place] [address] Care Team Providers Name Role Phone Unavailable Primary Care Provider Unavailable Encounter Details Date Type Department Care Team Description 06/20/2011 - Hospital Encounter HX RST INFUSION Dariela Tena, 06/27/2011 THERAPY C.N.P. Social History Tobacco Use Types Packs/Day Years [...] How often do you attend confucianism or druze Never 05/12/2021 services? Do you [...]
--- OUTSIDE RECORDS SUMMARY | 2022-08-23 10:06 | XMS_ITS | Encounter Summary ---
:1965 Author Organization [facility] Address [address] [place] [address] Care Team Providers Name Role Phone Unavailable Primary Care Provider Unavailable Encounter Details Date Type Department Care Team Description 05/21/2012 Hospital Encounter HX NO MAPPING Social History Tobacco Use Types Packs/Day Years Used Date Smoking Tobacco: Never Assessed Alcohol Habits Answer Date Recorded How often do you have a drink containing 4 or more times a w [place] 05/12/2021 alcohol? How many drinks containing alcohol [...] How often do you attend spiritism or restorationist Never 05/12/2021 services? Do you [...] Sign Reading Time Taken Comments Blood Pressure 119/68 05/21/2012 5:30 PM CDT Pulse 72 05/21/2012 5:30 PM CDT standing Temperature - - Respiratory Rate 16 05/21/2012 3:45 PM CDT Oxygen Saturation - - Inhaled Oxygen Concentration - - Weight 81.8 kg (180 lb 5.4 oz) 05/21/2012 11:14 AM CDT Height 186.1 cm (6' 1.27) 05/21/2012 11:14 AM CDT Body Mass Index 23.62 05/21/2012 11:14 AM CDT documented in this encounter Plan of Treatment Not on filedocumented as of this encounter Visit Diagnoses Not on filedocumented in this encounter
--- OUTSIDE RECORDS SUMMARY | 2022-08-23 10:06 | XMS_ITS | Encounter Summary ---
:1965 Author Organization [facility] Address [address] [place] [address] Care Team Providers Name Role Phone Unavailable Primary Care Provider Unavailable Encounter Details Date Type Department Care Team Description 06/09/2011 Hospital Encounter HX NO MAPPING Petra Segal R.N., RNC-LRN, CLC [address] [place], [place] [phone] (Wo rk) Social History Tobacco Use Types Packs/Day Years Used Date Smoking Tobacco: Never Assessed Alcohol Habits Answer Date Recorded How often do you have a drink containing 4 or more times a w [place] 05/12/2021 alcohol? How many drinks containing alcohol [...] How often do you attend zoroastrian or buddhist Never 05/12/2021 services? Do you [...]
--- OUTSIDE RECORDS SUMMARY | 2022-08-23 10:07 | XMS_ITS | Encounter Summary ---
:1965 Author Organization [facility] Address [address] [place] [address] Care Team Providers Name Role Phone Unavailable Primary Care Provider Unavailable Encounter Details Date Type Department Care Team Description 06/13/2007 Hospital Encounter HX NO MAPPING Alexandra Salgado [...] How often do you attend buddhist or worship Never 05/12/2021 services? Do you belong to [...]
--- OUTSIDE RECORDS SUMMARY | 2022-08-23 10:07 | XMS_ITS | Encounter Summary ---
:1965 Author Organization [facility] Address [address] [place] [address] Care Team Providers Name Role Phone Unavailable Primary Care Provider Unavailable Encounter Details Date Type Department Care Team Description 06/13/2007 - Hospital Encounter HX RST Loretta Prabhakar 06/20/2007 THERAPY Kenny, M.S.N., R.N., CCDS Social History Tobacco Use Types Packs/Day Years Used Date Smoking Tobacco: Never Assessed Alcohol Habits Answer Date Recorded How often do you have a drink containing 4 or more times a w [place] 05/12/2021 alcohol? How many drinks containing alcohol [...] How often do you attend spiritism or alevism Never 05/12/2021 services? Do you [...]
--- OUTSIDE RECORDS SUMMARY | 2022-08-23 10:07 | XMS_ITS | Encounter Summary ---
:1965 Author Organization [facility] Address [address] [place] [address] Care Team Providers Name Role Phone Unavailable Primary Care Provider Unavailable Encounter Details Date Type Department Care Team Description 06/28/2006 Hospital Encounter HX NO MAPPING Social History Tobacco Use Types Packs/Day Years Used Date Smoking Tobacco: Never Assessed Alcohol Habits Answer Date Recorded How often do you have a drink containing 4 or more times a w [place] 05/12/2021 alcohol? How many drinks containing [...] often do you attend oriental orthodox or gnosticism Never 05/12/2021 services? Do you [...]
--- OUTSIDE RECORDS SUMMARY | 2022-08-23 10:07 | XMS_ITS ---
:1965 Author Organization [facility] Address [address] [place] [address] Care Team Providers Name Role Phone Elsewhere, Pcp Primary Care Provider Unavailable [facility] [place]: [facility] KidneyTransplanted on 05/22/2011Marked as Active Follow-up on 05/22/2011 Kidney CoordinatorTXP POST KIDNEY NURSE TEAM 1 ROCHPhone: N/AFax: N/AEmail: N/A [place] Organ Diagnosis Organ Primary Contributory Kidney IgA Nephropathy Donor Information Organ ABO Source Meets Risk HLA Match Mismatches [facility] Criteria Left Kidney O Pos Live A: T cell Transplanted B: (Negative) DR: B cell (Negative) Left Kidney Donor Serology Results Anti-HBcAb HBsAg HBsAb HBV DNA Anti-HCV HAV No results on file No results on No results on No results No results on No results on file file on file file file Anti-HIV I/II Anti-HTLV Coccidioides Anti-CMV Quantiferon TB EBV Total No results on file I/II No results on No results No results on No results on No results on file on file file file file EBV IgG EBV IgM EBNA Measles Mumps Rubella No results on file No results on No results on No results No results on No results on file file on file file file Varicella Zoster HSV 1 HSV 2 Toxoplasma Cryptococcus Ag Histoplasma No results on file No results on No results on No results No results on No results on file file on file file file Strongyloides Schistosoma Trypanosoma RPR/VDRL Syphilis RSV No results on file No results on cruzi No results No results on No results on file No results on on file file file file SARS CoV-2 HBV NOEMI HCV NOEMI No results on file No results on file No results on file Care Team Name Role Phone Fax Email TXP POST KIDNEY Kidney Coordinator N/A N/A N/A NURSE TEAM 1 IMELDA Gutierrez, Transplant External [phone] [email or web address] Managing Industrial Automation Engineer [email or web address] Events Post-Transplant Pre-Transplant Admitted: 05/22/2011 Referred: 12/12/2007 Transplanted: 05/22/2011 Evaluation began: 01/18/2011 Discharged: 05/25/2011 Center waitlisted: 02/07/2011
== END 2022-08-23 09:39 | disposition home or self-care (01) ==
LOC: NPINS 09:38
PROVIDERS: PCP Internal Medicine; Visit Provider Internal Medicine Nephrology
DX: Z94.0 Kidney transplant status (principal); Z79.899 Other long term (current) drug therapy
CPT/HCPCS: 82043; 82310; 82565; 82570; 82947; 83735; 83970; 84100; 84132

== ENCOUNTER 2022-11-14 08:06 | Outpatient (CLI) | payer BC, SELFPAY ==
[2022-11-14 11:03] LABS: Creatinine* 1.3 mg/dL (0.5-1.5); Estimated Glomerular Filt Rate 64 ml/min
[2022-11-14 11:04] LABS: Glucose* 132 mg/dL (60-115); Magnesium* 2.1 mg/dL (1.5-2.6); Phosphorus* 2.9 mg/dL (2.5-4.5)
[2022-11-14 11:12] LABS: Creatinine Urine 47.6 mg/dL
[2022-11-14 11:15] LABS: Microalbumin Creatinine Ratio 20 mg/g (0-30); Microalbumin Urine < 1 mg/dL
== END 2022-11-14 08:07 | disposition home or self-care (01) ==
PROVIDERS: PCP Internal Medicine; Visit Provider Internal Medicine
DX: Z94.0 Kidney transplant status (principal)
CPT/HCPCS: 82043; 82565; 82570; 82947; 83735; 84100; 84132

== ENCOUNTER 2023-01-01 07:37 | Outpatient (CLI) | payer BC, SELFPAY | END 2023-01-01 07:38 | disposition home or self-care (01) | PROVIDERS: PCP Internal Medicine; Visit Provider Internal Medicine | DX: Z94.0 Kidney transplant status (principal); D84.821 Immunodeficiency due to drugs; Z79.899 Other long term (current) drug therapy | CPT/HCPCS: 82043; 82565; 82570; 82947; 83735; 84100; 84132 ==

== ENCOUNTER 2023-03-21 07:37 | Outpatient (CLI) | payer BC, SELFPAY | END 2023-03-21 07:38 | disposition home or self-care (01) | PROVIDERS: PCP Internal Medicine; Visit Provider Internal Medicine | DX: Z00.00 Encounter for general adult medical examination without abnormal findings (principal); R73.03 Prediabetes; R78.5 Finding of other psychotropic drug in blood; R97.20 Elevated prostate specific antigen [PSA] | CPT/HCPCS: 80061; 82043; 82565; 82570; 82947; 83735; 84100; 84132 ==

== ENCOUNTER 2023-06-19 07:43 | Outpatient (CLI) | payer BC, SELFPAY | END 2023-06-19 07:44 | disposition home or self-care (01) | PROVIDERS: PCP Internal Medicine; Visit Provider Internal Medicine | DX: Z94.0 Kidney transplant status (principal) | CPT/HCPCS: 82043; 82565; 82570; 82947; 83735; 84100; 84132 ==

== ENCOUNTER 2023-10-09 07:50 | Outpatient (CLI) | payer BC, SELFPAY | END 2023-10-09 07:51 | disposition home or self-care (01) | PROVIDERS: PCP Internal Medicine; Visit Provider Internal Medicine | DX: Z01.818 Encounter for other preprocedural examination (principal); E78.5 Hyperlipidemia, unspecified; R73.03 Prediabetes; R97.20 Elevated prostate specific antigen [PSA]; M85.80 Other specified disorders of bone density and structure, unspecified site | CPT/HCPCS: 82043; 82565; 82570; 82947; 83735; 84100; 84132 ==

== ENCOUNTER 2023-10-26 10:52 | Outpatient (CLI) | payer BC, SELFPAY ==
--- OUTSIDE RECORDS SUMMARY | 2023-10-26 11:05 | XMS_ITS | Encounter Summary ---
Author Name Unknown Organization [facility] Address [address] [place] [address] Care Team Providers Care Lodge Sales Associate Name Role Phone Elsewhere, Pcp Primary Care Provider Unavailabl e Encounter Details Date Type Department Care Team (Late st Contact Info) Description 10/09/2023 Orders Only Joey christina [facility] in [place], [place] [address] [place] [id number] External, Ordering ProviderJoel Social History Tobacco Use Types Packs/Day Years Used Date Smoking Tobacco: Never Smokeless Tobacco: Never Alcohol Use Standard Drinks/Week Comments Yes 4 (1 standard drink = 0.6 oz pur e alcohol) Social Connection and Isolation Panel [NHANES] A nswer Date Recorded In a typical week, how many times do you talk on the phone with family, friends, or neighbors? Three times a week 05/12/20 How often do you get togethe r with friends or relatives? Once a week 05/12/2021 How often do you attend chur ch or jewish services? Never 05/12/2021 Do you belong to any clubs o r organizations such as mormon groups, unions, fraternal or athletic groups, or school groups? No 05/12/2021 How often do you attend meet ings of the clubs or organizations you belong to? 1 to 4 times per year 05/12/2021 Are you , , di vorced, , never , or living with a partner? 05/12/2021 AUDIT-C Answer Date Recorded Q1: How often do you have a drink containing alcohol? 4 or more times a week 05/12/2021 Q2: How many drinks containi ng alcohol do you have on a typical day when you are drinking? 1 or 2 Q3: How often do you have si x or more drinks on one occasion? Never 05/12/2021 Overall Financial Resource Strain (CARDIA) Answe r Date Recorded How hard is it for you to pa y for the very basics like food, housing, medical care, and heating? Not hard at all 05/12/2021 PHQ-2 Answer Date Recorded PHQ-2 Score 0 02/27/2019 [facility] - Occupational Stress Questionnaire Answer Date Recorded Do you feel stress - tense, restless, nervous, or anxious, or unable to sleep at night because your mind is troubled all the time - these days? Only a little 05/12/2021 Exercise Vital Sign Answer Date Recorde d On average, how many days pe r week do you engage in moderate to strenuous exercise (like a brisk walk)? 5 days 05/12/2021 On average, how many minutes do you engage in exercise at this level? 30 min 05/12/2021 Hunger Vital Sign Answer Date Recorded Within the past 12 months, y ou worried that your food would run out before you got the money to buy more. Never true 05/12/20 21 Within the past 12 months, t he food you bought just didn't last and you didn't have money to get more. Never true 05/12/2021 PRAPARE - Transportation Answer Date Re corded In the past 12 months, has l ack of transportation kept you from medical appointments or from getting medications? No 04/24 In the past 12 months, has l ack of transportation kept you from meetings, work, or from getting things needed for daily living? No 05/12/2021 Housing Stability Vital Sign Answer Tripp e Recorded In the last 12 months, was t here a time when you were not able to pay the mortgage or rent on time? No 05/12/2021 In the last 12 months, how many places have you lived? 1 05/12/2021 In the last 12 months, was t here a time when you did not have a steady place to sleep or slept in a usp (including now)? No 05/12/2021 Nutrition Answer Date Recorded Nutrition: EVOO Fat Source No 05/12 On average, how many serving s of fruits and vegetables do you eat per day (serving size is equal to 1 cup or approximately the size of a tennis ball)? 2-3 05/12/2021 Dental Answer Date Recorded Dental: Regular Dentist Yes 09/21/20 Employment Answer Date Recorded Employment status Employed and actively working without restrictions 05/12/2021 Education Answer Date Recorded What is the highest level of school you have completed or the highest degree you have received? 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 Ordering Provider External [facility] ADD-ON SCANNED REPORT documented in this encounter Visit Diagnoses Not on filedocumented in this encounter Additional Health Concerns Infection Onset Date Last Indicated Resolved Time Protective Environment 01/03/2023 01/03/2023 Assessment Noted Time PHQ-9 Depression Total Score: 0 07/17/20 17 1:08 PM CDT documented as of this encounter Care Teams Lodge Sales Associate Relationship Specialty Start Date End Date Elsewhere, Pcp PCP - General Internal Medicine 05/02/22 [facility] [address] [place], [place] [address] Laboratory Medicine 07/19/20 documented as of this encounter
--- OUTSIDE RECORDS SUMMARY | 2023-10-26 11:05 | XMS_ITS | Clinical Summary ---
Author Name Unknown Organization [facility] Address [place], [place] [address] Care Team Providers Care Brazing Machine Operator Name Role Phone Jhoan Carmen MD Primary Care Provider Allergies No known active allergies Medications Medication Sig Dispensed Refills Start Date End Date Status OMEGA 3-6-9 40 MG-60 MG-10 UNIT CAP take 1 po twice daily 0 07/16/2007 Active alendronate (FOSAMAX) 70 mg tablet Take 70 mg by mouth every Sunday morning. 0 06/09/2015 Active mycophenolate (CELLCEPT) 250 mg capsule Take 250 mg by mouth. Takes 2 capsules in the am and 1 capsule in the pm 0 06/09/2015 Active predniSONE (DELTASONE) 5 mg tablet Take 5 mg by mouth once daily. In the am 0 06/09/2015 Active tacrolimus (PROGRAF) 1 mg capsule Take 1 mg by mouth. 2 capsules in the am and 2 capsules in the pm 0 06/09/2015 Active Aspirin, Buffered 81 mg tab Take by mouth once daily in the evening. 0 06/30/2015 Active calcium carbonate-vit D3, 600 mg-400 units, (CALCIUM-VITAMIN D) tablet Take 1 tablet by mouth 2 times daily with meals. 0 06/30/2015 Active atorvastatin (LIPITOR) 20 mg tablet Take 1 tablet by mouth once daily. 0 04/24/2017 Active tacrolimus (PROGRAF) 1 mg capsule Take 2 mg by mouth. 0 09/06/2020 Act lisa mycophenolate (CELLCEPT) 250 mg capsule TAKE 2 CAPSULES BY MOUTH IN THE MORNING AND 1 CAPSULE BY MOUTH IN THE PM TEVA BRAND 0 10/11/2020 Active Active Problems Problem Noted Date Diagnosed Date Anemia of other chronic disease 06/08/2009 Other neutropenia 11/14/2007 Mixed hyperlipidemia 11/12/2007 Hyperpotassemia 11/12/2007 Other B-complex deficiencies 11/12/2007 Nephritis and nephropathy, n ot specified as acute or chronic, with unspecified pathological lesion in kidney Unspecified disorder of kidney and ureter Overview: Renal insufficiency Immunizations Name Administration Dates Next Due Hepatitis B (Adult) 06/15/2000,05/02/1996,1995 Influenza A (H1N1), Inactiva marcelle (Age >=3 Years) 09/14/2009 Influenza, IIV3 (Age >=3 years) 07/08/2009,07/20 Pneumococcal Poly,23-Valent (Pneumovax) 09/14/20 08,11/30/1999 Td (Age >=7 Years) 08/06/2002 Tuberculin (PPD) 04/15/2010 Typhoid (injectable) 06/15/2000 Social History Tobacco Use Types Packs/Day Years Used Date Smoking Tobacco: Never Smokeless Tobacco: Never Tobacco Cessation:Counseling Given: Yes Alcohol Use Standard Drinks/Week Comments Yes 3.3 (1 standard drink = 0.6 oz p ure alcohol) 1-2 drinks per week Sex and Gender Information Value Date Recorded Sex Assigned at Not on file Gender Identity Not on file Sexual Orientation Not on file Obstetrics History Last Filed Vital Signs Vital Sign Reading Time Taken Comments Blood Pressure 131/84 01/04/2021 2:44 PM CDT Pulse 72 01/04/2021 2:44 PM CDT Temperature 36.5 ??C (97.7 ??F) 06/30/2015 1:15 PM CD T Respiratory Rate - - Oxygen Saturation 99% 01/04/2021 2:44 PM CDT Inhaled Oxygen Concentration - - Weight 80.1 kg (176 lb 9.6 oz) 01/04/2021 2:44 P M CDT Height 185.7 cm (6' 1.11) 06/30/2015 1:15 PM CD T Body Mass Index 23.23 06/30/2015 1:15 PM CDT Plan of Treatment Health Maintenance Due Date Last Done Comments COVID-19 vaccine series (#1) 04/16/1967 Tdap 1977 Depression screening for age 12+ 1978 HIV for age 15-65 1981 BMI (ht and wt on same day) for age 18+ 1984 Hepatitis C screening for ag e 18-79 1984 Colonoscopy through age 75 2011 Lipids for age 45-75 2011 Tetanus booster 08/06/2012 08/06/2002 Zoster (shingles) series for age 50+ (1 of 2) 2016 Influenza for age 50-64 05/25/2023 09/14/20 09, 07/08/2009, 07/20/2008 Pneumococcal series for age 6-64 Aged Out 09/14/2008, 11/30/1999 No longer eligible based on patient's age to complete this topic Care Teams Brazing Machine Operator Relationship Specialty Start Date End Date Jhoan Carmen MD [address] [place] [address] PCP - General 01/30/06
--- OUTSIDE RECORDS SUMMARY | 2023-10-26 11:05 | XMS_ITS ---
Author Name Unknown Organization [facility] Address [address] [place] [address] Care Team Providers Care Family Caseworker Name Role Phone Unavailable Unavailable Unavailable Surgery Details Not on file Complications Check Surgery Details section. Procedure Estimated Blood Loss Check Surgery Details section. Procedure Findings Check Surgery Details section. Procedure Specimens Taken Check Surgery Details section.
--- OUTSIDE RECORDS SUMMARY | 2023-10-26 11:05 | XMS_ITS | Referral Summary ---
Author Name Unknown Organization [facility] Address [address] [place] [id number] Care Team Providers Care Clinical Team Lead Name Role Phone Elsewhere, Pcp Primary Care Provider Unavailabl e Source Comments Patient records contain information from all sites at [facility]. For routine questions regarding patient records, call [phone] during business hours, M-F 8:00 AM - 5:00 PM Central Time. Record requests for emergency care only can be directed to [phone] at any time.[facility] Encounters Date Type Department Care Team Description 10/16/2023 7:04 AM FAST FOOD SERVICES MANAGER - 10/16/2023 11:59 PM FAST FOOD SERVICES MANAGER Hospital Encounter Department of Laboratory Medicine and Pathology, [facility] in [place], [place] [address] [place] [address] Bryce, Howard Cox M.D. Transplant Renal (HCC) Discharge Disposition: Home or Self Care 10/15/2023 [facility] [place], [place] [address] [place] [address] Zabrina Marquez Transplant Renal (HCC) (Primary Dx) 10/11/2023 [facility] [place], [place] [address] [place] [address] Eleni Henley Tacrolimus Adjustment Protocol 10/09/2023 [facility] in [place], [place] [address] [place] [phone] External, Ordering ProviderJoel 10/09/2023 Orders Only Joey Ferrer [facility] Transplantation and Clinical Regeneration in [place], [place] [address] [place] [phone] External, Ordering Provider, Joel 09/04/2023 2:42 PM FAST FOOD SERVICES MANAGER - 09/04/2023 11:59 PM FAST FOOD SERVICES MANAGER Hospital Encounter Department of Laboratory Medicine and Pathology, [facility] in [place], [place] [address] [place] [phone] Howard Wu M.D. Transplant Renal (HCC) Discharge Disposition: Home or Self Care 09/03/2023 Orders Only Joey Ferrer [facility] Transplantation [facility] Clinical Regeneration in [place], [place] [address] [place] [phone] Howard Wu M.D. Transplant Renal (HCC) 08/30/2023 11:14 AM FAST FOOD SERVICES MANAGER - 08/30/2023 11:59 PM FAST FOOD SERVICES MANAGER Hospital Encounter Department of Radiology, [place], [place] [address] [place] [phone] Elio Churchill Osteoporosis Discharge Disposition: Home or Self Care 08/30/2023 10:00 AM FAST FOOD SERVICES MANAGER Comprehensive [facility] in [place], [place] [address] [place] [phone] Josette Hannon M.D. Shah, Pankaj Osteoporosis (Primary Dx); Hyperglycemia; Hyperlipidemia from Last 3 Months Allergies Active Allergy Reactions Criticality Noted Date Comments No Known Allergies Other (see comments) 011 Medications Medication Sig Dispensed Refills Start Date End Date Status calcium carbonate-vit D3-min 600 mg calcium- 400 unit tablet Take 1 tablet by mouth daily. 6 0 06/30/2015 Active omega-3 fatty acids-fish oil 300-1,000 mg per capsule Take 1 capsule by mouth daily. 0 05/23/2016 Active Lactobacillus acidophilus (PROBIOTIC ORAL) Take 1 tablet by mouth daily. 0 Active alendronate (FOSAMAX) 70 mg tablet TAKE 1 TABLET (70 MG TOTAL) BY MOUTH ONCE A WEEK. 12 tablet 3 05/17/2023 05/16/2024 Active tacrolimus (PROGRAF) 1 mg capsuleIndications :Transplant Renal (HCC) TAKE TWO CAPSULES BY MOUTH TWICE A DAY. 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 90 tablet 3 06/20/2023 Active mycophenolate (CELLCEPT) 250 mg capsuleIndications :Transplant Renal (HCC) TAKE 2 CAPSULES BY MOUTH IN THE MORNING AND 1 CAPSULE BY MOUTH IN THE PM TEVA BRAND 270 capsule 3 06/20/2023 Active blood-glucose sensor (FreeStyle Emeka 3 Sensor) device 1 each as directed. Change every 14 days for continuous glucose monitoring. 9 each 3 06/27/2023 06/26/2024 Active atorvastatin (LIPITOR) 40 mg tablet Take 1 tablet (40 mg total) by mouth daily. 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 Hypertension 01/29/2004 Hyperlipidemia 01/29/2004 Immunizations Name Administration Dates Next Due HepA, Unspecified 05/02/1996,11/02/1995 HepB, Unspecified 06/15/2000, 6,11/30/1995,1995 Influenza Split 07/25/2007,09/24/2005 Influenza, Injectable, Mdck, Quadrivalent 07/22/2021 PCV13 05/21/2013 PPSV23(Discontinued) 12/17/2018,09/14/2008,09/24 RZV (SHINGRIX) 11/20/2018,06/06/2018 SARS-COV-2 (COVID-19) - MODERNA(Discontinued) 11/08/2021 Td, (Adult) Unspecified 09/24/2001 Tdap 04/18/2012 TyVi (inj) 06/15/2000 influenza vaccine quad (FLUZONE/FLUARIX) (6 months and older)(PF) 07/17/2017 Social History Tobacco Use Types Packs/Day Years [...] often do you attend chur ch or voodoo services? Never 05/12/2021 Do you belong to any clubs o r organizations such as tenriism groups, unions, fraternal or athletic groups, or [...] Answer Date Recorded PHQ-2 Score 0 02/27/2019 [facility] of Occupat ional Health - Occupational Stress [...] or slept in a correction (including now)? No 05/12/2021 Nutrition Answer Date Recorded Nutrition: EVOO Fat Source No 05/12 On average, how many serving s of fruits and vegetables do you eat per day (serving size is equal to 1 cup or approximately the size of a tennis ball)? 2-3 05/12/2021 Dental Answer Date Recorded Dental: Regular Dentist Yes 09/21/20 22 Employment Answer Date Recorded Employment status Employed and actively working without restrictions 05/12/2021 Education Answer Date Recorded What is the highest level of school you have completed or the highest degree you have received? Master's degree (e.g., MA, MS, Young, MEd, BUSINESS OPERATIONS CONSULTANT, ERNIE) 05/08/2019 Sex and Gender Information Value Date Recorded Sex Assigned at Male 05/27/2018 8:52 AM CDT Gender Identity Male 05/27/2018 8:52 AM CDT Sexual Orientation Straight 05/27/2018 8: 52 AM CDT Last Filed Vital Signs Vital Sign Reading Time Taken Comments Blood Pressure 103/69 05/30/2023 2:29 PM CDT Pulse 98 05/30/2023 2:29 PM CDT Temperature 36.9 ??C (98.4 ??F) 05/30/2023 1:36 PM CD T Respiratory Rate 16 05/23/2016 3:30 PM CDT Oxygen Saturation - - Inhaled Oxygen Concentration - - Weight 69.3 kg (152 lb 12.5 oz) 05/30/2023 1:36 PM CDT Height 187.7 cm (6' 1.9) 08/30/2023 9:55 AM FAST FOOD SERVICES MANAGER Body Mass Index 20.25 05/30/2023 9:00 AM CDT Plan of Treatment Not on file Medical Devices Implanted Type Area Home Office Representative Device Identifier Shelf Expiration Date Model / Serial / Lot Stent Uret Dbl. J 7 X 12 - Chopra [id number] Implanted:Qty: 1 on 05/22/2011 Ureteral Stent Other/Legacy - See Implant Description Description:Device Manufactu rer - [employer]. Device Status Text - [id number]. Procedures Procedure Name Priority Date/Time Associated Diagnosis Comments EXTM ALBUMIN, RANDOM, U Routine 10/09/2023 7:50 AM FAST FOOD SERVICES MANAGER EXTM HEMOGLOBIN A1C, B Routine 10/09/2023 7:45 AM FAST FOOD SERVICES MANAGER EXTM MAGNESIUM, S Routine 10/09/2023 7:4 5 AM FAST FOOD SERVICES MANAGER EXTM PHOSPHORUS (INORGANIC), S Routine 10/09/2023 7:45 AM FAST FOOD SERVICES MANAGER EXTM GLUCOSE, RANDOM, S/P Routine 10/09/2023 7:45 AM FAST FOOD SERVICES MANAGER EXTM CREATININE WITH EGFR, S/P Routine 10/09/2023 7:45 AM FAST FOOD SERVICES MANAGER EXTM POTASSIUM, S/P Routine 10/09/2023 7:45 AM FAST FOOD SERVICES MANAGER EXTP COMPLETE BLOOD COUNT, BLOOD Routine 10/09/2023 7:45 AM FAST FOOD SERVICES MANAGER TACROLIMUS LEVEL, B Routine 10/09/2023 7:45 AM FAST FOOD SERVICES MANAGER Transplant Renal (HCC) BMD BONE DENSITY SPINE HIPS RAD - Routine (most inpatients and all outpatients) 08/30/2023 11:52 AM FAST FOOD SERVICES MANAGER Osteoporosis from Last 3 Months Results * EXT Albumin, Random, Urine (10/09/2023 7:50 AM FAST FOOD SERVICES MANAGER) EXT Creatinine, Urine 117.0 mg/dL SCANNED REPORT EXT Microalbumin-Ra ndom, U <1 mg/dL SCANNED REPORT EXT Albumin/Creatin ine Ratio 0 0 - 30 mg/g SCANNED REPORT 10/09/2023 7:50 AM FAST FOOD SERVICES MANAGER Narrative SCANNED REPORT - 10/12/2023 3:06 PM FAST FOOD SERVICES MANAGER Source result document attached to Order Number [id number] ([id number]) dated 10/09/2023. External results verified in Extract by Earnestine Duran on 10/12/2023 at 03:02 PM. Ordering Provider Nicole Maldonado LAB URIN E ORDERABLES SCANNED REPORT * EXT Potassium (10/09/2023 7:45 AM FAST FOOD SERVICES MANAGER) Pathologist [facility] EXT Potassium 4.6 3.6 - 5.1 mmol/L SCANNED REPORT 10/09/2023 7:45 AM FAST FOOD SERVICES MANAGER Narrative SCANNED REPORT - 10/12/2023 3:06 PM FAST FOOD SERVICES MANAGER Source result document attached to Order Number [id number] ([id number]) dated 10/09/2023. External results verified in Extract by Earnestine Duran on 10/12/2023 at 03:02 PM. Ordering Provider Nicole Maldonado LAB BLOO D ADD-ON Performing Organization Address [facility] de Phone Number SCANNED REPORT * EXT Phosphorus Inorganic (10/09/2023 7:45 AM FAST FOOD SERVICES MANAGER) EXT Phosphorus (Inorganic), S 3.6 0.5 - 4.5 mg/dL SCANNED REPORT 10/09/2023 7:45 AM FAST FOOD SERVICES MANAGER Narrative SCANNED REPORT - 10/12/2023 3:06 PM FAST FOOD SERVICES MANAGER Source result document attached to Order Number [id number] ([id number]) dated 10/09/2023. External results verified in Extract by Earnestine Duran on 10/12/2023 at 03:02 PM. Ordering Provider iNcole Chung ADD-ON Performing Organization Address [facility] de Phone Number SCANNED REPORT * EXT Magnesium (10/09/2023 7:45 AM FAST FOOD SERVICES MANAGER) EXT Magnesium 1.8 1.5 - 2.6 mg/dL SCANNED REPORT 10/09/2023 7:45 AM FAST FOOD SERVICES MANAGER Narrative SCANNED REPORT - 10/12/2023 3:06 PM FAST FOOD SERVICES MANAGER Source result document attached to Order Number [id number] ([id number]) dated 10/09/2023. External results verified in Extract by Earnestine Duran on 10/12/2023 at 03:02 PM. Ordering Provider Nicole Chung ADD-ON Performing Organization Address [facility] de Phone Number SCANNED REPORT * (ABNORMAL) EXT Hemoglobin A1c (10/09/2023 7:45 AM FAST FOOD SERVICES MANAGER) EXT Hemoglobin A1c, B 6.7(H) 0 - 5.6 % SCANNED REPORT 10/09/2023 7:45 AM FAST FOOD SERVICES MANAGER Narrative SCANNED REPORT - 10/15/2023 8:26 AM FAST FOOD SERVICES MANAGER External results verified in Extract by Patricia Allen on 10/15/2023 at 08:22 AM. Ordering Provider External Joel LAB BLOO D ADD-ON Performing Organization Address [facility] Co de Phone Number SCANNED REPORT * (ABNORMAL) EXT Glucose, Random (10/09/2023 7:45 AM FAST FOOD SERVICES MANAGER) EXT Glucose 169(H) 60 - 115 mg/dL SCANNED REPORT 10/09/2023 7:45 AM FAST FOOD SERVICES MANAGER Narrative SCANNED REPORT - 10/12/2023 3:06 PM FAST FOOD SERVICES MANAGER Source result document attached to Order Number [id number] ([id number]) dated 10/09/2023. External results verified in Extract by Earnestine Duran on 10/12/2023 at 03:02 PM. Ordering Provider Nicole Maldonado LAB BLOHui Chung TROPONIN Performing Organization Address [facility] de Phone Number SCANNED REPORT * (ABNORMAL) EXT Creatinine with Estimated GFR (10/09/2023 7:45 AM FAST FOOD SERVICES MANAGER) EXT Creatinine 1.8(H) 0.5 - 1.5 mg/dL SCANNED REPORT EXT Estimated GFR (eGFR) 44 ml/min SCANNED REPORT 10/09/2023 7:45 AM FAST FOOD SERVICES MANAGER Narrative SCANNED REPORT - 10/12/2023 3:06 PM FAST FOOD SERVICES MANAGER Source result document attached to Order Number [id number] ([id number]) dated 10/09/2023. External results verified in Extract by Earnestine Duran on 10/12/2023 at 03:02 PM. Ordering Provider Nicole Maldonado LAB BLOO D ADD-ON Performing Organization Address [facility] Co de Phone Number SCANNED REPORT * (ABNORMAL) EXT Complete Blood Count, Blood (10/09/2023 7:45 AM FAST FOOD SERVICES MANAGER) EXT Leukocytes 3.29(L) 4.50 - 11.00 K/uL SCANNED REPORT EXT Hemoglobin 14.5 13.5 - 17.5 gm/dL SCANNED REPORT EXT Hematocrit 42.1 37.0 - 53.0 % SCANNED REPORT EXT MCV 95 80 - 100 fL SCANNED REPORT EXT Platelet Count 177 140 - 440 K/uL SCANNED REPORT EXT RDW 11.8 11.5 - 15.5 % SCANNED REPORT EXT Neutrophils 2.00 1.7 - 7.0 K/uL SCANNED REPORT EXT Lymphocytes 1.00 0.90 - 2.90 K/uL SCANNED REPORT EXT Monocytes 0.30 0.00 - 0.90 K/UL SCANNED REPORT EXT Eosinophils 0.00 0.00 - 0.50 K/uL SCANNED REPORT EXT RBC 4.45 4.30 - 5.90 m/uL SCANNED REPORT EXT Basophils 0.00 0.00 - 0.30 K/uL SCANNED REPORT 10/09/2023 7:45 AM FAST FOOD SERVICES MANAGER Narrative SCANNED REPORT - 10/12/2023 3:06 PM FAST FOOD SERVICES MANAGER External results verified in Extract by Earnestine Duran on 10/12/2023 at 03:02 PM. Ordering Provider Nicole Maldonado LAB BLOO D NON ADD-ON SCANNED REPORT * Tacrolimus, B (10/09/2023 7:45 AM FAST FOOD SERVICES MANAGER) Tacrolimus, Trough 12.5 5.0-15.0 (Trough) ng/mL 10/10/2023 10:03 AM FAST FOOD SERVICES MANAGER [facility] Comment: ----ADDITIONAL INFORMATION---- Target steady-state trough concentrations vary depending on the type of transplant, concomitant immunosuppression, clinical/institutional protocols, and time post-transplant. Results should be interpreted in conjunction with this clinical information and any physical signs/symptoms of rejection/toxicity. Testing performed by Liquid Chromatography-Tandem Mass Spectrometry (LC-MS/MS). This test was developed and its performance characteristics determined by [facility] in a manner consistent with CLIA requirements. This test has not been cleared or approved by the U.S. Food and Drug Administration. Blood (Blood, Venous) 10/09/2023 7:45 AM FAST FOOD SERVICES MANAGER 10/10/2023 7:07 AM FAST FOOD SERVICES MANAGER Howard Wu M.D. LAB BLOOD NON ADD-ON [facility] [place] [address] [place] [address] [facility] [address] [place] [address] [place] [address] * BMD Bone Density Spine Hips (08/30/2023 11:52 AM FAST FOOD SERVICES MANAGER) Anatomical Region Laterality Modality Hip, Lumbar Spine, Nuclear M edicine RST LOS, Musculoskeletal ARZ LOS, Muskuloskeletal FLA LOS N/A Radio graphic Imaging 08/30/2023 11:5 4 AM FAST FOOD SERVICES MANAGER Impressions 08/30/2023 11:56 AM FAST FOOD SERVICES MANAGER Osteoporosis DualFemur (region: Neck Left) Osteoporosis DualFemur (region: Neck Right) ?? Narrative 08/30/2023 11:56 AM FAST FOOD SERVICES MANAGER EXAM: ??BMD BONE DENSITY SPINE HIPS Bone Mineral Density (BMD) analysis performed on [employer] with serial number [id number]. COMPARISON: Serial Comparisons Left Total Hip results: Exam Date ? BMD ? T-score ? 06/08/2011 ? 0.728 g/cm2 ?? -2.2 ? 06/08/2011 ? 0.730 g/cm2 ?? -2.2 ? 05/21/2012 ? 0.754 g/cm2 ?? -2.0 ? 05/21/2012 ? 0.755 g/cm2 ?? -2.0 ? 05/08/2014 ? 0.782 g/cm2 ?? -1.8 ? 05/23/2016 ? 0.798 g/cm2 ?? -1.7 ? 05/31/2018 ?0.760 g/cm2 ?? -2.0 ? 05/25/2020 ?0.754 g/cm2 ?? -2.0 ? 05/02/2022 ?0.727 g/cm2 ?? -2.2 ? 08/30/2023 ? 0.724 g/cm2 ?? -2.3 ? Change vs. Previous (difference): -0.003 g/cm2 Change vs. Previous (%): -0.4 % The absolute BMD change from previous, -0.003 g/cm2, is greater than least significant change: No The absolute BMD change from baseline, -0.004 g/cm2, is greater than least significant change: No Right Total Hip results: Exam Date ? BMD ? T-score ? 06/08/2011 ? 0.766 g/cm2 ?? -1.9 ? 06/08/2011 ? 0.762 g/cm2 ?? -1.9 ? 05/21/2012 ? 0.778 g/cm2 ?? -1.8 ? 05/21/2012 ? 0.779 g/cm2 ?? -1.8 ? 05/08/2014 ? 0.821 g/cm2 ?? -1.5 ? 05/23/2016 ? 0.838 g/cm2 ?? -1.3 ? 05/31/2018 ?0.779 g/cm2 ?? -1.8 ? 05/25/2020 ?0.801 g/cm2 ?? -1.6 ? 05/02/2022 ?0.776 g/cm2 ?? -1.8 ? 08/30/2023 ? 0.754 g/cm2 ?? -2.0 ? Change vs. Previous (difference): -0.022 g/cm2 Change vs. Previous (%): -2.8 % The absolute BMD change from previous, -0.022 g/cm2, is greater than least significant change: No The absolute BMD change from baseline, -0.012 g/cm2, is greater than least significant change: No Combined Total Hip results: Exam Date ? BMD ? T-score ? 06/08/2011 ? 0.747 g/cm2 ?? -2.1 ? 06/08/2011 ? 0.746 g/cm2 ?? -2.1 ? 05/21/2012 ? 0.766 g/cm2 ?? -1.9 ? 05/21/2012 ? 0.767 g/cm2 ?? -1.9 ? 05/08/2014 ? 0.802 g/cm2 ?? -1.6 ? 05/23/2016 ? 0.818 g/cm2 ?? -1.5 ? 05/31/2018 ?0.770 g/cm2 ?? -1.9 ? 05/25/2020 ?0.778 g/cm2 ?? -1.8 ? 05/02/2022 ?0.752 g/cm2 ?? -2.0 ? 08/30/2023 ? 0.739 g/cm2 ?? -2.1 ? Change vs. Previous (difference): -0.013 g/cm2 Change vs. Previous (%): -1.7 % The absolute BMD change from previous, -0.013 g/cm2, is greater than least significant change: No The absolute BMD change from baseline, -0.008 g/cm2, is greater than least significant change: No Spine results: Exam Date ? BMD ? T-score ? 06/08/2011 ? 0.871 g/cm2 ?? -2.5 ? 06/08/2011 ? 0.872 g/cm2 ?? -2.5 ? 05/21/2012 ? 0.960 g/cm2 ?? -1.8 ? 05/21/2012 ? 0.946 g/cm2 ?? -1.9 ? 05/08/2014 ? 1.008 g/cm2 ?? -1.4 ? 05/23/2016 ? 1.013 g/cm2 ?? -1.3 ? 05/31/2018 ?0.930 g/cm2 ?? -2.0 ? 05/25/2020 ?0.970 g/cm2 ?? -1.7 ? 05/02/2022 ?0.931 g/cm2 ?? -2.0 ? 08/30/2023 ? 0.920 g/cm2 ?? -2.1 ? Change vs. Previous (difference): -0.011 g/cm2 Change vs. Previous (%): -1.2 % The absolute BMD change from previous, -0.011 g/cm2, is greater than the least significant change: No The absolute BMD change from baseline, 0.049 g/cm2, is greater than the least significant change: No ----- FINDINGS: Left Hip: Femur Neck: BMD = 0.663 g/cm2 T-score = -2.7 ?Z-score = -2.1 Total Hip: BMD = 0.724 g/cm2 T-score = -2.3 ?Z-score = -2.0 Right Hip: Femur Neck: BMD = 0.664 g/cm2 T-score = -2.7 ?? Z-score = -2.1 Total Hip: BMD = 0.754 g/cm2 T-score = -2.0 ?Z-score = -1.8 Lumbar Spine: L1: BMD = 0.875 g/cm2 L2: BMD = 0.966 g/cm2 L3: BMD = 1.039 g/cm2 L4: BMD = 1.133 g/cm2 Total Lumbar Spine (L1-L2): BMD = 0.920 g/cm2 T-score = -2.1 ?Z-score = -1.8 Trabecular Bone Score: L1-L2: TBS = 1.310 < 1.23: low 1.23 -1.31: borderline > 1.31: normal A low TBS has been associated with increased risk of fractures in certain populations. TBS should not be used alone to determine treatment recommendations. It can be used in conjunction with BMD and FRAX to inform management. Please note: A more comprehensive DXA report, including images and graphs, is available in [employer]. In the absence of other causes of low BMD or demonstrated skeletal fragility, osteoporosis may be diagnosed in post-menopausal women and men at or above age 50 when the T-score is at or below -2.5 as defined by the WHO. Low bone density is present at T-scores between -1 and -2.5. The diagnosis in pre-menopausal women and men < age 50 can be based on low bone density or evidence of skeletal fragility in the appropriate clinical setting. Degenerative changes are present which may spuriously elevate the spine BMD measurement. Patient does not meet ISCD guidelines for FRAX calculations. (on treatment) Procedure Note Lora Daugherty M.D. - 08/30/2023 EXAM: BMD BONE DENSITY SPINE HIPS Bone Mineral Density (BMD) analysis performed on [email or web address] with serialnumber [id number]. COMPARISON: Serial Comparisons Left Total Hip results: Exam Date BMD T-score 06/08/2011 0.728 g/cm2 -2.2 06/08/2011 0.730 g/cm2 -2.2 05/21/2012 0.754 g/cm2 -2.0 05/21/2012 0.755 g/cm2 -2.0 05/08/2014 0.782 g/cm2 -1.8 05/23/2016 0.798 g/cm2 -1.7 05/31/2018 0.760 g/cm2 -2.0 05/25/2020 0.754 g/cm2 -2.0 05/02/2022 0.727 g/cm2 -2.2 08/30/2023 0.724 g/cm2 -2.3 Change vs. Previous (difference): -0.003 g/cm2 Change vs. Previous (%): -0.4 % The absolute BMD change from previous, -0.003 g/cm2, is greater than least significant change: No The absolute BMD change from baseline, -0.004 g/cm2, is greater than least significant change: No Right Total Hip results: Exam Date BMD T-score 06/08/2011 0.766 g/cm2 -1.9 06/08/2011 0.762 g/cm2 -1.9 05/21/2012 0.778 g/cm2 -1.8 05/21/2012 0.779 g/cm2 -1.8 05/08/2014 0.821 g/cm2 -1.5 05/23/2016 0.838 g/cm2 -1.3 05/31/2018 0.779 g/cm2 -1.8 05/25/2020 0.801 g/cm2 -1.6 05/02/2022 0.776 g/cm2 -1.8 08/30/2023 0.754 g/cm2 -2.0 Change vs. Previous (difference): -0.022 g/cm2 Change vs. Previous (%): -2.8 % The absolute BMD change from previous, -0.022 g/cm2, is greater than least significant change: No The absolute BMD change from baseline, -0.012 g/cm2, is greater than least significant change: No Combined Total Hip results: Exam Date BMD T-score 06/08/2011 0.747 g/cm2 -2.1 06/08/2011 0.746 g/cm2 -2.1 05/21/2012 0.766 g/cm2 -1.9 05/21/2012 0.767 g/cm2 -1.9 05/08/2014 0.802 g/cm2 -1.6 05/23/2016 0.818 g/cm2 -1.5 05/31/2018 0.770 g/cm2 -1.9 05/25/2020 0.778 g/cm2 -1.8 05/02/2022 0.752 g/cm2 -2.0 08/30/2023 0.739 g/cm2 -2.1 Change vs. Previous (difference): -0.013 g/cm2 Change vs. Previous (%): -1.7 % The absolute BMD change from previous, -0.013 g/cm2, is greater than least significant change: No The absolute BMD change from baseline, -0.008 g/cm2, is greater than least significant change: No Spine results: Exam Date BMD T-score 06/08/2011 0.871 g/cm2 -2.5 06/08/2011 0.872 g/cm2 -2.5 05/21/2012 0.960 g/cm2 -1.8 05/21/2012 0.946 g/cm2 -1.9 05/08/2014 1.008 g/cm2 -1.4 05/23/2016 1.013 g/cm2 -1.3 05/31/2018 0.930 g/cm2 -2.0 05/25/2020 0.970 g/cm2 -1.7 05/02/2022 0.931 g/cm2 -2.0 08/30/2023 0.920 g/cm2 -2.1 Change vs. Previous (difference): -0.011 g/cm2 Change vs. Previous (%): -1.2 % The absolute BMD change from previous, -0.011 g/cm2, is greater than the least significant change: No The absolute BMD change from baseline, 0.049 g/cm2, is greater than the least significant change: No ----- FINDINGS: Left Hip: Femur Neck: BMD = 0.663 g/cm2 T-score = -2.7 Z-score = -2.1 Total Hip: BMD = 0.724 g/cm2 T-score = -2.3 Z-score = -2.0 Right Hip: Femur Neck: BMD = 0.664 g/cm2 T-score = -2.7 Z-score = -2.1 Total Hip: BMD = 0.754 g/cm2 T-score = -2.0 Z-score = -1.8 Lumbar Spine: L1: BMD = 0.875 g/cm2 L2: BMD = 0.966 g/cm2 L3: BMD = 1.039 g/cm2 L4: BMD = 1.133 g/cm2 Total Lumbar Spine (L1-L2): BMD = 0.920 g/cm2 T-score = -2.1 Z-score = -1.8 Trabecular Bone Score: L1-L2: TBS = 1.310 < 1.23: low 1.23 -1.31: borderline > 1.31: normal A low TBS has been associated with increased risk of fractures in certainpopulations. TBS should not be used alone to determine treatmentrecommendations. It can be used in conjunction with BMD and FRAX to informmanagement. Please note: A more comprehensive DXA report, including images and graphs,is available in [employer]. In the absence of other causes of low BMD or demonstrated skeletalfragility, osteoporosis may be diagnosed in post-menopausal women and menat or above age 50 when the T-score is at or below -2.5 as defined by theWHO. Low bone density is present at T-scores between -1 and -2.5. The diagnosis in pre-menopausal women andmen < age 50 can be based on low bone density or evidence of skeletalfragility in the appropriate clinical setting. Degenerative changes are present which may spuriously elevate the spineBMD measurement. Patient does not meet ISCD guidelines for FRAX calculations. (ontreatment) IMPRESSION: Osteoporosis DualFemur (region: Neck Left) Osteoporosis DualFemur (region: Neck Right) Elio Churchill IMKenny DXA PROCEDURES from Last 3 Months Additional Health Concerns Infection Onset Date Last Indicated Protective Environment 01/03/2023 3 Advance Directives For more information, please contact: [phone] Documents on File Type Date Recorded Patient Help Desk Associate Expl anation Advance Directives 10/15/2019 9:33 AM Heal th Care Directive Advance Directives 11/30/2010 12:00 AM [place] document. See document viewer. Healthcare Agents on File Name Relationship [facility] Ameeta Humberto Spouse Health Care Agent Guido Morocho First Alternate Health Care Agent Jose Raul Morocho Second Alternate Health Care Agent Care Teams Clinical Team Lead Relationship Specialty Start Date End Date Elsewhere, Pcp PCP - General Internal Medicine 05/02/22 [facility] [address] [place], [place] [address] Laboratory Medicine 07/19/20
--- OUTSIDE RECORDS SUMMARY | 2023-10-26 11:05 | XMS_ITS | Encounter Summary ---
Author Name Unknown Organization [facility] Address [address] [place] [id number] Care Team Providers Care Vp Compliance Name Role Phone Elsewhere, Pcp Primary Care Provider Unavailabl e Encounter Details Date Type Department Care Team (Late st Contact Info) Description 10/15/2023 Orders Only Joey christina [facility] in [place], [place] [address] [place] [phone] Zabrina Marquez [address] [place] [phone] Transplant Renal (HCC) (Primary Dx) Social History Tobacco Use Types Packs/Day Years [...] or neighbors? Three times a week 05/12/20 21 How often do you get togethe r with friends or relatives? Once a week 05/12/2021 How often do you attend [facility] or episcopal services? Never 05/12/2021 Do you belong to any clubs o r organizations such as protestant groups, unions, fraternal or athletic [...] Answer Date Recorded PHQ-2 Score 0 02/27/2019 [facility] - Occupational Stress [...] or slept in a intermediate (including now)? No 05/12/2021 Nutrition Answer Date [...] Master's degree (e.g., MA, MS, Young, MEd, INFORMATION WRITER, ERNIE) 05/08/2019 Sex and Gender Information Value Date Recorded Sex Assigned at Male 05/27/2018 8:52 AM CDT Gender Identity Male 05/27/2018 8:52 AM CDT Sexual Orientation Straight 05/27/2018 8: 52 AM CDT documented as of this encounter Plan of Treatment Scheduled Orders Name Type Priority Associated Diagnoses Orde r Schedule Tacrolimus, B Lab Routine Transplant Renal (HCC) Expected: 10/15/2023 (Approximate), Expires: 10/15/2024 documented as of this encounter Visit Diagnoses Diagnosis Transplant Renal (HCC)- Primary documented in this encounter Additional Health Concerns Infection Onset Date Last Indicated Resolved Time Protective Environment 01/03/2023 01/03/2023 Assessment Noted Time PHQ-9 Depression Total Score: 0 07/17/20 17 1:08 PM CDT documented as of this encounter Care Teams Vp Compliance Relationship Specialty Start Date End Date Elsewhere, Pcp PCP - General Internal Medicine 05/02/22 [facility] [address] [place], [place] [address] Laboratory Medicine 07/19/20 documented as of this encounter
--- OUTSIDE RECORDS SUMMARY | 2023-10-26 11:05 | XMS_ITS | Encounter Summary ---
Author Name Unknown Organization [facility] Address [address] [place] [address] Care Team Providers Care Die Cast Supervisor Name Role Phone Elsewhere, Pcp Primary Care Provider Unavailabl e Encounter Details Date Type Department Care Team (Latest Contact Info) Description 10/16/2023 7:04 AM MANIPULATIVE THERAPY SPECIALIST - 10/16/2023 11:59 PM MANIPULATIVE THERAPY SPECIALIST Hospital Encounter Department of Laboratory Medicine and Pathology, [facility] in [place], [place] [address] [place] [phone] BryceHoward M.D. [address] [place] [address] Transplant Renal (HCC) Discharge Disposition: Home or Self Care Social History Tobacco Use Types Packs/Day Years [...] often do you attend chur ch or gnosticism services? Never 05/12/2021 Do you belong to any clubs o r organizations such as gnosticist groups, unions, fraternal or athletic [...] Answer Date Recorded PHQ-2 Score 0 02/27/2019 [facility] - Occupational Stress [...] or slept in a residential (including now)? No 05/12/2021 Nutrition Answer Date [...] Master's degree (e.g., MA, MS, Young, MEd, SUPERVISOR RICE MILLING, ERNIE) 05/08/2019 Sex and Gender Information Value Date Recorded Sex Assigned at Male 05/27/2018 8:52 AM CDT Gender Identity Male 05/27/2018 8:52 AM CDT Sexual Orientation Straight 05/27/2018 8: 52 AM CDT documented as of this encounter Medications at Time of Discharge Medication Sig Dispensed Refills Start Date End Date alendronate (FOSAMAX) 70 mg tablet TAKE 1 TABLET (70 MG TOTAL) BY MOUTH ONCE A WEEK. 12 tablet 3 05/17/2023 05/16/2024 atorvastatin (LIPITOR) 40 mg tablet Take 1 tablet (40 mg total) by mouth daily. 90 tablet 3 08/30/2023 08/29/2024 blood-glucose sensor (FreeStyle Emeka 3 Sensor) device 1 each as directed. Change every 14 days for continuous glucose monitoring. 9 each 3 06/27/2023 06/26/2024 calcium carbonate-vit D3-min 600 mg calcium- 400 unit tablet Take 1 tablet by mouth daily. 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 0 mycophenolate (CELLCEPT) 250 mg capsuleIndications:Tr ansplant Renal (HCC) TAKE 2 CAPSULES BY MOUTH IN THE MORNING AND 1 CAPSULE BY MOUTH IN THE PM TEVA BRAND 270 capsule 3 06/20/2023 omega-3 fatty acids-fish oil 300-1,000 mg per capsule Take 1 capsule by mouth daily. 0 05/23/2016 predniSONE (DELTASONE) 5 mg tabletIndications:Tra nsplant Renal (HCC) TAKE 1 TABLET BY MOUTH ONCE DAILY. 90 tablet 3 06/20/2023 tacrolimus (PROGRAF) 1 mg capsuleIndications:Tr ansplant Renal (HCC) TAKE TWO CAPSULES BY MOUTH TWICE A DAY. 360 capsule 3 05/16/2023 documented as of this encounter Plan of Treatment Scheduled Orders Name Type Priority Associated Diagnoses Orde r Schedule Tacrolimus, B Lab Routine Transplant Renal (HCC) Once for 1 Occurrences starting 10/16/2023 until 10/16/2023 documented as of this encounter Visit Diagnoses Diagnosis Transplant Renal (HCC) documented in this encounter Additional Health Concerns Infection Onset Date Last Indicated Resolved Time Protective Environment 01/03/2023 01/03/2023 Assessment Noted Time PHQ-9 Depression Total Score: 0 07/17/20 17 1:08 PM CDT documented as of this encounter Care Teams Die Cast Supervisor Relationship Specialty Start Date End Date Elsewhere, Pcp PCP - General Internal Medicine 05/02/[address] [facility] [address] [place], [place] [address] Laboratory Medicine 07/19/20 documented as of this encounter
--- OUTSIDE RECORDS SUMMARY | 2023-10-26 11:05 | XMS_ITS | Encounter Summary ---
Author Name Unknown Organization [facility] Address [address] [place] [address] Care Team Providers Care Supervisor Hydrochloric Area Name Role Phone Elsewhere, Pcp Primary Care Provider Unavailabl e Reason for Visit * Reason Onset Date Comments Tacrolimus Adjustment Protocol 10/11/2023 Encounter Details Date Type Department Care Team (Latest Contact Info) Description 10/11/2023 [facility] [place] [place] [address] [place] [address] Eleni Henley [address] [place] [address] Tacrolimus Adjustment Protocol Social History Tobacco Use Types Packs/Day Years [...] 05/12/2021 How often do you attend chur or yazidi services? Never 05/12/2021 Do you belong to any clubs o r organizations such as temple groups, unions, fraternal or athletic groups, or [...] Answer Date Recorded PHQ-2 Score 0 02/27/2019 [facility] - [...] or slept in a jail (including now)? No 05/12/2021 Nutrition Answer Date [...] Master's degree (e.g., MA, MS, Young, MEd, EMU FARMER, ERNIE) 05/08/2019 Sex and Gender Information Value Date Recorded Sex Assigned at Male 05/27/2018 8:52 AM CDT Gender Identity Male 05/27/2018 8:52 AM CDT Sexual Orientation Straight 05/27/2018 8: 52 AM CDT documented as of this encounter Miscellaneous Notes * Telephone Encounter - Jose Boudreaux Pharm.D., R.Ph. - 10/11/2023 12:11 PM CST Transplanted Organ and Date:05/22/2011 (Kidney) Assistant Education Director: [facility]P POST KIDNEY NURSE TEAM 1 ROCH Active Patient Thresholds Lab Low High Effective Since Comment Tacrolimus Level 5 7 06/01/2023 9/7 per Kukla Recent Labs 10/09/23 0745 06/19/23 0740 05/30/23 0748 03/21/23 0745 01/01/23 0740 TACROLIMUS 12.5 6.4 9.0 6.7 6.6 Dose (mg) 2 mg twice daily since August 2020 Adjustment Plan: HOLD 1 dose and Continue tacrolimus 2 mg twice daily. Recheck tacrolimus level in 2-4 week(s). Many factors influence tacrolimus kinetics and it is impossible know exactly which may have randomly increased this level, assuming it is true. Let's allow some drug clearance to be sure and recheck. T RANGE [employer] ARTILLERY * Telephone Encounter - Eleni Henley R.N., C.C.T.C. - 10/11/2023 10:17 AM CST Transplanted Organ and Date:05/22/2011 (Kidney) RN coordinator: TXP POST KIDNEY NURSE TEAM 1 ROCH Active Patient Thresholds Lab Low High Effective Since Comment Tacrolimus Level 5 7 06/01/202305/31 per Riddhi Last TACrolimus level and date: Recent Labs 10/09/23 0745 TACROLIMUS 12.5 Current TACrolimus formulation and dose:2/2 Was the TACrolimus dose changed within the last 2 weeks?: No Missed doses in last week: No Medications changes in last week: No- atorvastatin dose increased Vomiting?No Diarrhea? No New onset GOMEZ? No New onset tremor? No Pharmacy patient uses for immunosuppression: [facility] Any other pertinent information related to above (please comment on any pertinent answers above)? Kam consistent with the timing of my doses, and I have had transient high tacrolimus levels before. When I re-test, the levels are back in the normal range. My meal times are also consistent (8:30am and 6:30- 7:00pm), but how much I eat in the evening does vary. I often eat less before fasting blood tests the following morning, which was the case on Sunday. Perhaps changing my tracrolimus times to9am and 9pm would be something to try? T [employer]ILLERY documented in this encounter Plan of Treatment Not on file documented as of this encounter Visit Diagnoses Not on filedocumented in this encounter Additional Health Concerns Infection Onset Date Last Indicated Resolved Time Protective Environment 01/03/2023 01/03/2023 Assessment Noted Time PHQ-9 Depression Total Score: 0 07/17/20 17 1:08 PM CDT documented as of this encounter Care Teams Supervisor Hydrochloric Area Relationship Specialty Start Date End Date Elsewhere, Pcp PCP - General Internal Medicine 05/02/22 [facility] [address] [place], [place] [address] Laboratory Medicine 07/19/20 documented as of this encounter
--- OUTSIDE RECORDS SUMMARY | 2023-10-26 11:05 | XMS_ITS | Clinical Summary ---
Author Name Unknown Organization [facility] Address [address] [place] [address] Care Team Providers Care Medication Administration Professional Name Role Phone Elsewhere, Pcp Primary Care Provider Unavailabl e Source Comments Patient records contain information from all sites at [facility]. For routine questions regarding patient records, call [phone] during business hours, M-F 8:00 AM - 5:00 PM Central Time. Record requests for emergency care only can be directed to [phone] at any time.[facility] Allergies Active Allergy Reactions Criticality Noted Date [...] sensor (FreeStyle Emeka 14 Day Sensor) kitIndications:Yaneth bradford Mellitus Type 2 With Diabetic Chronic Kidney [...] Hypertension 01/29/2004 Hyperlipidemia 01/29/2004 Encounters Date Type Department Care Team Description 10/16/2023 7:04 AM AP OPERATOR - 10/16/2023 11:59 PM [facility] Hospital Encounter Department of Laboratory Medicine and Pathology, [facility], in [place], [place] [address] [place] [address] Bryce, Howard Cox M.D. Transplant Renal (HCC) Discharge Disposition: Home or Self Care 10/15/2023 Orders Only Joey Ferrer [facility] Transplantation [facility] Clinical Regeneration in [place], [place] [address] [place] [address] Zabrina Marquez Transplant Renal (HCC) (Primary Dx) 10/11/2023 [facility] [place], [place] [address] [place] [address] Eleni Henley Tacrolimus Adjustment Protocol 10/09/2023 [facility] [place], [place] [address] [place] [address] External, Ordering ProviderJoel 10/09/2023 Orders Only Joey Ferrer [facility] Transplantation and Clinical Regeneration in [place], [place] [address] [place] [address] External, Ordering Provider, Joel 09/04/2023 2:42 PM AP OPERATOR - 09/04/2023 11:59 PM AP OPERATOR Hospital Encounter Department of Laboratory Medicine and Pathology, [facility], in [place], [place] [address] [place] [address] Howard Wu M.D. Transplant Renal (HCC) Discharge Disposition: Home or Self Care 09/03/2023 Orders Only [facility] [place], [place] [address] [place] [address] Howard Wu M.D. Transplant Renal (HCC) 08/30/2023 11:14 AM AP OPERATOR - 08/30/2023 11:59 PM AP OPERATOR Hospital Encounter Department of Radiology, [facility] in [place], [place] [address] [place] [phone] Elio Churchill Osteoporosis Discharge Disposition: Home or Self Care 08/30/2023 10:00 AM AP OPERATOR Comprehensive Visit [facility] Transplantation and Clinical Regeneration in [place], [place] [address] [place] [phone] Josette Hannon M.D. Shah, Pankaj Osteoporosis (Primary Dx); Hyperglycemia; Hyperlipidemia from Last 3 Months Immunizations Name Administration [...] often do you attend chur ch or muslim services? Never 05/12/2021 Do you belong to any clubs o r organizations such as mandaeism groups, unions, fraternal or athletic [...] Answer Date Recorded PHQ-2 Score 0 02/27/2019 [facility] [place] of Occupat ional Health - Occupational Stress [...] Master's degree (e.g., MA, MS, Young, MEd, RAIL CAR REPAIRMAN, ERNIE) 05/08/2019 Sex and Gender Information Value [...] 187.7 cm (6' 1.9) 08/30/2023 9:55 AM AP OPERATOR Body Mass Index 20.25 05/30/2023 9:00 AM CDT Plan of Treatment Health Maintenance Due Date Last Done Comments CT Colonography 1966 Cologuard 1966 FIT 1966 Hepatitis C Screening 1966 Influenza Vaccine (#1) 2023 , 07/22/2021, 07/17/2017, Additional history exists Depression Screening (Annual PHQ-2) 09/24/2023 Colonoscopy 11/03/2023 11/03/2013 Colorectal Cancer Screening 11/03/2023 Office Visit for Blood Pressure Check / Re-check 05/30/2024 05/30/2023 Fasting Glucose for Diabetes Screening 10/09/2024 10/09/2023, 10/09/2023, 06/18/2023, Additional history exists Lipid (Cholesterol) Screening 05/30/2028 05/30/2023, 03/21/2023, 05/02/2022, Additional history exists Pneumococcal vaccine (0-64 years) (4 of 4 - PPSV23 or PCV20) 2031 12/17/2018, 05/21/2013, 09/14/2008, Additional history exists DTaP,Tdap,and Td Vaccines (3 - Td or Tdap) 03/20/2033 03/20/2023, 04/18/2012, 09/24/2001 Hepatitis A Vaccines Completed 05/02/1996, 11/02/18 96 Hepatitis B Vaccines Completed 06/15/2000, 05/02/1996, 11/30/1995, Additional history exists Zoster Vaccines Completed 11/20/2018, 06/06/2018 COVID-19 Vaccine Completed 06/27/2023, , 11/08/2021, Additional history exists HPV Vaccines Aged Out No longer eligi ble based on patient's age to complete this topic Medical Devices Implanted Type Area Web Content Coordinator Device Identifier Shelf Expiration Date Model / Serial / Lot Stent Uret Dbl. J 7 X 12 - Chopra [id number] Implanted:Qty: 1 on 05/22/2011 Ureteral Stent Other/Legacy - See Implant Description Description:Device Manufactu rer - [employer]. Device Status Text - [id number]. Procedures Procedure Name Priority Date/Time Associated Diagnosis Comments EXTM ALBUMIN, RANDOM, U Routine 10/09/2023 7:50 AM AP OPERATOR EXTM HEMOGLOBIN A1C, B Routine 10/09/2023 7:45 AM AP OPERATOR EXTM MAGNESIUM, S Routine 10/09/2023 7:4 5 AM AP OPERATOR EXTM PHOSPHORUS (INORGANIC), S Routine 10/09/2023 7:45 AM AP OPERATOR EXTM GLUCOSE, RANDOM, S/P Routine 10/09/2023 7:45 AM AP OPERATOR EXTM CREATININE WITH EGFR, S/P Routine 10/09/2023 7:45 AM AP OPERATOR EXTM POTASSIUM, S/P Routine 10/09/2023 7:45 AM AP OPERATOR EXTP COMPLETE BLOOD COUNT, BLOOD Routine 10/09/2023 7:45 AM AP OPERATOR TACROLIMUS LEVEL, B Routine 10/09/2023 7:45 AM AP OPERATOR Transplant Renal (HCC) BMD BONE DENSITY SPINE HIPS RAD - Routine (most inpatients and all outpatients) 08/30/2023 11:52 AM AP OPERATOR Osteoporosis from Last 3 Months Results * EXT Albumin, Random, Urine (10/09/2023 7:50 AM AP OPERATOR) EXT Creatinine, Urine 117.0 mg/dL SCANNED REPORT EXT Microalbumin-Ra ndom, U <1 mg/dL SCANNED REPORT EXT Albumin/Creatin ine Ratio 0 0 - 30 mg/g SCANNED REPORT 10/09/2023 7:50 AM AP OPERATOR Narrative SCANNED REPORT - 10/12/2023 3:06 PM AP OPERATOR Source result document attached to Order Number [id number] ([id number]) dated 10/09/2023. External results verified in Extract by Earnestine Duran on 10/12/2023 at 03:02 PM. Ordering Provider External Jeol LAB URIN E ORDERABLES Performing Organization Address City/[facility]/ZIP Co de Phone Number SCANNED REPORT * EXT Potassium (10/09/2023 7:45 AM AP OPERATOR) Pathologist [facility] EXT Potassium 4.6 3.6 - 5.1 mmol/L SCANNED REPORT 10/09/2023 7:45 AM AP OPERATOR Narrative SCANNED REPORT - 10/12/2023 3:06 PM AP OPERATOR Source result document attached to Order Number [id number] ([id number]) dated 10/09/2023. External results verified in Extract by Earnestine Duran on 10/12/2023 at 03:02 PM. Ordering Provider Nicole Maldonado LAB BLOO D ADD-ON SCANNED REPORT * EXT Phosphorus Inorganic (10/09/2023 7:45 AM AP OPERATOR) Pathologist [facility] EXT Phosphorus (Inorganic), S 3.6 0.5 - 4.5 mg/dL SCANNED REPORT 10/09/2023 7:45 AM AP OPERATOR Narrative SCANNED REPORT - 10/12/2023 3:06 PM AP OPERATOR Source result document attached to Order Number [id number] ([id number]) dated 10/09/2023. External results verified in Extract by Earnestine Duran on 10/12/2023 at 03:02 PM. Ordering Provider Nicole Maldonado LAB BLOO D ADD-ON SCANNED REPORT * EXT Magnesium (10/09/2023 7:45 AM AP OPERATOR) EXT Magnesium 1.8 1.5 - 2.6 mg/dL SCANNED REPORT 10/09/2023 7:45 AM AP OPERATOR Narrative SCANNED REPORT - 10/12/2023 3:06 PM AP OPERATOR Source result document attached to Order Number [id number] ([id number]) dated 10/09/2023. External results verified in Extract by Earnestine Duran on 10/12/2023 at 03:02 PM. Ordering Provider Nicole Maldonado LAB BLOO [place]on ADD-ON Performing Organization Address City/[facility]/ZIP Co de Phone Number SCANNED REPORT * (ABNORMAL) EXT Hemoglobin A1c (10/09/2023 7:45 AM AP OPERATOR) EXT Hemoglobin A1c, B 6.7(H) 0 - 5.6 % SCANNED REPORT 10/09/2023 7:45 AM AP OPERATOR Narrative SCANNED REPORT - 10/15/2023 8:26 AM AP OPERATOR External results verified in Extract by Patricia Allen on 10/15/2023 at 08:22 AM. Ordering Provider Nicole Maldonado LAB BLOO Sheldon ADD-ON SCANNED REPORT * (ABNORMAL) EXT Glucose, Random (10/09/2023 7:45 AM AP OPERATOR) EXT Glucose 169(H) 60 - 115 mg/dL SCANNED REPORT 10/09/2023 7:45 AM AP OPERATOR Narrative SCANNED REPORT - 10/12/2023 3:06 PM AP OPERATOR Source result document attached to Order Number [id number] ([id number]) dated 10/09/2023. External results verified in Extract by Earnestine Duran on 10/12/2023 at 03:02 PM. Ordering Provider Nicole Maldonado LAB BLOO D TROPONIN Performing Organization Address City/[facility]/ZIP Co de Phone Number SCANNED REPORT * (ABNORMAL) EXT Creatinine with Estimated GFR (10/09/2023 7:45 AM AP OPERATOR) [facility] EXT Creatinine 1.8(H) 0.5 - 1.5 mg/dL SCANNED REPORT EXT Estimated GFR (eGFR) 44 ml/min SCANNED REPORT 10/09/2023 7:45 AM AP OPERATOR Narrative SCANNED REPORT - 10/12/2023 3:06 PM AP OPERATOR Source result document attached to Order Number [id number] ([id number]) dated 10/09/2023. External results verified in Extract by Earnestine Duran on 10/12/2023 at 03:02 PM. Ordering Provider Nicole GUERRERO D ADD-ON Performing Organization Address [facility] de Phone Number SCANNED REPORT * (ABNORMAL) EXT Complete Blood Count, Blood (10/09/2023 7:45 AM AP OPERATOR) Pathologist [facility] EXT Leukocytes 3.29(L) 4.50 - 11.00 K/uL [...] 0.30 K/uL SCANNED REPORT 10/09/2023 7:45 AM AP OPERATOR Narrative SCANNED REPORT - 10/12/2023 3:06 PM AP OPERATOR External results verified in Extract by Earnestine Duran on 10/12/2023 at 03:02 PM. Ordering Provider External M.DKg LAB BLOO D NON ADD-ON SCANNED REPORT * Tacrolimus, B (10/09/2023 7:45 AM AP OPERATOR) Tacrolimus, Trough 12.5 5.0-15.0 (Trough) ng/mL 10/10/2023 10:03 AM AP OPERATOR [facility] Comment: ----ADDITIONAL INFORMATION---- Target steady-state trough concentrations vary depending on the type of transplant, concomitant immunosuppression, clinical/institutional protocols, and time post-transplant. Results should be interpreted in conjunction with this clinical information and any physical signs/symptoms of rejection/toxicity. Testing performed by Liquid Chromatography-Tandem Mass Spectrometry (LC-MS/MS). This test was developed and its performance characteristics determined by [facility] in a manner consistent with CLIA requirements. This test has not been cleared or approved by the U.S. Food and Drug Administration. Blood (Blood, Venous) 10/09/2023 7:45 AM AP OPERATOR 10/10/2023 7:07 AM AP OPERATOR Howard Wu M.D. LAB BLOOD NON ADD-ON [facility] [address] [place] [address] [facility] [address] [place] [address] * BMD Bone Density Spine Hips (08/30/2023 11:52 AM AP OPERATOR) Anatomical Region Laterality Modality Hip, Lumbar Spine, Nuclear M edicine RST LOS, Musculoskeletal ARZ LOS, Muskuloskeletal FLA LOS N/A Radio graphic Imaging 08/30/2023 11:5 4 AM AP OPERATOR Impressions 08/30/2023 11:56 AM AP OPERATOR Osteoporosis DualFemur (region: Neck Left) Osteoporosis DualFemur (region: Neck Right) ?? Narrative 08/30/2023 11:56 AM AP OPERATOR EXAM: ??BMD BONE DENSITY SPINE HIPS Bone Mineral Density (BMD) analysis performed on [employer] with serial number [id number]. COMPARISON: Serial Comparisons Left Total Hip results: [...] Bone Mineral Density (BMD) analysis performed on [employer] with serialnumber [id number]. COMPARISON: Serial Comparisons Left Total Hip results: [...] report, including images and graphs,is available in [email or web address]. In the absence of other causes of [...] Left) Osteoporosis DualFemur (region: Neck Right) Elio LOPEZ DXA PROCEDURES from Last 3 Months Additional Health Concerns Infection Onset Date Last Indicated Protective Environment 01/03/2023 3 Advance Directives For more information, please contact: [phone] Documents on File Type Date Recorded Patient Vaccinator Expl anation Advance Directives 10/15/2019 9:33 AM Heal th Care Directive Advance Directives 11/30/2010 12:00 AM [place] document. See document viewer. Healthcare Agents on File Name Relationship Healthcare Agent [facility] Communication Ameeta Humberto Spouse Health Care Agent Guido Morocho First Alternate Health Care Agent Jose Raul Morocho Second Alternate Health Care Agent Care Teams Medication Administration Professional Relationship Specialty Start Date End Date Elsewhere, Pcp PCP - General Internal Medicine 05/02/22 [facility] [address] [place], [place] [address] Laboratory Medicine 07/19/20
--- OUTSIDE RECORDS SUMMARY | 2023-10-26 11:05 | XMS_ITS | Encounter Summary ---
Author Name Unknown Organization [facility] Address [address] [place] [address] Care Team Providers Care Scrub Technician Name Role Phone Elsewhere, Pcp Primary Care Provider Unavailabl e Encounter Details Date Type Department Care Team (Late st Contact Info) Description 10/09/2023 Orders Only Joey christina [facility] in [place], [place] [address] [place] [phone] External, Ordering ProviderJoel Social History Tobacco Use [...] often do you attend chur ch or mu-ism services? Never 05/12/2021 Do you belong to any clubs o r organizations such as jainism groups, unions, fraternal or athletic [...] Answer Date Recorded PHQ-2 Score 0 02/27/2019 [facility] [place] of Occupat ional Health - Occupational Stress [...] slept in a nursing home (including now)? No 05/12/2021 Nutrition Answer Date [...] Master's degree (e.g., MA, MS, Young, MEd, MANAGER INTEGRITY, ERNIE) 05/08/2019 Sex and Gender Information Value [...] ALBUMIN, RANDOM, U Routine 10/09/2023 7:50 AM SALON LEADER EXTM POTASSIUM, S/P Routine 10/09/2023 7 :45 AM SALON LEADER EXTM PHOSPHORUS (INORGANIC), S Routine 10/09/2023 7:45 AM SALON LEADER EXTM MAGNESIUM, S Routine 10/09/2023 7:4 5 AM SALON LEADER EXTM GLUCOSE, RANDOM, S/P Routine 10/09/2023 7:45 AM SALON LEADER EXTM CREATININE WITH EGFR, S/P Routine 10/09/2023 7:45 AM SALON LEADER EXTP COMPLETE BLOOD COUNT, BLOOD Routine 10/09/2023 7:45 AM SALON LEADER documented in this encounter Results * EXT Albumin, Random, Urine (10/09/2023 7:50 AM SALON LEADER) EXT Creatinine, Urine 117.0 mg/dL SCANNED REPORT EXT Microalbumin-Ra ndom, U <1 mg/dL SCANNED REPORT EXT Albumin/Creatin ine Ratio 0 0 - 30 mg/g SCANNED REPORT 10/09/2023 7:50 AM SALON LEADER Narrative SCANNED REPORT - 10/12/2023 3:06 PM SALON LEADER Source result document attached to Order Number [id number] ([id number]) dated 10/09/2023. External results verified in Extract by Earnestine Duran on 10/12/2023 at 03:02 PM. Ordering Provider External Joel LAB URIN E ORDERABLES SCANNED REPORT * EXT Magnesium (10/09/2023 7:45 AM SALON LEADER) Pathologist [facility] EXT Magnesium 1.8 1.5 - 2.6 mg/dL SCANNED REPORT 10/09/2023 7:45 AM SALON LEADER Narrative SCANNED REPORT - 10/12/2023 3:06 PM SALON LEADER Source result document attached to Order Number [id number] ([id number]) dated 10/09/2023. External results verified in Extract by Earnestine Duran on 10/12/2023 at 03:02 PM. Ordering Provider External Joel LAB BLOO D ADD-ON SCANNED REPORT * EXT Phosphorus Inorganic (10/09/2023 7:45 AM SALON LEADER) Pathologist [facility] EXT Phosphorus (Inorganic), S 3.6 0.5 - 4.5 mg/dL SCANNED REPORT 10/09/2023 7:45 AM SALON LEADER Narrative SCANNED REPORT - 10/12/2023 3:06 PM SALON LEADER Source result document attached to Order Number [id number] ([id number]) dated 10/09/2023. External results verified in Extract by Earnestine Duran on 10/12/2023 at 03:02 PM. Ordering Provider Nicole Maldonado LAB BLOO D ADD-ON Performing Organization Address [facility]/ZIP Co de Phone Number SCANNED REPORT * (ABNORMAL) EXT Glucose, Random (10/09/2023 7:45 AM SALON LEADER) EXT Glucose 169(H) 60 - 115 mg/dL SCANNED REPORT 10/09/2023 7:45 AM SALON LEADER Narrative SCANNED REPORT - 10/12/2023 3:06 PM SALON LEADER Source result document attached to Order Number [id number] ([id number]) dated 10/09/2023. External results verified in Extract by Earenstine Duran on 10/12/2023 at 03:02 PM. Ordering Provider External Joel LAB YOLANDA Chung TROPONIN Performing Organization Address [facility] Co de Phone Number SCANNED REPORT * (ABNORMAL) EXT Creatinine with Estimated GFR (10/09/2023 7:45 AM SALON LEADER) EXT Creatinine 1.8(H) 0.5 - 1.5 mg/dL SCANNED REPORT EXT Estimated GFR (eGFR) 44 ml/min SCANNED REPORT 10/09/2023 7:45 AM SALON LEADER Narrative SCANNED REPORT - 10/12/2023 3:06 PM SALON LEADER Source result document attached to Order Number [id number] ([id number]) dated 10/09/2023. External results verified in Extract by Earnestine Duran on 10/12/2023 at 03:02 PM. Ordering Provider Nicole Maldonado LAB BLOO D ADD-ON Performing Organization Address [facility]/ZIP Co de Phone Number SCANNED REPORT * EXT Potassium (10/09/2023 7:45 AM SALON LEADER) EXT Potassium 4.6 3.6 - 5.1 mmol/L SCANNED REPORT 10/09/2023 7:45 AM SALON LEADER Narrative SCANNED REPORT - 10/12/2023 3:06 PM SALON LEADER Source result document attached to Order Number [id number] ([id number]) dated 10/09/2023. External results verified in Extract by Earnestine Duran on 10/12/2023 at 03:02 PM. Ordering Provider Nicole Chung ADD-ON SCANNED REPORT * (ABNORMAL) EXT Complete Blood Count, Blood (10/09/2023 7:45 AM SALON LEADER) EXT Leukocytes 3.29(L) 4.50 - 11.00 K/uL [...] 0.30 K/uL SCANNED REPORT 10/09/2023 7:45 AM SALON LEADER Narrative SCANNED REPORT - 10/12/2023 3:06 PM SALON LEADER External results verified in Extract by Earnestine Duran on 10/12/2023 at 03:02 PM. Ordering Provider Nicole MONTANEZ ADD-ON SCANNED REPORT documented in this encounter Visit Diagnoses Not on filedocumented in this encounter Additional Health Concerns Infection Onset Date Last Indicated Resolved Time Protective Environment 01/03/2023 01/03/2023 Assessment Noted Time PHQ-9 Depression Total Score: 0 07/17/20 17 1:08 PM CDT documented as of this encounter Care Teams Scrub Technician Relationship Specialty Start Date End Date Elsewhere, Pcp PCP - General Internal Medicine 05/02/22 [facility] [address] [place], [place] [address] Laboratory Medicine 07/19/20 documented as of this encounter
--- OUTSIDE RECORDS SUMMARY | 2023-10-26 11:06 | XMS_ITS | Encounter Summary ---
Author Name Unknown Organization [facility] Address [address] [place] [address] Care Team Providers Care Product Safety Coordinator Name Role Phone Elsewhere, Pcp Primary Care Provider Unavailabl e Encounter Details Date Type Department Care Team (Late st Contact Info) Description 06/18/2023 Orders Only Joey christina [facility] in [place], [place] [address] [place] [phone] External, Ordering ProviderJoel Social History Tobacco Use [...] often do you attend chur ch or taoist services? Never 05/12/2021 Do you belong to any clubs o r organizations such as mormonism groups, unions, fraternal or athletic [...] Answer Date Recorded PHQ-2 Score 0 02/27/2019 [facility] [place] of Occupat ional Health - Occupational [...] or slept in a long-term (including now)? No 05/12/2021 Nutrition Answer Date [...] degree (e.g., MA, MS, Young, MEd, SUPERVISOR ELECTRONICS PROCESSING, ERNIE) 05/08/2019 Sex and Gender Information Value Date Recorded Sex Assigned at Male 05/27/2018 8:52 AM CDT Gender Identity Male 05/27/2018 8:52 AM CDT Sexual Orientation Straight 05/27/2018 8: 52 AM CDT documented as of this encounter Plan of Treatment Not on file documented as of this encounter Procedures Procedure Name Priority Date/Time Associated Diagnosis Comments EXTM ALBUMIN, RANDOM, U Routine 06/19/2023 7:45 AM CDT EXTP COMPLETE BLOOD COUNT, BLOOD Routine 06/19/2023 7:40 AM CDT EXTM POTASSIUM, S/P Routine 06/18/2023 7 :40 AM CDT EXTM PHOSPHORUS (INORGANIC), S Routine 06/18/2023 7:40 AM CDT EXTM MAGNESIUM, S Routine 06/18/2023 7:4 0 AM CDT EXTM GLUCOSE, RANDOM, S/P Routine 06/18/2023 7:40 AM CDT EXTM CREATININE WITH EGFR, S/P Routine 06/18/2023 7:40 AM CDT documented in this encounter Results * EXT Albumin, Random, Urine (06/19/2023 7:45 AM CDT) EXT Creatinine, Urine 80.0 mg/dL [facility] EXT Microalbumin-R andom, U <1 mg/dL [facility] EXT Albumin/Creati nine Ratio 10 0 - 30 MG/G [facility] 06/19/2023 7:45 AM CDT Narrative [facility] - 06/20/2023 3:41 PM CDT Source result document attached to Order Number [id number] ([id number]) dated 06/18/2023. External results verified in Extract by Patricia Allen on 06/20/2023 at 03:37 PM. Ordering Provider External M.D. LAB URIN E ORDERABLES Performing Organization Address City/State/[facility] Co de Phone Number [facility] [address] [place] [address] * (ABNORMAL) EXT Complete Blood Count, Blood (06/19/2023 7:40 AM CDT) [facility] EXT Leukocytes 3.70(L) 4.50 - 11.00 K/uL [facility] EXT RBC 4.30 4.30 - 5.90 m/uL [facility] EXT Hemoglobin 13.9 13.5 - 17.5 gm/dL [facility] EXT Hematocrit 40.8 37.0 - 53.0 % [facility] EXT MCV 95 80 - 100 fL [facility] EXT Platelet Count 181 140 - 440 K/uL [facility] EXT RDW 12.8 11.5 - 15.5 % [facility] EXT Neutrophils 2.30 1.7 - 7.0 K/uL [facility] EXT Lymphocytes 1.00 0.90 - 2.90 K/uL [facility] EXT Monocytes 0.40 0.00 - 0.90 K/UL [facility] EXT Eosinophils 0.00 0.00 - 0.50 K/uL [facility] EXT Basophils 0.00 0.00 - 0.30 K/uL [facility] 06/19/2023 7:40 AM CDT [facility] - 06/20/2023 3:41 PM CDT Source result document attached to Order Number [id number] ([id number]) dated 06/18/2023. External results verified in Extract by Patricia Allen on 06/20/2023 at 03:37 PM. Ordering Provider External Joel LAB BLOO D NON ADD-ON Performing Organization Address [facility]/ZIP Co de Phone Number [facility] [address] [phone] * EXT Magnesium (06/18/2023 7:40 AM CDT) EXT Magnesium 2.0 1.5 - 2.6 mg/dL [facility] 06/18/2023 7:40 AM CDT [facility] - 06/20/2023 3:41 PM CDT Source result document attached to Order Number [id number] ([id number]) dated 06/18/2023. External results verified in Extract by Patricia Allen on 06/20/2023 at 03:37 PM. Ordering Provider External Joel LAB BLOO D ADD-ON Performing Organization Address [facility]/ZIP Co de Phone Number [facility] [address] [phone] * EXT Phosphorus Inorganic (06/18/2023 7:40 AM CDT) EXT Phosphorus (Inorganic), S 3.2 2.5 - 4.5 mg/dL [facility] 06/18/2023 7:40 AM CDT [facility] - 06/20/2023 3:41 PM CDT Source result document attached to Order Number [id number] ([id number]) dated 06/18/2023. External results verified in Extract by Patricia Allen on 06/20/2023 at 03:37 PM. Ordering Provider External Joel LAB BLOO D ADD-ON [facility] [address] [phone] * (ABNORMAL) EXT Glucose, Random (06/18/2023 7:40 AM CDT) EXT Glucose 153(H) 60 - 115 mg/dL [facility] 06/18/2023 7:40 AM CDT [facility] - 06/20/2023 3:41 PM CDT Source result document attached to Order Number [id number] ([id number]) dated 06/18/2023. External results verified in Extract by Patricia Allen on 06/20/2023 at 03:37 PM. Ordering Provider External Joel LAB BLOO D TROPONIN Performing Organization Address [facility]/ZIP Co de Phone Number [facility] [address] [phone] * EXT Creatinine with Estimated GFR (06/18/2023 7:40 AM CDT) EXT Creatinine 1.5 0.5 - 1.5 mg/dL [facility] EXT Estimated GFR (eGFR) 54 ml/min [facility] 06/18/2023 7:40 AM CDT [facility] - 06/20/2023 3:41 PM CDT Source result document attached to Order Number [id number] ([id number]) dated 06/18/2023. External results verified in Extract by Patricia Allen on 06/20/2023 at 03:37 PM. Ordering Provider External Joel LAB BLOO D ADD-ON Performing Organization Address City/[facility]/ZIP Co de Phone Number [facility] [address] [phone] * EXT Potassium (06/18/2023 7:40 AM CDT) EXT Potassium 4.3 3.6 - 5.1 mmol/L [facility] 06/18/2023 7:40 AM CDT Narrative [facility] - 06/20/2023 3:41 PM CDT External results verified in Extract by Patricia Allen on 06/20/2023 at 03:37 PM. Ordering Provider External MTereso LAB BLOO D ADD-ON [facility] [address] [place] [id number] [phone] documented in this encounter Visit Diagnoses Not on filedocumented in this encounter Additional Health Concerns Infection Onset Date Last Indicated Resolved Time Protective Environment 01/03/2023 01/03/2023 Assessment Noted Time PHQ-9 Depression Total Score: 0 07/17/20 17 1:08 PM CDT documented as of this encounter Care Teams Product Safety Coordinator Relationship Specialty Start Date End Date Elsewhere, Pcp PCP - General Internal Medicine 05/02/22 [facility] [address] [address] Laboratory Medicine 07/19/20 documented as of this encounter
--- OUTSIDE RECORDS SUMMARY | 2023-10-26 11:06 | XMS_ITS | Encounter Summary ---
Author Name Unknown Organization [facility] Address [address] [place] [address] Care Team Providers Care Center Consultant Name Role Phone Elsewhere, Pcp Primary Care Provider Unavailabl e Reason for Visit * Reason Comments Med Refill Encounter Details Date Type Department Care Team (Late st Contact Info) Description 06/27/2023 Refill Division of Nephrology and Hypertension in [place], [place] [address] [place] [address] Josette Hannon M.D. [address] [place] [address] Med Refill Social History Tobacco Use Types Packs/Day Years [...] week 05/12/2021 How often do you attend [facility] or sikhism services? Never 05/12/2021 Do you belong to any clubs o r organizations such as druze groups, unions, fraternal or athletic [...] Date Recorded PHQ-2 Score 0 02/27/2019 [facility] of Occupat ional Health - Occupational [...] or slept in a fci (including now)? No 05/12/2021 Nutrition Answer Date [...] Master's degree (e.g., MA, MS, Young, MEd, FOOD SERVICE CASHIER, ERNIE) 05/08/2019 Sex and Gender Information Value [...] documented as of this encounter Care Teams Center Consultant Relationship Specialty Start Date End Date Elsewhere, Pcp PCP - General Internal Medicine 05/02/22 [facility] [address], [place] [id number] Laboratory Medicine 07/19/20 documented as of this encounter
--- OUTSIDE RECORDS SUMMARY | 2023-10-26 11:06 | XMS_ITS | Encounter Summary ---
Author Name Unknown Organization [facility] Address [address] [place] [address] Care Team Providers Care Front End Drupal Developer Name Role Phone Elsewhere, Pcp Primary Care Provider Unavailabl e Reason for Referral * Outpatient (Routine) - Closed Specialty Diagnoses / Procedures Referred By Samantha limon Referred To Contact Diagnoses Transplant Renal (HCC) Procedures DX Chest AP or PA and Lateral 2 Views Josette Hannon M.D. [address] [place] [address] [facility] Referral ID Status Reason Start Date Expiration Date Visits Re quested Visits Authorized [id number] Closed 03/14/2023 03/13/2024 1 1 Reason for Visit * Outpatient (Routine) - Closed Specialty Diagnoses / Procedures Referred By Samantha limon Referred To Contact Diagnoses Transplant Renal (HCC) Procedures DX Chest AP or PA and Lateral 2 Views Josette Hannon M.D. [address] [place] [address] [facility] Referral ID Status Reason Start Date Expiration Date Visits Re quested Visits Authorized [id number] Closed 03/14/2023 03/13/2024 1 1 Encounter Details Date Type Department Care Team (Latest Contact Info) Description 05/30/2023 8:11 AM CDT - 05/30/2023 9:15 AM CDT Hospital Encounter Department of Radiology, [facility], in [place], [place] [address] [place] [address] Josette Hannon M.D. [address] [place] [phone] Transplant Renal (HCC) Discharge Disposition: Home or [...] often do you attend chur ch or scientology services? Never 05/12/2021 Do you belong to any clubs o r organizations such as adventism groups, unions, fraternal or athletic [...] Answer Date Recorded PHQ-2 Score 0 02/27/2019 [facility] - Occupational Stress Questionnaire Answer Date Recorded [...] slept in a senior living (including now)? No 05/12/2021 Nutrition Answer Date [...] Master's degree (e.g., MA, MS, Young, MEd, GEM SETTER, ERNIE) 05/08/2019 Sex and Gender Information Value [...] A WEEK. 12 tablet 3 05/17/2023 05/16/2024 calcium carbonate-vit D3-min 600 mg calcium- 400 unit tablet Take 1 tablet by mouth daily. 6 0 06/30/2015 Lactobacillus acidophilus (PROBIOTIC ORAL) Take 1 tablet by mouth daily. 0 omega-3 fatty acids-fish oil 300-1,000 mg per capsule Take 1 capsule by mouth daily. 0 05/23/2016 tacrolimus (PROGRAF) 1 mg capsuleIndications:Tra nsplant Renal (HCC) TAKE TWO CAPSULES BY MOUTH TWICE A DAY. 360 capsule 3 05/16/2023 atorvastatin (LIPITOR) 20 mg tablet Take 1 tablet (20 mg total) by mouth daily. 90 tablet 3 05/31/2018 08/30/2023 FreeStyle Emeka 14 Day Sensor kitIndications:Diabete s Mellitus Type 2 With Diabetic Chronic Kidney Disease (HCC) PLACE 1 SENSOR DIRECTED AND CHANGE EVERY 14 DAYS 1 kit 3 12/15/2022 08/17/2023 mycophenolate (CELLCEPT) 250 mg capsuleIndications:Tra nsplant Renal (HCC) TAKE 2 CAPSULES BY MOUTH IN THE MORNING AND 1 CAPSULE BY MOUTH IN THE PM TEVA BRAND 270 capsule 2 12/12/2022 06/20/2023 predniSONE (DELTASONE) 5 mg tabletIndications:Reynolds splant Renal (HCC) TAKE 1 TABLET BY MOUTH ONCE DAILY. 90 tablet 3 09/21/2022 06/20/2023 documented as of this encounter Plan of Treatment Not on file documented as of this encounter Procedures Procedure Name Priority Date/Time Associated Diagnosis Comments DX CHEST AP OR PA AND LATERAL 2 VIEWS RAD - Routine (most inpatients and all outpatients) 05/30/2023 12:34 PM CDT Transplant Renal (HCC) documented in this encounter Results * DX Chest AP or PA and Lateral 2 Views (05/30/2023 12:34 PM CDT) Anatomical Region Laterality Modality Chest, Thoracic RST LOS, Tho racic ARZ LOS, Thoracic FLA LOS N/A Digital Radiography 05/30/2023 12:5 7 PM CDT Impressions 05/30/2023 12:58 PM CDT No change since 05/02/2022. Deep inspiration or hyperinflation. Chest otherwise negative. Narrative 05/30/2023 12:58 PM CDT EXAM: ??DX CHEST AP OR PA AND LATERAL 2 VIEWS Procedure Note Kylie Naranjo M.D. - 05/30/2023 EXAM: DX CHEST AP OR PA AND LATERAL 2 VIEWS IMPRESSION: No change since 05/02/2022. Deep inspiration or hyperinflation. Chestotherwise negative. Josette Hannon M.D. [facility] PROCEDURES documented in this encounter Visit Diagnoses Diagnosis Transplant Renal (HCC) documented in this encounter Additional Health Concerns Infection Onset Date Last Indicated Resolved Time Protective Environment 01/03/2023 01/03/2023 Assessment Noted Time PHQ-9 Depression Total Score: 0 07/17/20 17 1:08 PM CDT documented as of this encounter Care Teams Front End Drupal Developer Relationship Specialty Start Date End Date Elsewhere, Pcp PCP - General Internal Medicine 05/02/22 [facility] [address] [place], [place] [address] Laboratory Medicine 07/19/20 documented as of this encounter
--- OUTSIDE RECORDS SUMMARY | 2023-10-26 11:06 | XMS_ITS | Encounter Summary ---
Author Name Unknown Organization [facility] Address [address] [place] [address] Care Team Providers Care Sales And Distribution Clerk Name Role Phone Elsewhere, Pcp Primary Care Provider Unavailabl e Encounter Details Date Type Department Care Team (Late st Contact Info) Description 06/26/2023 Orders Only Joey Gordillo [facility] in [place], [place] [address] [place] [phone] Josette Hannon M.D. [address] [place] [address] Diabetes Mellitus Type 2 With Diabetic Chronic Kidney Disease (HCC) Social History Tobacco Use Types Packs/Day Years [...] week 05/12/2021 How often do you attend [facility] or samaritan services? Never 05/12/2021 Do you belong to [...] Answer Date Recorded PHQ-2 Score 0 02/27/2019 [facility] of Occupat ional Health - [...] or slept in a custodial (including now)? No 05/12/2021 Nutrition Answer Date [...] degree (e.g., MA, MS, Young, MEd, MANAGER RADIATION, ERNIE) 05/08/2019 Sex and Gender Information Value Date Recorded Sex Assigned at Male 05/27/2018 8:52 AM CDT Gender Identity Male 05/27/2018 8:52 AM CDT Sexual Orientation Straight 05/27/2018 8: 52 AM CDT documented as of this encounter Plan of Treatment Not on file documented as of this encounter Visit Diagnoses Diagnosis Diabetes Mellitus Type 2 With Diabetic Chronic Kidney Disease (HCC) documented in this encounter Additional Health Concerns Infection Onset Date Last Indicated Resolved Time Protective Environment 01/03/2023 01/03/2023 Assessment Noted Time PHQ-9 Depression Total Score: 0 07/17/20 17 1:08 PM CDT documented as of this encounter Care Teams Sales And Distribution Clerk Relationship Specialty Start Date End Date Elsewhere, Pcp PCP - General Internal Medicine 05/02/22 [facility] [address] [place], [place] [address] Laboratory Medicine 07/19/20 documented as of this encounter
--- OUTSIDE RECORDS SUMMARY | 2023-10-26 11:06 | XMS_ITS | Encounter Summary ---
Author Name Unknown Organization [facility] Address [address] [place] [address] Care Team Providers Care Quick Technician Name Role Phone Elsewhere, Pcp Primary Care Provider Unavailabl e Reason for Referral * Outpatient (Routine) - Closed Specialty Diagnoses / Procedures Referred By Samantha limon Referred To Contact Diagnoses Transplant Renal (HCC) Procedures Short renal clearance: Iothalamate (Renal Studies Unit) Josette Hannon M.D. 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 [address] [place] [address] [facility] Referral ID Status Reason Start Date Expiration Date Visits Re quested Visits Authorized [id number] Closed 03/14/2023 03/13/2024 1 1 Encounter Details Date Type Department Care Team (Latest Contact Info) Description 05/30/2023 9:16 AM CDT - 05/30/2023 11:59 PM CDT Hospital Encounter Department of Laboratory Medicine and Pathology, [facility] in [place], [place] [address] [place] [address] Josette Hannon M.D. [address] [place] [address] Transplant Renal (HCC) Discharge Disposition: Home or [...] often do you attend chur ch or sikh services? Never 05/12/2021 Do you belong to any clubs o r organizations such as latter day groups, unions, fraternal or [...] Answer Date Recorded PHQ-2 Score 0 02/27/2019 [facility] of Occupat ional Health - Occupational Stress [...] or slept in a fpc (including now)? No 05/12/2021 Nutrition Answer Date [...] Master's degree (e.g., MA, MS, Young, MEd, FARM MACHINERY SET UP MECHANIC, ERNIE) 05/08/2019 Sex and Gender Information Value [...] - Inhaled Oxygen Concentration - - Weight 68.5 kg (151 lb 0.2 oz) 05/30/2023 9:00 A M CDT Height 185 cm (6' 0.84) 05/30/2023 9:00 AM CDT Body Mass Index 20.01 05/30/2023 9:00 AM CDT documented in this encounter Medications [...] Type Priority Associated Diagnoses Orde r Schedule Short renal clearance: Iothalamate (Renal Studies Unit) Procedures Routine Transplant Renal (HCC) Once for 1 Occurrences starting 05/30/2023 until 05/30/2023 documented as of this encounter Procedures Procedure Name Priority Date/Time Associated Diagnosis Comments IOTHALAMATE, GLOMERULAR FILTRATION RATE, P Routine 05/30/2023 9:29 AM CDT documented in this encounter Results * (ABNORMAL) Iothalamate, Glomerular Filtration Rate (05/30/2023 9:29 AM CDT) Uncorrctd Iothal Cl 57 mL/min 06/05 7:43 AM CDT VAN Corrctd Iothal Cl 52(L) 69 - 123 mL/min/BS A 06/05/2023 7:43 AM CDT VAN Comment: ----ADDITIONAL INFORMATION---- This test was developed and its performance characteristics determined by [facility] in a manner consistent with CLIA requirements. This test has not been cleared or approved by the U.S. Food and Drug Administration. Blood (Blood, Venous) 05/30/2023 9:29 AM CDT 05/30/2023 12:01 PM CDT Narrative [facility] - 06/05/2023 7:43 AM CDT Specimen Information: Specimen ID: [id number] Specimen Collection Start Date: 05/30/2023 ??9:29 AM Specimen Received Date: 05/30/2023 12:01 PM Specimen ID: [id number] Specimen Collection Start Date: 05/30/2023 10:32 AM Specimen Received Date: 05/30/2023 12:01 PM Specimen ID: [id number] Specimen Collection Start Date: 05/30/2023 11:17 AM Specimen Received Date: 05/30/2023 12:01 PM Specimen ID: [id number] Specimen Collection Start Date: 05/30/2023 10:35 AM Specimen Received Date: 05/30/2023 12:00 PM Specimen ID: [id number] Specimen Collection Start Date: 05/30/2023 11:21 AM Specimen Received Date: 05/30/2023 12:01 PM Josette Hannon M.D. LAB BLOOD NON ADD- ON [facility] [address] [place] [address], [facility] [address] [place] [address] 200 [place] [address] documented in this encounter Visit Diagnoses Diagnosis Transplant Renal (HCC) documented in this encounter Administered Medications Inactive Administered Medications - up to 3 most recent administrations Medication Order MAR Action Action Date Dose Rate Site iothalamate meglumine 30 % injection 1 mL (CONRAY 30) 1 mL, subcutaneous, Once, On Sun05/30/23 at 0945, For 1 dose Given 05/30/2023 9:33 AM CDT 1 mL Left Upper Arm (Back) documented in this encounter Additional Health Concerns Infection Onset Date Last Indicated Resolved Time Protective Environment 01/03/2023 01/03/2023 Assessment Noted Time PHQ-9 Depression Total Score: 0 07/17/20 17 1:08 PM CDT documented as of this encounter Care Teams Quick Technician Relationship Specialty Start Date End Date Elsewhere, Pcp PCP - General Internal Medicine 05/02/22 [facility] [address] [place], [place] [address] Laboratory Medicine 07/19/20 documented as of this encounter
--- OUTSIDE RECORDS SUMMARY | 2023-10-26 11:06 | XMS_ITS | Encounter Summary ---
Author Name Unknown Organization [facility] Address [address] [place] [id number] Care Team Providers Care Slag Mixer Name Role Phone Elsewhere, Pcp Primary Care Provider Unavailabl e Encounter Details Date Type Department Care Team (Latest Contact Info) Description 09/04/2023 2:42 PM COLOR BUFFER - 09/04/2023 11:59 PM COLOR BUFFER Hospital Encounter Department of Laboratory Medicine and Pathology, [facility] in [place], [place] [address] [place] [address] BryceHoward M.D. [address] [place] [address] Transplant Renal (HCC) Discharge Disposition: Home or [...] any clubs o r organizations such as mandaen groups, unions, fraternal or athletic [...] Answer Date Recorded PHQ-2 Score 0 02/27/2019 [facility] - Occupational [...] Master's degree (e.g., MA, MS, Young, MEd, NIGHTMAN, ERNIE) 05/08/2019 Sex and Gender Information Value [...] Procedure Name Priority Date/Time Associated Diagnosis Comments TACROLIMUS LEVEL, B Routine 10/09/2023 7 :45 AM COLOR BUFFER Transplant Renal (HCC) documented in this encounter Results * Tacrolimus, B (10/09/2023 7:45 AM COLOR BUFFER) Tacrolimus, Trough 12.5 5.0-15.0 (Trough) ng/mL 10/10/2023 10:03 AM COLOR BUFFER [facility] Comment: ----ADDITIONAL INFORMATION---- Target steady-state trough concentrations vary depending on the type of transplant, concomitant immunosuppression, clinical/institutional protocols, and time post-transplant. Results should be interpreted in conjunction with this clinical information and any physical signs/symptoms of rejection/toxicity. Testing performed by Liquid Chromatography-Tandem Mass Spectrometry (LC-MS/MS). This test was developed and its performance characteristics determined by [facility] in a manner consistent with CLIA requirements. This test has not been cleared or approved by the U.S. Food and Drug Administration. Blood (Blood, Venous) 10/09/2023 7:45 AM COLOR BUFFER 10/10/2023 7:07 AM COLOR BUFFER Howard G Bryce M.D. LAB BLOOD NON ADD-ON [facility] [address] [place] [address] [facility] [address] [place] [address] [place] [address] documented in this encounter Visit Diagnoses Diagnosis Transplant Renal (HCC) documented in this encounter Additional Health Concerns Infection Onset Date Last Indicated Resolved Time Protective Environment 01/03/2023 01/03/2023 Assessment Noted Time PHQ-9 Depression Total Score: 0 07/17/20 17 1:08 PM CDT documented as of this encounter Care Teams Slag Mixer Relationship Specialty Start Date End Date Elsewhere, Pcp PCP - General Internal Medicine 05/02/22 [facility] [address] [place], [place] [address] Laboratory Medicine 07/19/20 documented as of this encounter
--- OUTSIDE RECORDS SUMMARY | 2023-10-26 11:06 | XMS_ITS | Encounter Summary ---
Author Name Unknown Organization [facility] Address [address] [place] [id number] Care Team Providers Care Grades 7 8 Tutor Name Role Phone Elsewhere, Pcp Primary Care Provider Unavailabl e Encounter Details Date Type Department Care Team (Late st Contact Info) Description 06/01/2023 Orders Only Jeoy christina [facility] in [place], [place] [address] [place] [phone] Lucia Castillo R.N., C.C.T.C. 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 or caodaism services? Never 05/12/2021 Do you belong to any clubs o r organizations such as religious groups, unions, fraternal or athletic [...] Answer Date Recorded PHQ-2 Score 0 02/27/2019 [facility] of Occupat ional Health - Occupational [...] or slept in a mcc (including now)? No 05/12/2021 Nutrition Answer Date [...] Master's degree (e.g., MA, MS, Young, MEd, HYPERBARIC TECH, ERNIE) 05/08/2019 Sex and Gender Information Value Date Recorded Sex Assigned at Male 05/27/2018 8:52 AM CDT Gender Identity Male 05/27/2018 8:52 AM CDT Sexual Orientation Straight 05/27/2018 8: 52 AM CDT documented as of this encounter Plan of Treatment Not on file documented as of this encounter Visit Diagnoses Diagnosis Transplant Renal (HCC)- Primary High Risk Medication Immunodeficiency Due To Drugs (HCC) documented in this encounter Additional Health Concerns Infection Onset Date Last Indicated Resolved Time Protective Environment 01/03/2023 01/03/2023 Assessment Noted Time PHQ-9 Depression Total Score: 0 07/17/20 17 1:08 PM CDT documented as of this encounter Care Teams Grades 7 8 Tutor Relationship Specialty Start Date End Date Elsewhere, Pcp PCP - General Internal Medicine 05/02/22 [facility] [address] [place], [place] [address] Laboratory Medicine 07/19/20 documented as of this encounter
--- OUTSIDE RECORDS SUMMARY | 2023-10-26 11:06 | XMS_ITS | Encounter Summary ---
Author Name Unknown Organization [facility] Address [address] [place] [address] Care Team Providers Care Neurology Professor Name Role Phone Elsewhere, Pcp Primary Care Provider Unavailabl e Reason for Referral * Outpatient (Routine) - Closed Specialty Diagnoses / Procedures Referred By Contac t Referred To Contact Diagnoses Osteoporosis Procedures BMD Bone Density Spine Hips Elio Churchill [address] [place] [address] [facility] Referral ID Status Reason Start Date Expiration Date Visits Re quested Visits Authorized [id number] Closed 08/30/2023 08/29/2024 1 1 LINER Reason for Visit * Outpatient (Routine) - Closed Specialty Diagnoses / Procedures Referred By Contac t Referred To Contact Diagnoses Osteoporosis Procedures BMD Bone Density Spine Hips Elio Churchill [address] [place] [address] [facility] Referral ID Status Reason Start Date Expiration Date Visits Re quested Visits Authorized [id number] Closed 08/30/2023 08/29/2024 1 1 Encounter Details Date Type Department Care Team (Latest Contact Info) Description 08/30/2023 11:14 AM SHIP LINER - 08/30/2023 11:59 PM SHIP LINER Hospital Encounter Department of Radiology, [facility], in [place], [place] [address] [place] [address] Elio Churchill [address] [place] [address] Osteoporosis Discharge Disposition: Home or Self Care Social [...] How often do you attend chur or sabianism services? Never 05/12/2021 Do you belong to any clubs o r organizations such as mosque groups, unions, fraternal or athletic [...] Answer Date Recorded PHQ-2 Score 0 02/27/2019 [facility] of Occupat ional Health - Occupational Stress [...] or slept in a [facility] (including now)? No 05/12/2021 Nutrition Answer Date [...] Master's degree (e.g., MA, MS, Young, MEd, HAT CHECKER, ERNIE) 05/08/2019 Sex and Gender Information Value [...] mycophenolate (CELLCEPT) 250 mg capsuleIndications:Tr ansplant Renal ([facility]) TAKE 2 CAPSULES BY MOUTH IN THE [...] tacrolimus (PROGRAF) 1 mg capsuleIndications:Tr ansplant Renal ([facility]) TAKE TWO CAPSULES BY MOUTH TWICE A DAY. 360 capsule 3 05/16/2023 documented as of this encounter Plan of Treatment Not on file documented as of this encounter Procedures Procedure Name Priority Date/Time Associated Diagnosis Comments BMD BONE DENSITY SPINE HIPS RAD - Routine (most inpatients and all outpatients) 08/30/2023 11:52 AM SHIP LINER Osteoporosis documented in this encounter Results * BMD Bone Density Spine Hips (08/30/2023 11:52 AM SHIP LINER) Anatomical Region Laterality Modality Hip, Lumbar Spine, Nuclear M edicine RST LOS, Musculoskeletal ARZ LOS, Muskuloskeletal FLA LOS N/A Radio graphic Imaging 08/30/2023 11:5 4 AM SHIP LINER Impressions 08/30/2023 11:56 AM SHIP LINER Osteoporosis DualFemur (region: Neck Left) Osteoporosis DualFemur (region: Neck Right) ?? Narrative 08/30/2023 11:56 AM SHIP LINER EXAM: ??BMD BONE DENSITY SPINE HIPS Bone Mineral Density (BMD) analysis performed on [employer] with serial number [id number]. COMPARISON: Serial Comparisons Left Total Hip results: [...] Bone Mineral Density (BMD) analysis performed on [employer] with serialnumber [id number]. COMPARISON: Serial Comparisons Left Total Hip results: [...] report, including images and graphs,is available in [email or web address]. In the absence of other causes of [...] (region: Neck Right) Elio LOPEZ DXA PROCEDURES documented in this encounter Visit Diagnoses Diagnosis Osteoporosis documented in this encounter Additional Health Concerns Infection Onset Date Last Indicated Resolved Time Protective Environment 01/03/2023 01/03/2023 Assessment Noted Time PHQ-9 Depression Total Score: 0 07/17/20 17 1:08 PM CDT documented as of this encounter Care Teams Neurology Professor Relationship Specialty Start Date End Date Elsewhere, Pcp PCP - General Internal Medicine 05/02/22 [facility] [address] [place], [place] [id number] Laboratory Medicine 07/19/20 documented as of this encounter
--- OUTSIDE RECORDS SUMMARY | 2023-10-26 11:06 | XMS_ITS | Encounter Summary ---
Author Name Unknown Organization [facility] Address [address] [place] [address] Care Team Providers Care Broker Agricultural Produce Name Role Phone Elsewhere, Pcp Primary Care Provider Unavailabl e Reason for Referral * Outpatient (Routine) - Authorized Specialty Diagnoses / Procedures Referred By Contac t Referred To Contact Diagnoses Osteoporosis Procedures BMD Bone Density Spine Hips Elio Churchill [address] [place] [address] [facility] Referral ID Status Reason Start Date Expiration Date V isits Requested Visits Authorized [id number] Authorized 08/30/2023 08/29/2024 1 1 CIATION EXECUTIVE * Outpatient (Routine) - Closed Specialty Diagnoses / Procedures Referred By Contac t Referred To Contact Diagnoses Osteoporosis Procedures BMD Bone Density Spine Hips Elio Churchill [address] [place] [address] [facility] Referral ID Status Reason Start Date Expiration Date Visits Re quested Visits Authorized [id number] Closed 08/30/2023 08/29/2024 1 1 CIATION EXECUTIVE Reason for Visit * Transplant (Routine) - Closed Specialty Diagnoses / Procedures Referred By Contmarah t Referred To Contact Transplant Diagnoses Hyperglycemia Josette Hannon M.D. [address] [place] [address] [facility] Referral ID Status Reason Start Date Expiration Date Visits Re quested Visits Authorized [id number] Closed 05/30/2023 05/29/2024 1 1 Encounter Details Date Type Department Care Team (Latest Contact Info) Description 08/30/2023 10:00 AM ASSOCIATION EXECUTIVE Comprehensive Visit [facility] [place], [place] [address] [place] [address] Josette Hannon M.D. [address] [place] [address] Elio Churchill [address] [place] [address] Osteoporosis (Primary Dx); Hyperglycemia; Hyperlipidemia Social History Tobacco Use Types Packs/Day Years [...] How often do you attend chur or confucianism services? Never 05/12/2021 Do you belong to any clubs o r organizations such as yarsanism groups, unions, fraternal or athletic [...] Answer Date Recorded PHQ-2 Score 0 02/27/2019 [facility] [place] of Occupat ional Health - Occupational Stress [...] Master's degree (e.g., MA, MS, Young, MEd, JEWELRY STORE MANAGER, ERNIE) 05/08/2019 Sex and Gender Information Value [...] Concentration - - Weight - - Height 187.7 cm (6' 1.9) 08/30/2023 9:55 AM ASSOCIATION EXECUTIVE Body Mass Index - - documented in this encounter Progress Notes * Elio Churchill M.D. - 08/30/2023 10:00 AM CST ENDOCRINOLOGY, METABOLISM, DIABETES AND NUTRITION [facility] Evaluation Note REFERRAL Josette Hannon M.D. DEMOGRAPHIC INFORMATION Patient Name: Tyler Morocho Age/ Sex: 57 y.o. male Date of : 1965 Address: [address] [place] [id number] Service Date/ Time: 08/30/2023 10:09 ASSOCIATION EXECUTIVE Cut Off Saw Operator Metal: Elio Churchill M.D. SUBJECTIVE CHIEF COMPLAINT/ PURPOSE OF VISIT Tyler Morocho is a 57 y.o. male who presents for endocrine evaluation as a part of evaluation after kidney transplant HISTORY OF PRESENT ILLNESS Mr. Morocho is a pleasant, 57 y.o. 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 Currently is on tacrolimus, mycophenolate mofetil, and prednisone (5 mg per day). Iothalamate clearance May 30, 2023 was 52 mL, stable. Urinary albumin excretion was 10 milligram/gram creatinine on June 19, 2023. I performed an eConsult on him on November 28, 2021. #1 Prediabetes/ Post-transplant diabetes He has had prediabetes at least since 2011 with fasting glucose more than 100 mg/dL. Hemoglobin A1cwas 6.4% on December 28, 2020 and 6.4% on May 30, 2023. Other hemoglobin A1cs have been lower. Her fasting plasma glucose on June 18, 2023 was 153 mg/dL. On May 30, 2023 it was 146 mg/dL. After the transplant he required insulin for a few days. Otherwise he is not taken any other medications for glucose control. About 2 years back with a 30 lb weight loss and his hemoglobin A1c had come down from 6.4 to 5.8%. He has eliminated carbs/rice/bread. I reviewed the [employer] Emeka download for 28 days between April 29 through May 26, 2023. During this time CGM was active 50% of the time. Average glucose at this time was 133 mg/dL that gives him a GMI of 6.5%, compatible with a hemoglobin A1c of 6.4%. 91% of the data was between 70 to 180; 8% between 181 to 250 and 1% above that. Over the 28 days between August 03 through August 30, 2023 sensor was active 91% of the time and the average glucose was 156 mg/dL giving him a GMI of 7% with 77% data between 70 to 180; 21% between 181 to 250; and 2% above that. #2 Dyslipidemia Which he has been on statins possibly since 2004. Currently taking atorvastatin 20 mg daily he is not having any muscle aches and pains. On May 30, 2023 his LDL cholesterol was 123 mg/dL with anHDL of 49 and triglyceride 103 mg/dL. #3 Osteoporosis Osteoporosis was diagnosed by DEXA scan in May 2011 showing T-score of - 3.1 in the left femoral neck, -2.9 in the right femur neck and -2.8 in lumbar spine. He was started on Fosamax 70 mg Q weekly since then from transplant team. This was discontinued after 5 years and restarted after 2 years of drug holiday, such that now he is taking it since May 2018. Twenty-five hydroxy vitamin-D on May 30, 2023 was more than optimal at 43 ng/mL. Serum calciumwas 10.3 mg/dL with a phosphorus of 2.7 mg/dL in magnesium of 1.8 mg/dL; albumin was 4.9 gram/deciliter. Parathyroid hormone was 58 picogram/mL down from 137 in April 2022 (after going up on calciumto 2 tablets per day). He reduced his calcium intake from 2 tablets per day to 1 tablet per day after hypercalcemia was noted in May 2023. No history of urolithiasis. Fractures: None. Not Lost height. Chest x-ray does not reveal any wedging of vertebrae. Secondary causes for osteoporosis were reviewed by Dr. Ty of endocrinology in 2018 and none were found. He was also evaluated by Dr. Deejay Cordoba on May 28, 2020. Bone density in MayApril 2022 shows a lowest T-score of-2.6 in left femoral neck. Hip density did not declined significantly between 2019 through 2021, but declined by 4% in spine, though during this time he has lost about 10 kg. Weight is stable over the last year. Other endocrine issues TSH, last checked on June 06, 2018 was normal at 4.1 micrograms/mL. TSH will be checked with the next blood draw. Current Outpatient Medications: alendronate (FOSAMAX) 70 mg tablet, TAKE 1 TABLET (70 MG TOTAL) BY MOUTH ONCE A WEEK., Disp: 12 tablet, Rfl: 3 atorvastatin (LIPITOR) 20 mg tablet, Take 1 tablet (20 mg total) by mouth daily., Disp: 90 tablet, Rfl: 3 blood-glucose sensor (FreeStyle Emeka 3 Sensor) device, 1 each as directed. Change every 14 days for continuous glucose monitoring., Disp: 9 each, Rfl: 3 calcium carbonate-vit D3-min 600 mg calcium- 400 unit tablet, Take 1 tablet by mouth daily. 6, Disp: , Rfl: flash glucose sensor (FreeStyle Emeka 14 Day Sensor) kit, PLACE 1 SENSOR DIRECTED AND CHANGE EVERY 14 DAYS, Disp: 1 kit, Rfl: 11 Lactobacillus acidophilus (PROBIOTIC ORAL), Take 1 tablet by mouth daily., Disp: , Rfl: mycophenolate (CELLCEPT) 250 mg capsule, TAKE 2 CAPSULES BY MOUTH IN THE MORNING AND 1 CAPSULE BY MOUTH IN THE PM TEVA BRAND, Disp: 270 capsule, Rfl: 3 omega-3 fatty acids-fish oil 300-1,000 mg per capsule, Take 1 capsule by mouth daily., Disp: , Rfl: predniSONE (DELTASONE) 5 mg tablet, TAKE 1 TABLET BY MOUTH ONCE DAILY., Disp: 90 tablet, Rfl: 3 tacrolimus (PROGRAF) 1 mg capsule, TAKE TWO CAPSULES BY MOUTH TWICE A DAY., Disp: 360 capsule, Rfl:3 Past Medical History: Diagnosis Date Hyperlipidemia Hypertension [...] the prostate under ultrasound guidance in the No family history on file. The following portions of the patient's history were reviewed and updated as appropriate: allergies. SYSTEMS REVIEW REVIEW OF SYSTEMS OBJECTIVE Ht 187.7 cm BMI 19.67 kg/m?? Constitutional General: He is not in acute distress. Appearance: Normal appearance. He is normal weight. He is not ill-appearing, toxic-appearing or diaphoretic. Eyes General: Right eye: No discharge. Left eye: No discharge. Cardiovascular Pulses: Dorsalis pedis pulses are 2+ on the right side and 2+ on the left side. Pulmonary Effort: Pulmonary effort is normal. No respiratory distress. Musculoskeletal Right foot: Normal range of motion. No deformity, bunion, Charcot foot, foot drop or prominent metatarsal heads. Left foot: Normal range of motion. No deformity, bunion, Charcot foot, foot drop or prominent metatarsal heads. Feet Right foot: Protective Sensation: 6 sites tested. 6 sites sensed. Skin integrity: Skin integrity normal. Toenail Condition: Right toenails are normal. Left foot: Protective Sensation: 6 sites tested. 6 sites sensed. Skin integrity: Skin integrity normal. Toenail Condition: Left toenails are normal. Neurological Mental Status: He is alert. Psychiatric Mood and Affect: Mood normal. Behavior: Behavior normal. Thought Content: Thought content normal. Judgment: Judgment normal. ASSESSMENT / PLAN #1 Hyperglycemia I recommend repeating fasting plasma glucose and hemoglobin A1c in another 2 months and every 3 months thereafter unless stable and is in goal. For glycemic control there is no clear indication of starting pharmacotherapy. However, if the transplant team feels SGLT 2 inhibitor as would be helpful we may want to try that to see if he can tolerate. Information about this class of medicine was sent to him through a portal message. #2 Dyslipidemia I recommend going up on atorvastatin from 20 to 40 mg. If he is unable to tolerate that he will go back to 20 mg and let me know. Lipids to be repeated with the next blood draw #3 Osteoporosis I recommend starting the drug holiday again. He will discontinue now and repeat bone density next year. If he had the bone density done this time we will be able to compare what happened without Fosamax. Though total serum calcium was high albumin was also 4.9 gram/deciliter, suggesting that corrected calcium was not that high. I will write to Dr. Hannon to see if we can go back to his 2 tablets per day, which would keep his PTH in normal range and therefore protect the bones. I spent a total of 60 minutes with the patient, counseling and coordination of care. DIAGNOSES: #1 Hyperglycemia #2 Immunosuppressed State #3 Hypertension #4 Transplant Renal (HCC) #5 Hyperlipidemia #6 Osteopenia #7 Osteoporosis #8 Bone Metabolic Disease #9 Hyperparathyroidism Renal Secondary (HCC) #10 Chronic Kidney Disease Stage 3 Glomerular Filtration Rate 30 To 59 DISCUSSION We discussed about the benefits of glucose control. 1. High glucose can threaten life and increase risks of infections and poor wound-healing Briefly, persistently high plasma glucose concentrations (usually above 350 mg/dL) can cause dehydration and threaten life. Blood glucose persistently above 180 mg/dL increases the risks of bacterialand fungal infection (like infection of private parts, foot, skin, etc.), and poor wound healing. 2. Glucose control can prevent long-term complications from diabetes In addition, elevated glucose concentrations can cause long-term complications over years to decades. Diabetes is the most common cause of blindness; it is the most common cause of kidney failure (need for dialysis or transplant); it increases the risk of gangrene of the foot and need for amputation; and, it increases the risk of heart attack, stroke, and premature to about twice as much asseen in people without diabetes. The complications from diabetes can be prevented to a great extent. Of course, people without diabetes also develop problems with vision, kidney, etc. Appropriate management of diabetes can bring down the risks of these problems back what is seen in people without diabetes. Appropriate management of diabetes includes management of blood glucose but also management of other factors that could contribute to the complications from diabetes. This includes discontinuation ofsmoking, controlling blood pressure, regular physical activity/exercise, healthy eating, and cholesterol-lowering medicine as required. 3. Glucose control now makes diabetes management easier for years to come. Diabetes is a progressive disease with ongoing loss of insulin producing capacity over time. Therefore, people with diabetes very often require progressively more medicines and more complex treatmentplan for glucose control over years to decades. This is so, because ongoing decline capacity of pancreas to make and release insulin. Good glucose control can preserve insulin producing capacity to some extent. Therefore, treatment for diabetes is simpler (and often less expensive) for years with good glucose control now. How fast should glucose levels be controlled? If glucose control is very poor with glucose usually more than 250 mg/dL the first target is to bring morning glucose to less than 180 mg/dL. The goal of glucose control in long-run would be different and lower. However, there are reasons to believe that slower control of glucose over months is better than controlling glucose to the final goal quickly over days. CIATION EXECUTIVE documented in this encounter Plan of Treatment Scheduled Orders Name Type Priority Associated Diagnoses Orde r Schedule BMD Bone Density Spine Hips Imaging RAD - Routine (most inpatients and all outpatients) Osteoporosis Expected: 08/30/2024 (Approximate), Expires: 11/28/2024 documented as of this encounter Results * BMD Bone Density Spine Hips (08/30/2023 11:52 AM ASSOCIATION EXECUTIVE) Anatomical Region Laterality Modality Hip, Lumbar Spine, Nuclear M edicine RST LOS, Musculoskeletal ARZ LOS, Muskuloskeletal FLA LOS N/A Radio graphic Imaging 08/30/2023 11:5 4 AM ASSOCIATION EXECUTIVE Impressions 08/30/2023 11:56 AM ASSOCIATION EXECUTIVE Osteoporosis DualFemur (region: Neck Left) Osteoporosis DualFemur (region: Neck Right) ?? Narrative 08/30/2023 11:56 AM ASSOCIATION EXECUTIVE EXAM: ??BMD BONE DENSITY SPINE HIPS Bone Mineral Density (BMD) analysis performed on [employer] with serial number [id number]. COMPARISON: Serial Comparisons Left Total Hip results: [...] Bone Mineral Density (BMD) analysis performed on [employer] with serialnumber [id number]. COMPARISON: Serial Comparisons Left Total Hip results: [...] report, including images and graphs,is available in [employer]. In the absence of other causes of [...] documented in this encounter Visit Diagnoses Diagnosis Osteoporosis- Primary Hyperglycemia Hyperlipidemia Osteoporosis documented in this encounter Additional Health Concerns Infection Onset Date Last Indicated Resolved Time Protective Environment 01/03/2023 01/03/2023 Assessment Noted Time PHQ-9 Depression Total Score: 0 07/17/20 17 1:08 PM CDT documented as of this encounter Care Teams Broker Agricultural Produce Relationship Specialty Start Date End Date Elsewhere, Pcp PCP - General Internal Medicine 05/02/22 [facility] [address] [place], [place] [address] Laboratory Medicine 07/19/20 documented as of this encounter
--- OUTSIDE RECORDS SUMMARY | 2023-10-26 11:06 | XMS_ITS | Encounter Summary ---
Author Name Unknown Organization [facility] Address [address] [place] [address] Care Team Providers Care Director Family Name Role Phone Elsewhere, Pcp Primary Care Provider Unavailabl e Reason for Visit * Reason Comments Med Refill Encounter Details Date Type Department Care Team (Late st Contact Info) Description 06/11/2023 Refill Division of Nephrology and Hypertension in [place], [place] [address] [place] [address] Josette Hannon M.D. [address] [place] [address] Med Refill Social History Tobacco Use Types [...] week 05/12/2021 How often do you attend [facility] or methodist services? Never 05/12/2021 Do you belong to any clubs o r organizations such as bahai groups, unions, fraternal or athletic [...] Answer Date Recorded PHQ-2 Score 0 02/27/2019 [facility] of Occupat ional Health - Occupational Stress [...] slept in a long term (including now)? No 05/12/2021 Nutrition Answer Date [...] Master's degree (e.g., MA, MS, Young, MEd, STREET CAR INSPECTOR, ERNIE) 05/08/2019 Sex and Gender Information Value [...] documented as of this encounter Care Teams Director Family Relationship Specialty Start Date End Date Elsewhere, Pcp PCP - General Internal Medicine 05/02/22 [facility] [address] [place], [place] [address] Laboratory Medicine 07/19/20 documented as of this encounter
--- OUTSIDE RECORDS SUMMARY | 2023-10-26 11:06 | XMS_ITS | Encounter Summary ---
Author Name Unknown Organization [facility] Address [address] [place] [address] Care Team Providers Care Bloom Conveyor Operator Name Role Phone Elsewhere, Pcp Primary Care Provider Unavailabl e Reason for Visit * Reason Comments Med Refill Encounter Details Date Type Department Care Team (Late st Contact Info) Description 06/19/2023 Refill Joey Ferrer [facility] in [place], [place] [address] [place] [phone] Nasra Montalvo APRN, C.N.P., D.N.P. [address] [place] [phone] Med Refill Social History Tobacco Use Types [...] week 05/12/2021 How often do you attend [facility] or anabaptism services? Never 05/12/2021 Do you belong to any clubs o r organizations such as moravian groups, unions, fraternal or athletic [...] Answer Date Recorded PHQ-2 Score 0 02/27/2019 [facility] of Occupat ional Health - Occupational Stress [...] or slept in a alf (including now)? No 05/12/2021 Nutrition Answer Date [...] Master's degree (e.g., MA, MS, Young, MEd, EXPERIMENTAL PHYSICIST, ERNIE) 05/08/2019 Sex and Gender Information Value [...] documented as of this encounter Care Teams Bloom Conveyor Operator Relationship Specialty Start Date End Date Elsewhere, Pcp PCP - General Internal Medicine 05/02/22 [facility] [address] [place], [place] [address] Laboratory Medicine 07/19/20 documented as of this encounter
--- OUTSIDE RECORDS SUMMARY | 2023-10-26 11:06 | XMS_ITS | Encounter Summary ---
Author Name Unknown Organization [facility] Address [address] [place] [address] Care Team Providers Care Scrap Cutter Name Role Phone Elsewhere, Pcp Primary Care Provider Unavailabl e Encounter Details Date Type Department Care Team (Latest Contact Info) Description 05/31/2023 1:25 PM CDT - 05/31/2023 11:59 PM CDT Hospital Encounter Department of Laboratory Medicine and Pathology, [facility] in [place], [place] [address] [place] [address] BryceHoward M.D. [address] [place] [address] Transplant Renal (HCC) Discharge Disposition: Home or [...] week 05/12/2021 How often do you attend [facility] or muslim services? Never 05/12/2021 Do you [...] Answer Date Recorded PHQ-2 Score 0 02/27/2019 [facility] of Occupat ional Health - Occupational [...] Master's degree (e.g., MA, MS, Young, MEd, CHASER APPRENTICE, ERNIE) 05/08/2019 Sex and Gender Information Value [...] Associated Diagnosis Comments TACROLIMUS LEVEL, B Routine 06/19/2023 7 :40 AM CDT Transplant Renal (HCC) documented in this encounter Results * Tacrolimus, B (06/19/2023 7:40 AM CDT) Tacrolimus, Trough 6.4 5.0-15.0 (Trough) ng/mL 06/20/2023 10:47 AM CDT [facility] Comment: ----ADDITIONAL INFORMATION---- Target steady-state trough concentrations vary depending on the type of transplant, concomitant immunosuppression, clinical/institutional protocols, and time post-transplant. Results should be interpreted in conjunction with this clinical information and any physical signs/symptoms of rejection/toxicity. Testing performed by Liquid Chromatography-Tandem Mass Spectrometry (LC-MS/MS). This test was developed and its performance characteristics determined by [facility] in a manner consistent with CLIA requirements. This test has not been cleared or approved by the U.S. Food and Drug Administration. Blood (Blood, Venous) 06/19/2023 7:40 AM CDT 06/20/2023 7:34 AM CDT Narrative Resulting Agency Comment Mailed In Specimen Howard G Bryce M.D. LAB BLOOD NON ADD-ON [facility] [address] [place] [address] [facility] [address] [place] [address] [place] [id number] documented in this encounter Visit Diagnoses Diagnosis Transplant Renal (HCC) documented in this encounter Additional Health Concerns Infection Onset Date Last Indicated Resolved Time Protective Environment 01/03/2023 01/03/2023 Assessment Noted Time PHQ-9 Depression Total Score: 0 07/17/20 17 1:08 PM CDT documented as of this encounter Care Teams Scrap Cutter Relationship Specialty Start Date End Date Elsewhere, Pcp PCP - General Internal Medicine 05/02/22 [facility] [address] [place], [place] [address] Laboratory Medicine 07/19/20 documented as of this encounter
--- OUTSIDE RECORDS SUMMARY | 2023-10-26 11:06 | XMS_ITS | Encounter Summary ---
Author Name Unknown Organization [facility] Address [address] [place] [address] Care Team Providers Care Grinder Mill Operator Name Role Phone Elsewhere, Pcp Primary Care Provider Unavailabl e Encounter Details Date Type Department Care Team (Late st Contact Info) Description 05/30/2023 Orders Only Joey christina [facility] for Transplantation and Clinical Regeneration in [place], [place] [address] [place] [phone] BryceHoward M.D. [address] [place] [phone] Transplant Renal (HCC) Social History Tobacco Use Types Packs/Day [...] How often do you attend chur or church services? Never 05/12/2021 Do you belong to any clubs o r organizations such as jehovah's witness groups, unions, fraternal or [...] Answer Date Recorded PHQ-2 Score 0 02/27/2019 [facility] - [...] or slept in a longterm (including now)? No 05/12/2021 Nutrition Answer Date [...] Master's degree (e.g., MA, MS, Young, MEd, MECHANICAL ORDNANCE ASSEMBLER, ERNIE) 05/08/2019 Sex and Gender Information Value Date Recorded Sex Assigned at Male 05/27/2018 8:52 AM CDT Gender Identity Male 05/27/2018 8:52 AM CDT Sexual Orientation Straight 05/27/2018 8: 52 AM CDT documented as of this encounter Plan of Treatment Not on file documented as of this encounter Results * Tacrolimus, B (06/19/2023 7:40 AM CDT) Tacrolimus, Trough 6.4 5.0-15.0 (Trough) ng/mL 06/20/2023 10:47 AM CDT [facility] Comment: ----ADDITIONAL INFORMATION---- Target steady-state trough concentrations vary depending on the type of transplant, concomitant immunosuppression, clinical/institutional protocols, and time post-transplant. Results should be interpreted in conjunction with this clinical information and any physical signs/symptoms of rejection/toxicity. Testing performed by Liquid Chromatography-Tandem Mass Spectrometry (LC-MS/MS). This test was developed and its performance characteristics determined by [facility] in a manner consistent with CLIA requirements. This test has not been cleared or approved by the U.S. Food and Drug Administration. Blood (Blood, Venous) 06/19/2023 7:40 AM CDT 06/20/2023 7:34 AM CDT Narrative Resulting Agency Comment Mailed In Specimen Howard Wu M.D. LAB BLOOD NON ADD-ON [facility] [address] [place] [address] [facility] [address] [place] [address] [place] [address] documented in this encounter Visit Diagnoses Diagnosis Transplant Renal (HCC) documented in this encounter Additional Health Concerns Infection Onset Date Last Indicated Resolved Time Protective Environment 01/03/2023 01/03/2023 Assessment Noted Time PHQ-9 Depression Total Score: 0 07/17/20 17 1:08 PM CDT documented as of this encounter Care Teams Grinder Mill Operator Relationship Specialty Start Date End Date Elsewhere, Pcp PCP - General Internal Medicine 05/02/22 [facility] [address] [place], [place] [address] Laboratory Medicine 07/19/20 documented as of this encounter
--- OUTSIDE RECORDS SUMMARY | 2023-10-26 11:06 | XMS_ITS | Encounter Summary ---
Author Name Unknown Organization [facility] Address [address] [place] [address] Care Team Providers Care Quality Assurance Inspector Name Role Phone Elsewhere, Pcp Primary Care Provider Unavailabl e Encounter Details Date Type Department Care Team (Late st Contact Info) Description 09/03/2023 Orders Only Joey christina [facility] for Transplantation and Clinical Regeneration in [place], [place] [address] [place] [phone] BryceHoward M.D. [address] [place] [phone] Transplant Renal (HCC) Social History Tobacco Use [...] How often do you attend chur or faith services? Never 05/12/2021 Do you belong to any clubs o r organizations such as congregation groups, unions, fraternal or athletic [...] Date Recorded PHQ-2 Score 0 02/27/2019 [facility] - Occupational [...] or slept in a assisted (including now)? No 05/12/2021 Nutrition Answer Date [...] Master's degree (e.g., MA, MS, Young, MEd, TACKER ELASTIC BAND, ERNIE) 05/08/2019 Sex and Gender Information Value Date Recorded Sex Assigned at Male 05/27/2018 8:52 AM CDT Gender Identity Male 05/27/2018 8:52 AM CDT Sexual Orientation Straight 05/27/2018 8: 52 AM CDT documented as of this encounter Plan of Treatment Not on file documented as of this encounter Results * Tacrolimus, B (10/09/2023 7:45 AM YIELD IMPROVEMENT ENGINEER) Tacrolimus, Trough 12.5 5.0-15.0 (Trough) ng/mL 10/10/2023 10:03 AM YIELD IMPROVEMENT ENGINEER [facility] Comment: ----ADDITIONAL INFORMATION---- Target steady-state trough concentrations vary depending on the type of transplant, concomitant immunosuppression, clinical/institutional protocols, and time post-transplant. Results should be interpreted in conjunction with this clinical information and any physical signs/symptoms of rejection/toxicity. Testing performed by Liquid Chromatography-Tandem Mass Spectrometry (LC-MS/MS). This test was developed and its performance characteristics determined by [facility] in a manner consistent with CLIA requirements. This test has not been cleared or approved by the U.S. Food and Drug Administration. Blood (Blood, Venous) 10/09/2023 7:45 AM YIELD IMPROVEMENT ENGINEER 10/10/2023 7:07 AM YIELD IMPROVEMENT ENGINEER Howard Wu M.D. LAB BLOOD NON ADD-ON [facility] [address] [place] [address] [facility] [address] [place] [address] [place] [address] documented in this encounter Visit Diagnoses Diagnosis Transplant Renal (HCC) documented in this encounter Additional Health Concerns Infection Onset Date Last Indicated Resolved Time Protective Environment 01/03/2023 01/03/2023 Assessment Noted Time PHQ-9 Depression Total Score: 0 07/17/20 17 1:08 PM CDT documented as of this encounter Care Teams Quality Assurance Inspector Relationship Specialty Start Date End Date Elsewhere, Pcp PCP - General Internal Medicine 05/02/22 [facility] [address] [place], [place] [address] Laboratory Medicine 07/19/20 documented as of this encounter
--- OUTSIDE RECORDS SUMMARY | 2023-10-26 11:07 | XMS_ITS | Encounter Summary ---
Author Name Unknown Organization [facility] Address [address] [place] [address] Care Team Providers Care Marketing And Communications Officer Name Role Phone Elsewhere, Pcp Primary Care Provider Unavailabl e Encounter Details Date Type Department Care Team (Late st Contact Info) Description 03/01/2023 Orders Only Joey christina [facility] for Transplantation and Clinical Regeneration in [place], [place] [address] [place] [phone] BryceHoawrd M.D. [address] [place] [phone] Transplant Renal (HCC) Social History Tobacco Use [...] any clubs o r organizations such as denominational groups, unions, fraternal or athletic [...] Date Recorded PHQ-2 Score 0 02/27/2019 [facility] - Occupational [...] Master's degree (e.g., MA, MS, Young, MEd, VOCATIONAL PSYCHOLOGIST, ERNIE) 05/08/2019 Sex and Gender Information Value Date Recorded Sex Assigned at Male 05/27/2018 8:52 AM CDT Gender Identity Male 05/27/2018 8:52 AM CDT Sexual Orientation Straight 05/27/2018 8: 52 AM CDT documented as of this encounter Plan of Treatment Not on file documented as of this encounter Results * Tacrolimus, B (03/21/2023 7:45 AM CDT) Tacrolimus, Trough 6.7 5.0-15.0 (Trough) ng/mL 03/22/2023 10:32 AM CDT [facility] Comment: ----ADDITIONAL INFORMATION---- Target steady-state trough concentrations vary depending on the type of transplant, concomitant immunosuppression, clinical/institutional protocols, and time post-transplant. Results should be interpreted in conjunction with this clinical information and any physical signs/symptoms of rejection/toxicity. Testing performed by Liquid Chromatography-Tandem Mass Spectrometry (LC-MS/MS). This test was developed and its performance characteristics determined by [facility] in a manner consistent with CLIA requirements. This test has not been cleared or approved by the U.S. Food and Drug Administration. Blood (Blood, Venous) 03/21/2023 7:45 AM CDT 03/22/2023 7:18 AM CDT Howard Wu M.D. LAB BLOOD NON ADD-ON [facility] [address] [place] [address] [facility] [address] [place] [address] [place] [id number] documented in this encounter Visit Diagnoses Diagnosis Transplant Renal (HCC) documented in this encounter Additional Health Concerns Infection Onset Date Last Indicated Resolved Time Protective Environment 01/03/2023 01/03/2023 Assessment Noted Time PHQ-9 Depression Total Score: 0 07/17/20 17 1:08 PM CDT documented as of this encounter Care Teams Marketing And Communications Officer Relationship Specialty Start Date End Date Elsewhere, Pcp PCP - General Internal Medicine 05/02/22 [facility] [address] [place], [place] [address] Laboratory Medicine 07/19/20 documented as of this encounter
--- OUTSIDE RECORDS SUMMARY | 2023-10-26 11:07 | XMS_ITS | Encounter Summary ---
Author Name Unknown Organization [facility] Address [address] [place] [address] Care Team Providers Care Steward Dishwasher Name Role Phone Elsewhere, Pcp Primary Care Provider Unavailabl e Encounter Details Date Type Department Care Team (Latest Contact Info) Description 04/19/2023 7:02 AM CDT - 04/19/2023 11:59 PM CDT Hospital Encounter Department of Laboratory Medicine and Pathology, [facility] in [place], [place] [address] [place] [phone] Josette Hannon M.D. [address] [place] [phone] Transplant Renal (HCC) Discharge Disposition: Home or [...] often do you attend chur ch or episcopal services? Never 05/12/2021 Do you belong to any clubs o r organizations such as zoroastrian groups, unions, fraternal or athletic [...] Answer Date Recorded PHQ-2 Score 0 02/27/2019 [facility] - [...] medical appointments or from getting medications? No 08/1 05/2021 In the past 12 months, has l [...] slept in a skilled nursing (including now)? No 05/12/2021 Nutrition Answer Date [...] Master's degree (e.g., MA, MS, Young, MEd, ELECTRONICS ENGINEERING TECHNICIAN, ERNIE) 05/08/2019 Sex and Gender Information Value Date Recorded Sex Assigned at Male 05/27/2018 8:52 AM CDT Gender Identity Male 05/27/2018 8:52 AM CDT Sexual Orientation Straight 05/27/2018 8: 52 AM CDT documented as of this encounter Medications at Time of Discharge Medication Sig Dispensed Refills Start Date End Date calcium carbonate-vit D3-min 600 mg calcium- 400 unit tablet Take 1 tablet by mouth daily. 6 0 06/30/2015 Lactobacillus acidophilus (PROBIOTIC ORAL) Take 1 tablet by mouth daily. 0 omega-3 fatty acids-fish oil 300-1,000 mg per capsule Take 1 capsule by mouth daily. 0 05/23/2016 alendronate (FOSAMAX) 70 mg tablet TAKE 1 TABLET (70 MG TOTAL) BY MOUTH ONCE A WEEK. 12 tablet 3 07/06/2022 05/17/[address] tablet Take 81 mg by mouth daily. 0 06/30/2015 05/30/2023 atorvastatin (LIPITOR) 20 mg tablet Take 1 tablet (20 mg total) by mouth daily. 90 tablet 3 05/31/2018 08/30/2023 denosumab (PROLIA) 60 mg/mL syringe Inject 1 mL (60 mg total) under the skin every 6 (six) months. 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 Apply to damp skin, lather, leave on 5 minutes, and rinse. May use more often during flares 120 mL 3 05/13/2021 05/30/2023 multivitamin tablet Take 1 tablet by mouth daily. 0 03/23/2014 05/30/2023 mycophenolate (CELLCEPT) 250 mg capsuleIndications:Tr ansplant Renal (HCC) TAKE 2 CAPSULES BY MOUTH IN THE MORNING AND 1 CAPSULE BY MOUTH IN THE PM TEVA BRAND 270 capsule 2 12/12/2022 06/20/2023 predniSONE (DELTASONE) 5 mg tabletIndications:Tra nsplant Renal (HCC) TAKE 1 TABLET BY MOUTH ONCE DAILY. 90 tablet 3 09/21/2022 06/20/2023 tacrolimus (PROGRAF) 1 mg capsuleIndications:Tr ansplant Renal (HCC) TAKE TWO CAPSULES BY MOUTH TWICE A DAY. 360 capsule 3 07/03/2022 05/16/2023 documented as of this encounter Plan of Treatment Not on file documented as of this encounter Procedures Procedure Name Priority Date/Time Associated Diagnosis Comments PROTEIN, TOTAL, 24 HR, U Routine 05/16/2023 7:00 AM CDT Transplant Renal (HCC) ALBUMIN, 24 HR, U Routine 05/16/2023 7:0 0 AM CDT Transplant Renal (HCC) documented in this encounter Results * Albumin, 24 hour Collection, Urine (05/16/2023 7:00 AM CDT) Albumin, 24 Hr, U <18 <30 mg/24 h 05/18/2023 12:11 PM CDT [facility] Comment: ----ADDITIONAL INFORMATION---- This test has been modified from the iron melter's instructions. Its performance characteristics were determined by [facility] in a manner consistent with CLIA requirements. This test has not been cleared or approved by the U.S. Food and Drug Administration. Collection Duration 24 h 05/18 9:20 AM CDT DTL Urine Volume 3600 mL 05/18/2023 9:20 AM CDT DTL Albumin Excretion Rate <12 <20 mcg/min 05/18/2023 12:11 PM CDT DTL Urine (Urine, 24 Hours) 05/16/2023 7:00 AM CDT 05/18/2023 10:33 AM CDT Josette Hannon M.D. LAB URINE ORDERABL ES Performing Organization Address City/[facility] Co de Phone Number [facility] [address] [place] [address], [facility] [address] [address] * Protein, Total, 24 hour, Urine (05/16/2023 7:00 AM CDT) Total Protein, 24 HR, U <144 <229 mg/24 h 05/18/2023 10:27 AM CDT DTL Collection Duration 24 h 05/18/2023 9:20 AM CDT DTL Urine Volume 3600 mL 05/18/2023 9:20 AM CDT DTL Urine (Urine, 24 Hours) 05/16/2023 7:00 AM CDT 05/18/2023 9:20 AM CDT Josette Hannon M.D. LAB URINE ORDERABL ES Performing Organization Address City/[facility]/ZIP Co de Phone Number [facility] [address] [place] [address], [facility] [address] [address] documented in this encounter Visit Diagnoses Diagnosis Transplant Renal (HCC) documented in this encounter Additional Health Concerns Infection Onset Date Last Indicated Resolved Time Protective Environment 01/03/2023 01/03/2023 Assessment Noted Time PHQ-9 Depression Total Score: 0 07/17/20 17 1:08 PM CDT documented as of this encounter Care Teams Steward Dishwasher Relationship Specialty Start Date End Date Elsewhere, Pcp PCP - General Internal Medicine 05/02/22 [facility] [address] [place], [place] [address] Laboratory Medicine 07/19/20 documented as of this encounter
--- OUTSIDE RECORDS SUMMARY | 2023-10-26 11:07 | XMS_ITS | Encounter Summary ---
Author Name Unknown Organization [facility] Address [address] [place] [address] Care Team Providers Care Collection Systems Technician Name Role Phone Elsewhere, Pcp Primary Care Provider Unavailabl e Reason for Referral * Transplant (Routine) - Closed Specialty Diagnoses / Procedures Referred By Samantha limon Referred To Contact Transplant Diagnoses Josette Aggawral M.D. 200 [place] [address] [facility] Referral ID Status Reason Start Date Expiration Date Visits Re quested Visits Authorized [id number] Closed 05/30/2023 05/29/20[address] Churchill only Reason for Visit * Reason Comments Kidney Follow-up 12 year annual * Outpatient (Routine) - Closed Specialty Diagnoses / Procedures Referred By Samantha limon Referred To Contact Transplant Diagnoses Unspecified kidney failure Procedures post [facility] Referral ID Status Reason Start Date Expiration Date Visits Re quested Visits Authorized [id number] Closed 03/13/2023 03/12/2024 1 1 Encounter Details Date Type Department Care Team (Latest Contact Info) Description 05/30/2023 2:00 PM CDT Office Visit [facility] Transplantation and Clinical Regeneration in [place], [place] 200 [place] [address] Josette Hannon M.D. 200 [place] [address] Hyperglycemia (Primary Dx) Social History Tobacco Use Types [...] 05/12/2021 How often do you attend chur [employer] or sabianist services? Never 05/12/2021 Do you belong to any clubs o r organizations such as mu-ism groups, unions, fraternal or athletic [...] Answer Date Recorded PHQ-2 Score 0 02/27/2019 [facility] of Occupat ional Health - Occupational Stress [...] Master's degree (e.g., MA, MS, Young, MEd, DIRECTOR OF PHYSICAL EDUCATION, ERNIE) 05/08/2019 Sex and Gender Information Value [...] 05/30/2023 1:36 PM CD T Respiratory Rate - - Oxygen Saturation - - Inhaled Oxygen Concentration - - Weight 69.3 kg (152 lb 12.5 oz) 05/30/2023 1:36 PM CDT Height - - Body Mass Index 20.25 05/30/2023 9:00 AM CDT documented in this encounter Progress Notes * Josette Hannon M.D. - 05/30/2023 2:00 PM CDT KIDNEY TRANSPLANT FOLLOW UP VISIT REASON FOR VISIT: Tyler Morocho is a 57 y.o. male who presents for kidney transplant follow-up and immunosuppression management follow up. 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 He has been doing quite well. Creatinine remained stable, although in our institution is running higher, at 1.7 mg/dL, comparing to his home labs. He is physically active, and exercise on regular basis, although has been exercising less recently. We have been following blood glucose closely. He hasa history of hyperglycemia, and prediabetes, that initially improved after dietary modification. However, more recently his blood sugars are running higher, with most recent hemoglobin A1c 6.4%. He does have Emeka CGM/ For immunosuppression, he is on tacrolimus, CellCept 500 mg twice a day, and prednisone at 5 mg daily. His most recent tacrolimus level is around 9. Otherwise, he has had uneventful year. 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 REVIEW OF SYSTEMS: A comprehensive review of [...] MOUTH ONCE A WEEK. 12 tablet 3 atorvastatin (LIPITOR) 20 mg tablet Take 1 tablet (20 mg total) by mouth daily. 90 tablet 3 calcium carbonate-vit D3-min 600 mg calcium- 400 unit tablet Take 1 tablet by mouth daily. 6 FreeStyle Emeka [address] SENSOR DIRECTED AND CHANGE EVERY 14 DAYS 1 kit 3 Lactobacillus acidophilus (PROBIOTIC ORAL) Take [...] 3 tacrolimus (PROGRAF) 1 mg capsule TAKE TWO CAPSULES BY MOUTH TWICE A DAY. 360 capsule 3 [DISCONTINUED] aspirin [address] tablet Take 81 mg by mouth daily. [DISCONTINUED] denosumab (PROLIA) 60 mg/mL syringe Inject 1 mL (60 mg total) under the skin every 6(six) months. (Patient not taking: Reported on 05/16/2021) 1 mL 1 [DISCONTINUED] ketoconazole (NIZORAL) 2 % shampoo Apply 1 application topically 3 (three) times a week. Apply to damp skin, lather, leave on 5 minutes, and rinse. May use more often during flares (Patient not taking: Reported on 05/02/2022) 120 mL 3 [DISCONTINUED] multivitamin tablet Take 1 tablet by mouth daily. No current facility-administered medications on file prior to visit. PHYSICAL EXAM: BP 103/69 Pulse 98 Temp 36.9 ??C Wt 69.3 kg BMI 20.25 kg/m?? , GENERAL APPEARANCE: alert and no acute distress SKIN: no acute rash LYMPHATICS: no cervical adenopathy LUNGS: clear to auscultation bilaterally CARDIOVASCULAR: regular rhythm, normal rate, no murmurs; no LE edema bilaterally ABDOMEN: soft, nondistended EXTREMITIES: extremities normal - no gross deformities noted NEURO: grossly nonfocal ASSESSMENT / PLAN #1 Status post preemptive living-unrelated donor kidney transplant, April 2011 Last kidney biopsy was done in 2016. Creatinine is overall stable, however higher today. This is inthe context of higher tacrolimus level. We will repeat lab work in 2 weeks. I think we can lower his tacrolimus, especially that it can contribute to hyperglycemia. A new goalwill be between 5-7. #2 End-stage kidney disease secondary to IgA nephropathy #3 Immunosuppression #4 Osteoporosis Patient is currently on Fosamax. He had a drug holiday, but subsequently restarted. He is due for bone density next year. His PTH is within normal range #5 Secondary hyperparathyroidism PTH normalized #6 History of gout, asymptomatic #7 Hyperglycemia I will ask Endocrinology to evaluate, whether any medical therapy is indicated at this point. PLAN: 1. Repeat tacrolimus and BMP in about 2 weeks; the plan is to set new tac goal of 5-7 2. Endocrinology consult . 3. Bone mineral density next year documented in this encounter Plan of Treatment Scheduled Referrals Name Type Priority Associated Diagnoses Order Schedule Transplant - Endocrinology consult (clinic) Outpatient Referral Routine Hyperglycemia Expected: 05/30/2023 (Approximate), Expires: 08/29/2024 documented as of this encounter Visit Diagnoses Diagnosis Hyperglycemia- Primary documented in this encounter Additional Health Concerns Infection Onset Date Last Indicated Resolved Time Protective Environment 01/03/2023 01/03/2023 Assessment Noted Time PHQ-9 Depression Total Score: 0 07/17/20 17 1:08 PM CDT documented as of this encounter Care Teams Collection Systems Technician Relationship Specialty Start Date End Date Elsewhere, Pcp PCP - General Internal Medicine 05/02/22 [facility] [address], [place] [address] Laboratory Medicine 07/19/20 documented as of this encounter
--- OUTSIDE RECORDS SUMMARY | 2023-10-26 11:07 | XMS_ITS | Encounter Summary ---
Author Name Unknown Organization [facility] Address [address] [place] [address] Care Team Providers Care Dress Fitter Name Role Phone Elsewhere, Pcp Primary Care Provider Unavailabl e Reason for Referral * Outpatient (Routine) - Closed Specialty Diagnoses / Procedures Referred By Contac t Referred To Contact Diagnoses Transplant Renal (HCC) Procedures DX Chest AP or PA and Lateral 2 Views Josette Hannon M.D. [address] [place] [address] [facility] Referral ID Status Reason Start Date Expiration Date Visits Re quested Visits Authorized [id number] Closed 03/14/2023 03/13/2024 1 1 * Outpatient (Routine) - Closed Specialty Diagnoses / Procedures Referred By Samantha limon Referred To Contact Diagnoses Transplant Renal (HCC) Procedures ECG 12 Lead Josette Hannon M.D. 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 [address] [place] [address] [facility] Referral ID Status Reason Start Date Expiration Date Visits Re quested Visits Authorized [id number] Closed 03/14/2023 03/13/2024 1 1 Reason for Visit * Reason Onset Date Comments Annual Exam 03/13/2023 Encounter Details Date Type Department Care Team (Latest Contact Info) Description 03/13/2023 Clinical Communication [facility] in [place], [place] [address] [place] [address] Josette Hannon M.D. [address] [place] [address] Annual Exam Social History Tobacco Use Types Packs/Day Years [...] often do you attend chur ch or tenriism services? Never 05/12/2021 Do you belong to any clubs o r organizations such as rastafarian groups, unions, fraternal or athletic [...] Answer Date Recorded PHQ-2 Score 0 02/27/2019 [facility] of Occupat ional Health - Occupational Stress [...] Master's degree (e.g., MA, MS, Young, MEd, ASSISTANT, ERNIE) 05/08/2019 Sex and Gender Information Value Date Recorded Sex Assigned at Male 05/27/2018 8:52 AM CDT Gender Identity Male 05/27/2018 8:52 AM CDT Sexual Orientation Straight 05/27/2018 8: 52 AM CDT documented as of this encounter Plan of Treatment Scheduled Orders Name Type Priority Associated Diagnoses Orde r Schedule 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 Chestotherwise negative. Josette Hannon M.D. IMG DIAGNOSTIC MALA GING PROCEDURES * Pancreas/Kidney Storage, Urine (05/30/2023 9:15 AM CDT) Jarvis/Kid Storage, U Collected DEFAULT 05/30/2023 9:15 AM CDT HSS Urine (Urine, Midstream) 05/30/2023 9:15 AM CDT 05/30/2023 9:15 AM CDT Josette Hannon M.D. LAB URINE ORDERABL ES Performing Organization Address [facility] Co de Phone Number [facility] [address] [place] [address], [facility] [address] [place] [address] * ECG 12 Lead (05/30/2023 8:03 AM CDT) Ventricular Rate ECG/Min 65 BPM MUSE CO Interval 144 ms MUSE QRSD Interval 102 ms MUSE QT Interval 390 ms MUSE QTC Interval 405 ms MUSE P S[place] 33 degrees MUSE R [place] 72 degrees MUSE T Wave [place] 49 degrees MUSE 05/30/2023 8:03 AM CDT 05/30/2023 8:21 AM CDT Impressions MUSE - 05/30/2023 8:21 AM CDT Normal sinus rhythm Nonspecific ST abnormality When compared with ECG of 02-MAY-2022 09:03, ST abnormality is now present Reviewed by CHAVO [place] Narrative Procedure Note Jackson Anderson M.D. - 05/30/2023 IMPRESSION: Normal sinus rhythm Nonspecific ST abnormality When compared with ECG of 02-MAY-2022 09:03, ST abnormality is now present Reviewed by CHAVO [place] Josette Hannon M.D. ECG ORDERABLES MUSE NA * (ABNORMAL) BKV DNA Detect/Quant (05/30/2023 7:48 AM CDT) Pathologist [facility] BKV DNA Detect/Quant, P <22(A) Undetected IU/mL 05/30/2023 3:39 PM CDT [facility] Comment: Result in log IU/mL is <1.34. BKV DNA is detected, but level present is <22 IU/mL (<1.34 log IU/mL). This assay cannot accurately quantify BKV DNA below this level. ----ADDITIONAL INFORMATION---- The quantification range of this assay is 22 to 100,000,000 IU/mL (1.34 log to 8.00 log IU/mL). Testing was performed using the tosin BKV test ([employer] with the tosin 6800 System. Blood (Blood, Venous) 05/30/2023 7:48 AM CDT 05/30/2023 10:06 AM CDT Josette Hannon M.D. LAB MICROBIOLOGY - BLOOD ORDERABLES Performing Organization Address City/[facility]/ZIP Co de Phone Number [facility] [place] [address] [place] [address] [facility] [address] [place] [address] [place] [address] * Parathyroid Hormone (PTH) (05/30/2023 7:48 AM CDT) Pathologist [facility] Parathyroid Hormone (PTH), S 58 15 - 65 pg/mL 05/30/2023 8:47 AM CDT DT Blood (Blood, Venous) 05/30/2023 7:48 AM CDT 05/30/2023 8:10 AM CDT Josette Hannon M.D. LAB BLOOD ADD-ON [facility] [address] [place] [address], [place] [facility] [address] [place] [address] * 25-Hydroxyvitamin D2 and D3 (05/30/2023 7:48 AM CDT) Pathologist [facility] 25-Hydroxy D2 <4.0 ng/mL 05/31/2023 4:21 PM CDT [facility] 25-Hydroxy D3 43 ng/mL 05/31/2023 4:21 PM CDT [facility] 25-Hydroxy D Total 43 ng/mL 2022 4:21 PM CDT [facility] Comment: ----REFERENCE VALUE---- 25-HYDROXY D TOTAL (D2+D3) Optimum levels in the healthy population are 20-50, patients with bone disease may benefit from higher levels within this range. ----ADDITIONAL INFORMATION---- This test was developed and its performance characteristics determined by [facility] in a manner consistent with CLIA requirements. This test has not been cleared or approved by the U.S. Food and Drug Administration. Blood (Blood, Venous) 05/30/2023 7:48 AM CDT 05/30/2023 9:56 AM CDT Josette Hannon M.D. LAB BLOOD ADD-ON [facility] [place] [address] [place] [address] [facility] [address] [place] [address] [place] [address] * CMV DNA Detect / Quant, Plasma (05/30/2023 7:48 AM CDT) Pathologist [facility] CMV DNA Detect/Quant, P Undetected Undetected IU/mL 05/30/2023 6:51 PM CDT [facility] Comment: Result in log IU/mL is Undetected. ----ADDITIONAL INFORMATION---- The quantification range of this assay is 35 to 10,000,000 IU/mL (1.54 log to 7.00 log IU/mL). Testing was performed using the tosin CMV test ([employer] with the tosin [id number] System. Blood (Blood, Venous) 05/30/2023 7:48 AM CDT 05/30/2023 10:27 AM CDT Josette Hannon M.D. LAB MICROBIOLOGY - BLOOD ORDERABLES [facility] [address] [place] [address] [facility] [address] [place] [address] [place] [address] * HLA Class II SAB Antibody Screen (05/30/2023 7:48 AM CDT) Class II SAB Overall Result Negative Not Applicable 05/31/2023 10:29 AM CDT DBB8 Class II SAB Comment No DSA obsvd. 05/31/2023 10:29 AM CDT DBB8 Class II SAB >=5000 MFI NONE 05/31/2023 10:29 AM CDT DBB8 Class II SAB [id number] MFI NONE 05/31/2023 10:29 AM CDT DBB8 Class II SAB 500-1999 MFI NONE 05/31/2023 10:29 AM CDT DBB8 SAB DRB1 Specificity NONE 05/31/2023 10:29 AM CDT DBB8 SAB [id number] Specificity NONE 05/31/2023 10:29 AM CDT DBB8 SAB DQB1 Specificity NONE 05/31/2023 10:29 AM CDT DBB8 SAB DPB1 Specificity NONE 05/31/2023 10:29 AM CDT DBB8 Comment: ----ADDITIONAL INFORMATION---- Method: Luminex Flow Cytometry CLIA: [id number] ??CLIA Trade Marker: DON STRATTON MD,PhD Blood (Blood, Venous) 05/30/2023 7:48 AM CDT 05/30/2023 9:11 AM CDT Josette Hannon M.D. LAB HLA ORDERABLES [facility] [address] [place] [address], [facility] DBB8 [facility] [address] [place] [address] * HLA Class I SAB Antibody Screen (05/30/2023 7:48 AM CDT) Class I SAB Overall Result Positive Not Applicable 05/31/2023 10:01 AM CDT DBB8 Class I SAB Comment No DSA obsvd. 05/31/2023 10:01 AM CDT DBB8 Class I SAB >=5000 MFI NONE 05/31/2023 10:01 AM CDT DBB8 Class I SAB [id number] MFI NONE 05/31/2023 10:01 AM CDT DBB8 Class I SAB 500-1999 MFI see below 05/31/2023 10:01 AM CDT DBB8 Comment:B:8 SAB A Specificity NONE 05/31/2023 10:01 AM CDT DBB8 SAB B Specificity see below 05/31/2023 10:01 AM CDT DBB8 Comment: 8(08:01)[624] Format: Serologic Eq.(B Mol. Allele)[Normalized MFI] NOTE: ??Data is displayed in descending order by Mean Fluorescence Intensity (MFI). ??Serologic equivalents can be displayed multiple times for different molecular alleles. SAB C Specificity NONE 05/31/2023 10:01 AM CDT DBB8 Comment: ----ADDITIONAL INFORMATION---- Method: Luminex Flow Cytometry CLIA: [id number] ??CLIA Trade Marker: DON STRATTON MD,PhD Blood (Blood, Venous) 05/30/2023 7:48 AM CDT 05/30/2023 9:11 AM CDT Josette Hannon M.D. LAB HLA ORDERABLES [facility] [address] [place], [place] [id number] [place] [address] DBB8 [facility] [address] [place] [address] * Jarvis/Kid 5cc Storage, Blood (05/30/2023 7:48 AM CDT) Storage, Red Collected DEFAULT 05/30/2023 7:48 AM CDT HSS Storage, ACD Collected DEFAULT 05/30/2023 7:48 AM CDT HSS Blood (Blood, Venous) 05/30/2023 7:48 AM CDT 05/30/2023 7:48 AM CDT Narrative [facility] - 05/30/2023 7:48 AM CDT Specimen Information: Specimen ID: [id number] Specimen Type: Blood Specimen Collection Start Date: 05/30/2023 ??7:48 AM Specimen Received Date: 05/30/2023 ??7:48 AM Specimen ID: [id number] Specimen Collection Start Date: 05/30/2023 ??7:48 AM Specimen Received Date: 05/30/2023 ??7:48 AM Josette Hannon M.D. LAB BLOOD ADD-ON [facility] [address] [address] * (ABNORMAL) Hemoglobin A1c (05/30/2023 7:48 AM CDT) Hemoglobin A1c, B 6.4(H) 4.0 - 5.6 % 05/30/2023 9:01 AM CDT DTL Comment: Hemoglobin A1c values of 5.7-6.4 percent indicate an increased risk for developing diabetes mellitus. In diabetic patients, HbA1c goals should be discussed with healthcare provider. Blood (Blood, Venous) 05/30/2023 7:48 AM CDT 05/30/2023 7:56 AM CDT Josette Hannon M.D. LAB BLOOD ADD-ON [facility] [address] [place], [place] [phone] [place] [address] [place] [address] * Troponin T, 5th Generation (05/30/2023 7:48 AM CDT) Troponin T, 5th gen 15 <=15 ng/L 05/30/2023 8:38 AM CDT DTL Blood (Blood, Venous) 05/30/2023 7:48 AM CDT 05/30/2023 8:10 AM CDT Josette Hannon M.D. LAB BLOOD ADD-ON [facility] [address] [place] [address], [facility] [address] [place] [address] * Lipid Panel (05/30/2023 7:48 AM CDT) Triglycerides 103 mg/dL 05/30/2023 8:47 AM CDT DTL Comment: ----REFERENCE VALUE---- Normal: <150 mg/dL Borderline High: 150-199 mg/dL High: 200-499 mg/dL Very High: > or =500 mg/dL Cholesterol, Total 191 mg/dL 2022 8:47 AM CDT DTL Comment: ----REFERENCE VALUE---- Desirable: < 200 mg/dL Borderline High: 200 - 239 mg/dL High: > or = 240 mg/dL Cholesterol, LDL, Calculated 123 mg/dL 05/30/2023 8:47 AM CDT DTL Comment: ----REFERENCE VALUE---- Desirable: <100 mg/dL Above Desirable: 100-129 mg/dL Borderline High: 130-159 mg/dL High: 160-189 mg/dL Very High: >=190 mg/dL ----ADDITIONAL INFORMATION---- LDL cholesterol calculated using the Siddiqui/NIH equation. Cholesterol, HDL, S 49 >=40 mg/dL 05/30/2023 8:47 AM CDT DTL Cholesterol, Non-HDL, Calculated 142 mg/dL 05/30/2023 8:47 AM CDT DTL Comment: ----REFERENCE VALUE---- Desirable: <130 mg/dL Above Desirable: 130-159 mg/dL Borderline High: 160-189 mg/dL High: 190-219 mg/dL Very High: > or =220 mg/dL Fasting (8 HR or more) Yes 05/30/2023 8:10 AM CDT DTL Blood (Blood, Venous) 05/30/2023 7:48 AM CDT 05/30/2023 8:10 AM CDT Josette Hannon M.D. LAB BLOOD ADD-ON [facility] [address] [place] [address] * Magnesium (05/30/2023 7:48 AM CDT) Pathologist [facility] Magnesium, S 1.8 1.7 - 2.3 mg/dL 05/30/2023 8:47 AM CDT DT Blood (Blood, Venous) 05/30/2023 7:48 AM CDT 05/30/2023 8:10 AM CDT Josette Hannon M.D. LAB BLOOD ADD-ON Performing Organization Address City/[facility] Co de Phone Number [facility] [address] [place], [place] [phone] [place] [address] [address] [place] [address] * Phosphorus Inorganic (05/30/2023 7:48 AM CDT) Pathologist [facility] Phosphorus (Inorganic), S 2.7 2.5 - 4.5 mg/dL 05/30/2023 8:47 AM CDT DT Blood (Blood, Venous) 05/30/2023 7:48 AM CDT 05/30/2023 8:10 AM CDT Josette Hannon M.D. LAB BLOOD ADD-ON Performing Organization Address City/[facility]/ZIP Co de Phone Number [facility] [address] [place] [address] * (ABNORMAL) Comprehensive Metabolic Panel (05/30/2023 7:48 AM CDT) Potassium, S 5.1 3.6 - 5.2 mmol/L 05/30/2023 8:47 AM CDT DTL Sodium, S 141 135 - 145 mmol/L 05/30/2023 8:47 AM CDT DTL Chloride, S 105 98 - 107 mmol/L 05/30/2023 8:47 AM CDT DTL Bicarbonate, S 25 22 - 29 mmol/L 05/30/2023 8:47 AM CDT DTL Anion Gap 11 7 - 15 05/30/2023 8:47 AM CDT DTL BUN (Blood Urea Nitrogen), S 24 8 - 24 mg/dL 05/30/2023 8:47 AM CDT DTL Creatinine 1.76(H) 0.74 - 1.35 mg/dL 05/30/2023 8:47 AM CDT DTL Estimated GFR (eGFR) 45(L) >=60 mL/min/BS A 05/30/2023 8:47 AM CDT DTL Comment: Estimated GFR calculated using the 2020 CKD_EPI creatinine equation. Calcium, Total, S 10.3(H) 8.6 - 10.0 mg/dL 05/30/2023 8:47 AM CDT DTL Glucose, S 146(H) 70 - 140 mg/dL 05/30/2023 8:47 AM CDT DTL Protein, Total, S 6.9 6.3 - 7.9 g/dL 05/30/2023 8:47 AM CDT DTL Albumin, S 4.9 3.5 - 5.0 g/dL 05/30/2023 8:47 AM CDT DTL Aspartate Aminotransferase (AST), S 20 8 - 48 U/L 05/30/2023 8:47 AM CDT DTL Alkaline Phosphatase, S 31(L) 40 - 129 U/L 05/30/2023 8:47 AM CDT DTL Alanine Aminotransferase (ALT), S 17 7 - 55 U/L 05/30/2023 8:47 AM CDT DTL Bilirubin, Total, S 0.7 <=1.2 mg/dL 05/30/2023 8:47 AM CDT DTL Blood (Blood, Venous) 05/30/2023 7:48 AM CDT 05/30/2023 8:10 AM CDT Josette Hannon M.D. LAB BLOOD ADD-ON [facility] [address] [place] [address] * APTT (Activated Partial Thromboplastin Time) (05/30/2023 7:48 AM CDT) Activated Partial Thrombopl Time, P 26 25 - 37 sec 05/30/2023 8:18 AM CDT DTL Blood (Blood, Venous) 05/30/2023 7:48 AM CDT 05/30/2023 7:56 AM CDT Josette Hannon M.D. LAB BLOOD ADD-ON Performing Organization Address [facility] Co de Phone Number [facility] [address] [place] [address] * Prothrombin Time (PT) (05/30/2023 7:48 AM CDT) Prothrombin Time, P 11.6 9.4 - 12.5 sec 05/30/2023 8:18 AM CDT DTL INR 1.1 0.9 - 1.1 05/30/2023 8:18 AM CDT DTL Comment: ----ADDITIONAL INFORMATION---- Standard intensity warfarin therapeutic range: 2.0 to 3.0 ?? High intensity warfarin therapeutic range: 2.5 to 3.5 Blood (Blood, Venous) 05/30/2023 7:48 AM CDT 05/30/2023 7:56 AM CDT Josette Hannon M.D. LAB BLOOD ADD-ON Performing Organization Address City/[facility]/ZIP Co de Phone Number [facility] [address] DTL [facility] [address] [place] [address] * (ABNORMAL) CBC with Differential, Blood (05/30/2023 7:48 AM CDT) Hemoglobin 14.9 13.2 - 16.6 g/dL 05/30/2023 8:28 AM CDT DTL Hematocrit 43.9 38.3 - 48.6 % 05/30/2023 8:28 AM CDT DTL Erythrocytes 4.62 4.35 - 5.65 x10(12)/L 05/30/2023 8:28 AM CDT DTL MCV 95.0 78.2 - 97.9 fL 05/30/2023 8:28 AM CDT DTL RBC Distrib Width 12.2 11.8 - 14.5 % 05/30/2023 8:28 AM CDT DTL Platelet Count 176 135 - 317 x10(9)/L 05/30/2023 8:28 AM CDT DTL Leukocytes 3.7 3.4 - 9.6 x10(9)/L 05/30/2023 8:28 AM CDT DTL Neutrophils 2.47 1.56 - 6.45 x10(9)/L 05/30/2023 8:28 AM CDT DHPM Lymphocytes 0.87(L) 0.95 - 3.07 x10(9)/L 05/30/2023 8:28 AM CDT DTL Monocytes 0.33 0.26 - 0.81 x10(9)/L 05/30/2023 8:28 AM CDT DTL Eosinophils 0.05 0.03 - 0.48 x10(9)/L 05/30/2023 8:28 AM CDT DTL Basophils <0.03 0.01 - 0.08 x10(9)/L 05/30/2023 8:28 AM CDT DTL Blood (Blood, Venous) 05/30/2023 7:48 AM CDT 05/30/2023 7:56 AM CDT Josette Hannon M.D. LAB BLOOD ADD-ON [facility] 200 [place] [address], [facility] 200 [place] [address] [address] * Bacterial Culture, Aerobic + Susceptibility, Urine (05/30/2023 7:41 AM CDT) Urine Culture No growth after 1 day of incubation. 06/01/2023 7:58 AM CDT DTL Urine (Urine, Midstream) 05/30/2023 7:41 AM CDT 05/30/2023 8:59 PM CDT Comment:Specimen Source Site : Urine Josette Hannon M.D. LAB MICROBIOLOGY - GENERAL ORDERABLES [facility] [address] [place], [place] [address] 200 [place] [address] * Urinalysis with Microscopic: Urine, Midstream (05/30/2023 7:41 AM CDT) Source Urine, Urine, Midstream 05/30/2023 12:14 PM CDT DTL Color, U Yellow 05/30/2023 12:14 PM CDT DTL Clarity, U Clear 05/30/2023 12:14 PM CDT DTL Protein, U 5 <26 mg/dL 05/30/2023 1:21 PM CDT DTL Protein/Osmol ality 0.17 <0.42 ratio 05/30/2023 1:21 PM CDT DTL Predicted 24 HR Protein, U 169 <229 mg/24 h 05/30/2023 1:21 PM CDT DTL Predicted Range 54-533 mg/24 h 05/30/2023 1:21 PM CDT DTL Urine (Urine, Midstream) 05/30/2023 7:41 AM CDT 05/30/2023 12:14 PM CDT Josette Hannon M.D. LAB URINE ORDERABL ES Performing Organization Address [facility] Co de Phone Number [facility] [address] [place] [address], [address] [address] * Albumin, 24 hour Collection, Urine (05/16/2023 7:00 AM CDT) Albumin, 24 Hr, U <18 <30 mg/24 h 05/18/2023 12:11 PM CDT DTL Comment: ----ADDITIONAL INFORMATION---- This test has been modified from the impregnation operator's instructions. Its performance characteristics were determined by [facility] in a manner consistent with [...] LAB URINE ORDERABL ES Performing Organization Address [facility] Co de Phone Number [facility] 200 [place] [address], [facility] 200 [place] [address] * Protein, Total, 24 hour, Urine (05/16/2023 7:00 AM CDT) Total Protein, 24 HR, U <144 <229 mg/24 h 05/18/2023 10:27 AM CDT DTL Collection Duration 24 h 05/18/2023 9:20 AM CDT DTL Urine Volume 3600 mL 05/18/2023 9:20 AM CDT DTL Urine (Urine, 24 Hours) 05/16/2023 7:00 AM CDT 05/18/2023 9:20 AM CDT Josette Hannon M.D. 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 [place], [place] [address] Laboratory Medicine 07/19/20 documented as of this encounter
--- OUTSIDE RECORDS SUMMARY | 2023-10-26 11:07 | XMS_ITS | Encounter Summary ---
Author Name Unknown Organization [facility] Address [address] [place] [address] Care Team Providers Care Rn Infusion Name Role Phone Elsewhere, Pcp Primary Care Provider Unavailabl e Reason for Visit * Reason Comments Med Refill Encounter Details Date Type Department Care Team (Late st Contact Info) Description 05/15/2023 Refill Division of Endocrinology in [place], [place] [address] [place] [phone] Deejay Cordoba [address] [place] [phone] Med Refill Social History Tobacco Use Types [...] often do you attend chur ch or lutheran services? Never 05/12/2021 Do you belong to [...] Answer Date Recorded PHQ-2 Score 0 02/27/2019 [facility] - Occupational Stress Questionnaire Answer Date Recorded [...] Master's degree (e.g., MA, MS, Young, MEd, BELLMAKER, ERNIE) 05/08/2019 Sex and Gender Information Value [...] documented as of this encounter Care Teams Rn Infusion Relationship Specialty Start Date End Date Elsewhere, Pcp PCP - General Internal Medicine 05/02/[address] [facility] [address], [place] [address] Laboratory Medicine 07/19/20 documented as of this encounter
--- OUTSIDE RECORDS SUMMARY | 2023-10-26 11:07 | XMS_ITS | Encounter Summary ---
Author Name Unknown Organization [facility] Address [address] [place] [address] Care Team Providers Care Network Architect Manager Name Role Phone Elsewhere, Pcp Primary Care Provider Unavailabl e Reason for Visit * Reason Comments Med Refill Encounter Details Date Type Department Care Team (Late st Contact Info) Description 12/12[facility]2022 [facility] [place], [place] [address] [place] [phone] Josette Hannon M.D. [address] [place] [phone] Med Refill Social History Tobacco Use Types [...] you attend [facility] or christian services? Never 05/12/2021 Do you belong to any clubs o r organizations such as synagogue groups, unions, fraternal or athletic [...] Answer Date Recorded PHQ-2 Score 0 02/27/2019 [facility]at ional [facility] - [...] or slept in a half-way (including now)? No 05/12/2021 Nutrition Answer Date [...] Master's degree (e.g., MA, MS, Young, MEd, CASE CHECKER, ERNIE) 05/08/2019 Sex and Gender Information [...] documented in this encounter Additional Health Concerns Assessment Noted Time PHQ-9 Depression Total Score: 0 07/17/20 17 1:08 PM CDT documented as of this encounter Care Teams Network Architect Manager Relationship Specialty Start Date End Date Elsewhere, Pcp PCP - General Internal Medicine 05/02/[address] [facility] [address] [place], [place] [address] Laboratory Medicine 07/19/20 documented as of this encounter
--- OUTSIDE RECORDS SUMMARY | 2023-10-26 11:07 | XMS_ITS | Encounter Summary ---
Author Name Unknown Organization [facility] Address [address] [place] [address] Care Team Providers Care Calculator Operator Name Role Phone Elsewhere, Pcp Primary Care Provider Unavailabl e Encounter Details Date Type Department Care Team (Late st Contact Info) Description 03/21/2023 Orders Only Joey christina [facility] for Transplantation and Clinical Regeneration in [place], [place] [address] [place] [phone] External, Ordering ProviderJoel Social History Tobacco Use [...] often do you attend chur ch or temple services? Never 05/12/2021 Do you belong to any clubs o r organizations such as rastafari groups, unions, fraternal or athletic [...] Answer Date Recorded PHQ-2 Score 0 02/27/2019 [facility] of Occupat ional Health - Occupational Stress [...] Master's degree (e.g., MA, MS, Young, MEd, MOTION PICTURE FILM EXAMINER, ERNIE) 05/08/2019 Sex and Gender Information Value Date Recorded Sex Assigned at Male 05/27/2018 8:52 AM CDT Gender Identity Male 05/27/2018 8:52 AM CDT Sexual Orientation Straight 05/27/2018 8: 52 AM CDT documented as of this encounter Plan of Treatment Not on file documented as of this encounter Procedures Procedure Name Priority Date/Time Associated Diagnosis Comments EXTM POTASSIUM, S/P Routine 03/21/2023 7 :45 AM CDT EXTM PHOSPHORUS (INORGANIC), S Routine 03/21/2023 7:45 AM CDT EXTM MAGNESIUM, S Routine 03/21/2023 7:4 5 AM CDT EXTM GLUCOSE, RANDOM, S/P Routine 03/21/2023 7:45 AM CDT EXTM CREATININE WITH EGFR, S/P Routine 03/21/2023 7:45 AM CDT EXTP LIPID PANEL, BLOOD Routine 03/21/2023 7:45 AM CDT EXTP COMPLETE BLOOD COUNT, BLOOD Routine 03/21/2023 7:45 AM CDT documented in this encounter Results * (ABNORMAL) EXT Lipid Panel, Blood (03/21/2023 7:45 AM CDT) EXT Triglycerides, S 106 40 - 149 mg/dL [facility] EXT Cholesterol, Total, S 173 90 - 199 mg/dL [facility] EXT Calculated LDL 106(H) <100 mg/dL [facility] EXT Cholesterol, HDL, S 46 >=40 mg/dL [facility] 03/21/2023 7:45 AM CDT [facility] - 03/26/2023 5:37 PM CDT Source result document attached to Order Number [id number] ([id number]) dated 03/21/2023. External results verified in Extract by Brenda Quintana on 03/26/2023 at 05:33 PM. Ordering Provider External Joel LAB YOLANDA Chung NON ADD-ON Performing Organization Address City/[facility]/ZIP Co de Phone Number [facility] [address] [place] [address], [facility] [phone] * EXT Magnesium (03/21/2023 7:45 AM CDT) Pathologist [facility] EXT Magnesium 1.8 1.5 - 2.6 mg/dL [facility] 03/21/2023 7:45 AM CDT [facility] - 03/26/2023 5:37 PM CDT Source result document attached to Order Number [id number] ([id number]) dated 03/21/2023. External results verified in Extract by Brenda Quintana on 03/26/2023 at 05:33 PM. Ordering Provider External Joel LAB BLOO D ADD-ON Performing Organization Address City/[facility]/ZIP Co de Phone Number [facility] [address] [place] [address] * EXT Phosphorus Inorganic (03/21/2023 7:45 AM CDT) EXT Phosphorus (Inorganic), S 2.6 2.5 - 4.5 mg/dL [facility] 03/21/2023 7:45 AM CDT [facility] - 03/26/2023 5:37 PM CDT Source result document attached to Order Number [id number] ([id number]) dated 03/21/2023. External results verified in Extract by Brenda Quintana on 03/26/2023 at 05:33 PM. Ordering Provider External Joel LAB BLOO D ADD-ON Performing Organization Address City/[facility]/ZIP Co de Phone Number [facility] [address] [place] [address] * (ABNORMAL) EXT Glucose, Random (03/21/2023 7:45 AM CDT) EXT Glucose 147(H) 60 - 115 mg/dL [facility] 03/21/2023 7:45 AM CDT [facility] - 03/26/2023 5:37 PM CDT Source result document attached to Order Number [id number] ([id number]) dated 03/21/2023. External results verified in Extract by Brenda Quintana on 03/26/2023 at 05:33 PM. Ordering Provider External Joel LAB BLOO D TROPONIN [facility] [address] [place] [address] * EXT Creatinine with Estimated GFR (03/21/2023 7:45 AM CDT) EXT Creatinine 1.4 0.5 - 1.5 mg/dL [facility] EXT eGFR-Non Black/ 59 ml/min [facility] 03/21/2023 7:45 AM CDT [facility] - 03/26/2023 5:37 PM CDT Source result document attached to Order Number [id number] ([id number]) dated 03/21/2023. External results verified in Extract by Brenda Quintana on 03/26/2023 at 05:33 PM. Ordering Provider External Joel LAB BLOO D ADD-ON Performing Organization Address City/[facility]/ZIP Co de Phone Number [facility] [address] [phone] * EXT Potassium (03/21/2023 7:45 AM CDT) [facility] EXT Potassium 4.5 3.6 - 5.1 mmol/L [facility] 03/21/2023 7:45 AM CDT Narrative [facility] - 03/26/2023 5:37 PM CDT Source result document attached to Order Number [id number] ([id number]) dated 03/21/2023. External results verified in Extract by Brenda Quintana on 03/26/2023 at 05:33 PM. Ordering Provider External Joel LAB BLOO D ADD-ON Performing Organization Address [facility] Co de Phone Number [facility] [address] [phone] * (ABNORMAL) EXT Complete Blood Count, Blood (03/21/2023 7:45 AM CDT) EXT Leukocytes 3.75(L) 4.50 - 11.00 K/uL [facility] EXT Hemoglobin 13.6 13.5 - 17.5 gm/dL [facility] EXT Hematocrit 40.1 37.0 - 53.0 % [facility] EXT RDW 12.8 11.5 - 15.5 % [facility] EXT Neutrophils 2.40 1.7 - 7.0 K/uL [facility] EXT Lymphocytes 1.00 0.90 - 2.90 K/uL [facility] EXT Monocytes 0.30 0.00 - 0.90 K/UL [facility] EXT Basophils 0.00 0.00 - 0.30 K/uL [facility] EXT RBC 4.22(L) 4.30 - 5.90 m/uL [facility] EXT Platelet Count 168 140 - 440 K/uL [facility] EXT MCV 95 80 - 100 fl [facility] 03/21/2023 7:45 AM CDT Narrative [facility] - 03/26/2023 5:37 PM CDT External results verified in Extract by Brenda Quintana on 03/26/2023 at 05:33 PM. Ordering Provider External MTereso LAB BLOO D NON ADD-ON [facility] [address] [place], [place] [address] [phone] documented in this encounter Visit Diagnoses Not on filedocumented in this encounter Additional Health Concerns Infection Onset Date Last Indicated Resolved Time Protective Environment 01/03/2023 01/03/2023 Assessment Noted Time PHQ-9 Depression Total Score: 0 07/17/20 17 1:08 PM CDT documented as of this encounter Care Teams Calculator Operator Relationship Specialty Start Date End Date Elsewhere, Pcp PCP - General Internal Medicine 05/02/22 [facility] [address] [address] Laboratory Medicine 07/19/20 documented as of this encounter
--- OUTSIDE RECORDS SUMMARY | 2023-10-26 11:07 | XMS_ITS | Encounter Summary ---
Author Name Unknown Organization [facility] Address [address] [place] [id number] Care Team Providers Care Trainer Name Role Phone Elsewhere, Pcp Primary Care Provider Unavailabl e Reason for Visit * Reason Comments Med Refill Encounter Details Date Type Department Care Team (Late st Contact Info) Description 05/15/2023 Refill Joey Ferrer [facility] for Transplantation and Clinical Regeneration in [place], [place] [address] [place] [phone] Ruddy Craig M.D. [address] [place] [phone] Med Refill Social History Tobacco Use Types [...] How often do you attend chur or yarsani services? Never 05/12/2021 Do you belong to any clubs o r organizations such as jew groups, unions, fraternal or athletic groups, or [...] Recorded PHQ-2 Score 0 02/27/2019 [facility] of Occupat ional Health - Occupational Stress [...] Master's degree (e.g., MA, MS, Young, MEd, PLASTIC MACHINE OPERATOR, ERNIE) 05/08/2019 Sex and Gender Information Value [...] documented as of this encounter Care Teams Trainer Relationship Specialty Start Date End Date Elsewhere, Pcp PCP - General Internal Medicine 05/02/22 [facility] [address] [place], [place] [address] Laboratory Medicine 07/19/20 documented as of this encounter
--- OUTSIDE RECORDS SUMMARY | 2023-10-26 11:07 | XMS_ITS | Encounter Summary ---
Author Name Unknown Organization [facility] Address [address] [place] [address] Care Team Providers Care Video Software Engineer Name Role Phone Elsewhere, Pcp Primary Care Provider Unavailabl e Encounter Details Date Type Department Care Team (Late st Contact Info) Description 01/01/2023 Orders Only Joey christina [facility] for Transplantation and Clinical Regeneration in [place], [place] [address] [place] [phone] External, Ordering ProviderJoel Social History Tobacco Use [...] Answer Date Recorded PHQ-2 Score 0 02/27/2019 [facility] of Occupat ional Health - Occupational Stress [...] Master's degree (e.g., MA, MS, Young, MEd, EYEGLASS LENS GENERATOR, ERNIE) 05/08/2019 Sex and Gender Information Value Date Recorded Sex Assigned at Male 05/27/2018 8:52 AM CDT Gender Identity Male 05/27/2018 8:52 AM CDT Sexual Orientation Straight 05/27/2018 8: 52 AM CDT documented as of this encounter Plan of Treatment Not on file documented as of this encounter Procedures Procedure Name Priority Date/Time Associated Diagnosis Comments EXTM ALBUMIN, RANDOM, U Routine 01/01/2023 7:40 AM CDT EXTM POTASSIUM, S/P Routine 01/01/2023 7 :40 AM CDT EXTM PHOSPHORUS (INORGANIC), S Routine 01/01/2023 7:40 AM CDT EXTM MAGNESIUM, S Routine 01/01/2023 7:4 0 AM CDT EXTM GLUCOSE, RANDOM, S/P Routine 01/01/2023 7:40 AM CDT EXTM CREATININE WITH EGFR, S/P Routine 01/01/2023 7:40 AM CDT EXTP COMPLETE BLOOD COUNT, BLOOD Routine 01/01/2023 7:40 AM CDT documented in this encounter Results * EXT Albumin, Random, Urine (01/01/2023 7:40 AM CDT) [facility] EXT Creatinine, Urine 57.7 mg/dL [facility] EXT Microalbumin-R andom, U <1 mg/dL [facility] EXT Albumin/Creati nine Ratio 10 0 - 30 MG/G [facility] 01/01/2023 7:40 AM CDT [facility] - 01/02/2023 12:34 PM CDT Source result document attached to Order Number [id number] ([id number]) dated 01/01/2023. External results verified in Extract by Patricia Allen on 01/02/2023 at 12:33 PM. Ordering Provider External Joel LAB URIN E ORDERABLES Performing Organization Address [facility]/ZIP Co de Phone Number [facility] [address] [place] [address] * EXT Magnesium (01/01/2023 7:40 AM CDT) [facility] EXT Magnesium 1.7 1.5 - 2.6 mg/dL [facility] 01/01/2023 7:40 AM CDT [facility] - 01/02/2023 12:34 PM CDT Source result document attached to Order Number [id number] ([id number]) dated 01/01/2023. External results verified in Extract by Patricia Allen on 01/02/2023 at 12:27 PM. Ordering Provider External Joel LAB BLOO D ADD-ON Performing Organization Address [facility]/ZIP Co de Phone Number [facility] [address] [place] [address] * EXT Phosphorus Inorganic (01/01/2023 7:40 AM CDT) [facility] EXT Phosphorus (Inorganic), S 3.7 2.5 - 4.5 mg/dL [facility] 01/01/2023 7:40 AM CDT [facility] - 01/02/2023 12:34 PM CDT Source result document attached to Order Number [id number] ([id number]) dated 01/01/2023. External results verified in Extract by Patricia Allen on 01/02/2023 at 12:27 PM. Ordering Provider External Joel LAB BLOO D ADD-ON Performing Organization Address [facility]/ZIP Co de Phone Number [facility] [address] [place] [address] * EXT Glucose, Random (01/01/2023 7:40 AM CDT) EXT Glucose 115 60 - 115 mg/dl [facility] 01/01/2023 7:40 AM CDT [facility] - 01/02/2023 12:34 PM CDT Source result document attached to Order Number [id number] ([id number]) dated 01/01/2023. External results verified in Extract by Patricia Allen on 01/02/2023 at 12:27 PM. Ordering Provider External Joel LAB BLOO D TROPONIN Performing Organization Address [facility]/ZIP Co de Phone Number [facility] [address] [place] [address] * EXT Creatinine with Estimated GFR (01/01/2023 7:40 AM CDT) EXT Creatinine 1.5 0.5 - 1.5 mg/dL [facility] EXT Estimated GFR (eGFR) 54 ml/min [facility] 01/01/2023 7:40 AM CDT [facility] - 01/02/2023 12:34 PM CDT Source result document attached to Order Number [id number] ([id number]) dated 01/01/2023. External results verified in Extract by Patricia Allen on 01/02/2023 at 12:27 PM. Ordering Provider External Joel LAB BLOO D ADD-ON Performing Organization Address City/[facility]/ZIP Co de Phone Number [facility] [address] [place] [address], [facility] [phone] * EXT Potassium (01/01/2023 7:40 AM CDT) [facility] EXT Potassium 4.8 3.6 - 5.1 mmol/L [facility] 01/01/2023 7:40 AM CDT Narrative [facility] - 01/02/2023 12:34 PM CDT Source result document attached to Order Number [id number] ([id number]) dated 01/01/2023. External results verified in Extract by Patricia Allen on 01/02/2023 at 12:27 PM. Ordering Provider External Joel LAB BLOO D ADD-ON Performing Organization Address [facility]/ZIP Co de Phone Number [facility] [address] [place] [address], [facility] [phone] * (ABNORMAL) EXT Complete Blood Count, Blood (01/01/2023 7:40 AM CDT) Pathologist [facility] EXT Leukocytes 3.64(L) 4.50 - 11.00 K/uL [facility] EXT RBC 4.33 4.30 - 5.90 m/uL [facility] EXT Hemoglobin 14.1 13.5 - 17.5 gm/dL [facility] EXT Hematocrit 40.8 37.0 - 53.0 % [facility] EXT Platelet Count 162 140 - 440 K/uL [facility] EXT Neutrophils 2.40 1.7 - 7.0 K/uL [facility] EXT Monocytes 0.40 0.00 - 0.90 K/UL [facility] EXT Eosinophils 0.00 0.00 - 0.90 K/UL [facility] EXT Basophils 0.00 0.00 - 0.30 K/uL [facility] EXT MCV 94 80 - 100 fL [facility] EXT RDW 12.2 11.5 - 15.5 % [facility] EXT Lymphocytes 0.80(L) 0.90 - 2.90 K/uL [facility] 01/01/2023 7:40 AM CDT Narrative [facility] - 01/02/2023 12:34 PM CDT External results verified in Extract by Patricia Allen on 01/02/2023 at 12:27 PM. Ordering Provider External Joel LAB BLOO D NON ADD-ON [facility] [address] [place] [address], [facility] [phone] documented in this encounter Visit Diagnoses Not on filedocumented in this encounter Additional Health Concerns Assessment Noted Time PHQ-9 Depression Total Score: 0 07/17/20 17 1:08 PM CDT documented as of this encounter Care Teams Video Software Engineer Relationship Specialty Start Date End Date Elsewhere, Pcp PCP - General Internal Medicine 05/02/22 [facility] [address] [address] Laboratory Medicine 07/19/20 documented as of this encounter
--- OUTSIDE RECORDS SUMMARY | 2023-10-26 11:07 | XMS_ITS | Encounter Summary ---
Author Name Unknown Organization [facility] Address [address] [place] [address] Care Team Providers Care Still Operator Helper Name Role Phone Elsewhere, Pcp Primary Care Provider Unavailabl e Encounter Details Date Type Department Care Team (Late st Contact Info) Description 05/11/2023 Documentation Joey christina [facility] for Transplantation and Clinical Regeneration in [place], [place] [address] [place] [phone] Petty Ma Social History Tobacco Use Types Packs/Day Years [...] often do you attend chur ch or uatsdin services? Never 05/12/2021 Do you belong to any clubs o r organizations such as sikhism groups, unions, fraternal or athletic [...] Date Recorded PHQ-2 Score 0 02/27/2019 [facility] of Occupat ional Health - Occupational [...] a [place] [facility] [place] (including now)? No 05/12/2021 Nutrition Answer Date [...] Master's degree (e.g., MA, MS, Young, MEd, [employer], ERNIE) 05/08/2019 Sex and Gender Information Value [...] documented as of this encounter Care Teams Still Operator Helper Relationship Specialty Start Date End Date Elsewhere, Pcp PCP - General Internal Medicine 05/02/22 [facility] [address] [place], [place] [address] Laboratory Medicine 07/19/20 documented as of this encounter
--- OUTSIDE RECORDS SUMMARY | 2023-10-26 11:07 | XMS_ITS | Encounter Summary ---
Author Name Unknown Organization [facility] Address [address] [place] [address] Care Team Providers Care Agency Legal Counsel Name Role Phone Elsewhere, Pcp Primary Care Provider Unavailabl e Encounter Details Date Type Department Care Team (Latest Contact Info) Description 03/02/2023 10:50 AM CDT - 03/02/2023 11:59 PM CDT Hospital Encounter Department of Laboratory Medicine and Pathology, [facility] in [place], [place] [address] [place] [phone] BryceHoward M.D. [address] [place] [phone] Transplant Renal (HCC) Discharge Disposition: Home or [...] week 05/12/2021 How often do you attend [facility] or amish services? Never 05/12/2021 Do you belong to any clubs o r organizations such as sikh groups, unions, fraternal or athletic [...] Answer Date Recorded PHQ-2 Score 0 02/27/2019 [facility] of Occupat ional Health - Occupational [...] Master's degree (e.g., MA, MS, Young, MEd, LAW FIRM RECEPTIONIST, ERNIE) 05/08/2019 Sex and Gender Information Value [...] Associated Diagnosis Comments TACROLIMUS LEVEL, B Routine 03/21/2023 7 :45 AM CDT Transplant Renal (HCC) documented in this encounter Results * Tacrolimus, B (03/21/2023 7:45 AM CDT) Tacrolimus, Trough 6.7 5.0-15.0 (Trough) ng/mL 03/22/2023 10:32 AM CDT [facility] Comment: ----ADDITIONAL INFORMATION---- Target steady-state trough concentrations vary depending on the type of transplant, concomitant immunosuppression, clinical/institutional protocols, and time post-transplant. Results should be interpreted in conjunction with this clinical information and any physical signs/symptoms of rejection/toxicity. Testing performed by Liquid Chromatography-Tandem Mass Spectrometry (LC-MS/MS). This test was developed and its performance characteristics determined by [facility] in a manner consistent with CLIA requirements. This test has not been cleared or approved by the U.S. Food and Drug Administration. Blood (Blood, Venous) 03/21/2023 7:45 AM CDT 03/22/2023 7:18 AM CDT Howard Wu M.D. LAB BLOOD NON ADD-ON [facility] [address] [place] [address] [facility] [address] [place] [address] [place] [address] documented in this encounter Visit Diagnoses Diagnosis Transplant Renal (HCC) documented in this encounter Additional Health Concerns Infection Onset Date Last Indicated Resolved Time Protective Environment 01/03/2023 01/03/2023 Assessment Noted Time PHQ-9 Depression Total Score: 0 07/17/20 17 1:08 PM CDT documented as of this encounter Care Teams Agency Legal Counsel Relationship Specialty Start Date End Date Elsewhere, Pcp PCP - General Internal Medicine 05/02/22 [facility] [address] [place], [place] [address] Laboratory Medicine 07/19/20 documented as of this encounter
--- OUTSIDE RECORDS SUMMARY | 2023-10-26 11:07 | XMS_ITS | Encounter Summary ---
Author Name Unknown Organization [facility] Address [address] [place] [address] Care Team Providers Care Electrical Superintendent Name Role Phone Elsewhere, Pcp Primary Care Provider Unavailabl e Reason for Visit * Reason Onset Date Comments Tacrolimus Adjustment Protocol 03/22/2023 Encounter Details Date Type Department Care Team (Latest Contact Info) Description 03/22/2023 Clinical Communication [facility] in [place], [place] [address] [place] [phone] Eleni Henley [address] [place] [phone] Tacrolimus Adjustment Protocol Social History Tobacco Use [...] How often do you attend chur or alevism services? Never 05/12/2021 Do you belong to any clubs o r organizations such as muslim groups, unions, fraternal or athletic [...] Answer Date Recorded PHQ-2 Score 0 02/27/2019 [facility] of Occupat ional Health - Occupational [...] Master's degree (e.g., MA, MS, Young, MEd, FILLING MACHINE TENDER, ERNIE) 05/08/2019 Sex and Gender Information Value Date Recorded Sex Assigned at Male 05/27/2018 8:52 AM CDT Gender Identity Male 05/27/2018 8:52 AM CDT Sexual Orientation Straight 05/27/2018 8: 52 AM CDT documented as of this encounter Miscellaneous Notes * Telephone Encounter - Eleni Henley R.N., C.C.T.C. - 03/22/2023 3:45 PM CDT Tacrolimus level within goal range of 6-8, assuming true trough level. Current Tacrolimus dose 2 mgtwice daily. documented in this encounter Plan of Treatment Not on file documented as of this encounter Visit Diagnoses Not on filedocumented in this encounter Additional Health Concerns Infection Onset Date Last Indicated Resolved Time Protective Environment 01/03/2023 01/03/2023 Assessment Noted Time PHQ-9 Depression Total Score: 0 07/17/20 17 1:08 PM CDT documented as of this encounter Care Teams Electrical Superintendent Relationship Specialty Start Date End Date Elsewhere, Pcp PCP - General Internal Medicine 05/02/22 [facility] [address] [place], [place] [address] Laboratory Medicine 07/19/20 documented as of this encounter
--- OUTSIDE RECORDS SUMMARY | 2023-10-26 11:07 | XMS_ITS | Encounter Summary ---
Author Name Unknown Organization [facility] Address [address] [place] [address] Care Team Providers Care Pump Assembler Name Role Phone Elsewhere, Pcp Primary Care Provider Unavailabl e Reason for Visit * Reason Onset Date Comments Tacrolimus Adjustment Protocol 01/03/2023 Encounter Details Date Type Department Care Team (Latest Contact Info) Description 01/03/2023 Clinical Communication [facility] [place], [place] [address] [place] [address] Regla Perez, RKgN., CCTN Tacrolimus Adjustment Protocol Social History Tobacco Use [...] How often do you attend chur or latter day services? Never 05/12/2021 Do you belong to any clubs o r organizations such as restoration groups, unions, fraternal or athletic [...] Answer Date Recorded PHQ-2 Score 0 02/27/2019 [facility] - Occupational Stress Questionnaire Answer Date Recorded [...] or slept in a detention (including now)? No 05/12/2021 Nutrition Answer Date [...] Master's degree (e.g., MA, MS, Young, MEd, CULTURE MANAGER, ERNIE) 05/08/2019 Sex and Gender Information Value Date Recorded Sex Assigned at Male 05/27/2018 8:52 AM CDT Gender Identity Male 05/27/2018 8:52 AM CDT Sexual Orientation Straight 05/27/2018 8: 52 AM CDT documented as of this encounter Miscellaneous Notes * Telephone Encounter - Regla Perez R.N., CCTN - 01/03/2023 7:29 AM CDT Tacrolimus level 6.6 within goal range of 6-8, per Tacrolimus [...] documented as of this encounter Care Teams Pump Assembler Relationship Specialty Start Date End Date Elsewhere, Pcp PCP - General Internal Medicine 05/02/22 [facility] [address] [place], [place] [address] Laboratory Medicine 07/19/20 documented as of this encounter
--- OUTSIDE RECORDS SUMMARY | 2023-10-26 11:08 | XMS_ITS ---
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 as Active Follow-up on 05/22/2011 Kidney CoordinatorTXP POST KIDNEY NURSE TEAM 1 [facility] Phone: N/A Fax: N/A Email: N/A [place] Organ Diagnosis Organ Primary Contributory Kidney IgA Nephropathy Donor Information Organ ABO Source Meets Risk Criteria HLA Match Mismatches Cross Match Left Kidney Transplanted O Pos Live A: B: DR: T cell (Negative) B cell (Negative) Left Kidney Donor Serology Results Anti-HBcAb No results on file HBsAg No results on file HBsAb No results on file HBV DNA No results on file Anti-HCV No results on file HCV RNA No results on file HAV No results on file Anti-HIV I/II No results on file HIV RNA No results on file Anti-HTLV I/II No results on file Coccidioides No results on file Anti-CMV No results on file Quantiferon TB No results on file EBV Total No results on file EBV IgG No results on file EBV IgM No results on file EBNA No results on file Measles No results on file Mumps No results on file Rubella No results on file Varicella Zoster No results on file HSV 1 No results on file HSV 2 No results on file Toxoplasma No results on file Cryptococcus Ag No results on file Histoplasma No results on file Strongyloides No results on file Schistosom a No results on file Trypanosoma cruzi No results on file RPR/VDRL No results on file Syphilis No results on file RSV No results on file SARS CoV-2 No results on file HBV NOEMI No results on file HCV NOEMI No results on file Care Team Name Role Phone Fax Email TXP POST KIDNEY NURSE TEAM 1 [facility] Kidney Coordinator N/A N/A N/A Kami Gutierrez M.D. Transplant External Managing Rn Spine [phone] [email or web address] Post-Transplant Pre-Transplant Admitted: 05/22/2011 Referred: 12/12/2007 Transplanted: 05/22/2011 Evaluation began: 1 Discharged: 05/25/2011 Center waitlisted: 1
--- OUTSIDE RECORDS SUMMARY | 2023-10-26 11:08 | XMS_ITS | Encounter Summary ---
Author Name Unknown Organization [facility] Address [address] [place] [address] Care Team Providers Care Transportation Services Representative Name Role Phone Elsewhere, Pcp Primary Care Provider Unavailabl e Reason for Visit * Reason Comments Med Refill Encounter Details Date Type Department Care Team (Late st Contact Info) Description 12/12/2022 Refill Joey Ferrer [facility] in [place], [place] [address] [place] [phone] Nasra Montalvo APRN, C.N.P., D.N.P. [address] [place] [phone] Med Refill Social History Tobacco Use Types [...] week 05/12/2021 How often do you attend [facility] or adventism services? Never 05/12/2021 Do you belong to any clubs o r organizations such as congregational groups, unions, fraternal or athletic [...] Date Recorded PHQ-2 Score 0 02/27/2019 [facility] Occupat ional Health - [...] Master's degree (e.g., MA, MS, Young, MEd, LEGAL SERVICE SPECIALIST, ERNIE) 05/08/2019 Sex and Gender Information Value [...] documented as of this encounter Care Teams Transportation Services Representative Relationship Specialty Start Date End Date Elsewhere, Pcp PCP - General Internal Medicine 05/02/22 [facility] [address] [place], [place] [address] Laboratory Medicine 07/19/20 documented as of this encounter
--- OUTSIDE RECORDS SUMMARY | 2023-10-26 11:08 | XMS_ITS | Encounter Summary ---
Author Name Unknown Organization [facility] Address [address] [place] [address] Care Team Providers Care Crisis Clinician Name Role Phone Elsewhere, Pcp Primary Care Provider Unavailabl e Encounter Details Date Type Department Care Team (Late st Contact Info) Description 11/22/2022 Orders Only Joey christina [facility] in [place], [place] [address] [place] [phone] BryceHoward M.D. [address] [place] [phone] Transplant Renal (HCC) Social History Tobacco Use [...] How often do you attend chur or methodist services? Never 05/12/2021 Do you [...] Date Recorded PHQ-2 Score 0 02/27/2019 [facility] [place] [facility] - Occupational Stress [...] slept in a care home (including now)? No 05/12/2021 Nutrition Answer [...] Master's degree (e.g., MA, MS, Young, MEd, EMPLOYEE WELFARE MANAGER, ERNIE) 05/08/2019 Sex and Gender Information Value Date Recorded Sex Assigned at Male 05/27/2018 8:52 AM CDT Gender Identity Male 05/27/2018 8:52 AM CDT Sexual Orientation Straight 05/27/2018 8: 52 AM CDT documented as of this encounter Plan of Treatment Not on file documented as of this encounter Results * Tacrolimus, B (01/01/2023 7:40 AM CDT) Tacrolimus, Trough 6.6 5.0-15.0 (Trough) ng/mL 01/02/2023 10:13 AM CDT [facility] Comment: ----ADDITIONAL INFORMATION---- Target steady-state trough concentrations vary depending on the type of transplant, concomitant immunosuppression, clinical/institutional protocols, and time post-transplant. Results should be interpreted in conjunction with this clinical information and any physical signs/symptoms of rejection/toxicity. Testing performed by Liquid Chromatography-Tandem Mass Spectrometry (LC-MS/MS). This test was developed and its performance characteristics determined by [facility] in a manner consistent with CLIA requirements. This test has not been cleared or approved by the U.S. Food and Drug Administration. Blood (Blood, Venous) 01/01/2023 7:40 AM CDT 01/02/2023 7:11 AM CDT Howard Wu M.D. LAB BLOOD NON ADD-ON [facility] [address] [place] [address] [facility] [address] [place] [address] documented in this encounter Visit Diagnoses Diagnosis Transplant Renal (HCC) documented in this encounter Additional Health Concerns Assessment Noted Time PHQ-9 Depression Total Score: 0 07/17/20 17 1:08 PM CDT documented as of this encounter Care Teams Crisis Clinician Relationship Specialty Start Date End Date Elsewhere, Pcp PCP - General Internal Medicine 05/02/22 [facility] [address] [place], [place] [address] Laboratory Medicine 07/19/20 documented as of this encounter
--- OUTSIDE RECORDS SUMMARY | 2023-10-26 11:08 | XMS_ITS | Encounter Summary ---
Author Name Unknown Organization [facility] Address [address] [place] [address] Care Team Providers Care Hand Bender Name Role Phone Elsewhere, Pcp Primary Care Provider Unavailabl e Reason for Visit * Reason Onset Date Comments Txp Tacrolimus Adjustment Protocol - Liver 11/17 Encounter Details Date Type Department Care Team (Latest Contact Info) Description 11/17/2022 Clinical Communication Joey Gordillo [place] [facility] in [place], [place] [address] [place] [address] Lionel Shepherd [address] [place] [address] Txp Tacrolimus Adjustment Protocol - Liver Social History Tobacco Use Types Packs/Day Years [...] week 05/12/2021 How often do you attend [facility] or yazdanism services? Never 05/12/2021 Do you belong to [...] Answer Date Recorded PHQ-2 Score 0 02/27/2019 [facility] of Occupat ional [facility] - Occupational Stress Questionnaire Answer Date Recorded [...] Master's degree (e.g., MA, MS, Young, MEd, SHOTBLASTER, ERNIE) 05/08/2019 Sex and Gender Information Value Date Recorded Sex Assigned at Male 05/27/2018 8:52 AM CDT Gender Identity Male 05/27/2018 8:52 AM CDT Sexual Orientation Straight 05/27/2018 8: 52 AM CDT documented as of this encounter Miscellaneous Notes * Telephone Encounter - Lionel Shepherd R.N., C.C.T.C. - 11/17/2022 11:52 AM CST Tacrolimus level within goal range of 6-8, per Tacrolimus Adjustment Protocol no dose change recommended. Current Tacrolimus dose 2mg twice a day. Other lab results received and reviewed, stable trends, continue monitoring every 3 months NESS TRANSFORMATION CONSULTANT documented in this encounter Plan of Treatment Not on file documented as of this encounter Visit Diagnoses Not on filedocumented in this encounter Additional Health Concerns Assessment Noted Time PHQ-9 Depression Total Score: 0 07/17/20 17 1:08 PM CDT documented as of this encounter Care Teams Hand Bender Relationship Specialty Start Date End Date Elsewhere, Pcp PCP - General Internal Medicine 05/02/22 [facility] [address] [place], [place] [address] Laboratory Medicine 07/19/20 documented as of this encounter
--- OUTSIDE RECORDS SUMMARY | 2023-10-26 11:08 | XMS_ITS | Encounter Summary ---
Author Name Unknown Organization [facility] Address [address] [place] [address] Care Team Providers Care Case Finisher Name Role Phone Elsewhere, Pcp Primary Care Provider Unavailabl e Encounter Details Date Type Department Care Team (Late st Contact Info) Description 11/14/2022 Orders Only Joey christina [facility] for Transplantation and Clinical Regeneration in [place], [place] [address] [place] [phone] External, Ordering ProviderJoel Social History Tobacco Use [...] often do you attend chur ch or mandaen services? Never 05/12/2021 Do you belong to any clubs o r organizations such as episcopalian groups, unions, fraternal or athletic [...] Answer Date Recorded PHQ-2 Score 0 02/27/2019 [facility] [place] of Occupat ional Health - Occupational Stress [...] Master's degree (e.g., MA, MS, Young, MEd, PRODUCTION BORING MACHINE OPERATOR, ERNIE) 05/08/2019 Sex and Gender Information Value Date Recorded Sex Assigned at Male 05/27/2018 8:52 AM CDT Gender Identity Male 05/27/2018 8:52 AM CDT Sexual Orientation Straight 05/27/2018 8: 52 AM CDT documented as of this encounter Plan of Treatment Not on file documented as of this encounter Procedures Procedure Name Priority Date/Time Associated Diagnosis Comments EXTM ALBUMIN, RANDOM, U Routine 11/14/2022 7:53 AM SURFACE SHIP USW SUPERVISOR EXTM POTASSIUM, S/P Routine 11/14/2022 7 :53 AM SURFACE SHIP USW SUPERVISOR EXTM PHOSPHORUS (INORGANIC), S Routine 11/14/2022 7:53 AM SURFACE SHIP USW SUPERVISOR EXTM MAGNESIUM, S Routine 11/14/2022 7:5 3 AM SURFACE SHIP USW SUPERVISOR EXTM GLUCOSE, RANDOM, S/P Routine 11/14/2022 7:53 AM SURFACE SHIP USW SUPERVISOR EXTM CREATININE WITH EGFR, S/P Routine 11/14/2022 7:53 AM SURFACE SHIP USW SUPERVISOR EXTP COMPLETE BLOOD COUNT, BLOOD Routine 11/14/2022 7:53 AM SURFACE SHIP USW SUPERVISOR documented in this encounter Results * EXT Albumin, Random, Urine (11/14/2022 7:53 AM SURFACE SHIP USW SUPERVISOR) EXT Creatinine, Urine 47.6 mg/dL [facility] EXT Microalbumin-R andom, U <1 mg/dL [facility] EXT Albumin/Creati nine Ratio 20 0 - 30 Ratio [facility] 11/14/2022 7:53 AM SURFACE SHIP USW SUPERVISOR [facility] - 11/17/2022 9:26 AM SURFACE SHIP USW SUPERVISOR Source result document attached to Order Number [id number] ([id number]) dated 11/14/2022. External results verified in Extract by Lori Alonso on 11/17/2022 at 09:24 AM. Ordering Provider External Joel LAB URIN E ORDERABLES Performing Organization Address [facility]/ZIP Co de Phone Number [facility] [address] [place] [address] * EXT Magnesium (11/14/2022 7:53 AM SURFACE SHIP USW SUPERVISOR) Pathologist [facility] EXT Magnesium 2.1 1.5 - 2.5 mg/dl [facility] 11/14/2022 7:53 AM SURFACE SHIP USW SUPERVISOR [facility]ATORY - 11/17/2022 9:26 AM SURFACE SHIP USW SUPERVISOR Source result document attached to Order Number [id number] ([id number]) dated 11/14/2022. External results verified in Extract by Lori Alonso on 11/17/2022 at 09:19 AM. Ordering Provider External Joel LAB BLOO D ADD-ON Performing Organization Address [facility]/ZIP Co de Phone Number [facility] [address] [place] [address] * EXT Phosphorus Inorganic (11/14/2022 7:53 AM SURFACE SHIP USW SUPERVISOR) Pathologist [facility] EXT Phosphorus (Inorganic), S 2.9 2.5 - 4.5 mg/dL [facility] 11/14/2022 7:53 AM SURFACE SHIP USW SUPERVISOR [facility]ATORY - 11/17/2022 9:26 AM SURFACE SHIP USW SUPERVISOR Source result document attached to Order Number [id number] ([id number]) dated 11/14/2022. External results verified in Extract by Lori Alonso on 11/17/2022 at 09:19 AM. Ordering Provider External Joel LAB BLOO D ADD-ON [facility] [address] [phone] * (ABNORMAL) EXT Glucose, Random (11/14/2022 7:53 AM SURFACE SHIP USW SUPERVISOR) EXT Glucose 132(H) 60 - 115 mg/dL [facility] 11/14/2022 7:53 AM SURFACE SHIP USW SUPERVISOR [facility]ORY - 11/17/2022 9:26 AM SURFACE SHIP USW SUPERVISOR Source result document attached to Order Number [id number] ([id number]) dated 11/14/2022. External results verified in Extract by Lori Alonso on 11/17/2022 at 09:19 AM. Ordering Provider Nicole Chung TROPONIN Performing Organization Address [facility]/RUST Co de Phone Number [facility] [address] [place] [address], [facility] [phone] * EXT Creatinine with Estimated GFR (11/14/2022 7:53 AM SURFACE SHIP USW SUPERVISOR) EXT Creatinine 1.3 0.5 - 1.5 mg/dL [facility] EXT Estimated GFR (eGFR) 64 ml/min [facility] 11/14/2022 7:53 AM SURFACE SHIP USW SUPERVISOR [facility] - 11/17/2022 9:26 AM SURFACE SHIP USW SUPERVISOR Source result document attached to Order Number [id number] ([id number]) dated 11/14/2022. External results verified in Extract by Lori Alonso on 11/17/2022 at 09:19 AM. Ordering Provider External Joel LAB BLOO D ADD-ON Performing Organization Address [facility]/ZIP Co de Phone Number [facility] [address] [phone] * EXT Potassium (11/14/2022 7:53 AM SURFACE SHIP USW SUPERVISOR) [facility] EXT Potassium 5.0 3.6 - 5.1 mmol/L [facility] 11/14/2022 7:53 AM SURFACE SHIP USW SUPERVISOR Narrative [facility] - 11/17/2022 9:26 AM SURFACE SHIP USW SUPERVISOR Source result document attached to Order Number [id number] ([id number]) dated 11/14/2022. External results verified in Extract by Lori Alonso on 11/17/2022 at 09:19 AM. Ordering Provider External Joel LAB HUDSONO Sheldon ADD-ON Performing Organization Address [facility]/ZIP Co de Phone Number [facility] [address] [phone] * (ABNORMAL) EXT Complete Blood Count, Blood (11/14/2022 7:53 AM SURFACE SHIP USW SUPERVISOR) [facility] EXT Leukocytes 4.31(L) 4.50 - 11.00 K/uL [facility] EXT RBC 4.43 4.30 - 5.90 m/uL [facility] EXT Hemoglobin 14.5 13.5 - 17.5 gm/dL [facility] EXT MCV 95 80 - 100 fL [facility] EXT Platelet Count 189 140 - 440 K/uL [facility] EXT Neutrophils 2.90 1.7 - 7.0 K/uL [facility] EXT Lymphocytes 1.00 0.90 - 2.90 K/uL [facility] EXT Monocytes 0.40 0.00 - 0.90 K/UL [facility] EXT Eosinophils 0.00 0.00 - 0.50 K/uL [facility] EXT Basophils 0.00 0.00 - 0.30 K/uL [facility] 11/14/2022 7:53 AM SURFACE SHIP USW SUPERVISOR Narrative [facility] - 11/17/2022 9:26 AM SURFACE SHIP USW SUPERVISOR External results verified in Extract by Lori Alonso on 11/17/2022 at 09:19 AM. Ordering Provider External M.DKg LAB BLOO D NON ADD-ON [facility] [address] [place] [address] [phone] documented in this encounter Visit Diagnoses Not on filedocumented in this encounter Additional Health Concerns Assessment Noted Time PHQ-9 Depression Total Score: 0 07/17/20 17 1:08 PM CDT documented as of this encounter Care Teams Case Finisher Relationship Specialty Start Date End Date Elsewhere, Pcp PCP - General Internal Medicine 05/02/22 [facility] [address] [place], [place] [address] Laboratory Medicine 07/19/20 documented as of this encounter
--- OUTSIDE RECORDS SUMMARY | 2023-10-26 11:08 | XMS_ITS | Encounter Summary ---
Author Name Unknown Organization [facility] Address [address] [place] [address] Care Team Providers Care Service Attendant Name Role Phone Elsewhere, Pcp Primary Care Provider Unavailabl e Encounter Details Date Type Department Care Team (Latest Contact Info) Description 11/23/2022 4:00 PM MACHINE FELLER - 11/23/2022 11:59 PM MACHINE FELLER Hospital Encounter Department of Laboratory Medicine and Pathology, [facility] in [place], [place] [address] [place] [address] BryceHoward M.D. [address] [place] [address] Transplant Renal (HCC) Discharge Disposition: Home or [...] or slept in a retirement (including now)? No 05/12/2021 Nutrition Answer Date [...] Master's degree (e.g., MA, MS, Young, MEd, NETWORK STRATEGIST, ERNIE) 05/08/2019 Sex and Gender Information Value [...] (six) months. 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 USE 1 SENSOR EVERY 14 DAYS DIRECTED 6 kit 3 10/05/2021 12/15/2022 ketoconazole (NIZORAL) 2 % shampooIndications:In tertrigo Apply [...] THE PM TEVA BRAND 270 capsule 2 01/31/2022 12/12/2022 predniSONE (DELTASONE) 5 mg tabletIndications:Tra nsplant Renal [...] Associated Diagnosis Comments TACROLIMUS LEVEL, B Routine 01/01/2023 7 :40 AM CDT Transplant Renal (HCC) documented in this encounter Results * Tacrolimus, B (01/01/2023 7:40 AM CDT) Tacrolimus, Trough 6.6 5.0-15.0 (Trough) ng/mL 01/02/2023 10:13 AM CDT [facility] Comment: ----ADDITIONAL INFORMATION---- Target steady-state trough concentrations vary depending on the type of transplant, concomitant immunosuppression, clinical/institutional protocols, and time post-transplant. Results should be interpreted in conjunction with this clinical information and any physical signs/symptoms of rejection/toxicity. Testing performed by Liquid Chromatography-Tandem Mass Spectrometry (LC-MS/MS). This test was developed and its performance characteristics determined by [facility] in a manner consistent with CLIA requirements. This test has not been cleared or approved by the U.S. Food and Drug Administration. Blood (Blood, Venous) 01/01/2023 7:40 AM CDT 01/02/2023 7:11 AM CDT Howard Wu M.D. LAB BLOOD NON ADD-ON [facility] [address] [place] [address] [facility] [address] [place] [address] documented in this encounter Visit Diagnoses Diagnosis Transplant Renal (HCC) documented in this encounter Additional Health Concerns Assessment Noted Time PHQ-9 Depression Total Score: 0 07/17/20 17 1:08 PM CDT documented as of this encounter Care Teams Service Attendant Relationship Specialty Start Date End Date Elsewhere, Pcp PCP - General Internal Medicine 05/02/22 [facility] [address] [place], [place] [address] Laboratory Medicine 07/19/20 documented as of this encounter
--- NOTE | 2023-10-26 12:25 | W.ANESCHARGE ---
Anesthesia Charges Start Date/Time Anesthesia Start Date: 10/26/23 Anesthesia Start Time: 11:57 Stop Date/Time Anesthesia Stop Date: 10/26/23 Anesthesia Stop Time: 12:23
== END 2023-10-26 10:53 | disposition home or self-care (01) ==
LOC: OP CLINIC 10:53
PROVIDERS: PCP Internal Medicine; Visit Provider Internal Medicine
DX: Z12.11 Encounter for screening for malignant neoplasm of colon (principal)
CPT/HCPCS: 00812; 45378; J2704

== ENCOUNTER 2023-11-06 10:49 | Outpatient (REF) | payer BC, SELFPAY ==
--- OUTSIDE RECORDS SUMMARY | 2023-11-06 10:54 | XMS_ITS | Clinical Summary ---
Author Name Unknown Organization [facility] Address [place], [place] [address] Care Team Providers Care Brake Engineer Name Role Phone Jhoan Carmen MD Primary [...] age to complete this topic Care Teams Brake Engineer Relationship Specialty Start Date End Date Jhoan Carmen MD [address] [place] [address] PCP - General 01/30/06
--- OUTSIDE RECORDS SUMMARY | 2023-11-06 10:54 | XMS_ITS | Clinical Summary ---
Author Name Unknown Organization [facility] Address [address] [place] [address] Care Team Providers Care Bridge Design Engineer Name Role Phone Elsewhere, Pcp Primary Care Provider Unavailabl e Source Comments Patient records contain information from all sites at [facility]. For routine questions regarding patient records, call [phone] during business hours, M-F 8:00 AM - 5:00 PM Central Time. Record requests for emergency care only can be directed to [phone] at any time.[facility] Allergies Active Allergy Reactions Criticality Noted [...] Department Care Team Description 10/16/2023 7:04 AM WATER SANDER - 10/16/2023 11:59 PM [facility] Hospital Encounter Department of Laboratory Medicine and Pathology, [facility], in [place], [place] [address] [place] [phone] Bryce, Howard Cox M.D. Transplant Renal (HCC) Discharge Disposition: Home or Self Care 10/15/2023 [facility] [place], [place] [address] [place] [phone] Zabrina Marquez R.N., C.C.T.C. Transplant Renal (HCC) (Primary Dx) 10/11/2023 Clinical [facility] in [place], [place] [address] [place] [address] Eleni Henley R.N., C.C.T.C. Tacrolimus Adjustment Protocol 10/09/2023 Orders Only [facility] in [place], [place] [address] [place] [phone] External, Ordering Provider, Joel 10/09/2023 [facility] in [place], [place] [address] [place] [phone] External, Ordering Provider, Joel 09/04/2023 2:42 PM WATER SANDER - 09/04/2023 11:59 PM WATER SANDER Hospital Encounter Department of Laboratory Medicine and Pathology, [place], [place] [address] [place] [phone] Howard Wu M.D. Transplant Renal (HCC) Discharge Disposition: Home or Self Care 09/03/2023 [facility] in [place], [place] [address] [place] [phone] Howard Wu M.D. Transplant Renal (HCC) 08/30/2023 11:14 AM WATER SANDER - 08/30/2023 11:59 PM WATER SANDER Hospital Encounter Department of Radiology, [place], [place] [address] [place] [address] Elio Churchill M.D. Osteoporosis Discharge Disposition: Home or Self Care 08/30/2023 10:00 AM WATER SANDER Comprehensive Visit [facility] Transplantation and Clinical Regeneration in [place], [place] [address] [place] [phone] Josette Hannon M.D. Shah, Pankaj, M.D. Osteoporosis (Primary Dx); Hyperglycemia; Hyperlipidemia from Last [...] often do you attend chur ch or congregational services? Never 05/12/2021 Do you belong to [...] Answer Date Recorded PHQ-2 Score 0 02/27/2019 [facility] - Occupational Stress Questionnaire Answer Date Recorded [...] Master's degree (e.g., MA, MS, Young, MEd, MEAT PROCESSING CENTER MANAGER, ERNIE) 05/08/2019 Sex and Gender Information [...] 187.7 cm (6' 1.9) 08/30/2023 9:55 AM WATER SANDER Body Mass Index 20.25 05/30/2023 9:00 AM [...] this topic Medical Devices Implanted Type Area Pattern Mechanic Device Identifier Shelf Expiration Date Model / Serial / Lot Stent Uret Dbl. J 7 X 12 - Chopra [id number] Implanted:Qty: 1 on 05/22/2011 Ureteral Stent Other/Legacy - See Implant Description Description:Device Manufactu rer - [employer]. Device Status Text - [id number]. Procedures Procedure Name Priority Date/Time Associated Diagnosis Comments EXTM ALBUMIN, RANDOM, U Routine 10/09/2023 7:50 AM WATER SANDER EXTM HEMOGLOBIN A1C, B Routine 10/09/2023 7:45 AM WATER SANDER EXTM MAGNESIUM, S Routine 10/09/2023 7:4 5 AM WATER SANDER EXTM PHOSPHORUS (INORGANIC), S Routine 10/09/2023 7:45 AM WATER SANDER EXTM GLUCOSE, RANDOM, S/P Routine 10/09/2023 7:45 AM WATER SANDER EXTM CREATININE WITH EGFR, S/P Routine 10/09/2023 7:45 AM WATER SANDER EXTM POTASSIUM, S/P Routine 10/09/2023 7:45 AM WATER SANDER EXTP COMPLETE BLOOD COUNT, BLOOD Routine 10/09/2023 7:45 AM WATER SANDER TACROLIMUS LEVEL, B Routine 10/09/2023 7:45 AM WATER SANDER Transplant Renal (HCC) BMD BONE DENSITY SPINE HIPS RAD - Routine (most inpatients and all outpatients) 08/30/2023 11:52 AM WATER SANDER Osteoporosis from Last 3 Months Results * EXT Albumin, Random, Urine (10/09/2023 7:50 AM WATER SANDER) EXT Creatinine, Urine 117.0 mg/dL SCANNED REPORT EXT Microalbumin-Ra ndom, U <1 mg/dL SCANNED REPORT EXT Albumin/Creatin ine Ratio 0 0 - 30 mg/g SCANNED REPORT 10/09/2023 7:50 AM WATER SANDER Narrative SCANNED REPORT - 10/12/2023 3:06 PM WATER SANDER Source result document attached to Order Number [id number] ([id number]) dated 10/09/2023. External results verified in Extract by Earnestine Duran on 10/12/2023 at 03:02 PM. Ordering Provider External Joel LAB URIN E ORDERABLES SCANNED REPORT * EXT Potassium (10/09/2023 7:45 AM WATER SANDER) Pathologist [facility] EXT Potassium 4.6 3.6 - 5.1 mmol/L SCANNED REPORT 10/09/2023 7:45 AM WATER SANDER Narrative SCANNED REPORT - 10/12/2023 3:06 PM WATER SANDER Source result document attached to Order Number [id number] ([id number]) dated 10/09/2023. External results verified in Extract by Earnestine Duran on 10/12/2023 at 03:02 PM. Ordering Provider Nicole Maldonado LAB BLOO D ADD-ON SCANNED REPORT * EXT Phosphorus Inorganic (10/09/2023 7:45 AM WATER SANDER) EXT Phosphorus (Inorganic), S 3.6 0.5 - 4.5 mg/dL SCANNED REPORT 10/09/2023 7:45 AM WATER SANDER Narrative SCANNED REPORT - 10/12/2023 3:06 PM WATER SANDER Source result document attached to Order Number [id number] ([id number]) dated 10/09/2023. External results verified in Extract by Earnestine Duran on 10/12/2023 at 03:02 PM. Ordering Provider External Joel LAB HUDSONO Sheldon ADD-ON SCANNED REPORT * EXT Magnesium (10/09/2023 7:45 AM WATER SANDER) EXT Magnesium 1.8 1.5 - 2.6 mg/dL SCANNED REPORT 10/09/2023 7:45 AM WATER SANDER Narrative SCANNED REPORT - 10/12/2023 3:06 PM WATER SANDER Source result document attached to Order Number [id number] ([id number]) dated 10/09/2023. External results verified in Extract by Earnestine Duran on 10/12/2023 at 03:02 PM. Ordering Provider External Joel Chung ADD-ON Performing Organization Address City/[facility] Co de Phone Number SCANNED REPORT * (ABNORMAL) EXT Hemoglobin A1c (10/09/2023 7:45 AM WATER SANDER) EXT Hemoglobin A1c, B 6.7(H) 0 - 5.6 % SCANNED REPORT 10/09/2023 7:45 AM WATER SANDER Narrative SCANNED REPORT - 10/15/2023 8:26 AM WATER SANDER External results verified in Extract by Patricia Allen on 10/15/2023 at 08:22 AM. Ordering Provider Nicole Maldonado LAB BLOO Sheldon ADD-ON Performing Organization Address City/[facility]/ZIP Co de Phone Number SCANNED REPORT * (ABNORMAL) EXT Glucose, Random (10/09/2023 7:45 AM WATER SANDER) EXT Glucose 169(H) 60 - 115 mg/dL SCANNED REPORT 10/09/2023 7:45 AM WATER SANDER Narrative SCANNED REPORT - 10/12/2023 3:06 PM WATER SANDER Source result document attached to Order Number [id number] ([id number]) dated 10/09/2023. External results verified in Extract by Earnestine Duran on 10/12/2023 at 03:02 PM. Ordering Provider External Joel LAB BLOO D TROPONIN Performing Organization Address [facility] Co de Phone Number SCANNED REPORT * (ABNORMAL) EXT Creatinine with Estimated GFR (10/09/2023 7:45 AM WATER SANDER) [facility] EXT Creatinine 1.8(H) 0.5 - 1.5 mg/dL SCANNED REPORT EXT Estimated GFR (eGFR) 44 ml/min SCANNED REPORT 10/09/2023 7:45 AM WATER SANDER Narrative SCANNED REPORT - 10/12/2023 3:06 PM WATER SANDER Source result document attached to Order Number [id number] ([id number]) dated 10/09/2023. External results verified in Extract by Earnestine Duran on 10/12/2023 at 03:02 PM. Ordering Provider Nicole Maldonado LAB BLOO D ADD-ON Performing Organization Address [facility] Co de Phone Number SCANNED REPORT * (ABNORMAL) EXT Complete Blood Count, Blood (10/09/2023 7:45 AM WATER SANDER) [facility] EXT Leukocytes 3.29(L) 4.50 - 11.00 K/uL [...] 0.30 K/uL SCANNED REPORT 10/09/2023 7:45 AM WATER SANDER Narrative SCANNED REPORT - 10/12/2023 3:06 PM WATER SANDER External results verified in Extract by Earnestine Duran on 10/12/2023 at 03:02 PM. Ordering Provider External MTereso LAB BLOO D NON ADD-ON SCANNED REPORT * Tacrolimus, B (10/09/2023 7:45 AM WATER SANDER) Tacrolimus, Trough 12.5 5.0-15.0 (Trough) ng/mL 10/10/2023 10:03 AM WATER SANDER [facility] Comment: ----ADDITIONAL INFORMATION---- Target steady-state trough concentrations vary depending on the type of transplant, concomitant immunosuppression, clinical/institutional protocols, and time post-transplant. Results should be interpreted in conjunction with this clinical information and any physical signs/symptoms of rejection/toxicity. Testing performed by Liquid Chromatography-Tandem Mass Spectrometry (LC-MS/MS). This test was developed and its performance characteristics determined by [facility] in a manner consistent with CLIA requirements. This test has not been cleared or approved by the U.S. Food and Drug Administration. Blood (Blood, Venous) 10/09/2023 7:45 AM WATER SANDER 10/10/2023 7:07 AM WATER SANDER Howard Wu M.D. LAB BLOOD NON ADD-ON [facility] [address] [place] [address] [facility] [address] [place] [address] [place] [address] * BMD Bone Density Spine Hips (08/30/2023 11:52 AM WATER SANDER) Anatomical Region Laterality Modality Hip, Lumbar Spine, Nuclear M edicine RST LOS, Musculoskeletal ARZ LOS, Muskuloskeletal FLA LOS N/A Radio graphic Imaging 08/30/2023 11:5 4 AM WATER SANDER Impressions 08/30/2023 11:56 AM WATER SANDER Osteoporosis DualFemur (region: Neck Left) Osteoporosis DualFemur (region: Neck Right) ?? Narrative 08/30/2023 11:56 AM WATER SANDER EXAM: ??BMD BONE DENSITY SPINE HIPS Bone Mineral Density (BMD) analysis performed on [employer] with serial number [id number]. COMPARISON: Serial Comparisons Left Total Hip results: [...] Bone Mineral Density (BMD) analysis performed on [employer] with serialnumber [id number]. COMPARISON: Serial Comparisons Left Total Hip results: [...] report, including images and graphs,is available in QREADS. In the absence of [...] Osteoporosis DualFemur (region: Neck Right) Elio Churchill M.D. IMG DXA PROCEDURES from Last 3 Months Additional Health Concerns Infection Onset Date Last Indicated Protective Environment 01/03/2023 3 Advance Directives For more information, please contact: [phone] Documents on File Type Date Recorded Patient Boiler Helper Expl anation Advance Directives 10/15/2019 9:33 AM [facility] Directive Advance Directives 11/30/2010 12:00 AM [place] document. See document viewer. Healthcare Agents on File Name Relationship Healthcare Agent [facility] p Communication Ameeta Humberto Spouse Health Care Agent Guido Morocho First Alternate Health Care Agent Jose Raul Morocho Second Alternate Health Care Agent Care Teams Bridge Design Engineer Relationship Specialty Start Date End Date Elsewhere, Pcp PCP - General Internal Medicine 05/02/22 [facility] [address] [place], [place] [address] Laboratory Medicine 07/19/20
--- OUTSIDE RECORDS SUMMARY | 2023-11-06 10:55 | XMS_ITS | Encounter Summary ---
Author Name Unknown Organization [facility] Address [address] [place] [address] Care Team Providers Care Audio Visual Facilities Engineer Name Role Phone Elsewhere, Pcp Primary Care Provider Unavailabl e Encounter Details Date Type Department Care Team (Late st Contact Info) Description 10/15/2023 Orders Only Joey christina [facility] and Clinical Regeneration in [place], [place] [address] [place] [phone] Zabrina Marquez R.N., C.C.T.C. [address] [place] [phone] Transplant Renal (HCC) (Primary Dx) Social History [...] you attend [facility] or congregational services? Never 05/12/2021 Do you belong to any clubs o r organizations such as taoism groups, unions, fraternal or athletic [...] Answer Date Recorded PHQ-2 Score 0 02/27/2019 [facility] [place] [facility] Occupat ional Health - [...] Master's degree (e.g., MA, MS, Young, MEd, PRISON TEACHER, ERNIE) 05/08/2019 Sex and Gender Information Value [...] documented as of this encounter Care Teams Audio Visual Facilities Engineer Relationship Specialty Start Date End Date Elsewhere, Pcp PCP - General Internal Medicine 05/02/22 [facility] [address] [place], [place] [address] Laboratory Medicine 07/19/20 documented as of this encounter
--- OUTSIDE RECORDS SUMMARY | 2023-11-06 10:55 | XMS_ITS | Encounter Summary ---
Author Name Unknown Organization [facility] Address [address] [place] [address] Care Team Providers Care Toilet Attendant Name Role Phone Elsewhere, Pcp Primary Care Provider Unavailabl e Reason for Visit * Reason Onset Date Comments Tacrolimus Adjustment Protocol 10/11/2023 Encounter Details Date Type Department Care Team (Latest Contact Info) Description 10/11/2023 Clinical Communication [facility] in [place], [place] [address] [place] [address] Eleni Henley R.N., C.C.T.C. [address] [place] [address] Tacrolimus Adjustment Protocol Social History Tobacco Use [...] week 05/12/2021 How often do you attend [facility] or gnosticist services? Never 05/12/2021 Do you belong to any clubs o r organizations such as religion groups, unions, fraternal or athletic [...] Answer Date Recorded PHQ-2 Score 0 02/27/2019 [facility] - Occupational Stress Questionnaire Answer Date [...] Master's degree (e.g., MA, MS, Young, MEd, AIRCRAFT MOTOR MECHANIC, ERNIE) 05/08/2019 Sex and Gender Information Value Date Recorded Sex Assigned at Male 05/27/2018 8:52 AM CDT Gender Identity Male 05/27/2018 8:52 AM CDT Sexual Orientation Straight 05/27/2018 8: 52 AM CDT documented as of this encounter Miscellaneous Notes * Telephone Encounter - Jose Boudreaux, Pharm.D., R.Ph. 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 LINE OPERATOR * Telephone Encounter - Eleni Henley R.N., C.C.T.C. 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 No New onset GOMEZ? No New onset tremor? No Pharmacy patient [facility] for immunosuppression: [facility] Any other pertinent information related to above [...] and 9pm would be something to try? LINE OPERATOR documented in this encounter Plan of Treatment Not on file documented as of this encounter Visit Diagnoses Not on filedocumented in this encounter Additional Health Concerns Infection Onset Date Last Indicated Resolved Time Protective Environment 01/03/2023 01/03/2023 Assessment Noted Time PHQ-9 Depression Total Score: 0 07/17/20 17 1:08 PM CDT documented as of this encounter Care Teams Toilet Attendant Relationship Specialty Start Date End Date Elsewhere, Pcp PCP - General Internal Medicine 05/02/22 [facility] [address] [place], [place] [address] Laboratory Medicine 07/19/20 documented as of this encounter
--- OUTSIDE RECORDS SUMMARY | 2023-11-06 10:55 | XMS_ITS ---
Author Name Unknown Organization [facility] Address [address] [place] [address] Care Team Providers Care Advanced Practice Psychiatric Nurse Name Role Phone Unavailable Unavailable Unavailable Surgery Details Not on file Complications Check Surgery Details section. Procedure Estimated Blood Loss Check Surgery Details section. Procedure Findings Check Surgery Details section. Procedure Specimens Taken Check Surgery Details section.
--- OUTSIDE RECORDS SUMMARY | 2023-11-06 10:55 | XMS_ITS | Referral Summary ---
Author Name Unknown Organization [facility] Address [address] [place] [address] Care Team Providers Care Bar Tender Name Role Phone Elsewhere, Pcp Primary Care Provider Unavailabl e Source Comments Patient records contain information from all sites at [facility]. For routine questions regarding patient records, call [phone] during business hours, M-F 8:00 AM - 5:00 PM Central Time. Record requests for emergency care only can be directed to [phone] at any time.[facility] Encounters Date Type Department Care Team Description 10/16/2023 7:04 AM SENIOR PRODUCT DEVELOPMENT SCIENTIST - 10/16/2023 11:59 PM [facility] Hospital Encounter Department of Laboratory Medicine and Pathology, [facility] in [place], [place] [address] [place] [address] Bryce, Howard Cox M.D. Transplant Renal (HCC) Discharge Disposition: Home or Self Care 10/15/2023 Orders Only Joey christina [facility] in [place], [place] [address] [place] [address] Zabrina Marquez R.N., C.C.T.C. Transplant Renal (HCC) (Primary Dx) 10/11/2023 Clinical Communication [facility] in [place], [place] [address] [place] [address] Eleni Henley R.N., C.C.T.C. Tacrolimus Adjustment Protocol 10/09/2023 Orders Only Joey Ferrer [facility] Trans[facility] in [place], [place] [address] [place] [address] External, Ordering ProviderJoel 10/09/2023 Orders Only Joey Ferrer [facility] in [place], [place] [address] [place] [address] External, Ordering Provider, Joel 09/04/2023 2:42 PM SENIOR PRODUCT DEVELOPMENT SCIENTIST - 09/04/2023 11:59 PM SENIOR PRODUCT DEVELOPMENT SCIENTIST Hospital Encounter Department of Laboratory Medicine and Pathology, [facility] in [place], [place] [address] [place] [address] Howard Wu M.D. Transplant Renal (HCC) Discharge Disposition: Home or Self Care 09/03/2023 Orders Only Joey Ferrer [facility] in [place], [place] [address] [place] [address] Howard Wu M.D. Transplant Renal (HCC) 08/30/2023 11:14 AM SENIOR PRODUCT DEVELOPMENT SCIENTIST - 08/30/2023 11:59 PM SENIOR PRODUCT DEVELOPMENT SCIENTIST Hospital Encounter Department of Radiology, [facility] in [place], [place] [address] [place] [address] Elio Churchill M.D. Osteoporosis Discharge Disposition: Home or Self Care 08/30/2023 10:00 AM SENIOR PRODUCT DEVELOPMENT SCIENTIST Comprehensive [facility] in [place], [place] [address] [place] [address] Josette Hannon M.D. Shah, Pankaj, M.D. 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 90 tablet 3 06/20/2023 Active mycophenolate (CELLCEPT) 250 mg capsuleIndications :Transplant Renal ([facility]) TAKE 2 CAPSULES BY MOUTH IN THE [...] often do you attend chur ch or jehovah's witness services? Never 05/12/2021 Do you belong to [...] Answer Date Recorded PHQ-2 Score 0 02/27/2019 [facility] of Occupat [facility] - Occupational Stress Questionnaire Answer Date [...] Master's degree (e.g., MA, MS, Young, MEd, SALES FLOOR ASSOCIATE, ERNIE) 05/08/2019 Sex and Gender Information Value [...] 187.7 cm (6' 1.9) 08/30/2023 9:55 AM SENIOR PRODUCT DEVELOPMENT SCIENTIST Body Mass Index 20.25 05/30/2023 9:00 AM CDT Plan of Treatment Not on file Medical Devices Implanted Type Area Irrigation Technician Device Identifier Shelf Expiration Date Model / Serial / Lot Stent Uret Dbl. J 7 X 12 - Chopra [id number] Implanted:Qty: 1 on 05/22/2011 Ureteral Stent Other/Legacy - See Implant Description Description:Device Manufactu rer - [employer]. Device Status Text - [id number]. Procedures Procedure Name Priority Date/Time Associated Diagnosis Comments EXTM ALBUMIN, RANDOM, U Routine 10/09/2023 7:50 AM SENIOR PRODUCT DEVELOPMENT SCIENTIST EXTM HEMOGLOBIN A1C, B Routine 10/09/2023 7:45 AM SENIOR PRODUCT DEVELOPMENT SCIENTIST EXTM MAGNESIUM, S Routine 10/09/2023 7:4 5 AM SENIOR PRODUCT DEVELOPMENT SCIENTIST EXTM PHOSPHORUS (INORGANIC), S Routine 10/09/2023 7:45 AM SENIOR PRODUCT DEVELOPMENT SCIENTIST EXTM GLUCOSE, RANDOM, S/P Routine 10/09/2023 7:45 AM SENIOR PRODUCT DEVELOPMENT SCIENTIST EXTM CREATININE WITH EGFR, S/P Routine 10/09/2023 7:45 AM SENIOR PRODUCT DEVELOPMENT SCIENTIST EXTM POTASSIUM, S/P Routine 10/09/2023 7:45 AM SENIOR PRODUCT DEVELOPMENT SCIENTIST EXTP COMPLETE BLOOD COUNT, BLOOD Routine 10/09/2023 7:45 AM SENIOR PRODUCT DEVELOPMENT SCIENTIST TACROLIMUS LEVEL, B Routine 10/09/2023 7:45 AM SENIOR PRODUCT DEVELOPMENT SCIENTIST Transplant Renal (HCC) BMD BONE DENSITY SPINE HIPS RAD - Routine (most inpatients and all outpatients) 08/30/2023 11:52 AM SENIOR PRODUCT DEVELOPMENT SCIENTIST Osteoporosis from Last 3 Months Results * EXT Albumin, Random, Urine (10/09/2023 7:50 AM SENIOR PRODUCT DEVELOPMENT SCIENTIST) EXT Creatinine, Urine 117.0 mg/dL SCANNED REPORT EXT Microalbumin-Ra ndom, U <1 mg/dL SCANNED REPORT EXT Albumin/Creatin ine Ratio 0 0 - 30 mg/g SCANNED REPORT 10/09/2023 7:50 AM SENIOR PRODUCT DEVELOPMENT SCIENTIST Narrative SCANNED REPORT - 10/12/2023 3:06 PM SENIOR PRODUCT DEVELOPMENT SCIENTIST Source result document attached to Order Number [id number] ([id number]) dated 10/09/2023. External results verified in Extract by Earnestine Duran on 10/12/2023 at 03:02 PM. Ordering Provider External M.D. LAB URIN E ORDERABLES SCANNED REPORT * EXT Potassium (10/09/2023 7:45 AM SENIOR PRODUCT DEVELOPMENT SCIENTIST) EXT Potassium 4.6 3.6 - 5.1 mmol/L SCANNED REPORT 10/09/2023 7:45 AM SENIOR PRODUCT DEVELOPMENT SCIENTIST Narrative SCANNED REPORT - 10/12/2023 3:06 PM SENIOR PRODUCT DEVELOPMENT SCIENTIST Source result document attached to Order Number [id number] ([id number]) dated 10/09/2023. External results verified in Extract by Earnestine Duran on 10/12/2023 at 03:02 PM. Ordering Provider Nicole Maldonado LAB YOLANDA Chung ADD-ON SCANNED REPORT * EXT Phosphorus Inorganic (10/09/2023 7:45 AM SENIOR PRODUCT DEVELOPMENT SCIENTIST) EXT Phosphorus (Inorganic), S 3.6 0.5 - 4.5 mg/dL SCANNED REPORT 10/09/2023 7:45 AM SENIOR PRODUCT DEVELOPMENT SCIENTIST Narrative SCANNED REPORT - 10/12/2023 3:06 PM SENIOR PRODUCT DEVELOPMENT SCIENTIST Source result document attached to Order Number [id number] ([id number]) dated 10/09/2023. External results verified in Extract by Earnestine Duran on 10/12/2023 at 03:02 PM. Ordering Provider Nicole Chung ADD-ON Performing Organization Address City/[facility]/ZIP Co de Phone Number SCANNED REPORT * EXT Magnesium (10/09/2023 7:45 AM SENIOR PRODUCT DEVELOPMENT SCIENTIST) EXT Magnesium 1.8 1.5 - 2.6 mg/dL SCANNED REPORT 10/09/2023 7:45 AM SENIOR PRODUCT DEVELOPMENT SCIENTIST Narrative SCANNED REPORT - 10/12/2023 3:06 PM SENIOR PRODUCT DEVELOPMENT SCIENTIST Source result document attached to Order Number [id number] ([id number]) dated 10/09/2023. External results verified in Extract by Earnestine Duran on 10/12/2023 at 03:02 PM. Ordering Provider Nicole Maldonado LAB YOLANDA Chung ADD-ON SCANNED REPORT * (ABNORMAL) EXT Hemoglobin A1c (10/09/2023 7:45 AM SENIOR PRODUCT DEVELOPMENT SCIENTIST) EXT Hemoglobin A1c, B 6.7(H) 0 - 5.6 % SCANNED REPORT 10/09/2023 7:45 AM SENIOR PRODUCT DEVELOPMENT SCIENTIST Narrative SCANNED REPORT - 10/15/2023 8:26 AM SENIOR PRODUCT DEVELOPMENT SCIENTIST External results verified in Extract by Patricia Allen on 10/15/2023 at 08:22 AM. Ordering Provider External Joel LAB BLOHui Chung ADD-ON Performing Organization Address [facility]/ZIP Co de Phone Number SCANNED REPORT * (ABNORMAL) EXT Glucose, Random (10/09/2023 7:45 AM SENIOR PRODUCT DEVELOPMENT SCIENTIST) EXT Glucose 169(H) 60 - 115 mg/dL SCANNED REPORT 10/09/2023 7:45 AM SENIOR PRODUCT DEVELOPMENT SCIENTIST Narrative SCANNED REPORT - 10/12/2023 3:06 PM SENIOR PRODUCT DEVELOPMENT SCIENTIST Source result document attached to Order Number [id number] ([id number]) dated 10/09/2023. External results verified in Extract by Earnestine Duran on 10/12/2023 at 03:02 PM. Ordering Provider External Joel Chung TROPONIN Performing Organization Address [facility] Co de Phone Number SCANNED REPORT * (ABNORMAL) EXT Creatinine with Estimated GFR (10/09/2023 7:45 AM SENIOR PRODUCT DEVELOPMENT SCIENTIST) EXT Creatinine 1.8(H) 0.5 - 1.5 mg/dL SCANNED REPORT EXT Estimated GFR (eGFR) 44 ml/min SCANNED REPORT 10/09/2023 7:45 AM SENIOR PRODUCT DEVELOPMENT SCIENTIST Narrative SCANNED REPORT - 10/12/2023 3:06 PM SENIOR PRODUCT DEVELOPMENT SCIENTIST Source result document attached to Order Number [id number] ([id number]) dated 10/09/2023. External results verified in Extract by Earnestine Duran on 10/12/2023 at 03:02 PM. Ordering Provider External Joel LAB YOLANDA Chung ADD-ON SCANNED REPORT * (ABNORMAL) EXT Complete Blood Count, Blood (10/09/2023 7:45 AM SENIOR PRODUCT DEVELOPMENT SCIENTIST) EXT Leukocytes 3.29(L) 4.50 - 11.00 K/uL [...] 0.30 K/uL SCANNED REPORT 10/09/2023 7:45 AM SENIOR PRODUCT DEVELOPMENT SCIENTIST Narrative SCANNED REPORT - 10/12/2023 3:06 PM SENIOR PRODUCT DEVELOPMENT SCIENTIST External results verified in Extract by Earnestine Duran on 10/12/2023 at 03:02 PM. Ordering Provider External M.D. LAB BLOO D NON ADD-ON SCANNED REPORT * Tacrolimus, B (10/09/2023 7:45 AM SENIOR PRODUCT DEVELOPMENT SCIENTIST) Tacrolimus, Trough 12.5 5.0-15.0 (Trough) ng/mL 10/10/2023 10:03 AM [facility] Comment: ----ADDITIONAL INFORMATION---- Target steady-state trough concentrations vary depending on the type of transplant, concomitant immunosuppression, clinical/institutional protocols, and time post-transplant. Results should be interpreted in conjunction with this clinical information and any physical signs/symptoms of rejection/toxicity. Testing performed by Liquid Chromatography-Tandem Mass Spectrometry (LC-MS/MS). This test was developed and its performance characteristics determined by [facility] in a manner consistent with CLIA requirements. This test has not been cleared or approved by the U.S. Food and Drug Administration. Blood (Blood, Venous) 10/09/2023 7:45 AM SENIOR PRODUCT DEVELOPMENT SCIENTIST 10/10/2023 7:07 AM SENIOR PRODUCT DEVELOPMENT SCIENTIST Howard Wu M.D. LAB BLOOD NON ADD-ON [facility] [address] [place] [address] [facility] [address] [place] [address] [place] [address] * BMD Bone Density Spine Hips (08/30/2023 11:52 AM SENIOR PRODUCT DEVELOPMENT SCIENTIST) Anatomical Region Laterality Modality Hip, Lumbar Spine, Nuclear M edicine RST LOS, Musculoskeletal ARZ LOS, Muskuloskeletal FLA LOS N/A Radio graphic Imaging 08/30/2023 11:5 4 AM SENIOR PRODUCT DEVELOPMENT SCIENTIST Impressions 08/30/2023 11:56 AM SENIOR PRODUCT DEVELOPMENT SCIENTIST Osteoporosis DualFemur (region: Neck Left) Osteoporosis DualFemur (region: Neck Right) ?? Narrative 08/30/2023 11:56 AM SENIOR PRODUCT DEVELOPMENT SCIENTIST EXAM: ??BMD BONE DENSITY SPINE HIPS Bone Mineral Density (BMD) analysis performed on [employer] with serial number [id number]. COMPARISON: Serial Comparisons Left Total Hip results: [...] including images and graphs, is available in [employer]. In the absence of other causes of [...] Bone Mineral Density (BMD) analysis performed on [employer] with serialnumber [id number]. COMPARISON: Serial Comparisons Left Total Hip results: [...] report, including images and graphs,is available in [employer]. In the absence of other causes of [...] DualFemur (region: Neck Right) Elio Churchill M.D. IMKenny DXA PROCEDURES from Last 3 Months Additional Health Concerns Infection Onset Date Last Indicated Protective Environment 01/03/2023 3 Advance Directives For more information, please contact: [phone] Documents on File Type Date Recorded Patient Supply Chain Technician Expl anation Advance Directives 10/15/2019 9:[address] [facility] th Care Directive Advance Directives 11/30/2010 12:00 AM [facility] document. See document viewer. Healthcare Agents on File Name Relationship Healthcare Agent [facility] p Communication Ammarla Humberto Spouse Health Care Agent Guido Morocho First Alternate Health Care Agent Jose Raul Morocho Second Alternate Health Care Agent Care Teams Bar Tender Relationship Specialty Start Date End Date Elsewhere, Pcp PCP - General Internal Medicine 05/02/22 [facility] [address] [place], [place] [address] Laboratory Medicine 07/19/20
--- OUTSIDE RECORDS SUMMARY | 2023-11-06 10:55 | XMS_ITS | Encounter Summary ---
Author Name Unknown Organization [facility] Address [address] [place] [address] Care Team Providers Care Tooling Manager Name Role Phone Elsewhere, Pcp Primary Care Provider Unavailabl e Encounter Details Date Type Department Care Team (Late st Contact Info) Description 10/09/2023 Orders Only Joey christina [facility] in [place], [place] [address] [place] [phone] External, Ordering ProviderJoel Social History Tobacco Use [...] often do you attend chur ch or latter day services? Never 05/12/2021 Do you belong to any clubs o r organizations such as jain groups, unions, fraternal or athletic [...] Answer Date Recorded PHQ-2 Score 0 02/27/2019 [facility] [place] of Occupat ional Health - Occupational Stress [...] Master's degree (e.g., MA, MS, Young, MEd, MUSICAL INSTRUMENT MAKER OR REPAIRER, ERNIE) 05/08/2019 Sex and Gender Information Value [...] HEMOGLOBIN A1C, B Routine 10/09/2023 7:45 AM SCHOOL CLERK documented in this encounter Results * (ABNORMAL) EXT Hemoglobin A1c (10/09/2023 7:45 AM SCHOOL CLERK) EXT Hemoglobin A1c, B 6.7(H) 0 - 5.6 % SCANNED REPORT 10/09/2023 7:45 AM SCHOOL CLERK Narrative SCANNED REPORT - 10/15/2023 8:26 AM SCHOOL CLERK External results verified in Extract by Patricia [...] documented as of this encounter Care Teams Tooling Manager Relationship Specialty Start Date End Date Elsewhere, Pcp PCP - General Internal Medicine 05/02/22 [facility] [address] [place], [place] [address] Laboratory Medicine 07/19/20 documented as of this encounter
--- OUTSIDE RECORDS SUMMARY | 2023-11-06 10:55 | XMS_ITS | Encounter Summary ---
Author Name Unknown Organization [facility] Address [address] [place] [address] Care Team Providers Care Hotel Dining Room Cashier Name Role Phone Elsewhere, Pcp Primary Care Provider Unavailabl e Encounter Details Date Type Department Care Team (Latest Contact Info) Description 10/16/2023 7:04 AM WALL TAPER HELPER - 10/16/2023 11:59 PM WALL TAPER HELPER Hospital Encounter Department of Laboratory Medicine and Pathology, [facility] in [place], [place] [address] [place] [address] BryceHoward M.D. [address] [place] [address] Transplant Renal (HCC) Discharge Disposition: Home or [...] often do you attend chur ch or hinduism services? Never 05/12/2021 Do you belong to any clubs o r organizations such as zoroastrianism groups, unions, fraternal or athletic [...] Answer Date Recorded PHQ-2 Score 0 02/27/2019 [facility] of Occupat ional Health - Occupational [...] Master's degree (e.g., MA, MS, Young, MEd, FIELD CONTACT PERSON, ERNIE) 05/08/2019 Sex and Gender Information Value [...] documented as of this encounter Care Teams Hotel Dining Room Cashier Relationship Specialty Start Date End Date Elsewhere, Pcp PCP - General Internal Medicine 05/02/22 [facility] [address] [place], [place] [address] Laboratory Medicine 07/19/20 documented as of this encounter
--- OUTSIDE RECORDS SUMMARY | 2023-11-06 10:56 | XMS_ITS | Encounter Summary ---
Author Name Unknown Organization [facility] Address [address] [place] [address] Care Team Providers Care Supervisor Nurse Name Role Phone Elsewhere, Pcp Primary Care Provider Unavailabl e Encounter Details Date Type Department Care Team (Late st Contact Info) Description 06/18/2023 Orders Only Joey christina [facility] Reg[facility] in [place], [place] [address] [place] [phone] External, Ordering ProviderJoel Social History Tobacco Use [...] often do you attend chur ch or church services? Never 05/12/2021 Do you belong to any clubs o r organizations such as cheondoism groups, unions, fraternal or athletic [...] Answer Date Recorded PHQ-2 Score 0 02/27/2019 [facility] [place] of Occupat ional Health - Occupational Stress [...] Master's degree (e.g., MA, MS, Young, MEd, OUTPATIENT INTERVIEWING CLERK, ERNIE) 05/08/2019 Sex and Gender Information Value [...] AM CDT) EXT Creatinine, Urine 80.0 mg/dL [facility] EXT Microalbumin-R andom, U <1 mg/dL [facility] EXT Albumin/Creati nine Ratio 10 0 - 30 MG/G [facility] 06/19/2023 7:45 AM CDT Narrative [facility] - 06/20/2023 3:41 PM CDT Source result document attached to Order Number [id number] ([id number]) dated 06/18/2023. External results verified in Extract by Patricia Allen on 06/20/2023 at 03:37 PM. Ordering Provider External M.D. LAB URIN E ORDERABLES Performing Organization Address City/State/[facility] Co de Phone Number [facility] [address] [place] [address] * (ABNORMAL) EXT Complete Blood Count, Blood (06/19/2023 7:40 AM CDT) [facility] EXT Leukocytes 3.70(L) 4.50 - 11.00 K/uL [facility] EXT RBC 4.30 4.30 - 5.90 m/uL [facility] EXT Hemoglobin 13.9 13.5 - 17.5 gm/dL [facility] EXT Hematocrit 40.8 37.0 - 53.0 % [facility] EXT MCV 95 80 - 100 fL [facility] EXT Platelet Count 181 140 - 440 K/uL [facility] EXT RDW 12.8 11.5 - 15.5 % [facility] EXT Neutrophils 2.30 1.7 - 7.0 K/uL [facility] EXT Lymphocytes 1.00 0.90 - 2.90 K/uL [facility] EXT Monocytes 0.40 0.00 - 0.90 K/UL [facility] EXT Eosinophils 0.00 0.00 - 0.50 K/uL [facility] EXT Basophils 0.00 0.00 - 0.30 K/uL [facility] 06/19/2023 7:40 AM CDT [facility] - 06/20/2023 3:41 PM CDT Source result document attached to Order Number [id number] ([id number]) dated 06/18/2023. External results verified in Extract by Patricia Allen on 06/20/2023 at 03:37 PM. Ordering Provider External Joel LAB BLOO D NON ADD-ON Performing Organization Address [facility]/ZIP Co de Phone Number [facility] [address] [phone] * EXT Magnesium (06/18/2023 7:40 AM CDT) EXT Magnesium 2.0 1.5 - 2.6 mg/dL [facility] 06/18/2023 7:40 AM CDT [facility] - 06/20/2023 3:41 PM CDT Source result document attached to Order Number [id number] ([id number]) dated 06/18/2023. External results verified in Extract by Patricia Allen on 06/20/2023 at 03:37 PM. Ordering Provider External Joel LAB BLOO D ADD-ON Performing Organization Address [facility]/ZIP Co de Phone Number [facility] [address] [phone] * EXT Phosphorus Inorganic (06/18/2023 7:40 AM CDT) EXT Phosphorus (Inorganic), S 3.2 2.5 - 4.5 mg/dL [facility] 06/18/2023 7:40 AM CDT [facility] - 06/20/2023 3:41 PM CDT Source result document attached to Order Number [id number] ([id number]) dated 06/18/2023. External results verified in Extract by Patricia Allen on 06/20/2023 at 03:37 PM. Ordering Provider External Joel LAB BLOO D ADD-ON [facility] [address] [phone] * (ABNORMAL) EXT Glucose, Random (06/18/2023 7:40 AM CDT) EXT Glucose 153(H) 60 - 115 mg/dL [facility] 06/18/2023 7:40 AM CDT [facility] - 06/20/2023 3:41 PM CDT Source result document attached to Order Number [id number] ([id number]) dated 06/18/2023. External results verified in Extract by Patricia Allen on 06/20/2023 at 03:37 PM. Ordering Provider External Joel LAB BLOO D TROPONIN Performing Organization Address [facility]/ZIP Co de Phone Number [facility] [address] [phone] * EXT Creatinine with Estimated GFR (06/18/2023 7:40 AM CDT) EXT Creatinine 1.5 0.5 - 1.5 mg/dL [facility] EXT Estimated GFR (eGFR) 54 ml/min [facility] 06/18/2023 7:40 AM CDT [facility] - 06/20/2023 3:41 PM CDT Source result document attached to Order Number [id number] ([id number]) dated 06/18/2023. External results verified in Extract by Patricia Allen on 06/20/2023 at 03:37 PM. Ordering Provider External Joel LAB BLOO D ADD-ON Performing Organization Address City/[facility]/ZIP Co de Phone Number [facility] [address] [phone] * EXT Potassium (06/18/2023 7:40 AM CDT) EXT Potassium 4.3 3.6 - 5.1 mmol/L [facility] 06/18/2023 7:40 AM CDT Narrative [facility] - 06/20/2023 3:41 PM CDT External results verified in Extract by Patricia Allen on 06/20/2023 at 03:37 PM. Ordering Provider External MTereso LAB BLOO D ADD-ON [facility] [address] [place] [address] [phone] documented in this encounter Visit Diagnoses Not on filedocumented in this encounter Additional Health Concerns Infection Onset Date Last Indicated Resolved Time Protective Environment 01/03/2023 01/03/2023 Assessment Noted Time PHQ-9 Depression Total Score: 0 07/17/20 17 1:08 PM CDT documented as of this encounter Care Teams Supervisor Nurse Relationship Specialty Start Date End Date Elsewhere, Pcp PCP - General Internal Medicine 05/02/22 [facility] [address] [place] [address] Laboratory Medicine 07/19/20 documented as of this encounter
--- OUTSIDE RECORDS SUMMARY | 2023-11-06 10:56 | XMS_ITS | Encounter Summary ---
Author Name Unknown Organization [facility] Address [address] [place] [address] Care Team Providers Care Teamcenter Consultant Name Role Phone Elsewhere, Pcp Primary Care Provider Unavailabl e Encounter Details Date Type Department Care Team (Late st Contact Info) Description 09/03/2023 Orders Only Joey christina [facility] for Transplantation and Clinical Regeneration in [place], [place] [address] [place] [phone] BryceHoward M.D. [address] [place] [phone] Transplant Renal (HCC) Social History Tobacco Use [...] How often do you attend chur or yarsanism services? Never 05/12/2021 Do you belong to [...] Answer Date Recorded PHQ-2 Score 0 02/27/2019 [facility] of Occupat ional Health - Occupational Stress [...] Master's degree (e.g., MA, MS, Young, MEd, ELEMENTARY SUBSTITUTE TEACHER, ERNIE) 05/08/2019 Sex and Gender Information Value Date Recorded Sex Assigned at Male 05/27/2018 8:52 AM CDT Gender Identity Male 05/27/2018 8:52 AM CDT Sexual Orientation Straight 05/27/2018 8: 52 AM CDT documented as of this encounter Plan of Treatment Not on file documented as of this encounter Results * Tacrolimus, B (10/09/2023 7:45 AM LIMOUSINE RENTAL CLERK) Tacrolimus, Trough 12.5 5.0-15.0 (Trough) ng/mL 10/10/2023 10:03 AM LIMOUSINE RENTAL CLERK [facility] Comment: ----ADDITIONAL INFORMATION---- Target steady-state trough concentrations vary depending on the type of transplant, concomitant immunosuppression, clinical/institutional protocols, and time post-transplant. Results should be interpreted in conjunction with this clinical information and any physical signs/symptoms of rejection/toxicity. Testing performed by Liquid Chromatography-Tandem Mass Spectrometry (LC-MS/MS). This test was developed and its performance characteristics determined by [facility] in a manner consistent with CLIA requirements. This test has not been cleared or approved by the U.S. Food and Drug Administration. Blood (Blood, Venous) 10/09/2023 7:45 AM LIMOUSINE RENTAL CLERK 10/10/2023 7:07 AM LIMOUSINE RENTAL CLERK Howard Wu M.D. LAB BLOOD NON ADD-ON [facility] [address] [place] [address] [facility] [address] [place] [address] documented in this encounter Visit Diagnoses Diagnosis Transplant Renal (HCC) documented in this encounter Additional Health Concerns Infection Onset Date Last Indicated Resolved Time Protective Environment 01/03/2023 01/03/2023 Assessment Noted Time PHQ-9 Depression Total Score: 0 07/17/20 17 1:08 PM CDT documented as of this encounter Care Teams Teamcenter Consultant Relationship Specialty Start Date End Date Elsewhere, Pcp PCP - General Internal Medicine 05/02/22 [facility] [address], [place] [address] Laboratory Medicine 07/19/20 documented as of this encounter
--- OUTSIDE RECORDS SUMMARY | 2023-11-06 10:56 | XMS_ITS | Encounter Summary ---
Author Name Unknown Organization [facility] Address 200 [place] [address] Care Team Providers Care Delivery Nurse Name Role Phone Elsewhere, Pcp Primary Care Provider Unavailabl e Reason for Referral * Outpatient (Routine) - Closed Specialty Diagnoses / Procedures Referred By Contac t Referred To Contact Diagnoses Osteoporosis Procedures BMD Bone Density Spine Hips Elio Churchill M.D. 200 [place] [phone] [facility] Referral ID Status Reason Start Date Expiration Date Visits Re quested Visits Authorized [id number] Closed 08/30/2023 08/29/2024 1 1 FLIGHT REFUELING OPERATOR Reason for Visit * Outpatient (Routine) - Closed Specialty Diagnoses / Procedures Referred By Contac t Referred To Contact Diagnoses Osteoporosis Procedures BMD Bone Density Spine Hips Elio Churchill M.D. 200 [place] [address] [facility] Referral ID Status Reason Start Date Expiration Date Visits Re quested Visits Authorized [id number] Closed 08/30/2023 08/29/2024 1 1 Encounter Details Date Type Department Care Team (Latest Contact Info) Description 08/30/2023 11:14 AM IN FLIGHT REFUELING OPERATOR - 08/30/2023 11:59 PM IN FLIGHT REFUELING OPERATOR Hospital Encounter Department of Radiology, [facility], in [place], [place] [address] [place] [address] Elio Churchill M.D. 200 [place] [address] Osteoporosis Discharge Disposition: Home or Self Care [...] 05/12/2021 How often do you attend [facility] or advent services? Never 05/12/2021 Do you belong to any clubs o r organizations such as restorationist groups, unions, fraternal or athletic [...] Answer Date Recorded PHQ-2 Score 0 02/27/2019 [facility] of Occupat ional Health - Occupational Stress [...] Master's degree (e.g., MA, MS, Young, MEd, BLACKING WHEEL TENDER, ERNIE) 05/08/2019 Sex and Gender Information [...] mycophenolate (CELLCEPT) 250 mg capsuleIndications:Tr ansplant Renal ([facility]) TAKE 2 CAPSULES BY MOUTH IN THE [...] inpatients and all outpatients) 08/30/2023 11:52 AM IN FLIGHT REFUELING OPERATOR Osteoporosis documented in this encounter Results * BMD Bone Density Spine Hips (08/30/2023 11:52 AM IN FLIGHT REFUELING OPERATOR) Anatomical Region Laterality Modality Hip, Lumbar Spine, Nuclear M edicine RST LOS, Musculoskeletal ARZ LOS, Muskuloskeletal FLA LOS N/A Radio graphic Imaging 08/30/2023 11:5 4 AM IN FLIGHT REFUELING OPERATOR Impressions 08/30/2023 11:56 AM IN FLIGHT REFUELING OPERATOR Osteoporosis DualFemur (region: Neck Left) Osteoporosis DualFemur (region: Neck Right) ?? Narrative 08/30/2023 11:56 AM IN FLIGHT REFUELING OPERATOR EXAM: ??BMD BONE DENSITY SPINE HIPS Bone Mineral Density (BMD) analysis performed on [employer] with serial number [id number]. COMPARISON: Serial Comparisons Left Total Hip results: [...] including images and graphs, is available in [employer]. In the absence of other causes of [...] Bone Mineral Density (BMD) analysis performed on [employer] with serialnumber [id number]. COMPARISON: Serial Comparisons Left Total Hip results: [...] report, including images and graphs,is available in [employer]. In the absence of other causes of [...] documented as of this encounter Care Teams Delivery Nurse Relationship Specialty Start Date End Date Elsewhere, Pcp PCP - General Internal Medicine 05/02/22 [facility] [address] [place], [place] [address] Laboratory Medicine 07/19/20 documented as of this encounter
--- OUTSIDE RECORDS SUMMARY | 2023-11-06 10:56 | XMS_ITS | Encounter Summary ---
Author Name Unknown Organization [facility] Address [address] [place] [address] Care Team Providers Care Cranberry Farm Supervisor Name Role Phone Elsewhere, Pcp Primary Care Provider Unavailabl e Encounter Details Date Type Department Care Team (Late st Contact Info) Description 05/30/2023 Orders Only Joey christina [facility] for Transplantation and Clinical Regeneration in [place], [place] [address] [place] [phone] BryceHoward M.D. [address] [place] [phone] Transplant Renal (HCC) Social History Tobacco Use [...] How often do you attend chur or jainism services? Never 05/12/2021 Do you belong to any clubs o r organizations such as hoahaoism groups, unions, fraternal or athletic [...] Answer Date Recorded PHQ-2 Score 0 02/27/2019 [facility] of Occupat ional Health - [...] or slept in a prison (including now)? No 05/12/2021 Nutrition Answer Date [...] Master's degree (e.g., MA, MS, Young, MEd, BILINGUAL ELEMENTARY SCHOOL TEACHER, ERNIE) 05/08/2019 Sex and Gender Information [...] 5.0-15.0 (Trough) ng/mL 06/20/2023 10:47 AM CDT [facility] Comment: ----ADDITIONAL INFORMATION---- Target steady-state trough concentrations vary depending on the type of transplant, concomitant immunosuppression, clinical/institutional protocols, and time post-transplant. Results should be interpreted in conjunction with this clinical information and any physical signs/symptoms of rejection/toxicity. Testing performed by Liquid Chromatography-Tandem Mass Spectrometry (LC-MS/MS). This test was developed and its performance characteristics determined by [facility] in a manner consistent with CLIA requirements. This test has not been cleared or approved by the U.S. Food and Drug Administration. Blood (Blood, Venous) 06/19/2023 7:40 AM CDT 06/20/2023 7:34 AM CDT Narrative Resulting Agency Comment Mailed In Specimen Howard Wu M.D. LAB BLOOD NON ADD-ON [facility] [address] [place] [address] [facility] [address] [place] [place] [address] documented in this encounter Visit Diagnoses Diagnosis Transplant Renal (HCC) documented in this encounter Additional Health Concerns Infection Onset Date Last Indicated Resolved Time Protective Environment 01/03/2023 01/03/2023 Assessment Noted Time PHQ-9 Depression Total Score: 0 07/17/20 17 1:08 PM CDT documented as of this encounter Care Teams Cranberry Farm Supervisor Relationship Specialty Start Date End Date Elsewhere, Pcp PCP - General Internal Medicine 05/02/22 [facility] [address] [place], [place] [address] Laboratory Medicine 07/19/20 documented as of this encounter
--- OUTSIDE RECORDS SUMMARY | 2023-11-06 10:56 | XMS_ITS | Encounter Summary ---
Author Name Unknown Organization [facility] Address [address] [place] [address] Care Team Providers Care Warp Coiler Name Role Phone Elsewhere, Pcp Primary Care Provider Unavailabl e Reason for Visit * Reason Comments Med Refill Encounter Details Date Type Department Care Team (Late st Contact Info) Description 06/11/2023 Refill Division of Nephrology and Hypertension in [place], [place] [address] [place] [phone] Josette Hannon M.D. [address] [place] [phone] Med Refill Social History Tobacco Use Types [...] week 05/12/2021 How often do you attend [facility] or jainism services? Never 05/12/2021 Do you [...] Master's degree (e.g., MA, MS, Young, MEd, NUT TIGHTENER, ERNIE) 05/08/2019 Sex and Gender Information Value [...] documented as of this encounter Care Teams Warp Coiler Relationship Specialty Start Date End Date Elsewhere, Pcp PCP - General Internal Medicine 05/02/22 [facility] [address] [place], [place] [address] Laboratory Medicine 07/19/20 documented as of this encounter
--- OUTSIDE RECORDS SUMMARY | 2023-11-06 10:56 | XMS_ITS | Encounter Summary ---
Author Name Unknown Organization [facility] Address [address] [place] [address] Care Team Providers Care Hide Dyer Name Role Phone Elsewhere, Pcp Primary Care Provider Unavailabl e Encounter Details Date Type Department Care Team (Latest Contact Info) Description 09/04/2023 2:42 PM BUSINESS WRITER - 09/04/2023 11:59 PM BUSINESS WRITER Hospital Encounter Department of Laboratory Medicine and Pathology, [facility] in [place], [place] [address] [place] [address] BryceHoward M.D. [address] [place] [address] Transplant Renal (HCC) Discharge Disposition: Home or [...] often do you attend chur ch or sabianism services? Never 05/12/2021 Do you belong to any clubs o r organizations such as confucianist groups, unions, fraternal or athletic [...] Answer Date Recorded PHQ-2 Score 0 02/27/2019 [facility] of Occupat ional Health - Occupational Stress [...] Master's degree (e.g., MA, MS, Young, MEd, CIRCUIT BOARD ASSEMBLER, ERNIE) 05/08/2019 Sex and Gender Information [...] LEVEL, B Routine 10/09/2023 7 :45 AM BUSINESS WRITER Transplant Renal (HCC) documented in this encounter Results * Tacrolimus, B (10/09/2023 7:45 AM BUSINESS WRITER) Tacrolimus, Trough 12.5 5.0-15.0 (Trough) ng/mL 10/10/2023 10:03 AM BUSINESS WRITER [facility] Comment: ----ADDITIONAL INFORMATION---- Target steady-state trough concentrations vary depending on the type of transplant, concomitant immunosuppression, clinical/institutional protocols, and time post-transplant. Results should be interpreted in conjunction with this clinical information and any physical signs/symptoms of rejection/toxicity. Testing performed by Liquid Chromatography-Tandem Mass Spectrometry (LC-MS/MS). This test was developed and its performance characteristics determined by [facility] in a manner consistent with CLIA requirements. This test has not been cleared or approved by the U.S. Food and Drug Administration. Blood (Blood, Venous) 10/09/2023 7:45 AM BUSINESS WRITER 10/10/2023 7:07 AM BUSINESS WRITER Howard G Bryce M.D. LAB BLOOD NON ADD-ON [facility] [address] [place] [address] [facility] [address] [place] [address] documented in this encounter Visit Diagnoses Diagnosis Transplant Renal (HCC) documented in this encounter Additional Health Concerns Infection Onset Date Last Indicated Resolved Time Protective Environment 01/03/2023 01/03/2023 Assessment Noted Time PHQ-9 Depression Total Score: 0 07/17/20 17 1:08 PM CDT documented as of this encounter Care Teams Hide Dyer Relationship Specialty Start Date End Date Elsewhere, Pcp PCP - General Internal Medicine 05/02/22 [facility] [address] [place], [place] [address] Laboratory Medicine 07/19/20 documented as of this encounter
--- OUTSIDE RECORDS SUMMARY | 2023-11-06 10:56 | XMS_ITS | Encounter Summary ---
Author Name Unknown Organization [facility] Address [address] [place] [address] Care Team Providers Care Sole Leveler Name Role Phone Elsewhere, Pcp Primary Care Provider Unavailabl e Reason for Visit * Reason Comments Med Refill Encounter Details Date Type Department Care Team (Late st Contact Info) Description 06/19/2023 Refill Joey Ferrer [facility] for Transplantation and Clinical Regeneration in [place], [place] [address] [place] [phone] Nasra Montalvo APRN, C.N.P., D.N.P. [address] [place] [phone] Med Refill Social History Tobacco Use Types [...] week 05/12/2021 How often do you attend [facility] or sabianism services? Never 05/12/2021 Do you [...] Answer Date Recorded PHQ-2 Score 0 02/27/2019 [facility] of Occupat ional Health [...] slept in a senior care (including now)? No 05/12/2021 Nutrition Answer Date [...] Master's degree (e.g., MA, MS, Young, MEd, ANTENNA ENGINEER, ERNIE) 05/08/2019 Sex and Gender Information Value [...] documented as of this encounter Care Teams Sole Leveler Relationship Specialty Start Date End Date Elsewhere, Pcp PCP - General Internal Medicine 05/02/22 [facility] [address] [place], [place] [address] Laboratory Medicine 07/19/20 documented as of this encounter
--- OUTSIDE RECORDS SUMMARY | 2023-11-06 10:56 | XMS_ITS | Encounter Summary ---
Author Name Unknown Organization [facility] Address [address] [place] [address] Care Team Providers Care Door Fitter Name Role Phone Elsewhere, Pcp Primary Care Provider Unavailabl e Encounter Details Date Type Department Care Team (Late st Contact Info) Description 10/09/2023 Orders Only Joey christina [facility] for Transplantation and Clinical Regeneration in [place], [place] [address] [place] [phone] External, Ordering ProviderJoel Social History Tobacco Use [...] often do you attend chur ch or restorationist services? Never 05/12/2021 Do you belong to any clubs o r organizations such as worship groups, unions, fraternal or athletic [...] Answer Date Recorded PHQ-2 Score 0 02/27/2019 [facility] of Occupat ional Health - Occupational Stress [...] Master's degree (e.g., MA, MS, Young, MEd, DEHYDROGENATION OPERATOR, ERNIE) 05/08/2019 Sex and Gender Information [...] ALBUMIN, RANDOM, U Routine 10/09/2023 7:50 AM CYLINDER INSPECTOR AND TESTER EXTM POTASSIUM, S/P Routine 10/09/2023 7 :45 AM CYLINDER INSPECTOR AND TESTER EXTM PHOSPHORUS (INORGANIC), S Routine 10/09/2023 7:45 AM CYLINDER INSPECTOR AND TESTER EXTM MAGNESIUM, S Routine 10/09/2023 7:4 5 AM CYLINDER INSPECTOR AND TESTER EXTM GLUCOSE, RANDOM, S/P Routine 10/09/2023 7:45 AM CYLINDER INSPECTOR AND TESTER EXTM CREATININE WITH EGFR, S/P Routine 10/09/2023 7:45 AM CYLINDER INSPECTOR AND TESTER EXTP COMPLETE BLOOD COUNT, BLOOD Routine 10/09/2023 7:45 AM CYLINDER INSPECTOR AND TESTER documented in this encounter Results * EXT Albumin, Random, Urine (10/09/2023 7:50 AM CYLINDER INSPECTOR AND TESTER) EXT Creatinine, Urine 117.0 mg/dL SCANNED REPORT EXT Microalbumin-Ra ndom, U <1 mg/dL SCANNED REPORT EXT Albumin/Creatin ine Ratio 0 0 - 30 mg/g SCANNED REPORT 10/09/2023 7:50 AM CYLINDER INSPECTOR AND TESTER Narrative SCANNED REPORT - 10/12/2023 3:06 PM CYLINDER INSPECTOR AND TESTER Source result document attached to Order Number [id number] ([id number]) dated 10/09/2023. External results verified in Extract by Earnestine Duran on 10/12/2023 at 03:02 PM. Ordering Provider External Joel LAB URIN E ORDERABLES SCANNED REPORT * EXT Magnesium (10/09/2023 7:45 AM CYLINDER INSPECTOR AND TESTER) Pathologist [facility] EXT Magnesium 1.8 1.5 - 2.6 mg/dL SCANNED REPORT 10/09/2023 7:45 AM CYLINDER INSPECTOR AND TESTER Narrative SCANNED REPORT - 10/12/2023 3:06 PM CYLINDER INSPECTOR AND TESTER Source result document attached to Order Number [id number] ([id number]) dated 10/09/2023. External results verified in Extract by Earnestine Duran on 10/12/2023 at 03:02 PM. Ordering Provider External Joel LAB BLOO D ADD-ON SCANNED REPORT * EXT Phosphorus Inorganic (10/09/2023 7:45 AM CYLINDER INSPECTOR AND TESTER) Pathologist [facility] EXT Phosphorus (Inorganic), S 3.6 0.5 - 4.5 mg/dL SCANNED REPORT 10/09/2023 7:45 AM CYLINDER INSPECTOR AND TESTER Narrative SCANNED REPORT - 10/12/2023 3:06 PM CYLINDER INSPECTOR AND TESTER Source result document attached to Order Number [id number] ([id number]) dated 10/09/2023. External results verified in Extract by Earnestine Duran on 10/12/2023 at 03:02 PM. Ordering Provider Nicole Maldonado LAB BLOO D ADD-ON Performing Organization Address [facility]/ZIP Co de Phone Number SCANNED REPORT * (ABNORMAL) EXT Glucose, Random (10/09/2023 7:45 AM CYLINDER INSPECTOR AND TESTER) EXT Glucose 169(H) 60 - 115 mg/dL SCANNED REPORT 10/09/2023 7:45 AM CYLINDER INSPECTOR AND TESTER Narrative SCANNED REPORT - 10/12/2023 3:06 PM CYLINDER INSPECTOR AND TESTER Source result document attached to Order Number [id number] ([id number]) dated 10/09/2023. External results verified in Extract by Eranestine Duran on 10/12/2023 at 03:02 PM. Ordering Provider External Joel LAB YOLANDA Chung TROPONIN Performing Organization Address [facility] Co de Phone Number SCANNED REPORT * (ABNORMAL) EXT Creatinine with Estimated GFR (10/09/2023 7:45 AM CYLINDER INSPECTOR AND TESTER) EXT Creatinine 1.8(H) 0.5 - 1.5 mg/dL SCANNED REPORT EXT Estimated GFR (eGFR) 44 ml/min SCANNED REPORT 10/09/2023 7:45 AM CYLINDER INSPECTOR AND TESTER Narrative SCANNED REPORT - 10/12/2023 3:06 PM CYLINDER INSPECTOR AND TESTER Source result document attached to Order Number [id number] ([id number]) dated 10/09/2023. External results verified in Extract by Earnestine Duran on 10/12/2023 at 03:02 PM. Ordering Provider Nicole Maldonado LAB BLOO D ADD-ON Performing Organization Address [facility]/ZIP Co de Phone Number SCANNED REPORT * EXT Potassium (10/09/2023 7:45 AM CYLINDER INSPECTOR AND TESTER) EXT Potassium 4.6 3.6 - 5.1 mmol/L SCANNED REPORT 10/09/2023 7:45 AM CYLINDER INSPECTOR AND TESTER Narrative SCANNED REPORT - 10/12/2023 3:06 PM CYLINDER INSPECTOR AND TESTER Source result document attached to Order Number [id number] ([id number]) dated 10/09/2023. External results verified in Extract by Earnestine Duran on 10/12/2023 at 03:02 PM. Ordering Provider Nicole Chung ADD-ON SCANNED REPORT * (ABNORMAL) EXT Complete Blood Count, Blood (10/09/2023 7:45 AM CYLINDER INSPECTOR AND TESTER) EXT Leukocytes 3.29(L) 4.50 - 11.00 K/uL [...] 0.30 K/uL SCANNED REPORT 10/09/2023 7:45 AM CYLINDER INSPECTOR AND TESTER Narrative SCANNED REPORT - 10/12/2023 3:06 PM CYLINDER INSPECTOR AND TESTER External results verified in Extract by Earnestine [...] documented as of this encounter Care Teams Door Fitter Relationship Specialty Start Date End Date Elsewhere, Pcp PCP - General Internal Medicine 05/02/22 [facility] [address] [place], [place] [address] Laboratory Medicine 07/19/20 documented as of this encounter
--- OUTSIDE RECORDS SUMMARY | 2023-11-06 10:56 | XMS_ITS | Encounter Summary ---
Author Name Unknown Organization [facility] Address [address] [place] [address] Care Team Providers Care Fibre Optic Cable Splicer Name Role Phone Elsewhere, Pcp Primary Care Provider Unavailabl e Reason for Visit * Reason Comments Med Refill Encounter Details Date Type Department Care Team (Late st Contact Info) Description 06/27/2023 Refill Division of Nephrology and Hypertension in [place], [place] [address] [place] [address] Josette Hannon M.D. [address] [place] [phone] Med Refill Social History Tobacco Use Types [...] do you attend [facility] or sikh services? Never 05/12/2021 Do you belong to any clubs o r organizations such as samaritan groups, unions, fraternal or athletic [...] Answer Date Recorded PHQ-2 Score 0 02/27/2019 [facility] of Occupat ional Health - [...] or slept in a halfway (including now)? No 05/12/2021 Nutrition Answer Date [...] Master's degree (e.g., MA, MS, Young, MEd, CLINICAL STAFF RN, ERNIE) 05/08/2019 Sex and Gender Information Value [...] documented as of this encounter Care Teams Fibre Optic Cable Splicer Relationship Specialty Start Date End Date Elsewhere, Pcp PCP - General Internal Medicine 05/02/22 [facility] [address] [place], [place] [id number] Laboratory Medicine 07/19/20 documented as of this encounter
--- OUTSIDE RECORDS SUMMARY | 2023-11-06 10:56 | XMS_ITS | Encounter Summary ---
Author Name Unknown Organization [facility] Address [address] [place] [address] Care Team Providers Care Single Corner Cutter Name Role Phone Elsewhere, Pcp Primary Care Provider Unavailabl e Reason for Referral * Outpatient (Routine) - Authorized Specialty Diagnoses / Procedures Referred By Contac t Referred To Contact Diagnoses Osteoporosis Procedures BMD Bone Density Spine Hips Elio Churchill M.D. 200 [place] [phone] [facility] Referral ID Status Reason Start Date Expiration Date V isits Requested Visits Authorized [id number] Authorized 08/30/2023 08/29/2024 1 1 COORDINATOR * Outpatient (Routine) - Closed Specialty Diagnoses / Procedures Referred By Contac t Referred To Contact Diagnoses Osteoporosis Procedures BMD Bone Density Spine Hips Elio Churchill M.D. 200 [place] [address] [facility] Referral ID Status Reason Start Date Expiration Date Visits Re quested Visits Authorized [id number] Closed 08/30/2023 08/29/2024 1 1 COORDINATOR Reason for Visit * Transplant (Routine) - Closed Specialty Diagnoses / Procedures Referred By Contac t Referred To Contact Transplant Diagnoses Hyperglycemia Josette Hannon M.D. [address] [place] [phone] [facility] Referral ID Status Reason Start Date Expiration Date Visits Re quested Visits Authorized [id number] Closed 05/30/2023 05/29/2024 1 1 Encounter Details Date Type Department Care Team (Latest Contact Info) Description 08/30/2023 10:00 AM DATA COORDINATOR Comprehensive Visit Joey Ferrer [facility] for Transplantation and Clinical Regeneration in [place], [place] [address] [place] [phone] Josette Hannon M.D. [address] [place] [phone] Elio Churchill M.D. [address] [place] [phone] Osteoporosis (Primary Dx); Hyperglycemia; Hyperlipidemia Social History [...] often do you attend chur ch or zoroastrian services? Never 05/12/2021 Do you belong to any clubs o r organizations such as lutheran groups, unions, fraternal or athletic [...] Answer Date Recorded PHQ-2 Score 0 02/27/2019 [facility] - Occupational Stress Questionnaire Answer [...] Master's degree (e.g., MA, MS, Young, MEd, INSIDE SALES SPECIALIST, ERNIE) 05/08/2019 Sex and Gender Information [...] 187.7 cm (6' 1.9) 08/30/2023 9:55 AM DATA COORDINATOR Body Mass Index - - documented in this encounter Progress Notes * Elio Churchill M.D. - 08/30/2023 10:00 AM CST ENDOCRINOLOGY, METABOLISM, DIABETES AND NUTRITION [facility] Evaluation Note REFERRAL Josette Hannon M.D. DEMOGRAPHIC INFORMATION Patient Name: Tyler Morocho Age/ Sex: 57 y.o. male Date of : 1965 Address: [address] [place] [phone] Service Date/ Time: 08/30/2023 10:09 DATA COORDINATOR Volleyball Coach: Elio Churchill M.D. SUBJECTIVE CHIEF COMPLAINT/ PURPOSE [...] He has eliminated carbs/rice/bread. I reviewed the [employer] download for 28 days between April [...] reviewed by Dr. Ty of endocrinology in 2017 and none were found. He was also [...] to the final goal quickly over days. COORDINATOR documented in this encounter Plan of Treatment Scheduled Orders Name Type Priority Associated Diagnoses Orde r Schedule BMD Bone Density Spine Hips Imaging RAD - Routine (most inpatients and all outpatients) Osteoporosis Expected: 08/30/2024 (Approximate), Expires: 11/28/2024 documented as of this encounter Results * BMD Bone Density Spine Hips (08/30/2023 11:52 AM DATA COORDINATOR) Anatomical Region Laterality Modality Hip, Lumbar Spine, Nuclear M edicine RST LOS, Musculoskeletal ARZ LOS, Muskuloskeletal FLA LOS N/A Radio graphic Imaging 08/30/2023 11:5 4 AM DATA COORDINATOR Impressions 08/30/2023 11:56 AM DATA COORDINATOR Osteoporosis DualFemur (region: Neck Left) Osteoporosis DualFemur (region: Neck Right) ?? Narrative 08/30/2023 11:56 AM DATA COORDINATOR EXAM: ??BMD BONE DENSITY SPINE HIPS Bone Mineral Density (BMD) analysis performed on Hacker[employer] with serial number [id number]. COMPARISON: Serial Comparisons Left Total Hip results: [...] including images and graphs, is available in [facility]. In the absence of other causes of [...] Bone Mineral Density (BMD) analysis performed on Hacker[employer] with serialnumber [id number]. COMPARISON: Serial Comparisons Left Total Hip results: [...] report, including images and graphs,is available in [facility]. In the absence of other causes of [...] documented as of this encounter Care Teams Single Corner Cutter Relationship Specialty Start Date End Date Elsewhere, Pcp PCP - General Internal Medicine 05/02/22 [facility] [address] [place], [place] [address] Laboratory Medicine 07/19/20 documented as of this encounter
--- OUTSIDE RECORDS SUMMARY | 2023-11-06 10:56 | XMS_ITS | Encounter Summary ---
Author Name Unknown Organization [facility] Address [address] [place] [address] Care Team Providers Care Roll Hand Name Role Phone Elsewhere, Pcp Primary Care Provider Unavailabl e Encounter Details Date Type Department Care Team (Late st Contact Info) Description 06/01/2023 Orders Only Joey christina [facility] in [place], [place] [address] [place] [phone] Lucia Castillo R.N., C.C.T.C. [address] [place] [phone] Transplant Renal (HCC) (Primary Dx); High Risk [...] week 05/12/2021 How often do you attend [facility] or bahai services? Never 05/12/2021 Do you belong to any clubs o r organizations such as oriental orthodox groups, unions, fraternal or [...] 02/27/2019 [facility] of Occupat ional Health - Occupational Stress [...] or slept in a chcf (including now)? No 05/12/2021 Nutrition Answer Date [...] Master's degree (e.g., MA, MS, Young, MEd, CHARGING OPERATOR, ERNIE) 05/08/2019 Sex and Gender Information [...] documented as of this encounter Care Teams Roll Hand Relationship Specialty Start Date End Date Elsewhere, Pcp PCP - General Internal Medicine 05/02/22 [facility] [address] [place], [place] [address] Laboratory Medicine 07/19/20 documented as of this encounter
--- OUTSIDE RECORDS SUMMARY | 2023-11-06 10:56 | XMS_ITS | Encounter Summary ---
Author Name Unknown Organization [facility] Address [address] [place] [address] Care Team Providers Care Pool Table Operator Name Role Phone Elsewhere, Pcp Primary Care Provider Unavailabl e Reason for Referral * Outpatient (Routine) - Closed Specialty Diagnoses / Procedures Referred By Samantha limon Referred To Contact Diagnoses Transplant Renal (HCC) Procedures DX Chest AP or PA and Lateral 2 Views Josette Hannon M.D. 200 [place] [phone] [facility] Referral ID Status Reason Start Date Expiration Date Visits Re quested Visits Authorized [id number] Closed 03/14/2023 03/13/2024 1 1 Reason for Visit * Outpatient (Routine) - Closed Specialty Diagnoses / Procedures Referred By Samantha limon Referred To Contact Diagnoses Transplant Renal (HCC) Procedures DX Chest AP or PA and Lateral 2 Views Josette Hannon M.D. 200 [place] [phone] [facility] Referral ID Status Reason Start Date Expiration Date Visits Re quested Visits Authorized [id number] Closed 03/14/2023 03/13/2024 1 1 Encounter Details Date Type Department Care Team (Latest Contact Info) Description 05/30/2023 8:11 AM CDT - 05/30/2023 9:15 AM CDT Hospital Encounter Department of Radiology, [facility], in [place], [place] [address] [place] [address] Josette Hannon M.D. [address] [place] [phone] Transplant Renal (HCC) Discharge Disposition: Home or [...] any clubs o r organizations such as holiness groups, unions, fraternal or athletic [...] Answer Date Recorded PHQ-2 Score 0 02/27/2019 [facility] - Occupational Stress Questionnaire Answer [...] Master's degree (e.g., MA, MS, Young, MEd, DISK OPERATOR, ERNIE) 05/08/2019 Sex and Gender Information [...] documented as of this encounter Care Teams Pool Table Operator Relationship Specialty Start Date End Date Elsewhere, Pcp PCP - General Internal Medicine 05/02/22 [facility] [address] [place], [place] [address] Laboratory Medicine 07/19/20 documented as of this encounter
--- OUTSIDE RECORDS SUMMARY | 2023-11-06 10:56 | XMS_ITS | Encounter Summary ---
Author Name Unknown Organization [facility] Address [address] [place] [address] Care Team Providers Care Social Media Marketer Name Role Phone Elsewhere, Pcp Primary Care Provider Unavailabl e Encounter Details Date Type Department Care Team (Late st Contact Info) Description 06/26/2023 Orders Only Joey Gordillo [facility] Clinical Regeneration in [place], [place] [address] [place] [phone] Josette Hannon M.D. 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 or episcopal services? Never 05/12/2021 Do you [...] Answer Date Recorded PHQ-2 Score 0 02/27/2019 [facility] of Occupat ional Health - [...] Master's degree (e.g., MA, MS, Young, MEd, ADMISSIONS RECRUITER, ERNIE) 05/08/2019 Sex and Gender Information Value [...] documented as of this encounter Care Teams Social Media Marketer Relationship Specialty Start Date End Date Elsewhere, Pcp PCP - General Internal Medicine 05/02/22 [facility] [address] [place], [place] [address] Laboratory Medicine 07/19/20 documented as of this encounter
--- OUTSIDE RECORDS SUMMARY | 2023-11-06 10:56 | XMS_ITS | Encounter Summary ---
Author Name Unknown Organization [facility] Address [address] [place] [address] Care Team Providers Care Tile Setter Apprentice Name Role Phone Elsewhere, Pcp Primary Care Provider Unavailabl e Encounter Details Date Type Department Care Team (Latest Contact Info) Description 05/31/2023 1:25 PM CDT - 05/31/2023 11:59 PM CDT Hospital Encounter Department of Laboratory Medicine and Pathology, [facility] in [place], [place] [address] [place] [address] BryceHoward M.D. [address] [place] [address] Transplant Renal (HCC) Discharge Disposition: Home or [...] you attend [facility] or hoahaoism services? Never 05/12/2021 Do you belong to any clubs o r organizations such as adventist groups, unions, fraternal or athletic [...] PHQ-2 Score 0 02/27/2019 [facility] of Occupat ional Health - Occupational [...] Master's degree (e.g., MA, MS, Young, MEd, BAKER CHEF, ERNIE) 05/08/2019 Sex and Gender Information Value [...] 5.0-15.0 (Trough) ng/mL 06/20/2023 10:47 AM CDT [facility] Comment: ----ADDITIONAL INFORMATION---- Target steady-state trough [...] G Bryce M.D. LAB BLOOD NON ADD-ON [facility] [address] [place] [address] [facility] [address] [place] [address] [place] [address] documented in this encounter Visit Diagnoses Diagnosis Transplant Renal (HCC) documented in this encounter Additional Health Concerns Infection Onset Date Last Indicated Resolved Time Protective Environment 01/03/2023 01/03/2023 Assessment Noted Time PHQ-9 Depression Total Score: 0 07/17/20 17 1:08 PM CDT documented as of this encounter Care Teams Tile Setter Apprentice Relationship Specialty Start Date End Date Elsewhere, Pcp PCP - General Internal Medicine 05/02/22 [facility] [address] [place], [place] [address] Laboratory Medicine 07/19/20 documented as of this encounter
--- OUTSIDE RECORDS SUMMARY | 2023-11-06 10:57 | XMS_ITS | Encounter Summary ---
Author Name Unknown Organization [facility] Address [address] [place] [address] Care Team Providers Care Jewelry Drilling Machine Operator Name Role Phone Elsewhere, Pcp Primary Care Provider Unavailabl e Encounter Details Date Type Department Care Team (Late st Contact Info) Description 03/21/2023 Orders Only Joey christina [facility] for Transplantation and Clinical Regeneration in [place], [place] [address] [place] [phone] External, Ordering ProviderJoel Social History Tobacco Use [...] often do you attend chur ch or yarsanism services? Never 05/12/2021 Do you [...] Answer Date Recorded PHQ-2 Score 0 02/27/2019 [facility] [place] of Occupat ional Health - Occupational Stress [...] Master's degree (e.g., MA, MS, Young, MEd, CONCESSION ATTENDANT, ERNIE) 05/08/2019 Sex and Gender Information Value [...] Triglycerides, S 106 40 - 149 mg/dL [facility] EXT Cholesterol, Total, S 173 90 - 199 mg/dL [facility] EXT Calculated LDL 106(H) <100 mg/dL [facility] EXT Cholesterol, HDL, S 46 >=40 mg/dL [facility] 03/21/2023 7:45 AM CDT [facility] - 03/26/2023 5:37 PM CDT Source result document attached to Order Number [id number] ([id number]) dated 03/21/2023. External results verified in Extract by Brenda Quintana on 03/26/2023 at 05:33 PM. Ordering Provider External Joel LAB YOLANDA Chung NON ADD-ON Performing Organization Address City/[facility]/ZIP Co de Phone Number [facility] [address] [place] [address], [facility] [phone] * EXT Magnesium (03/21/2023 7:45 AM CDT) Pathologist [facility] EXT Magnesium 1.8 1.5 - 2.6 mg/dL [facility] 03/21/2023 7:45 AM CDT [facility] - 03/26/2023 5:37 PM CDT Source result document attached to Order Number [id number] ([id number]) dated 03/21/2023. External results verified in Extract by Brenda Quintana on 03/26/2023 at 05:33 PM. Ordering Provider External Joel LAB BLOO D ADD-ON Performing Organization Address City/[facility]/ZIP Co de Phone Number [facility] [address] [place] [address] * EXT Phosphorus Inorganic (03/21/2023 7:45 AM CDT) EXT Phosphorus (Inorganic), S 2.6 2.5 - 4.5 mg/dL [facility] 03/21/2023 7:45 AM CDT [facility] - 03/26/2023 5:37 PM CDT Source result document attached to Order Number [id number] ([id number]) dated 03/21/2023. External results verified in Extract by Brenda Quintana on 03/26/2023 at 05:33 PM. Ordering Provider External Joel LAB BLOO D ADD-ON Performing Organization Address City/[facility]/ZIP Co de Phone Number [facility] [address] [place] [address] * (ABNORMAL) EXT Glucose, Random (03/21/2023 7:45 AM CDT) EXT Glucose 147(H) 60 - 115 mg/dL [facility] 03/21/2023 7:45 AM CDT [facility] - 03/26/2023 5:37 PM CDT Source result document attached to Order Number [id number] ([id number]) dated 03/21/2023. External results verified in Extract by Brenda Quintana on 03/26/2023 at 05:33 PM. Ordering Provider External Joel LAB BLOO D TROPONIN [facility] [address] [place] [address] * EXT Creatinine with Estimated GFR (03/21/2023 7:45 AM CDT) EXT Creatinine 1.4 0.5 - 1.5 mg/dL [facility] EXT eGFR-Non Black/ 59 ml/min [facility] 03/21/2023 7:45 AM CDT [facility] - 03/26/2023 5:37 PM CDT Source result document attached to Order Number [id number] ([id number]) dated 03/21/2023. External results verified in Extract by Brenda Quintana on 03/26/2023 at 05:33 PM. Ordering Provider External Joel LAB BLOO D ADD-ON Performing Organization Address City/[facility]/ZIP Co de Phone Number [facility] [address] [phone] * EXT Potassium (03/21/2023 7:45 AM CDT) [facility] EXT Potassium 4.5 3.6 - 5.1 mmol/L [facility] 03/21/2023 7:45 AM CDT Narrative [facility] - 03/26/2023 5:37 PM CDT Source result document attached to Order Number [id number] ([id number]) dated 03/21/2023. External results verified in Extract by Brenda Quintana on 03/26/2023 at 05:33 PM. Ordering Provider External Joel LAB BLOO D ADD-ON Performing Organization Address [facility] Co de Phone Number [facility] [address] [phone] * (ABNORMAL) EXT Complete Blood Count, Blood (03/21/2023 7:45 AM CDT) EXT Leukocytes 3.75(L) 4.50 - 11.00 K/uL [facility] EXT Hemoglobin 13.6 13.5 - 17.5 gm/dL [facility] EXT Hematocrit 40.1 37.0 - 53.0 % [facility] EXT RDW 12.8 11.5 - 15.5 % [facility] EXT Neutrophils 2.40 1.7 - 7.0 K/uL [facility] EXT Lymphocytes 1.00 0.90 - 2.90 K/uL [facility] EXT Monocytes 0.30 0.00 - 0.90 K/UL [facility] EXT Basophils 0.00 0.00 - 0.30 K/uL [facility] EXT RBC 4.22(L) 4.30 - 5.90 m/uL [facility] EXT Platelet Count 168 140 - 440 K/uL [facility] EXT MCV 95 80 - 100 fl [facility] 03/21/2023 7:45 AM CDT Narrative [facility] - 03/26/2023 5:37 PM CDT External results verified in Extract by Brenda Quintana on 03/26/2023 at 05:33 PM. Ordering Provider External MTereso LAB BLOO D NON ADD-ON [facility] [address] [place], [place] [address] [phone] documented in this encounter Visit Diagnoses Not on filedocumented in this encounter Additional Health Concerns Infection Onset Date Last Indicated Resolved Time Protective Environment 01/03/2023 01/03/2023 Assessment Noted Time PHQ-9 Depression Total Score: 0 07/17/20 17 1:08 PM CDT documented as of this encounter Care Teams Jewelry Drilling Machine Operator Relationship Specialty Start Date End Date Elsewhere, Pcp PCP - General Internal Medicine 05/02/22 [facility] [address] [place] [address] Laboratory Medicine 07/19/20 documented as of this encounter
--- OUTSIDE RECORDS SUMMARY | 2023-11-06 10:57 | XMS_ITS | Encounter Summary ---
Author Name Unknown Organization [facility] Address [address] [place] [address] Care Team Providers Care Mailing Jogger Name Role Phone Elsewhere, Pcp Primary Care Provider Unavailabl e Reason for Referral * Outpatient (Routine) - Closed Specialty Diagnoses / Procedures Referred By Contac t Referred To Contact Diagnoses Transplant Renal (HCC) Procedures DX Chest AP or PA and Lateral 2 Views Josette Hannon M.D. [address] [place] [address] [facility] Referral ID Status Reason Start Date Expiration Date Visits Re quested Visits Authorized [id number] Closed 03/14/2023 03/13/2024 1 1 * Outpatient (Routine) - Closed Specialty Diagnoses / Procedures Referred By Samantha limon Referred To Contact Diagnoses Transplant Renal (HCC) Procedures ECG 12 Lead Josette Hannon M.D. [address] [place] [address] [facility] Referral ID Status Reason Start Date Expiration Date Visits Re quested Visits Authorized [id number] Closed 03/14/2023 03/13/2024 1 1 * Outpatient (Routine) - Closed Specialty Diagnoses / Procedures Referred By Samantha limon Referred To Contact Diagnoses Transplant Renal (HCC) Procedures Short renal clearance: Iothalamate (Renal Studies Unit) Josette Hannon M.D. [address] [place] [address] [facility] Referral ID Status Reason Start Date Expiration Date Visits Re quested Visits Authorized [id number] Closed 03/14/2023 03/13/2024 1 1 Reason for Visit * Reason Onset Date Comments Annual Exam 03/13/2023 Encounter Details Date Type Department Care Team (Latest Contact Info) Description 03/13/2023 Clinical [facility] [place], [place] [address] [place] [address] Josette Hannon M.D. [address] [place] [address] Annual Exam Social History Tobacco Use Types [...] often do you attend chur ch or sabianist services? Never 05/12/2021 Do you belong to any clubs o r organizations such as shinto groups, unions, fraternal or athletic [...] Answer Date Recorded PHQ-2 Score 0 02/27/2019 [facility] - Occupational [...] Master's degree (e.g., MA, MS, Young, MEd, SCREEN PRINTING PASTER, ERNIE) 05/08/2019 Sex and Gender Information Value [...] LAB URINE ORDERABL ES Performing Organization Address [facility] Co de Phone Number [facility] [address] [place] [address], [facility] 200 [place] [address] * ECG 12 Lead (05/30/2023 8:03 AM CDT) Ventricular Rate ECG/Min 65 BPM MUSE IN Interval 144 ms MUSE QRSD Interval 102 ms MUSE QT Interval 390 ms MUSE QTC Interval 405 ms MUSE P [place] 33 degrees MUSE R [place] 72 degrees MUSE T Wave [place] 49 degrees MUSE 05/30/2023 8:03 AM CDT [...] DNA Detect/Quant (05/30/2023 7:48 AM CDT) Pathologist [facility] BKV DNA Detect/Quant, P <22(A) Undetected IU/mL 05/30/2023 3:39 PM CDT [facility] Comment: Result in log IU/mL is <1.34. BKV DNA is detected, but level present is <22 IU/mL (<1.34 log IU/mL). This assay cannot accurately quantify BKV DNA below this level. ----ADDITIONAL INFORMATION---- The quantification range of this assay is 22 to 100,000,000 IU/mL (1.34 log to 8.00 log IU/mL). Testing was performed using the tosin BKV test ([employer] with the tosin [id number] System. Blood (Blood, Venous) 05/30/2023 7:48 AM CDT 05/30/2023 10:06 AM CDT Josette Hannon M.D. LAB MICROBIOLOGY - BLOOD ORDERABLES Performing Organization Address City/[facility]/ZIP Co de Phone Number [facility] [place] [address] [place] [address] [facility] [address] [place] [address] [place] [address] * Parathyroid Hormone (PTH) (05/30/2023 7:48 AM CDT) Pathologist [facility] Parathyroid Hormone (PTH), S 58 15 - 65 pg/mL 05/30/2023 8:47 AM CDT DT Blood (Blood, Venous) 05/30/2023 7:48 AM CDT 05/30/2023 8:10 AM CDT Josette Hannon M.D. LAB BLOOD ADD-ON [facility] [address] [place] [address], [place] [facility] [address] [place] [address] * 25-Hydroxyvitamin D2 and D3 (05/30/2023 7:48 AM CDT) Pathologist [facility] 25-Hydroxy D2 <4.0 ng/mL 05/31/2023 4:21 PM CDT [facility] 25-Hydroxy D3 43 ng/mL 05/31/2023 4:21 PM CDT [facility] 25-Hydroxy D Total 43 ng/mL 2022 4:21 PM CDT [facility] Comment: ----REFERENCE VALUE---- 25-HYDROXY D TOTAL (D2+D3) Optimum levels in the healthy population are 20-50, patients with bone disease may benefit from higher levels within this range. ----ADDITIONAL INFORMATION---- This test was developed and its performance characteristics determined by [facility] in a manner consistent with CLIA requirements. This test has not been cleared or approved by the U.S. Food and Drug Administration. Blood (Blood, Venous) 05/30/2023 7:48 AM CDT 05/30/2023 9:56 AM CDT Josette Hannon M.D. LAB BLOOD ADD-ON [facility] [place] [address] [place] [address] [facility] [address] [place] [address] [place] [address] * CMV DNA Detect / Quant, Plasma (05/30/2023 7:48 AM CDT) Pathologist [facility] CMV DNA Detect/Quant, P Undetected Undetected IU/mL 05/30/2023 6:51 PM CDT [facility] Comment: Result in log IU/mL is Undetected. ----ADDITIONAL INFORMATION---- The quantification range of this assay is 35 to 10,000,000 IU/mL (1.54 log to 7.00 log IU/mL). Testing was performed using the tosin CMV test ([employer] with the tosin [id number] System. Blood (Blood, Venous) 05/30/2023 7:48 AM CDT 05/30/2023 10:27 AM CDT Josette Hannon M.D. LAB MICROBIOLOGY - BLOOD ORDERABLES [facility] [address] [place] [address] [facility] [address] [place] [address] [place] [address] * HLA Class II SAB Antibody Screen (05/30/2023 7:48 AM CDT) Class II SAB Overall Result Negative Not Applicable 05/31/2023 10:29 AM CDT DBB8 Class II SAB Comment No DSA obsvd. 05/31/2023 10:29 AM CDT DBB8 Class II SAB >=5000 MFI NONE 05/31/2023 10:29 AM CDT DBB8 Class II SAB 1181-2215 MFI NONE 05/31/2023 10:29 AM CDT DBB8 Class II SAB 500-1999 MFI NONE 05/31/2023 10:29 AM CDT D[facility]8 SAB DRB1 Specificity NONE 05/31/2023 10:29 AM CDT DBB8 SAB [id number] Specificity NONE 05/31/2023 10:29 AM CDT DBB8 SAB DQB1 Specificity NONE 05/31/2023 10:29 AM CDT DBB8 SAB DPB1 Specificity NONE 05/31/2023 10:29 AM CDT DBB8 Comment: ----ADDITIONAL INFORMATION---- Method: Luminex Flow Cytometry CLIA: [id number] ??CLIA Finance Specialist: DON STRATTON MD,PhD Blood (Blood, Venous) 05/30/2023 7:48 AM CDT 05/30/2023 9:11 AM CDT Josette Hannon M.D. LAB HLA ORDERABLES [facility] [address] [place] [address], [facility] DBB8 [facility] [address] [place] [address] * HLA Class I SAB Antibody Screen (05/30/2023 7:48 AM CDT) Class I SAB Overall Result Positive Not Applicable 05/31/2023 10:01 AM CDT DBB8 Class I SAB Comment No DSA obsvd. 05/31/2023 10:01 AM CDT DBB8 Class I SAB >=5000 MFI NONE 05/31/2023 10:01 AM CDT DBB8 Class I SAB [id number] MFI NONE 05/31/2023 10:01 AM CDT DBB8 [...] ----ADDITIONAL INFORMATION---- Method: Luminex Flow Cytometry CLIA: [id number] ??CLIA Finance Specialist: DON STRATTON MD,PhD Blood (Blood, Venous) 05/30/2023 7:48 AM CDT 05/30/2023 9:11 AM CDT Josette Hannon M.D. LAB HLA ORDERABLES [facility] [address] [place], [place] [id number] [place] [address] DBB8 [facility] [address] [place] [address] * Jarvis/Kid 5cc Storage, Blood (05/30/2023 7:48 AM CDT) Storage, Red Collected DEFAULT 05/30/2023 7:48 AM CDT HSS Storage, ACD Collected DEFAULT 05/30/2023 7:48 AM CDT HSS Blood (Blood, Venous) 05/30/2023 7:48 AM CDT 05/30/2023 7:48 AM CDT Narrative [facility] - 05/30/2023 7:48 AM CDT Specimen Information: Specimen ID: [id number] Specimen Type: Blood Specimen Collection Start Date: 05/30/2023 ??7:48 AM Specimen Received Date: 05/30/2023 ??7:48 AM Specimen ID: [id number] Specimen Collection Start Date: 05/30/2023 ??7:48 AM Specimen Received Date: 05/30/2023 ??7:48 AM Josette Hannon M.D. LAB BLOOD ADD-ON [facility] [address] [address] * (ABNORMAL) Hemoglobin A1c (05/30/2023 7:48 AM [...] CDT Josette Hannon M.D. LAB BLOOD ADD-ON [facility] [address] [place], [place] [address] [place] [address] [place] [address] * Troponin T, 5th Generation (05/30/2023 7:48 AM CDT) Troponin T, 5th gen 15 <=15 ng/L 05/30/2023 8:38 AM CDT DTL Blood (Blood, Venous) 05/30/2023 7:48 AM CDT 05/30/2023 8:10 AM CDT Josette Hannon M.D. LAB BLOOD ADD-ON [facility] - [facility] [address] [place] [address], [facility] [address] [place] [address] * Lipid Panel (05/30/2023 7:48 AM CDT) [...] CDT Josette Hannon M.D. LAB BLOOD ADD-ON [facility] [address] [place] [address] * Magnesium (05/30/2023 7:48 AM CDT) Pathologist [facility] Magnesium, S 1.8 1.7 - 2.3 mg/dL 05/30/2023 8:47 AM CDT DT Blood (Blood, Venous) 05/30/2023 7:48 AM CDT 05/30/2023 8:10 AM CDT Josette Hannon M.D. LAB BLOOD ADD-ON Performing Organization Address City/[facility] Co de Phone Number [facility] [address] [place], [place] [address] [place] [address] 200 [place] [address] * Phosphorus Inorganic (05/30/2023 7:48 AM CDT) Pathologist [facility] Phosphorus (Inorganic), S 2.7 2.5 - 4.5 mg/dL 05/30/2023 8:47 AM CDT DT Blood (Blood, Venous) 05/30/2023 7:48 AM CDT 05/30/2023 8:10 AM CDT Josette Hannon M.D. LAB BLOOD ADD-ON Performing Organization Address City/[facility]/ZIP Co de Phone Number [facility] [address] [place] [address] * (ABNORMAL) Comprehensive Metabolic Panel (05/30/2023 7:48 [...] CDT Josette Hannon M.D. LAB BLOOD ADD-ON [facility] [address] 200 [place] [address] * APTT (Activated Partial Thromboplastin Time) (05/30/2023 7:48 AM CDT) Activated Partial Thrombopl Time, P 26 25 - 37 sec 05/30/2023 8:18 AM CDT DTL Blood (Blood, Venous) 05/30/2023 7:48 AM CDT 05/30/2023 7:56 AM CDT Josette Hannon M.D. LAB BLOOD ADD-ON Performing Organization Address [facility] Co de Phone Number [facility] [address] [place] [address] * Prothrombin Time (PT) (05/30/2023 7:48 AM [...] M.D. LAB BLOOD ADD-ON Performing Organization Address City/[facility]/ZIP Co de Phone Number [facility] [address] DTL [facility] [address] [place] [address] * (ABNORMAL) CBC with Differential, Blood (05/30/2023 [...] CDT Josette Hannon M.D. LAB BLOOD ADD-ON [facility] [address] [place] [address], [facility] [address] [place] [address] [address] * Bacterial Culture, Aerobic + Susceptibility, Urine (05/30/2023 7:41 AM CDT) Urine Culture No growth after 1 day of incubation. 06/01/2023 7:58 AM CDT DTL Urine (Urine, Midstream) 05/30/2023 7:41 AM CDT 05/30/2023 8:59 PM CDT Comment:Specimen Source Site : Urine Josette Hannon M.D. LAB MICROBIOLOGY - GENERAL ORDERABLES [facility] [address] [place], [place] [address] [address] [place] [address] * Urinalysis with Microscopic: Urine, Midstream (05/30/2023 [...] LAB URINE ORDERABL ES Performing Organization Address [facility] Co de Phone Number [facility] [address] [place] [address], [address] [address] * Albumin, 24 hour Collection, Urine (05/16/2023 7:00 AM CDT) Albumin, 24 Hr, U <18 <30 mg/24 h 05/18/2023 12:11 PM CDT DTL Comment: ----ADDITIONAL INFORMATION---- This test has been modified from the c software engineer's instructions. Its performance characteristics were determined by [facility] in a manner consistent with CLIA requirements. [...] LAB URINE ORDERABL ES Performing Organization Address [facility] Co de Phone Number [facility] [address] [place] [address], [facility] [address] [place] [address] * Protein, Total, 24 hour, Urine (05/16/2023 7:00 AM CDT) Total Protein, 24 HR, U <144 <229 mg/24 h 05/18/2023 10:27 AM CDT DTL Collection Duration 24 h 05/18/2023 9:20 AM CDT DTL Urine Volume 3600 mL 05/18/2023 9:20 AM CDT DTL Urine (Urine, 24 Hours) 05/16/2023 7:00 AM CDT 05/18/2023 9:20 AM CDT Josette Hannon M.D. LAB URINE ORDERABL ES [facility] [address] [place] [address], [facility] [address] [place] [address] documented in this encounter Visit Diagnoses Diagnosis Transplant Renal (HCC)- Primary Transplant Renal (HCC) documented in this encounter Additional Health Concerns Infection Onset Date Last Indicated Resolved Time Protective Environment 01/03/2023 01/03/2023 Assessment Noted Time PHQ-9 Depression Total Score: 0 07/17/20 17 1:08 PM CDT documented as of this encounter Care Teams Mailing Jogger Relationship Specialty Start Date End Date Elsewhere, Pcp PCP - General Internal Medicine 05/02/22 [facility] [address] [place], [place] [address] Laboratory Medicine 07/19/20 documented as of this encounter
--- OUTSIDE RECORDS SUMMARY | 2023-11-06 10:57 | XMS_ITS | Encounter Summary ---
Author Name Unknown Organization [facility] Address [address] [place] [address] Care Team Providers Care Interface Designer Name Role Phone Elsewhere, Pcp Primary Care Provider Unavailabl e Encounter Details Date Type Department Care Team (Late st Contact Info) Description 03/01/2023 Orders Only Joey christina [facility] Trans[facility] Clinical Regeneration in [place], [place] [address] [place] [phone] BryceHoward M.D. [address] [place] [phone] Transplant Renal (HCC) Social History Tobacco Use [...] How often do you attend chur or cheondoism services? Never 05/12/2021 Do you belong to any clubs o r organizations such as anglican groups, unions, fraternal or athletic [...] Master's degree (e.g., MA, MS, Young, MEd, TOOL DESIGN CHECKER, ERNIE) 05/08/2019 Sex and Gender Information [...] 5.0-15.0 (Trough) ng/mL 03/22/2023 10:32 AM CDT [facility] Comment: ----ADDITIONAL INFORMATION---- Target steady-state trough concentrations vary depending on the type of transplant, concomitant immunosuppression, clinical/institutional protocols, and time post-transplant. Results should be interpreted in conjunction with this clinical information and any physical signs/symptoms of rejection/toxicity. Testing performed by Liquid Chromatography-Tandem Mass Spectrometry (LC-MS/MS). This test was developed and its performance characteristics determined by [facility] in a manner consistent with CLIA requirements. This test has not been cleared or approved by the U.S. Food and Drug Administration. Blood (Blood, Venous) 03/21/2023 7:45 AM CDT 03/22/2023 7:18 AM CDT Howard Wu M.D. LAB BLOOD NON ADD-ON [facility] [address] [place] [address] [facility] [address] [place] [address] [place] [address] documented in this encounter Visit Diagnoses Diagnosis Transplant Renal (HCC) documented in this encounter Additional Health Concerns Infection Onset Date Last Indicated Resolved Time Protective Environment 01/03/2023 01/03/2023 Assessment Noted Time PHQ-9 Depression Total Score: 0 07/17/20 17 1:08 PM CDT documented as of this encounter Care Teams Interface Designer Relationship Specialty Start Date End Date Elsewhere, Pcp PCP - General Internal Medicine 05/02/22 [facility] [address] [place], [place] [address] Laboratory Medicine 07/19/20 documented as of this encounter
--- OUTSIDE RECORDS SUMMARY | 2023-11-06 10:57 | XMS_ITS | Encounter Summary ---
Author Name Unknown Organization [facility] Address [address] [place] [address] Care Team Providers Care Funeral Director Name Role Phone Elsewhere, Pcp Primary Care Provider Unavailabl e Reason for Visit * Reason Comments Med Refill Encounter Details Date Type Department Care Team (Late st Contact Info) Description 05/15/2023 Refill Joey Ferrer [facility] for Transplantation and Clinical Regeneration in [place], [place] [address] [place] [phone] Ruddy Craig M.D. [address] [place] [phone] Med Refill Social History Tobacco Use Types [...] any clubs o r organizations such as episcopal groups, unions, fraternal or athletic [...] Master's degree (e.g., MA, MS, Young, MEd, CONSTRUCTION TECHNICIAN, ERNIE) 05/08/2019 Sex and Gender Information [...] documented as of this encounter Care Teams Funeral Director Relationship Specialty Start Date End Date Elsewhere, Pcp PCP - General Internal Medicine 05/02/22 [facility] [address] [place], [place] [address] Laboratory Medicine 07/19/20 documented as of this encounter
--- OUTSIDE RECORDS SUMMARY | 2023-11-06 10:57 | XMS_ITS | Encounter Summary ---
Author Name Unknown Organization [facility] Address [address] [place] [address] Care Team Providers Care Taffy Puller Name Role Phone Elsewhere, Pcp Primary Care Provider Unavailabl e Reason for Visit * Reason Comments Med Refill Encounter Details Date Type Department Care Team (Late st Contact Info) Description 05/15/2023 Refill Division of Endocrinology in [place], [place] [address] [place] [phone] Deejay Cordoba M.D. [address] [place] [phone] Med Refill Social History Tobacco Use Types [...] How often do you attend chur or worship services? Never 05/12/2021 Do you belong to [...] 0 02/27/2019 [facility] - Occupational Stress Questionnaire Answer Date [...] Master's degree (e.g., MA, MS, Young, MEd, PALS SPECIALIST, ERNIE) 05/08/2019 Sex and Gender Information [...] documented as of this encounter Care Teams Taffy Puller Relationship Specialty Start Date End Date Elsewhere, Pcp PCP - General Internal Medicine 05/02/22 [facility] [address] [place], [place] [address] Laboratory Medicine 07/19/20 documented as of this encounter
--- OUTSIDE RECORDS SUMMARY | 2023-11-06 10:57 | XMS_ITS | Encounter Summary ---
Author Name Unknown Organization [facility] Address [address] [place] [address] Care Team Providers Care Elevator Troubleshooter Name Role Phone Elsewhere, Pcp Primary Care Provider Unavailabl e Encounter Details Date Type Department Care Team (Latest Contact Info) Description 04/19/2023 7:02 AM CDT - 04/19/2023 11:59 PM CDT Hospital Encounter Department of Laboratory Medicine and Pathology, [facility] in [place], [place] [address] [place] [address] Josette Hannon M.D. [address] [place] [address] Transplant Renal (HCC) Discharge Disposition: Home or [...] any clubs o r organizations such as evangelical groups, unions, fraternal or athletic [...] Answer Date Recorded PHQ-2 Score 0 02/27/2019 [facility] - [...] or slept in a snf (including now)? No 05/12/2021 Nutrition Answer Date [...] Master's degree (e.g., MA, MS, Young, MEd, SHEET TAKER, ENRIE) 05/08/2019 Sex and Gender Information Value Date [...] This test has been modified from the indexer's instructions. Its performance characteristics were determined by [facility] in a manner consistent with CLIA [...] LAB URINE ORDERABL ES Performing Organization Address City/[facility] Co de Phone Number [facility] 200 [place] [address], [facility] [address] [address] * Protein, Total, 24 hour, Urine (05/16/2023 [...] LAB URINE ORDERABL ES Performing Organization Address City/[facility]/ZIP Co de Phone Number [facility] 200 [place] [address], [facility] [address] [address] documented in this encounter Visit Diagnoses Diagnosis Transplant Renal (HCC) documented in this encounter Additional Health Concerns Infection Onset Date Last Indicated Resolved Time Protective Environment 01/03/2023 01/03/2023 Assessment Noted Time PHQ-9 Depression Total Score: 0 07/17/20 17 1:08 PM CDT documented as of this encounter Care Teams Elevator Troubleshooter Relationship Specialty Start Date End Date Elsewhere, Pcp PCP - General Internal Medicine 05/02/22 [facility] [address] [place], [place] [address] Laboratory Medicine 07/19/20 documented as of this encounter
--- OUTSIDE RECORDS SUMMARY | 2023-11-06 10:57 | XMS_ITS | Encounter Summary ---
Author Name Unknown Organization [facility] Address [address] [place] [address] Care Team Providers Care High Worker Name Role Phone Elsewhere, Pcp Primary Care Provider Unavailabl e Reason for Referral * Transplant (Routine) - Closed Specialty Diagnoses / Procedures Referred By Samantha limon Referred To Contact Transplant Diagnoses Josette Aggarwal M.D. [address] [place] [address] [facility] Referral ID Status Reason Start Date Expiration Date Visits Re quested Visits Authorized [id number] Closed 05/30/2023 05/29/20[address] Churchill only Reason for Visit * Reason Comments Kidney Follow-up 12 year annual * Outpatient (Routine) - Closed Specialty Diagnoses / Procedures Referred By Samantha limon Referred To Contact Transplant Diagnoses Unspecified kidney failure Procedures post [facility] Referral ID Status Reason Start Date Expiration Date Visits Re quested Visits Authorized [id number] Closed 03/13/2023 03/12/2024 1 1 Encounter Details Date Type Department Care Team (Latest Contact Info) Description 05/30/2023 2:00 PM CDT Office Visit Joey [facility] Transplantation [facility] Clinical Regeneration in [place], [place] [address] [place] [address] Josette Hannon M.D. [address] [place] [address] Hyperglycemia (Primary Dx) Social History Tobacco Use [...] 05/12/2021 How often do you attend chur [employer] or muslim services? 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 REVIEW OF SYSTEMS: A comprehensive review of [...] documented as of this encounter Care Teams High Worker Relationship Specialty Start Date End Date Elsewhere, Pcp PCP - General Internal Medicine 05/02/22 [facility] [address] [place], [place] [address] Laboratory Medicine 07/19/20 documented as of this encounter
--- OUTSIDE RECORDS SUMMARY | 2023-11-06 10:57 | XMS_ITS | Encounter Summary ---
Author Name Unknown Organization [facility] Address [address] [place] [address] Care Team Providers Care Cd Reactor Operator Name Role Phone Elsewhere, Pcp Primary Care Provider Unavailabl e Reason for Visit * Reason Onset Date Comments Tacrolimus Adjustment Protocol 03/22/2023 Encounter Details Date Type Department Care Team (Latest Contact Info) Description 03/22/2023 Clinical Communication [facility] in [place], [place] [address] [place] [address] Eleni Henley R.N., C.C.T.C. [address] [place] [address] Tacrolimus Adjustment Protocol Social History Tobacco Use [...] How often do you attend [facility] or druze services? Never 05/12/2021 Do you belong to [...] 0 02/27/2019 [facility] - Occupational Stress Questionnaire Answer Date [...] Master's degree (e.g., MA, MS, Young, MEd, AUTOCUTTER, ERNIE) 05/08/2019 Sex and Gender Information Value [...] documented as of this encounter Care Teams Cd Reactor Operator Relationship Specialty Start Date End Date Elsewhere, Pcp PCP - General Internal Medicine 05/02/22 [facility] [address] [place], [place] [address] Laboratory Medicine 07/19/20 documented as of this encounter
--- OUTSIDE RECORDS SUMMARY | 2023-11-06 10:57 | XMS_ITS | Encounter Summary ---
Author Name Unknown Organization [facility] Address [address] [place] [address] Care Team Providers Care Agronomy Instructor Name Role Phone Elsewhere, Pcp Primary Care Provider Unavailabl e Encounter Details Date Type Department Care Team (Latest Contact Info) Description 03/02/2023 10:50 AM CDT - 03/02/2023 11:59 PM CDT Hospital Encounter Department of Laboratory Medicine and Pathology, [facility] in [place], [place] [address] [place] [address] BryceHoward M.D. [address] [place] [address] Transplant Renal (HCC) Discharge Disposition: Home or [...] 05/12/2021 How often do you attend [facility] or shinto services? Never 05/12/2021 Do you belong to any clubs o r organizations such as confucianism groups, unions, fraternal or athletic [...] Master's degree (e.g., MA, MS, Young, MEd, WILD LIFE MANAGER, ERNIE) 05/08/2019 Sex and Gender Information [...] 5.0-15.0 (Trough) ng/mL 03/22/2023 10:32 AM CDT [facility] Comment: ----ADDITIONAL INFORMATION---- Target steady-state trough concentrations vary depending on the type of transplant, concomitant immunosuppression, clinical/institutional protocols, and time post-transplant. Results should be interpreted in conjunction with this clinical information and any physical signs/symptoms of rejection/toxicity. Testing performed by Liquid Chromatography-Tandem Mass Spectrometry (LC-MS/MS). This test was developed and its performance characteristics determined by [facility] in a manner consistent with CLIA requirements. This test has not been cleared or approved by the U.S. Food and Drug Administration. Blood (Blood, Venous) 03/21/2023 7:45 AM CDT 03/22/2023 7:18 AM CDT Howard Wu M.D. LAB BLOOD NON ADD-ON [facility] [address] [place] [address] [facility] [address] [place] [address] [place] [address] documented in this encounter Visit Diagnoses Diagnosis Transplant Renal (HCC) documented in this encounter Additional Health Concerns Infection Onset Date Last Indicated Resolved Time Protective Environment 01/03/2023 01/03/2023 Assessment Noted Time PHQ-9 Depression Total Score: 0 07/17/20 17 1:08 PM CDT documented as of this encounter Care Teams Agronomy Instructor Relationship Specialty Start Date End Date Elsewhere, Pcp PCP - General Internal Medicine 05/02/22 [facility] [address] [place], [place] [address] Laboratory Medicine 07/19/20 documented as of this encounter
--- OUTSIDE RECORDS SUMMARY | 2023-11-06 10:57 | XMS_ITS | Encounter Summary ---
Author Name Unknown Organization [facility] Address [address] [place] [address] Care Team Providers Care Coal Washer Tender Name Role Phone Elsewhere, Pcp Primary Care Provider Unavailabl e Encounter Details Date Type Department Care Team (Late st Contact Info) Description 05/11/2023 Documentation Joey christina [facility] for Transplantation and Clinical Regeneration in [place], [place] [address] [place] [phone] Petty Ma Social History Tobacco Use Types [...] often do you attend chur ch or buddhism services? Never 05/12/2021 Do you belong to [...] degree (e.g., MA, MS, Young, MEd, HAT CONDITIONER, ERNIE) 05/08/2019 Sex and Gender Information Value [...] documented as of this encounter Care Teams Coal Washer Tender Relationship Specialty Start Date End Date Elsewhere, Pcp PCP - General Internal Medicine 05/02/22 [facility] [address] [place], [place] [address] Laboratory Medicine 07/19/20 documented as of this encounter
--- OUTSIDE RECORDS SUMMARY | 2023-11-06 10:57 | XMS_ITS | Encounter Summary ---
Author Name Unknown Organization [facility] Address [address] [place] [address] Care Team Providers Care Sr Solutions Consultant Name Role Phone Elsewhere, Pcp Primary Care Provider Unavailabl e Reason for Visit * Reason Onset Date Comments Tacrolimus Adjustment Protocol 01/03/2023 Encounter Details Date Type Department Care Team (Latest Contact Info) Description 01/03/2023 Clinical Communication [facility] in [place], [place] [address] [place] [address] Regla Perez, RKgN., CCTN Tacrolimus Adjustment Protocol [...] How often do you attend chur or quaker services? Never 05/12/2021 Do you belong to [...] 0 02/27/2019 [facility] of Occupat ional [facility] - Occupational Stress Questionnaire Answer Date [...] Master's degree (e.g., MA, MS, Young, MEd, COAL INSPECTOR, ERNIE) 05/08/2019 Sex and Gender Information [...] documented as of this encounter Care Teams Sr Solutions Consultant Relationship Specialty Start Date End Date Elsewhere, Pcp PCP - General Internal Medicine 05/02/22 [facility] [address] [place], [place] [address] Laboratory Medicine 07/19/20 documented as of this encounter
--- OUTSIDE RECORDS SUMMARY | 2023-11-06 10:57 | XMS_ITS | Encounter Summary ---
Author Name Unknown Organization [facility] Address [address] [place] [address] Care Team Providers Care Livestock Slaughterer Name Role Phone Elsewhere, Pcp Primary Care Provider Unavailabl e Reason for Referral * Outpatient (Routine) - Closed Specialty Diagnoses / Procedures Referred By Samantha limon Referred To Contact Diagnoses Transplant Renal (HCC) Procedures Short renal clearance: Iothalamate (Renal Studies Unit) Josette Hannon M.D. [address] [place] [address] [facility] Referral ID Status Reason Start Date Expiration Date Visits Re quested Visits Authorized [id number] Closed 03/14/2023 03/13/2024 1 1 Reason for Visit * Outpatient (Routine) - Closed Specialty Diagnoses / Procedures Referred By Samantha limon Referred To Contact Diagnoses Transplant Renal (HCC) Procedures Short renal clearance: Iothalamate (Renal Studies Unit) Josette Hannon M.D. [address] [place] [address] [facility] Referral ID Status Reason Start Date Expiration Date Visits Re quested Visits Authorized [id number] Closed 03/14/2023 03/13/2024 1 1 Encounter Details Date Type Department Care Team (Latest Contact Info) Description 05/30/2023 9:16 AM CDT - 05/30/2023 11:59 PM CDT Hospital Encounter Department of Laboratory Medicine and Pathology, [facility] in [place], [place] [address] [place] [address] Josette Hannon M.D. [address] [place] [address] Transplant Renal (HCC) Discharge Disposition: Home or [...] any clubs o r organizations such as islam groups, unions, fraternal or athletic [...] Answer Date Recorded PHQ-2 Score 0 02/27/2019 [facility] of Occupat ional Health - Occupational Stress [...] Master's degree (e.g., MA, MS, Young, MEd, DRAFTER ASSISTANT, ERNIE) 05/08/2019 Sex and Gender Information [...] its performance characteristics determined by [facility] in a manner consistent with CLIA requirements. This test has not been cleared or approved by the U.S. Food and Drug Administration. Blood (Blood, Venous) 05/30/2023 9:29 AM CDT 05/30/2023 12:01 PM CDT Narrative [facility] - 06/05/2023 7:43 AM CDT Specimen Information: Specimen ID: [id number] Specimen Collection Start Date: 05/30/2023 ??9:29 AM Specimen Received Date: 05/30/2023 12:01 PM Specimen ID: [id number] Specimen Collection Start Date: 05/30/2023 10:32 AM Specimen Received Date: 05/30/2023 12:01 PM Specimen ID: [id number] Specimen Collection Start Date: 05/30/2023 11:17 AM Specimen Received Date: 05/30/2023 12:01 PM Specimen ID: [id number] Specimen Collection Start Date: 05/30/2023 10:35 AM Specimen Received Date: 05/30/2023 12:00 PM Specimen ID: [id number] Specimen Collection Start Date: 05/30/2023 11:21 AM Specimen Received Date: 05/30/2023 12:01 PM Josette Hannon M.D. LAB BLOOD NON ADD- ON [facility] [address] [place] [address], [facility] [address] [place] [address] 200 [place] [address] documented in this encounter Visit Diagnoses Diagnosis [...] documented as of this encounter Care Teams Livestock Slaughterer Relationship Specialty Start Date End Date Elsewhere, Pcp PCP - General Internal Medicine 05/02/22 [facility] [address] [place], [place] [address] Laboratory Medicine 07/19/20 documented as of this encounter
--- OUTSIDE RECORDS SUMMARY | 2023-11-06 10:58 | XMS_ITS | Encounter Summary ---
Author Name Unknown Organization [facility] Address [address] [place] [address] Care Team Providers Care Swimming Pool Servicer Name Role Phone Elsewhere, Pcp Primary Care Provider Unavailabl e Reason for Visit * Reason Comments Med Refill Encounter Details Date Type Department Care Team (Late st Contact Info) Description 12/12/2022 Refill Joey Ferrer [facility] for Transplantation and Clinical Regeneration in [place], [place] [address] [place] [phone] Nasra Montalvo APRN, C.N.P., D.N.P. [address] [place] [phone] Med Refill Social History Tobacco Use Types [...] week 05/12/2021 How often do you attend [facility] or baptist services? Never 05/12/2021 Do you belong to [...] Answer Date Recorded PHQ-2 Score 0 02/27/2019 [facility] of Occupat ional Health - Occupational Stress [...] Master's degree (e.g., MA, MS, Young, MEd, MAINTENANCE COORDINATOR, ERNIE) 05/08/2019 Sex and Gender Information Value [...] documented as of this encounter Care Teams Swimming Pool Servicer Relationship Specialty Start Date End Date Elsewhere, Pcp PCP - General Internal Medicine 05/02/22 [facility] [address] [place], [place] [address] Laboratory Medicine 07/19/20 documented as of this encounter
--- OUTSIDE RECORDS SUMMARY | 2023-11-06 10:58 | XMS_ITS ---
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 Transplant External Managing Senior Electrical Design Engineer [phone] [email or web address] Post-Transplant Pre-Transplant Admitted: 05/22/2011 Referred: 12/12/2007 Transplanted: 05/22/2011 Evaluation began: 1 Discharged: 05/25/2011 Center waitlisted: 1
--- OUTSIDE RECORDS SUMMARY | 2023-11-06 10:58 | XMS_ITS | Encounter Summary ---
Author Name Unknown Organization [facility] Address [address] [place] [address] Care Team Providers Care Disbursing Officer Name Role Phone Elsewhere, Pcp Primary Care Provider Unavailabl e Encounter Details Date Type Department Care Team (Latest Contact Info) Description 11/23/2022 4:00 PM HIGH SCHOOL LEARNING SUPPORT TEACHER - 11/23/2022 11:59 PM HIGH SCHOOL LEARNING SUPPORT TEACHER Hospital Encounter Department of Laboratory Medicine and Pathology, [facility] in [place], [place] [address] [place] [address] BryceHoward M.D. [address] [place] [address] Transplant Renal (HCC) Discharge Disposition: Home or [...] Answer Date Recorded PHQ-2 Score 0 02/27/2019 [facility] of Occupat ional Health - Occupational [...] Master's degree (e.g., MA, MS, Young, MEd, ENVIRONMENTAL ISSUES INSTRUCTOR, ERNIE) 05/08/2019 Sex and Gender Information Value [...] developed and its performance characteristics determined by [facility] in a manner consistent with CLIA requirements. This test has not been cleared or approved by the U.S. Food and Drug Administration. Blood (Blood, Venous) 01/01/2023 7:40 AM CDT 01/02/2023 7:11 AM CDT Howard Wu M.D. LAB BLOOD NON ADD-ON [facility] [address] [place] [address] [facility] [address] [place] [address] documented in this encounter Visit Diagnoses Diagnosis Transplant Renal (HCC) documented in this encounter Additional Health Concerns Assessment Noted Time PHQ-9 Depression Total Score: 0 07/17/20 17 1:08 PM CDT documented as of this encounter Care Teams Disbursing Officer Relationship Specialty Start Date End Date Elsewhere, Pcp PCP - General Internal Medicine 05/02/22 [facility] [address] [place], [place] [address] Laboratory Medicine 07/19/20 documented as of this encounter
--- OUTSIDE RECORDS SUMMARY | 2023-11-06 10:58 | XMS_ITS | Encounter Summary ---
Author Name Unknown Organization [facility] Address [address] [place] [address] Care Team Providers Care Reconciliation Accountant Name Role Phone Elsewhere, Pcp Primary Care Provider Unavailabl e Encounter Details Date Type Department Care Team (Late st Contact Info) Description 11/14/2022 Orders Only Joey christina [facility] for Transplantation and Clinical Regeneration in [place], [place] [address] [place] [phone] External, Ordering ProviderJoel Social History Tobacco Use [...] any clubs o r organizations such as yarsani groups, unions, fraternal or athletic [...] Answer Date Recorded PHQ-2 Score 0 02/27/2019 [facility] [place] of Occupat ional Health - Occupational [...] Master's degree (e.g., MA, MS, Young, MEd, PRINCIPAL TRAINER, ERNIE) 05/08/2019 Sex and Gender Information [...] ALBUMIN, RANDOM, U Routine 11/14/2022 7:53 AM IMAGING ASSISTANT EXTM POTASSIUM, S/P Routine 11/14/2022 7 :53 AM IMAGING ASSISTANT EXTM PHOSPHORUS (INORGANIC), S Routine 11/14/2022 7:53 AM IMAGING ASSISTANT EXTM MAGNESIUM, S Routine 11/14/2022 7:5 3 AM IMAGING ASSISTANT EXTM GLUCOSE, RANDOM, S/P Routine 11/14/2022 7:53 AM IMAGING ASSISTANT EXTM CREATININE WITH EGFR, S/P Routine 11/14/2022 7:53 AM IMAGING ASSISTANT EXTP COMPLETE BLOOD COUNT, BLOOD Routine 11/14/2022 7:53 AM IMAGING ASSISTANT documented in this encounter Results * EXT Albumin, Random, Urine (11/14/2022 7:53 AM IMAGING ASSISTANT) EXT Creatinine, Urine 47.6 mg/dL [facility] EXT Microalbumin-R andom, U <1 mg/dL [facility] EXT Albumin/Creati nine Ratio 20 0 - 30 Ratio [facility] 11/14/2022 7:53 AM IMAGING ASSISTANT [facility] - 11/17/2022 9:26 AM IMAGING ASSISTANT Source result document attached to Order Number [id number] ([id number]) dated 11/14/2022. External results verified in Extract by Lori Alonso on 11/17/2022 at 09:24 AM. Ordering Provider External Joel LAB URIN E ORDERABLES Performing Organization Address [facility]/ZIP Co de Phone Number [facility] [address] [place] [address] * EXT Magnesium (11/14/2022 7:53 AM IMAGING ASSISTANT) Pathologist [facility] EXT Magnesium 2.1 1.5 - 2.5 mg/dl [facility] 11/14/2022 7:53 AM IMAGING ASSISTANT [facility] - 11/17/2022 9:26 AM IMAGING ASSISTANT Source result document attached to Order Number [id number] ([id number]) dated 11/14/2022. External results verified in Extract by Lori Alonso on 11/17/2022 at 09:19 AM. Ordering Provider External Joel LAB BLOO D ADD-ON Performing Organization Address [facility]/ZIP Co de Phone Number [facility] [address] [place] [address] * EXT Phosphorus Inorganic (11/14/2022 7:53 AM IMAGING ASSISTANT) Pathologist [facility] EXT Phosphorus (Inorganic), S 2.9 2.5 - 4.5 mg/dL [facility] 11/14/2022 7:53 AM IMAGING ASSISTANT [facility] - 11/17/2022 9:26 AM IMAGING ASSISTANT Source result document attached to Order Number [id number] ([id number]) dated 11/14/2022. External results verified in Extract by Lori Alonso on 11/17/2022 at 09:19 AM. Ordering Provider External Joel LAB BLOO D ADD-ON [facility] [address] [phone] * (ABNORMAL) EXT Glucose, Random (11/14/2022 7:53 AM IMAGING ASSISTANT) EXT Glucose 132(H) 60 - 115 mg/dL [facility] 11/14/2022 7:53 AM IMAGING ASSISTANT [facility] - 11/17/2022 9:26 AM IMAGING ASSISTANT Source result document attached to Order Number [id number] ([id number]) dated 11/14/2022. External results verified in Extract by Lori Alonso on 11/17/2022 at 09:19 AM. Ordering Provider Nicole Chung TROPONIN Performing Organization Address [facility] Co de Phone Number [facility] [address] [place] [address], [facility] [phone] * EXT Creatinine with Estimated GFR (11/14/2022 7:53 AM IMAGING ASSISTANT) EXT Creatinine 1.3 0.5 - 1.5 mg/dL [facility] EXT Estimated GFR (eGFR) 64 ml/min [facility] 11/14/2022 7:53 AM IMAGING ASSISTANT [facility] - 11/17/2022 9:26 AM IMAGING ASSISTANT Source result document attached to Order Number [id number] ([id number]) dated 11/14/2022. External results verified in Extract by Lori Alonso on 11/17/2022 at 09:19 AM. Ordering Provider External Joel LAB BLOO D ADD-ON Performing Organization Address [facility]/ZIP Co de Phone Number [facility] [address] [phone] * EXT Potassium (11/14/2022 7:53 AM IMAGING ASSISTANT) [facility] EXT Potassium 5.0 3.6 - 5.1 mmol/L [facility] 11/14/2022 7:53 AM IMAGING ASSISTANT Narrative [facility] - 11/17/2022 9:26 AM IMAGING ASSISTANT Source result document attached to Order Number [id number] ([id number]) dated 11/14/2022. External results verified in Extract by Lori Alonso on 11/17/2022 at 09:19 AM. Ordering Provider External Joel LAB HUDSONO Sheldon ADD-ON Performing Organization Address [facility]/ZIP Co de Phone Number [facility] [address] [phone] * (ABNORMAL) EXT Complete Blood Count, Blood (11/14/2022 7:53 AM IMAGING ASSISTANT) [facility] EXT Leukocytes 4.31(L) 4.50 - 11.00 K/uL [facility] EXT RBC 4.43 4.30 - 5.90 m/uL [facility] EXT Hemoglobin 14.5 13.5 - 17.5 gm/dL [facility] EXT MCV 95 80 - 100 fL [facility] EXT Platelet Count 189 140 - 440 K/uL [facility] EXT Neutrophils 2.90 1.7 - 7.0 K/uL [facility] EXT Lymphocytes 1.00 0.90 - 2.90 K/uL [facility] EXT Monocytes 0.40 0.00 - 0.90 K/UL [facility] EXT Eosinophils 0.00 0.00 - 0.50 K/uL [facility] EXT Basophils 0.00 0.00 - 0.30 K/uL [facility] 11/14/2022 7:53 AM IMAGING ASSISTANT Narrative [facility] - 11/17/2022 9:26 AM IMAGING ASSISTANT External results verified in Extract by Lori Alonso on 11/17/2022 at 09:19 AM. Ordering Provider External M.DKg LAB BLOO D NON ADD-ON [facility] [address] [place] [address] [phone] documented in this encounter Visit Diagnoses Not on filedocumented in this encounter Additional Health Concerns Assessment Noted Time PHQ-9 Depression Total Score: 0 07/17/20 17 1:08 PM CDT documented as of this encounter Care Teams Reconciliation Accountant Relationship Specialty Start Date End Date Elsewhere, Pcp PCP - General Internal Medicine 05/02/22 [facility] [address] [place], [place] [address] Laboratory Medicine 07/19/20 documented as of this encounter
--- OUTSIDE RECORDS SUMMARY | 2023-11-06 10:58 | XMS_ITS | Encounter Summary ---
Author Name Unknown Organization [facility] Address [address] [place] [address] Care Team Providers Care Cold Working Inspector Name Role Phone Elsewhere, Pcp Primary Care Provider Unavailabl e Reason for Visit * Reason Onset Date Comments Txp Tacrolimus Adjustment Protocol - Liver 11/17 Encounter Details Date Type Department Care Team (Latest Contact Info) Description 11/17/2022 Clinical Communication [facility] [place], [place] [address] [place] [phone] Lionel Shepherd RAntwan [address] [place] [address] Txp Tacrolimus Adjustment Protocol - Liver Social [...] 05/12/2021 How often do you attend [facility] or congregational services? Never 05/12/2021 Do [...] or slept in a penitentiary (including now)? No 05/12/2021 Nutrition Answer Date [...] Master's degree (e.g., MA, MS, Young, MEd, SIGNING TEACHER, ERNIE) 05/08/2019 Sex and Gender Information [...] stable trends, continue monitoring every 3 months BURSEMENT SPECIALIST documented in this encounter Plan of Treatment Not on file documented as of this encounter Visit Diagnoses Not on filedocumented in this encounter Additional Health Concerns Assessment Noted Time PHQ-9 Depression Total Score: 0 07/17/20 17 1:08 PM CDT documented as of this encounter Care Teams Cold Working Inspector Relationship Specialty Start Date End Date Elsewhere, Pcp PCP - General Internal Medicine 05/02/22 [facility] [address] [place], [place] [address] Laboratory Medicine 07/19/20 documented as of this encounter
--- OUTSIDE RECORDS SUMMARY | 2023-11-06 10:58 | XMS_ITS | Encounter Summary ---
Author Name Unknown Organization [facility] Address [address] [place] [address] Care Team Providers Care Senior Director Insight Name Role Phone Elsewhere, Pcp Primary Care Provider Unavailabl e Encounter Details Date Type Department Care Team (Late st Contact Info) Description 01/01/2023 Orders Only Joey christina [facility] in [place], [place] [address] [place] [phone] External, Ordering ProviderJoel Social History Tobacco Use [...] any clubs o r organizations such as baptist groups, unions, fraternal or athletic [...] Answer Date Recorded PHQ-2 Score 0 02/27/2019 [facility] [place] of Occupat ional Health - Occupational [...] Master's degree (e.g., MA, MS, Young, MEd, HEAD BANQUET WAITER/WAITRESS, ERNIE) 05/08/2019 Sex and Gender Information Value [...] Albumin, Random, Urine (01/01/2023 7:40 AM CDT) [facility] EXT Creatinine, Urine 57.7 mg/dL [facility] EXT Microalbumin-R andom, U <1 mg/dL [facility] EXT Albumin/Creati nine Ratio 10 0 - 30 MG/G [facility] 01/01/2023 7:40 AM CDT [facility] - 01/02/2023 12:34 PM CDT Source result document attached to Order Number [id number] ([id number]) dated 01/01/2023. External results verified in Extract by Patricia Allen on 01/02/2023 at 12:33 PM. Ordering Provider External Joel LAB URIN E ORDERABLES Performing Organization Address [facility]/ZIP Co de Phone Number [facility] [address] [place] [address] * EXT Magnesium (01/01/2023 7:40 AM CDT) [facility] EXT Magnesium 1.7 1.5 - 2.6 mg/dL [facility] 01/01/2023 7:40 AM CDT [facility] - 01/02/2023 12:34 PM CDT Source result document attached to Order Number [id number] ([id number]) dated 01/01/2023. External results verified in Extract by Patricia Allen on 01/02/2023 at 12:27 PM. Ordering Provider External Joel LAB BLOO D ADD-ON Performing Organization Address [facility]/ZIP Co de Phone Number [facility] [address] [place] [address] * EXT Phosphorus Inorganic (01/01/2023 7:40 AM CDT) [facility] EXT Phosphorus (Inorganic), S 3.7 2.5 - 4.5 mg/dL [facility] 01/01/2023 7:40 AM CDT [facility] - 01/02/2023 12:34 PM CDT Source result document attached to Order Number [id number] ([id number]) dated 01/01/2023. External results verified in Extract by Patricia Allen on 01/02/2023 at 12:27 PM. Ordering Provider External Joel LAB BLOO D ADD-ON Performing Organization Address [facility]/ZIP Co de Phone Number [facility] [address] [place] [address] * EXT Glucose, Random (01/01/2023 7:40 AM CDT) EXT Glucose 115 60 - 115 mg/dl [facility] 01/01/2023 7:40 AM CDT [facility] - 01/02/2023 12:34 PM CDT Source result document attached to Order Number [id number] ([id number]) dated 01/01/2023. External results verified in Extract by Patricia Allen on 01/02/2023 at 12:27 PM. Ordering Provider External Joel LAB BLOO D TROPONIN Performing Organization Address [facility]/ZIP Co de Phone Number [facility] [address] [place] [address] * EXT Creatinine with Estimated GFR (01/01/2023 7:40 AM CDT) EXT Creatinine 1.5 0.5 - 1.5 mg/dL [facility] EXT Estimated GFR (eGFR) 54 ml/min [facility] 01/01/2023 7:40 AM CDT [facility] - 01/02/2023 12:34 PM CDT Source result document attached to Order Number [id number] ([id number]) dated 01/01/2023. External results verified in Extract by Patricia Allen on 01/02/2023 at 12:27 PM. Ordering Provider External Joel LAB BLOO D ADD-ON Performing Organization Address City/[facility]/ZIP Co de Phone Number [facility] [address] [place] [address], [facility] [phone] * EXT Potassium (01/01/2023 7:40 AM CDT) [facility] EXT Potassium 4.8 3.6 - 5.1 mmol/L [facility] 01/01/2023 7:40 AM CDT Narrative [facility] - 01/02/2023 12:34 PM CDT Source result document attached to Order Number [id number] ([id number]) dated 01/01/2023. External results verified in Extract by Patricia Allen on 01/02/2023 at 12:27 PM. Ordering Provider External Joel LAB BLOO D ADD-ON Performing Organization Address [facility]/ZIP Co de Phone Number [facility] [address] [place] [address], [facility] [phone] * (ABNORMAL) EXT Complete Blood Count, Blood (01/01/2023 7:40 AM CDT) Pathologist [facility] EXT Leukocytes 3.64(L) 4.50 - 11.00 K/uL [facility] EXT RBC 4.33 4.30 - 5.90 m/uL [facility] EXT Hemoglobin 14.1 13.5 - 17.5 gm/dL [facility] EXT Hematocrit 40.8 37.0 - 53.0 % [facility] EXT Platelet Count 162 140 - 440 K/uL [facility] EXT Neutrophils 2.40 1.7 - 7.0 K/uL [facility] EXT Monocytes 0.40 0.00 - 0.90 K/UL [facility] EXT Eosinophils 0.00 0.00 - 0.90 K/UL [facility] EXT Basophils 0.00 0.00 - 0.30 K/uL [facility] EXT MCV 94 80 - 100 fL [facility] EXT RDW 12.2 11.5 - 15.5 % [facility] EXT Lymphocytes 0.80(L) 0.90 - 2.90 K/uL [facility] 01/01/2023 7:40 AM CDT Narrative [facility] - 01/02/2023 12:34 PM CDT External results verified in Extract by Patricia Allen on 01/02/2023 at 12:27 PM. Ordering Provider External Joel LAB BLOO D NON ADD-ON [facility] [address] [place] [address], [facility] [phone] documented in this encounter Visit Diagnoses Not on filedocumented in this encounter Additional Health Concerns Assessment Noted Time PHQ-9 Depression Total Score: 0 07/17/20 17 1:08 PM CDT documented as of this encounter Care Teams Senior Director Insight Relationship Specialty Start Date End Date Elsewhere, Pcp PCP - General Internal Medicine 05/02/22 [facility] [address] [place] [address] Laboratory Medicine 07/19/20 documented as of this encounter
--- OUTSIDE RECORDS SUMMARY | 2023-11-06 10:58 | XMS_ITS | Encounter Summary ---
Author Name Unknown Organization [facility] Address [address] [place] [address] Care Team Providers Care Foreign Language Instructor Name Role Phone Elsewhere, Pcp Primary Care Provider Unavailabl e Reason for Visit * Reason Comments Med Refill Encounter Details Date Type Department Care Team (Late st Contact Info) Description 12/12[facility]20[facility] [place], [place] [address] [place] [phone] Josette Hannon M.D. [address] [place] [phone] Med Refill Social History Tobacco Use Types [...] week 05/12/2021 How often do you attend [facility] or uatsdin services? Never 05/12/2021 Do you [...] Answer Date Recorded PHQ-2 Score 0 02/27/2019 [facility]at ional Health - [...] Master's degree (e.g., MA, MS, Young, MEd, HOME HEALTH AIDE, ERNIE) 05/08/2019 Sex and Gender Information Value [...] documented as of this encounter Care Teams Foreign Language Instructor Relationship Specialty Start Date End Date Elsewhere, Pcp PCP - General Internal Medicine 05/02/22 [facility] [address] [place], [place] [address] Laboratory Medicine 07/19/20 documented as of this encounter
--- OUTSIDE RECORDS SUMMARY | 2023-11-06 10:58 | XMS_ITS | Encounter Summary ---
Author Name Unknown Organization [facility] Address [address] [place] [address] Care Team Providers Care Revenue Collector Name Role Phone Elsewhere, Pcp Primary Care Provider Unavailabl e Encounter Details Date Type Department Care Team (Late st Contact Info) Description 11/22/2022 Orders Only Joey christina [facility]plantation and Clinical Regeneration in [place], [place] [address] [place] [phone] BryceHoward M.D. [address] [place] [phone] Transplant Renal (HCC) Social History Tobacco Use [...] any clubs o r organizations such as buddhism groups, unions, fraternal or athletic [...] Date Recorded PHQ-2 Score 0 02/27/2019 [facility] Occupat ional Health - Occupational [...] Master's degree (e.g., MA, MS, Young, MEd, GLOST KILN PLACER, ERNIE) 05/08/2019 Sex and Gender Information Value [...] 5.0-15.0 (Trough) ng/mL 01/02/2023 10:13 AM CDT [facility] Comment: ----ADDITIONAL INFORMATION---- Target steady-state trough concentrations vary depending on the type of transplant, concomitant immunosuppression, clinical/institutional protocols, and time post-transplant. Results should be interpreted in conjunction with this clinical information and any physical signs/symptoms of rejection/toxicity. Testing performed by Liquid Chromatography-Tandem Mass Spectrometry (LC-MS/MS). This test was developed and its performance characteristics determined by [facility] in a manner consistent with CLIA requirements. This test has not been cleared or approved by the U.S. Food and Drug Administration. Blood (Blood, Venous) 01/01/2023 7:40 AM CDT 01/02/2023 7:11 AM CDT Howard Wu M.D. LAB BLOOD NON ADD-ON [facility] [address] [place] [address] [facility] [address] [place] [address] documented in this encounter Visit Diagnoses Diagnosis Transplant Renal (HCC) documented in this encounter Additional Health Concerns Assessment Noted Time PHQ-9 Depression Total Score: 0 07/17/20 17 1:08 PM CDT documented as of this encounter Care Teams Revenue Collector Relationship Specialty Start Date End Date Elsewhere, Pcp PCP - General Internal Medicine 05/02/22 [facility] [address] [place], [place] [address] Laboratory Medicine 07/19/20 documented as of this encounter
[2023-11-06 11:24] LABS: Cholesterol* 157 mg/dL (90-199)
[2023-11-06 11:25] LABS: HDL Cholesterol* 45 mg/dL (>=40); LDL Cholesterol Calculated 91 mg/dL (<100); Triglycerides* 105 mg/dL (40-149)
== END 2023-11-06 10:50 | disposition home or self-care (01) ==
LOC: NPINS 10:49
PROVIDERS: PCP Internal Medicine
DX: M81.0 Age-related osteoporosis without current pathological fracture (principal); E78.5 Hyperlipidemia, unspecified
CPT/HCPCS: 80061; 82043; 82565; 82570; 82947; 83735; 84100; 84132; 84443

== ENCOUNTER 2023-11-27 07:43 | Outpatient (CLI) | payer BC, SELFPAY | END 2023-11-27 07:44 | disposition home or self-care (01) | LOC: NFLDREF 12-10 12:41 | PROVIDERS: PCP Internal Medicine; Referring Provider Internal Medicine; Visit Provider Internal Medicine | DX: Z94.0 Kidney transplant status (principal); Z79.899 Other long term (current) drug therapy; D84.821 Immunodeficiency due to drugs | CPT/HCPCS: 82043; 82565; 82570; 82947; 83735; 84100; 84132 ==

== ENCOUNTER 2024-02-14 07:59 | Outpatient (CLI) | payer BC, SELFPAY ==
--- OUTSIDE RECORDS SUMMARY | 2024-02-14 08:04 | XMS_ITS | Clinical Summary ---
Author Organization [employer] [facility] Address [place], [place] [address] Care Team Providers Care Warehouse Order Puller Name Role Phone Jhoan Carmen MD Primary Care Provider Allergies No known active allergies Medications Medication Sig Dispensed Refills Start Date End Date Status OMEGA 3-6-9 40 MG-60 MG-10 UNIT CAP take 1 po twice daily 0 07/16/2007 Active alendronate (FOSAMAX) 70 mg tablet Take 70 mg by mouth every Sunday morning. 06/09/2015 Active mycophenolate (CELLCEPT) 250 mg capsule Take 250 mg by mouth. Takes 2 capsules in the am and 1 capsule in the pm 06/09/2015 Active predniSONE (DELTASONE) 5 mg tablet Take 5 mg by mouth once daily. In the am 06/09/2015 Active tacrolimus (PROGRAF) 1 mg capsule Take 1 mg by mouth. 2 capsules in the am and 2 capsules in the pm 06/09/2015 Active Aspirin, Buffered 81 mg tab [...] mg capsule Take 2 mg by mouth. 09/06/2020 Act lisa mycophenolate (CELLCEPT) 250 mg capsule TAKE 2 CAPSULES BY MOUTH IN THE MORNING AND 1 CAPSULE BY MOUTH IN THE PM TEVA BRAND 10/11/2020 Active Active Problems Problem Noted Date [...] Health Maintenance Due Date Last Done Comments Tdap 1977 Depression screening for age 12+ 1978 HIV for age 15-65 1981 BMI (ht and wt on same day) for age 18+ 1984 Hepatitis C screening for ag e 18-79 1984 Colonoscopy through age 75 2011 Lipids for age 45-75 2011 Tetanus booster 08/06/2012 08/06/2002 Zoster (shingles) series for age 50+ (1 of 2) 2016 COVID-19 vaccine series (2022- season) 2023 Influenza for age 50-64 05/25/2024 09/14/20 09, 07/08/2009, 07/20/2008 Pneumococcal series for age 6-64 Aged Out 09/14/2008, 11/30/1999 No longer eligible based on patient's age to complete this topic Care Teams Warehouse Order Puller Relationship Specialty Start Date End Date Jhoan Carmen MD [address] [place] [address] PCP - General 01/30/06
== END 2024-02-14 08:00 | disposition home or self-care (01) ==
PROVIDERS: PCP Internal Medicine; Visit Provider Internal Medicine
DX: N02.8 Recurrent and persistent hematuria with other morphologic changes (principal); R73.03 Prediabetes; Z94.0 Kidney transplant status
CPT/HCPCS: 82043; 82565; 82570; 82947; 83735; 84100; 84132

== ENCOUNTER 2024-05-07 07:36 | Outpatient (CLI) | payer BC, SELFPAY | END 2024-05-07 07:37 | disposition home or self-care (01) | PROVIDERS: PCP Internal Medicine; Visit Provider Internal Medicine | DX: R73.03 Prediabetes (principal); N02.8 Recurrent and persistent hematuria with other morphologic changes; Z94.0 Kidney transplant status | CPT/HCPCS: 82043; 82565; 82570; 82947; 83735; 84100; 84132 ==

== ENCOUNTER 2024-05-27 07:40 | Outpatient (CLI) | payer BC, SELFPAY ==
--- OUTSIDE RECORDS SUMMARY | 2024-05-27 13:32 | XMS_ITS | Clinical Summary ---
Author Organization [facility] [facility] [place], [place] [address] Care Team Providers Care Load Haul Dump Operator Name Role Phone Jhoan Carmen MD [...] (1 of 2) 2016 COVID-19 vaccine series ( season) 2024 Influenza for age 50-64 05/25/2024 09/14/20 09, 07/08/2009, 07/20/2008 Pneumococcal series for age 6-64 Aged Out 09/14/2008, 11/30/1999 No longer eligible based on patient's age to complete this topic Care Teams Load Haul Dump Operator Relationship Specialty Start Date End Date Jhoan Carmen MD [address] [place] [address] PCP - General 01/30/06
== END 2024-05-27 07:41 | disposition home or self-care (01) ==
LOC: NFLDREF 13:31
PROVIDERS: PCP Internal Medicine; Referring Provider Internal Medicine; Visit Provider Internal Medicine
DX: E78.5 Hyperlipidemia, unspecified (principal); Z12.5 Encounter for screening for malignant neoplasm of prostate
CPT/HCPCS: 80061; G0103

== ENCOUNTER 2024-09-02 08:03 | Outpatient (CLI) | payer BC, SELFPAY ==
--- OUTSIDE RECORDS SUMMARY | 2024-09-02 08:12 | XMS_ITS | Clinical Summary ---
Author Organization [facility] Address [address] [place] [address] Care Team Providers Care Edge Plugger Name Role Phone Elsewhere, Pcp Primary Care Provider Unavailabl e Source Comments Patient records contain information from all sites at [facility]. For routine questions regarding patient records, call [phone] during business hours, M-F 8:00 AM - 5:00 PM Central Time. Record requests for emergency care only can be directed to [phone] at any time.[facility] Allergies Active Allergy Reactions Criticality Noted Date Comments No Known Allergies Other (see comments) 011 Medications * This document contains information received from the source organization and may not represent a complete record from that organization. omega-3 fatty acids-fish oil 300-1,000 mg per capsule Take 1 capsule by mouth daily. 6 Active Lactobacillus acidophilus (PROBIOTIC ORAL) Take 1 tablet by mouth daily. Active alendronate (FOSAMAX) 70 mg tablet TAKE 1 TABLET (70 MG TOTAL) BY MOUTH ONCE A WEEK. 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 90 tablet 3 3 Active tacrolimus (PROGRAF) 1 mg capsuleIndicatio ns:Transplant Renal (HCC) Take 2 capsules (2 mg total) by mouth every morning AND 1 capsule (1 mg total) every evening. 270 capsule 3 4 Active calcium carbonate-vit D3-min 600 mg calcium- 400 unit tablet Take 1 tablet by mouth 2 (two) times a day. 6 60 tablet 11 4 Active predniSONE (Deltasone) 1 mg tabletIndication s:Transplant Renal (HCC) Take 4 tablets (4 mg total) by mouth daily. 120 tablet 11 4 05/31/20 25 Active blood-glucose sensor (FreeStyle Emeka 3 Sensor) deviceIndication s:Hyperglycemia 1 each as directed. Change every 14 days for continuous glucose monitoring. 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 06/17/2024 Refill Joey christina [facility] in [place], [place] [address] [place] [address] Nasra Montalvo APRN, C.N.P., D.N.P. Med Refill 06/17/2024 Refill Division of Nephrology and Hypertension in [place], [place] [address] [place] [address] Rah Soliz M.D. Med Refill 06/12/2024 Clinical Communication [facility] [place], [place] [address] [place] [phone] Linda Lala R.N., C.C.T.C. 06/09/2024 2:10 PM CDT - 06/09/2024 11:59 PM CDT Hospital Encounter Department of Laboratory Medicine and Pathology, [place], [place] [address] [place] [address] Mac Yi, MILI, C.N.P., M.S.N. Transplant Renal (HCC) Discharge Disposition: Home or Self Care 06/05/2024 3:09 PM CDT - 06/05/2024 11:59 PM CDT Hospital Encounter Department of Laboratory Medicine and Pathology, [place], [place] [address] [place] [address] Josette Hannon M.D. Chronic Kidney Disease Stage 4 Glomerular Filtration Rate 15-29 (HCC) Discharge Disposition: Home or Self Care 06/05/2024 2:18 PM CDT - 06/05/2024 3:08 PM CDT Hospital Encounter Department of Laboratory Medicine and Pathology, [place], [place] [address] [place] [address] Josette Hannon M.D. Transplant Renal (HCC) Discharge Disposition: Home or Self Care 06/05/2024 1:30 PM CDT [facility] [place], [place] [address] [place] [address] Josette Hannon M.D. Transplant Renal (HCC) (Primary Dx) 06/05/2024 9:35 AM CDT - 06/05/2024 2:17 PM CDT Hospital Encounter Department of Laboratory Medicine and Pathology, [place], [place] [address] [place] [address] Josette Hannon M.D. Transplant Renal (HCC) Discharge Disposition: Home or Self Care 06/05/2024 9:04 AM CDT - 06/05/2024 9:34 AM CDT Hospital Encounter [facility] in [place], [place] [address] [place] [address] Josette Hannon M.D. Transplant Renal (HCC) Discharge Disposition: Home or Self Care 06/05/2024 Orders Only [facility] in [place], [place] [address] [place] [address] Mac Yi, MILI, C.N.P., M.S.N. Transplant Renal (HCC) 06/04/2024 7:31 AM CDT - 06/04/2024 11:59 PM CDT Hospital Encounter Department of Laboratory Medicine in [address] [address] Josette Hannon M.D. Transplant Renal (HCC) Discharge Disposition: Home or Self Care 06/04/2024 7:30 AM CDT Hospital Encounter Department of Laboratory Medicine in [address] [phone] Josette Hannon M.D. Transplant Renal (HCC) Discharge Disposition: Home or Self Care from Last 3 Months Immunizations Name Administration Dates Next Due HepA, Unspecified 05/02/1996,11/02/1995 HepB, Unspecified 06/15/2000, 6,11/30/1995,1995 Influenza Split 07/25/2007,09/24/2005 Influenza, Injectable, Mdck, Quadrivalent 07/22/2021 PCV13 05/21/2013 PPSV23 12/17/2018,09/14/2008,09/24/1999 RZV (SHINGRIX) 11/20/2018,06/06/2018 SARS-COV-2 (COVID-19) - MODERNA(Discontinued) 11/08/2021 Td, (Adult) Unspecified 09/24/2001 Tdap 04/18/2012 TyVi (inj) 06/15/2000 influenza vaccine quad (FLUZONE/FLUARIX) (6 months and older)(PF) 07/17/2017 Social History Tobacco Use Types Packs/Day Years Used Date Smoking Tobacco: Never Smokeless Tobacco: Never Alcohol Use Standard Drinks/Week Comments Yes 6 (1 standard drink = 0.6 oz pur [...] Answer Date Recorded PHQ-2 Score 0 02/27/2019 [facility] of Occupat ional Health - Occupational Stress [...] Dental Answer Date Recorded Dental: Regular Dentist Unknown 05/12/20 24 Employment Answer Date Recorded Employment status Employed and actively working without restrictions 05/12/2021 Education Answer Date Recorded What is the highest level of school you have completed or the highest degree you have received? Master's degree (e.g., MA, MS, Young, MEd, [employer], ERNIE) 05/08/2019 Sex and Gender Information Value Date Recorded Sex Assigned at Male 05/27/2018 8:52 AM CDT Legal Sex Male 7:01 PM CLINICAL INVESTIGATOR Gender Identity Male 05/27/2018 8:52 AM CDT Sexual Orientation Straight 05/27/2018 8: 52 AM CDT Last Filed Vital Signs Vital Sign Reading Time Taken Comments Blood Pressure 108/69 06/05/2024 1:48 PM CDT Pulse 96 06/05/2024 1:48 PM CDT Temperature 36.9 C (98.4 F) 05/30/2023 1:36 PM CDT Respiratory Rate 16 05/23/2016 3:30 PM CDT Oxygen Saturation - - Inhaled Oxygen Concentration - - Weight 68.9 kg (151 lb 14.4 oz) 06/05/2024 9:43 AM CDT Height 185.6 cm (6' 1.07) 06/05/2024 9:43 AM CD T Body Mass Index 20 06/05/2024 9:43 AM CDT Plan of Treatment Upcoming Encounters Date Type Department Care Team (Late st Contact Info) Description 2024 9:00 AM CLINICAL INVESTIGATOR Appointment [facility] in [place], [place] [address] [place] [address] Elio Churchill M.D. [address] [place] [phone] 2024 10:30 AM CLINICAL INVESTIGATOR Office Visit Joey christina [facility] in [place], [place] [address] [place] [address] Josette Hannon M.D. [address] [place] [phone] Health Maintenance Due Date Last Done Comments CT Colonography 1966 Cologuard 1966 FIT 1966 Hepatitis C Screening 1966 Meningococcal Vaccine (1 - Risk 1-dose series ) 1968 MenB Vaccine (1 of 2 - Patient Seeks Protection) 1982 Depression Screening (Annual PHQ-2) 09/24/2023 Colonoscopy 11/03/2023 11/03/2013 Colorectal Cancer Screening 11/03/2023 COVID-19 Vaccine ( season) 2024 06/27/2023, 06/18/2022, 11/08/2021, Additional history exists Influenza Vaccine (#1) 2024 , 07/14/2022, 07/22/2021, Additional history exists Fasting Glucose for Diabetes Screening 06/04/2025 06/04/2024, 06/04/2024, 05/07/2024, Additional history exists Lipid (Cholesterol) Screening 06/04/2025 06/04/2024, 11/06/2023, 05/30/2023, Additional history exists Office Visit for Blood Pressure Check / Re-check 06/05/2025 06/05/2024 Pneumococcal vaccine (0-64 years) (4 of 4 - PPSV23 or PCV20) 2031 12/17/2018, 05/21/2013, 09/14/2008, Additional history exists DTaP,Tdap,and Td Vaccines (3 - Td or Tdap) 03/20/2033 03/20/2023, 04/18/2012, 09/24/2001 Hepatitis A Vaccines Completed 05/02/1996, 11/02/18 96 Hepatitis B Vaccines Completed 06/15/2000, 05/02/1996, 11/30/1995, Additional history exists Zoster Vaccines Completed 11/20/2018, 06/06/2018 HPV Vaccines Aged Out No longer eligi ble based on patient's age to complete this topic IPV Vaccines Aged Out No longer eligi ble based on patient's age to complete this topic Medical Devices Implanted Type Area Internet Site Designer Device Identifier Shelf Expiration Date Model / Serial / Lot Stent Uret Dbl. J 7 X 12 - Chopra [id number] Implanted:Qty: 1 on 05/22/2011 Ureteral Stent Other/Legacy - See Implant Description Description:Device Manufactu rer - [employer]. Device Status Text - [id number]. Procedures Procedure Name Priority Date/Time Associated Diagnosis Comments SUPERSATURATION, 24H, U Routine 06/10/2024 7:00 AM CDT Chronic Kidney Disease Stage 4 Glomerular Filtration Rate 15-29 (HCC) ECG Routine 06/05/2024 2:58 PM CDT Transplant Renal (HCC) OXALATE, PLASMA Routine 06/05/2024 2:51 PM CDT Transplant Renal ([facility]) IOTHALAMATE, GLOMERULAR FILTRATION RATE, P Routine 06/05/2024 9:48 AM CDT BMD BONE DENSITY SPINE HIPS RAD - Routine (most inpatients and all outpatients) 06/05/2024 9:42 AM CDT Transplant Renal ([facility]) PROTEIN/CREATININE RATIO, RANDOM, URINE Routine 06/04/2024 7:52 AM CDT Transplant Renal ([facility]) ALBUMIN, RANDOM, U Routine 06/04/2024 7: 52 AM CDT Transplant Renal ([facility]) URINALYSIS WITH MICROSCOPIC Routine 06/04/2024 7:52 AM CDT Transplant Renal ([facility]) BACTERIAL CULTURE, AEROBIC + SUSC, URINE Routine 06/04/2024 7:52 AM CDT Transplant Renal ([facility]) HLA CLASS I/II COMBINED CPRA, SERUM Routine 06/04/2024 7:45 AM CDT HLA CLASS II SAB ANTIBODY SCREEN Routine 06/04/2024 7:45 AM CDT Transplant Renal ([facility]) HLA CLASS I SAB ANTIBODY SCREEN Routine 06/04/2024 7:45 AM CDT Transplant Renal ([facility]) PARATHYROID HORMONE (PTH), S Routine 06/04/2024 7:45 AM CDT Transplant Renal ([facility]) 25-HYDROXYVITAMIN D2 AND D3, S Routine 06/04/2024 7:45 AM CDT Transplant Renal ([facility]) MYCOPHENOLIC ACID, S Routine 06/04/2024 7:45 AM CDT Transplant Renal ([facility]) TACROLIMUS LEVEL, B Routine 06/04/2024 7 :45 AM CDT Transplant Renal ([facility]) HEMOGLOBIN A1C, B Routine 06/04/2024 7:4 5 AM CDT Transplant Renal (HCC) LIPID PANEL, S Routine 06/04/2024 7:45 AM CDT Transplant Renal (HCC) MAGNESIUM, S Routine 06/04/2024 7:45 AM CDT Transplant Renal (HCC) PHOSPHORUS (INORGANIC), S Routine 06/04/2024 7:45 AM CDT Transplant Renal (HCC) COMPREHENSIVE METABOLIC PANEL, S/P Routine 06/04/2024 7:45 AM CDT Transplant Renal (HCC) CBC WITH DIFFERENTIAL, B Routine 06/04/2024 7:45 AM CDT Transplant Renal (HCC) BKV DNA DETECT/QUANT, P Routine 06/04/2024 7:45 AM CDT Transplant Renal (HCC) ALBUMIN, 24 HR, U Routine 06/04/2024 6:4 0 AM CDT Transplant Renal (HCC) PROTEIN, TOTAL, 24 HR, U Routine 06/04/2024 6:40 AM CDT Transplant Renal (HCC) COLONOSCOPY Routine 11/03/2013 2:40 PM CLINICAL INVESTIGATOR from Last 3 Months or Most Recently Relevant to Health Maintenance Results * (ABNORMAL) Supersaturation, 24 hour, Urine (06/10/2024 7:00 AM CDT) Sodium, 24 HR, U 104 22 - 328 mmol/24 h 06/11/2024 11:10 AM CDT DTL Potassium, 24 HR, U 85 16 - 105 mmol/24 h 06/11/2024 10:48 AM CDT DTL Calcium, 24 HR, U 275(H) <250 mg/24 h 06/11/2024 10:48 AM CDT DTL Magnesium, 24 HR, U 122 51 - 269 mg/24 h 06/11/2024 10:48 AM CDT DTL Chloride, 24 HR, U 82 34 - 286 mmol/24 h 06/11/2024 11:10 AM CDT DTL Phosphorus, 24 HR, U 915 226 - 1797 mg/24 h 06/11/2024 10:48 AM CDT DTL Sulfate, 24 HR, U 30 7 - 47 mmol/24 h 06/11/2024 8:47 PM CDT DTL Comment: ----ADDITIONAL INFORMATION---- This test was developed and its performance characteristics determined by [facility] in a manner consistent with CLIA requirements. This test has not been cleared or approved by the U.S. Food and Drug Administration. Citrate Excretion, 24 HR, U 470 413 - 1191 mg/24 h 06/11/2024 11:15 AM CDT DTL Comment: ----ADDITIONAL INFORMATION---- This test was developed and its performance characteristics determined by [facility] in a manner consistent with CLIA requirements. This test has not been cleared or approved by the U.S. Food and Drug Administration. Oxalate, 24 HR, U (mmol/24 HR) 0.34 0.11 - 0.46 mmol/24 h 06/11/2024 3:15 PM CDT DTL Comment: ----ADDITIONAL INFORMATION---- This test was developed and its performance characteristics determined by [facility] in a manner consistent with CLIA requirements. This test has not been cleared or approved by the U.S. Food and Drug Administration. Oxalate, 24 HR, U (mg/24 HR) 29.9 9.7 - 40.5 mg/24 h 06/11/2024 3:15 PM CDT DTL pH, 24 HR, U 6.0 4.5 - 8.0 06/11/2024 10:12 AM CDT DTL Uric Acid, 24 HR, U 580 200 - 1000 mg/24 h 06/11/2024 10:48 AM CDT DTL Creatinine, 24 HR, U 1556 930 - 2955 mg/24 h 06/11/2024 10:48 AM CDT DTL Osmolality, 24 HR, U 314 150 - 1150 mOsm/kg 06/11/2024 10:12 AM CDT DTL Ammonium, 24 HR, U 33 15 - 56 mmol/24 h 06/11/2024 4:10 PM CDT DTL Comment: ----ADDITIONAL INFORMATION---- This test has been modified from the clinical program coordinator's instructions. Its performance characteristics were determined by [facility] in a manner consistent with CLIA requirements. This test has not been cleared or approved by the U.S. Food and Drug Administration. Urea Nitrogen, 24 HR, U 15.0 7.0 - 42.0 g/24 h 06/11/2024 11:10 AM CDT DTL Protein Catabolic Rate, 24 HR, U 119 56 - 125 g/24 h 06/11/2024 11:10 AM CDT DTL Patient Surface Area SEE COMMENT 1.73m(2) 06/11/2024 8:58 AM CDT DTL Comment:Adult values are not corrected for body surface area. Calcium Oxalate Crystal 1.41 Reference Mean= 1.89 DG 06/12/2024 6:40 AM CDT DTL Brushite Crystal -0.63 Reference Mean= 0.46 DG 06/12/2024 6:40 AM CDT DTL Hydroxyapatite Crystal 3.40 Reference Mean= 4.19 DG 06/12/2024 6:40 AM CDT DTL Uric Acid Crystal -0.70 Reference Mean= 1.18 DG 06/12/2024 6:40 AM CDT DTL Collection Duration 24 h 06/12/2024 6:40 AM CDT DTL Volume 3050 mL 06/12/2024 6:40 AM CDT DTL Interpretation The DG is related to supersaturation. DG is negative for undersaturated solutions, zero for solutions at the solubility product, and positive for saturated solutions. Any value greater than the Reference Mean is considered a risk for the respective crystal type formation. In general, a higher calculated SS means the risk for forming that type of stone is increased. A positive DG value indicates that the urine is supersaturated for that crystal type. SSINT is the reportable component of the orderable test code, SUP24. A full copy of the interpretative report is available as a PDF appended to this cover sheet and is ready to review. 06/12/2024 6:40 AM CDT DTL Urine (Urine, 24 Hours) 06/10/2024 7:00 AM CDT 06/11/2024 8:58 AM CDT Josette Hannon M.D. LAB URINE ORDERABLES Final Result Performing Organization Address [facility] de Phone Number [facility] [address] [place] [address], [place] [facility] [address] [place] [address] DT 200 [facility] [address] [place] [address] * ECG 12 Lead (06/05/2024 2:58 PM CDT) Ventricular Rate ECG/Min 73 BPM MUSE WV Interval 148 ms MUSE QRSD Interval 98 ms MUSE QT Interval 374 ms MUSE QTC Interval 412 ms MUSE P [place] 58 degrees MUSE R [place] 81 degrees MUSE T Wave [place] 28 degrees MUSE 06/05/2024 2:58 PM CDT 06/05/2024 3:01 PM CDT Impressions MUSE - 06/05/2024 3:01 PM CDT Normal sinus rhythm with sinus arrhythmia Nonspecific T wave abnormality When compared with ECG of 30-May-2023 08:03, No significant change was found Reviewed by Rip Beltran III, CRAT Narrative Procedure Note Pratik Bolden M.D., Ph.D. - 06/05/2024 IMPRESSION: Normal sinus rhythm with sinus arrhythmia Nonspecific T wave abnormality When compared with ECG of 30-May-2023 08:03, No significant change was found Reviewed by Rip Beltran III, CRAT us Josette Hannon M.D. ECG ORDERABLES Final Resu lt Performing Organization Address [facility]/ZIP Co de Phone Number MUSE NA * Oxalate (06/05/2024 2:51 PM CDT) Oxalate, Plasma <1.5 <=2.0 mcmol/L 06/06/2024 2:37 PM CDT VAN Comment: ----ADDITIONAL INFORMATION---- This test has been modified from the clinical program coordinator's instructions. Its performance characteristics were determined by [facility] in a manner consistent with CLIA requirements. This test has not been cleared or approved by the U.S. Food and Drug Administration. Blood (Blood, Venous) 06/05/2024 2:51 PM CDT 06/05/2024 3:35 PM CDT Josette Hannon M.D. LAB BLOOD NON ADD-ON Final Result [facility] [address] [place] [address], [facility] [address] [place] [address] * (ABNORMAL) Iothalamate, Glomerular Filtration Rate (06/05/2024 9:48 AM CDT) Uncorrctd Iothal Cl 47 mL/min 06/06 10:00 AM CDT VAN Corrctd Iothal Cl 42(L) 69 - 123 mL/min/BS A 06/06/2024 10:00 AM CDT VAN Comment: ----ADDITIONAL INFORMATION---- This test was developed and its performance characteristics determined by [facility] in a manner consistent with CLIA requirements. This test has not been cleared or approved by the U.S. Food and Drug Administration. Blood (Blood, Venous) 06/05/2024 9:48 AM CDT 06/05/2024 12:08 PM CDT Narrative [facility] - 06/06/2024 10:00 AM CDT Specimen Information: Specimen ID: [id number] Specimen Collection Start Date: 06/05/2024 9:48 AM Specimen Received Date: 06/05/2024 12:08 PM Specimen ID: [id number] Specimen Collection Start Date: 06/05/2024 10:53 AM Specimen Received Date: 06/05/2024 12:08 PM Specimen ID: [id number] Specimen Collection Start Date: 06/05/2024 11:41 AM Specimen Received Date: 06/05/2024 12:08 PM Specimen ID: [id number] Specimen Collection Start Date: 06/05/2024 10:56 AM Specimen Received Date: 06/05/2024 12:08 PM Specimen ID: [id number] Specimen Collection Start Date: 06/05/2024 11:44 AM Specimen Received Date: 06/05/2024 12:08 PM Josette Hannon M.D. LAB BLOOD NON ADD-ON Final Result [facility] [address] [place] [address], [facility] [address] [place] [address] [place] [address] * BMD Bone Density Spine Hips (06/05/2024 9:42 AM CDT) Anatomical Region Laterality Modality Hip, Lumbar Spine, Nuclear M edicine RST LOS, Musculoskeletal ARZ LOS, Muskuloskeletal FLA LOS N/A Radio graphic Imaging Impressions 06/05/2024 11:10 AM CDT Osteoporosis DualFemur (region: Neck Right) Narrative 06/05/2024 11:10 AM CDT EXAM: BMD BONE DENSITY SPINE HIPS Bone Mineral Density (BMD) analysis performed on [employer] with serial number [id number]. COMPARISON: Serial Comparisons Left Total Hip results: Exam Date BMD T-score 06/08/2011 0.728 g/cm2 -2.2 ... ... ... 05/21/2012 0.754 g/cm2 -2.0 05/21/2012 0.755 g/cm2 -2.0 05/08/2014 0.782 g/cm2 -1.8 05/23/2016 0.798 g/cm2 -1.7 05/31/2018 0.760 g/cm2 -2.0 05/25/2020 0.754 g/cm2 -2.0 05/02/2022 0.727 g/cm2 -2.2 08/30/2023 0.724 g/cm2 -2.3 06/05/2024 0.722 g/cm2 -2.3 Change vs. Previous (difference): -0.002 g/cm2 Change vs. Previous (%): -0.3 % The absolute BMD change from previous, -0.002 g/cm2, is greater than least significant change: No The absolute BMD change from baseline, -0.006 g/cm2, is greater than least significant change: No Right Total Hip results: Exam Date BMD T-score 06/08/2011 0.766 g/cm2 -1.9 ... ... ... 05/21/2012 0.778 g/cm2 -1.8 05/21/2012 0.779 g/cm2 -1.8 05/08/2014 0.821 g/cm2 -1.5 05/23/2016 0.838 g/cm2 -1.3 05/31/2018 0.779 g/cm2 -1.8 05/25/2020 0.801 g/cm2 -1.6 05/02/2022 0.776 g/cm2 -1.8 08/30/2023 0.754 g/cm2 -2.0 06/05/2024 0.732 g/cm2 -2.2 Change vs. Previous (difference): -0.022 g/cm2 Change vs. Previous (%): -2.9 % The absolute BMD change from previous, -0.022 g/cm2, is greater than least significant change: No The absolute BMD change from baseline, -0.034 g/cm2, is greater than least significant change: Yes Combined Total Hip results: Exam Date BMD T-score 06/08/2011 0.747 g/cm2 -2.1 ... ... ... 05/21/2012 0.766 g/cm2 -1.9 05/21/2012 0.767 g/cm2 -1.9 05/08/2014 0.802 g/cm2 -1.6 05/23/2016 0.818 g/cm2 -1.5 05/31/2018 0.770 g/cm2 -1.9 05/25/2020 0.778 g/cm2 -1.8 05/02/2022 0.752 g/cm2 -2.0 08/30/2023 0.739 g/cm2 -2.1 06/05/2024 0.727 g/cm2 -2.2 Change vs. Previous (difference): -0.012 g/cm2 Change vs. Previous (%): -1.6 % The absolute BMD change from previous, -0.012 g/cm2, is greater than least significant change: No The absolute BMD change from baseline, -0.020 g/cm2, is greater than least significant change: No Spine results: Exam Date BMD T-score 06/08/2011 0.871 g/cm2 -2.5 ... ... ... 05/21/2012 0.960 g/cm2 -1.8 05/21/2012 0.946 g/cm2 -1.9 05/08/2014 1.008 g/cm2 -1.4 05/23/2016 1.013 g/cm2 -1.3 05/31/2018 0.930 g/cm2 -2.0 05/25/2020 0.970 g/cm2 -1.7 05/02/2022 0.931 g/cm2 -2.0 08/30/2023 0.920 g/cm2 -2.1 06/05/2024 0.961 g/cm2 -1.8 Change vs. Previous (difference): 0.041 g/cm2 Change vs. Previous (%): 4.5 % The absolute BMD change from previous, 0.041 g/cm2, is greater than the least significant change: No The absolute BMD change from baseline, 0.090 g/cm2, is greater than the least significant change: Yes ----- FINDINGS: Left Hip: Femur Neck: BMD = 0.663 g/cm2 T-score = -2.7 Z-score = -2.1 Total Hip: BMD = 0.722 g/cm2 T-score = -2.3 Z-score = -2.0 Right Hip: Femur Neck: BMD = 0.646 g/cm2 T-score = -2.8 Z-score = -2.2 Total Hip: BMD = 0.732 g/cm2 T-score = -2.2 Z-score = -1.9 Lumbar Spine: L1: BMD = 0.946 g/cm2 L2: BMD = 0.977 g/cm2 L3: BMD = 1.021 g/cm2 L4: BMD = 1.128 g/cm2 Total Lumbar Spine (L1-L2): BMD = 0.961 g/cm2 T-score = -1.8 Z-score = -1.5 Trabecular Bone Score: L1-L2: TBS = 1.344 < 1.23: low 1.23 -1.31: borderline > 1.31: normal A low TBS has been associated with increased risk of fractures in certain populations. TBS should not be used alone to determine treatment recommendations. It can be used in conjunction with BMD and FRAX to inform management. Please note: A more comprehensive DXA report, including images and graphs, is available in [employer] [facility]. In the absence of other causes of [...] skeletal fragility in the appropriate clinical setting. Patient does not meet ISCD guidelines for FRAX calculations. (on treatment) Procedure Note Jimmy Whitfield M.D. - 06/05/2024 EXAM: BMD BONE DENSITY SPINE HIPS Bone Mineral Density (BMD) analysis performed on [employer] with serialnumber [id number]. COMPARISON: Serial Comparisons Left Total Hip results: Exam Date BMD T-score 06/08/2011 0.728 g/cm2 -2.2 ... ... ... 05/21/2012 0.754 g/cm2 -2.0 05/21/2012 0.755 g/cm2 -2.0 05/08/2014 0.782 g/cm2 -1.8 05/23/2016 0.798 g/cm2 -1.7 05/31/2018 0.760 g/cm2 -2.0 05/25/2020 0.754 g/cm2 -2.0 05/02/2022 0.727 g/cm2 -2.2 08/30/2023 0.724 g/cm2 -2.3 06/05/2024 0.722 g/cm2 -2.3 Change vs. Previous (difference): -0.002 g/cm2 Change vs. Previous (%): -0.3 % The absolute BMD change from previous, -0.002 g/cm2, is greater than least significant change: No The absolute BMD change from baseline, -0.006 g/cm2, is greater than least significant change: No Right Total Hip results: Exam Date BMD T-score 06/08/2011 0.766 g/cm2 -1.9 ... ... ... 05/21/2012 0.778 g/cm2 -1.8 05/21/2012 0.779 g/cm2 -1.8 05/08/2014 0.821 g/cm2 -1.5 05/23/2016 0.838 g/cm2 -1.3 05/31/2018 0.779 g/cm2 -1.8 05/25/2020 0.801 g/cm2 -1.6 05/02/2022 0.776 g/cm2 -1.8 08/30/2023 0.754 g/cm2 -2.0 06/05/2024 0.732 g/cm2 -2.2 Change vs. Previous (difference): -0.022 g/cm2 Change vs. Previous (%): -2.9 % The absolute BMD change from previous, -0.022 g/cm2, is greater than least significant change: No The absolute BMD change from baseline, -0.034 g/cm2, is greater than least significant change: Yes Combined Total Hip results: Exam Date BMD T-score 06/08/2011 0.747 g/cm2 -2.1 ... ... ... 05/21/2012 0.766 g/cm2 -1.9 05/21/2012 0.767 g/cm2 -1.9 05/08/2014 0.802 g/cm2 -1.6 05/23/2016 0.818 g/cm2 -1.5 05/31/2018 0.770 g/cm2 -1.9 05/25/2020 0.778 g/cm2 -1.8 05/02/2022 0.752 g/cm2 -2.0 08/30/2023 0.739 g/cm2 -2.1 06/05/2024 0.727 g/cm2 -2.2 Change vs. Previous (difference): -0.012 g/cm2 Change vs. Previous (%): -1.6 % The absolute BMD change from previous, -0.012 g/cm2, is greater than least significant change: No The absolute BMD change from baseline, -0.020 g/cm2, is greater than least significant change: No Spine results: Exam Date BMD T-score 06/08/2011 0.871 g/cm2 -2.5 ... ... ... 05/21/2012 0.960 g/cm2 -1.8 05/21/2012 0.946 g/cm2 -1.9 05/08/2014 1.008 g/cm2 -1.4 05/23/2016 1.013 g/cm2 -1.3 05/31/2018 0.930 g/cm2 -2.0 05/25/2020 0.970 g/cm2 -1.7 05/02/2022 0.931 g/cm2 -2.0 08/30/2023 0.920 g/cm2 -2.1 06/05/2024 0.961 g/cm2 -1.8 Change vs. Previous (difference): 0.041 g/cm2 Change vs. Previous (%): 4.5 % The absolute BMD change from previous, 0.041 g/cm2, is greater than the least significant change: No The absolute BMD change from baseline, 0.090 g/cm2, is greater than the least significant change: Yes ----- FINDINGS: Left Hip: Femur Neck: BMD = 0.663 g/cm2 T-score = -2.7 Z-score = -2.1 Total Hip: BMD = 0.722 g/cm2 T-score = -2.3 Z-score = -2.0 Right Hip: Femur Neck: BMD = 0.646 g/cm2 T-score = -2.8 Z-score = -2.2 Total Hip: BMD = 0.732 g/cm2 T-score = -2.2 Z-score = -1.9 Lumbar Spine: L1: BMD = 0.946 g/cm2 L2: BMD = 0.977 g/cm2 L3: BMD = 1.021 g/cm2 L4: BMD = 1.128 g/cm2 Total Lumbar Spine (L1-L2): BMD = 0.961 g/cm2 T-score = -1.8 Z-score = -1.5 Trabecular Bone Score: L1-L2: TBS = 1.344 < 1.23: low 1.23 -1.31: borderline > [...] of skeletalfragility in the appropriate clinical setting. Patient does not meet ISCD guidelines for FRAX calculations. (ontreatment) IMPRESSION: Osteoporosis DualFemur (region: Neck Right) Josette LOPEZ DXA PROCEDURES Final R esult * Bacterial Culture, Aerobic + Susceptibility, Urine (06/04/2024 7:52 AM CDT) Urine Culture No growth after 1 day of incubation. 06/05/2024 10:23 AM CDT ECLR Urine (Urine, Midstream) 06/04/2024 7:52 AM CDT 06/04/2024 3:15 PM CDT Comment:Specimen Source Site : Urine Josette Hannon M.D. LAB MICROBIOLOGY - GENERAL ORDERABLES Final Result [facility] [address] [place] [address], [facility] ECLR [place] [address] * Albumin, Random, Urine (06/04/2024 7:52 AM CDT) Microalbumin <12.0 mg/L 06/04/2024 8:09 AM CDT CNFL Comment:If clinically indica marcelle, contact the lab for additional testing. Creatinine 81 mg/dL 06/04/2024 8:09 AM CDT CNFL Albumin/Creatinine Ratio <15 <17 mg/g 06/04/2024 8:09 AM CDT CNFL Comment: This ratio may not correspond with the reference range because one or both of the values used to calculate the ratio was above or below the quantification limits. Urine (Urine, Midstream) 06/04/2024 7:52 AM CDT 06/04/2024 7:52 AM CDT Josette Hannon M.D. LAB URINE ORDERABLES Final Result [facility] [address] [place] [address], [place] CNFL [facility] [address] [address] * Protein/Creatinine Ratio, Random, Urine (06/04/2024 7:52 AM CDT) Protein, Total, Random, U 4 mg/dL 06/04/2024 1:38 PM CDT RDWG Creatinine, Random, U 81 16 - 326 mg/dL 06/04/2024 8:09 AM CDT CNFL Protein/Creatin ine Ratio 0.05 <0.18 mg/mg 06/04/2024 1:38 PM CDT RDWG Urine (Urine, Midstream) 06/04/2024 7:52 AM CDT 06/04/2024 8:09 AM CDT us Josette Hannon M.D. LAB URINE ORDERABLES Final Result [facility] [address] [place] [address], [facility] RDWG [facility] [place] [address] [place] [phone] CNFL [facility] [address] [address] * (ABNORMAL) Urinalysis, with Microscopic: Urine, Midstream (06/04/2024 7:52 AM CDT) Source Urine, Urine, Midstream 06/04/2024 7:52 AM CDT CNFL Clarity Clear Clear 06/04/2024 7:58 AM CDT CNFL Color Yellow 06/04/2024 7:58 AM CDT CNFL Comment: ----REFERENCE VALUE---- Colorless Yellow Faith Blood Negative Negative 06/04/2024 7:58 AM CDT CNFL Nitrite Negative Negative 06/04/2024 7:58 AM CDT CNFL Leukocyte Esterase Negative Negative 06/04/2024 7:58 AM CDT CNFL Protein Negative mg/dL 06/04/2024 7:58 AM CDT CNFL Comment: ----REFERENCE VALUE---- Negative Trace Glucose Negative Negative mg/dL 06/04/2024 7:58 AM CDT CNFL Ketones, QI(U) Trace(A) Negative mg/dL 06/04/2024 7:58 AM CDT CNFL Bilirubin Negative Negative 06/04/2024 7:58 AM CDT CNFL pH 5.5 5.0 - 8.0 06/04/2024 7:58 AM CDT CNFL Specific [place] 1.010 1.001 - 1.035 06/04/2024 7:58 AM CDT CNFL Urobilinogen 0.2 0.2 - 1.0 mg/dL 06/04/2024 7:58 AM CDT CNFL White Blood Cells None Seen /hpf 06/04/2024 8:19 AM CDT CNFL Comment: ----REFERENCE VALUE---- Males: 0-3 Females: 0-10 Unknown: 0-10 Red Blood Cells None Seen 0 - 2 /hpf 8:19 AM CDT CNFL Dysmorphic Red Blood Cells <=25 <=25 % 06/04/2024 8:19 AM CDT CNFL Squamous Cells None Seen /hpf 06/04/2024 8:19 AM CDT CNFL Bacteria Present(A) None Seen 06/04/2024 8:19 AM CDT CNFL Urine (Urine, Midstream) 06/04/2024 7:52 AM CDT 06/04/2024 7:52 AM CDT Josette Hannon M.D. LAB URINE ORDERABLES Final Result [facility] [address] [place] [address], [facility] CNFL [place] [address] * BKV DNA Detect/Quant (06/04/2024 7:45 AM CDT) BKV DNA Detect/Quant, P Undetected Undetected IU/mL 06/05/2024 2:54 PM CDT [facility] Comment: Result in log IU/mL is Undetected. ----ADDITIONAL INFORMATION---- The quantification range of this assay is 22 to 100,000,000 IU/mL (1.34 log to 8.00 log IU/mL). Testing was performed using the tosin BKV test ([employer] Blood (Blood, Venous) 06/04/2024 7:45 AM CDT 06/04/2024 8:54 PM CDT Josette Hannon M.D. LAB MICROBIOLOGY - BLOOD O RDERABLES Final Result Performing Organization Address City/[facility] Co de Phone Number [facility] [address] [place] [address] [facility] [address] [place] [address] [place] [address] * HLA Class I/II Combined cPRA, Serum (06/04/2024 7:45 AM CDT) Pathologist [facility] Class I/II Combined cPRA 0 Not Applicable 06/06/2024 11:07 AM CDT DBB8 Comment: ----ADDITIONAL INFORMATION---- Calculated PRA (cPRA) is the percentage of donors expected to have HLA antigens listed as unacceptable for a candidate on the waiting list. Unacceptable antigens include serologic equivalents that have a normalized Mean Fluorescence Intensity (MFI) >= 2000 and antigens that demonstrate Prozone Phenomenon. The cPRA is calculated based on the HLA frequencies published by UNOS/OPTN listed here: http://optn.transplant.hrsa.gov CLIA: [id number] CLIA Superintendent Transmission: BIANKA ORO,Ph.D. Combined cPRA Specificities NONE 06/06/2024 11:07 AM CDT DBB8 Blood 06/04/2024 7:45 AM CDT 06/05/2024 7:56 AM CDT Josette Hannon M.D. LAB HLA ORDERABLES Final R esult Performing Organization Address City/[facility]/ZIP Co de Phone Number [facility] [address] [place] [address], [facility] DBB8 [facility] [address] [place] [address] * (ABNORMAL) Lipid Panel (06/04/2024 7:45 AM CDT) Pathologist [facility] Triglycerides 131 mg/dL 06/04/2024 8:11 AM CDT CNFL Comment: ----REFERENCE VALUE---- Normal: <150 mg/dL Borderline High: 150-199 mg/dL High: 200-499 mg/dL Very High: > or =500 mg/dL Cholesterol, Total 171 mg/dL 2023 8:11 AM CDT CNFL Comment: ----REFERENCE VALUE---- Desirable: < 200 mg/dL Borderline High: 200 - 239 mg/dL High: > or = 240 mg/dL Cholesterol, LDL, Calculated 109 mg/dL 06/04/2024 8:11 AM CDT CNFL Comment: ----REFERENCE VALUE---- Desirable: <100 mg/dL Above Desirable: 100-129 mg/dL Borderline High: 130-159 mg/dL High: 160-189 mg/dL Very High: >=190 mg/dL ----ADDITIONAL INFORMATION---- LDL cholesterol calculated using the Siddiqui/NIH equation. Cholesterol, HDL 38(L) >=40 mg/dL 06/04/20 8:11 AM CDT CNFL Cholesterol, Non-HDL, Calculated 133 mg/dL 06/04/2024 8:11 AM CDT CNFL Comment: ----REFERENCE VALUE---- Desirable: <130 mg/dL Above Desirable: 130-159 mg/dL Borderline High: 160-189 mg/dL High: 190-219 mg/dL Very High: > or =220 mg/dL Fasting (8 HR or more) Yes 06/04/2024 7:47 AM CDT CNFL Blood (Blood, Venous) 06/04/2024 7:45 AM CDT 06/04/2024 7:48 AM CDT us Josette Hannon M.D. LAB BLOOD ADD-ON Final Res ult [facility] [address] [place] [address], [facility] [address] [address] * (ABNORMAL) Mycophenolic Acid (06/04/2024 7:45 AM CDT) Mycophenolic Acid 2.2 1.0 - 3.5 mcg/mL 06/05/2024 11:02 AM CDT SDS MPA Glucuronide 31(L) 35 - 100 mcg/mL 06/05/2024 11:02 AM CDT [facility] Comment: ----ADDITIONAL INFORMATION---- Target steady-state trough concentrations vary depending on the type of transplant, concomitant immunosuppression, clinical/institutional protocols, and time post-transplant. Results should be interpreted in conjunction with this clinical information and any physical signs/symptoms of rejection/toxicity. Testing performed by Liquid Chromatography-Tandem Mass Spectrometry (LC-MS/MS). This test was developed and its performance characteristics determined by [facility] in a manner consistent with CLIA requirements. This test has not been cleared or approved by the U.S. Food and Drug Administration. Blood (Blood, Venous) 06/04/2024 7:45 AM CDT 06/05/2024 7:33 AM CDT Josette Hannon M.D. LAB BLOOD NON ADD-ON Final Result [facility] [address] [place] [address] [facility] [address] [place] [address] [place] [address] * HLA Class II SAB Antibody Screen (06/04/2024 7:45 AM CDT) [facility] Class II SAB Overall Result Negative Not Applicable 06/06/2024 10:45 AM CDT DBB8 Class II SAB Comment No DSA obsvd. 06/06/2024 10:45 AM CDT DBB8 Class II SAB >=5000 MFI NONE 06/06/2024 10:45 AM CDT DBB8 Class II SAB [id number] MFI NONE 06/06/2024 10:45 AM CDT DBB8 Class II SAB 500-1999 MFI NONE 06/06/2024 10:45 AM CDT DBB8 SAB DRB1 Specificity NONE 06/06/2024 10:45 AM CDT DBB8 SAB [id number] Specificity NONE 06/06/2024 10:45 AM CDT DBB8 SAB DQB1 Specificity NONE 06/06/2024 10:45 AM CDT DBB8 SAB DPB1 Specificity NONE 06/06/2024 10:45 AM CDT DBB8 Comment: ----ADDITIONAL INFORMATION---- Method: Luminex Flow Cytometry CLIA: [id number] CLIA Superintendent Transmission: BIANKA ORO,Ph.D. Blood (Blood, Venous) 06/04/2024 7:45 AM CDT 06/05/2024 7:56 AM CDT Josette Hannon M.D. LAB HLA ORDERABLES Final R esult [facility] [address] [place] [address], [facility] DBB8 [facility] [address] [place] [address] * HLA Class I SAB Antibody Screen (06/04/2024 7:45 AM CDT) Class I SAB Overall Result Positive Not Applicable 06/06/2024 7:36 AM CDT DBB8 Class I SAB Comment No DSA obsvd. 06/06/2024 7:36 AM CDT DBB8 Class I SAB >=5000 MFI NONE 06/06/2024 7:36 AM CDT DBB8 Class I SAB [id number] MFI NONE 06/06/2024 7:36 AM CDT DBB8 Class I SAB 500-1999 MFI see below 06/06/2024 7:36 AM CDT DBB8 Comment:B:8 SAB A Specificity NONE 06/06/2024 7:36 AM CDT DBB8 SAB B Specificity see below 06/06/2024 7:36 AM CDT DBB8 Comment: 8(08:01)[1446] Format: Serologic Eq.(B Mol. Allele)[Normalized MFI] NOTE: Data is displayed in descending order by Mean Fluorescence Intensity (MFI). Serologic equivalents can be displayed multiple times for different molecular alleles. SAB C Specificity NONE 06/06/2024 7:36 AM CDT DBB8 Comment: ----ADDITIONAL INFORMATION---- Method: Luminex Flow Cytometry CLIA: [id number] CLIA Superintendent Transmission: BIANKA ORO,Ph.D. Blood (Blood, Venous) 06/04/2024 7:45 AM CDT 06/05/2024 7:56 AM CDT Josette Hannon M.D. LAB HLA ORDERABLES Final R esult Performing Organization Address [facility] Co de Phone Number [facility] [address] [place] [address], [facility] DBB8 [facility] [address] [place] [address] * Tacrolimus, Trough (06/04/2024 7:45 AM CDT) Tacrolimus, Trough 6.4 5.0-15.0 (Trough) ng/mL 06/05/2024 10:15 AM CDT [facility] Comment: ----ADDITIONAL INFORMATION---- Target steady-state trough concentrations vary depending on the type of transplant, concomitant immunosuppression, clinical/institutional protocols, and time post-transplant. Results should be interpreted in conjunction with this clinical information and any physical signs/symptoms of rejection/toxicity. Testing performed by Liquid Chromatography-Tandem Mass Spectrometry (LC-MS/MS). This test was developed and its performance characteristics determined by [facility] in a manner consistent with CLIA requirements. This test has not been cleared or approved by the U.S. Food and Drug Administration. Blood (Blood, Venous) 06/04/2024 7:45 AM CDT 06/05/2024 7:07 AM CDT us Josette Hannon M.D. LAB BLOOD NON ADD-ON Final Result Performing Organization Address City/[facility] Co de Phone Number [facility] [address] [place] [address] [facility] [address] [place] [address] [place] [address] * 25-Hydroxyvitamin D2 and D3 (06/04/2024 7:45 AM CDT) 25-Hydroxy D2 <4.0 ng/mL 06/05/2024 4:11 PM CDT SDSC 25-Hydroxy D3 38 ng/mL 06/05/2024 4:11 PM CDT SDSC 25-Hydroxy D Total 38 ng/mL 2023 4:11 PM CDT [facility] Comment: ----REFERENCE VALUE---- 25-HYDROXY D TOTAL (D2+D3) Optimum levels in the healthy population are 20-50. ----ADDITIONAL INFORMATION---- This test was developed and its performance characteristics determined by [facility] in a manner consistent with CLIA requirements. This test has not been cleared or approved by the U.S. Food and Drug Administration. Blood (Blood, Venous) 06/04/2024 7:45 AM CDT 06/05/2024 7:22 AM CDT us Josette Hannon M.D. LAB BLOOD ADD-ON Final Res ult [facility] [address] [place] [address] [facility] [address] [place] [address] [place] [address] * (ABNORMAL) CBC with Differential, Blood (06/04/2024 7:45 AM CDT) [facility] Hemoglobin 14.0 13.2 - 16.6 g/dL 06/04/2024 8:02 AM CDT CNFL Hematocrit 41.1 38.3 - 48.6 % 06/04/2024 8:02 AM CDT CNFL Erythrocytes 4.31(L) 4.35 - 5.65 x10(12)/L 06/04/2024 8:02 AM CDT CNFL MCV 95.4 78.2 - 97.9 fL 06/04/2024 8:02 AM CDT CNFL RBC Distrib Width 12.8 11.8 - 14.5 % 06/04/2024 8:02 AM CDT CNFL Platelet Count 160 135 - 317 x10(9)/L 06/04/2024 8:02 AM CDT CNFL Leukocytes 4.1 3.4 - 9.6 x10(9)/L 06/04/2024 8:02 AM CDT CNFL Neutrophils 3.03 1.56 - 6.45 x10(9)/L 06/04/2024 8:02 AM CDT CNFL Lymphocytes 0.68(L) 0.95 - 3.07 x10(9)/L 06/04/2024 8:02 AM CDT CNFL Monocytes 0.35 0.26 - 0.81 x10(9)/L 06/04/2024 8:02 AM CDT CNFL Eosinophils <0.04 0.03 - 0.48 x10(9)/L 06/04/2024 8:02 AM CDT CNFL Basophils <0.04 0.01 - 0.08 x10(9)/L 06/04/2024 8:02 AM CDT CNFL Blood (Blood, Venous) 06/04/2024 7:45 AM CDT 06/04/2024 7:48 AM CDT Josette Hannon M.D. LAB BLOOD ADD-ON Final Res ult Performing Organization Address City/[facility]/ZIP Co de Phone Number [facility] [address] [place] [address], [place] [address] * Phosphorus Inorganic (06/04/2024 7:45 AM CDT) Phosphorus (Inorganic), P 3.0 2.5 - 4.5 mg/dL 06/04/2024 8:11 AM CDT CNFL Blood (Blood, Venous) 06/04/2024 7:45 AM CDT 06/04/2024 7:48 AM CDT Josette Hannon M.D. LAB BLOOD ADD-ON Final Res ult [facility] [address] [place] [address], [place] [address] * (ABNORMAL) Parathyroid Hormone (PTH) (06/04/2024 7:45 AM CDT) Parathyroid Hormone (PTH), S 89(H) 15 - 65 pg/mL 06/04/2024 1:42 PM CDT RDW Comment: Biotin has been identified by the clinical program coordinator as a potential interfering substance. Higher concentrations of biotin may be found in multivitamins, hair/nail supplements, and workout supplements. If the result does not match clinical observations, repeat testing after patient refrains from the use of supplements for at least 12 hours. Blood (Blood, Venous) 06/04/2024 7:45 AM CDT 06/04/2024 1:06 PM CDT Josette Hannon M.D. LAB BLOOD ADD-ON Final Res ult [facility] [address] [place] [address], [facility] RDWG [facility] [place] [address] [place] [phone] * Magnesium (06/04/2024 7:45 AM CDT) Magnesium, P 2.2 1.7 - 2.3 mg/dL 06/04/2024 8:11 AM CDT CNCT Blood (Blood, Venous) 06/04/2024 7:45 AM CDT 06/04/2024 7:48 AM CDT Josette Hannon M.D. LAB BLOOD ADD-ON Final Res ult [facility] [address] [place] [address], [place] CNFL [facility] [address] [address] * (ABNORMAL) Hemoglobin A1c (06/04/2024 7:45 AM CDT) Hemoglobin A1c, B 6.0(H) 4.2 - 5.6 % 06/04/2024 8:02 AM CDT [facility] Comment: Hemoglobin A1c values of 5.7-6.4 percent indicate an increased risk for developing diabetes mellitus. In diabetic patients, HbA1c goals should be discussed with healthcare provider. Blood (Blood, Venous) 06/04/2024 7:45 AM CDT 06/04/2024 7:48 AM CDT us Josette Hannon M.D. LAB BLOOD ADD-ON Final Res ult [facility] [address] [place] [address], [facility] CNFL [place] [address] * (ABNORMAL) Comprehensive Metabolic Panel (06/04/2024 7:45 AM CDT) Potassium, P 4.7 3.6 - 5.2 mmol/L 06/04/2024 8:11 AM CDT CNFL Sodium, P 140 135 - 145 mmol/L 06/04/2024 8:11 AM CDT CNFL Chloride, P 106 98 - 107 mmol/L 06/04/2024 8:11 AM CDT CNFL Bicarbonate, P 23 22 - 29 mmol/L 06/04/2024 8:11 AM CDT CNFL Anion Gap, P 11 7 - 15 06/04/2024 8:11 AM CDT CNFL BUN (Blood Urea Nitrogen), P 29(H) 8 - 24 mg/dL 06/04/2024 8:11 AM CDT CNFL Creatinine 1.65(H) 0.74 - 1.35 mg/dL 06/04/2024 8:11 AM CDT CNFL Estimated GFR (eGFR) 48(L) >=60 mL/min/BS A 06/04/2024 8:11 AM CDT CNFL Comment: Estimated GFR calculated using the 2020 CKD_EPI creatinine equation. Calcium, Total, P 9.8 8.6 - 10.0 mg/dL 06/04/2024 8:11 AM CDT CNFL Glucose, P 121 70 - 140 mg/dL 06/04/2024 8:11 AM CDT CNFL Protein, Total, P 6.9 6.3 - 7.9 g/dL 06/04/2024 8:11 AM CDT CNFL Albumin, P 4.4 3.5 - 5.0 g/dL 06/04/2024 8:11 AM CDT CNFL Aspartate Aminotransferase (AST), P 21 8 - 48 U/L 06/04/2024 8:11 AM CDT CNFL Alkaline Phosphatase, P 33(L) 40 - 129 U/L 06/04/2024 8:11 AM CDT CNFL Alanine Aminotransferase (ALT), P 16 7 - 55 U/L 06/04/2024 8:11 AM CDT CNFL Bilirubin, Total, P 0.5 0.0 - 1.2 mg/dL 06/04/2024 8:11 AM CDT CNFL Blood (Blood, Venous) 06/04/2024 7:45 AM CDT 06/04/2024 7:48 AM CDT Josette Hannon M.D. LAB BLOOD ADD-ON Final Res ult [facility] [address] [place] [address], [facility] CNFL [facility] [address] [address] * Protein, Total, 24 hour, Urine (06/04/2024 6:40 AM CDT) Total Protein, 24 HR, U 164 <229 mg/24 h 06/11/2024 5:44 PM CDT DTL Collection Duration 24 h 06/11/2024 1:28 PM CDT DTL Urine Volume 2725 mL 06/11/2024 1:28 PM CDT DTL Urine (Urine, 24 Hours) 06/04/2024 6:40 AM CDT 06/11/2024 1:28 PM CDT us Josette Hannon M.D. LAB URINE ORDERABLES Final Result [facility] [address] [place] [address], [place] DTL [facility] [address] [place] [address] * Albumin, 24 hour Collection, Urine (06/04/2024 6:40 AM CDT) Albumin, 24 Hr, U <14 <30 mg/24 h 06/11/2024 3:09 PM CDT DTL Comment: ----ADDITIONAL INFORMATION---- This test has been modified from the clinical program coordinator's instructions. Its performance characteristics were determined by [facility] in a manner consistent with CLIA requirements. This test has not been cleared or approved by the U.S. Food and Drug Administration. Collection Duration 24 h 06/11 1:28 PM CDT DTL Urine Volume 2725 mL 06/11/2024 1:28 PM CDT DTL Albumin Excretion Rate <9 <20 mcg/min 06/11/2024 3:09 PM CDT DTL Urine (Urine, 24 Hours) 06/04/2024 6:40 AM CDT 06/11/2024 2:08 PM CDT Josette Hannon M.D. LAB URINE ORDERABLES Final Result [facility] [address] [place] [address], [facility] [address] [place] [address] * Colonoscopy (11/03/2013 2:40 PM CLINICAL INVESTIGATOR) 11/03/2013 2:40 PM CLINICAL INVESTIGATOR Historical Provider GI PROCEDURE ORDERABLES Carmella l Result [facility] [address] [id number], [facility] from Last 3 Months or Most Recently Relevant to Health Maintenance Additional Health Concerns Infection Onset Date Last Indicated Protective Environment 01/03/2023 3 Insurance [facility] Advance Directives For more information, please contact: [phone] Documents on File Type Date Recorded Patient Flux Mixer Expl anation Advance Directives 10/15/2019 9:33 AM [facility]al [facility] Care Directive Advance Directives 11/30/2010 12:00 AM [place] document. See document viewer. Healthcare Agents on File Name Relationship Healthcare Agent [facility] Communication Ammarla Humberto Spouse Health Care Agent Guido Morocho First Alternate Health Care Agent Jose Raul Morocho Second Alternate Health Care Agent Care Teams Edge Plugger Relationship Specialty Start Date End Date Elsewhere, Pcp PCP - General Internal Medicine 05/02/22 [facility] [address] [place], [place] [address] Laboratory Medicine 07/19/20
--- OUTSIDE RECORDS SUMMARY | 2024-09-02 08:12 | XMS_ITS | Clinical Summary ---
Author Organization [employer] Address [place], [place] [address] Care Team Providers Care Home Demonstrator Name Role Phone Jhoan Carmen MD Primary Care Provider Allergies No known active allergies Medications OMEGA 3-6-9 40 MG-60 MG-10 UNIT CAP [...] Active calcium carbonate-vit D3, 600 mg-400 units, (CALCIUM-VITAMI N D) tablet Take 1 tablet by mouth 2 times daily with meals. 0 06/30/2015 Active atorvastatin (LIPITOR) 20 mg tablet Take 1 tablet by mouth once daily. 0 04/24/2017 Active tacrolimus (PROGRAF) 1 mg capsule Take 2 mg by mouth. 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 Gender Identity Not on file Sexual Orientation Not on file Obstetrics History Last Filed Vital Signs Vital Sign Reading Time Taken Comments Blood Pressure 131/84 01/04/2021 2:44 PM CDT Pulse 72 01/04/2021 2:44 PM CDT Temperature 36.5 C (97.7 F) 06/30/2015 1:15 PM CDT Respiratory Rate - [...] of 2) 2016 COVID-19 vaccine series ( - 2023-25 season) 2024 Influenza for age 50-64 05/25/2024 09/14/20 09, 07/08/2009, 07/20/2008 Pneumococcal series for age 6-64 Aged Out 09/14/2008, 11/30/1999 No longer eligible based on patient's age to complete this topic Insurance [facility] Care Teams Home Demonstrator Relationship Specialty Start Date End Date Jhoan Carmen MD [address] [place] [address] PCP - General 01/30/06
--- OUTSIDE RECORDS SUMMARY | 2024-09-02 08:13 | XMS_ITS | Encounter Summary ---
Author Organization [facility] Address [address] [place] [address] Care Team Providers Care Manager Behavior Name Role Phone Elsewhere, Pcp Primary Care Provider Unavailabl e Encounter Details Date Type Department Care Team (Latest Contact Info) Description 06/12/2024 Clinical Communication Joey Ferrer [facility] Reg[facility] in [place], [place] [address] [place] [address] Linda Lala R.N., C.C.T.C. [address] [place] [address] Social History Tobacco Use Types Packs/Day Years [...] Date Recorded Dental: Regular Dentist Unknown 05/12/20 Employment Answer Date Recorded Employment status Employed and actively working without restrictions 05/12/2021 Education Answer Date Recorded What is the highest level of school you have completed or the highest degree you have received? 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 [address] [place] [phone] 2024 10:30 AM CARPET CLEANER Office Visit Joey Gordillo [place] [facility] Clinical Regeneration in [place], [place] [address] [place] [address] Josette Hannon M.D. [address] [place] [address] documented as of this encounter Visit Diagnoses Not on filedocumented in this encounter Additional Health Concerns Infection Onset Date Last Indicated Resolved Time Protective Environment 01/03/2023 01/03/2023 Assessment Noted Time PHQ-9 Depression Total Score: 0 07/17/20 17 1:08 PM CDT documented as of this encounter Care Teams Manager Behavior Relationship Specialty Start Date End Date Elsewhere, Pcp PCP - General Internal Medicine 05/02/22 [facility] [address] [place], [place] [address] Laboratory Medicine 07/19/20 documented as of this encounter
--- OUTSIDE RECORDS SUMMARY | 2024-09-02 08:13 | XMS_ITS | Encounter Summary ---
Author Organization [facility] Address [address] [place] [address] Care Team Providers Care Tour Escort Name Role Phone Elsewhere, Pcp Primary Care Provider Unavailabl e Encounter Details Date Type Department Care Team (Latest Contact Info) Description 06/09/2024 2:10 PM CDT - 06/09/2024 11:59 PM CDT Hospital Encounter Department of Laboratory Medicine and Pathology, [facility] in [place], [place] [address] [place] [address] Mac Yi, MILI, C.N.P., M.S.N. [address] [place] [phone] Transplant Renal (HCC) Discharge Disposition: Home or [...] [facility] ional [facility] - Occupational Stress Questionnaire Answer Date Recorded [...] Master's degree (e.g., MA, MS, Young, MEd, CHAIRMAN, ERNIE) 05/08/2019 Sex and Gender Information Value Date Recorded Sex Assigned at Male 05/27/2018 8:52 AM CDT Legal Sex Male 7:01 PM SILVERING DEPARTMENT SUPERVISOR Gender Identity Male 05/27/2018 8:52 AM CDT Sexual Orientation Straight 05/27/2018 8: 52 AM CDT documented as of this encounter Medications at Time of Discharge atorvastatin (LIPITOR) 40 mg tablet Take 1 tablet (40 mg total) by mouth daily. 90 tablet 3 08/30/2023 calcium carbonate-vit D3-min 600 mg calcium- 400 unit tablet Take 1 tablet by mouth 2 (two) times a day. 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 omega-3 fatty acids-fish oil 300-1,000 mg per capsule Take 1 capsule by mouth daily. 05/23/2016 predniSONE (Deltasone) 1 mg tabletIndications :Transplant Renal (HCC) Take 4 tablets (4 mg total) by mouth daily. 120 tablet 11 06/05/2024 5 tacrolimus (PROGRAF) 1 mg capsuleIndication s:Transplant Renal (HCC) Take 2 capsules (2 mg total) by mouth every morning AND 1 capsule (1 mg total) every evening. 270 capsule 3 11/08/2023 blood-glucose sensor (FreeStyle Emeka 3 Sensor) device 1 each as directed. Change every 14 days for continuous glucose monitoring. 9 each 3 06/27/2023 4 mycophenolate (CELLCEPT) 250 mg capsuleIndication s:Transplant Renal (HCC) TAKE 2 CAPSULES BY MOUTH IN THE MORNING AND 1 CAPSULE BY MOUTH IN THE PM TEVA BRAND 270 capsule 3 06/20/2023 4 documented as of this encounter Plan of Treatment Upcoming Encounters Date Type Department Care Team (Late st Contact Info) Description 2024 9:00 AM SILVERING DEPARTMENT SUPERVISOR Appointment Department of Radiology, [facility], in [place], [place] [address] [place] [address] Elio Churchill M.D. [address] [place] [phone] 2024 10:30 AM SILVERING DEPARTMENT SUPERVISOR [facility] in [place], [place] [address] [place] [address] Josette Hannon M.D. [address] [place] [phone] Scheduled Orders Name Type Priority Associated Diagnoses Orde r Schedule Tacrolimus, Trough Lab Routine Transplant Renal (HCC) Once for 1 Occurrences starting 06/09/2024 until 06/09/2024 documented as of this encounter Visit Diagnoses Diagnosis Transplant Renal (HCC) documented in this encounter Additional Health Concerns Infection Onset Date Last Indicated Resolved Time Protective Environment 01/03/2023 01/03/2023 Assessment Noted Time PHQ-9 Depression Total Score: 0 07/17/20 17 1:08 PM CDT documented as of this encounter Care Teams Tour Escort Relationship Specialty Start Date End Date Elsewhere, Pcp PCP - General Internal Medicine 05/02/22 [facility] [address] [place], [place] [address] Laboratory Medicine 07/19/20 documented as of this encounter
--- OUTSIDE RECORDS SUMMARY | 2024-09-02 08:13 | XMS_ITS | Encounter Summary ---
Author Organization [facility] Address [address] [place] [address] Care Team Providers Care Older Adult Social Work Specialist Name Role Phone Elsewhere, Pcp Primary Care Provider Unavailabl e Reason for Visit * Reason Comments Med Refill Encounter Details Date Type Department Care Team (Late st Contact Info) Description 06/17/2024 Refill Joey Ferrer [facility] for Trans[facility] and Clinical Regeneration in [place], [place] [address] [place] [phone] Nasra Montalvo APRN, C.N.P., D.N.P. [address] [place] [phone] Med Refill Social History Tobacco Use Types [...] week 05/12/2021 How often do you attend [facility] or mormon services? Never 05/12/2021 Do you belong to any clubs o r organizations such as yazdanism groups, unions, fraternal or athletic [...] Answer Date Recorded PHQ-2 Score 0 02/27/2019 [facility] of Occupat ional Health - [...] Master's degree (e.g., MA, MS, Young, MEd, CUSTOMER CARE REPRESENTATIVE, ERNIE) 05/08/2019 Sex and Gender Information Value Date Recorded Sex Assigned at Male 05/27/2018 8:52 AM CDT Legal Sex Male 7:01 PM SPOUTING INSTALLER Gender Identity Male 05/27/2018 8:52 AM CDT Sexual Orientation Straight 05/27/2018 8: 52 AM CDT documented as of this encounter Plan of Treatment Upcoming Encounters Date Type Department Care Team (Late st Contact Info) Description 2024 9:00 AM SPOUTING INSTALLER Appointment Department of Radiology, [facility], in [place], [place] [address] [place] [address] Elio Churchill M.D. [address] [place] [address] 2024 10:30 AM SPOUTING INSTALLER [facility] in [place], [place] [address] [place] [address] Josette Hannon M.D. [address] [place] [address] documented as of this encounter Visit Diagnoses Diagnosis Transplant Renal (HCC) documented in this encounter Additional Health Concerns Infection Onset Date Last Indicated Resolved Time Protective Environment 01/03/2023 01/03/2023 Assessment Noted Time PHQ-9 Depression Total Score: 0 07/17/20 17 1:08 PM CDT documented as of this encounter Care Teams Older Adult Social Work Specialist Relationship Specialty Start Date End Date Elsewhere, Pcp PCP - General Internal Medicine 05/02/22 [facility] [address] [place], [place] [address] Laboratory Medicine 07/19/20 documented as of this encounter
--- OUTSIDE RECORDS SUMMARY | 2024-09-02 08:13 | XMS_ITS ---
Author Organization [facility] Address [address] [place] [address] Care Team Providers Care Solderer Barrel Ribs Name Role Phone Unavailable Unavailable Unavailable Surgery Details Not on file Complications Check Surgery Details section. Procedure Estimated Blood Loss Check Surgery Details section. Procedure Findings Check Surgery Details section. Procedure Specimens Taken Check Surgery Details section.
--- OUTSIDE RECORDS SUMMARY | 2024-09-02 08:13 | XMS_ITS | Encounter Summary ---
Author Organization [facility] Address [address] [place] [address] Care Team Providers Care Electric Sign Wirer Name Role Phone Elsewhere, Pcp Primary Care Provider Unavailabl e Reason for Visit * Reason Comments Med Refill Encounter Details Date Type Department Care Team (Late st Contact Info) Description 06/17/2024 Refill Division of Nephrology and Hypertension in [place], [place] [address] [place] [phone] Rah Soliz M.D. [address] [place] [phone] Med Refill Social History Tobacco Use Types [...] How often do you attend chur or nondenominational services? Never 05/12/2021 Do you belong to any clubs o r organizations such as roman catholic groups, unions, fraternal or [...] Answer Date Recorded PHQ-2 Score 0 02/27/2019 [facility] of Occupat ional [facility] - Occupational Stress Questionnaire Answer Date [...] Master's degree (e.g., MA, MS, Young, MEd, STRATEGY PLANNING CONSULTANT, ERNIE) 05/08/2019 Sex and Gender Information Value Date Recorded Sex Assigned at Male 05/27/2018 8:52 AM CDT Legal Sex Male 7:01 PM VISUAL LEAD Gender Identity Male 05/27/2018 8:52 AM CDT Sexual Orientation Straight 05/27/2018 8: 52 AM CDT documented as of this encounter Plan of Treatment Upcoming Encounters Date Type Department Care Team (Late st Contact Info) Description 2024 9:00 AM VISUAL LEAD Appointment Department of Radiology, [facility], in [place], [place] [address] [place] [address] Elio Churchill M.D. [address] [place] [phone] 2024 10:30 AM VISUAL LEAD [facility] in [place], [place] [address] [place] [address] Josette Hannon M.D. [address] [place] [phone] documented as of this encounter Visit Diagnoses Diagnosis Hyperglycemia- Primary documented in this encounter Additional Health Concerns Infection Onset Date Last Indicated Resolved Time Protective Environment 01/03/2023 01/03/2023 Assessment Noted Time PHQ-9 Depression Total Score: 0 07/17/20 17 1:08 PM CDT documented as of this encounter Care Teams Electric Sign Wirer Relationship Specialty Start Date End Date Elsewhere, Pcp PCP - General Internal Medicine 05/02/22 [facility] [address] [place], [place] [address] Laboratory Medicine 07/19/20 documented as of this encounter
--- OUTSIDE RECORDS SUMMARY | 2024-09-02 08:13 | XMS_ITS | Referral Summary ---
Author Organization [facility] Address [address] [place] [address] Care Team Providers Care Management Development Specialist Name Role Phone Elsewhere, Pcp Primary Care Provider Unavailabl e Source Comments Patient records contain information from all sites at [facility]. For routine questions regarding patient records, call [phone] during business hours, M-F 8:00 AM - 5:00 PM Central Time. Record requests for emergency care only can be directed to [phone] at any time.[facility] Encounters Date Type Department Care Team Description 06/19/2024 Orders Only Division of Endocrinology in [place], [place] [address] [place] [address] Elio Churchill M.D. 06/17/2024 [facility]ill [facility] in [place], [place] [address] [place] [address] Nasra Montalvo APRN, C.N.P., D.N.P. Med Refill 06/17/2024 Refill Division of Nephrology and Hypertension in [place], [place] [address] [place] [address] Rah Soliz M.D. Med Refill 06/12/2024 Clinical Communication [facility] Transplantation and Clinical Regeneration in [place], [place] [address] [place] [phone] Linda Lala R.N., C.C.T.C. 06/09/2024 2:10 PM CDT - 06/09/2024 11:59 PM CDT Hospital Encounter Department of Laboratory Medicine and Pathology, [place], [place] [address] [place] [phone] Mac Yi APRN C.N.P., M.S.N. Transplant Renal (HCC) Discharge Disposition: Home or Self Care 06/05/2024 3:09 PM CDT - 06/05/2024 11:59 PM CDT Hospital Encounter Department of Laboratory Medicine and Pathology, [place], [place] [address] [place] [phone] Josette Hannon M.D. Chronic Kidney Disease Stage 4 Glomerular Filtration Rate 15-29 (HCC) Discharge Disposition: Home or Self Care 06/05/2024 2:18 PM CDT - 06/05/2024 3:08 PM CDT Hospital Encounter Department of Laboratory Medicine and Pathology, [place], [place] [address] [place] [phone] Josette Hannon M.D. Transplant Renal (HCC) Discharge Disposition: Home or Self Care 06/05/2024 Orders Only [facility] Transplantation and Clinical Regeneration in [place], [place] [address] [place] [phone] Mac Yi APRN, C.N.PKg, M.S.NKg Transplant Renal (HCC) 06/05/2024 9:04 AM CDT - 06/05/2024 9:34 AM CDT Hospital Encounter Department of Radiology, [place], [place] [address] [place] [address] Josette Hannon M.D. Transplant Renal (HCC) Discharge Disposition: Home or Self Care 06/05/2024 9:35 AM CDT - 06/05/2024 2:17 PM CDT Hospital Encounter Department of Laboratory Medicine and Pathology, [facility], in [place], [place] [address] [place] [address] Josette Hannon M.D. Transplant Renal (HCC) Discharge Disposition: Home or Self Care 06/05/2024 1:30 PM CDT Office Visit [facility] for Transplantation and Clinical Regeneration in [place], [place] [address] [place] [address] Josette Hannon M.D. Transplant Renal (HCC) (Primary Dx) 06/04/2024 7:31 AM CDT - 06/04/2024 11:59 PM CDT Hospital Encounter Department of Laboratory Medicine in [address] [phone] Josette Hannon M.D. Transplant Renal (HCC) Discharge Disposition: Home or Self Care 06/04/2024 7:30 AM CDT Hospital Encounter Department of Laboratory Medicine in [address] [phone] Josette Hannon M.D. Transplant Renal (HCC) Discharge Disposition: Home or Self Care from Last 3 Months Allergies Active Allergy [...] Date Recorded PHQ-2 Score 0 02/27/2019 [facility] - Occupational Stress [...] Master's degree (e.g., MA, MS, Young, MEd, CASING MATERIAL WEIGHER, ERNIE) 05/08/2019 Sex and Gender Information Value Date Recorded Sex Assigned at Male 05/27/2018 8:52 AM CDT Legal Sex Male 7:01 PM WASTEWATER TREATMENT ENGINEER Gender Identity Male 05/27/2018 8:52 AM CDT [...] st Contact Info) Description 2024 9:00 AM WASTEWATER TREATMENT ENGINEER Appointment Department of Radiology, [facility], in [place], [place] [address] [place] [address] Elio Churchill M.D. [address] [place] [phone] 2024 10:30 AM WASTEWATER TREATMENT ENGINEER Office Visit [facility] for Transplantation and Clinical Regeneration in [place], [place] [address] [place] [address] Josette Hannon M.D. [address] [place] [phone] Medical Devices Implanted Type Area Case Preparer And Liner Device Identifier Shelf Expiration Date Model / [...] Routine 06/05/2024 2:58 PM CDT Transplant Renal ([facility]) OXALATE, PLASMA Routine 06/05/2024 2:51 PM CDT Transplant Renal ([facility]) IOTHALAMATE, GLOMERULAR FILTRATION RATE, P Routine 06/05/2024 9:48 AM CDT BMD BONE DENSITY SPINE HIPS RAD - Routine (most inpatients and all outpatients) 06/05/2024 9:42 AM CDT Transplant Renal ([facility]) PROTEIN/CREATININE RATIO, RANDOM, URINE Routine 06/04/2024 7:52 AM CDT Transplant Renal ([facility]) ALBUMIN, RANDOM, U Routine 06/04/2024 7: 52 AM CDT Transplant Renal ([facility]) URINALYSIS WITH MICROSCOPIC Routine 06/04/2024 7:52 AM CDT Transplant Renal ([facility]) BACTERIAL CULTURE, AEROBIC + SUSC, URINE Routine 06/04/2024 7:52 AM CDT Transplant Renal ([facility]) HLA CLASS I/II COMBINED CPRA, SERUM Routine 06/04/2024 7:45 AM CDT HLA CLASS II SAB ANTIBODY SCREEN Routine 06/04/2024 7:45 AM CDT Transplant Renal ([facility]) HLA CLASS I SAB ANTIBODY SCREEN Routine 06/04/2024 7:45 AM CDT Transplant Renal ([facility]) PARATHYROID HORMONE (PTH), S Routine 06/04/2024 7:45 AM CDT Transplant Renal ([facility]) 25-HYDROXYVITAMIN D2 AND D3, S Routine 06/04/2024 7:45 AM CDT Transplant Renal ([facility]) MYCOPHENOLIC ACID, S Routine 06/04/2024 7:45 AM CDT Transplant Renal ([facility]) TACROLIMUS LEVEL, B Routine 06/04/2024 7 :45 AM CDT Transplant Renal (HCC) HEMOGLOBIN A1C, B Routine 06/04/2024 7:4 5 [...] Renal (HCC) COLONOSCOPY Routine 11/03/2013 2:40 PM WASTEWATER TREATMENT ENGINEER from Last 3 Months or Most Recently [...] developed and its performance characteristics determined by [facility] in a manner consistent with CLIA requirements. This test has not been cleared or approved by the U.S. Food and Drug Administration. Citrate Excretion, 24 HR, U 470 413 - 1191 mg/24 h 06/11/2024 11:15 AM CDT DTL Comment: ----ADDITIONAL INFORMATION---- This test was developed and its performance characteristics determined by [facility] in a manner consistent with CLIA requirements. This test has not been cleared or approved by the U.S. Food and Drug Administration. Oxalate, 24 HR, U (mmol/24 HR) 0.34 0.11 - 0.46 mmol/24 h 06/11/2024 3:15 PM CDT DTL Comment: ----ADDITIONAL INFORMATION---- This test was developed and its performance characteristics determined by [facility] in a manner consistent [...] This test has been modified from the sample worker's instructions. Its performance characteristics were determined by [facility] in a manner consistent [...] 7:00 AM CDT 06/11/2024 8:58 AM CDT us Josette Hannon M.D. LAB URINE ORDERABLES Final Result Performing Organization Address [facility] de Phone Number [facility] [address] [place] [address], [facility] 200 [place] [address] DT 200 [facility] 200 [place] [address] * ECG 12 Lead (06/05/2024 2:58 PM CDT) Ventricular Rate ECG/Min 73 BPM MUSE UT Interval 148 ms MUSE QRSD Interval 98 ms MUSE QT Interval 374 ms MUSE QTC Interval 412 ms MUSE P [place] 58 degrees MUSE R [place] 81 degrees MUSE T Wave [place] 28 degrees MUSE 06/05/2024 2:58 PM CDT [...] ORDERABLES Final Resu lt Performing Organization Address [facility] de Phone Number MUSE NA * Oxalate (06/05/2024 2:51 PM CDT) Oxalate, Plasma <1.5 <=2.0 mcmol/L 06/06/2024 2:37 PM CDT VAN Comment: ----ADDITIONAL INFORMATION---- This test has been modified from the sample worker's instructions. Its performance characteristics were determined by [facility] in a manner consistent with CLIA requirements. This test has not been cleared or approved by the U.S. Food and Drug Administration. Blood (Blood, Venous) 06/05/2024 2:51 PM CDT 06/05/2024 3:35 PM CDT Josette Hannon M.D. LAB BLOOD NON ADD-ON Final Result [facility] [address] [place] [address], [facility] [address] [place] [address] * (ABNORMAL) Iothalamate, Glomerular Filtration Rate (06/05/2024 9:48 AM CDT) Uncorrctd Iothal Cl 47 mL/min 06/06 10:00 AM CDT VAN Corrctd Iothal Cl 42(L) 69 - 123 mL/min/BS A 06/06/2024 10:00 AM CDT VAN Comment: ----ADDITIONAL INFORMATION---- This test was developed and its performance characteristics determined by [facility] in a manner consistent with CLIA requirements. This test has not been cleared or approved by the U.S. Food and Drug Administration. Blood (Blood, Venous) 06/05/2024 9:48 AM CDT 06/05/2024 12:08 PM CDT Narrative [facility] - 06/06/2024 10:00 AM CDT Specimen Information: Specimen ID: [id number] Specimen Collection Start Date: 06/05/2024 9:48 AM Specimen Received Date: 06/05/2024 12:08 PM Specimen ID: [id number] Specimen Collection Start Date: 06/05/2024 10:53 AM Specimen Received Date: 06/05/2024 12:08 PM Specimen ID: [id number] Specimen Collection Start Date: 06/05/2024 11:41 AM Specimen Received Date: 06/05/2024 12:08 PM Specimen ID: [id number] Specimen Collection Start Date: 06/05/2024 10:56 AM Specimen Received Date: 06/05/2024 12:08 PM Specimen ID: [id number] Specimen Collection Start Date: 06/05/2024 11:44 AM Specimen Received Date: 06/05/2024 12:08 PM Josette Hannon M.D. LAB BLOOD NON ADD-ON Final Result [facility] [address] [place] [address], [facility] [address] [place] [address] [place] [address] * BMD Bone Density Spine Hips (06/05/2024 9:42 AM CDT) Anatomical Region Laterality Modality Hip, Lumbar Spine, Nuclear M edicine RST LOS, Musculoskeletal ARZ LOS, Muskuloskeletal FLA LOS N/A Radio graphic Imaging Impressions 06/05/2024 11:10 AM CDT Osteoporosis DualFemur (region: Neck Right) Narrative 06/05/2024 11:10 AM CDT EXAM: BMD BONE DENSITY SPINE HIPS Bone Mineral Density (BMD) analysis performed on True StyleXA with serial number [id number]. COMPARISON: Serial Comparisons Left Total Hip results: [...] including images and graphs, is available in QREAStaff Ranker. In the absence of other causes of [...] Bone Mineral Density (BMD) analysis performed on [employer] with serialnumber [id number]. COMPARISON: Serial Comparisons Left Total Hip results: [...] IMPRESSION: Osteoporosis DualFemur (region: Neck Right) Josette Kukla M.D. IMG DXA PROCEDURES Final R esult * Bacterial Culture, Aerobic + Susceptibility, Urine (06/04/2024 7:52 AM CDT) Urine Culture No growth after 1 day of incubation. 06/05/2024 10:23 AM CDT ECLR Urine (Urine, Midstream) 06/04/2024 7:52 AM CDT 06/04/2024 3:15 PM CDT Comment:Specimen Source Site : Urine Josette Hannon M.D. LAB MICROBIOLOGY - GENERAL ORDERABLES Final Result Performing Organization Address City/[facility]/ZIP Co de Phone Number [facility] [address] [place] [address], [facility] ECLR [facility] [place] [address] * Albumin, Random, Urine (06/04/2024 7:52 AM [...] Hannon M.D. LAB URINE ORDERABLES Final Result [facility] [address] [place] [address], [facility] CNFL [facility] [place] in [address] [address] * Protein/Creatinine Ratio, Random, Urine (06/04/2024 7:52 AM CDT) Protein, Total, Random, U 4 mg/dL 06/04/2024 1:38 PM CDT RDWG Creatinine, Random, U 81 16 - 326 mg/dL 06/04/2024 8:09 AM CDT CNFL Protein/Creatin ine Ratio 0.05 <0.18 mg/mg 06/04/2024 1:38 PM CDT RDWG Urine (Urine, Midstream) 06/04/2024 7:52 AM CDT 06/04/2024 8:09 AM CDT Josette Hannon M.D. LAB URINE ORDERABLES Final Result Performing Organization Address City/State/[facility] Co de Phone Number [facility] [address] [place] [address], [facility] RDWG [facility] [place] in [place] [address] [place] [phone] CNFL [facility] [place] in [address] [address] * (ABNORMAL) Urinalysis, with Microscopic: Urine, Midstream [...] 8.0 06/04/2024 7:58 AM CDT CNFL Specific [place] 1.010 1.001 - 1.035 06/04/2024 7:58 AM [...] Hannon M.D. LAB URINE ORDERABLES Final Result [facility] [address] [place] [address], [facility] CNFL [facility] [place] in [address] [address] * BKV DNA Detect/Quant (06/04/2024 7:45 AM CDT) BKV DNA Detect/Quant, P Undetected Undetected IU/mL 06/05/2024 2:54 PM CDT [facility] Comment: Result in log IU/mL is Undetected. ----ADDITIONAL INFORMATION---- The quantification range of this assay is 22 to 100,000,000 IU/mL (1.34 log to 8.00 log IU/mL). Testing was performed using the tosin BKV test ([employer] Blood (Blood, Venous) 06/04/2024 7:45 AM CDT 06/04/2024 8:54 PM CDT Jostete Hannon M.D. LAB MICROBIOLOGY - BLOOD O RDERABLES Final Result Performing Organization Address City/[facility]/ZIP Co de Phone Number [facility] [address] [place] [address] [facility] [address] [place] [address] [place] [address] * HLA Class I/II Combined cPRA, Serum (06/04/2024 7:45 AM CDT) [facility] Class I/II Combined cPRA 0 Not Applicable [...] published by UNOS/OPTN listed here: http://optn.transplant.hrsa.gov CLIA: [id number] [employer] Microelectron[employer] Assembler: BIANKA ORO,Ph.D. Combined cPRA Specificities NONE 06/06/2024 11:07 AM CDT DBB8 Blood 06/04/2024 7:45 AM CDT 06/05/2024 7:56 AM CDT Josette Hannon M.D. LAB HLA ORDERABLES Final R esult Performing Organization Address City/[facility]/ZIP Co de Phone Number [facility] [address] [place] [address], [facility] DBB8 [facility] [address] [place] [address] * (ABNORMAL) Lipid Panel (06/04/2024 7:45 AM CDT) [facility] Triglycerides 131 mg/dL 06/04/2024 8:11 AM CDT [...] M.D. LAB BLOOD ADD-ON Final Res ult [facility] [address] [place] [address], [facility] CNFL [facility] [place] in [address] [address] * (ABNORMAL) Mycophenolic Acid (06/04/2024 7:45 AM CDT) Mycophenolic Acid 2.2 1.0 - 3.5 mcg/mL 06/05/2024 11:02 AM CDT SDSC MPA Glucuronide 31(L) 35 - 100 mcg/mL 06/05/2024 11:02 AM CDT SDSC Comment: ----ADDITIONAL INFORMATION---- Target steady-state trough concentrations vary depending on the type of transplant, concomitant immunosuppression, clinical/institutional protocols, and time post-transplant. Results should be interpreted in conjunction with this clinical information and any physical signs/symptoms of rejection/toxicity. Testing performed by Liquid Chromatography-Tandem Mass Spectrometry (LC-MS/MS). This test was developed and its performance characteristics determined by [facility] in a manner consistent with CLIA requirements. This test has not been cleared or approved by the U.S. Food and Drug Administration. Blood (Blood, Venous) 06/04/2024 7:45 AM CDT 06/05/2024 7:33 AM CDT Josette Hannon M.D. LAB BLOOD NON ADD-ON Final Result [facility] [address] [place] [address] [facility] [address] [place] [address] [place] [address] * HLA Class II SAB Antibody Screen (06/04/2024 7:45 AM CDT) Class II SAB Overall Result Negative Not Applicable 06/06/2024 10:45 AM CDT DBB8 Class II SAB Comment No DSA obsvd. 06/06/2024 10:45 AM CDT DBB8 Class II SAB >=5000 MFI NONE 06/06/2024 10:45 AM CDT DBB8 Class II SAB [id number] MFI NONE 06/06/2024 10:45 AM CDT DBB8 Class II SAB 500-1999 MFI NONE 06/06/2024 10:45 AM CDT DBB8 SAB DRB1 Specificity NONE 06/06/2024 10:45 AM CDT DBB8 SAB [id number] Specificity NONE 06/06/2024 10:45 AM CDT DBB8 SAB DQB1 Specificity NONE 06/06/2024 10:45 AM CDT DBB8 SAB DPB1 Specificity NONE 06/06/2024 10:45 AM CDT DBB8 Comment: ----ADDITIONAL INFORMATION---- Method: Luminex Flow Cytometry CLIA: [id number] [employer] Assembler: BIANKA ORO,Ph.D. Blood (Blood, Venous) 06/04/2024 7:45 AM CDT 06/05/2024 7:56 AM CDT Josette Hannon M.D. LAB HLA ORDERABLES Final R esult [facility] [address] [place] [address], [facility] DBB8 [facility] [address] [place] [address] * HLA Class I SAB Antibody Screen (06/04/2024 7:45 AM CDT) Class I SAB Overall Result Positive Not Applicable 06/06/2024 7:36 AM CDT DBB8 Class I SAB Comment No DSA obsvd. 06/06/2024 7:36 AM CDT DBB8 Class I SAB >=5000 MFI NONE 06/06/2024 7:36 AM CDT DBB8 Class I SAB [id number] MFI NONE 06/06/2024 7:36 AM CDT DBB8 [...] ----ADDITIONAL INFORMATION---- Method: Luminex Flow Cytometry CLIA: [id number] [employer] Assembler: BIANKA ORO,Ph.D. Blood (Blood, Venous) 06/04/2024 7:45 AM CDT 06/05/2024 7:56 AM CDT Josette Hannon M.D. LAB HLA ORDERABLES Final R esult Performing Organization Address [facility] Co de Phone Number [facility] [address] [place] [address], [facility] DBB8 [facility] [address] [place] [address] * Tacrolimus, Trough (06/04/2024 7:45 AM CDT) [facility] Tacrolimus, Trough 6.4 5.0-15.0 (Trough) ng/mL 06/05/2024 10:15 AM CDT [facility] Comment: ----ADDITIONAL INFORMATION---- Target steady-state trough concentrations vary depending on the type of transplant, concomitant immunosuppression, clinical/institutional protocols, and time post-transplant. Results should be interpreted in conjunction with this clinical information and any physical signs/symptoms of rejection/toxicity. Testing performed by Liquid Chromatography-Tandem Mass Spectrometry (LC-MS/MS). This test was developed and its performance characteristics determined by [facility] in a manner consistent with CLIA requirements. This test has not been cleared or approved by the U.S. Food and Drug Administration. Blood (Blood, Venous) 06/04/2024 7:45 AM CDT 06/05/2024 7:07 AM CDT Josette Hannon M.D. LAB BLOOD NON ADD-ON Final Result Performing Organization Address [facility] Co de Phone Number [facility] [address] [place] [address] [facility] [address] [place] [address] [place] [address] * 25-Hydroxyvitamin D2 and D3 (06/04/2024 7:45 AM CDT) Pathologist [facility] 25-Hydroxy D2 <4.0 ng/mL 06/05/2024 4:11 PM CDT SDSC 25-Hydroxy D3 38 ng/mL 06/05/2024 4:11 PM CDT SDSC 25-Hydroxy D Total 38 ng/mL 2023 4:11 PM CDT [facility] Comment: ----REFERENCE VALUE---- 25-HYDROXY D TOTAL (D2+D3) Optimum levels in the healthy population are 20-50. ----ADDITIONAL INFORMATION---- This test was developed and its performance characteristics determined by [facility] in a manner consistent with CLIA requirements. This test has not been cleared or approved by the U.S. Food and Drug Administration. Blood (Blood, Venous) 06/04/2024 7:45 AM CDT 06/05/2024 7:22 AM CDT Josette Hannon M.D. LAB BLOOD ADD-ON Final Res ult [facility] [address] [place] [address] [facility] [address] [place] [address] [place] [address] * (ABNORMAL) CBC with Differential, Blood (06/04/2024 7:45 AM CDT) [facility] Hemoglobin 14.0 13.2 - 16.6 g/dL 06/04/2024 [...] M.D. LAB BLOOD ADD-ON Final Res ult [facility] [address] [place] [address], [place] [address] * Phosphorus Inorganic (06/04/2024 7:45 AM CDT) Phosphorus (Inorganic), P 3.0 2.5 - 4.5 mg/dL 06/04/2024 8:11 AM CDT CNFL Blood (Blood, Venous) 06/04/2024 7:45 AM CDT 06/04/2024 7:48 AM CDT us Josette Hannon M.D. LAB BLOOD ADD-ON Final Res ult [facility] [address] [place] [address], [place] [address] * (ABNORMAL) Parathyroid Hormone (PTH) (06/04/2024 7:45 AM CDT) Parathyroid Hormone (PTH), S 89(H) 15 - 65 pg/mL 06/04/2024 1:42 PM CDT RDW Comment: Biotin has been identified by the sample worker as a potential interfering substance. Higher concentrations of biotin may be found in multivitamins, hair/nail supplements, and workout supplements. If the result does not match clinical observations, repeat testing after patient refrains from the use of supplements for at least 12 hours. Blood (Blood, Venous) 06/04/2024 7:45 AM CDT 06/04/2024 1:06 PM CDT Josette Hannon M.D. LAB BLOOD ADD-ON Final Res ult [facility] [address] [place] [address], [facility] RDWG [facility] [place] [facility] [place] [address] [place] [phone] * Magnesium (06/04/2024 7:45 AM CDT) Magnesium, P 2.2 1.7 - 2.3 mg/dL 06/04/2024 8:11 AM CDT CNFL Blood (Blood, Venous) 06/04/2024 7:45 AM CDT 06/04/2024 7:48 AM CDT Josette Hannon M.D. LAB BLOOD ADD-ON Final Res ult [facility] [address] [place] [address], [place] CNFL [facility] [place] in [address] [address] * (ABNORMAL) Hemoglobin A1c (06/04/2024 7:45 AM CDT) Hemoglobin A1c, B 6.0(H) 4.2 - 5.6 % 06/04/2024 8:02 AM CDT CNFL Comment: Hemoglobin A1c values of 5.7-6.4 percent indicate an increased risk for developing diabetes mellitus. In diabetic patients, HbA1c goals should be discussed with healthcare provider. Blood (Blood, Venous) 06/04/2024 7:45 AM CDT 06/04/2024 7:48 AM CDT us Josette Hannon M.D. LAB BLOOD ADD-ON Final Res ult [facility] [address] [place] [address], [facility] CNFL [facility] [address] * (ABNORMAL) Comprehensive Metabolic Panel (06/04/2024 7:45 [...] ADD-ON Final Res ult Performing Organization Address City/State/[facility] Co de Phone Number [facility] [address] [place] [address], [facility] [place] [address] * Protein, Total, 24 hour, Urine (06/04/2024 6:40 AM CDT) Total Protein, 24 HR, U 164 <229 mg/24 h 06/11/2024 5:44 PM CDT DTL Collection Duration 24 h 06/11/2024 1:28 PM CDT DTL Urine Volume 2725 mL 06/11/2024 1:28 PM CDT DTL Urine (Urine, 24 Hours) 06/04/2024 6:40 AM CDT 06/11/2024 1:28 PM CDT us Josette Hannon M.D. LAB URINE ORDERABLES Final Result [facility] [address] [place], [place] [address] [address] [place] [address] * Albumin, 24 hour Collection, Urine (06/04/2024 6:40 AM CDT) Albumin, 24 Hr, U <14 <30 mg/24 h 06/11/2024 3:09 PM CDT DTL Comment: ----ADDITIONAL INFORMATION---- This test has been modified from the sample worker's instructions. Its performance characteristics were determined by [facility] in a manner consistent [...] URINE ORDERABLES Final Result Performing Organization Address [facility] Co de Phone Number [facility] [address] [place] [address], [facility] [address] [place] [address] * Colonoscopy (11/03/2013 2:40 PM WASTEWATER TREATMENT ENGINEER) 11/03/2013 2:40 PM WASTEWATER TREATMENT ENGINEER us Historical Provider GI PROCEDURE ORDERABLES Carmella l Result [facility] [address] [id number] from Last 3 Months or Most Recently Relevant to Health Maintenance Additional Health Concerns Infection Onset Date Last Indicated Protective Environment 01/03/2023 3 Insurance [facility] Advance Directives For more information, please contact: [phone] Documents on File Type Date Recorded Patient Project Engineer Chemicals Expl anation Advance Directives 10/15/2019 9:33 AM Heal th Care Directive Advance Directives 11/30/2010 12:00 AM [place] document. See document viewer. Healthcare Agents on File Name Relationship Healthcare Agent [facility] p Communication Ammarla Paul Spouse Health Care Agent Guido Morocho First Alternate Health Care Agent Jose Raul Morocho Second Alternate Health Care Agent Care Teams Management Development Specialist Relationship Specialty Start Date End Date Elsewhere, Pcp PCP - General Internal Medicine 05/02/22 [facility] [address] [place], [place] [address] Laboratory Medicine 07/19/20
--- OUTSIDE RECORDS SUMMARY | 2024-09-02 08:13 | XMS_ITS | Encounter Summary ---
Author Organization [facility] Address [address] [place] [address] Care Team Providers Care Career Advisor Name Role Phone Elsewhere, Pcp Primary Care Provider Unavailabl e Encounter Details Date Type Department Care Team (Latest Contact Info) Description 06/05/2024 3:09 PM CDT - 06/05/2024 11:59 PM CDT Hospital Encounter Department of Laboratory Medicine and Pathology, [facility] in [place], [place] [address] [place] [address] Josette Hannon M.D. [address] [place] [address] Chronic Kidney Disease Stage 4 Glomerular Filtration [...] often do you attend chur ch or anglican services? Never 05/12/2021 Do you belong to any clubs o r organizations such as sabianist groups, unions, fraternal or athletic [...] Answer Date Recorded PHQ-2 Score 0 02/27/2019 [facility] - Occupational [...] Master's degree (e.g., MA, MS, Young, MEd, SPORTS FITNESS AND WELLNESS DIRECTOR, ERNIE) 05/08/2019 Sex and Gender Information Value Date Recorded Sex Assigned at Male 05/27/2018 8:52 AM CDT Legal Sex Male 7:01 PM FERMENTING CELLARS RECEIVER Gender Identity Male 05/27/2018 8:52 AM CDT [...] st Contact Info) Description 2024 9:00 AM FERMENTING CELLARS RECEIVER Appointment Department of Radiology, [facility], in [place], [place] [address] [place] [address] Elio Churchill M.D. [address] [place] [phone] 2024 10:30 AM FERMENTING CELLARS RECEIVER [facility] in [place], [place] [address] [place] [address] Josette Hannon M.D. [address] [place] [phone] documented as of this encounter Procedures Procedure Name Priority Date/Time Associated Diagnosis Comments SUPERSATURATION, 24H, U Routine 06/10/2024 7:00 AM CDT Chronic Kidney Disease Stage 4 Glomerular Filtration Rate 15-29 (HCC) documented in this encounter Results * (ABNORMAL) Supersaturation, 24 hour, Urine (06/10/2024 7:00 AM CDT) [facility] Sodium, 24 HR, U 104 22 - [...] its performance characteristics determined by [facility] in a manner consistent with CLIA requirements. This test has not been cleared or approved by the U.S. Food and Drug Administration. Citrate Excretion, 24 HR, U 470 413 - 1191 mg/24 h 06/11/2024 11:15 AM CDT DTL Comment: ----ADDITIONAL INFORMATION---- This test was developed and its performance characteristics determined by [facility] in a manner consistent with CLIA requirements. This test has not been cleared or approved by the U.S. Food and Drug Administration. Oxalate, 24 HR, U (mmol/24 HR) 0.34 0.11 - 0.46 mmol/24 h 06/11/2024 3:15 PM CDT DTL Comment: ----ADDITIONAL INFORMATION---- This test was developed and its performance characteristics determined by [facility] in a manner consistent with CLIA requirements. [...] This test has been modified from the bulwark carpenter's instructions. Its performance characteristics were determined by [facility] in a manner consistent with CLIA requirements. [...] Hannon M.D. LAB URINE ORDERABLES Final Result [facility] [address] [place] [address], [facility] [address] [place] [address] DT 200 [facility] [address] [place] [address] documented in this encounter Visit Diagnoses Diagnosis Chronic Kidney Disease Stage 4 Glomerular Filtration Rate 15-29 (HCC) documented in this encounter Additional Health Concerns Infection Onset Date Last Indicated Resolved Time Protective Environment 01/03/2023 01/03/2023 Assessment Noted Time PHQ-9 Depression Total Score: 0 07/17/20 17 1:08 PM CDT documented as of this encounter Care Teams Career Advisor Relationship Specialty Start Date End Date Elsewhere, Pcp PCP - General Internal Medicine 05/02/22 [facility] [address] [place], [place] [address] Laboratory Medicine 07/19/20 documented as of this encounter
--- OUTSIDE RECORDS SUMMARY | 2024-09-02 08:13 | XMS_ITS | Encounter Summary ---
Author Organization [facility] Address [address] [place] [address] Care Team Providers Care Veterinarian Name Role Phone Elsewhere, Pcp Primary Care Provider Unavailabl e Encounter Details Date Type Department Care Team (Latest Contact Info) Description 06/05/2024 2:18 PM CDT - 06/05/2024 3:08 PM CDT Hospital Encounter Department of Laboratory Medicine and Pathology, [facility] in [place], [place] [address] [place] [address] Josette Hannon M.D. [address] [place] [address] Transplant Renal (HCC) Discharge Disposition: Home or [...] week 05/12/2021 How often do you attend [facility] or mormon services? Never 05/12/2021 Do you [...] Master's degree (e.g., MA, MS, Young, MEd, CORK INSULATOR HELPER, ERNIE) 05/08/2019 Sex and Gender Information Value Date Recorded Sex Assigned at Male 05/27/2018 8:52 AM CDT Legal Sex Male 7:01 PM DRAW TENDER Gender Identity Male 05/27/2018 8:52 AM CDT [...] st Contact Info) Description 2024 9:00 AM DRAW TENDER Appointment Department of Radiology, [facility], in [place], [place] [address] [place] [address] Elio Churchill M.D. [address] [place] [phone] 2024 10:30 AM DRAW TENDER Office Visit Joey christina [facility] Clinical Regeneration in [place], [place] [address] [place] [address] Josette Hannon M.D. [address] [place] [phone] documented as of this encounter Procedures Procedure Name Priority Date/Time Associated Diagnosis Comments OXALATE, PLASMA Routine 06/05/2024 2:51 PM CDT Transplant Renal (HCC) documented in this encounter Results * Oxalate (06/05/2024 2:51 PM CDT) Oxalate, Plasma <1.5 <=2.0 mcmol/L 06/06/2024 2:37 PM CDT VAN Comment: ----ADDITIONAL INFORMATION---- This test has been modified from the special education math teacher's instructions. Its performance characteristics were determined by [facility] in a manner consistent with CLIA requirements. This test has not been cleared or approved by the U.S. Food and Drug Administration. Blood (Blood, Venous) 06/05/2024 2:51 PM CDT 06/05/2024 3:35 PM CDT Josette Hannon M.D. LAB BLOOD NON ADD-ON Final Result [facility] - [address] [address], [facility] VAN [facility] [address] documented in this encounter Visit Diagnoses Diagnosis Transplant Renal (HCC) documented in this encounter Additional Health Concerns Infection Onset Date Last Indicated Resolved Time Protective Environment 01/03/2023 01/03/2023 Assessment Noted Time PHQ-9 Depression Total Score: 0 07/17/20 17 1:08 PM CDT documented as of this encounter Care Teams Veterinarian Relationship Specialty Start Date End Date Elsewhere, Pcp PCP - General Internal Medicine 05/02/22 [facility] [address] [place], [place] [address] Laboratory Medicine 07/19/20 documented as of this encounter
--- OUTSIDE RECORDS SUMMARY | 2024-09-02 08:13 | XMS_ITS | Encounter Summary ---
Author Organization [facility] Address [address] [place] [address] Care Team Providers Care Buffer Machine Name Role Phone Elsewhere, Pcp Primary Care Provider Unavailabl e Encounter Details Date Type Department Care Team (Late st Contact Info) Description 06/19/2024 Orders Only Division of Endocrinology in [place], [place] [address] [place] [phone] Elio Churchill M.D. [address] [place] [phone] Social History Tobacco Use Types Packs/Day Years [...] any clubs o r organizations such as anabaptist groups, unions, fraternal or athletic [...] Answer Date Recorded PHQ-2 Score 0 02/27/2019 [facility] ional [facility] - Occupational Stress Questionnaire Answer Date [...] Master's degree (e.g., MA, MS, Young, MEd, TRUST EVALUATION SUPERVISOR, ERNIE) 05/08/2019 Sex and Gender Information Value Date Recorded Sex Assigned at Male 05/27/2018 8:52 AM CDT Legal Sex Male 7:01 PM SQUAD LEADER Gender Identity Male 05/27/2018 8:52 AM CDT Sexual Orientation Straight 05/27/2018 8: 52 AM CDT documented as of this encounter Plan of Treatment Upcoming Encounters Date Type Department Care Team (Late st Contact Info) Description 2024 9:00 AM SQUAD LEADER Appointment Department of Radiology, [facility], in [place], [place] [address] [place] [address] Elio Churchill M.D. [address] [place] [phone] 2024 10:30 AM SQUAD LEADER Office Visit Joey Gordillo [facility] in [place], [place] [address] [place] [address] Josette Hannon M.D. [address] [place] [phone] documented as of this encounter Visit Diagnoses Not on filedocumented in this encounter Additional Health Concerns Infection Onset Date Last Indicated Resolved Time Protective Environment 01/03/2023 01/03/2023 Assessment Noted Time PHQ-9 Depression Total Score: 0 07/17/20 17 1:08 PM CDT documented as of this encounter Care Teams Buffer Machine Relationship Specialty Start Date End Date Elsewhere, Pcp PCP - General Internal Medicine 05/02/22 [facility] [address] [place], [place] [address] Laboratory Medicine 07/19/20 documented as of this encounter
--- OUTSIDE RECORDS SUMMARY | 2024-09-02 08:13 | XMS_ITS | Encounter Summary ---
Author Organization [facility] Address [address] [place] [address] Care Team Providers Care Distillery Miller Name Role Phone Elsewhere, Pcp Primary Care Provider Unavailabl e Encounter Details Date Type Department Care Team (Late st Contact Info) Description 06/05/2024 Orders Only Joey Ferrer Formerly named [facility] in [place], [place] [address] [place] [phone] Mac Yi, MILI, C.N.P., M.S.N. [address] [place] [phone] Transplant Renal (HCC) Social History Tobacco Use [...] week 05/12/2021 How often do you attend [facility] or alevism services? Never 05/12/2021 Do you belong to any clubs o r organizations such as judaism groups, unions, fraternal or athletic [...] Answer Date Recorded PHQ-2 Score 0 02/27/2019 [facility]at ional Health - [...] Master's degree (e.g., MA, MS, Young, MEd, VICE PRESIDENT UNDERWRITING, ERNIE) 05/08/2019 Sex and Gender Information Value Date Recorded Sex Assigned at Male 05/27/2018 8:52 AM CDT Legal Sex Male 7:01 PM HUMAN RESOURCES PROJECT MANAGER Gender Identity Male 05/27/2018 8:52 AM CDT Sexual Orientation Straight 05/27/2018 8: 52 AM CDT documented as of this encounter Plan of Treatment Upcoming Encounters Date Type Department Care Team (Late st Contact Info) Description 2024 9:00 AM HUMAN RESOURCES PROJECT MANAGER Appointment Department of Radiology, [facility], in [place], [place] [address] [place] [address] Elio Churchill M.D. [address] [place] [phone] 2024 10:30 AM HUMAN RESOURCES PROJECT MANAGER Office [facility] in [place], [place] [address] [place] [phone] Josette Hannon M.D. [address] [place] [address] [place] [address] Scheduled Orders Name Type Priority Associated Diagnoses Orde r Schedule Tacrolimus, Trough Lab Routine Transplant Renal (HCC) Expected: 06/05/2024 (Approximate), Expires: 09/04/2025 documented as of this encounter Visit Diagnoses Diagnosis Transplant Renal (HCC) documented in this encounter Additional Health Concerns Infection Onset Date Last Indicated Resolved Time Protective Environment 01/03/2023 01/03/2023 Assessment Noted Time PHQ-9 Depression Total Score: 0 07/17/20 17 1:08 PM CDT documented as of this encounter Care Teams Distillery Miller Relationship Specialty Start Date End Date Elsewhere, Pcp PCP - General Internal Medicine 05/02/22 [facility] [address] [place], [place] [address] Laboratory Medicine 07/19/20 documented as of this encounter
--- OUTSIDE RECORDS SUMMARY | 2024-09-02 08:14 | XMS_ITS | Encounter Summary ---
Author Organization [facility] Address [address] [place] [address] Care Team Providers Care Director Private Name Role Phone Elsewhere, Pcp Primary Care Provider Unavailabl e Reason for Referral * Outpatient (Routine) - Closed Specialty Diagnoses / Procedures Referred By Samantha limon Referred To Contact Diagnoses Transplant Renal (HCC) Procedures Short renal clearance: Iothalamate/Iohexol (Renal Studies Unit) Josette Hannon M.D. 200 [place] [address] Phone: tel: fax: [facility] Referral ID Status Reason Start Date Expiration Date Visits Re quested Visits Authorized [id number] Closed 02/20/2024 02/19/2025 1 1 Reason for Visit * Outpatient (Routine) - Closed Specialty Diagnoses / Procedures Referred By Samantha limon Referred To Contact Diagnoses Transplant Renal (HCC) Procedures Short renal clearance: Iothalamate/Iohexol (Renal Studies Unit) Josette Hannon M.D. 200 [place] [address] Phone: tel: fax: [facility] Referral ID Status Reason Start Date Expiration Date Visits Re quested Visits Authorized [id number] Closed 02/20/2024 02/19/2025 1 1 Encounter Details Date Type Department Care Team (Latest Contact Info) Description 06/05/2024 9:35 AM CDT - 06/05/2024 2:17 PM CDT Hospital Encounter Department of Laboratory Medicine and Pathology, [facility], in [place], [place] [address] [place] [address] Josette Hannon M.D. [address] [place] [address] Transplant Renal (HCC) Discharge Disposition: Home or [...] Master's degree (e.g., MA, MS, Young, MEd, HUMAN RESOURCES MANAGER MANUFACTURING, ERNIE) 05/08/2019 Sex and Gender Information Value Date Recorded Sex Assigned at Male 05/27/2018 8:52 AM CDT Legal Sex Male 7:01 PM INDUSTRIAL ECONOMICS TEACHER Gender Identity Male 05/27/2018 8:52 AM CDT [...] Mass Index 20 06/05/2024 9:43 AM CDT documented in this encounter Medications [...] by mouth daily. 120 tablet 11 06/05/2024 tacrolimus (PROGRAF) 1 mg capsuleIndication s:Transplant Renal [...] st Contact Info) Description 2024 9:00 AM INDUSTRIAL ECONOMICS TEACHER Appointment Department of Radiology, [facility], in [place], [place] [address] [place] [address] Elio Churchill M.D. [address] [place] [phone] 2024 10:30 AM INDUSTRIAL ECONOMICS TEACHER Office Visit Joey christina [facility] Clinical Reg[facility] in [place], [place] [address] [place] [address] Josette Hannon M.D. [address] [place] [phone] Scheduled Orders Name Type Priority Associated Diagnoses Orde r Schedule Short renal clearance: Iothalamate/Iohexol (Renal Studies Unit) Procedures Routine Transplant Renal (HCC) Once for 1 Occurrences starting 06/05/2024 until 06/05/2024 documented as of this encounter Procedures Procedure Name Priority Date/Time Associated Diagnosis Comments IOTHALAMATE, GLOMERULAR FILTRATION RATE, P Routine 06/05/2024 9:48 AM CDT documented in this encounter Results * (ABNORMAL) Iothalamate, Glomerular Filtration Rate (06/05/2024 9:48 AM CDT) Uncorrctd Iothal Cl 47 mL/min 06/06 10:00 AM CDT VAN Corrctd Iothal Cl 42(L) 69 - 123 mL/min/BS A 06/06/2024 10:00 AM CDT VAN Comment: ----ADDITIONAL INFORMATION---- This test was developed and its performance characteristics determined by [facility] in a manner consistent with CLIA requirements. This test has not been cleared or approved by the U.S. Food and Drug Administration. Blood (Blood, Venous) 06/05/2024 9:48 AM CDT 06/05/2024 12:08 PM CDT Narrative [facility] - 06/06/2024 10:00 AM CDT Specimen Information: Specimen ID: [id number] Specimen Collection Start Date: 06/05/2024 9:48 AM Specimen Received Date: 06/05/2024 12:08 PM Specimen ID: [id number] Specimen Collection Start Date: 06/05/2024 10:53 AM Specimen Received Date: 06/05/2024 12:08 PM Specimen ID: [id number] Specimen Collection Start Date: 06/05/2024 11:41 AM Specimen Received Date: 06/05/2024 12:08 PM Specimen ID: [id number] Specimen Collection Start Date: 06/05/2024 10:56 AM Specimen Received Date: 06/05/2024 12:08 PM Specimen ID: [id number] Specimen Collection Start Date: 06/05/2024 11:44 AM Specimen Received Date: 06/05/2024 12:08 PM Josette Hannon M.D. LAB BLOOD NON ADD-ON Final Result [facility] 200 [place] [address], [facility] VAN [address] [place] [address] 200 [place] [address] documented in this encounter Visit Diagnoses Diagnosis Transplant Renal (HCC) documented in this encounter Administered Medications Inactive Administered Medications - up to 3 most recent administrations Medication Order MAR Action Action Date Dose Rate Site iothalamate meglumine 30 % injection dilution 1 mL ([place]) 1 mL, subcutaneous, Once, On Yessenia 06/05/24 at 1000, For 1 dose Given 06/05/2024 9:50 AM CDT 1 mL Left Upper Arm (Back) documented in this encounter Additional Health Concerns Infection Onset Date Last Indicated Resolved Time Protective Environment 01/03/2023 01/03/2023 Assessment Noted Time PHQ-9 Depression Total Score: 0 07/17/20 17 1:08 PM CDT documented as of this encounter Care Teams Director Private Relationship Specialty Start Date End Date Elsewhere, Pcp PCP - General Internal Medicine 05/02/22 [facility] [address] [place], [place] [address] Laboratory Medicine 07/19/20 documented as of this encounter
--- OUTSIDE RECORDS SUMMARY | 2024-09-02 08:14 | XMS_ITS ---
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 Transplant External Managing Financial Sales Assistant [phone] [email or web address] Post-Transplant Pre-Transplant Admitted: 05/22/2011 Referred: 12/12/2007 Transplanted: 05/22/2011 Evaluation began: 1 Discharged: 05/25/2011 Center waitlisted: 1
--- OUTSIDE RECORDS SUMMARY | 2024-09-02 08:14 | XMS_ITS | Encounter Summary ---
Author Organization [facility] Address [address] [place] [address] Care Team Providers Care Director Digital Advertising Name Role Phone Elsewhere, Pcp Primary Care Provider Unavailabl e Reason for Referral * Outpatient (Routine) - Closed Specialty Diagnoses / Procedures Referred By Samantha limon Referred To Contact Diagnoses Transplant Renal (HCC) Procedures BMD Bone Density Spine Hips Josette Hannon M.D. [address] [place] [address] Phone: tel: fax: [facility] Referral ID Status Reason Start Date Expiration Date Visits Re quested Visits Authorized [id number] Closed 02/20/2024 02/19/2025 1 1 Reason for Visit * Outpatient (Routine) - Closed Specialty Diagnoses / Procedures Referred By Samantha limon Referred To Contact Diagnoses Transplant Renal (HCC) Procedures BMD Bone Density Spine Hips Josette Hannon M.D. [address] [place] [address] Phone: tel: fax: [facility] Referral ID Status Reason Start Date Expiration Date Visits Re quested Visits Authorized [id number] Closed 02/20/2024 02/19/2025 1 1 Encounter Details Date Type Department Care Team (Latest Contact Info) Description 06/05/2024 9:04 AM CDT - 06/05/2024 9:34 AM CDT Hospital Encounter Department of Radiology, [facility], in [place], [place] [address] [place] [address] Josette Hannon M.D. [address] [place] [address] Transplant Renal (HCC) Discharge Disposition: Home or [...] often do you attend chur ch or pentecostalism services? Never 05/12/2021 Do you belong to [...] Date Recorded PHQ-2 Score 0 02/27/2019 [facility] of Occupat ecu healthal [facility] - Occupational Stress Questionnaire Answer [...] degree (e.g., MA, MS, Young, MEd, MANAGER WELLNESS, ERNIE) 05/08/2019 Sex and Gender Information Value Date Recorded Sex Assigned at Male 05/27/2018 8:52 AM CDT Legal Sex Male 7:01 PM PROMOTIONAL MARKETING AGENT Gender Identity Male 05/27/2018 8:52 AM CDT Sexual Orientation Straight 05/27/2018 8: 52 AM CDT documented as of this encounter Medications at Time of Discharge atorvastatin (LIPITOR) 40 mg tablet Take 1 tablet (40 mg total) by mouth daily. 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 omega-3 fatty acids-fish oil 300-1,000 mg per capsule Take 1 capsule by mouth daily. 05/23/2016 tacrolimus (PROGRAF) 1 mg capsuleIndication s:Transplant Renal [...] st Contact Info) Description 2024 9:00 AM PROMOTIONAL MARKETING AGENT Appointment Department of Radiology, [facility], in [place], [place] [address] [place] [address] Elio Churchill M.D. [address] [place] [address] 2024 10:30 AM PROMOTIONAL MARKETING AGENT [facility] [place], [place] [address] [place] [address] Josette Hannon M.D. [address] [place] [address] documented as of this encounter Procedures Procedure Name Priority Date/Time Associated Diagnosis Comments BMD BONE DENSITY SPINE HIPS RAD - Routine (most inpatients and all outpatients) 06/05/2024 9:42 AM CDT Transplant Renal (HCC) documented in this encounter Results * BMD Bone Density Spine Hips (06/05/2024 9:42 AM CDT) Anatomical Region Laterality Modality Hip, Lumbar Spine, Nuclear M edicine RST LOS, Musculoskeletal ARZ LOS, Muskuloskeletal FLA LOS N/A Radio graphic Imaging Impressions 06/05/2024 11:10 AM CDT Osteoporosis DualFemur (region: Neck Right) Narrative 06/05/2024 11:10 AM CDT EXAM: BMD BONE DENSITY SPINE HIPS Bone Mineral Density (BMD) analysis performed on VigixXA with serial number [id number]. COMPARISON: Serial Comparisons Left Total Hip results: [...] including images and graphs, is available in [facility]ack[employer]. In the absence of other causes of [...] Bone Mineral Density (BMD) analysis performed on TrueSpan with serialnumber [id number]. COMPARISON: Serial Comparisons Left Total Hip results: [...] report, including images and graphs,is available in [employer]. In the absence of other causes of [...] Josette LOPEZ DXA PROCEDURES Final R esult documented in this encounter Visit Diagnoses Diagnosis Transplant Renal (HCC) documented in this encounter Additional Health Concerns Infection Onset Date Last Indicated Resolved Time Protective Environment 01/03/2023 01/03/2023 Assessment Noted Time PHQ-9 Depression Total Score: 0 07/17/20 17 1:08 PM CDT documented as of this encounter Care Teams Director Digital Advertising Relationship Specialty Start Date End Date Elsewhere, Pcp PCP - General Internal Medicine 05/02/22 [facility] [address] [place], [place] [address] Laboratory Medicine 07/19/20 documented as of this encounter
--- OUTSIDE RECORDS SUMMARY | 2024-09-02 08:14 | XMS_ITS | Encounter Summary ---
Author Organization [facility] Address [address] [place] [address] Care Team Providers Care Supervisor Painting Department Name Role Phone Elsewhere, Pcp Primary Care Provider Unavailabl e Reason for Referral * Transplant (Routine) - Authorized Specialty Diagnoses / Procedures Referred By Samantha limon Referred To Contact Transplant Nery Hannon M.D. [address] [place] [address] Phone: tel: fax: [facility] Referral ID Status Reason Start Date Expiration Date V isits Requested Visits Authorized [id number] Authorized 06/05/2024 12/05/2025 1 1 * Outpatient (Routine) - Closed Specialty Diagnoses / Procedures Referred By Samantha limon Referred To Contact Diagnoses Transplant Renal (HCC) Procedures ECG 12 Lead Nery Hannon M.D. [address] [place] [address] Phone: tel: fax: [facility] Referral ID Status Reason Start Date Expiration Date Visits Re quested Visits Authorized [id number] Closed 06/05/2024 06/05/2025 1 1 Reason for Visit * Reason Comments Transplant Follow-up * Transplant (Routine) - Closed Specialty Diagnoses / Procedures Referred By Samantha t Referred To Contact Transplant Nery Hannon M.D. [address] [place] [address] Phone: tel: fax: [facility] Referral ID Status Reason Start Date Expiration Date Visits Re quested Visits Authorized [id number] Closed 02/20/2024 08/21/2025 1 1 Encounter Details Date Type Department Care Team (Latest Contact Info) Description 06/05/2024 1:30 PM CDT Office Visit Joey christina [facility] in [place], [place] [address] [place] [phone] Nery Hannon M.D. [address] [place] [phone] Transplant Renal (HCC) (Primary Dx) Social History [...] often do you attend chur ch or restoration services? 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 - 06/05/2024 1:30 PM CDT KIDNEY TRANSPLANT FOLLOW UP VISIT REASON FOR VISIT: Tyler Morocho is a 58 y.o. male who presents for kidney transplant follow-up and immunosuppression management follow up. HISTORY OF PRESENT ILLNESS: Patient has medical history significant for end-stage renal disease [...] been doing quite well. Creatinine remained stable, between 1.5-1.7 mg/dL. 24 hour urine collection showed no albuminuria. He did have a history of elevated blood sugars, and his hemoglobin A1c peaked at 6.7%, on October 13, 2023. He is physically active, and exercise on regular basis, although has been exercising less recently.We have been following blood glucose closely. He has a history of hyperglycemia, and prediabetes, that initially improved after dietary modification. However, more recently his blood sugars are running higher, with most recent hemoglobin A1c 6.0%. He does have Emeka CGM that we reviewed together. Majority of his blood sugars, 92%, stay within the target, with blood sugar less than 180. There havebeen couple of occasions, that his blood sugars are more than 250. He continues to use Emeka to monitor his blood sugars For immunosuppression, he is on tacrolimus, CellCept 500 mg twice a day, and prednisone at 5 mg daily. His most recent tacrolimus level is around 6. Patient has a history of osteoporosis. He has beenoff alendronate, on drug holiday. He has repeated bone density. They may be small change in the hiparea, but some gained in the spine. Patient is interested in coming off prednisone. There are some risks, however, but we can attempt do it very slowly. I have reduced prednisone dose to 4 mg daily from 5 mg for the time being. Given stability of his kidney function and no side effects, I do not see any reason to convert to belatacept. We discussed the diet. Patient is eating very healthy. He does eat high oxalate diet. Occasionally,although very rarely, high oxalate diet can cause deposition of oxalate in the kidneys. I have added oxalate excretion was 24 hour urine collection. Otherwise, he has had uneventful year. 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 REVIEW OF SYSTEMS: A comprehensive review of systems was obtained and was otherwise negative except what mentioned in the HPI. Answers for HPI/ROS submitted by the patient were reviewed by me when available. PAST MEDICAL AND SURGICAL HISTORIES: Medical records reviewed by me and discussed with the patient and noted below. Past Medical History: Diagnosis Date Hyperlipidemia Hypertension NOS Osteopenia 2011 Renal Disease Past Surgical History: Procedure Laterality [...] Prior to Visit Medication Sig Dispense Refill atorvastatin (LIPITOR) 40 mg tablet Take 1 tablet (40 mg total) by mouth daily. 90 tablet 3 blood-glucose sensor (FreeStyle Emeka 3 Sensor) device 1 each as directed. Change every 14 days forcontinuous glucose monitoring. 9 each 3 flash glucose sensor (FreeStyle Emeka 14 Day Sensor) kit PLACE 1 SENSOR DIRECTED AND CHANGE EVERY 14 DAYS 1 kit 11 Lactobacillus acidophilus (PROBIOTIC ORAL) Take 1 tablet by mouth daily. mycophenolate (CELLCEPT) 250 mg capsule TAKE 2 CAPSULES BY MOUTH IN THE MORNING AND 1 CAPSULE BY MOUTH IN THE PM TEVA BRAND 270 capsule 3 omega-3 fatty acids-fish oil 300-1,000 mg per capsule Take 1 capsule by mouth daily. tacrolimus (PROGRAF) 1 mg capsule Take 2 capsules (2 mg total) by mouth every morning AND 1 capsule(1 mg total) every evening. 270 capsule 3 [DISCONTINUED] calcium carbonate-vit D3-min 600 mg calcium- 400 unit tablet Take 1 tablet by mouth daily. 6 [DISCONTINUED] predniSONE (DELTASONE) 5 mg tablet TAKE 1 TABLET BY MOUTH ONCE DAILY. 90 tablet 3 alendronate (FOSAMAX) 70 mg tablet TAKE 1 TABLET (70 MG TOTAL) BY MOUTH ONCE A WEEK. 12 tablet 3 No current facility-administered medications on file prior to visit. PHYSICAL EXAM: BP 108/69 Pulse 96 , GENERAL APPEARANCE: alert and no acute [...] was done in 2016. Creatinine is overall stable and he has no albuminuria. He has therapeutic drug levels, with tacrolimus of 6.4 mg per dL (gaol 5-7) and Cellcept 500 mg twice a day, as well as prednisone 5 mg daily. 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 PTH is 89 (up form 58) I have increased calcium and vitamin-D to twice a day. He did have slightly elevated calcium previously on this dose, however this was in the setting of high normal albumin. His bone density improved in the spine level, but is minimally worse on the hip level comparing with the previous year. I will ask Dr. Churchill if he has any thoughts #5 Secondary hyperparathyroidism PTH normalized #6 History of gout, asymptomatic #7 Hyperglycemia/prediabtes HbA1c improved; CGM showed blood glucose in the target range We discussed that muscle strengthening exercises, as well as walking after the meal can further improve hyperglycemia #8 Hyperlipidemia On statin; a low LDL #9 High oxalate diet We will check plasma and urine excretion of oxalate #10 Cardiovascular risk factor, including kidney transplant, prediabetes, and hyperlipidemia I will check EKG. PLAN: documented in this encounter Miscellaneous Notes * Addendum Note - Nery Hannon M.D. - 06/05/2024 1:30 PM CDTAddended by: NERY HANNON on: 06/05/2024 03:01 PM Modules accepted: Orders documented in this encounter Plan of Treatment Upcoming Encounters Date Type Department Care Team (Late st Contact Info) Description 2024 9:00 AM GRAIN MERCHANDISER Appointment Department of Radiology, [facility], in [place], [place] [address] [place] [address] Elio Churchill M.D. [address] [place] [address] 2024 10:30 AM GRAIN MERCHANDISER Office Visit Joey christina [facility] in [place], [place] [address] [place] [address] Nery Hannon M.D. [address] [place] [address] Scheduled Referrals Name Type Priority Associated Diagnoses Order Schedule Transplant Kidney / pancreas office visit (clinic) General Outpatient Referral Routine Expected: 10/28/2024, Expires: 09/04/2025 documented as of this encounter Results * ECG 12 Lead (06/05/2024 2:58 PM CDT) Ventricular Rate ECG/Min 73 BPM MUSE WA Interval 148 ms MUSE QRSD Interval 98 ms MUSE QT Interval 374 ms MUSE QTC Interval 412 ms MUSE P [place] 58 degrees MUSE R [place] 81 degrees MUSE T Wave [place] 28 degrees MUSE 06/05/2024 2:58 PM CDT [...] found Reviewed by Rip Beltran III, CRAT Nery Hannon M.D. ECG ORDERABLES Final Resu lt MUSE NA * Oxalate (06/05/2024 2:51 PM CDT) Oxalate, Plasma <1.5 <=2.0 mcmol/L 06/06/2024 2:37 PM CDT VAN Comment: ----ADDITIONAL INFORMATION---- This test has been modified from the manager of corporate communications's instructions. Its performance characteristics were determined by [facility] in a manner consistent with CLIA requirements. This test has not been cleared or approved by the U.S. Food and Drug Administration. Blood (Blood, Venous) 06/05/2024 2:51 PM CDT 06/05/2024 3:35 PM CDT Nery Hannon M.D. LAB BLOOD NON ADD-ON Final Result [facility] [address] [place] [address], [facility] VAN [facility] [address] [place] [address] documented in this encounter Visit Diagnoses Diagnosis Transplant Renal (HCC)- Primary documented in this encounter Additional Health Concerns Infection Onset Date Last Indicated Resolved Time Protective Environment 01/03/2023 01/03/2023 Assessment Noted Time PHQ-9 Depression Total Score: 0 07/17/20 17 1:08 PM CDT documented as of this encounter Care Teams Supervisor Painting Department Relationship Specialty Start Date End Date Elsewhere, Pcp PCP - General Internal Medicine 05/02/22 [facility] [address] [place], [place] [address] Laboratory Medicine 07/19/20 documented as of this encounter
--- OUTSIDE RECORDS SUMMARY | 2024-09-02 08:14 | XMS_ITS | Encounter Summary ---
Author Organization [facility] Address [address] [place] [address] Care Team Providers Care Radio News Anchor Name Role Phone Elsewhere, Pcp Primary Care Provider Unavailabl e Encounter Details Date Type Department Care Team (Latest Contact Info) Description 06/04/2024 7:31 AM CDT - 06/04/2024 11:59 PM CDT Hospital Encounter Department of Laboratory Medicine in [address] [address] Josette Hannon M.D. [address] [place] [address] Transplant Renal (HCC) Discharge Disposition: Home or [...] often do you attend chur ch or worship services? 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 9 each 3 06/27/2023 4 calcium carbonate-vit D3-min 600 mg calcium- 400 unit tablet Take 1 tablet by mouth daily. 6 06/30/2015 4 mycophenolate (CELLCEPT) 250 mg capsuleIndication s:Transplant Renal (HCC) TAKE 2 CAPSULES BY MOUTH IN THE MORNING AND 1 CAPSULE BY MOUTH IN THE PM TEVA BRAND 270 capsule 3 06/20/2023 4 predniSONE (DELTASONE) 5 mg tabletIndications :Transplant Renal (HCC) TAKE 1 TABLET BY MOUTH ONCE DAILY. 90 tablet 3 06/20/2023 4 documented as of this encounter Plan of Treatment Upcoming Encounters Date Type Department Care Team (Late st Contact Info) Description 2024 9:00 AM TRACTOR CRANE ENGINEER Appointment Department of Radiology, [facility], in [place], [place] [address] [place] [address] Elio Churchill M.D. [address] [place] [phone] 2024 10:30 AM TRACTOR CRANE ENGINEER Office Visit Joey Carissa [facility] in [place], [place] [address] [place] [address] Josette Hannon M.D. [address] [place] [phone] documented as of this encounter Procedures Procedure Name Priority Date/Time Associated Diagnosis Comments BACTERIAL CULTURE, AEROBIC + SUSC, URINE Routine 06/04/2024 7:52 AM CDT Transplant Renal (HCC) ALBUMIN, RANDOM, U Routine 06/04/2024 7: 52 AM CDT Transplant Renal (HCC) PROTEIN/CREATININE RATIO, RANDOM, URINE Routine 06/04/2024 7:52 AM CDT Transplant Renal (HCC) URINALYSIS WITH MICROSCOPIC Routine 06/04/2024 7:52 AM CDT Transplant Renal (HCC) documented in this encounter Results * Protein/Creatinine Ratio, Random, Urine (06/04/2024 7:52 AM CDT) Protein, Total, Random, U 4 mg/dL 06/04/2024 1:38 PM CDT RDWG Creatinine, Random, U 81 16 - 326 mg/dL 06/04/2024 8:09 AM CDT CNFL Protein/Creatin ine Ratio 0.05 <0.18 mg/mg 06/04/2024 1:38 PM CDT RDWG Urine (Urine, Midstream) 06/04/2024 7:52 AM CDT 06/04/2024 8:09 AM CDT Josette Hannon M.D. LAB URINE ORDERABLES Final Result [facility] [address] [place] [address], [facility] RDWG [facility] [place] [address] [place] [phone] CNFL [facility] in [address] [address] * Albumin, Random, Urine (06/04/2024 7:52 AM [...] URINE ORDERABLES Final Result Performing Organization Address [facility]/ZIP Co de Phone Number [facility] [address] [place] [address], [facility] CNFL [facility] in [address] [address] * Bacterial Culture, Aerobic + Susceptibility, Urine (06/04/2024 7:52 AM CDT) Urine Culture No growth after 1 day of incubation. 06/05/2024 10:23 AM CDT ECLR Urine (Urine, Midstream) 06/04/2024 7:52 AM CDT 06/04/2024 3:15 PM CDT Comment:Specimen Source Site : Urine Josette Hannon M.D. LAB MICROBIOLOGY - GENERAL ORDERABLES Final Result Performing Organization Address [facility] Co de Phone Number [facility] [address] [place] [address], [facility] ECLR [facility] [place] [address] * (ABNORMAL) Urinalysis, with Microscopic: Urine, Midstream [...] 8.0 06/04/2024 7:58 AM CDT CNFL Specific [place] 1.010 1.001 - 1.035 06/04/2024 7:58 AM [...] 7:52 AM CDT 06/04/2024 7:52 AM CDT us Josette Hannon M.D. LAB URINE ORDERABLES Final Result [facility] [address] [place] [address], [facility] CNFL [facility] in [address] [address] documented in this encounter Visit Diagnoses Diagnosis Transplant Renal (HCC) documented in this encounter Additional Health Concerns Infection Onset Date Last Indicated Resolved Time Protective Environment 01/03/2023 01/03/2023 Assessment Noted Time PHQ-9 Depression Total Score: 0 07/17/20 17 1:08 PM CDT documented as of this encounter Care Teams Radio News Anchor Relationship Specialty Start Date End Date Elsewhere, Pcp PCP - General Internal Medicine 05/02/22 [facility] [address] [place], [place] [address] Laboratory Medicine 07/19/20 documented as of this encounter
--- OUTSIDE RECORDS SUMMARY | 2024-09-02 08:14 | XMS_ITS | Encounter Summary ---
Author Organization [facility] Address [address] [place] [address] Care Team Providers Care Substation Operator Helper Name Role Phone Elsewhere, Pcp Primary Care Provider Unavailabl e Encounter Details Date Type Department Care Team (Latest Contact Info) Description 06/04/2024 7:30 AM CDT Hospital Encounter Department of Laboratory Medicine in [address] [phone] Josette Hannon M.D. [address] [place] [address] Transplant Renal (HCC) Discharge Disposition: Home or [...] How often do you attend [facility] or judaism services? Never 05/12/2021 Do you belong to [...] Answer Date Recorded PHQ-2 Score 0 02/27/2019 [facility] [...] Master's degree (e.g., MA, MS, Young, MEd, EDUCATION SUPERVISOR, ERNIE) 05/08/2019 Sex and Gender Information Value Date Recorded Sex Assigned at Male 05/27/2018 8:52 AM CDT Legal Sex Male 7:01 PM SOFTWARE DEVELOPER INTERN Gender Identity Male 05/27/2018 8:52 AM CDT [...] st Contact Info) Description 2024 9:00 AM SOFTWARE DEVELOPER INTERN Appointment Department of Radiology, [facility] in [place], [place] [address] [place] [address] Elio Churchill M.D. [address] [place] [phone] 2024 10:30 AM SOFTWARE DEVELOPER INTERN Office Visit Joey christina [facility] in [place], [place] [address] [place] [address] Josette Hannon M.D. [address] [place] [address] documented as of this encounter Procedures Procedure Name Priority Date/Time Associated Diagnosis Comments BKV DNA DETECT/QUANT, P Routine 06/04/2024 7:45 AM CDT Transplant Renal (HCC) HLA CLASS I/II COMBINED CPRA, SERUM Routine 06/04/2024 7:45 AM CDT LIPID PANEL, S Routine 06/04/2024 7:45 AM CDT Transplant Renal (HCC) MYCOPHENOLIC ACID, S Routine 06/04/2024 7:45 AM CDT Transplant Renal (HCC) HLA CLASS II SAB ANTIBODY SCREEN Routine 06/04/2024 7:45 AM CDT Transplant Renal (HCC) HLA CLASS I SAB ANTIBODY SCREEN Routine 06/04/2024 7:45 AM CDT Transplant Renal (HCC) TACROLIMUS LEVEL, B Routine 06/04/2024 7 :45 AM CDT Transplant Renal (HCC) 25-HYDROXYVITAMIN D2 AND D3, S Routine 06/04/2024 7:45 AM CDT Transplant Renal (HCC) CBC WITH DIFFERENTIAL, B Routine 06/04/2024 7:45 AM CDT Transplant Renal (HCC) PHOSPHORUS (INORGANIC), S Routine 06/04/2024 7:45 AM CDT Transplant Renal (HCC) PARATHYROID HORMONE (PTH), S Routine 06/04/2024 7:45 AM CDT Transplant Renal (HCC) MAGNESIUM, S Routine 06/04/2024 7:45 AM CDT Transplant Renal (HCC) HEMOGLOBIN A1C, B Routine 06/04/2024 7:4 5 AM CDT Transplant Renal (HCC) COMPREHENSIVE METABOLIC PANEL, S/P Routine 06/04/2024 7:45 AM CDT Transplant Renal (HCC) documented in this encounter Results * HLA Class I/II Combined cPRA, Serum (06/04/2024 7:45 AM CDT) Class I/II Combined cPRA 0 Not Applicable [...] HLA frequencies published by UNOS/OPTN listed here: http://optn.transplant.[facility].gov CLIA: [id number] CLIA Kiss Mixer: BIANKA ORO,Ph.D. Combined cPRA Specificities NONE 06/06/2024 11:07 AM CDT DBB8 Blood 06/04/2024 7:45 AM CDT 06/05/2024 7:56 AM CDT Josette Hannon M.D. LAB HLA ORDERABLES Final R esult Performing Organization Address [facility] Co de Phone Number [facility] [address] [place] [address], [facility] DBB8 [facility] [address] [place] [address] * BKV DNA Detect/Quant (06/04/2024 7:45 AM CDT) [facility] BKV DNA Detect/Quant, P Undetected Undetected IU/mL 06/05/2024 2:[address] [facility] Comment: Result in log IU/mL is Undetected. ----ADDITIONAL INFORMATION---- The quantification range of this assay is 22 to 100,000,000 IU/mL (1.34 log to 8.00 log IU/mL). Testing was performed using the tosin BKV test ([employer] Blood (Blood, Venous) 06/04/2024 7:45 AM CDT 06/04/2024 8:54 PM CDT us Josette Hannon M.D. LAB MICROBIOLOGY - BLOOD O RDERABLES Final Result Performing Organization Address [facility]/ZIP Co de Phone Number [facility] [address] [place] [address] [facility] [address] [place] [address] [place] [address] * (ABNORMAL) Parathyroid Hormone (PTH) (06/04/2024 7:45 AM CDT) Parathyroid Hormone (PTH), S 89(H) 15 - 65 pg/mL 06/04/2024 1:42 PM CDT [facility] Comment: Biotin has been identified by the personnel scheduler as a potential interfering substance. Higher concentrations of biotin may be found in multivitamins, hair/nail supplements, and workout supplements. If the result does not match clinical observations, repeat testing after patient refrains from the use of supplements for at least 12 hours. Blood (Blood, Venous) 06/04/2024 7:45 AM CDT 06/04/2024 1:06 PM CDT Josette Hannon M.D. LAB BLOOD ADD-ON Final Res ult - [facility] [address] [place] [address], [facility] [place] [address] [facility] [place] [address] * 25-Hydroxyvitamin D2 and D3 (06/04/2024 7:45 AM CDT) 25-Hydroxy D2 <4.0 ng/mL 06/05/2024 4:11 PM CDT SDS 25-Hydroxy D3 38 ng/mL 06/05/2024 4:11 PM CDT SDS 25-Hydroxy D Total 38 ng/mL 2023 4:[address] [facility] Comment: ----REFERENCE VALUE---- 25-HYDROXY D TOTAL (D2+D3) Optimum levels in the healthy population are 20-50. ----ADDITIONAL INFORMATION---- This test was developed and its performance characteristics determined by [facility] in a manner consistent with CLIA requirements. This test has not been cleared or approved by the U.S. Food and Drug Administration. Blood (Blood, Venous) 06/04/2024 7:45 AM CDT 06/05/2024 7:22 AM CDT Josette Hannon M.D. LAB BLOOD ADD-ON Final Res ult Performing Organization Address City/[facility] Co de Phone Number [facility] [address] [place] [address] [facility] [address] [place] [address] [place] [address] * (ABNORMAL) Mycophenolic Acid (06/04/2024 7:45 AM CDT) Mycophenolic Acid 2.2 1.0 - 3.5 mcg/mL 06/05/2024 11:[address] [facility] MPA Glucuronide 31(L) 35 - 100 mcg/mL 06/05/2024 11:[address] [facility] Comment: ----ADDITIONAL INFORMATION---- Target steady-state trough concentrations vary depending on the type of transplant, concomitant immunosuppression, clinical/institutional protocols, and time post-transplant. Results should be interpreted in conjunction with this clinical information and any physical signs/symptoms of rejection/toxicity. Testing performed by Liquid Chromatography-Tandem Mass Spectrometry (LC-MS/MS). This test was developed and its performance characteristics determined by [facility] in a manner consistent with CLIA requirements. This test has not been cleared or approved by the U.S. Food and Drug Administration. Blood (Blood, Venous) 06/04/2024 7:45 AM CDT 06/05/2024 7:33 AM CDT Josette Hannon M.D. LAB BLOOD NON ADD-ON Final Result Performing Organization Address [facility] Co de Phone Number [facility] [address] [place] [address] [facility] [address] [place] [address] [place] [address] * Tacrolimus, Trough (06/04/2024 7:45 AM CDT) Tacrolimus, Trough 6.4 5.0-15.0 (Trough) ng/mL 06/05/2024 10:[address] [facility] Comment: ----ADDITIONAL INFORMATION---- Target steady-state trough concentrations vary depending on the type of transplant, concomitant immunosuppression, clinical/institutional protocols, and time post-transplant. Results should be interpreted in conjunction with this clinical information and any physical signs/symptoms of rejection/toxicity. Testing performed by Liquid Chromatography-Tandem Mass Spectrometry (LC-MS/MS). This test was developed and its performance characteristics determined by [facility] in a manner consistent with CLIA requirements. This test has not been cleared or approved by the U.S. Food and Drug Administration. Blood (Blood, Venous) 06/04/2024 7:45 AM CDT 06/05/2024 7:07 AM CDT Josette Hannon M.D. LAB BLOOD NON ADD-ON Final Result [facility] [address] [place] [address] [facility] [address] [place] [address] [place] [address] * HLA Class II SAB Antibody Screen (06/04/2024 7:45 AM CDT) [facility] Signature Class II SAB Overall Result Negative Not Applicable 06/06/2024 10:45 AM CDT DBB8 Class II SAB Comment No DSA obsvd. 06/06/2024 10:45 AM CDT DBB8 Class II SAB >=5000 MFI NONE 06/06/2024 10:45 AM CDT DBB8 Class II SAB 5891-2113 MFI NONE 06/06/2024 10:45 AM CDT DBB8 Class II SAB 500-1999 MFI NONE 06/06/2024 10:45 AM CDT DBB8 SAB DRB1 Specificity NONE 06/06/2024 10:45 AM CDT DBB8 SAB [id number] Specificity NONE 06/06/2024 10:45 AM CDT DBB8 SAB DQB1 Specificity NONE 06/06/2024 10:45 AM CDT DBB8 SAB DPB1 Specificity NONE 06/06/2024 10:45 AM CDT DBB8 Comment: ----ADDITIONAL INFORMATION---- Method: Luminex Flow Cytometry CLIA: [id number] CLIA Kiss Mixer: BIANKA ORO,Ph.D. Blood (Blood, Venous) 06/04/2024 7:45 AM CDT 06/05/2024 7:56 AM CDT Josette Hannon M.D. LAB HLA ORDERABLES Final R esult Performing Organization Address [facility]/ZIP Co de Phone Number [facility] [address] [place] [address], [facility] DBB8 [facility] [address] [place] [address] * HLA Class I SAB Antibody Screen (06/04/2024 7:45 AM CDT) Class I SAB Overall Result Positive Not Applicable 06/06/2024 7:36 AM CDT DBB8 Class I SAB Comment No DSA obsvd. 06/06/2024 7:36 AM CDT DBB8 Class I SAB >=5000 MFI NONE 06/06/2024 7:36 AM CDT DBB8 Class I SAB [id number] MFI NONE 06/06/2024 7:36 AM CDT DBB8 [...] ----ADDITIONAL INFORMATION---- Method: Luminex Flow Cytometry CLIA: [id number] CLIA Kiss Mixer: BIANKA ORO,Ph.D. Blood (Blood, Venous) 06/04/2024 7:45 AM CDT 06/05/2024 7:56 AM CDT Josette Hannon M.D. LAB HLA ORDERABLES Final R esult Performing Organization Address City/[facility]/ZIP Co de Phone Number [facility] [address] [place] [address], [facility] DBB8 [facility] [address] [place] [address] * (ABNORMAL) Hemoglobin A1c (06/04/2024 7:45 AM [...] M.D. LAB BLOOD ADD-ON Final Res ult - [facility] [address] [place] [address], [place] [facility] [address] [address] * (ABNORMAL) Lipid Panel (06/04/2024 7:45 AM CDT) Triglycerides 131 mg/dL 06/04/2024 8:11 AM CDT [...] ADD-ON Final Res ult Performing Organization Address City/[facility]/[place] [address], [address] [address] * Magnesium (06/04/2024 7:45 AM CDT) Magnesium, P 2.2 1.7 - 2.3 mg/dL 06/04/2024 8:11 AM CDT CNFL Blood (Blood, Venous) 06/04/2024 7:45 AM CDT 06/04/2024 7:48 AM CDT us Josette Hannon M.D. LAB BLOOD ADD-ON Final Res ult Performing Organization Address City/[facility]/ZIP Co de Phone Number [address] [address], [facility] in [address] [address] * Phosphorus Inorganic (06/04/2024 7:45 AM CDT) Phosphorus (Inorganic), P 3.0 2.5 - 4.5 mg/dL 06/04/2024 8:11 AM CDT [facility] Blood (Blood, Venous) 06/04/2024 7:45 AM CDT 06/04/2024 7:48 AM CDT Josette Hannon M.D. LAB BLOOD ADD-ON Final Res ult - [facility] [address] [place] [address], [facility] CNFL [facility] [place] [address] * (ABNORMAL) Comprehensive Metabolic Panel (06/04/2024 7:45 [...] M.D. LAB BLOOD ADD-ON Final Res ult - [facility] [address] [place] [address], [place] [address] * (ABNORMAL) CBC with Differential, Blood (06/04/2024 7:45 AM CDT) Hemoglobin 14.0 13.2 - 16.6 g/dL 06/04/2024 [...] ADD-ON Final Res ult Performing Organization Address City/State/[facility] Co de Phone Number - [facility] [address] [place] [address], [facility] CNFL [facility] in [address] [address] documented in this encounter Visit Diagnoses Diagnosis Transplant Renal (HCC) documented in this encounter Additional Health Concerns Infection Onset Date Last Indicated Resolved Time Protective Environment 01/03/2023 01/03/2023 Assessment Noted Time PHQ-9 Depression Total Score: 0 07/17/20 17 1:08 PM CDT documented as of this encounter Care Teams Substation Operator Helper Relationship Specialty Start Date End Date Elsewhere, Pcp PCP - General Internal Medicine 05/02/22 [facility] [address] [place], [place] [address] Laboratory Medicine 07/19/20 documented as of this encounter
== END 2024-09-02 08:04 | disposition home or self-care (01) ==
PROVIDERS: PCP Internal Medicine; Visit Provider Internal Medicine
DX: R73.03 Prediabetes (principal); Z94.0 Kidney transplant status; N02.8 Recurrent and persistent hematuria with other morphologic changes
CPT/HCPCS: 82043; 82565; 82570; 82947; 83735; 84100; 84132

== ENCOUNTER 2024-09-30 08:32 | Outpatient (CLI) | payer BC, SELFPAY | END 2024-09-30 08:33 | disposition home or self-care (01) | LOC: NFLDREF 08:35 | PROVIDERS: PCP Internal Medicine; Visit Provider Internal Medicine | DX: R19.7 Diarrhea, unspecified (principal) | CPT/HCPCS: 80053 ==

== ENCOUNTER 2024-11-25 07:35 | Outpatient (CLI) | payer BC, SELFPAY | END 2024-11-25 07:36 | disposition home or self-care (01) | LOC: NFLDREF 11-26 03:15 | PROVIDERS: PCP Internal Medicine; Referring Provider Internal Medicine; Visit Provider Internal Medicine | DX: D84.821 Immunodeficiency due to drugs (principal); R73.01 Impaired fasting glucose; Z94.0 Kidney transplant status; Z79.899 Other long term (current) drug therapy | CPT/HCPCS: 82043; 82565; 82570; 82947; 83735; 84100; 84132 ==

== ENCOUNTER 2025-03-09 07:49 | Outpatient (CLI) | payer BC, SELFPAY ==
[2025-03-09 09:23] LABS: Basophils Absolute Auto 0.01 K/uL (0.00-0.30); Basophils Percent Auto 0.2 % (0.0-3.0); Eosinophils Absolute Auto 0.03 K/uL (0.00-0.50); Eosinophils Percent Auto 0.6 % (0.0-7.0); Hematocrit 43.6 % (37.0-53.0); Hemoglobin* 14.6 gm/dL (13.5-17.5); Immature Granulocytes Abs Auto 0.01 K/uL (0.00-0.30); Immature Granulocytes Pct Auto 0.2 %; Lymphocytes Absolute Auto 1.18 K/uL (0.90-2.90); Lymphocytes Percent Auto 23.5 % (20-44); Mean Corpuscular HGB Conc 34 gm/dL (32-36); Mean Corpuscular Hemoglobin 32 pg (26-34); Mean Corpuscular Volume 96 fL (80-100); Monocytes Percent Auto 7.2 % (0.0-11.0); Neutrophils Absolute Auto 3.44 K/uL (1.7-7.0); Neutrophils Percent Auto 68.3 % (42.0-72.0); Platelet Count* 176 K/uL (140-440); RDW Coefficient of Variation % 11.8 % (11.5-15.5); Red Blood Count 4.54 m/uL (4.30-5.90); White Blood Count* 5.03 K/uL (4.50-11.00)
[2025-03-09 09:30] LABS: Chloride* 103 mmol/L (96-114); Potassium* 4.3 mmol/L (3.6-5.1); Sodium* 137 mmol/L (135-149)
[2025-03-09 09:33] LABS: Anion Gap 8 mEq/L (7-15); Blood Urea Nitrogen* 21 mg/dL (7-30); Calcium* 9.5 mg/dL (8.4-10.6); Carbon Dioxide* 26 mmol/L (20-32); Creatinine* 1.6 mg/dL (0.5-1.5); Estimated Glomerular Filt Rate 50 ml/min; Glucose* 159 mg/dL (60-115)
[2025-03-09 09:42] LABS: Slide Review Reflex No
[2025-03-09 09:53] LABS: Microalbumin Creatinine Ratio 0 mg/g (0-30); Microalbumin Urine 1 mg/dL
== END 2025-03-09 07:50 | disposition home or self-care (01) ==
LOC: NPINS 07:52
PROVIDERS: PCP Internal Medicine; Visit Provider Nurse Practitioner
DX: N02.8 Recurrent and persistent hematuria with other morphologic changes (principal); D84.9 Immunodeficiency, unspecified; Z94.0 Kidney transplant status; Z79.899 Other long term (current) drug therapy
CPT/HCPCS: 80048; 80197; 82043; 82570; 85025

== ENCOUNTER 2025-09-09 07:42 | Outpatient (CLI) | payer BC, SELFPAY ==
[2025-09-09 10:16] LABS: Hematocrit* 46.0 % (37.0-53.0); Hemoglobin* 15.3 gm/dL (13.5-17.5); Mean Corpuscular Hemoglobin 32 pg (26-34); Mean Corpuscular Volume 97 fL (80-100); Red Blood Count* 4.74 m/uL (4.30-5.90); White Blood Count* 4.13 K/uL (4.50-11.00)
[2025-09-09 10:17] LABS: Immature Granulocytes Abs Auto 0.00 K/uL (0.00-0.30); Immature Granulocytes Pct Auto 0.2 %; Lymphocytes Absolute Auto 1.10 K/uL (0.90-2.90); Mean Corpuscular HGB Conc 33 gm/dL (32-36); Slide Review Reflex No
[2025-09-09 10:24] LABS: Chloride* 104 mmol/L (96-114); Potassium* 4.9 mmol/L (3.6-5.1); Sodium* 139 mmol/L (135-149)
[2025-09-09 10:27] LABS: Anion Gap 7 mEq/L (7-15); Blood Urea Nitrogen* 21 mg/dL (7-30); Carbon Dioxide* 28 mmol/L (20-32); Creatinine* 1.5 mg/dL (0.5-1.5); Estimated Glomerular Filt Rate 54 ml/min
[2025-09-09 10:28] LABS: Calcium* 10.1 mg/dL (8.4-10.6); Glucose* 163 mg/dL (60-115)
== END 2025-09-09 07:43 | disposition home or self-care (01) ==
LOC: NPINS 07:43
PROVIDERS: PCP Internal Medicine; Visit Provider Nurse Practitioner
DX: N02.8 Recurrent and persistent hematuria with other morphologic changes (principal); Z94.0 Kidney transplant status; Z79.899 Other long term (current) drug therapy; D84.9 Immunodeficiency, unspecified
CPT/HCPCS: 80048; 80197; 82043; 82570; 85025